=== PATIENT | female | born 1940 | race Caucasian/White ===

== ENCOUNTER → 2016-12-18 | Outpatient (CLI) | payer MEDICARE ==
[~2016-12-18] MED LIST: AC325T PO; ADV1DS1; ALB0.5V IH; ALBU17AE23 INH; ALBU17AE3; ALBUTERAL SULFATE; ALBUTEROL NEB; ASP325T; ASP81TEC; ASP81TEC PO; ASPI325T32 PO; CALC-913 PO; CHLO25CA10 PO; CHLR10C PO; CHOL10007 PO; CLOP75TA; CLPD75T; COZAAR; DGX.125T PO; DIGO125T PO; DIGO125T18 PO; DIGO125T91; DILT120C PO; DILT120C53 PO; FAMO20TA13 PO; FAMO20TA5 PO; FLUT1DIS27 IH; FORTICAL; FRSM40T; FURO20TA4 PO; FURO40TA4 PO; HDR10T; HYDR-2854 PO; HYDR-3584 PO; HYOS0.1296 PO; KCL10CCR; KCL10CCR PO; KCL20TCR; LEVO750T39 PO; LOSA25TA15; LOSA25TA5 PO; LOSA50TA36 PO; LOSARTAN 12.5 MG; MAGN250T PO; METH16TA PO; METH2TAB PO; MIRT30TA19 PO; MIRT30TA6 PO; MIRTAZAPINE 22.5 MG; MNTL10T; MRTZ15T; MULT-35 PO; NF-METHYLP PO; NTG; NTG SL; POTA10TA10 PO; PSYL1PAC10 PO; SENN-33 PO; SIMV40TA2 PO; SIMV40TA4 PO; SPIRONOLACTONE; TIOT18CA INH; TIOT18CA2 IH; TIOT18CA2 INH
--- NOTE | 2016-12-18 12:33 | Diagnostic Imaging Report ---
INDICATION: Intermittent right-sided headache. TECHNIQUE: Routine non contrast-enhanced axial images were obtained from the skull base to the vertex. COMPARISON: None. FINDINGS: The ventricles and cortical sulci are diffusely prominent, compatible with age-related volume loss. There are confluent areas of abnormal, low attenuation in the periventricular white matter. This is consistent with small vessel ischemic changes; age-indeterminate. There is no prior study available for comparison. There is no midline shift or mass-effect. No acute intra-axial hemorrhage is seen. There are no abnormal areas of increased or decreased density to suggest acute hemorrhage or edema. No extra-axial masses or collections are present. The bony calvarium is intact. The visualized paranasal sinuses are unremarkable. The mastoid air cells are clear. IMPRESSION: 1. No acute intracranial abnormality. No CT evidence of mass, acute infarct or intracranial hemorrhage. 2. Small vessel ischemic changes in the periventricular and subcortical white matter; likely chronic. Dictated by: Dictated on workstation # [id number]
== END ==
LOC: RAD 12:09
PROVIDERS: ATTEND Family Medicine
DX: R51 Headache (principal)
CPT/HCPCS: 70450

== ENCOUNTER 2017-01-04 07:25 | Inpatient (IN) | payer MEDICARE ==
[~2017-01-04] VITALS: Ht 152.4 cm; Wt 48.8 kg
[~2017-01-04 07:25] MED LIST changes: -CHOL10007 PO; -DIGO125T18 PO; -DILT120C53 PO; -HYDR-3584 PO; -LEVO750T39 PO; -LOSA50TA36 PO; -MAGN250T PO; -MIRT30TA6 PO; -POTA10TA10 PO; -SIMV40TA4 PO; -TIOT18CA2 IH
--- NOTE | 2017-01-04 07:48 | ED General ---
General Chief Complaint: Cough/Cold/Flu Symptoms Stated Complaint: SINUS DRAINAGE/CHEST CONGESTION Source of Information: Patient Exam Limitations: No Limitations History of Present Illness Time Seen by Provider: 07:33 Initial Comments Here with report of central chest tightness and aching that has been going on since last Wednesday morning (3 days). Reports sinus drainage and cough. Also reports fever and chills yesterday. Denies nausea or vomiting. Denies rash. Timing/Duration: 3-4 Days, Getting Worse Severity: Moderate Associated Systoms: Chest Pain Cough Fever/ChillsNo Nausea/Vomiting, Shortness of AirNo Weakness Allergies and Home Medications Allergies Coded Allergies: diphenhydramine HCl (Unverified Allergy, Severe, anaphalaxis, 09/10/14) Pt states this happened several yrs ago and that she had almost forgotten about it because she has avoided t for so long. fentanyl (Unverified Allergy, Mild, 09/10/14) PT DOES NOT WANT TO TAKE--SHE STAES IT MADE HER COPD WORSE midazolam (Unverified Allergy, Mild, PT TAKE LIBRIUM AT HOME, 09/10/14) PT DOESN'T WANT TO TAKE--SHE STATED IT MADE HER COPD OWRSE. Beta-Blockers (Beta-Adrenergic Bloc (Verified Allergy, Unknown, 09/10/14) Cephalosporins (Verified Allergy, Unknown, HAS RECEIVED CEFEPIME IN PAST W /O PROBLEM, 09/14/14) Penicillins (Verified Allergy, Unknown, HAS REC AZACTAM IN PAST WITHOUT PROBLEMS, 09/10/14) risedronic acid (Verified Allergy, Unknown, 09/10/14) prednisone (Unverified Adverse Reaction, Intermediate, Large doses cause SOA, 09/10/14) meperidine (Unverified Adverse Reaction, Mild, NAUSEA, 09/10/14) propofol (Unverified Adverse Reaction, Mild, 09/10/14) PT DOES NOT WANT TO TAKE--SHE STATES IT MADE HER COPD WORSE Erythromycin Base (Verified Adverse Reaction, Unknown, MAKES PATIENT NAUSEADED, 09/10/14) Home Medications Albuterol 2.5 Mg/0.5 Ml Nebu 2.5 MG NEB TID (Reported) Albuterol 17 Gm Aerosol 1 PUFF INH HS PRN PRN SHORTNESS OF BREATH (Reported) Aspirin 81 Mg Tabec 81 MG PO DAILY (Reported) Calcium Carbonate/Vitamin D3 1 Each Tablet 1 TAB PO DAILY (Reported) Chlordiazepoxide Hcl 25 Mg Capsule 25 MG PO BID (Reported) Digoxin 0.125 Mg Tab 0.0625 MG PO DAILY (Reported) TAKES 1/2 (0.125MG) TABLET Diltiazem Hcl 120 Mg Cap.sr.24h 120 MG PO DAILY (Reported) Famotidine 20 Mg Tablet 20 MG PO BID (Reported) Fluticasone/Salmeterol 1 Disk Inhp 1 PUFF IH BID (Reported) Furosemide 20 Mg Tablet 20 MG PO EVERY OTHER DAY (Reported) Hydroxyzine Hcl 10 Mg Tablet 10 MG PO HS (Reported) Hyoscyamine Sulfate 0.125 Mg Tablet #20 0.125 MG PO Q4H PRN PRN SPASMS Prescribed by: MELODY PAZ on 07/13/15 1438 Losartan Potassium 25 Mg Tablet 25 MG PO DAILY (Reported) Losartan Potassium 25 Mg Tablet 25 MG PO HS PRN PRN BLOOD PRESSURE ABOVE 100/60 (Reported) Mirtazapine 30 Mg Tablet 30 MG PO HS (Reported) Multivitamin 1 Each Tablet 1 TAB PO DAILY (Reported) Potassium Chloride 10 Meq Tablet.sa 10 MEQ PO EVERY OTHER DAY (Reported) Sennosides/Docusate Sodium 1 Each Tablet #30 2 EACH PO BID Prescribed by: MELODY PAZ on 07/13/15 1438 Simvastatin 40 Mg Tablet 40 MG PO HS (Reported) Tiotropium [place] 1 Inh Aerp 1 CAP INH DAILY (Reported) Constitutional: see HPI chills fever malaise EENTM: nose congestion see HPINo throat pain Respiratory: see HPI cough short of breath wheezing Cardiovascular: see HPI chest painNo edema Gastrointestinal: no symptoms reportedNo abdominal pain, No nausea, No vomiting Genitourinary: no symptoms reported : No Musculoskeletal: no symptoms reported Skin: no symptoms reported Psychiatric/Neurological: No Symptoms Reported All Other Systems Reviewed Negative Unless Noted: Yes Past Tyjcqld-Rcfuyu-Iqtmww Hx Patient Social History Alcohol Use: Denies Use Recreational Drug Use: No Smoking Status: Former Smoker Former Smoker/When Quit: Jul 09, 2006 Recent Foreign Travel: No Contact w/Someone Who Travel: No Recent Hopitalizations: Yes Immunizations Up To Date Tetanus Booster (TDap): More than 5yrs PED Vaccines UTD: No Date of Pneumonia Vaccine: Jul 11, 2012 Date of Influenza Vaccine: Aug 15, 2014 Surgeries HX Surgeries: Yes (thoracotomy) Respiratory Hx Respiratory Disorders: Yes (HOME O2 AT 2L) Respiratory Disorders: Pneumonia, COPD, Emphysema Cardiovascular Hx Cardiac Disorders: Yes (ISCHEMIC CARDIOMYOPATHY) Neurological Hx Neurological Disorders: No Reproductive System Hx Reproductive Disorders: No Sexually Transmitted Disease: No HIV/AIDS: No Female Reproductive Disorders: Denies Genitourinary Hx Genitourinary Disorders: No Gastrointestinal Hx Gastrointestinal Disorders: Yes Gastrointestinal Disorders: Gastroesophageal Reflux, Hemorrhoids, Gall Bladder Disease Musculoskeletal Hx Musculoskeletal Disorders: Yes Musculoskeletal Disorders: Arthritis Endocrine Hx Endocrine Disorders: No HEENT HX ENT Disorders: Yes HEENT Disorders: Cataract Loss of Vision: Denies Hearing Impairment: Hard of Hearing Cancer Hx Cancer: No Psychosocial Hx Psychiatric Problems: Yes Behavioral Health Disorders: Anxiety, PTSD Integumentary HX Skin/Integumentary Disorder: No Blood Transfusions Hx Blood Disorders: No Adverse Reaction to a Blood Tr: No Reviewed Nursing Assessment Reviewed/Agree w Nursing PMH: Yes Family Medical History Family Medial History: Alcoholism SONS Asthma DAUGHTER SONS Cardiovascular disease 19 MOTHER Cataracts 19 MOTHER Deafness or hearing loss G8 SISTER Diabetes mellitus SONS Gastroenteritis SONS Headache disorder SONS Hypertension SONS Myocardial infarction 19 FATHER Psychosocial problem 19 MOTHER Physical Exam-Suspected Sepsis Physical Exam Vital Signs Vital Sign - Last 12Hours 01/04/17 07:31 Temp 99.2 Pulse 100 Resp 18 B/P 180/77 Capillary Refill : General Appearance: No Apparent Distress WD/WN HEENT: PERRL/EOMI Pharynx Normal Other (nasal congestion bilateral) Neck: Non Tender Supple Respiratory: No Respiratory Distress Crackles (left upper lobe) Wheezing ( mild throughout) Other (does have pursed lip breathing. Has chronic lung disease and what appeared to be her baseline) Cardiovascular: No Murmur Tachycardia Gastrointestinal: Non Tender Soft Back: Normal Inspection No CVA Tenderness No Vertebral Tenderness Extremity: Normal Capillary Refill Normal Range of Motion Non Tender No Calf Tenderness Neurologic/Psychiatric: Alert Oriented x3 No Motor/Sensory Deficits Skin: normal color warm/dry Progress/Results/Core Measures Suspected Sepsis SIRS Temperature: Pulse: Respiratory Rate: Laboratory Tests 01/04/17 07:54: White Blood Count 12.8H Blood Pressure / Mean: Laboratory Tests 01/04/17 07:54: Creatinine 1.03, INR Comment 1.0, Platelet Count 283, Total Bilirubin 0.5 Results/Orders Lab Results Laboratory Tests Test 01/04/17 07:54 Range/Units Activated Partial Thromboplast Time 31 24-35 SEC Alanine Aminotransferase (ALT/SGPT) 19 0-55 U/L Albumin 3.7 3.2-4.5 G/DL Alkaline Phosphatase 67 40-136 U/L Anion Gap 9 5-14 MMOL/L Aspartate Amino Transf (AST/SGOT) 21 5-34 U/L BUN/Creatinine Ratio 14 Basophils # (Auto) 0.0 0.0-0.1 10^3/uL Basophils (%) (Auto) 0 0-10 % Blood Urea Nitrogen 14 7-18 MG/DL Calcium Level 9.5 8.5-10.1 MG/DL Carbon Dioxide Level 26 21-32 MMOL/L Chloride Level 99 98-107 MMOL/L Creatinine 1.03 0.60-1.30 MG/DL Eosinophils # (Auto) 0.2 0.0-0.3 10^3/uL Eosinophils (%) (Auto) 2 0-10 % Estimat Glomerular Filtration Rate 52 Glucose Level 102 70-105 MG/DL Hematocrit 36 35-52 % Hemoglobin 11.8 11.5-16.0 G/DL INR Comment 1.0 0.8-1.4 Lactic Acid Level 0.8 0.5-2.0 MMOL/L Lymphocytes # (Auto) 1.0 1.0-4.0 X 10^3 Lymphocytes (%) (Auto) 8 L 12-44 % Mean Corpuscular Hemoglobin 31 25-34 PG Mean Corpuscular Hemoglobin Concent 33 32-36 G/DL Mean Corpuscular Volume 96 80-99 FL Mean Platelet Volume 8.7 7.4-10.4 FL Monocytes # (Auto) 1.5 H 0.0-1.0 X 10^3 Monocytes (%) (Auto) 12 0-12 % Neutrophils # (Auto) 10.2 H 1.8-7.8 X 10^3 Neutrophils (%) (Auto) 79 H 42-75 % Platelet Count 283 130-400 10^3/uL Potassium Level 4.6 3.6-5.0 MMOL/L Prothrombin Time 12.7 12.2-14.7 SEC Red Blood Count 3.76 L 4.35-5.85 10^6/uL Red Cell Distribution Width 12.7 10.0-14.5 % Sodium Level 134 L 135-145 MMOL/L Total Bilirubin 0.5 0.1-1.0 MG/DL Total Protein 6.8 6.4-8.2 G/DL Troponin I < 0.30 <0.30 NG/ML White Blood Count 12.8 H 4.3-11.0 10^3/uL My Orders Orders-PAUL LEBRON MD Cbc With Automated Diff (01/04/17 07:39) Comprehensive Metabolic Panel (01/04/17 07:39) Lactic Acid Analyzer (01/04/17 07:39) Blood Culture (01/04/17 07:39) Sputum Culture (01/04/17 07:39) Ua Culture If Indicated (01/04/17 07:39) Protime With Inr (01/04/17 07:39) Partial Thromboplastin Time (01/04/17 07:39) O2 (01/04/17 07:39) Saline Lock/Iv-Start (01/04/17 07:39) Ekg Tracing (01/04/17 07:39) Troponin I (01/04/17 07:39) Vital Signs Adult Sepsis Patie Q1HR (01/04/17 07:39) Remove Rings In Anticipation O (01/04/17 07:39) Chest Pa/Lat (2 View) (01/04/17 07:39) Ct Chest Wo (01/04/17 09:26) Vital Signs/I&O Vital Sign - Last 12Hours 01/04/17 07:31 Temp 99.2 Pulse 100 Resp 18 B/P 180/77 Capillary Refill : Progress Note : Progress Note Seen and evaluated. IV, labs, chest x-ray, blood cultures and lactic acid ordered. We will also check troponin and EKG due to chest pain. Patient takes 81 milligrams of aspirin daily. Monitor patient. 0920: Chest x-ray findings noted. CT chest ordered to help with the termination of chronic disease versus pneumonia. 1109: Discussed case with Dr. Paz. Patient has findings of left upper lobe pneumonia. She has severe chronic lung disease that will require inpatient management. Initiate Levaquin 750 mg IV. Discussed with Dr. King and he accepts patient for consult. Patient has multiple antibiotic allergies. She is at risk for pseudomonas type infection. I did discuss the case with Sb Cortes, pharmacist. He is recommending meropenem as second agent and he will adjust as appropriate in consultation with medical team. Discussed findings and concerns with patient and she agrees with admission. ECG Initial ECG Impression Date: Jan 04, 2017 Initial ECG Impression Time: 08:07 Initial ECG Rate: 93 Initial ECG Rhythm: Normal Sinus Comment Sinus rhythm with normal axis. No evidence of ST elevation MD. Diffuse repolarization abnormality noted on previous exam 04/21/13. Interpreted by me. Diagnostic Imaging Diagonstic Imaging: Xray Plain Films/CT/US/NM/MRI: chest Comments VIA [facility]. [place], [place] NAME: HAI HARGROVE [facility] REC#: [id number] PT STATUS: REG ER : 1940 PHYSICIAN: PAUL LEBRON MD ADMIT DATE: 01/04/17/ER Draft Date of Exam:01/04/17 CHEST PA/LAT (2 VIEW) INDICATION: Dyspnea and sternal pain. PA and lateral views of the chest are obtained. Comparison is made to study of 10/12/2016. Bilateral air trapping is again noted with prominence of interstitial markings in both lungs. The masslike density in the left apex is slightly more conspicuous on the current exam. There is no evidence of pneumothorax. No significant pleural fluid is identified. IMPRESSION: Findings remain consistent with COPD with mild focally increased density in the left apex. This may represent progression of fibrosis; however, superimposed inflammation is not excluded. This could be further assessed with short-term radiographic followup or CT imaging. Dictated on workstation # [id number] Dict: 01/04/17 0854 Trans: 01/04/17 0858 [id number] Interpreted by: SUZI WILLIAM MD Electronically signed by: Reviewed: Reviewed by Me Diagonstic Imaging: CT Plain Films/CT/US/NM/MRI: chest, abdomen Comments NAME: HAI HARGROVE [facility] REC#: [id number] PT STATUS: REG ER : 1940 PHYSICIAN: PAUL LEBRON MD ADMIT DATE: 01/04/17/ER Signed Date of Exam: 01/04/17 CT CHEST WO PROCEDURE: CT chest without contrast. TECHNIQUE: Multiple contiguous axial images were obtained through the chest without the use of intravenous contrast. INDICATION: Fever. FINDINGS: There is partial opacification with likely a small fluid component seen in a left upper lobe cavity or bullae. This is associated with an irregular infiltrate along its inferior aspect involving an area measuring 3.5 x 2.3 CM. This is larger compared to 10/14/2016 exam and is completely new when compared to 03/06/2015 exam. There is background severe emphysema and areas of scarring seen in both lungs. This is particularly prominent in the lung apices. Bullous changes in the right lung apex is particularly prominent as well. There is no significant pleural effusion. 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 No mediastinal mass. There is a trace pericardial effusion. The heart size is normal. No significant lymphadenopathy in the mediastinum is seen. No axillary lymphadenopathy. The alicia are not opacified on this unenhanced exam with no definitive hilar mass. Sections in the upper abdomen demonstrate a 1.1 CM cyst in the spleen similar to prior exams. The osseous structures appear grossly unremarkable. IMPRESSION: 1. Partial opacification and adjacent alveolar consolidation at a left upper lobe old cavity may relate to a superimposed infection. Followup CT scan of the chest in 6 weeks is recommended to ensure resolution. 2. Advanced emphysema changes. Dictated by: Dictated on workstation # [id number] Dict: 01/04/17 1006 Trans: 01/04/17 1110 [facility] [id number] Interpreted by: ANSLEY DUNHAM MD Electronically signed by:ANSLEY DUNHAM MD 01/04/17 1113 Departure Communication Time/Spoke to Admitting Phy: 11:09 Time/Spoke to Consulting Physi: 11:11 Impression Impression: Primary Impression: Left upper lobe pneumonia Qualified Code: J18.1 - Lobar pneumonia, unspecified organism Disposition: ADMITTED INPATIENT Condition: Stable Decision to Admit Reason: Admit from ER (General) Decision to Admit/Date: Jan 04, 2017 Time/Decision to Admit Time: 11:09 Departure-Patient Inst. Referrals: MELODY PAZ DO (PCP/Family) Primary Care Physician PAUL LEBRON MD Jan 04, 2017 07:48
[2017-01-04 08:07] LABS: BASOPHILS % (AUTO) 0 % (0-10); EOSINOPHILS # (AUTO) 0.2 10^3/uL (0.0-0.3); EOSINOPHILS % (AUTO) 2 % (0-10); LYMPHOCYTES % (AUTO) 8 % (12-44); MEAN CORPUSCULAR HEMOGLOBIN 31 PG (25-34); MEAN CORPUSCULAR HGB CONC 33 G/DL (32-36); MEAN CORPUSCULAR VOLUME 96 FL (80-99); MEAN PLATELET VOLUME 8.7 FL (7.4-10.4); MONOCYTES # (AUTO) 1.5 X 10^3 (0.0-1.0); MONOCYTES % (AUTO) 12 % (0-12); NEUTROPHILS # (AUTO) 10.2 X 10^3 (1.8-7.8); NEUTROPHILS % (AUTO) 79 % (42-75); PLATELET COUNT 283 10^3/uL (130-400); RED BLOOD COUNT 3.76 10^6/uL (4.35-5.85); RED CELL DISTRIBUTION WIDTH 12.7 % (10.0-14.5); WHITE BLOOD COUNT 12.8 10^3/uL (4.3-11.0)
[2017-01-04 08:15] LABS: PROTHROMBIN TIME PATIENT 12.7 SEC (12.2-14.7)
[2017-01-04 08:23] LABS: ALANINE AMINOTRANSFERASE 19 U/L (0-55); ALBUMIN 3.7 G/DL (3.2-4.5); ANION GAP 9 MMOL/L (5-14); ASPARTATE AMINO TRANSFERASE 21 U/L (5-34); BILIRUBIN,TOTAL 0.5 MG/DL (0.1-1.0); BLOOD UREA NITROGEN 14 MG/DL (7-18); BUN/CREATININE RATIO 14; CALCIUM 9.5 MG/DL (8.5-10.1); CARBON DIOXIDE 26 MMOL/L (21-32); CHLORIDE 99 MMOL/L (98-107); CREATININE SERUM 1.03 MG/DL (0.60-1.30); GFR ESTIMATED 52; GLUCOSE 102 MG/DL (70-105); POTASSIUM 4.6 MMOL/L (3.6-5.0); SODIUM 134 MMOL/L (135-145); TOTAL PROTEIN 6.8 G/DL (6.4-8.2)
[2017-01-04 08:29] LABS: TROPONIN I < 0.30 NG/ML (<0.30)
--- NOTE | 2017-01-04 08:58 | Diagnostic Imaging Report ---
INDICATION: Dyspnea and sternal pain. PA and lateral views of the chest are obtained. Comparison is made to study of 10/12/2016. Bilateral air trapping is again noted with prominence of interstitial markings in both lungs. The masslike density in the left apex is slightly more conspicuous on the current exam. There is no evidence of pneumothorax. No significant pleural fluid is identified. IMPRESSION: Findings remain consistent with COPD with mild focally increased density in the left apex. This may represent progression of fibrosis; however, superimposed inflammation is not excluded. This could be further assessed with short-term radiographic followup or CT imaging. Dictated by: Dictated on workstation # [id number]
--- NOTE | 2017-01-04 10:27 | Diagnostic Imaging Report ---
PROCEDURE: CT chest without contrast. TECHNIQUE: Multiple contiguous axial images were obtained through the chest without the use of intravenous contrast. INDICATION: Fever. FINDINGS: There is partial opacification with likely a small fluid component seen in a left upper lobe cavity or bullae. This is associated with an irregular infiltrate along its inferior aspect involving an area measuring 3.5 x 2.3 CM. This is larger compared to 10/14/2016 exam and is completely new when compared to 03/06/2015 exam. There is background severe emphysema and areas of scarring seen in both lungs. This is particularly prominent in the lung apices. Bullous changes in the right lung apex is particularly prominent as well. There is no significant pleural effusion. 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 No mediastinal mass. There is a trace pericardial effusion. The heart size is normal. No significant lymphadenopathy in the mediastinum is seen. No axillary lymphadenopathy. The alicia are not opacified on this unenhanced exam with no definitive hilar mass. Sections in the upper abdomen demonstrate a 1.1 CM cyst in the spleen similar to prior exams. The osseous structures appear grossly unremarkable. IMPRESSION: 1. Partial opacification and adjacent alveolar consolidation at a left upper lobe old cavity may relate to a superimposed infection. Followup CT scan of the chest in 6 weeks is recommended to ensure resolution. 2. Advanced emphysema changes. Dictated by: Dictated on workstation # [id number]
[2017-01-04] MEDS ORDERED: LEVOFLOXACIN 750 MG/150 ML IV 150 ML IV ONE (11:45)
[2017-01-04] MEDS ORDERED: MEROPENEM 500 MG/NS 100 ML IVPB IV SCH ×2 (12:19)
[2017-01-04] MEDS: RT-ALBUTEROL SULF 2.5 MG/3 ML PRE-MIX VIAL INH PRN (12:31)
[2017-01-04] MEDS ORDERED: MAGN250T PO (13:03)
[2017-01-04] MEDS ORDERED: SIMV40TA4 PO (13:03)
[2017-01-04] MEDS ORDERED: TIOT18CA2 IH (13:03)
[2017-01-04] MEDS ORDERED: MIRT30TA6 PO (13:03)
[2017-01-04] MEDS ORDERED: HYDR-3584 PO (13:03)
[2017-01-04] MEDS ORDERED: DILT120C53 PO (13:03)
[2017-01-04] MEDS ORDERED: SENN-33 PO (13:03)
[2017-01-04] MEDS ORDERED: CHLO25CA10 PO (13:03)
[2017-01-04] MEDS ORDERED: FURO20TA4 PO (13:03)
[2017-01-04] MEDS ORDERED: POTA10TA10 PO (13:03)
[2017-01-04] MEDS ORDERED: DIGO125T18 PO (13:03)
[2017-01-04] MEDS ORDERED: LOSA50TA36 PO (13:03)
[2017-01-04] MEDS ORDERED: CHOL10007 PO (13:03)
[2017-01-04] MEDS: ACETAMINOPHEN 500 MG TAB (TYLENOL) PO PRN ×2 (13:11→21:01)
[2017-01-04] MEDS ORDERED: RT-ALBUTEROL SULF 2.5 MG/3 ML PRE-MIX VIAL INH SCH (14:00)
[2017-01-04 16:00] VITALS: BP 106/58
[2017-01-04] MEDS: NS IV 1000 ML 1,000 ML IV SCH (16:19)
[2017-01-04] MEDS: MEROPENEM 500 MG/NS 100 ML IVPB IV SCH ×4 (16:23→22:53)
[2017-01-04] MEDS ORDERED: SENNA W/DOCUSATE (SENOKOT S) TABLET PO PRN (19:00)
[2017-01-04] MEDS ORDERED: PATIENT MAY USE OWN MEDS, ALL MC SCH (19:00)
[2017-01-04 19:05] VITALS: BP 127/58
--- NOTE | 2017-01-04 19:28 | History & Physicial ---
History of Present Illness History of Present Illness Reason for visit/HPI This is a 76 year old female with a known history of COPD who presented to the emergency room with a 3 days history of worsening chest tightness and fever and chills. She was found to have a left sided pneumonia and it was decided to admit her for IV antibiotics. Date of Admission Jan 04, 2017 at 11:15 I consulted on this patient on 01/04/17 19:22 Attending Physician Ruthie Paz DO Admitting Physician Ruthie Paz DO Consult Allergies and Home Medications Allergies Coded Allergies: diphenhydramine HCl (Unverified Allergy, Severe, anaphalaxis, 09/10/14) Pt states this happened several yrs ago and that she had almost forgotten about it because she has avoided t for so long. fentanyl (Unverified Allergy, Mild, 09/10/14) PT DOES NOT WANT TO TAKE--SHE STAES IT MADE HER COPD WORSE midazolam (Unverified Allergy, Mild, PT TAKE LIBRIUM AT HOME, 09/10/14) PT DOESN'T WANT TO TAKE--SHE STATED IT MADE HER COPD OWRSE. Beta-Blockers (Beta-Adrenergic Bloc (Verified Allergy, Unknown, 09/10/14) Cephalosporins (Verified Allergy, Unknown, HAS RECEIVED CEFEPIME IN PAST W /O PROBLEM, 09/14/14) Penicillins (Verified Allergy, Unknown, HAS REC AZACTAM IN PAST WITHOUT PROBLEMS, 09/10/14) risedronic acid (Verified Allergy, Unknown, 09/10/14) prednisone (Unverified Adverse Reaction, Intermediate, Large doses cause SOA, 09/10/14) meperidine (Unverified Adverse Reaction, Mild, NAUSEA, 09/10/14) propofol (Unverified Adverse Reaction, Mild, 09/10/14) PT DOES NOT WANT TO TAKE--SHE STATES IT MADE HER COPD WORSE erythromycin base (Verified Adverse Reaction, Unknown, MAKES PATIENT NAUSEADED, 09/10/14) Home Medications Albuterol 2.5 Mg/0.5 Ml Nebu 2.5 MG IH QID (Reported) Albuterol 17 Gm Aerosol 1 PUFF INH HS PRN PRN SHORTNESS OF BREATH (Reported) Aspirin 81 Mg Tabec 81 MG PO DAILY (Reported) Chlordiazepoxide HCl 25 Mg Capsule 25 MG PO BID (Reported) Cholecalciferol (Vitamin D3) 1,000 Unit Capsule 1,000 UNIT PO DAILY (Reported) Digoxin 125 Mcg Tablet 62.5 MG PO DAILY (Reported) TAKES 1/2 OF A (125 MCG) TABLET Diltiazem HCl 120 Mg Cap.er.24h 120 MG PO DAILY (Reported) Famotidine 20 Mg Tablet 20 MG PO BID (Reported) Fluticasone/Salmeterol 1 Disk Inhp 1 PUFF IH BID (Reported) Furosemide 20 Mg Tablet 20 MG PO Q48H (Reported) Hydroxyzine HCl 10 Mg Tablet 10 MG PO HS (Reported) Losartan Potassium 50 Mg Tablet 50 MG PO BID (Reported) Magnesium 250 Mg Tablet 250 MG PO DAILY (Reported) Mirtazapine 30 Mg Tablet 30 MG PO HS (Reported) Potassium Chloride 10 Meq Tablet.er 10 MEQ PO Q48H (Reported) Sennosides/Docusate Sodium 1 Each Tablet 1 TAB PO DAILY PRN PRN CONSTIPATION ( Reported) Simvastatin 40 Mg Tablet 40 MG PO HS (Reported) Tiotropium [place] 1 Inh Aerp 2 PUFF IH DAILY (Reported) Past Bbbrsaw-Ghrvtn-Ilfesn Hx Patient Social History Alcohol Use: Denies Use Recreational Drug Use: No Smoking Status: Former Smoker Former smoker/When Quit: Jul 09, 2006 Type Used: Cigarettes Physical Abuse Screen: No Sexual Abuse: No Recent Foreign Travel: No Contact w/other who traveled: No Recent Hopitalizations: Yes Recent Infectious Disease Expo: No Immunizations Up To Date Tetanus Booster (TDap): More than 5yrs Date of Pneumonia Vaccine: Jul 11, 2012 Date of Influenza Vaccine: Aug 04, 2016 Seasonal Allergies Seasonal Allergies: Yes Surgeries HX Surgeries: Yes (thoracotomy) Respiratory Hx Respiratory Disorders: Yes (HOME O2 AT 2L) Cardiovascular Hx Cardiovascular Disorders: Yes (ISCHEMIC CARDIOMYOPATHY) Neurological Hx Neurological Disorders: No Reproductive System Hx Reproductive Disorders: No Sexually Transmitted Disease: No HIV/AIDS: No Female Reproductive Disorders: Denies Genitourinary Hx Genitourinary Disorders: No Gastrointestinal Hx Gastrointestinal Disorders: Yes Gastrointestinal Disorders: Gastroesophageal Reflux, Hemorrhoids, Gall Bladder Disease Musculoskeletal Hx Musculoskeletal Disorders: Yes Musculoskeletal Disorders: Arthritis Endocrine Hx Endocrine Disorders: No HEENT HX ENT Disorders: Yes HEENT Disorders: Cataract Loss of Vision: Denies Hearing Impairment: Hard of Hearing Cancer Hx Cancer: No Psychosocial Hx Psychiatric Problems: Yes Behavioral Health Disorders: Anxiety, PTSD Integumentary HX Skin/Integumentary Disorder: No Blood Transfusions Hx Blood Disorders: No Adverse Reaction to a Blood Tr: No Reviewed Nursing Assessment Reviewed/Agree w Nursing PMH: Yes Family Medical History Family Hx: Alcoholism SONS Asthma DAUGHTER SONS Cardiovascular disease 19 MOTHER Cataracts 19 MOTHER Deafness or hearing loss G8 SISTER Diabetes mellitus SONS Gastroenteritis SONS Headache disorder SONS Hypertension SONS Myocardial infarction 19 FATHER Psychosocial problem 19 MOTHER No Family History of: AIDS Abdominal aortic aneurysm Haskell's disease Alzheimer's disease Aphasia Arthritis Cancer of mouth Colon cancer Completed stroke Congenital disease Congenital heart disease Coronary thrombosis Cystic fibrosis Dementia Drug abuse Dysphasia Fibrocystic disease of breast Glaucoma Hypercholesterolemia Infertility Kidney disease Neoplasm Not obtainable due to adoption Osteoporosis Parkinson's disease Prostate cancer Respiratory disorder Seizure disorder Severe allergy Thyroid disease Tuberculosis Visual disorder Constitutional: chills fever weakness EENTM: nose congestion Respiratory: cough dyspnea on exertion short of breath wheezing Cardiovascular: chest pain (tightness) Gastrointestinal: No RUQ, No LUQ, No RLQ, No LLQ, No no symptoms reported, No see HPI, No abdominal pain, No constipation, No diarrhea, No dysphagia, No hematemesis, No heartburn, No jaundice, No loss of appetite, No melena, No nausea, No vomiting, No other Genitourinary: No no symptoms reported, No see HPI, No decreased output, No discharge, No dysuria, No frequency, No hematuria, No hesitancy, No incontinence , No nocturia, No pain, No other Musculoskeletal: No no symptoms reported, No see HPI, No back pain, No gout, No joint pain, No joint swelling, No muscle pain, No muscle stiffness, No muscle cramps, No muscle twitching, No muscle weakness, No neck pain, No other Skin: No no symptoms reported, No see HPI, No change in color, No change in hair/nails, No dryness, No hx of skin cancer, No lesions, No lumps, No pruritus , No rash, No other Psychiatric/Neurological: Anxiety Physical Exam Vital Signs Vital Sign - Last 12Hours 01/04/17 01/04/17 01/04/17 07:31 11:55 12:00 Temp 99.2 Pulse 100 Resp 18 B/P 180/77 Pulse Ox 98 O2 Delivery Nasal Cannula O2 Flow Rate 2 Capillary Refill : Less Than 3 Seconds General Appearance: No Apparent Distress HEENT: Normal ENT Inspection Neck: Supple Respiratory: Decreased Breath Sounds Wheezing Cardiovascular: Regular Rate, Rhythm Systolic Murmur Gallop/S4 Gastrointestinal: Normal Bowel Sounds Non Tender Soft Rectal: Deferred Back: No CVA Tenderness Extremity: Non Tender No Calf Tenderness No Pedal Edema Neurologic/Psychiatric: Alert Oriented x3 Skin: Normal Color Warm/Dry Comments Laboratory Tests 01/04/17 07:54: Activated Partial Thromboplast Time 31, Alanine Aminotransferase (ALT/SGPT) 19, Albumin 3.7, Alkaline Phosphatase 67, Anion Gap 9, Aspartate Amino Transf (AST/ SGOT) 21, BUN/Creatinine Ratio 14, Basophils # (Auto) 0.0, Basophils (%) (Auto) 0, Blood Urea Nitrogen 14, Calcium Level 9.5, Carbon Dioxide Level 26, Chloride Level 99, Creatinine 1.03, Eosinophils # (Auto) 0.2, Eosinophils (%) (Auto) 2, Estimat Glomerular Filtration Rate 52, Glucose Level 102, Hematocrit 36, Hemoglobin 11.8, INR Comment 1.0, Lactic Acid Level 0.8, Lymphocytes # (Auto) 1.0, Lymphocytes (%) (Auto) 8L, Mean Corpuscular Hemoglobin 31, Mean Corpuscular Hemoglobin Concent 33, Mean Corpuscular Volume 96, Mean Platelet Volume 8.7, Monocytes # (Auto) 1.5H, Monocytes (%) (Auto) 12, Neutrophils # ( Auto) 10.2H, Neutrophils (%) (Auto) 79H, Platelet Count 283, Potassium Level 4.6 , Prothrombin Time 12.7, Red Blood Count 3.76L, Red Cell Distribution Width 12.7 , Sodium Level 134L, Total Bilirubin 0.5, Total Protein 6.8, Troponin I < 0.30, White Blood Count 12.8H Assessment/Plan Assessment and Plan 1. Left Upper Lobe Pneumonia--admit and start Levaquin/Meropenem 2. COPD--resume home inhalers, SVNs with albuterol and home oxygen 3. Hypertension--resume home meds 4. History of CAD--stable Clinical Quality Measures DVT/VTE Risk/Contraindication: Risk Factor Score Per Nursin RFS Level Per Nursing on Admit: 4+=Very High RUTHIE PAZ DO Jan 04, 2017 19:28
[2017-01-04] MEDS: MIRTAZAPINE 15 MG (REMERON) TAB PO SCH (21:00)
[2017-01-04] MEDS ORDERED: [UNRECOGNIZED DRUG - OTHER] IH SCH (21:00)
[2017-01-04] MEDS: ATORVASTATIN 20 MG (LIPITOR) TABLET PO SCH (21:00)
[2017-01-04] MEDS ORDERED: SIMvastatin 40 MG (ZOCOR) TAB PO SCH (21:00)
[2017-01-04] MEDS ORDERED: SALMETEROL IH SCH (21:00)
[2017-01-04] MEDS: LOSARTAN 50 MG (COZAAR) TAB PO SCH (21:00)
[2017-01-04] MEDS ORDERED: chlordiazePOXIDE 25 MG (LIBRIUM) CAP NON-FORMULARY PO SCH (21:00)
[2017-01-04] MEDS: FAMOTIDINE 20 MG (PEPCID) TABLET PO SCH (21:00)
[2017-01-04] MEDS: hydrOXYzine (ATARAX) 10 MG TAB PO SCH (21:00)
[2017-01-04] MEDS ORDERED: FLUTICASONE IH SCH (21:00)
[2017-01-04] MEDS ORDERED: NON-FORMULARY MEDICATION 1 EA EA (Mirtazapine 30 MG) PO SCH (21:00)
[2017-01-04] MEDS: RT-ADVAIR HFA 115/21 MCG PER PUFF IH SCH (21:15)
[2017-01-05] VITALS: BP 100/56
[2017-01-05] MEDS: RT-ALBUTEROL SULF 2.5 MG/3 ML PRE-MIX VIAL INH PRN (03:14)
[2017-01-05 04:00] VITALS: BP 109/58
[2017-01-05 05:08] LABS: BASOPHILS % (AUTO) 0 % (0-10); EOSINOPHILS # (AUTO) 0.2 10^3/uL (0.0-0.3); EOSINOPHILS % (AUTO) 2 % (0-10); LYMPHOCYTES % (AUTO) 10 % (12-44); MEAN CORPUSCULAR HEMOGLOBIN 31 PG (25-34); MEAN CORPUSCULAR HGB CONC 33 G/DL (32-36); MEAN CORPUSCULAR VOLUME 95 FL (80-99); MEAN PLATELET VOLUME 8.8 FL (7.4-10.4); MONOCYTES # (AUTO) 1.3 X 10^3 (0.0-1.0); MONOCYTES % (AUTO) 13 % (0-12); NEUTROPHILS # (AUTO) 7.3 X 10^3 (1.8-7.8); NEUTROPHILS % (AUTO) 75 % (42-75); PLATELET COUNT 278 10^3/uL (130-400); RED BLOOD COUNT 3.36 10^6/uL (4.35-5.85); RED CELL DISTRIBUTION WIDTH 12.5 % (10.0-14.5); WHITE BLOOD COUNT 9.7 10^3/uL (4.3-11.0)
[2017-01-05 05:39] LABS: ALBUMIN 3.2 G/DL (3.2-4.5); BILIRUBIN,TOTAL 0.5 MG/DL (0.1-1.0); CALCIUM 9.1 MG/DL (8.5-10.1); CREATININE SERUM 1.03 MG/DL (0.60-1.30); POTASSIUM 4.2 MMOL/L (3.6-5.0)
[2017-01-05] MEDS: MEROPENEM 500 MG/NS 100 ML IVPB IV SCH ×6 (06:15→22:10)
[2017-01-05] MEDS: RT-ALBUTEROL SULF 2.5 MG/3 ML PRE-MIX VIAL INH SCH ×4 (06:46→19:27)
[2017-01-05] MEDS: RT-ADVAIR HFA 115/21 MCG PER PUFF IH SCH ×2 (06:46→19:27)
--- NOTE | 2017-01-05 07:42 | Pulmonary Consultation ---
History of Present Illness History of Present Illness Date of Consultation 01/05/17 07:37 Date of Admission History of Present Illness 76yo with hx of COPD presented to ED secondary to worsening SOB, chest tightness , fever, and chills over the last 3-4 days. She was dx with left sided pneumonia and was admitted to 4th floor with IV Abx. I am consulted for pulmonary management. Allergies and Home Medications Allergies Coded Allergies: diphenhydramine HCl (Unverified Allergy, Severe, anaphalaxis, 09/10/14) Pt states this happened several yrs ago and that she had almost forgotten about it because she has avoided t for so long. fentanyl (Unverified Allergy, Mild, 09/10/14) PT DOES NOT WANT TO TAKE--SHE STAES IT MADE HER COPD WORSE midazolam (Unverified Allergy, Mild, PT TAKE LIBRIUM AT HOME, 09/10/14) PT DOESN'T WANT TO TAKE--SHE STATED IT MADE HER COPD OWRSE. Beta-Blockers (Beta-Adrenergic Bloc (Verified Allergy, Unknown, 09/10/14) Cephalosporins (Verified Allergy, Unknown, HAS RECEIVED CEFEPIME IN PAST W /O PROBLEM, 09/14/14) Penicillins (Verified Allergy, Unknown, HAS REC AZACTAM IN PAST WITHOUT PROBLEMS, 09/10/14) risedronic acid (Verified Allergy, Unknown, 09/10/14) prednisone (Unverified Adverse Reaction, Intermediate, Large doses cause SOA, 09/10/14) meperidine (Unverified Adverse Reaction, Mild, NAUSEA, 09/10/14) propofol (Unverified Adverse Reaction, Mild, 09/10/14) PT DOES NOT WANT TO TAKE--SHE STATES IT MADE HER COPD WORSE erythromycin base (Verified Adverse Reaction, Unknown, MAKES PATIENT NAUSEADED, 09/10/14) Home Medications Albuterol 2.5 Mg/0.5 Ml Nebu 2.5 MG IH QID (Reported) Albuterol 17 Gm Aerosol 1 PUFF INH HS PRN PRN SHORTNESS OF BREATH (Reported) Aspirin 81 Mg Tabec 81 MG PO DAILY (Reported) Chlordiazepoxide HCl 25 Mg Capsule 25 MG PO BID (Reported) Cholecalciferol (Vitamin D3) 1,000 Unit Capsule 1,000 UNIT PO DAILY (Reported) Digoxin 125 Mcg Tablet 62.5 MG PO DAILY (Reported) TAKES 1/2 OF A (125 MCG) TABLET Diltiazem HCl 120 Mg Cap.er.24h 120 MG PO DAILY (Reported) Famotidine 20 Mg Tablet 20 MG PO BID (Reported) Fluticasone/Salmeterol 1 Disk Inhp 1 PUFF IH BID (Reported) Furosemide 20 Mg Tablet 20 MG PO Q48H (Reported) Hydroxyzine HCl 10 Mg Tablet 10 MG PO HS (Reported) Losartan Potassium 50 Mg Tablet 50 MG PO BID (Reported) Magnesium 250 Mg Tablet 250 MG PO DAILY (Reported) Mirtazapine 30 Mg Tablet 30 MG PO HS (Reported) Potassium Chloride 10 Meq Tablet.er 10 MEQ PO Q48H (Reported) Sennosides/Docusate Sodium 1 Each Tablet 1 TAB PO DAILY PRN PRN CONSTIPATION ( Reported) Simvastatin 40 Mg Tablet 40 MG PO HS (Reported) Tiotropium [place] 1 Inh Aerp 2 PUFF IH DAILY (Reported) Past Jyxjmna-Ilirwr-Qsgczw Hx Patient Social History Alcohol Use: Denies Use Recreational Drug Use: No Smoking Status: Former Smoker Type Used: Cigarettes Former Smoker/When Quit: Jul 09, 2006 Recent Foreign Travel: No Contact w/Someone Who Travel: No Recent Infectious Disease Expo: No Recent Hopitalizations: Yes Physical Abuse Screen: No Sexual Abuse: No Immunizations Up To Date Tetanus Booster (TDap): More than 5yrs PED Vaccines UTD: No Date of Pneumonia Vaccine: Jul 11, 2012 Date of Influenza Vaccine: Aug 04, 2016 Seasonal Allergies Seasonal Allergies: Yes Surgeries HX Surgeries: Yes (thoracotomy) Respiratory Hx Respiratory Disorders: Yes (HOME O2 AT 2L) Respiratory Disorders: Pneumonia, COPD, Emphysema Cardiovascular Hx Cardiac Disorders: Yes (ISCHEMIC CARDIOMYOPATHY) Neurological Hx Neurological Disorders: No Reproductive System Hx Reproductive Disorders: No Sexually Transmitted Disease: No HIV/AIDS: No Female Reproductive Disorders: Denies Genitourinary Hx Genitourinary Disorders: No Gastrointestinal Hx Gastrointestinal Disorders: Yes Gastrointestinal Disorders: Gastroesophageal Reflux, Hemorrhoids, Gall Bladder Disease Musculoskeletal Hx Musculoskeletal Disorders: Yes Musculoskeletal Disorders: Arthritis Endocrine Hx Endocrine Disorders: No HEENT HX ENT Disorders: Yes HEENT Disorders: Cataract Loss of Vision: Denies Hearing Impairment: Hard of Hearing Cancer Hx Cancer: No Psychosocial Hx Psychiatric Problems: Yes Behavioral Health Disorders: Anxiety, PTSD Integumentary HX Skin/Integumentary Disorder: No Blood Transfusions Hx Blood Disorders: No Adverse Reaction to a Blood Tr: No Reviewed Nursing Assessment Reviewed/Agree w Nursing PMH: Yes Family Medical History Family Medial History: Alcoholism SONS Asthma DAUGHTER SONS Cardiovascular disease 19 MOTHER Cataracts 19 MOTHER Deafness or hearing loss G8 SISTER Diabetes mellitus SONS Gastroenteritis SONS Headache disorder SONS Hypertension SONS Myocardial infarction 19 FATHER Psychosocial problem 19 MOTHER No Family History of: AIDS Abdominal aortic aneurysm Joey's disease Alzheimer's disease Aphasia Arthritis Cancer of mouth Colon cancer Completed stroke Congenital disease Congenital heart disease Coronary thrombosis Cystic fibrosis Dementia Drug abuse Dysphasia Fibrocystic disease of breast Glaucoma Hypercholesterolemia Infertility Kidney disease Neoplasm Not obtainable due to adoption Osteoporosis Parkinson's disease Prostate cancer Respiratory disorder Seizure disorder Severe allergy Thyroid disease Tuberculosis Visual disorder Exam Exam Vital Signs Date Time Temp Pulse Resp B/P Pulse Ox O2 Delivery O2 Flow Rate FiO2 01/05/17 06:48 3.00 01/05/17 06:46 93 3.00 01/05/17 04:00 98.4 91 18 109/58 98 Nasal Cannula 2.00 01/05/17 03:15 95 3.00 01/05/17 00:00 97.7 79 18 100/56 98 Nasal Cannula 2.00 01/04/17 20:55 94 Nasal Cannula 3.00 01/04/17 19:24 94 3.00 01/04/17 19:05 98.6 77 18 127/58 97 Nasal Cannula 2.00 01/04/17 16:00 98.8 78 20 106/58 98 Nasal Cannula 2.00 01/04/17 13:45 99.1 01/04/17 13:11 100.2 01/04/17 12:42 92 01/04/17 12:31 92 2.00 01/04/17 12:00 93 Nasal Cannula 2.00 01/04/17 11:55 78 18 98 2 I & O 01/05/17 07:00 Intake Total 1520 ml Output Total 400 ml Balance 1120 ml General Appearance: No Apparent Distress HEENT: Normal ENT Inspection Neck: Supple Respiratory: Decreased Breath Sounds Wheezing Cardiovascular: Regular Rate, Rhythm Systolic Murmur Gallop/S4 Capillary Refill: Less Than 3 Seconds Extremity: Non Tender No Calf Tenderness No Pedal Edema Neurologic/Psychiatric: Alert Oriented x3 Skin: Normal Color Warm/Dry Results Lab Laboratory Tests 01/04/17 07:54 01/05/17 04:30 Assessment/Plan Assessment/Plan [place] pneumonia -Continue levaquin and Merrem for now - pt has multiple medication allergies -Pt will need repeat CT scan in 6-8 wks to ensure resolution. -COPD -SVNs, oxygen Clinical Quality Measures DVT/VTE Risk/Contraindication: Risk Factor Score Per Nursin RFS Level Per Nursing on Admit: 4+=Very High GREGOR JOSEPH DO Jan 05, 2017 07:42
[2017-01-05 08:00] VITALS: BP 125/58
[2017-01-05] MEDS ORDERED: TIOTROPIUM BROMIDE (SPIRIVA) 5'S INHALER IH SCH ×2 (08:00→09:00)
[2017-01-05] MEDS ORDERED: guaiFENesin/DM (ROBITUSSIN DM) 10 ML UDC PO PRN (08:45)
[2017-01-05] MEDS: DIGOXIN 0.125 MG (LANOXIN) TAB PO SCH (08:50)
[2017-01-05] MEDS: LOSARTAN 50 MG (COZAAR) TAB PO SCH ×2 (08:50→20:18)
[2017-01-05] MEDS: FUROSEMIDE 20 MG (LASIX) TAB PO SCH (08:50)
[2017-01-05] MEDS: ACETAMINOPHEN 500 MG TAB (TYLENOL) PO PRN ×2 (08:50→18:16)
[2017-01-05] MEDS: DILTIAZEM 120 MG (CARDIZEM CD) CAP PO SCH (08:51)
[2017-01-05] MEDS: VITAMIN D3 1,000 UNITS (CHOLECALCIFEROL) TABLET PO SCH (08:51)
[2017-01-05] MEDS: ASPIRIN E.C. 81 MG (ECOTRIN) TAB PO SCH (08:51)
[2017-01-05] MEDS: KCL 10 MEQ TAB (MICRO K) PO SCH (08:53)
[2017-01-05] MEDS ORDERED: MAGNESIUM 250 MG PO SCH (09:00)
[2017-01-05] MEDS ORDERED: NON-FORMULARY MEDICATION 1 EA EA (Cholecalciferol (Vitamin D3) (Vitamin D3) 1,000 UNIT) PO SCH (09:00)
[2017-01-05] MEDS ORDERED: CATHETER FLUSH 10 ML SYR IV PRN (10:00)
[2017-01-05] MEDS: NS IV 1000 ML 1,000 ML IV SCH (12:30)
[2017-01-05 16:20] VITALS: BP 104/57
--- NOTE | 2017-01-05 17:55 | Progress Note (SOAP) ---
Subjective Subjective/Events-last exam Fwup Left Upper Lobe Pneumonia, COPD, Hypertension, Anxiety. Feeling little better but would like some guafenesin to help loosen up secretions. Objective Exam Vital Signs Date Time Temp Pulse Resp B/P Pulse Ox O2 Delivery O2 Flow Rate FiO2 01/05/17 16:20 98.8 83 20 104/57 99 Nasal Cannula 3.00 01/05/17 15:06 97 3.00 01/05/17 10:11 93 3.00 01/05/17 08:00 99.8 105 20 125/58 95 Nasal Cannula 2.00 01/05/17 08:00 93 Nasal Cannula 3.00 01/05/17 06:48 3.00 01/05/17 06:46 93 3.00 01/05/17 04:00 98.4 91 18 109/58 98 Nasal Cannula 2.00 01/05/17 03:15 95 3.00 01/05/17 00:00 97.7 79 18 100/56 98 Nasal Cannula 2.00 01/04/17 20:55 94 Nasal Cannula 3.00 01/04/17 19:24 94 3.00 01/04/17 19:05 98.6 77 18 127/58 97 Nasal Cannula 2.00 I & O 01/05/17 07:00 Intake Total 1520 ml Output Total 400 ml Balance 1120 ml Capillary Refill : Less Than 3 Seconds General Appearance: No Apparent Distress Neck: Supple Respiratory: Decreased Breath Sounds Wheezing Cardiovascular: Regular Rate, Rhythm Systolic Murmur Gastrointestinal: normal bowel sounds non tender soft Extremity: Non Tender No Calf Tenderness No Pedal Edema Neurologic/Psychiatric: Alert Oriented x3 Results Lab Laboratory Tests 01/05/17 04:30: Alanine Aminotransferase (ALT/SGPT) 15, Albumin 3.2, Alkaline Phosphatase 55, Anion Gap 11, Aspartate Amino Transf (AST/SGOT) 19, BUN/Creatinine Ratio 17, Basophils # (Auto) 0.0, Basophils (%) (Auto) 0, Blood Urea Nitrogen 17, Calcium Level 9.1, Carbon Dioxide Level 23, Chloride Level 103, Creatinine 1.03, Eosinophils # (Auto) 0.2, Eosinophils (%) (Auto) 2, Estimat Glomerular Filtration Rate 52, Glucose Level 78, Hematocrit 32L, Hemoglobin 10.5L, Lymphocytes # (Auto) 1.0, Lymphocytes (%) (Auto) 10L, Mean Corpuscular Hemoglobin 31, Mean Corpuscular Hemoglobin Concent 33, Mean Corpuscular Volume 95, Mean Platelet Volume 8.8, Monocytes # (Auto) 1.3H, Monocytes (%) (Auto) 13H , Neutrophils # (Auto) 7.3, Neutrophils (%) (Auto) 75, Platelet Count 278, Potassium Level 4.2, Red Blood Count 3.36L, Red Cell Distribution Width 12.5, Sodium Level 137, Total Bilirubin 0.5, Total Protein 6.0L, White Blood Count 9.7 Microbiology 01/04/17 Blood Culture - Preliminary, Resulted No growth Assessment/Plan Assessment/Plan Assess & Plan/Chief Complaint 1. Left Upper Lobe Pneumonia--continue Levaquin and Meropenem 2. COPD--continue SVNS and home inhalers restarted 3. Hypertension--home meds restarted 4. Anxiety--home meds restarted Diagnosis/Problems: Clinical Quality Measures DVT/VTE Risk/Contraindication: Risk Factor Score Per Nursin RFS Level Per Nursing on Admit: 4+=Very High MELODY MCGEE DO Jan 05, 2017 5:55 pm
[2017-01-05] MEDS: FAMOTIDINE 20 MG (PEPCID) TABLET PO SCH (20:18)
[2017-01-05] MEDS: MIRTAZAPINE 15 MG (REMERON) TAB PO SCH (20:18)
[2017-01-05] MEDS: hydrOXYzine (ATARAX) 10 MG TAB PO SCH (20:18)
[2017-01-05] MEDS: ATORVASTATIN 20 MG (LIPITOR) TABLET PO SCH (20:18)
[2017-01-06] VITALS: BP 102/51
[2017-01-06] MEDS: NS IV 1000 ML 1,000 ML IV SCH (05:05)
[2017-01-06] MEDS: MEROPENEM 500 MG/NS 100 ML IVPB IV SCH ×6 (06:07→22:17)
[2017-01-06] MEDS: RT-ALBUTEROL SULF 2.5 MG/3 ML PRE-MIX VIAL INH SCH ×4 (06:36→18:17)
[2017-01-06] MEDS: RT-ADVAIR HFA 115/21 MCG PER PUFF IH SCH ×2 (06:41→18:17)
[2017-01-06] MEDS: UMECLIDINIUM BROMIDE (INCRUSE ELLIPTA) 7'S IH SCH (06:41)
[2017-01-06 08:08] VITALS: BP 141/62
[2017-01-06] MEDS: MAGNESIUM OXIDE (MAG-OX)400 MG TAB PO SCH (08:10)
[2017-01-06] MEDS: DIGOXIN 0.125 MG (LANOXIN) TAB PO SCH (08:10)
[2017-01-06] MEDS: ACETAMINOPHEN 500 MG TAB (TYLENOL) PO PRN ×2 (08:10→18:58)
[2017-01-06] MEDS: VITAMIN D3 1,000 UNITS (CHOLECALCIFEROL) TABLET PO SCH (08:10)
[2017-01-06] MEDS: ASPIRIN E.C. 81 MG (ECOTRIN) TAB PO SCH (08:10)
[2017-01-06] MEDS: DILTIAZEM 120 MG (CARDIZEM CD) CAP PO SCH (08:11)
[2017-01-06] MEDS: LOSARTAN 50 MG (COZAAR) TAB PO SCH ×2 (08:15→20:00)
--- NOTE | 2017-01-06 09:38 | Pulmonary Progress Note ---
Subjective Subjective/Events-last exam No complications noted currently. Exam Exam Vital Signs Date Time Temp Pulse Resp B/P Pulse Ox O2 Delivery O2 Flow Rate FiO2 01/06/17 08:08 97.3 76 20 141/62 97 Nasal Cannula 3.00 01/06/17 06:45 3.00 01/06/17 06:42 3.00 01/06/17 06:38 94 3.00 01/06/17 00:00 98.3 76 18 102/51 98 Nasal Cannula 3.00 01/05/17 20:15 Nasal Cannula 3.00 01/05/17 19:27 94 3.00 01/05/17 16:20 98.8 83 20 104/57 99 Nasal Cannula 3.00 01/05/17 15:06 97 3.00 01/05/17 10:11 93 3.00 I & O 01/06/17 07:00 Intake Total 2745 ml Output Total 2250 ml Balance 495 ml General Appearance: No Apparent Distress HEENT: Normal ENT Inspection Neck: Supple Respiratory: Decreased Breath Sounds Wheezing Cardiovascular: Regular Rate, Rhythm Systolic Murmur Capillary Refill: Less Than 3 Seconds Gastrointestinal: normal bowel sounds non tender soft Extremity: Non Tender No Calf Tenderness No Pedal Edema Neurologic/Psychiatric: Alert Oriented x3 Skin: Normal Color Warm/Dry Results Lab Laboratory Tests 01/05/17 04:30 Assessment/Plan Assessment/Plan [place] pneumonia -Continue levaquin and Merrem for now - pt has multiple medication allergies -Pt will need repeat CT scan in 6-8 wks to ensure resolution. -COPD -SVNs, oxygen Clinical Quality Measures DVT/VTE Risk/Contraindication: Risk Factor Score Per Nursin RFS Level Per Nursing on Admit: 4+=Very High GREGOR JOSEPH DO Jan 06, 2017 09:38
[2017-01-06] MEDS: LEVOFLOXACIN 750 MG TAB (LEVAQUIN) PO SCH (11:44)
[2017-01-06] MEDS ORDERED: BENZONATATE 100 MG (TESSALON) CAPSULE PO PRN (13:15)
[2017-01-06 16:00] VITALS: BP 134/65
--- NOTE | 2017-01-06 17:24 | Progress Note (SOAP) ---
Subjective Subjective/Events-last exam Fwup Left Upper Lobe Pneumonia, COPD, Hypertension, Anxiety. C/O coughing episodes. Objective Exam Vital Signs Date Time Temp Pulse Resp B/P Pulse Ox O2 Delivery O2 Flow Rate FiO2 01/06/17 16:00 97.7 75 22 134/65 97 Nasal Cannula 3.00 01/06/17 14:16 98 3.00 01/06/17 10:29 92 3.00 01/06/17 08:08 97.3 76 20 141/62 97 Nasal Cannula 3.00 01/06/17 08:00 92 Nasal Cannula 3.00 01/06/17 06:45 3.00 01/06/17 06:42 3.00 01/06/17 06:38 94 3.00 01/06/17 00:00 98.3 76 18 102/51 98 Nasal Cannula 3.00 01/05/17 20:15 Nasal Cannula 3.00 01/05/17 19:27 94 3.00 I & O 01/06/17 07:00 Intake Total 2745 ml Output Total 2250 ml Balance 495 ml Capillary Refill : Less Than 3 Seconds General Appearance: Mild Distress (due to recent coughing episode) Respiratory: Lungs Clear Decreased Breath Sounds Cardiovascular: Regular Rate, Rhythm Systolic Murmur Gastrointestinal: normal bowel sounds non tender soft Neurologic/Psychiatric: Alert Oriented x3 Results Lab Microbiology 01/04/17 Blood Culture - Preliminary, Resulted No growth Assessment/Plan Assessment/Plan Assess & Plan/Chief Complaint 1. Left Upper Lobe Pneumonia--continue Levaquin and Meropenem, add tessalon for cough 2. COPD--continue SVNS and home inhalers restarted 3. Hypertension--home meds restarted 4. Anxiety--home meds restarted Diagnosis/Problems: Clinical Quality Measures DVT/VTE Risk/Contraindication: Risk Factor Score Per Nursin RFS Level Per Nursing on Admit: 4+=Very High MELODY MCGEE DO Jan 06, 2017 17:24
[2017-01-06] MEDS: ATORVASTATIN 20 MG (LIPITOR) TABLET PO SCH (20:00)
[2017-01-06] MEDS: FAMOTIDINE 20 MG (PEPCID) TABLET PO SCH (20:00)
[2017-01-06] MEDS: MIRTAZAPINE 15 MG (REMERON) TAB PO SCH (20:00)
[2017-01-06] MEDS: hydrOXYzine (ATARAX) 10 MG TAB PO SCH (20:00)
[2017-01-06] MEDS: RT-ALBUTEROL SULF 2.5 MG/3 ML PRE-MIX VIAL INH PRN (22:55)
[2017-01-07] VITALS: BP 123/60
[2017-01-07] MEDS: ACETAMINOPHEN 500 MG TAB (TYLENOL) PO PRN ×3 (05:32→21:04)
[2017-01-07] MEDS: NS IV 1000 ML 1,000 ML IV SCH (05:33)
[2017-01-07] MEDS: MEROPENEM 500 MG/NS 100 ML IVPB IV SCH ×6 (06:07→22:47)
[2017-01-07] MEDS: RT-ALBUTEROL SULF 2.5 MG/3 ML PRE-MIX VIAL INH SCH ×4 (06:26→20:30)
[2017-01-07] MEDS: RT-ADVAIR HFA 115/21 MCG PER PUFF IH SCH ×2 (06:31→20:30)
[2017-01-07] MEDS: UMECLIDINIUM BROMIDE (INCRUSE ELLIPTA) 7'S IH SCH (06:32)
[2017-01-07 08:00] VITALS: BP 137/62
[2017-01-07] MEDS: MAGNESIUM OXIDE (MAG-OX)400 MG TAB PO SCH (08:39)
[2017-01-07] MEDS: KCL 10 MEQ TAB (MICRO K) PO SCH (08:39)
[2017-01-07] MEDS: FUROSEMIDE 20 MG (LASIX) TAB PO SCH (08:40)
[2017-01-07] MEDS: LOSARTAN 50 MG (COZAAR) TAB PO SCH ×2 (08:40→20:28)
[2017-01-07] MEDS: DIGOXIN 0.125 MG (LANOXIN) TAB PO SCH (08:40)
[2017-01-07] MEDS: VITAMIN D3 1,000 UNITS (CHOLECALCIFEROL) TABLET PO SCH (08:40)
[2017-01-07] MEDS: DILTIAZEM 120 MG (CARDIZEM CD) CAP PO SCH (08:40)
[2017-01-07] MEDS: ASPIRIN E.C. 81 MG (ECOTRIN) TAB PO SCH (08:41)
--- NOTE | 2017-01-07 12:24 | Diagnostic Imaging Report ---
EXAMINATION: PA and lateral views of the chest. INDICATION: Followup pneumonia. FINDINGS: There is a left upper lobe infiltrate in and around the pre-existing cavity as demonstrated on CT of 01/04/17. It is not significantly changed from 01/04 chest x-ray. The right lung demonstrates minimal atelectasis in the base and mild suprahilar scarring. The heart size is at the upper limits of normal. There is a small effusion on the left side. There is no pneumothorax. Post generator projecting over the lower thorax seen. IMPRESSION: Stable left upper lobe infiltrate at site of pre-existing cavity similar to prior exam. As stated on recent CT scan report, a CT chest followup in 6 weeks is recommended to ensure surrounding consolidation and apparent soft tissue thickening. Dictated by: Dictated on workstation # [id number]
--- NOTE | 2017-01-07 12:32 | Progress Note (SOAP) ---
Subjective Subjective/Events-last exam Fwup Left Upper Lobe Pneumonia, COPD, Hypertension, Anxiety. Cough not as bad but still with low grade fevers and complains of heartburn. Objective Exam Vital Signs Date Time Temp Pulse Resp B/P Pulse Ox O2 Delivery O2 Flow Rate FiO2 01/07/17 10:17 94 2.00 01/07/17 08:00 97.2 86 20 137/62 97 Nasal Cannula 3.00 01/07/17 07:58 Nasal Cannula 3.00 01/07/17 06:36 98 3.00 01/07/17 06:32 98 3.00 01/07/17 06:26 86 2.00 01/07/17 00:00 98.2 84 18 123/60 96 Nasal Cannula 3.00 01/06/17 22:55 94 2.00 01/06/17 20:00 Nasal Cannula 3.00 01/06/17 18:22 99 2.00 01/06/17 18:17 96 2.00 01/06/17 16:00 97.7 75 22 134/65 97 Nasal Cannula 3.00 01/06/17 14:16 98 3.00 I & O 01/07/17 07:00 Intake Total 3375 ml Output Total 2350 ml Balance 1025 ml Capillary Refill : Less Than 3 Seconds General Appearance: No Apparent Distress Neck: Supple Respiratory: Lungs Clear Decreased Breath Sounds Cardiovascular: Regular Rate, Rhythm Systolic Murmur Gastrointestinal: normal bowel sounds non tender soft Neurologic/Psychiatric: Alert Oriented x3 Results Lab Microbiology 01/04/17 Blood Culture - Preliminary, Resulted No growth Assessment/Plan Assessment/Plan Assess & Plan/Chief Complaint 1. Left Upper Lobe Pneumonia--continue Levaquin and Meropenem, and tessalon for cough, repeat CXR 2. COPD--continue SVNS and home inhalers restarted 3. Hypertension--home meds restarted 4. Anxiety--home meds restarted 5. GERD--patient requests pepcid be changed to before dinner Diagnosis/Problems: Clinical Quality Measures DVT/VTE Risk/Contraindication: Risk Factor Score Per Nursin RFS Level Per Nursing on Admit: 4+=Very High MELODY MCGEE DO Jan 07, 2017 12:32
[2017-01-07] MEDS ORDERED: FAMOTIDINE 20 MG (PEPCID) TABLET PO SCH (16:00)
[2017-01-07 16:11] VITALS: BP 128/68
[2017-01-07] MEDS: hydrOXYzine (ATARAX) 10 MG TAB PO SCH (20:28)
[2017-01-07] MEDS: ATORVASTATIN 20 MG (LIPITOR) TABLET PO SCH (20:28)
[2017-01-07] MEDS: MIRTAZAPINE 15 MG (REMERON) TAB PO SCH (20:29)
[2017-01-08] VITALS: BP 107/53
[2017-01-08] MEDS: MEROPENEM 500 MG/NS 100 ML IVPB IV SCH ×2 (05:57)
[2017-01-08] MEDS: ACETAMINOPHEN 500 MG TAB (TYLENOL) PO PRN (07:34)
[2017-01-08] MEDS: RT-ALBUTEROL SULF 2.5 MG/3 ML PRE-MIX VIAL INH SCH ×2 (07:34→11:15)
[2017-01-08] MEDS: RT-ADVAIR HFA 115/21 MCG PER PUFF IH SCH (07:34)
[2017-01-08] MEDS: MAGNESIUM OXIDE (MAG-OX)400 MG TAB PO SCH (07:34)
[2017-01-08] MEDS: UMECLIDINIUM BROMIDE (INCRUSE ELLIPTA) 7'S IH SCH (07:41)
[2017-01-08 08:00] VITALS: BP 173/73
[2017-01-08] MEDS: DIGOXIN 0.125 MG (LANOXIN) TAB PO SCH (08:19)
[2017-01-08] MEDS: DILTIAZEM 120 MG (CARDIZEM CD) CAP PO SCH (08:20)
[2017-01-08] MEDS: VITAMIN D3 1,000 UNITS (CHOLECALCIFEROL) TABLET PO SCH (08:20)
[2017-01-08] MEDS: LOSARTAN 50 MG (COZAAR) TAB PO SCH (08:20)
[2017-01-08] MEDS: ASPIRIN E.C. 81 MG (ECOTRIN) TAB PO SCH (08:20)
--- NOTE | 2017-01-08 08:34 | Pulmonary Progress Note ---
Subjective Subjective/Events-last exam No complications noted currently Exam Exam Vital Signs Date Time Temp Pulse Resp B/P Pulse Ox O2 Delivery O2 Flow Rate FiO2 01/08/17 07:41 98 3.00 01/08/17 07:41 98 3.00 01/08/17 07:34 89 2.00 01/08/17 00:00 98.2 80 18 107/53 96 Nasal Cannula 2.00 01/08/17 00:00 98.2 80 18 107/53 96 Nasal Cannula 2.00 01/07/17 20:34 98 3.00 01/07/17 20:31 93 2.00 01/07/17 20:30 98 Nasal Cannula 2.00 01/07/17 16:11 97.9 80 16 128/68 98 01/07/17 15:35 95 2.00 01/07/17 10:17 94 2.00 I & O 01/08/17 07:00 Intake Total 3250 ml Output Total 2650 ml Balance 600 ml General Appearance: No Apparent Distress HEENT: Normal ENT Inspection Neck: Supple Respiratory: Lungs Clear, Decreased Breath Sounds Cardiovascular: Regular Rate, Rhythm, Systolic Murmur Capillary Refill: Less Than 3 Seconds Gastrointestinal: normal bowel sounds, non tender, soft Extremity: Non Tender, No Calf Tenderness, No Pedal Edema Neurologic/Psychiatric: Alert, Oriented x3 Skin: Normal Color, Warm/Dry Assessment/Plan Assessment/Plan [place] pneumonia -Continue levaquin and Merrem for now - pt has multiple medication allergies -Pt will need repeat CT scan in 6-8 wks to ensure resolution. -COPD -SVNs, oxygen Will have pt f/u with me as out patient. Clinical Quality Measures DVT/VTE Risk/Contraindication: Risk Factor Score Per Nursin RFS Level Per Nursing on Admit: 4+=Very High GREGOR JOSEPH DO Jan 08, 2017 08:34
[2017-01-08] MEDS: LEVOFLOXACIN 750 MG TAB (LEVAQUIN) PO SCH (11:11)
[2017-01-08] MEDS: NS IV 1000 ML 1,000 ML IV SCH (11:29)
[2017-01-08 11:50] VITALS: BP 135/61
[2017-01-08] MEDS ORDERED: FUROSEMIDE 40 MG (LASIX) TAB PO ONE (12:00)
[2017-01-08] MEDS ORDERED: KCL 20 MEQ TAB (K-DUR) PO ONE (12:00)
--- NOTE | 2017-01-08 12:53 | Discharge Summary ---
Diagnosis/Chief Complaint Date of Admission Jan 04, 2017 at 11:15 Date of Discharge Jan 08, 2017 at 12:33 Discharge Date: Jan 08, 2017 Admission Diagnosis Admission Diagnosis 1. Left Upper Lobe Pneumonia--admit and start Levaquin/Meropenem 2. COPD--resume home inhalers, SVNs with albuterol and home oxygen 3. Hypertension--resume home meds 4. History of CAD--stable Discharge Diagnosis 1. Left Upper Lobe Pneumonia--to SWING bed to continue Levaquin/Meropenem 2. COPD--continue home inhalers, SVNs with albuterol and home oxygen 3. Hypertension--continue home meds 4. History of CAD--stable Reason Hospital Visit This is a 76 year old female with a known history of COPD who presented to the emergency room with a 3 days history of worsening chest tightness and fever and chills. She was found to have a left sided pneumonia and it was decided to admit her for IV antibiotics. Discharge Summary Hospital Course Hospital Course This is a 76 year old female with a known history of COPD who presented to the emergency room with a 3 days history of worsening chest tightness and fever and chills. She was found to have a left sided pneumonia and it was decided to admit her for IV antibiotics. She was placed on Levaquin and Meropenem. Her initial WBC count was 12.9 and was down to 9.7 after 1 day of IV antibiotics. She was continued on oxygen and SVNs with albuterol/ipratroprium and resumed on her home inhalers. Dr. King was consulted as the pneumonia was around a previous scar from previous empyema. She did have coughing spasm episodes the first 2 days but these improved after tessalon perles. It was decided to due to her pneumonia presentation as well as numerous allergies that she would need longer IV antibiotics so a SWING bed evaluation was obtained. She did qualify for SWING bed and was transferred on 01/08/17. Procedures None. Consultations Dr. King Discharge Physical Examination Allergies: Coded Allergies: diphenhydramine HCl (Unverified Allergy, Severe, anaphalaxis, 09/10/14) Pt states this happened several yrs ago and that she had almost forgotten about it because she has avoided t for so long. fentanyl (Unverified Allergy, Mild, 09/10/14) PT DOES NOT WANT TO TAKE--SHE STAES IT MADE HER COPD WORSE midazolam (Unverified Allergy, Mild, PT TAKE LIBRIUM AT HOME, 09/10/14) PT DOESN'T WANT TO TAKE--SHE STATED IT MADE HER COPD OWRSE. Beta-Blockers (Beta-Adrenergic Bloc (Verified Allergy, Unknown, 09/10/14) Cephalosporins (Verified Allergy, Unknown, HAS RECEIVED CEFEPIME IN PAST W /O PROBLEM, 09/14/14) Penicillins (Verified Allergy, Unknown, HAS REC AZACTAM IN PAST WITHOUT PROBLEMS, 09/10/14) risedronic acid (Verified Allergy, Unknown, 09/10/14) prednisone (Unverified Adverse Reaction, Intermediate, Large doses cause SOA, 09/10/14) meperidine (Unverified Adverse Reaction, Mild, NAUSEA, 09/10/14) propofol (Unverified Adverse Reaction, Mild, 09/10/14) PT DOES NOT WANT TO TAKE--SHE STATES IT MADE HER COPD WORSE erythromycin base (Verified Adverse Reaction, Unknown, MAKES PATIENT NAUSEADED, 09/10/14) Vitals & I&Os Vital Signs Date Time Temp Pulse Resp B/P Pulse Ox O2 Delivery O2 Flow Rate FiO2 01/08/17 11:50 98.0 75 22 135/61 97 Nasal Cannula 2.00 General Appearance: Alert, Oriented X3, Cooperative Respiratory: Clear to Auscultation Cardiovascular: Regular Rate Abdominal: Normal Bowel Sounds, Soft, No Tenderness Psych/Mental Status: Mental Status NL, Mood NL Discharge Home Medications Reviewed and agree with Discharge Medication list on patient's Discharge Instruction sheet Instructions to Patient/Family Please see electonic discharge instructions given to patient. Clinical Quality Measures DVT/VTE Risk/Contraindication: Risk Factor Score Per Nursin RFS Level Per Nursing on Admit: 4+=Very High MELODY MCGEE DO Jan 08, 2017 12:53
[2017-01-08] MEDS ORDERED: RT-ADVAIR HFA 115/21 MCG PER PUFF IH ONE (18:33)
[2017-01-08] MEDS ORDERED: RT-ALBUTEROL SULF 2.5 MG/3 ML PRE-MIX VIAL ONE (18:33)
[2017-01-09] MEDS ORDERED: RT-ALBUTEROL SULF 2.5 MG/3 ML PRE-MIX VIAL ONE (06:34)
[2017-01-09] MEDS ORDERED: RT-ADVAIR HFA 115/21 MCG PER PUFF IH ONE (06:34)
[2017-01-11] MEDS ORDERED: LEVO750T39 PO (08:45)
[2017-01-14] MEDS ORDERED: FAMOTIDINE 20MG/2ML IV (PEPCID) ONE (09:59)
== END 2017-01-08 12:33 | disposition swing bed (61) | DRG 190 ==
LOC: EDUNIT# 07:25 → ER 07:30 → 4TH 11:15
PROVIDERS: ADMIT Family Medicine; ATTEND Family Medicine
DX: J44.0 Chronic obstructive pulmonary disease with (acute) lower respiratory infection (principal); J18.9 Pneumonia, unspecified organism; I25.5 Ischemic cardiomyopathy; I10 Essential (primary) hypertension; K21.9 Gastro-esophageal reflux disease without esophagitis; M19.91 Primary osteoarthritis, unspecified site; F41.9 Anxiety disorder, unspecified; F43.10 Post-traumatic stress disorder, unspecified; Z87.891 Personal history of nicotine dependence; Z99.81 Dependence on supplemental oxygen
CPT/HCPCS: 36415; 71020; 71250; 80053; 83605; 84484; 85025; 85610; 85730; 87040; 93005; 94640; 94760; 96374

== ENCOUNTER 2017-01-08 11:39 | Inpatient (IN) | payer MEDICARE ==
[~2017-01-08] VITALS: Ht 152.4 cm; Wt 47.8 kg
[~2017-01-08 11:39] MED LIST changes: +CHOL10007 PO; +DIGO125T18 PO; +DILT120C53 PO; +HYDR-3584 PO; +LOSA50TA36 PO; +MAGN250T PO; +MIRT30TA6 PO; +POTA10TA10 PO; +SIMV40TA4 PO; +TIOT18CA2 IH
[2017-01-08] MEDS ORDERED: PATIENT MAY USE OWN MEDS, ALL MC SCH (12:45)
[2017-01-08] MEDS ORDERED: KCL 20 MEQ TAB (K-DUR) PO NR (12:45)
[2017-01-08] MEDS ORDERED: FUROSEMIDE 20 MG (LASIX) TAB PO SCH (12:45)
[2017-01-08] MEDS ORDERED: KCL 10 MEQ TAB (MICRO K) PO SCH (12:45)
[2017-01-08] MEDS ORDERED: SENNA W/DOCUSATE (SENOKOT S) TABLET PO PRN (12:45)
[2017-01-08] MEDS ORDERED: MEROPENEM 500 MG in NS (IVPB) 100 ML IV SCH (12:45)
[2017-01-08] MEDS ORDERED: CATHETER FLUSH 10 ML SYR IV PRN (12:45)
[2017-01-08] MEDS ORDERED: BENZONATATE 100 MG (TESSALON) CAPSULE PO PRN (12:45)
[2017-01-08] MEDS ORDERED: RT-ALBUTEROL SULF 2.5 MG/3 ML PRE-MIX VIAL INH PRN (13:45)
[2017-01-08] MEDS: FUROSEMIDE 40 MG (LASIX) TAB PO NR (14:27)
[2017-01-08] MEDS: ACETAMINOPHEN 500 MG TAB (TYLENOL) PO PRN ×2 (14:28→22:27)
[2017-01-08] MEDS: RT-ALBUTEROL SULF 2.5 MG/3 ML PRE-MIX VIAL INH SCH ×2 (14:31→18:42)
[2017-01-08] MEDS: FAMOTIDINE 20 MG (PEPCID) TABLET PO SCH (15:35)
[2017-01-08] MEDS: MEROPENEM 500 MG in NS (IVPB) 100 ML IV SCH ×2 (15:35→22:28)
--- NOTE | 2017-01-08 16:06 | Physical Therapy Evaluation ---
PT Evaluation-General Medical Diagnosis Admission Date Jan 08, 2017 at 12:33 Medical Diagnosis: pneumonia, COPD, debility Onset Date: Jan 04, 2017 Therapy Diagnosis Therapy Diagnosis: impaired mobility, endurance Height/Weight Height (Feet): 5 Height (Inches): 0.00 Weight (Pounds): 107 Weight (Ounces): 9.0 Referral Physician: Ruthie Paz DO Reason for Referral: Evaluation/Treatment Medical History Pertinent Medical History: Arthritis, GERD Additional Medical History former smoker, home O2 at 2L nasal canula, ischemic cardiomyopathy, hemorrhoids , gall bladder disease, cataracts, HOONAH, anxiety, PTSD, surg (thoracotomy) Current History went to ER with 3 days worsening chest tightness, fever, chills, -> left pneumonia Reviewed History: Yes Social History Home: Single Level Current Living Status: Alone Entry Into Home: Stairs With Railing PT Steps Into Home: 5 Prior/Core FIM Prior Level of Function Functional Brillion Measure 0=Not Assessed/NA 4=Minimal Assistance 1=Total Assistance 5=Supervision or Setup 2=Maximal Assistance 6=Modified Brillion 3=Moderate Assistance 7=Complete Brillion Bed Mobility: 7 Transfers (B,C,W/C) (FIM): 7 Gait: 7 PT Evaluation-Current Subjective Patient sitting in chair pre tx, agrees to PT, pleasant and cooperative. No complaints of pain, but she does say she has been having pretty much a constant headache. Pt/Family Goals finish her antibiotics and be independent at home Objective Patient Orientation: Normal For Age Attachments: Oxygen, IV 2L of O2 nasal canula ROM/Strength ROM Lower Extremities WNL Strenght Lower Extremities 4/5 gross bilateral lower extremities Neuromuscular (Tone, Coordination, Reflexes) WNL Sensory Vision: Functional Hearing: Functional Sensation Right Lower Extremit: Intact Sensation Left Lower Extremity: Intact Transfers Functional Brillion Measure 0=Not Assessed/NA 4=Minimal Assistance 1=Total Assistance 5=Supervision or Setup 2=Maximal Assistance 6=Modified Brillion 3=Moderate Assistance 7=Complete Brillion Transfers (B, C, W/C) (FIM): 5 Sit to/from Stand: 5 Sit to Stand (QC): 4 Gait Does the Patient Walk?: Yes Mode of Locomotion: Walk Anticipated Mode of Locomotion: Walk Gait (FIM): 4 Distance: 250' Walk 50 ft with 2 Turns(QC): 4 Walk 150 ft (QC): 4 Gait Level of Assist: 4 Gait Persons Needed: 1 Gait Assistive Device: None Comments/Gait Description Patient ambulates without an assistive device for 250' with CGA (including 10' over uneven surfaces like carpet and 50' with at least 2 turns of 90 degrees), she did have one moment of unsteadiness but was able to recover without assist Balance Sitting Static: Normal Sitting Dynamic: Normal Standing Static: Fair Standing Dynamic: Fair Treatment seated bilateral lower extremity exercises x 20 (AP, LAQ, hip flexion) Assessment/Needs Patient has impaired mobility, endurance, and possible slight balance impairments Rehab Potential: Fair PT Snf Goals Snf Goals PT Snf Goals Time Frame: Jan 15, 2017 Transfers (B,C,W/C) (FIM): 6 Sit to Lying (QC): 6 Lying-Sitting on Side/Bed(QC): 6 Sit to Stand (QC): 6 Rollin Chair/Mgw-bf-Zejvr Xfer(QC): 6 Gait (FIM): 5 Distance: 300' Walk 50ft with 2 Turns (QC): 4 Walk 150 ft (QC): 4 Gait Level of Assist: 5 Gait Assistive Device: None Stairs (FIM): 2 # of Steps: 4 Stairs Level Of Assist: 5 PT Plan Problem List Problem List: Activity Tolerance, Functional Strength, Safety, Balance, Gait, Transfer, Bed Mobility Treatment/Plan Treatment Plan: Continue Plan of Care Treatment Plan: Bed Mobility, Education, Functional Activity [place], Functional Strength, Gait, Safety, Therapeutic Exercise, Transfers Treatment Duration: Jan 15, 2017 # of days/week 5-6 Visits Per Week: 5-6 Minutes/Day (M-F): 15-30 Minutes/Day (Sat/Valdiv[place]): 15-30 Pt/Family Agrees w/Plan: Yes Safety Risks/Education Patient Education: Gait Training, Transfer Techniques, Correct Positioning, Safety Issues Teaching Recipient: Patient Teaching Methods: Demonstration, Discussion Response to Teaching: Reinforcement Needed Discharge Recommendations Plan Patient will perform bed mobility and transfer training, balance and endurance training, functional strengthening, stair training, gait training, education, to improve functional mobility and independence at home. Therapy D/C Recommendations: Home w/ Family Support Time/GCodes Time In: 1540 Time Out: 1610 Total Billed Treatment Time: 30 Total Billed Treatment 1 visit EVL 15 min GT 15 min FLY SAAB PT Jan 08, 2017 16:06
[2017-01-08 18:00] VITALS: BP 135/70
[2017-01-08] MEDS: RT-ADVAIR HFA 115/21 MCG PER PUFF IH SCH (18:43)
[2017-01-08] MEDS: hydrOXYzine (ATARAX) 10 MG TAB PO SCH (20:10)
[2017-01-08] MEDS: LOSARTAN 50 MG (COZAAR) TAB PO SCH (20:10)
[2017-01-08] MEDS: ATORVASTATIN 20 MG (LIPITOR) TABLET PO SCH (20:10)
[2017-01-08] MEDS: MIRTAZAPINE 15 MG (REMERON) TAB PO SCH (20:10)
[2017-01-09 06:00] VITALS: BP 127/61
[2017-01-09] MEDS: MEROPENEM 500 MG in NS (IVPB) 100 ML IV SCH ×3 (06:19→23:03)
[2017-01-09] MEDS: ACETAMINOPHEN 500 MG TAB (TYLENOL) PO PRN ×2 (06:20→12:18)
[2017-01-09] MEDS: RT-ALBUTEROL SULF 2.5 MG/3 ML PRE-MIX VIAL INH SCH ×4 (07:05→19:03)
[2017-01-09] MEDS: RT-ADVAIR HFA 115/21 MCG PER PUFF IH SCH ×2 (07:05→19:03)
[2017-01-09] MEDS: UMECLIDINIUM BROMIDE (INCRUSE ELLIPTA) 7'S IH SCH (07:05)
[2017-01-09] MEDS: LOSARTAN 50 MG (COZAAR) TAB PO SCH ×2 (09:30→20:42)
[2017-01-09] MEDS: VITAMIN D3 1,000 UNITS (CHOLECALCIFEROL) TABLET PO SCH (09:30)
[2017-01-09] MEDS: ASPIRIN E.C. 81 MG (ECOTRIN) TAB PO SCH (09:30)
[2017-01-09] MEDS: DIGOXIN 0.125 MG (LANOXIN) TAB PO SCH (09:31)
[2017-01-09] MEDS: FUROSEMIDE 20 MG (LASIX) TAB PO SCH (09:31)
[2017-01-09] MEDS: DILTIAZEM 120 MG (CARDIZEM CD) CAP PO SCH (09:31)
[2017-01-09] MEDS: KCL 10 MEQ TAB (MICRO K) PO SCH (09:31)
[2017-01-09] MEDS: MAGNESIUM OXIDE (MAG-OX)400 MG TAB PO SCH (09:32)
--- NOTE | 2017-01-09 11:15 | Physical Therapy Daily Note ---
PT Daily Note-Current Subjective Patient in chair pre tx, agrees to PT, states she is ready because she just had a breathing treatment. Patient has no complaints of pain. Appearance Patient in chair post tx, has nurse call. Mental Status Patient Orientation: Normal For Age Attachments: Oxygen Transfers Functional Amor[place] Measure 0=Not Assessed/NA 4=Minimal Assistance 1=Total Assistance 5=Supervision or Setup 2=Maximal Assistance 6=Modified [place] 3=Moderate Assistance 7=Complete IndependenceIRFPAI Quality Coding Scale 6 Independent with activity with or without an assistive device 5 Patient requires set up or clean up by helper. Patient completes activity by themselves 4 Supervision or touching assist (CGA). [place] provide cues , steadying assist 3 The helper provides less than half the effort to complete the activity 2 The helper provides more than half the effort to complete the activity 1 Dependent. The helper does all the effort to complete an activity 7 Patient refused to complete or attempt activity 9 The patient did not perform the activity before the current illness or injury 88 Not attempted due to Medical conditions or safety concerns Transfers (B, C, W/C) (FIM): 6 Sit to/from Stand: 6 no LOB or unsteadiness Gait Training Gait (FIM): 6 Distance: 800' Gait Assistive Device: None Patient used the wall railing when available, no LOB or unsteadiness even when not using the railing, occasional standing rest break to catch her breath, cues for breathing Assessment Current Status: Fair Progress improving endurance PT Sulfonation Equipment Operator Goals Residential Goals PT Sulfonation Equipment Operator Goals Time Frame: Jan 15, 2017 Transfers (B,C,W/C) (FIM): 6 Sit to Lying (QC): 6 Lying-Sitting on Side/Bed(QC): 6 Sit to Stand (QC): 6 Rollin Chair/Lum-xk-Ubusp Xfer(QC): 6 Gait (FIM): 5 Distance: 300' Walk 50ft with 2 Turns (QC): 4 Walk 150 ft (QC): 4 Gait Level of Assist: 5 Gait Assistive Device: None Stairs (FIM): 2 # of Steps: 4 Stairs Level Of Assist: 5 PT Plan Problem List Problem List: Activity Tolerance, Functional Strength, Safety, Balance, Gait, Transfer Treatment/Plan Treatment Plan: Continue Plan of Care Treatment Plan: Bed Mobility, Education, Functional Activity [place], Functional Strength, Gait, Safety, Therapeutic Exercise, Transfers Treatment Duration: Jan 15, 2017 Visits Per Week: 5-6 Minutes/Day (M-F): 15-30 Minutes/Day (Sat/Valdivia): 15-30 Safety Risks/Education Patient Education: Gait Training, Transfer Techniques, Safety Issues Teaching Recipient: Patient Teaching Methods: Demonstration, Discussion Response to Teaching: Reinforcement Needed Time/GCodes Time In: 1100 Time Out: 1115 Total Billed Treatment Time: 15 Total Billed Treatment 1 visit GT 15 min FLY SAAB PT Jan 09, 2017 11:15
[2017-01-09] MEDS: FUROSEMIDE 40 MG (LASIX) TAB PO NR (12:21)
[2017-01-09] MEDS: FAMOTIDINE 20 MG (PEPCID) TABLET PO SCH (15:59)
[2017-01-09 18:00] VITALS: BP 111/65
[2017-01-09] MEDS: ATORVASTATIN 20 MG (LIPITOR) TABLET PO SCH (20:42)
[2017-01-09] MEDS: MIRTAZAPINE 15 MG (REMERON) TAB PO SCH (20:43)
[2017-01-09] MEDS: hydrOXYzine (ATARAX) 10 MG TAB PO SCH (23:04)
[2017-01-10 06:00] VITALS: BP 112/53
[2017-01-10] MEDS: MEROPENEM 500 MG in NS (IVPB) 100 ML IV SCH ×3 (06:15→23:08)
[2017-01-10 06:16] LABS: RED BLOOD COUNT 3.3 10^6/uL (4.35-5.85); RED CELL DISTRIBUTION WIDTH 12.1 % (10.0-14.5)
[2017-01-10 07:07] LABS: ALANINE AMINOTRANSFERASE 19 U/L (0-55); ALBUMIN 3.1 G/DL (3.2-4.5); ANION GAP 8 MMOL/L (5-14); ASPARTATE AMINO TRANSFERASE 25 U/L (5-34); BILIRUBIN,TOTAL 0.2 MG/DL (0.1-1.0); BLOOD UREA NITROGEN 15 MG/DL (7-18); BUN/CREATININE RATIO 17; CALCIUM 9.4 MG/DL (8.5-10.1); CARBON DIOXIDE 31 MMOL/L (21-32); CHLORIDE 100 MMOL/L (98-107); CREATININE SERUM 0.88 MG/DL (0.60-1.30); GFR ESTIMATED > 60; GLUCOSE 86 MG/DL (70-105); POTASSIUM 4.3 MMOL/L (3.6-5.0); SODIUM 139 MMOL/L (135-145); TOTAL PROTEIN 6.2 G/DL (6.4-8.2)
[2017-01-10] MEDS: UMECLIDINIUM BROMIDE (INCRUSE ELLIPTA) 7'S IH SCH (07:46)
[2017-01-10] MEDS: RT-ADVAIR HFA 115/21 MCG PER PUFF IH SCH ×2 (07:46→18:58)
[2017-01-10] MEDS: RT-ALBUTEROL SULF 2.5 MG/3 ML PRE-MIX VIAL INH SCH ×4 (07:46→18:58)
[2017-01-10] MEDS: MAGNESIUM OXIDE (MAG-OX)400 MG TAB PO SCH (08:36)
[2017-01-10] MEDS: ASPIRIN E.C. 81 MG (ECOTRIN) TAB PO SCH (08:36)
[2017-01-10] MEDS: DILTIAZEM 120 MG (CARDIZEM CD) CAP PO SCH (08:36)
[2017-01-10] MEDS: LOSARTAN 50 MG (COZAAR) TAB PO SCH ×2 (08:36→20:38)
[2017-01-10] MEDS: DIGOXIN 0.125 MG (LANOXIN) TAB PO SCH (08:37)
[2017-01-10] MEDS: VITAMIN D3 1,000 UNITS (CHOLECALCIFEROL) TABLET PO SCH (08:37)
[2017-01-10 08:40] VITALS: BP 153/71
[2017-01-10] MEDS ORDERED: chlordiazePOXIDE 25 MG (LIBRIUM) CAP NON-FORMULARY PO SCH (09:06)
[2017-01-10] MEDS ORDERED: LEVOFLOXACIN 750 MG TAB (LEVAQUIN) PO SCH ×2 (11:00)
[2017-01-10] MEDS: ACETAMINOPHEN 500 MG TAB (TYLENOL) PO PRN (14:33)
[2017-01-10] MEDS: FAMOTIDINE 20 MG (PEPCID) TABLET PO SCH (16:06)
[2017-01-10 18:00] VITALS: BP 147/75
[2017-01-10] MEDS ORDERED: ONDANSETRON 8 MG (ZOFRAN) ORAL DISSOLVE TAB PO PRN (18:15)
[2017-01-10] MEDS ORDERED: CALCIUM CARBONATE 500 MG (TUMS) TAB.CHEW PO PRN (18:15)
[2017-01-10] MEDS: chlordiazePOXIDE 25 MG (LIBRIUM) CAP NON-FORMULARY PO SCH (18:29)
[2017-01-10] MEDS: hydrOXYzine (ATARAX) 10 MG TAB PO SCH (20:38)
[2017-01-10] MEDS: ATORVASTATIN 20 MG (LIPITOR) TABLET PO SCH (20:38)
[2017-01-10] MEDS: MIRTAZAPINE 15 MG (REMERON) TAB PO SCH (20:38)
[2017-01-10 20:42] VITALS: BP 141/69
[2017-01-11 06:00] VITALS: BP 118/56
[2017-01-11] MEDS: MEROPENEM 500 MG in NS (IVPB) 100 ML IV SCH (06:46)
[2017-01-11] MEDS: RT-ADVAIR HFA 115/21 MCG PER PUFF IH SCH (07:14)
[2017-01-11] MEDS: RT-ALBUTEROL SULF 2.5 MG/3 ML PRE-MIX VIAL INH SCH ×2 (07:14→10:43)
[2017-01-11] MEDS: UMECLIDINIUM BROMIDE (INCRUSE ELLIPTA) 7'S IH SCH (07:15)
[2017-01-11] MEDS: MAGNESIUM OXIDE (MAG-OX)400 MG TAB PO SCH (08:24)
[2017-01-11] MEDS: ASPIRIN E.C. 81 MG (ECOTRIN) TAB PO SCH (08:24)
[2017-01-11] MEDS: DILTIAZEM 120 MG (CARDIZEM CD) CAP PO SCH (08:24)
[2017-01-11] MEDS: LOSARTAN 50 MG (COZAAR) TAB PO SCH (08:24)
[2017-01-11] MEDS: VITAMIN D3 1,000 UNITS (CHOLECALCIFEROL) TABLET PO SCH (08:25)
[2017-01-11] MEDS: KCL 10 MEQ TAB (MICRO K) PO SCH (08:25)
[2017-01-11] MEDS: DIGOXIN 0.125 MG (LANOXIN) TAB PO SCH (08:25)
[2017-01-11] MEDS: FUROSEMIDE 20 MG (LASIX) TAB PO SCH (08:25)
[2017-01-11] MEDS: chlordiazePOXIDE 25 MG (LIBRIUM) CAP NON-FORMULARY PO SCH (08:25)
[2017-01-11] MEDS ORDERED: LEVO750T39 PO (08:45)
--- NOTE | 2017-01-11 08:47 | Discharge Inst-Simple/Standard ---
Discharge Inst-Standard Discharge Medications New, Converted or Re-Newed RX: Transmitted to Pharmacy Patient Instructions/Follow Up Plan of Care/Instructions/FU: Fwup with me on , 01/14/17 Activity as Tolerated: Yes Discharge Diet: Cardiac Diet MELODY MCGEE DO Jan 11, 2017 8:47 am
[2017-01-11 11:15] VITALS: BP 118/56
--- NOTE | 2017-01-11 11:26 | Physical Therapy Progress Note ---
Therapy Progress Note Pt standing up dressing upon arrival. Pt asked PT to step out for just a couple of minutes. PT then spoke with pt and didn't want to exercise since she was discharging today. PT spoke with pt about knowing limits and taking a little extra time with activities so pt doesn't get SOB. Pt reports family will assist pt getting home and will have help from adobe flex developer at home. Pt is left with all needs met at end of tx. 1 visit, FA (20m) Time: [id number] NING CHANG PTA Jan 11, 2017 11:26
--- NOTE | 2017-01-12 21:53 | Discharge Summary ---
Diagnosis/Chief Complaint Date of Admission Jan 08, 2017 at 12:33 pm Date of Discharge Jan 11, 2017 at 11:15 am Discharge Date: Jan 11, 2017 Admission Diagnosis Admission Diagnosis 1. Left Upper Lobe Pneumonia--to SWING bed to continue Levaquin/Meropenem 2. COPD--continue home inhalers, SVNs with albuterol and home oxygen 3. Hypertension--continue home meds 4. History of CAD--stable Discharge Diagnosis 1. Left Upper Lobe Pneumonia--improved 2. COPD--stable 3. Hypertension--stable 4. History of CAD--stable 5. Anxiety--stable Discharge Summary Hospital Course Hospital Course This is a 76 year old female who was originally admitted to acute care with a left upper lobe pneumonia. She was placed on Levaquin and Meropenem as well as oxygen and breathing treatments. She was clinically improving but it was decided she would need longer on IV antibiotics and to start PT so a SWING bed evaluation was obtained. She was transferred to SWING bed and continued on Levaquin and Merropenem. Clinically she continued to improve. Her cough spasms improved and she remained afebrile. She was up ambulating with no shortness of air and by the day of discharge she felt ready to go home. We did discuss a repeat CT scan of her chest in about 6 weeks to ascertain resolution of the infiltrate area as it is around her old scar. She will followup with me in my office in 1 week. Labs Laboratory Tests 01/10/17 06:05: Albumin 3.1L, Hematocrit 32L, Hemoglobin 10.2L, Red Blood Count 3.30L, Total Protein 6.2L Procedures None. Consultations Dr. King Discharge Physical Examination Allergies: Coded Allergies: diphenhydramine HCl (Unverified Allergy, Severe, anaphalaxis, 09/10/14) Pt states this happened several yrs ago and that she had almost forgotten about it because she has avoided t for so long. fentanyl (Unverified Allergy, Mild, 09/10/14) PT DOES NOT WANT TO TAKE--SHE STAES IT MADE HER COPD WORSE midazolam (Unverified Allergy, Mild, PT TAKE LIBRIUM AT HOME, 09/10/14) PT DOESN'T WANT TO TAKE--SHE STATED IT MADE HER COPD OWRSE. Beta-Blockers (Beta-Adrenergic Bloc (Verified Allergy, Unknown, 09/10/14) Cephalosporins (Verified Allergy, Unknown, HAS RECEIVED CEFEPIME IN PAST W /O PROBLEM, 09/14/14) Penicillins (Verified Allergy, Unknown, HAS REC AZACTAM IN PAST WITHOUT PROBLEMS, 09/10/14) risedronic acid (Verified Allergy, Unknown, 09/10/14) prednisone (Unverified Adverse Reaction, Intermediate, Large doses cause SOA, 09/10/14) meperidine (Unverified Adverse Reaction, Mild, NAUSEA, 09/10/14) propofol (Unverified Adverse Reaction, Mild, 09/10/14) PT DOES NOT WANT TO TAKE--SHE STATES IT MADE HER COPD WORSE erythromycin base (Verified Adverse Reaction, Unknown, MAKES PATIENT NAUSEADED, 09/10/14) Vitals & I&Os Vital Signs Date Time Temp Pulse Resp B/P Pulse Ox O2 Delivery O2 Flow Rate FiO2 01/11/17 11:15 84 18 118/56 95 2.00 01/11/17 08:00 Nasal Cannula 01/11/17 06:00 98.8 General Appearance: Alert, Oriented X3, No Acute Distress Respiratory: Clear to Auscultation (decreased aeration) Cardiovascular: Regular Rate Abdominal: Normal Bowel Sounds, Soft, No Tenderness Extremities: No Clubbing, No Cyanosis, No Edema Psych/Mental Status: Mental Status NL Discharge Home Medications Reviewed and agree with Discharge Medication list on patient's Discharge Instruction sheet Instructions to Patient/Family Please see electonic discharge instructions given to patient. MELODY MCGEE DO Jan 12, 2017 9:53 pm
--- NOTE | 2017-01-15 11:04 | Therapy Team Discharge Summary ---
Therapy Discharge Summary Discharge Recommendations Date of Discharge Jan 11, 2017 at 11:15 Therapy D/C Recommendations: Home w/ Family Support Physical Therapy This patient was seen on [facility] for continued therapy services post admit for pneumonia. Upon admit, she was SBA with transfes and required min-cga with gait. Treatment consisted of functional mobility training as well as strengthening and at discharge she was mod indep with transfers and gait-- achieving goals set at evaluation. Pt did make good functional progress. Will dc PT due to dc from facility. PT [place] Tender Goals Halfway Goals PT [place] Tender Goals Time Frame: Jan 15, 2017 Transfers (B,C,W/C) (FIM): 6 (met) Sit to Lying (QC): 6 (met) Lying-Sitting on Side/Bed(QC): 6 (met) Sit to Stand (QC): 6 (met) Chair/Kdy-js-Tpeow Xfer(QC): 6 (mety) Gait (FIM): 5 (exceeded; scored 6) Distance: 300' Walk 50ft with 2 Turns (QC): 4 (met) Walk 150 ft (QC): 4 (met) Gait Level of Assist: 5 Gait Assistive Device: None Stairs (FIM): 2 # of Steps: 4 Stairs Level Of Assist: 5 OT [place] Tender Goals Halfway Goals 1=Demonstrate adherence to instructed precautions during ADL tasks. 2=Patient will verbalize/demonstrate understanding of assistive devices/ modifications for ADL. 3=Patient will improve strength/tolerance for activity to enable patient to perform ADL's. JO ANN GARVEY PT Jan 15, 2017 11:04
== END 2017-01-11 11:15 | disposition home or self-care (01) | DRG 190 ==
LOC: 4TH 12:33
PROVIDERS: ADMIT Family Medicine; ATTEND Family Medicine
DX: J44.0 Chronic obstructive pulmonary disease with (acute) lower respiratory infection (principal); J18.9 Pneumonia, unspecified organism; I10 Essential (primary) hypertension; F41.9 Anxiety disorder, unspecified
CPT/HCPCS: 36415; 80053; 85027; 94640; 94760

== ENCOUNTER → 2017-03-18 | Outpatient (CLI) | payer MEDICARE ==
[~2017-03-18] MED LIST changes: +LEVO750T39 PO
--- NOTE | 2017-03-18 15:34 | Diagnostic Imaging Report ---
PROCEDURE: CT chest without contrast. TECHNIQUE: Multiple contiguous axial images were obtained through the chest without the use of intravenous contrast. INDICATION: Hypoxia. COMPARISON: 01/04/2017. FINDINGS: There is advanced emphysema changes worst in the upper lobes. There is a stable 8 mm nodule in the lateral aspect of the left lung base within the lower lobe. In the posterior aspect of the left upper lobe there is a preexisted cavity surrounded by area of consolidation measuring 3.5 x 2.1 cm compared to 3.5 x 2.3 cm on 01/04/2017. There is a minimal air-fluid level within the pre-existing cavity. There is also pre-existing thecal scarring. The right lung demonstrates no significant consolidation or mass. There is scarring in the left upper lobe similar to prior exams. The heart size is normal. Trace pericardial fluid is seen. The thoracic aorta is normal in caliber. No mediastinal mass or lymphadenopathy. No hilar lymphadenopathy. No pleural effusion. Sections in the upper abdomen demonstrate mild nonspecific thickening in the left adrenal gland and stable hypodense lesion in the spleen measuring 1.1 cm unchanged from 2015 exam in favor of benign etiology. Osseous structures demonstrate mild degenerative changes. IMPRESSION: 1. Again seen 3.5 cm area of consolidation adjacent to a pre-existing cavity in the posterior aspect of the left upper lobe. Etiology is indeterminate. PET/CT evaluation is suggested. 2. Advanced emphysema. Dictated by: Dictated on workstation # [id number]
== END ==
LOC: RAD 11:01
PROVIDERS: ATTEND Internal Medicine Critical Care Medicine
DX: J43.9 Emphysema, unspecified (principal); R91.1 Solitary pulmonary nodule; R09.02 Hypoxemia
CPT/HCPCS: 71250

== ENCOUNTER 2017-04-15 08:48 | Inpatient (IN) | payer MEDICARE ==
[~2017-04-15] VITALS: Ht 152.4 cm; Wt 52.6 kg
[2017-04-15 08:30] VITALS: BP 137/69
[~2017-04-15 08:48] MED LIST changes: +ALBU2.5V4 NEB; +CARB15DR2 OU; +FUROSEMIDE 20 MG (LASIX) TAB PO SCH; +IBUPROFEN TABLET 200 MG TAB PO PRN; +KCL 10 MEQ TAB (MICRO K) PO SCH; +NEO/3.5O18 OU; +ONDANSETRON 4 MG/2 ML (SDV) Z0FRAN IV PRN; +PATIENT MAY USE OWN MEDS, ALL MC SCH; +RT-ALBUINH IH
[2017-04-15] MEDS ORDERED: FUROSEMIDE 40 MG (LASIX) TAB PO NR (09:08)
[2017-04-15] MEDS ORDERED: KCL 20 MEQ TAB (K-DUR) PO NR (09:10)
--- NOTE | 2017-04-15 09:22 | Diagnostic Imaging Report ---
INDICATION: Lower respiratory infection. EXAM: PA and lateral chest. FINDINGS: Comparison with study from 04/12/2017 shows infiltrate present in the right lung base that has increased slightly in density since the prior exam. There is left apical scarring. There are emphysematous changes in the lungs. IMPRESSION: Left apical density unchanged from exam dated 10/12/2016. The infiltrate at the right lung base is suspicious for pneumonia. Dictated by: Dictated on workstation # [id number]
[2017-04-15] MEDS: FAMOTIDINE 20 MG (PEPCID) TABLET PO SCH ×2 (10:00→22:12)
[2017-04-15] MEDS: ASPIRIN E.C. 81 MG (ECOTRIN) TAB PO SCH (10:00)
[2017-04-15] MEDS: DIGOXIN 0.125 MG (LANOXIN) TAB PO SCH (10:01)
[2017-04-15] MEDS: LOSARTAN 50 MG (COZAAR) TAB PO SCH ×2 (10:01→22:10)
[2017-04-15] MEDS: chlordiazePOXIDE 25 MG (LIBRIUM) CAP NON-FORMULARY PO SCH ×2 (10:01→22:24)
[2017-04-15] MEDS: ARTIFICAL TEARS 0.4 ML UNIT DOSE (REFRESH PLUS) OU SCH ×3 (10:01→22:14)
[2017-04-15] MEDS: DOCUSATE SODIUM 100 MG (COLACE) CAP PO SCH ×2 (10:01→22:12)
[2017-04-15] MEDS: DILTIAZEM 120 MG (CARDIZEM CD) CAP PO SCH (10:06)
[2017-04-15] MEDS: NS IV SCH (10:47)
[2017-04-15] MEDS: GENTAMICIN IV SCH (10:47)
[2017-04-15] MEDS: RT-ALBUTEROL SULF 2.5 MG/3 ML PRE-MIX VIAL IH SCH ×3 (10:57→19:18)
--- NOTE | 2017-04-15 11:10 | Occ Therapy Progress Note ---
Therapy Progress Note Date Seen by Provider: Apr 15, 2017 Time Seen by Provider: 10:35 Order received for swing bed evaluation. Spoke with pt. regarding this. She is aware. Declines working with OT at this moment due to having company. OT encourages her but pt. refuses. Will come back at later time this afternoon. 1035 1, visit CHARITY JOYCE OT Apr 15, 2017 11:10
--- NOTE | 2017-04-15 11:42 | Physical Therapy Evaluation ---
PT Evaluation-General Medical Diagnosis Admission Date Apr 15, 2017 at 08:48 Medical Diagnosis: UTI/sepsis Onset Date: Apr 11, 2017 Therapy Diagnosis Therapy Diagnosis: debility Height/Weight Height (Feet): 5 Height (Inches): 0.00 Weight (Pounds): 116 Weight (Ounces): 0.0 Precautions Precautions/Isolations: Standard Precautions Referral Physician: Brandi Reason for Referral: Evaluation/Treatment Medical History Pertinent Medical History: Arthritis, GERD Additional Medical History UTI with sepsis Current History SWB status Reviewed History: Yes Social History Home: Single Level Current Living Status: Alone Entry Into Home: Stairs With Railing PT Steps Into Home: 3 Prior/Core FIM Prior Level of Function Functional [place] Measure 0=Not Assessed/NA 4=Minimal Assistance 1=Total Assistance 5=Supervision or Setup 2=Maximal Assistance 6=Modified [place] 3=Moderate Assistance 7=Complete [place] Bed Mobility: 7 Transfers (B,C,W/C) (FIM): 7 Gait: 7 PT Evaluation-Current Subjective Patient agrees to PT. Pain Numeric Pain Scale: 0-No Pain Location: No Pain Reported Pt/Family Goals return to home Objective Patient Orientation: Normal For Age Problem Solving: Good Attachments: Oxygen (2L) ROM/Strength ROM Lower Extremities bilateral LE WFL Strenght Lower Extremities right knee flexion/extension 4/5; hip flexion 4/5; ankle dorsi/plantarflexion 4/ 5 left knee flexion/extension 4/5; hip flexion 4/5; ankle dorsi/plantarflexion 4/5 Integumentary/Posture Integumentary refer to nursing notes Bowel Incontinence: No Bladder Incontinence: No Posture WNL Neuromuscular (Tone, Coordination, Reflexes) grossly intact Sensory Vision: Wears Glasses Hearing: Functional Sensation Right Lower Extremit: Intact Sensation Left Lower Extremity: Intact Transfers Functional [place] Measure 0=Not Assessed/NA 4=Minimal Assistance 1=Total Assistance 5=Supervision or Setup 2=Maximal Assistance 6=Modified [place] 3=Moderate Assistance 7=Complete [place] Transfers (B, C, W/C) (FIM): 7 Scootin Rollin Supine to/from Sit: 7 bed t/f WC(FIM only if WC use): 6 Sit to Lying (QC): 6 Lying to Sitting/Side of Bed(Q: 6 Sit to Stand (QC): 6 Chair/Anl-lv-Tqvqz Xfer(QC): 6 Gait Does the Patient Walk?: Yes Mode of Locomotion: Walk Anticipated Mode of Locomotion: Walk Gait (FIM): 7 Distance (FIM): 3=150 ft Distance: 200' Walk 50 ft with 2 Turns(QC): 6 Walk 150 ft (QC): 6 Gait Level of Assist: 7 Gait Assistive Device: None Comments/Gait Description assist for O2 tank Balance Sitting Static: Normal Sitting Dynamic: Normal Standing Static: Normal Standing Dynamic: Normal Treatment SAO2 with activity/ambulation x 200' at independent LOF, is 87% on 3L with quick recovery to 94% after 45 seconds. Assessment/Needs 76 y.o. female, will benefit from short term skilled PT to address safe, functional mobility. Patient is currently at independent LOF and is limited due to increase SOA with O2 3L NC in place secondary to COPD. Patient is aware of limitations due to COPD. PT will dismiss tomorrow if patient remains at independent LOF with gross motor skills. Rehab Potential: Good PT Nursing Home Goals Lead Radiologic Technologist Goals PT Nursing Home Goals Time Frame: Apr 22, 2017 Transfers (B,C,W/C) (FIM): 7 Sit to Lying (QC): 6 Lying-Sitting on Side/Bed(QC): 6 Sit to Stand (QC): 6 Rollin Chair/Zmc-ar-Fdjlm Xfer(QC): 6 Does the Patient Walk: Yes Gait (FIM): 7 Gait distance (FIM): 3=150 ft Walk 50ft with 2 Turns (QC): 6 Walk 150 ft (QC): 6 Gait Level of Assist: 7 Gait Assistive Device: None PT Plan Problem List Problem List: Activity Tolerance Treatment/Plan Treatment Plan: Continue Plan of Care Treatment Plan: Education, Functional Activity [place], Functional Strength, Gait , Safety, Therapeutic Exercise, Transfers Treatment Duration: Apr 22, 2017 # of days/week 6 Visits Per Week: 6 Minutes/Day (M-F): 15-30 Minutes/Day (Sat/[place]): PRN Pt/Family Agrees w/Plan: Yes Safety Risks/Education Patient Education: Safety Issues Teaching Recipient: Patient, Family Teaching Methods: Discussion Response to Teaching: Verbalize Understanding Discharge Recommendations Therapy D/C Recommendations: Home Independently Time/GCodes Time In: 1055 Time Out: 1118 Total Billed Treatment Time: 23 Total Billed Treatment 1 visit EVLowC 8 min FA 15 min JANI WASSERMAN PT Apr 15, 2017 11:42
[2017-04-15] MEDS: MEROPENEM 500 MG in NS (IVPB) 100 ML IV SCH ×2 (14:28→22:15)
--- NOTE | 2017-04-15 16:05 | Occupational Therapy Eval ---
OT Evaluation-General/PLF Medical Diagnosis Admission Date Apr 15, 2017 at 08:48 Medical Diagnosis: UTI/sepsis Onset Date: Apr 11, 2017 Therapy Diagnosis Therapy Diagnosis: Weakness Height/Weight Height (Feet): 5 Height (Inches): 0.00 Weight (Pounds): 116 Weight (Ounces): 0.0 Precautions Precautions/Isolations: Fall Prevention, Standard Precautions Weight Bear Status Weight Bearing Restriction: Weight Bearing/Tolerated Referral Physician: Brandi Referral Reason: Activity Tolerance, Self Care, Evaluation/Treatment, Strengthening/ROM Medical History Pertinent Medical History: Arthritis, COPD, GERD Additional Medical History appendectomy, cardiomyopathy, diverticulosis, anxiety, emphyzema Current History Pt. came to ER with nausea and vomitting. Reviewed History: Yes Social History Home: Single Level Current Living Status: Alone Entry Into Home: Stairs With Railing Steps Into Home: 3 ADL-Prior Level of Function ADL PLOF Comments Pt. states that she was independent with basic self skills. DME/Equipment: Shower DME/Equipment Comments Pt. has a walker but does not use it. Drive Self: Yes OT Current Status Subjective Pt. does not report pain,but states, "I just get tired so easily." Appearance Pt. in bed. Adamently declined showering, but agreed to spongebathe. Mental Status/Objective Patient Orientation: Person, Place Attachments: Oxygen Current Glasses/Contacts: Yes Hand Dominance: Right Upper Extremity ROM WFL Upper Extremity Coordination intact Upper Extremity Sensation intact ADL-Treatment Functional [place] Measure 0=Not Assessed/NA 4=Minimal Assistance 1=Total Assistance 5=Supervision or Setup 2=Maximal Assistance 6=Modified [place] 3=Moderate Assistance 7=Complete IndependenceIRFPAI Quality Coding Scale 6 Independent with activity with or without an assistive device 5 Patient requires set up or clean up by helper. Patient completes activity by themselves 4 Supervision or touching assist (CGA). [place] provide cues , steadying assist 3 The helper provides less than half the effort to complete the activity 2 The helper provides more than half the effort to complete the activity 1 Dependent. The helper does all the effort to complete an activity 7 Patient refused to complete or attempt activity 9 The patient did not perform the activity before the current illness or injury 88 Not attempted due to Medical conditions or safety concerns Grooming (FIM): 5 (set up to brush teeth.) Bathing (FIM): 5 (Pt. is able to bathe self on side of bed with SBA after set up.) Lower Body Dressing (FIM): 5 (Pt. is able to doff socks and don clean socks. Able to pull down underwear, wash/dry, and pull them back up.) Toileting (FIM): 5 Toileting Hygiene (QC): 5 Transfers (B, C, W/C) (FIM): 5 Toilet/Commode Transfer (FIM): 5 Toilet Transfer (QC): 5 Education OT Patient Education: Correct positioning, Energy conservation, Modified ADL techniques, Progress toward Goal/Update tx plan, Purpose of tx/functional activities, Reviewed precautions, Rehab process, Transfer techniques Teaching Recipient: Patient Teaching Methods: Demonstration, Discussion Response to Teaching: Verbalize Understanding, Return Demonstration OT Short Term Goals Short Term Goals 1=Demonstrate adherence to instructed precautions during ADL tasks. 2=Patient will verbalize/demonstrate understanding of assistive devices/ modifications for ADL. 3=Patient will improve strength/tolerance for activity to enable patient to perform ADL's. OT [facility] Goals Loading Inspector Goals Time Frame: Apr 29, 2017 Eating (FIM): 6 Eating (QC): 6 Groomin Oral Hygiene (QC): 6 Bathing(FIM): 5 Upper Body Dressing(FIM): 6 Lower Body Dressing(FIM): 6 Toileting(FIM): 6 Toileting Hygiene (QC): 6 Transfers (B,C,W/C) (FIM): 6 Toilet/Commode Transfer(FIM): 6 Toilet/Commode Transfer (QC): 6 Shower Transfer(FIM): 5 Additional Goals: 1-Demonstrate ADL Tasks, 2-Verbalize Understanding, 3- ImproveStrength/[place] 1=Demonstrate adherence to instructed precautions during ADL tasks. 2=Patient will verbalize/demonstrate understanding of assistive devices/ modifications for ADL. 3=Patient will improve strength/tolerance for activity to enable patient to perform ADL's. OT Education/Plan Problem List/Assessment Assessment: Decreased Activ Tolerance, Impaired I ADL's, Impaired Self-Care Skills Pt. fatigues very easily during treatment. Requires frequent rest breaks. Discharge Recommendations Plan/Recommendations: Continue POC Therapy D/C Recommendations: Home w/ Family Support Barriers to Progress Fatigue and shortness of breath. Treatment Plan/Plan of Care Treatment,Training & Education: Yes Patient would benefit from OT for education, treatment and training to promote independence in ADL's, mobility, safety and/or upper extremity function for ADL' s. Plan of Care: ADL Retraining, Functional Mobility, UE Funct Exercise/Act Treatment Duration: Apr 29, 2017 Visits Per Week: 5-6 Rehab Potential: Good Time/GCodes Start Time: 14:50 Stop Time: 15:15 Total Time Billed (hr/min): 25 Billed Treatment Time 1, EVhigh x 10minutes, ADL x 15minutes CHARITY JOYCE OT Apr 15, 2017 16:05
[2017-04-15] MEDS: CALCIUM CARBONATE 500 MG (TUMS) TAB.CHEW PO PRN ×2 (16:43→22:14)
[2017-04-15 17:49] VITALS: BP 132/63
[2017-04-15] MEDS: RT-ADVAIR HFA 115/21 MCG PER PUFF IH SCH (19:18)
[2017-04-15] MEDS: ATORVASTATIN 20 MG (LIPITOR) TABLET PO SCH (22:11)
[2017-04-15] MEDS: hydrOXYzine (ATARAX) 10 MG TAB PO SCH (22:11)
[2017-04-15] MEDS: MIRTAZAPINE 15 MG (REMERON) TAB PO SCH (22:12)
[2017-04-16] MEDS: RT-ALBUTEROL SULF 2.5 MG/3 ML PRE-MIX VIAL IH SCH ×7 (00:39→22:09)
[2017-04-16 06:00] VITALS: BP 122/59
[2017-04-16 06:33] LABS: BASOPHILS % (AUTO) 0 % (0-10); EOSINOPHILS # (AUTO) 0.4 10^3/uL (0.0-0.3); EOSINOPHILS % (AUTO) 5 % (0-10); LYMPHOCYTES # (AUTO) 1.1 X 10^3 (1.0-4.0); LYMPHOCYTES % (AUTO) 13 % (12-44); MEAN CORPUSCULAR HEMOGLOBIN 31 PG (25-34); MEAN CORPUSCULAR HGB CONC 32 G/DL (32-36); MEAN CORPUSCULAR VOLUME 98 FL (80-99); MEAN PLATELET VOLUME 8.6 FL (7.4-10.4); MONOCYTES # (AUTO) 1.3 X 10^3 (0.0-1.0); MONOCYTES % (AUTO) 15 % (0-12); NEUTROPHILS # (AUTO) 5.9 X 10^3 (1.8-7.8); NEUTROPHILS % (AUTO) 68 % (42-75); PLATELET COUNT 275 10^3/uL (130-400); RED BLOOD COUNT 3.13 10^6/uL (4.35-5.85); RED CELL DISTRIBUTION WIDTH 12.5 % (10.0-14.5); WHITE BLOOD COUNT 8.7 10^3/uL (4.3-11.0)
[2017-04-16] MEDS: KCL 10 MEQ TAB (MICRO K) PO SCH (06:47)
[2017-04-16] MEDS: UMECLIDINIUM BROMIDE (INCRUSE ELLIPTA) 7'S IH SCH (06:49)
[2017-04-16] MEDS: RT-ADVAIR HFA 115/21 MCG PER PUFF IH SCH ×2 (06:49→18:51)
[2017-04-16] MEDS: MEROPENEM 500 MG in NS (IVPB) 100 ML IV SCH ×3 (06:50→22:53)
[2017-04-16 07:01] LABS: ALBUMIN 2.9 G/DL (3.2-4.5); BILIRUBIN,TOTAL 0.4 MG/DL (0.1-1.0); CALCIUM 9.6 MG/DL (8.5-10.1); CREATININE SERUM 0.92 MG/DL (0.60-1.30); MAGNESIUM 1.5 MG/DL (1.8-2.4)
[2017-04-16] MEDS: FUROSEMIDE 20 MG (LASIX) TAB PO SCH (09:12)
[2017-04-16] MEDS: ARTIFICAL TEARS 0.4 ML UNIT DOSE (REFRESH PLUS) OU SCH ×3 (09:12→22:55)
[2017-04-16] MEDS: DOCUSATE SODIUM 100 MG (COLACE) CAP PO SCH ×2 (09:12→22:51)
[2017-04-16] MEDS: ASPIRIN E.C. 81 MG (ECOTRIN) TAB PO SCH (09:12)
[2017-04-16] MEDS: FAMOTIDINE 20 MG (PEPCID) TABLET PO SCH ×2 (09:13→22:52)
[2017-04-16] MEDS: DIGOXIN 0.125 MG (LANOXIN) TAB PO SCH (09:13)
[2017-04-16] MEDS: LOSARTAN 50 MG (COZAAR) TAB PO SCH ×2 (09:14→22:52)
[2017-04-16] MEDS: DILTIAZEM 120 MG (CARDIZEM CD) CAP PO SCH (09:14)
[2017-04-16] MEDS: chlordiazePOXIDE 25 MG (LIBRIUM) CAP NON-FORMULARY PO SCH ×2 (09:20→22:52)
--- NOTE | 2017-04-16 10:35 | Progress Note (SOAP) ---
Subjective Date Seen by Provider: Apr 16, 2017 Time Seen by Provider: 10:32 Subjective/Events-last exam Fwup enterococcal sepsis, UTI with Corynebacterium, RLL Pneumonia, COPD, Hypertension, GERD. Still weak but feeling a little bit better. Has had some coughing episodes this morning and was able to cough up phlegm. Feet not as swollen after lasix yesterday. Did get up with PT an ambulate a short distance yesterday. Review of Systems General: Fatigue Pulmonary: Cough Neurological: Weakness Objective Exam Vital Signs Date Time Temp Pulse Resp B/P (MAP) Pulse Ox O2 Delivery O2 Flow Rate FiO2 04/16/17 09:00 Nasal Cannula 4.00 04/16/17 06:59 4.00 04/16/17 06:56 4.00 04/16/17 06:49 92 4.00 04/16/17 06:00 99.2 84 20 122/59 97 4.00 04/15/17 20:00 4.00 04/15/17 19:19 96 4.00 04/15/17 19:18 4.00 04/15/17 17:49 99.6 81 20 132/63 99 4.00 04/15/17 16:42 98.8 04/15/17 15:14 79 2.00 04/15/17 10:57 97 4.00 I & O 04/16/17 07:00 Intake Total 2618.75 ml Output Total 2400 ml Balance 218.75 ml Capillary Refill : General Appearance: Mild Distress (with cough) Neck: Supple Respiratory: Crackles (right base), Decreased Breath Sounds Cardiovascular: Regular Rate, Rhythm, Systolic Murmur, Gallop/S4 Gastrointestinal: normal bowel sounds, non tender, soft Extremity: Non Tender, No Calf Tenderness, No Pedal Edema Neurologic/Psychiatric: Alert, Oriented x3 Skin: Ecchymosis (right forearm) Results Lab Laboratory Tests 04/16/17 06:20: White Blood Count 8.7, Red Blood Count 3.13L, Hemoglobin 9.7L, Hematocrit 31L, Mean Corpuscular Volume 98, Mean Corpuscular Hemoglobin 31, Mean Corpuscular Hemoglobin Concent 32, Red Cell Distribution Width 12.5, Platelet Count 275, Mean Platelet Volume 8.6, Neutrophils (%) (Auto) 68, Lymphocytes (%) (Auto) 13, Monocytes (%) (Auto) 15H, Eosinophils (%) (Auto) 5, Basophils (%) (Auto) 0, Neutrophils # (Auto) 5.9, Lymphocytes # (Auto) 1.1, Monocytes # (Auto) 1.3H, Eosinophils # (Auto) 0.4H, Basophils # (Auto) 0.0, Sodium Level 139, Potassium Level 4.0, Chloride Level 100, Carbon Dioxide Level 29, Anion Gap 10, Blood Urea Nitrogen 18, Creatinine 0.92, Estimat Glomerular Filtration Rate 59, BUN/ Creatinine Ratio 20, Glucose Level 95, Calcium Level 9.6, Magnesium Level 1.5L, Total Bilirubin 0.4, Aspartate Amino Transf (AST/SGOT) 26, Alanine Aminotransferase (ALT/SGPT) 22, Alkaline Phosphatase 63, Total Protein 6.0L, Albumin 2.9L Assessment/Plan Assessment/Plan Assess & Plan/Chief Complaint 1. Enterococcal Sepsis--Continue Gentamicin, Clinically improving and WBC count down to 8.7 2. UTI with Corynebacterium--continue abx 3. RLL pneumonia--Continue meropenem with gentamicin 4. COPD--stable on home inhalers, oxygen and SVNs 5. Hypertension--stable on home meds 6. GERD--improving with pepcid at BID 7. Hypomagnesemia--Magnesium now 8. Edema of lower legs--improved after lasix and potassium yesterday 9, Fatigue/Weakness--continue PT and OT MELODY MCGEE DO Apr 16, 2017 10:35
[2017-04-16] MEDS ORDERED: MAGNESIUM 1 GM/100 ML IVPB 100 ML IV NR (10:39)
--- NOTE | 2017-04-16 11:18 | Physical Therapy Daily Note ---
PT Daily Note-Current Subjective Patient agrees to PT. Pain Numeric Pain Scale: 0-No Pain Location: No Pain Reported Mental Status Patient Orientation: Normal For Age Attachments: Oxygen (3L) Transfers Functional [place] Measure 0=Not Assessed/NA 4=Minimal Assistance 1=Total Assistance 5=Supervision or Setup 2=Maximal Assistance 6=Modified [place] 3=Moderate Assistance 7=Complete IndependenceIRFPAI Quality Coding Scale 6 Independent with activity with or without an assistive device 5 Patient requires set up or clean up by helper. Patient completes activity by themselves 4 Supervision or touching assist (CGA). [place] provide cues , steadying assist 3 The helper provides less than half the effort to complete the activity 2 The helper provides more than half the effort to complete the activity 1 Dependent. The helper does all the effort to complete an activity 7 Patient refused to complete or attempt activity 9 The patient did not perform the activity before the current illness or injury 88 Not attempted due to Medical conditions or safety concerns Transfers (B, C, W/C) (FIM): 7 Scootin Roll Left to Right (QC): 6 Supine to/from Sit: 7 Sit to/from Stand: 7 Sit to Lying (QC): 6 Sit to Stand (QC): 6 Chair/Rad-bt-Juuho Xfer(QC): 6 Gait Training Does the Patient Walk?: Yes Gait (FIM): 7 Distance (FIM): 3=150 ft Distance: 200' Walk 50 ft with 2 Turns(QC): 6 Walk 150 ft (QC): 6 Gait Level of Assist: 7 Gait Assistive Device: None safe and functional Assessment Education with patient on O2 tank use to ambulate PRN. Patient is currently and safely at independent LOF with all gross motor skills and does not require skilled PT at this time. PT to dismiss from services. SWB coordinator is aware. PT Rubber Roller Grinder Operator Goals Snf Goals PT Snf Goals Time Frame: Apr 22, 2017 Transfers (B,C,W/C) (FIM): 7 (met 04/16/17) Sit to Lying (QC): 6 (met 04/16/17) Lying-Sitting on Side/Bed(QC): 6 (met 04/16/17) Sit to Stand (QC): 6 (met 04/16/17) Rollin (met 04/16/17) Chair/Zdi-uh-Bffkp Xfer(QC): 6 (met 04/16/17) Does the Patient Walk: Yes Gait (FIM): 7 (met 04/16/17) Gait distance (FIM): 3=150 ft Walk 50ft with 2 Turns (QC): 6 (met 04/16/17) Walk 150 ft (QC): 6 (met 04/16/17) Gait Level of Assist: 7 (met 04/16/17) Gait Assistive Device: None PT Plan Treatment/Plan Treatment Plan: Continue Plan of Care Treatment Plan: Education, Functional Activity [place], Functional Strength, Gait , Safety, Therapeutic Exercise, Transfers Treatment Duration: Apr 22, 2017 Visits Per Week: 6 Minutes/Day (M-F): 15-30 Minutes/Day (Sat/[place]): PRN Time/GCodes Time In: 1105 Time Out: 1110 Total Billed Treatment Time: 15 Total Billed Treatment 1 visit FA 15 min JANI WASSERMAN PT Apr 16, 2017 11:18
[2017-04-16] MEDS: CALCIUM CARBONATE 500 MG (TUMS) TAB.CHEW PO PRN (11:19)
--- NOTE | 2017-04-16 11:19 | Therapy Team Discharge Summary ---
Therapy Discharge Summary Discharge Recommendations Date of Discharge Therapy D/C Recommendations: Home w/ Family Support Physical Therapy Education with patient on O2 tank use to ambulate PRN. Patient is currently and safely at independent LOF with all gross motor skills and does not require skilled PT at this time. PT to dismiss from services. SWB coordinator is aware. PT Bookstore Clerk Goals Assisted Goals PT Bookstore Clerk Goals Time Frame: Apr 22, 2017 Transfers (B,C,W/C) (FIM): 7 (met 04/16/17) Sit to Lying (QC): 6 (met 04/16/17) Lying-Sitting on Side/Bed(QC): 6 (met 04/16/17) Sit to Stand (QC): 6 (met 04/16/17) Rollin (met 04/16/17) Chair/Dse-lq-Tjmmq Xfer(QC): 6 (met 04/16/17) Does the Patient Walk: Yes Gait (FIM): 7 (met 04/16/17) Gait distance (FIM): 3=150 ft Walk 50ft with 2 Turns (QC): 6 (met 04/16/17) Walk 150 ft (QC): 6 (met 04/16/17) Gait Level of Assist: 7 (met 04/16/17) Gait Assistive Device: None OT Assisted Goals Assisted Goals Time Frame: Apr 29, 2017 Eating (FIM): 6 Eating (QC): 6 Groomin Oral Hygiene (QC): 6 Bathing(FIM): 5 Upper Body Dressing(FIM): 6 Lower Body Dressing(FIM): 6 Toileting(FIM): 6 Toileting Hygiene (QC): 6 Transfers (B,C,W/C) (FIM): 6 Toilet/Commode Transfer(FIM): 6 Toilet/Commode Transfer (QC): 6 Shower Transfer(FIM): 5 Additional Goals: 1-Demonstrate ADL Tasks, 2-Verbalize Understanding, 3- ImproveStrength/[place] 1=Demonstrate adherence to instructed precautions during ADL tasks. 2=Patient will verbalize/demonstrate understanding of assistive devices/ modifications for ADL. 3=Patient will improve strength/tolerance for activity to enable patient to perform ADL's. JANI WASSERMAN PT Apr 16, 2017 11:19
--- NOTE | 2017-04-16 15:59 | Occupational Ther Daily Note ---
OT Current Status-Daily Note Subjective Pt alert, lying in bed. Pt agreed to therapy. No c/o pain. Mental Status/Objective Patient Orientation: Person, Place, Time, Situation Functional [place] Measure 0=Not Assessed/NA 4=Minimal Assistance 1=Total Assistance 5=Supervision or Setup 2=Maximal Assistance 6=Modified [place] 3=Moderate Assistance 7=Complete [place] ADL-Treatment Mod I for bed mobility using bed rails. Don/doff socks independently. Independent with bathroom transfer and toileting. Functional [place] Measure 0=Not Assessed/NA 4=Minimal Assistance 1=Total Assistance 5=Supervision or Setup 2=Maximal Assistance 6=Modified [place] 3=Moderate Assistance 7=Complete IndependenceIRFPAI Quality Coding Scale 6 Independent with activity with or without an assistive device 5 Patient requires set up or clean up by helper. Patient completes activity by themselves 4 Supervision or touching assist (CGA). [place] provide cues , steadying assist 3 The helper provides less than half the effort to complete the activity 2 The helper provides more than half the effort to complete the activity 1 Dependent. The helper does all the effort to complete an activity 7 Patient refused to complete or attempt activity 9 The patient did not perform the activity before the current illness or injury 88 Not attempted due to Medical conditions or safety concerns Other Treatment Pt was able to complete UE exercises against gravity with good breath, no SOA. Pt able to complete arm chair pushups 10x's without fatigue. After therapy, pt sitting in chair. Left in care of PT. OT Short Term Goals Short Term Goals 1=Demonstrate adherence to instructed precautions during ADL tasks. 2=Patient will verbalize/demonstrate understanding of assistive devices/ modifications for ADL. 3=Patient will improve strength/tolerance for activity to enable patient to perform ADL's. OT General Dentist/Owner Goals General Dentist/Owner Goals Time Frame: Apr 29, 2017 Eating (FIM): 6 Eating (QC): 6 Groomin Oral Hygiene (QC): 6 Bathing(FIM): 5 Upper Body Dressing(FIM): 6 Lower Body Dressing(FIM): 6 Toileting(FIM): 6 Toileting Hygiene (QC): 6 Transfers (B,C,W/C) (FIM): 6 Toilet/Commode Transfer(FIM): 6 Toilet/Commode Transfer (QC): 6 Shower Transfer(FIM): 5 Additional Goals: 1-Demonstrate ADL Tasks, 2-Verbalize Understanding, 3- ImproveStrength/[place] 1=Demonstrate adherence to instructed precautions during ADL tasks. 2=Patient will verbalize/demonstrate understanding of assistive devices/ modifications for ADL. 3=Patient will improve strength/tolerance for activity to enable patient to perform ADL's. OT Education/Plan Problem List/Assessment Pt. fatigues very easily during treatment. Requires frequent rest breaks. Discharge Recommendations Plan/Recommendations: Continue POC Treatment Plan/Plan of Care Patient would benefit from OT for education, treatment and training to promote independence in ADL's, mobility, safety and/or upper extremity function for ADL' s. Plan of Care: ADL Retraining, Functional Mobility, UE Funct Exercise/Act Treatment Duration: Apr 29, 2017 Visits Per Week: 5-6 Rehab Potential: Good Time/GCodes Start Time: 10:40 Stop Time: 10:55 Total Time Billed (hr/min): 15 Billed Treatment Time 1 visit-FA 1 (15 min) JO ANN LNUA Apr 16, 2017 15:59
[2017-04-16 18:00] VITALS: BP 112/72
[2017-04-16] MEDS: hydrOXYzine (ATARAX) 10 MG TAB PO SCH (22:51)
[2017-04-16] MEDS: ATORVASTATIN 20 MG (LIPITOR) TABLET PO SCH (22:51)
[2017-04-16] MEDS: MIRTAZAPINE 15 MG (REMERON) TAB PO SCH (22:51)
[2017-04-17] MEDS: RT-ALBUTEROL SULF 2.5 MG/3 ML PRE-MIX VIAL IH SCH ×6 (02:15→21:38)
[2017-04-17 05:19] LABS: MEAN PLATELET VOLUME 9.1 FL (7.4-10.4); RED BLOOD COUNT 3.06 10^6/uL (4.35-5.85); RED CELL DISTRIBUTION WIDTH 12.2 % (10.0-14.5); WHITE BLOOD COUNT 8.4 10^3/uL (4.3-11.0)
[2017-04-17 05:28] LABS: CREATININE SERUM 1.02 MG/DL (0.60-1.30); POTASSIUM 3.8 MMOL/L (3.6-5.0)
[2017-04-17 05:29] LABS: CALCIUM 9.8 MG/DL (8.5-10.1); MAGNESIUM 1.9 MG/DL (1.8-2.4)
[2017-04-17 06:00] VITALS: BP 126/58
[2017-04-17] MEDS: MEROPENEM 500 MG in NS (IVPB) 100 ML IV SCH ×3 (06:44→22:18)
[2017-04-17] MEDS: RT-ADVAIR HFA 115/21 MCG PER PUFF IH SCH ×2 (07:06→18:36)
[2017-04-17] MEDS: UMECLIDINIUM BROMIDE (INCRUSE ELLIPTA) 7'S IH SCH (07:06)
[2017-04-17] MEDS: LOSARTAN 50 MG (COZAAR) TAB PO SCH ×2 (09:12→20:48)
[2017-04-17] MEDS: DIGOXIN 0.125 MG (LANOXIN) TAB PO SCH (09:12)
[2017-04-17] MEDS: ASPIRIN E.C. 81 MG (ECOTRIN) TAB PO SCH (09:13)
[2017-04-17] MEDS: DOCUSATE SODIUM 100 MG (COLACE) CAP PO SCH ×2 (09:13→20:48)
[2017-04-17] MEDS: FAMOTIDINE 20 MG (PEPCID) TABLET PO SCH (09:13)
[2017-04-17] MEDS: DILTIAZEM 120 MG (CARDIZEM CD) CAP PO SCH (09:13)
[2017-04-17] MEDS: ARTIFICAL TEARS 0.4 ML UNIT DOSE (REFRESH PLUS) OU SCH ×3 (09:14→20:47)
[2017-04-17] MEDS: chlordiazePOXIDE 25 MG (LIBRIUM) CAP NON-FORMULARY PO SCH ×2 (09:14→20:51)
[2017-04-17] MEDS: NS IV SCH (10:09)
[2017-04-17] MEDS: GENTAMICIN IV SCH (10:09)
--- NOTE | 2017-04-17 12:32 | Progress Note (SOAP) ---
Subjective Date Seen by Provider: Apr 17, 2017 Time Seen by Provider: 12:29 Subjective/Events-last exam Fwup sepsis, RLL pneumonia, COPD, HTN, acute anemia, weakness. Not coughing as much. Up ambulating in halls and feeling little bit stronger. Review of Systems General: Fatigue Pulmonary: Cough Neurological: Weakness Objective Exam Vital Signs Date Time Temp Pulse Resp B/P (MAP) Pulse Ox O2 Delivery O2 Flow Rate FiO2 04/17/17 10:57 94 Nasal Cannula 3.00 04/17/17 07:09 93 Nasal Cannula 3.00 04/17/17 07:08 93 Nasal Cannula 3.00 04/17/17 07:06 93 Nasal Cannula 3.00 04/17/17 06:00 98.5 91 22 126/58 94 Nasal Cannula 4.00 04/17/17 02:15 96 Nasal Cannula 3.00 04/16/17 22:10 95 Nasal Cannula 3.00 04/16/17 21:00 Nasal Cannula 3.00 04/16/17 18:56 Nasal Cannula 3.00 04/16/17 18:51 95 Nasal Cannula 3.00 04/16/17 18:00 98.1 82 20 112/72 97 Nasal Cannula 4.00 04/16/17 14:37 96 Nasal Cannula 4.00 I & O 04/17/17 07:00 Intake Total 1900 ml Output Total 2125 ml Balance -225 ml Capillary Refill : General Appearance: No Apparent Distress Neck: Supple Respiratory: Crackles (right base), Decreased Breath Sounds, Wheezing Cardiovascular: Regular Rate, Rhythm, Systolic Murmur Gastrointestinal: normal bowel sounds, non tender, soft Extremity: Non Tender, No Calf Tenderness, No Pedal Edema Neurologic/Psychiatric: Alert, Oriented x3 Skin: Ecchymosis (right forearm) Results Lab Laboratory Tests 04/17/17 04:09: White Blood Count 8.4, Red Blood Count 3.06L, Hemoglobin 9.5L, Hematocrit 30L, Mean Corpuscular Volume 98, Mean Corpuscular Hemoglobin 31, Mean Corpuscular Hemoglobin Concent 32, Red Cell Distribution Width 12.2, Platelet Count 312, Mean Platelet Volume 9.1, Sodium Level 139, Potassium Level 3.8, Chloride Level 98, Carbon Dioxide Level 29, Anion Gap 12, Blood Urea Nitrogen 21H, Creatinine 1.02, Estimat Glomerular Filtration Rate 53, BUN/Creatinine Ratio 21, Glucose Level 94, Calcium Level 9.8, Magnesium Level 1.9 Assessment/Plan Assessment/Plan Assess & Plan/Chief Complaint 1. Enterococcal Sepsis--Continue Gentamicin, Clinically improving and WBC count down to 8.2, recheck CBC in 2 days 2. UTI with Corynebacterium--continue abx 3. RLL pneumonia--Continue meropenem with gentamicin, CXR in 2 days-- clinically improving 4. COPD--stable on home inhalers, oxygen and SVNs 5. Hypertension--stable on home meds 6. GERD--improving with pepcid at BID 7. Hypomagnesemia--Magnesium improved after replacement 8. Edema of lower legs--improved 9, Fatigue/Weakness--continue PT and OT MELODY MCGEE DO Apr 17, 2017 12:32
[2017-04-17] MEDS: CALCIUM CARBONATE 500 MG (TUMS) TAB.CHEW PO PRN (14:37)
[2017-04-17 17:55] VITALS: BP 129/61
[2017-04-17] MEDS: MIRTAZAPINE 15 MG (REMERON) TAB PO SCH (20:47)
[2017-04-17] MEDS: hydrOXYzine (ATARAX) 10 MG TAB PO SCH (20:47)
[2017-04-17] MEDS: ATORVASTATIN 20 MG (LIPITOR) TABLET PO SCH (20:48)
[2017-04-17] MEDS: ACETAMINOPHEN 325 MG TABLET/CAPLET (TYLENOL) PO PRN (20:48)
[2017-04-18] MEDS: RT-ALBUTEROL SULF 2.5 MG/3 ML PRE-MIX VIAL IH SCH ×6 (01:46→22:17)
[2017-04-18 05:35] VITALS: BP 114/64
[2017-04-18] MEDS: MEROPENEM 500 MG in NS (IVPB) 100 ML IV SCH ×3 (06:04→21:37)
[2017-04-18] MEDS: ACETAMINOPHEN 325 MG TABLET/CAPLET (TYLENOL) PO PRN ×2 (06:04→20:42)
[2017-04-18] MEDS: KCL 10 MEQ TAB (MICRO K) PO SCH (06:04)
[2017-04-18] MEDS: CALCIUM CARBONATE 500 MG (TUMS) TAB.CHEW PO PRN ×3 (06:41→21:37)
[2017-04-18] MEDS: UMECLIDINIUM BROMIDE (INCRUSE ELLIPTA) 7'S IH SCH (06:56)
[2017-04-18] MEDS: RT-ADVAIR HFA 115/21 MCG PER PUFF IH SCH ×2 (06:56→18:40)
[2017-04-18] MEDS: FUROSEMIDE 20 MG (LASIX) TAB PO SCH (09:00)
[2017-04-18] MEDS: ASPIRIN E.C. 81 MG (ECOTRIN) TAB PO SCH (09:00)
[2017-04-18] MEDS: DOCUSATE SODIUM 100 MG (COLACE) CAP PO SCH ×2 (09:00→20:41)
[2017-04-18] MEDS: ARTIFICAL TEARS 0.4 ML UNIT DOSE (REFRESH PLUS) OU SCH ×3 (09:00→20:42)
[2017-04-18] MEDS: LOSARTAN 50 MG (COZAAR) TAB PO SCH ×2 (09:00→20:41)
[2017-04-18] MEDS: DILTIAZEM 120 MG (CARDIZEM CD) CAP PO SCH (09:01)
[2017-04-18] MEDS: FAMOTIDINE 20 MG (PEPCID) TABLET PO SCH (09:01)
[2017-04-18] MEDS: DIGOXIN 0.125 MG (LANOXIN) TAB PO SCH (09:01)
[2017-04-18] MEDS: chlordiazePOXIDE 25 MG (LIBRIUM) CAP NON-FORMULARY PO SCH ×2 (09:02→20:41)
--- NOTE | 2017-04-18 12:16 | Progress Note (SOAP) ---
Subjective Date Seen by Provider: Apr 18, 2017 Time Seen by Provider: 12:15 Subjective/Events-last exam Fwup sepsis, RLL pneumonia, COPD, HTN, acute anemia, weakness. Not coughing as much. Up ambulating in halls farther today and feeling like getting stronger. Objective Exam Vital Signs Date Time Temp Pulse Resp B/P (MAP) Pulse Ox O2 Delivery O2 Flow Rate FiO2 04/18/17 10:55 92 Nasal Cannula 3.00 04/18/17 09:23 Nasal Cannula 3.00 04/18/17 07:02 95 04/18/17 06:59 95 Nasal Cannula 3.00 04/18/17 06:58 95 Nasal Cannula 3.00 04/18/17 06:56 95 Nasal Cannula 3.00 04/18/17 05:35 97.8 74 18 114/64 95 Nasal Cannula 4.00 04/18/17 01:46 93 Nasal Cannula 3.00 04/17/17 21:38 91 Nasal Cannula 3.00 04/17/17 21:00 Nasal Cannula 3.00 04/17/17 18:43 93 Nasal Cannula 3.00 04/17/17 18:36 93 Nasal Cannula 3.00 04/17/17 17:55 98.6 80 18 129/61 96 Nasal Cannula 4.00 04/17/17 14:40 93 Nasal Cannula 3.00 I & O 04/18/17 07:00 Intake Total 1708.75 ml Output Total 1825 ml Balance -116.25 ml Capillary Refill : Less Than 3 Seconds General Appearance: No Apparent Distress Neck: Supple Respiratory: Crackles (right base), Decreased Breath Sounds Cardiovascular: Regular Rate, Rhythm, Systolic Murmur Extremity: Non Tender, No Calf Tenderness, No Pedal Edema Neurologic/Psychiatric: Alert, Oriented x3 Skin: Ecchymosis (right forearm stable) Assessment/Plan Assessment/Plan Assess & Plan/Chief Complaint 1. Enterococcal Sepsis--Continue Gentamicin, Clinically improving, CBC in AM 2. UTI with Corynebacterium--continue abx 3. RLL pneumonia--Continue meropenem with gentamicin, CXR in AM--clinically improving 4. COPD--stable on home inhalers, oxygen and SVNs 5. Hypertension--stable on home meds 6. GERD--improving with pepcid at BID 7. Hypomagnesemia--Magnesium improved after replacement 8. Edema of lower legs--improved 9, Fatigue/Weakness--continue PT and OT MELODY MCGEE DO Apr 18, 2017 12:16 pm
[2017-04-18 17:30] VITALS: BP 130/61
[2017-04-18] MEDS: ATORVASTATIN 20 MG (LIPITOR) TABLET PO SCH (20:41)
[2017-04-18] MEDS: MIRTAZAPINE 15 MG (REMERON) TAB PO SCH (20:42)
[2017-04-18] MEDS: hydrOXYzine (ATARAX) 10 MG TAB PO SCH (20:42)
[2017-04-19] MEDS: RT-ALBUTEROL SULF 2.5 MG/3 ML PRE-MIX VIAL IH SCH ×6 (02:19→22:11)
[2017-04-19 05:26] VITALS: BP 128/59
[2017-04-19] MEDS: MEROPENEM 500 MG in NS (IVPB) 100 ML IV SCH ×3 (05:33→23:12)
[2017-04-19 05:55] LABS: BASOPHILS % (AUTO) 1 % (0-10); EOSINOPHILS # (AUTO) 0.3 10^3/uL (0.0-0.3); EOSINOPHILS % (AUTO) 7 % (0-10); LYMPHOCYTES # (AUTO) 1.3 X 10^3 (1.0-4.0); LYMPHOCYTES % (AUTO) 27 % (12-44); MEAN CORPUSCULAR HEMOGLOBIN 31 PG (25-34); MEAN CORPUSCULAR HGB CONC 31 G/DL (32-36); MEAN CORPUSCULAR VOLUME 99 FL (80-99); MEAN PLATELET VOLUME 8.5 FL (7.4-10.4); MONOCYTES # (AUTO) 0.8 X 10^3 (0.0-1.0); MONOCYTES % (AUTO) 17 % (0-12); NEUTROPHILS # (AUTO) 2.4 X 10^3 (1.8-7.8); NEUTROPHILS % (AUTO) 49 % (42-75); PLATELET COUNT 349 10^3/uL (130-400); RED BLOOD COUNT 2.94 10^6/uL (4.35-5.85); RED CELL DISTRIBUTION WIDTH 12.1 % (10.0-14.5); WHITE BLOOD COUNT 4.9 10^3/uL (4.3-11.0)
[2017-04-19 06:14] LABS: CALCIUM 9.7 MG/DL (8.5-10.1); CREATININE SERUM 1.1 MG/DL (0.60-1.30); POTASSIUM 4.1 MMOL/L (3.6-5.0)
[2017-04-19] MEDS: FAMOTIDINE 20 MG (PEPCID) TABLET PO SCH (08:37)
[2017-04-19] MEDS: ARTIFICAL TEARS 0.4 ML UNIT DOSE (REFRESH PLUS) OU SCH ×3 (08:37→21:40)
[2017-04-19] MEDS: DILTIAZEM 120 MG (CARDIZEM CD) CAP PO SCH (08:37)
[2017-04-19] MEDS: DOCUSATE SODIUM 100 MG (COLACE) CAP PO SCH ×2 (08:37→21:39)
[2017-04-19] MEDS: chlordiazePOXIDE 25 MG (LIBRIUM) CAP NON-FORMULARY PO SCH ×2 (08:38→21:39)
[2017-04-19] MEDS: DIGOXIN 0.125 MG (LANOXIN) TAB PO SCH (08:38)
[2017-04-19] MEDS: LOSARTAN 50 MG (COZAAR) TAB PO SCH ×2 (08:38→21:39)
[2017-04-19] MEDS: ASPIRIN E.C. 81 MG (ECOTRIN) TAB PO SCH (08:38)
--- NOTE | 2017-04-19 08:41 | Diagnostic Imaging Report ---
INDICATION: Pneumonia. TECHNIQUE: PA and lateral views of the chest were obtained. COMPARISON: 04/15/2017. FINDINGS: Similar to the previous study, the heart size and pulmonary vascularity remain within normal limits. There is air trapping and bilateral upper lobe scarring. The nodular focus in the left apex is stable. There is increasing density in the nodular focus in the right lower lobe. No pneumothorax or significant pleural fluid is identified. IMPRESSION: Extensive emphysema with bilateral pulmonary scarring. Increasing focal density in the right lung base is compatible with worsening pneumonia although radiographic followup is suggested to document complete resolution and exclude other underlying pathology. Dictated by: Dictated on workstation # [id number]
[2017-04-19] MEDS: GENTAMICIN IV SCH (10:48)
[2017-04-19] MEDS: NS IV SCH (10:48)
[2017-04-19] MEDS: RT-ADVAIR HFA 115/21 MCG PER PUFF IH SCH ×2 (11:50→18:54)
[2017-04-19] MEDS: UMECLIDINIUM BROMIDE (INCRUSE ELLIPTA) 7'S IH SCH (11:50)
[2017-04-19] MEDS ORDERED: LEVOFLOXACIN 500 MG/100 ML IV 100 ML IV SCH (15:30)
--- NOTE | 2017-04-19 15:32 | Occupational Ther Daily Note ---
OT Current Status-Daily Note Subjective Pt alert, lying in bed. Per nrsg notes pt is ad ronaldo for hygiene. Per pt, pt is taking herself to the bathroom. Pt agreed to therapy. No c/o pain at this time. Mental Status/Objective Patient Orientation: Person, Place, Time, Situation Functional [place] Measure 0=Not Assessed/NA 4=Minimal Assistance 1=Total Assistance 5=Supervision or Setup 2=Maximal Assistance 6=Modified [place] 3=Moderate Assistance 7=Complete [place] Attachments: IV, Oxygen ADL-Treatment Functional [place] Measure 0=Not Assessed/NA 4=Minimal Assistance 1=Total Assistance 5=Supervision or Setup 2=Maximal Assistance 6=Modified [place] 3=Moderate Assistance 7=Complete IndependenceIRFPAI Quality Coding Scale 6 Independent with activity with or without an assistive device 5 Patient requires set up or clean up by helper. Patient completes activity by themselves 4 Supervision or touching assist (CGA). [place] provide cues , steadying assist 3 The helper provides less than half the effort to complete the activity 2 The helper provides more than half the effort to complete the activity 1 Dependent. The helper does all the effort to complete an activity 7 Patient refused to complete or attempt activity 9 The patient did not perform the activity before the current illness or injury 88 Not attempted due to Medical conditions or safety concerns Other Treatment Pt demonstrates good understanding of UE exercises to increase strength to complete daily functional tasks. Pt then discussed with [place] home environment and what she does in the home. Pt has assist for vacuuming once every two weeks. Pt takes frequent breaks during other daily tasks and is aware of energy conservation techniques. After therapy, pt lying in bed, respiratory to give breathing treatment. Call light/phone in reach. All needs met in room. Education OT Patient Education: Energy conservation Teaching Recipient: Patient Teaching Methods: Discussion Response to Teaching: Verbalize Understanding OT Short Term Goals Short Term Goals 1=Demonstrate adherence to instructed precautions during ADL tasks. 2=Patient will verbalize/demonstrate understanding of assistive devices/ modifications for ADL. 3=Patient will improve strength/tolerance for activity to enable patient to perform ADL's. OT Alf Goals [place] Manager Goals Time Frame: Apr 29, 2017 Eating (FIM): 6 Eating (QC): 6 Groomin Oral Hygiene (QC): 6 Bathing(FIM): 5 Upper Body Dressing(FIM): 6 Lower Body Dressing(FIM): 6 Toileting(FIM): 6 Toileting Hygiene (QC): 6 Transfers (B,C,W/C) (FIM): 6 Toilet/Commode Transfer(FIM): 6 Toilet/Commode Transfer (QC): 6 Shower Transfer(FIM): 5 Additional Goals: 1-Demonstrate ADL Tasks, 2-Verbalize Understanding, 3- ImproveStrength/[place] 1=Demonstrate adherence to instructed precautions during ADL tasks. 2=Patient will verbalize/demonstrate understanding of assistive devices/ modifications for ADL. 3=Patient will improve strength/tolerance for activity to enable patient to perform ADL's. OT Education/Plan Problem List/Assessment Pt. fatigues very easily during treatment. Requires frequent rest breaks. Discharge Recommendations Plan/Recommendations: Continue POC Treatment Plan/Plan of Care Patient would benefit from OT for education, treatment and training to promote independence in ADL's, mobility, safety and/or upper extremity function for ADL' s. Plan of Care: ADL Retraining, Functional Mobility, UE Funct Exercise/Act Treatment Duration: Apr 29, 2017 Visits Per Week: 5-6 Rehab Potential: Good Time/GCodes Start Time: 14:45 Stop Time: 15:00 Total Time Billed (hr/min): 15 Billed Treatment Time 1 visit-FA 1 (15 min) JO ANN LUNA Apr 19, 2017 15:32
--- NOTE | 2017-04-19 15:33 | Progress Note (SOAP) ---
Subjective Date Seen by Provider: Apr 19, 2017 (n) Time Seen by Provider: 15:26 Review of Systems General: Fatigue HEENT: No Head Aches, No Visual Changes, No Eye Pain, No Ear Pain, No Dysphasia , No Sinus Congestion, No Post Nasal Drip, No Sore Throat, No Other Pulmonary: Dyspnea Cardiovascular: No: Chest Pain, Edema, Lt Headedness, Orthopnea, Other, Palpitations, Paroxysmal Noc. Dyspnea Gastrointestinal: No: Abdominal Pain, Constipation, Diarrhea, Hematochezia, Melena, Nausea, Other, Vomiting Genitourinary: No Dysuria, No Frequency, No Incontinence, No Hematuria, No Retention, No Other Musculoskeletal: No: arm pain, back pain, foot pain, hand pain, leg pain, neck pain, other, shoulder pain Neurological: Weakness Objective Exam Vital Signs Date Time Temp Pulse Resp B/P (MAP) Pulse Ox O2 Delivery O2 Flow Rate FiO2 04/19/17 14:56 94 Nasal Cannula 3.00 04/19/17 11:48 93 Nasal Cannula 3.00 04/19/17 09:00 Nasal Cannula 3.00 04/19/17 05:26 98.9 78 18 128/59 93 Nasal Cannula 4.00 04/19/17 02:19 97 Nasal Cannula 3.00 04/18/17 22:17 96 Nasal Cannula 3.00 04/18/17 20:55 Nasal Cannula 3.00 04/18/17 20:42 99.8 04/18/17 18:44 Nasal Cannula 3.00 04/18/17 18:41 94 Nasal Cannula 3.00 04/18/17 17:30 99.5 84 18 130/61 98 Nasal Cannula 4.00 I & O 04/19/17 07:00 Intake Total 3190 ml Output Total 2900 ml Balance 290 ml Capillary Refill : Less Than 3 Seconds General Appearance: No Apparent Distress HEENT: No PERRL/EOMI, No TMs Normal, No Normal ENT Inspection, No Pharynx Normal, No Pale Conjunctivae (L), No Pale Conjunctivae (R), No Pharyngeal Erythema, No Photophobia, No Scleral Icterus (L), No Scleral Icterus (R), No TM Abnormal (L), No TM Abnormal (R), No Tonsillar Exudate, No Tonsillar Enlargement , No Other Neck: Full Range of Motion, Supple Respiratory: Crackles (RLL & Lt mid lung), Wheezing (expiratory) Cardiovascular: Regular Rate, Rhythm Extremity: No Pedal Edema, Pedal Edema Neurologic/Psychiatric: Alert, Oriented x3 Skin: Normal Color, Warm/Dry Results Lab Laboratory Tests 04/19/17 05:25: White Blood Count 4.9, Red Blood Count 2.94L, Hemoglobin 9.1L, Hematocrit 29L, Mean Corpuscular Volume 99, Mean Corpuscular Hemoglobin 31, Mean Corpuscular Hemoglobin Concent 31L, Red Cell Distribution Width 12.1, Platelet Count 349, Mean Platelet Volume 8.5, Neutrophils (%) (Auto) 49, Lymphocytes (%) (Auto) 27, Monocytes (%) (Auto) 17H, Eosinophils (%) (Auto) 7, Basophils (%) (Auto) 1, Neutrophils # (Auto) 2.4, Lymphocytes # (Auto) 1.3, Monocytes # (Auto) 0.8, Eosinophils # (Auto) 0.3, Basophils # (Auto) 0.0, Sodium Level 142, Potassium Level 4.1, Chloride Level 101, Carbon Dioxide Level 35H, Anion Gap 6, Blood Urea Nitrogen 26H, Creatinine 1.10, Estimat Glomerular Filtration Rate 48, BUN/ Creatinine Ratio 24, Glucose Level 91, Calcium Level 9.7 Assessment/Plan Assessment/Plan Assess & Plan/Chief Complaint 1. Enterococcal Sepsis--Continue Gentamicin; add levaquin 500mg q24h 2. UTI with Corynebacterium--continue abx 3. RLL pneumonia--Continue meropenem with gentamicin, add levaquin d/t worsening CXR and new [place] crackles 4. COPD--stable on home inhalers, oxygen and SVNs 5. Hypertension--stable on home meds 6. GERD--improving with pepcid at BID 7. Hypomagnesemia--Magnesium improved after replacement 8. Edema of lower legs--improved 9, Fatigue/Weakness--continue PT and OT MELODY MCGEE DO Apr 19, 2017 15:33
[2017-04-19] MEDS: LEVOFLOXACIN 750 MG/150 ML IV 150 ML IV SCH (17:07)
[2017-04-19 18:59] VITALS: BP 118/69
[2017-04-19 21:38] VITALS: BP 126/68
[2017-04-19] MEDS: hydrOXYzine (ATARAX) 10 MG TAB PO SCH (21:39)
[2017-04-19] MEDS: ATORVASTATIN 20 MG (LIPITOR) TABLET PO SCH (21:40)
[2017-04-19] MEDS: MIRTAZAPINE 15 MG (REMERON) TAB PO SCH (21:40)
[2017-04-20] MEDS: RT-ALBUTEROL SULF 2.5 MG/3 ML PRE-MIX VIAL IH SCH ×6 (02:22→22:28)
[2017-04-20 06:00] VITALS: BP 116/62
[2017-04-20] MEDS: KCL 10 MEQ TAB (MICRO K) PO SCH (06:24)
[2017-04-20] MEDS: MEROPENEM 500 MG in NS (IVPB) 100 ML IV SCH ×3 (06:25→21:02)
[2017-04-20] MEDS: UMECLIDINIUM BROMIDE (INCRUSE ELLIPTA) 7'S IH SCH (06:34)
[2017-04-20] MEDS: RT-ADVAIR HFA 115/21 MCG PER PUFF IH SCH ×2 (06:35→19:03)
[2017-04-20] MEDS: CALCIUM CARBONATE 500 MG (TUMS) TAB.CHEW PO PRN (06:45)
[2017-04-20] MEDS: DIGOXIN 0.125 MG (LANOXIN) TAB PO SCH (10:09)
[2017-04-20] MEDS: chlordiazePOXIDE 25 MG (LIBRIUM) CAP NON-FORMULARY PO SCH ×2 (10:09→20:58)
[2017-04-20] MEDS: LOSARTAN 50 MG (COZAAR) TAB PO SCH ×2 (10:09→20:58)
[2017-04-20] MEDS: FUROSEMIDE 20 MG (LASIX) TAB PO SCH (10:10)
[2017-04-20] MEDS: FAMOTIDINE 20 MG (PEPCID) TABLET PO SCH (10:10)
[2017-04-20] MEDS: ARTIFICAL TEARS 0.4 ML UNIT DOSE (REFRESH PLUS) OU SCH ×3 (10:10→20:58)
[2017-04-20] MEDS: DOCUSATE SODIUM 100 MG (COLACE) CAP PO SCH ×2 (10:10→20:58)
[2017-04-20] MEDS: DILTIAZEM 120 MG (CARDIZEM CD) CAP PO SCH (10:10)
[2017-04-20] MEDS: ASPIRIN E.C. 81 MG (ECOTRIN) TAB PO SCH (10:10)
--- NOTE | 2017-04-20 11:34 | Occupational Ther Daily Note ---
OT Current Status-Daily Note Subjective Pt lying in bed and alert. Pt agreed to therapy. No c/o pain, reported fatigue. Pt stated she doesn't have any get up and go today. Mental Status/Objective Patient Orientation: Person, Place, Time, Situation Functional [place] Measure 0=Not Assessed/NA 4=Minimal Assistance 1=Total Assistance 5=Supervision or Setup 2=Maximal Assistance 6=Modified [place] 3=Moderate Assistance 7=Complete [place] Attachments: IV, Oxygen ADL-Treatment Pt states that she does not want to take a shower because she doesn't want to get cold. Pt did demonstrated ability to transfer into shower using grabbars. Pt states that she takes sponge bathe instead. Per nrsg notes, pt is up ad ronaldo and is independent with hygiene. Pt states that she uses the toilet by herself and has demonstrated ability to complete toilet transfer and toileting independently. Pt stands at sink to complete grooming. Pt fatigues easily and requires to take frequent breaks while completing daily tasks. Pt has demonstrated ability to maneuver around room with O2 tubing safely without AE. Pt is able to don/doff lower body clothing by self. Only wears hospital gowns for upper body. After therapy, pt lying in bed with call light/phone in reach. All needs met in room. Functional [place] Measure 0=Not Assessed/NA 4=Minimal Assistance 1=Total Assistance 5=Supervision or Setup 2=Maximal Assistance 6=Modified [place] 3=Moderate Assistance 7=Complete IndependenceIRFPAI Quality Coding Scale 6 Independent with activity with or without an assistive device 5 Patient requires set up or clean up by helper. Patient completes activity by themselves 4 Supervision or touching assist (CGA). [place] provide cues , steadying assist 3 The helper provides less than half the effort to complete the activity 2 The helper provides more than half the effort to complete the activity 1 Dependent. The helper does all the effort to complete an activity 7 Patient refused to complete or attempt activity 9 The patient did not perform the activity before the current illness or injury 88 Not attempted due to Medical conditions or safety concerns OT Short Term Goals Short Term Goals 1=Demonstrate adherence to instructed precautions during ADL tasks. 2=Patient will verbalize/demonstrate understanding of assistive devices/ modifications for ADL. 3=Patient will improve strength/tolerance for activity to enable patient to perform ADL's. OT Strike Plate Attacher Goals Strike Plate Attacher Goals Time Frame: Apr 29, 2017 Eating (FIM): 6 (met-04/20/2017) Eating (QC): 6 (met-04/20/2017) Groomin (Per nrsg and pt report: met-04/20/2017) Oral Hygiene (QC): 6 (met-04/20/2017) Bathing(FIM): 5 (Per nrsg and pt report: met-04/20/2017) Upper Body Dressing(FIM): 6 Lower Body Dressing(FIM): 6 (met-04/20/2017) Toileting(FIM): 6 (met-04/20/2017) Toileting Hygiene (QC): 6 (met-04/20/2017) Transfers (B,C,W/C) (FIM): 6 (met-04/20/2017) Toilet/Commode Transfer(FIM): 6 (met-04/20/2017) Toilet/Commode Transfer (QC): 6 (met-04/20/2017) Shower Transfer(FIM): 5 Additional Goals: 1-Demonstrate ADL Tasks, 2-Verbalize Understanding, 3- ImproveStrength/[place] 1=Demonstrate adherence to instructed precautions during ADL tasks. 2=Patient will verbalize/demonstrate understanding of assistive devices/ modifications for ADL. 3=Patient will improve strength/tolerance for activity to enable patient to perform ADL's. OT Education/Plan Problem List/Assessment Pt. fatigues very easily during treatment. Requires frequent rest breaks. Discharge Recommendations Plan/Recommendations: Continue POC Treatment Plan/Plan of Care Patient would benefit from OT for education, treatment and training to promote independence in ADL's, mobility, safety and/or upper extremity function for ADL' s. Plan of Care: ADL Retraining, Functional Mobility, UE Funct Exercise/Act Treatment Duration: Apr 29, 2017 Visits Per Week: 5-6 Rehab Potential: Good Time/GCodes Start Time: 10:50 Stop Time: 11:05 Total Time Billed (hr/min): 15 Billed Treatment Time 1 visit-FA 1 (15 min) JO ANN LUNA Apr 20, 2017 11:34
[2017-04-20 17:43] VITALS: BP 134/66
--- NOTE | 2017-04-20 19:28 | Progress Note (SOAP) ---
Subjective Date Seen by Provider: Apr 20, 2017 Time Seen by Provider: 08:45 Subjective/Events-last exam Fwup sepsis, UTI, pneumonia, COPD, HTN, acute anemia. Feeling a little bit better. Review of Systems General: Fatigue Pulmonary: Cough (improving) Neurological: Weakness Objective Exam Vital Signs Date Time Temp Pulse Resp B/P (MAP) Pulse Ox O2 Delivery O2 Flow Rate FiO2 04/20/17 19:03 95 Nasal Cannula 3.00 04/20/17 17:43 99.1 82 20 134/66 92 Nasal Cannula 3.50 04/20/17 14:35 91 Nasal Cannula 3.00 04/20/17 10:06 96 Nasal Cannula 3.00 04/20/17 08:00 Nasal Cannula 3.00 04/20/17 06:25 96 Nasal Cannula 3.00 04/20/17 06:00 98.0 79 18 116/62 97 Nasal Cannula 3.50 04/20/17 02:23 96 Nasal Cannula 2.00 04/19/17 22:11 93 Nasal Cannula 2.00 04/19/17 21:38 86 126/68 04/19/17 21:00 Nasal Cannula 3.00 I & O 04/20/17 07:00 Intake Total 2348.75 ml Output Total 1850 ml Balance 498.75 ml Capillary Refill : Less Than 3 Seconds General Appearance: No Apparent Distress Neck: Supple Respiratory: Crackles (right base), Decreased Breath Sounds, Wheezing ( occasional) Cardiovascular: Regular Rate, Rhythm, Systolic Murmur Gastrointestinal: normal bowel sounds, non tender, soft Extremity: Non Tender, No Calf Tenderness, No Pedal Edema Neurologic/Psychiatric: Alert, Oriented x3 Assessment/Plan Assessment/Plan Assess & Plan/Chief Complaint 1. Enterococcal Sepsis--Continue Gentamicin and levaquin 2. UTI with Corynebacterium--continue abx 3. RLL pneumonia--Continue meropenem with gentamicin, added levaquin d/t worsening CXR and new [place] crackles 4. COPD--stable on home inhalers, oxygen and SVNs 5. Hypertension--stable on home meds 6. GERD--improving with pepcid at BID 7. Hypomagnesemia--Magnesium improved after replacement 8. Edema of lower legs--improved 9, Fatigue/Weakness--continue PT and OT MELODY MCGEE DO Apr 20, 2017 7:28 pm
[2017-04-20] MEDS: MIRTAZAPINE 15 MG (REMERON) TAB PO SCH (20:58)
[2017-04-20] MEDS: hydrOXYzine (ATARAX) 10 MG TAB PO SCH (20:58)
[2017-04-20] MEDS: ATORVASTATIN 20 MG (LIPITOR) TABLET PO SCH (20:58)
[2017-04-21] MEDS: MEROPENEM 500 MG in NS (IVPB) 100 ML IV SCH ×3 (05:21→21:17)
[2017-04-21 06:00] VITALS: BP 130/61
[2017-04-21] MEDS: UMECLIDINIUM BROMIDE (INCRUSE ELLIPTA) 7'S IH SCH (07:36)
[2017-04-21] MEDS: RT-ADVAIR HFA 115/21 MCG PER PUFF IH SCH ×2 (07:36→18:26)
[2017-04-21] MEDS: RT-ALBUTEROL SULF 2.5 MG/3 ML PRE-MIX VIAL IH SCH ×5 (07:36→22:01)
[2017-04-21] MEDS: LOSARTAN 50 MG (COZAAR) TAB PO SCH ×2 (08:08→21:16)
[2017-04-21] MEDS: DIGOXIN 0.125 MG (LANOXIN) TAB PO SCH (08:08)
[2017-04-21] MEDS: DOCUSATE SODIUM 100 MG (COLACE) CAP PO SCH ×2 (08:08→21:16)
[2017-04-21] MEDS: ASPIRIN E.C. 81 MG (ECOTRIN) TAB PO SCH (08:08)
[2017-04-21] MEDS: DILTIAZEM 120 MG (CARDIZEM CD) CAP PO SCH (08:09)
[2017-04-21] MEDS: ARTIFICAL TEARS 0.4 ML UNIT DOSE (REFRESH PLUS) OU SCH ×3 (08:09→21:17)
[2017-04-21] MEDS: FAMOTIDINE 20 MG (PEPCID) TABLET PO SCH (08:09)
[2017-04-21] MEDS: chlordiazePOXIDE 25 MG (LIBRIUM) CAP NON-FORMULARY PO SCH ×2 (08:09→21:17)
[2017-04-21] MEDS ORDERED: GENTAMICIN IV SCH (11:00)
[2017-04-21] MEDS ORDERED: NS IV SCH (11:00)
--- NOTE | 2017-04-21 14:34 | Occupational Ther Daily Note ---
OT Current Status-Daily Note Subjective Pt. declines showering stating that she does her own bathing and dressing. Appearance Pt. in bed. Declines ADLs, as she does these on her own. Agrees to work with OT. Mental Status/Objective Functional [place] Measure 0=Not Assessed/NA 4=Minimal Assistance 1=Total Assistance 5=Supervision or Setup 2=Maximal Assistance 6=Modified [place] 3=Moderate Assistance 7=Complete [place] ADL-Treatment Functional [place] Measure 0=Not Assessed/NA 4=Minimal Assistance 1=Total Assistance 5=Supervision or Setup 2=Maximal Assistance 6=Modified [place] 3=Moderate Assistance 7=Complete IndependenceIRFPAI Quality Coding Scale 6 Independent with activity with or without an assistive device 5 Patient requires set up or clean up by helper. Patient completes activity by themselves 4 Supervision or touching assist (CGA). [place] provide cues , steadying assist 3 The helper provides less than half the effort to complete the activity 2 The helper provides more than half the effort to complete the activity 1 Dependent. The helper does all the effort to complete an activity 7 Patient refused to complete or attempt activity 9 The patient did not perform the activity before the current illness or injury 88 Not attempted due to Medical conditions or safety concerns Transfers (B, C, W/C) (FIM): 6 (Pt. is mod I to transfer with walker. Pt. ambulates approximately 60 feet with walker and oxygen management to increase overall endurance. Pt. takes several brief rest breaks, in which she stops to look outside window. Pt. declines UE exercises at this time, and states, "okay , now Im ready to go back.") Education OT Patient Education: Energy conservation, Progress toward Goal/Update tx plan , Transfer techniques Teaching Recipient: Patient Teaching Methods: Demonstration, Discussion Response to Teaching: Verbalize Understanding, Return Demonstration OT Short Term Goals Short Term Goals 1=Demonstrate adherence to instructed precautions during ADL tasks. 2=Patient will verbalize/demonstrate understanding of assistive devices/ modifications for ADL. 3=Patient will improve strength/tolerance for activity to enable patient to perform ADL's. OT [employer] Goals Correction Goals Time Frame: Apr 29, 2017 Eating (FIM): 6 (met-04/20/2017) Eating (QC): 6 (met-04/20/2017) Groomin (Per nrsg and pt report: met-04/20/2017) Oral Hygiene (QC): 6 (met-04/20/2017) Bathing(FIM): 5 (Per nrsg and pt report: met-04/20/2017) Upper Body Dressing(FIM): 6 Lower Body Dressing(FIM): 6 (met-04/20/2017) Toileting(FIM): 6 (met-04/20/2017) Toileting Hygiene (QC): 6 (met-04/20/2017) Transfers (B,C,W/C) (FIM): 6 (met-04/20/2017) Toilet/Commode Transfer(FIM): 6 (met-04/20/2017) Toilet/Commode Transfer (QC): 6 (met-04/20/2017) Shower Transfer(FIM): 5 Additional Goals: 1-Demonstrate ADL Tasks, 2-Verbalize Understanding, 3- ImproveStrength/[place] 1=Demonstrate adherence to instructed precautions during ADL tasks. 2=Patient will verbalize/demonstrate understanding of assistive devices/ modifications for ADL. 3=Patient will improve strength/tolerance for activity to enable patient to perform ADL's. OT Education/Plan Problem List/Assessment Assessment: Decreased Activ Tolerance Pt. fatigues very easily during treatment. Requires frequent rest breaks. Discharge Recommendations Plan/Recommendations: Continue POC Therapy D/C Recommendations: Home w/ Family Support Treatment Plan/Plan of Care Treatment,Training & Education: Yes Patient would benefit from OT for education, treatment and training to promote independence in ADL's, mobility, safety and/or upper extremity function for ADL' s. Plan of Care: ADL Retraining, Functional Mobility, UE Funct Exercise/Act Treatment Duration: Apr 29, 2017 Visits Per Week: 5-6 Rehab Potential: Good Time/GCodes Start Time: 08:30 Stop Time: 08:45 Total Time Billed (hr/min): 15 Billed Treatment Time 1, EX CHARITY JOYCE OT Apr 21, 2017 14:34
[2017-04-21] MEDS: LEVOFLOXACIN 750 MG/150 ML IV 150 ML IV SCH (16:31)
[2017-04-21 17:56] VITALS: BP 123/64
[2017-04-21] MEDS: CALCIUM CARBONATE 500 MG (TUMS) TAB.CHEW PO PRN (19:33)
[2017-04-21] MEDS ORDERED: TROUGH ORDER-PHARMACY XX ONE (21:00)
[2017-04-21] MEDS: ATORVASTATIN 20 MG (LIPITOR) TABLET PO SCH (21:16)
[2017-04-21] MEDS: hydrOXYzine (ATARAX) 10 MG TAB PO SCH (21:16)
[2017-04-21] MEDS: MIRTAZAPINE 15 MG (REMERON) TAB PO SCH (21:17)
--- NOTE | 2017-04-21 23:22 | Progress Note (SOAP) ---
Subjective Date Seen by Provider: Apr 21, 2017 Time Seen by Provider: 08:45 Subjective/Events-last exam Fwup sepsis, UTI, pneumonia, COPD, HTN, acute anemia. No new complaints. Review of Systems General: Fatigue Pulmonary: Cough Cardiovascular: No: Chest Pain, Edema, Lt Headedness, Orthopnea, Other, Palpitations, Paroxysmal Noc. Dyspnea Neurological: Weakness Objective Exam Vital Signs Date Time Temp Pulse Resp B/P (MAP) Pulse Ox O2 Delivery O2 Flow Rate FiO2 04/21/17 22:01 92 Nasal Cannula 2.00 04/21/17 19:45 Nasal Cannula 3.00 04/21/17 18:26 96 Nasal Cannula 2.00 04/21/17 17:56 98.3 86 20 123/64 95 Nasal Cannula 3.50 04/21/17 15:11 93 04/21/17 15:06 93 Nasal Cannula 2.00 04/21/17 10:45 92 Nasal Cannula 2.00 04/21/17 09:00 Nasal Cannula 3.00 04/21/17 07:36 92 Nasal Cannula 2.00 04/21/17 06:00 97.2 82 20 130/61 96 Nasal Cannula 3.50 I & O 04/21/17 07:00 Intake Total 2470 ml Output Total 2475 ml Balance -5 ml Capillary Refill : Less Than 3 Seconds General Appearance: No Apparent Distress Neck: Supple Respiratory: Crackles (right base), Decreased Breath Sounds Cardiovascular: Regular Rate, Rhythm, Systolic Murmur, Gallop/S4 Extremity: Non Tender, No Calf Tenderness, No Pedal Edema Neurologic/Psychiatric: Alert, Oriented x3 Results Lab Laboratory Tests 04/21/17 21:02: Random Gentamicin Level 11.5*H Assessment/Plan Assessment/Plan Assess & Plan/Chief Complaint 1. Enterococcal Sepsis--Continue Gentamicin and levaquin 2. UTI with Corynebacterium--continue abx 3. RLL pneumonia--Continue meropenem with gentamicin and levaquin, Check CXR in AM 4. COPD--stable on home inhalers, oxygen and SVNs 5. Hypertension--stable on home meds 6. GERD--improving with pepcid at BID 7. Hypomagnesemia--Magnesium improved after replacement, repeat in AM 8. Edema of lower legs--improved 9, Fatigue/Weakness--continue PT and OT 10. Acute Anemia--Check H/H in AM MELODY MCGEE DO Apr 21, 2017 23:22
[2017-04-22] MEDS: RT-ALBUTEROL SULF 2.5 MG/3 ML PRE-MIX VIAL IH SCH ×6 (02:27→22:12)
[2017-04-22 04:45] LABS: BASOPHILS % (AUTO) 0 % (0-10); EOSINOPHILS # (AUTO) 0.1 10^3/uL (0.0-0.3); EOSINOPHILS % (AUTO) 3 % (0-10); LYMPHOCYTES # (AUTO) 0.9 X 10^3 (1.0-4.0); LYMPHOCYTES % (AUTO) 27 % (12-44); MEAN CORPUSCULAR HEMOGLOBIN 31 PG (25-34); MEAN CORPUSCULAR HGB CONC 32 G/DL (32-36); MEAN CORPUSCULAR VOLUME 97 FL (80-99); MEAN PLATELET VOLUME 8.6 FL (7.4-10.4); MONOCYTES # (AUTO) 0.7 X 10^3 (0.0-1.0); MONOCYTES % (AUTO) 22 % (0-12); NEUTROPHILS # (AUTO) 1.6 X 10^3 (1.8-7.8); NEUTROPHILS % (AUTO) 48 % (42-75); PLATELET COUNT 358 10^3/uL (130-400); RED BLOOD COUNT 2.75 10^6/uL (4.35-5.85); RED CELL DISTRIBUTION WIDTH 11.6 % (10.0-14.5); WHITE BLOOD COUNT 3.4 10^3/uL (4.3-11.0)
[2017-04-22 05:25] LABS: BAND NEUTROPHILS 0 %; BASOPHILS % (MANUAL) 0 %; EOSINOPHILS % (MANUAL) 2 %; HYPOCHROMASIA SLIGHT; LYMPHOCYTES % (MANUAL) 24 %; MICROCYTOSIS SLIGHT; NEUTROPHILS % (MANUAL) 54 %; POIKILOCYTOSIS SLIGHT; REACTIVE LYMPHOCYTES 4 %
[2017-04-22] MEDS: MEROPENEM 500 MG in NS (IVPB) 100 ML IV SCH ×3 (05:31→21:55)
[2017-04-22 05:32] LABS: CALCIUM 8.7 MG/DL (8.5-10.1); CREATININE SERUM 1.24 MG/DL (0.60-1.30); ICTERUS 0.4 (0-1.9); MAGNESIUM 1.8 MG/DL (1.8-2.4)
[2017-04-22] MEDS: RT-ADVAIR HFA 115/21 MCG PER PUFF IH SCH ×2 (06:06→18:55)
[2017-04-22] MEDS: UMECLIDINIUM BROMIDE (INCRUSE ELLIPTA) 7'S IH SCH (06:09)
[2017-04-22] MEDS: KCL 10 MEQ TAB (MICRO K) PO SCH (06:11)
[2017-04-22 06:12] VITALS: BP 125/59
[2017-04-22] MEDS: ARTIFICAL TEARS 0.4 ML UNIT DOSE (REFRESH PLUS) OU SCH ×3 (08:52→21:55)
[2017-04-22] MEDS: ASPIRIN E.C. 81 MG (ECOTRIN) TAB PO SCH (08:52)
[2017-04-22] MEDS: FAMOTIDINE 20 MG (PEPCID) TABLET PO SCH (08:53)
[2017-04-22] MEDS: DIGOXIN 0.125 MG (LANOXIN) TAB PO SCH (08:53)
[2017-04-22] MEDS: DILTIAZEM 120 MG (CARDIZEM CD) CAP PO SCH (08:53)
[2017-04-22] MEDS: chlordiazePOXIDE 25 MG (LIBRIUM) CAP NON-FORMULARY PO SCH ×2 (08:53→22:52)
[2017-04-22] MEDS: FUROSEMIDE 20 MG (LASIX) TAB PO SCH (08:53)
[2017-04-22] MEDS: LOSARTAN 50 MG (COZAAR) TAB PO SCH ×2 (08:53→21:55)
[2017-04-22] MEDS: DOCUSATE SODIUM 100 MG (COLACE) CAP PO SCH ×2 (08:53→21:55)
--- NOTE | 2017-04-22 09:03 | Diagnostic Imaging Report ---
INDICATION: Pneumonia, followup. TECHNIQUE: 2-view chest 6:50 AM. CORRELATION STUDY: 01/07/2017; 04/19/2017. FINDINGS: Heart size and mediastinum generally stable. Lung [place] remain hyperinflated with changes of marked severity fibroemphysematous changes. Biapical lobe parenchymal densities left greater than right generally stable. More rounded nodular foci, left lung apex, unchanged. Additional slightly more nodular density in the central right lung stable as well. Continued rounded density in the right lower lobe is stable. There may be trace pleural effusions versus pleural thickening. Visualized osseous structures are unremarkable. IMPRESSION: 1. 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 Rounded foci likely superimposed right lower lobe pneumonia are present. 2. Biapical pleural-parenchymal thickening left greater than right appearing generally stable. Although this may be owing to an area of scarring, neoplasm does remain in the differential. Dictated by: Dictated on workstation # [id number]
--- NOTE | 2017-04-22 14:15 | Therapy Team Discharge Summary ---
Therapy Discharge Summary Discharge Recommendations Date of Discharge Therapy D/C Recommendations: Home w/ Family Support Occupational Therapy Pt. has been seen by occupational therapy to increase overall strength and independence. Pt. is now completing ADLs on her own with Mod I using walker for stability. Pt. is also ambulating on her own with walker and 02 management. Tolerates treatment well. No further OT needed at this time. Pt. has met all goals. Discharge from OT services. PT Intermediate Goals Intermediate Goals PT Intermediate Goals Time Frame: Apr 22, 2017 Transfers (B,C,W/C) (FIM): 7 (met 04/16/17) Sit to Lying (QC): 6 (met 04/16/17) Lying-Sitting on Side/Bed(QC): 6 (met 04/16/17) Sit to Stand (QC): 6 (met 04/16/17) Rollin (met 04/16/17) Chair/[id number] Xfer(QC): 6 (met 04/16/17) Does the Patient Walk: Yes Gait (FIM): 7 (met 04/16/17) Gait distance (FIM): 3=150 ft Walk 50ft with 2 Turns (QC): 6 (met 04/16/17) Walk 150 ft (QC): 6 (met 04/16/17) Gait Level of Assist: 7 (met 04/16/17) Gait Assistive Device: None OT Warehouse Puller Goals Warehouse Puller Goals Time Frame: Apr 29, 2017 Eating (FIM): 6 (met-04/20/2017) Eating (QC): 6 (met-04/20/2017) Groomin (Per nrsg and pt report: met-04/20/2017) Oral Hygiene (QC): 6 (met-04/20/2017) Bathing(FIM): 5 (Per nrsg and pt report: met-04/20/2017) Upper Body Dressing(FIM): 6 Lower Body Dressing(FIM): 6 (met-04/20/2017) Toileting(FIM): 6 (met-04/20/2017) Toileting Hygiene (QC): 6 (met-04/20/2017) Transfers (B,C,W/C) (FIM): 6 (met-04/20/2017) Toilet/Commode Transfer(FIM): 6 (met-04/20/2017) Toilet/Commode Transfer (QC): 6 (met-04/20/2017) Shower Transfer(FIM): 5 Additional Goals: 1-Demonstrate ADL Tasks, 2-Verbalize Understanding, 3- ImproveStrength/[place] 1=Demonstrate adherence to instructed precautions during ADL tasks. 2=Patient will verbalize/demonstrate understanding of assistive devices/ modifications for ADL. 3=Patient will improve strength/tolerance for activity to enable patient to perform ADL's. CHARITY JOYCE OT Apr 22, 2017 14:15
[2017-04-22 18:30] VITALS: BP 145/76
--- NOTE | 2017-04-22 20:05 | Progress Note (SOAP) ---
Subjective Date Seen by Provider: Apr 22, 2017 Time Seen by Provider: 20:03 Subjective/Events-last exam Fwup sepsis, UTI, pneumonia, COPD, HTN, acute anemia. Feeling tired today. Review of Systems General: Fatigue, Malaise Musculoskeletal: other (muscle cramps in ribs) Neurological: Weakness Objective Exam Vital Signs Date Time Temp Pulse Resp B/P (MAP) Pulse Ox O2 Delivery O2 Flow Rate FiO2 04/22/17 18:58 Nasal Cannula 2.00 04/22/17 18:55 93 Nasal Cannula 2.00 04/22/17 18:30 98.7 99 22 145/76 95 Nasal Cannula 2.50 04/22/17 14:19 92 Nasal Cannula 2.00 04/22/17 10:02 97 Nasal Cannula 2.00 04/22/17 09:00 Nasal Cannula 1.00 04/22/17 07:58 Nasal Cannula 3.00 04/22/17 06:12 98.5 94 18 125/59 97 Nasal Cannula 3.50 04/22/17 06:06 92 Nasal Cannula 2.00 04/22/17 02:27 96 Nasal Cannula 2.00 04/21/17 22:01 92 Nasal Cannula 2.00 I & O 04/22/17 07:00 Intake Total 2728.75 ml Output Total 1400 ml Balance 1328.75 ml Capillary Refill : Less Than 3 Seconds General Appearance: No Apparent Distress Respiratory: Crackles (right base decreased), Decreased Breath Sounds Cardiovascular: Regular Rate, Rhythm Gastrointestinal: normal bowel sounds, non tender, soft Extremity: Non Tender, No Calf Tenderness, No Pedal Edema Neurologic/Psychiatric: Alert, Oriented x3 Results Lab Laboratory Tests 04/21/17 21:02: Random Gentamicin Level 11.5*H 04/22/17 03:57: White Blood Count 3.4L, Red Blood Count 2.75L, Hemoglobin 8.5L, Hematocrit 27L, Mean Corpuscular Volume 97, Mean Corpuscular Hemoglobin 31, Mean Corpuscular Hemoglobin Concent 32, Red Cell Distribution Width 11.6, Platelet Count 358, Mean Platelet Volume 8.6, Neutrophils (%) (Auto) 48, Lymphocytes (%) (Auto) 27, Monocytes (%) (Auto) 22H, Eosinophils (%) (Auto) 3, Basophils (%) (Auto) 0, Neutrophils # (Auto) 1.6L, Lymphocytes # (Auto) 0.9L, Monocytes # (Auto) 0.7, Eosinophils # (Auto) 0.1, Basophils # (Auto) 0.0, Neutrophils % (Manual) 54, Lymphocytes % (Manual) 24, Monocytes % (Manual) 16, Eosinophils % (Manual) 2, Basophils % (Manual) 0, Band Neutrophils 0, Reactive Lymphocytes 4, Hypochromasia SLIGHT, Poikilocytosis SLIGHT, Microcytosis SLIGHT, Sodium Level 139, Potassium Level 4.0, Chloride Level 102, Carbon Dioxide Level 28, Anion Gap 9, Blood Urea Nitrogen 19H, Creatinine 1.24, Estimat Glomerular Filtration Rate 42, BUN/Creatinine Ratio 15, Glucose Level 94, Calcium Level 8.7, Magnesium Level 1.8 Assessment/Plan Assessment/Plan Assess & Plan/Chief Complaint 1. Enterococcal Sepsis--DC Gentamicin and levaquin 2. UTI with Corynebacterium--continue abx 3. RLL pneumonia--Continue meropenem and DC in AM, continue levaquin 4. COPD--stable on home inhalers, oxygen and SVNs 5. Hypertension--stable on home meds 6. GERD--improving with pepcid at BID 7. Hypomagnesemia--Magnesium improved after replacement 8. Edema of lower legs--improved 9, Fatigue/Weakness--continue PT and OT 10. Acute on Chronic Anemia--Check H/H in AM MELODY MCGEE DO Apr 22, 2017 8:05 pm
[2017-04-22] MEDS: MIRTAZAPINE 15 MG (REMERON) TAB PO SCH (21:54)
[2017-04-22] MEDS: hydrOXYzine (ATARAX) 10 MG TAB PO SCH (21:55)
[2017-04-22] MEDS: ATORVASTATIN 20 MG (LIPITOR) TABLET PO SCH (21:55)
[2017-04-22] MEDS: CALCIUM CARBONATE 500 MG (TUMS) TAB.CHEW PO PRN (22:55)
[2017-04-23] MEDS: MEROPENEM 500 MG in NS (IVPB) 100 ML IV SCH ×2 (00:35→08:02)
[2017-04-23] MEDS: RT-ALBUTEROL SULF 2.5 MG/3 ML PRE-MIX VIAL IH SCH ×6 (02:01→21:55)
[2017-04-23] MEDS: RT-ADVAIR HFA 115/21 MCG PER PUFF IH SCH ×2 (06:04→18:24)
[2017-04-23] MEDS: UMECLIDINIUM BROMIDE (INCRUSE ELLIPTA) 7'S IH SCH (06:09)
[2017-04-23 06:39] VITALS: BP 131/63
[2017-04-23 07:07] LABS: BASOPHILS % (AUTO) 1 % (0-10); EOSINOPHILS # (AUTO) 0.2 10^3/uL (0.0-0.3); EOSINOPHILS % (AUTO) 4 % (0-10); LYMPHOCYTES # (AUTO) 1.1 X 10^3 (1.0-4.0); LYMPHOCYTES % (AUTO) 28 % (12-44); MEAN CORPUSCULAR HEMOGLOBIN 31 PG (25-34); MEAN CORPUSCULAR HGB CONC 32 G/DL (32-36); MEAN CORPUSCULAR VOLUME 96 FL (80-99); MEAN PLATELET VOLUME 8.6 FL (7.4-10.4); MONOCYTES # (AUTO) 0.8 X 10^3 (0.0-1.0); MONOCYTES % (AUTO) 19 % (0-12); NEUTROPHILS # (AUTO) 1.9 X 10^3 (1.8-7.8); NEUTROPHILS % (AUTO) 48 % (42-75); PLATELET COUNT 378 10^3/uL (130-400); RED BLOOD COUNT 2.97 10^6/uL (4.35-5.85); RED CELL DISTRIBUTION WIDTH 11.8 % (10.0-14.5)
[2017-04-23] MEDS: DOCUSATE SODIUM 100 MG (COLACE) CAP PO SCH ×2 (08:42→20:18)
[2017-04-23] MEDS: FAMOTIDINE 20 MG (PEPCID) TABLET PO SCH (08:42)
[2017-04-23] MEDS: LOSARTAN 50 MG (COZAAR) TAB PO SCH ×2 (08:42→20:18)
[2017-04-23] MEDS: ARTIFICAL TEARS 0.4 ML UNIT DOSE (REFRESH PLUS) OU SCH ×3 (08:42→20:18)
[2017-04-23] MEDS: DILTIAZEM 120 MG (CARDIZEM CD) CAP PO SCH (08:43)
[2017-04-23] MEDS: DIGOXIN 0.125 MG (LANOXIN) TAB PO SCH (08:43)
[2017-04-23] MEDS: chlordiazePOXIDE 25 MG (LIBRIUM) CAP NON-FORMULARY PO SCH ×2 (08:54→20:17)
[2017-04-23] MEDS: LEVOFLOXACIN 750 MG/150 ML IV 150 ML IV SCH (15:13)
[2017-04-23 16:00] VITALS: BP 136/63
[2017-04-23] MEDS: ATORVASTATIN 20 MG (LIPITOR) TABLET PO SCH (20:18)
[2017-04-23] MEDS: MIRTAZAPINE 15 MG (REMERON) TAB PO SCH (20:18)
[2017-04-23] MEDS: hydrOXYzine (ATARAX) 10 MG TAB PO SCH (20:18)
[2017-04-23] MEDS: MENTHOL/ZINC OXIDE (CALMOSEPTINE) 113 GM TUBE TOP SCH (20:19)
[2017-04-24] MEDS: RT-ALBUTEROL SULF 2.5 MG/3 ML PRE-MIX VIAL IH SCH ×3 (01:49→10:25)
[2017-04-24 05:30] VITALS: BP 114/57
[2017-04-24] MEDS: KCL 10 MEQ TAB (MICRO K) PO SCH (06:02)
[2017-04-24] MEDS: RT-ADVAIR HFA 115/21 MCG PER PUFF IH SCH ×2 (06:31→19:12)
[2017-04-24] MEDS: UMECLIDINIUM BROMIDE (INCRUSE ELLIPTA) 7'S IH SCH (06:31)
[2017-04-24] MEDS: DILTIAZEM 120 MG (CARDIZEM CD) CAP PO SCH (08:53)
[2017-04-24] MEDS: DOCUSATE SODIUM 100 MG (COLACE) CAP PO SCH ×2 (08:53→20:38)
[2017-04-24] MEDS: FAMOTIDINE 20 MG (PEPCID) TABLET PO SCH (08:53)
[2017-04-24] MEDS: LOSARTAN 50 MG (COZAAR) TAB PO SCH ×2 (08:53→20:37)
[2017-04-24] MEDS: ARTIFICAL TEARS 0.4 ML UNIT DOSE (REFRESH PLUS) OU SCH ×3 (08:54→20:38)
[2017-04-24] MEDS: chlordiazePOXIDE 25 MG (LIBRIUM) CAP NON-FORMULARY PO SCH ×2 (08:54→20:50)
[2017-04-24] MEDS: DIGOXIN 0.125 MG (LANOXIN) TAB PO SCH (08:54)
[2017-04-24] MEDS: FUROSEMIDE 20 MG (LASIX) TAB PO SCH (08:54)
[2017-04-24] MEDS: MENTHOL/ZINC OXIDE (CALMOSEPTINE) 113 GM TUBE TOP SCH ×2 (08:56→20:39)
--- NOTE | 2017-04-24 09:14 | Progress Note (SOAP) ---
Subjective Time Seen by Provider: 09:00 Subjective/Events-last exam patient states she feels better today. Patient states she gained 5 pounds. Sepsis. UTI. Pneumonia. COPD>Hypertension Objective Exam Vital Signs Date Time Temp Pulse Resp B/P (MAP) Pulse Ox O2 Delivery O2 Flow Rate FiO2 04/24/17 06:32 94 Nasal Cannula 2.00 04/24/17 05:30 98.1 87 16 114/57 94 Nasal Cannula 2.50 04/24/17 01:50 96 Nasal Cannula 2.00 04/23/17 21:55 94 Nasal Cannula 2.00 04/23/17 19:40 92 Nasal Cannula 2.00 04/23/17 18:31 Nasal Cannula 2.00 04/23/17 18:24 92 Nasal Cannula 2.00 04/23/17 16:00 99.0 79 24 136/63 98 Nasal Cannula 2.50 04/23/17 13:47 98 Nasal Cannula 2.00 04/23/17 09:59 99 Nasal Cannula 2.00 04/23/17 09:30 Nasal Cannula 2.50 I & O 04/24/17 07:00 Intake Total 1930 ml Output Total 1350 ml Balance 580 ml Capillary Refill : Less Than 3 Seconds General Appearance: No Apparent Distress, WD/WN HEENT: Normal ENT Inspection Neck: Normal Inspection Respiratory: No Accessory Muscle Use, No Respiratory Distress, Decreased Breath Sounds Cardiovascular: Regular Rate, Rhythm Assessment/Plan Assessment/Plan Assess & Plan/Chief Complaint pneumonia. UTI. Sepsis. COPD. Hypertension CAMMY MEDRANO DO Apr 24, 2017 09:14
[2017-04-24] MEDS: RT-ALBUTEROL/IPRATROPIUM 3 ML (DUONEB) VIAL INH SCH ×2 (14:51→19:00)
[2017-04-24] MEDS ORDERED: SENNA W/DOCUSATE (SENOKOT S) TABLET PO PRN (17:30)
[2017-04-24 18:50] VITALS: BP 163/77
[2017-04-24 19:10] VITALS: BP 163/77
[2017-04-24] MEDS: RT-ALBUTEROL SULF 2.5 MG/3 ML PRE-MIX VIAL IH PRN (19:12)
[2017-04-24] MEDS: hydrOXYzine (ATARAX) 10 MG TAB PO SCH (20:38)
[2017-04-24] MEDS: ACETAMINOPHEN 325 MG TABLET/CAPLET (TYLENOL) PO PRN (20:38)
[2017-04-24] MEDS: ATORVASTATIN 20 MG (LIPITOR) TABLET PO SCH (20:38)
[2017-04-24] MEDS: MIRTAZAPINE 15 MG (REMERON) TAB PO SCH (20:38)
[2017-04-24 22:08] VITALS: BP 146/70
[2017-04-25] MEDS: RT-ALBUTEROL SULF 2.5 MG/3 ML PRE-MIX VIAL IH PRN (02:39)
[2017-04-25 05:10] LABS: BASOPHILS % (AUTO) 0 % (0-10); EOSINOPHILS # (AUTO) 0.2 10^3/uL (0.0-0.3); EOSINOPHILS % (AUTO) 5 % (0-10); LYMPHOCYTES # (AUTO) 1.4 X 10^3 (1.0-4.0); LYMPHOCYTES % (AUTO) 30 % (12-44); MEAN CORPUSCULAR HEMOGLOBIN 31 PG (25-34); MEAN CORPUSCULAR HGB CONC 33 G/DL (32-36); MEAN CORPUSCULAR VOLUME 94 FL (80-99); MEAN PLATELET VOLUME 8.8 FL (7.4-10.4); MONOCYTES # (AUTO) 0.9 X 10^3 (0.0-1.0); MONOCYTES % (AUTO) 20 % (0-12); NEUTROPHILS % (AUTO) 44 % (42-75); PLATELET COUNT 332 10^3/uL (130-400); RED BLOOD COUNT 2.89 10^6/uL (4.35-5.85); RED CELL DISTRIBUTION WIDTH 11.5 % (10.0-14.5); WHITE BLOOD COUNT 4.5 10^3/uL (4.3-11.0)
[2017-04-25 05:36] LABS: ALBUMIN 2.6 GM/DL (3.2-4.5); BILIRUBIN,TOTAL 0.3 MG/DL (0.1-1.0); CALCIUM 8.6 MG/DL (8.5-10.1); CREATININE SERUM 1.43 MG/DL (0.60-1.30); ICTERUS 0.4 (-100-1.9); MAGNESIUM 2.1 MG/DL (1.8-2.4); POTASSIUM 4.5 MMOL/L (3.6-5.0); TOTAL PROTEIN 5.7 GM/DL (6.4-8.2)
[2017-04-25 06:00] VITALS: BP 119/60
[2017-04-25] MEDS: RT-ADVAIR HFA 115/21 MCG PER PUFF IH SCH ×2 (06:42→19:07)
[2017-04-25] MEDS: UMECLIDINIUM BROMIDE (INCRUSE ELLIPTA) 7'S IH SCH (06:42)
[2017-04-25] MEDS ORDERED: RT-ALBUTEROL SULF 2.5 MG/3 ML PRE-MIX VIAL IH SCH (07:00)
--- NOTE | 2017-04-25 07:45 | Progress Note (SOAP) ---
Subjective Time Seen by Provider: 07:33 Subjective/Events-last exam patient states she's feeling better and breathing better. Pneumonia. UTI. Renal insufficiency. COPD. Hypertension. Patient have a chest x-ray today Objective Exam Vital Signs Date Time Temp Pulse Resp B/P (MAP) Pulse Ox O2 Delivery O2 Flow Rate FiO2 04/25/17 06:57 95 04/25/17 06:46 95 Nasal Cannula 2.00 04/25/17 06:00 98.6 82 20 119/60 95 Nasal Cannula 2.50 04/25/17 02:39 92 Nasal Cannula 2.00 04/24/17 22:08 99.8 146/70 04/24/17 22:00 99.8 04/24/17 20:38 100.3 04/24/17 19:50 96 Nasal Cannula 2.00 04/24/17 19:21 Nasal Cannula 2.00 04/24/17 19:13 96 Nasal Cannula 2.00 04/24/17 18:50 100.4 89 20 163/77 96 Nasal Cannula 2.50 04/24/17 14:51 96 Nasal Cannula 2.00 04/24/17 14:11 93 04/24/17 10:26 96 Nasal Cannula 2.00 04/24/17 08:00 96 Nasal Cannula 2.00 I & O 04/25/17 07:00 Intake Total 1190 ml Output Total 1150 ml Balance 40 ml Capillary Refill : Less Than 3 Seconds General Appearance: No Apparent Distress, WD/WN HEENT: Normal ENT Inspection Neck: Full Range of Motion, Normal Inspection Respiratory: Chest Non Tender, No Accessory Muscle Use, No Respiratory Distress , Decreased Breath Sounds, Other (slight wheeze) Cardiovascular: Regular Rate, Rhythm Gastrointestinal: non tender, soft Results Lab Laboratory Tests 04/25/17 04:23 Laboratory Tests 04/25/17 04:23: White Blood Count 4.5, Red Blood Count 2.89L, Hemoglobin 8.9L, Hematocrit 27L, Mean Corpuscular Volume 94, Mean Corpuscular Hemoglobin 31, Mean Corpuscular Hemoglobin Concent 33, Red Cell Distribution Width 11.5, Platelet Count 332, Mean Platelet Volume 8.8, Neutrophils (%) (Auto) 44, Lymphocytes (%) (Auto) 30, Monocytes (%) (Auto) 20H, Eosinophils (%) (Auto) 5, Basophils (%) (Auto) 0, Neutrophils # (Auto) 2.0, Lymphocytes # (Auto) 1.4, Monocytes # (Auto) 0.9, Eosinophils # (Auto) 0.2, Basophils # (Auto) 0.0, Sodium Level 136, Potassium Level 4.5, Chloride Level 100, Carbon Dioxide Level 27, Anion Gap 9, Blood Urea Nitrogen 23H, Creatinine 1.43H, Estimat Glomerular Filtration Rate 36, BUN/ Creatinine Ratio 16, Glucose Level 94, Calcium Level 8.6, Magnesium Level 2.1, Total Bilirubin 0.3, Aspartate Amino Transf (AST/SGOT) 23, Alanine Aminotransferase (ALT/SGPT) 14, Alkaline Phosphatase 62, B-Type Natriuretic Peptide 113.0H, Total Protein 5.7L, Albumin 2.6L Assessment/Plan Assessment/Plan Assess & Plan/Chief Complaint pneumonia. UTI. Sepsis. COPD. Hypertension. . 04/25/17 . Swing bed. Pneumonia. Renal insufficiency. UTI. COPD. Hypertension CAMMY MEDRANO DO Apr 25, 2017 07:45
[2017-04-25] MEDS: DIGOXIN 0.125 MG (LANOXIN) TAB PO SCH (08:35)
[2017-04-25] MEDS: FAMOTIDINE 20 MG (PEPCID) TABLET PO SCH (08:36)
[2017-04-25] MEDS: DILTIAZEM 120 MG (CARDIZEM CD) CAP PO SCH (08:36)
[2017-04-25] MEDS: DOCUSATE SODIUM 100 MG (COLACE) CAP PO SCH ×2 (08:36→20:30)
[2017-04-25] MEDS: LOSARTAN 50 MG (COZAAR) TAB PO SCH ×2 (08:36→20:29)
[2017-04-25] MEDS: ARTIFICAL TEARS 0.4 ML UNIT DOSE (REFRESH PLUS) OU SCH ×3 (08:36→20:29)
[2017-04-25] MEDS: chlordiazePOXIDE 25 MG (LIBRIUM) CAP NON-FORMULARY PO SCH ×2 (08:37→20:29)
[2017-04-25] MEDS: MENTHOL/ZINC OXIDE (CALMOSEPTINE) 113 GM TUBE TOP SCH ×2 (08:38→20:32)
[2017-04-25 09:59] LABS: BILIRUBIN,URINE NEGATIVE (NEGATIVE); KETONES,URINE NEGATIVE (NEGATIVE); LEUKOCYTE ESTERASE ,URINE 1+ (NEGATIVE); NITRITE,URINE NEGATIVE (NEGATIVE); PH,URINE 6 (5-9); PROTEIN,URINE 3+ (NEGATIVE); UROBILINOGEN,URINE NORMAL (NORMAL)
[2017-04-25] MEDS: RT-ALBUTEROL SULF 2.5 MG/3 ML PRE-MIX VIAL IH SCH ×4 (10:26→21:47)
--- NOTE | 2017-04-25 10:56 | Diagnostic Imaging Report ---
INDICATION: Pneumonia. TECHNIQUE: Two view chest 8:13 AM CORRELATION STUDY: 04/22/2017 FINDINGS: Rounded infiltrative-type density about the right lower lobe persisting perhaps slightly larger. This has a somewhat irregular appearance. Irregular parenchymal density of the left upper lobe unchanged with additional areas of biapical pleural-parenchymal thickening. Additional linear scarring about the right upper lobe. Blunting of the costophrenic angles could reflect trace pleural effusions. Heart size and mediastinum unremarkable. Visualized osseous structures are unremarkable. IMPRESSION: 1. Irregular parenchymal density of the right lower lobe persisting but perhaps slightly increased. This may be reflective of a rounded area of pneumonia, continued followup imaging until complete resolution recommended. 2. Additional irregular spiculated parenchymal density of the left upper lung field as well as additional areas of scarring are unchanged. Dictated by: Dictated on workstation # [id number]
[2017-04-25] MEDS: CALCIUM CARBONATE 500 MG (TUMS) TAB.CHEW PO PRN ×2 (12:59→19:37)
[2017-04-25] MEDS: LEVOFLOXACIN 750 MG/150 ML IV 150 ML IV SCH (16:26)
[2017-04-25 18:55] VITALS: BP 154/62
[2017-04-25] MEDS: ATORVASTATIN 20 MG (LIPITOR) TABLET PO SCH (20:29)
[2017-04-25] MEDS: MIRTAZAPINE 15 MG (REMERON) TAB PO SCH (20:29)
[2017-04-25] MEDS: hydrOXYzine (ATARAX) 10 MG TAB PO SCH (20:29)
[2017-04-26] MEDS: RT-ALBUTEROL SULF 2.5 MG/3 ML PRE-MIX VIAL IH SCH ×3 (01:46→10:08)
[2017-04-26 05:14] LABS: MEAN PLATELET VOLUME 9.1 FL (7.4-10.4); RED BLOOD COUNT 2.61 10^6/uL (4.35-5.85); RED CELL DISTRIBUTION WIDTH 11.4 % (10.0-14.5); WHITE BLOOD COUNT 4.5 10^3/uL (4.3-11.0)
[2017-04-26 05:39] LABS: CALCIUM 8.6 MG/DL (8.5-10.1); CREATININE SERUM 1.48 MG/DL (0.60-1.30); ICTERUS 0.4 (-100-1.9); POTASSIUM 4.5 MMOL/L (3.6-5.0)
[2017-04-26 05:47] VITALS: BP 160/78
[2017-04-26] MEDS: KCL 10 MEQ TAB (MICRO K) PO SCH (06:17)
[2017-04-26] MEDS: RT-ADVAIR HFA 115/21 MCG PER PUFF IH SCH (06:28)
[2017-04-26] MEDS: UMECLIDINIUM BROMIDE (INCRUSE ELLIPTA) 7'S IH SCH (06:29)
[2017-04-26] MEDS ORDERED: KCL 10 MEQ TAB (MICRO K) PO NR (08:48)
[2017-04-26] MEDS ORDERED: FUROSEMIDE 40 MG/4 ML INJ (LASIX) IVP NR (08:48)
[2017-04-26] MEDS: DOCUSATE SODIUM 100 MG (COLACE) CAP PO SCH (08:59)
[2017-04-26] MEDS: chlordiazePOXIDE 25 MG (LIBRIUM) CAP NON-FORMULARY PO SCH (08:59)
[2017-04-26] MEDS: DIGOXIN 0.125 MG (LANOXIN) TAB PO SCH (09:00)
[2017-04-26] MEDS: CALCIUM CARBONATE 500 MG (TUMS) TAB.CHEW PO PRN (09:00)
[2017-04-26] MEDS: MENTHOL/ZINC OXIDE (CALMOSEPTINE) 113 GM TUBE TOP SCH (09:01)
[2017-04-26] MEDS: DILTIAZEM 120 MG (CARDIZEM CD) CAP PO SCH (09:01)
[2017-04-26] MEDS: FUROSEMIDE 20 MG (LASIX) TAB PO SCH (09:01)
[2017-04-26] MEDS: FAMOTIDINE 20 MG (PEPCID) TABLET PO SCH (09:01)
[2017-04-26] MEDS: LOSARTAN 50 MG (COZAAR) TAB PO SCH (09:01)
[2017-04-26] MEDS: ARTIFICAL TEARS 0.4 ML UNIT DOSE (REFRESH PLUS) OU SCH (09:02)
--- NOTE | 2017-04-26 09:24 | Discharge Inst-Simple/Standard ---
Discharge Inst-Standard Patient Instructions/Follow Up Plan of Care/Instructions/FU: Fwup 1 week Activity as Tolerated: Yes Discharge Diet: Low Sodium Diet MELODY MCGEE DO Apr 26, 2017 9:24 am
[2017-04-26 12:15] VITALS: BP 160/78
--- OUTSIDE RECORDS SUMMARY | 2017-04-26 13:24 | XMS REPORT | Continuity of Care Document ---
Author Author [facility] Organization [facility] Address Unknown Phone Unavailable Allergies Active Description Code Type Severity Reaction Onset Reported/Identified Relationship to Patient Clinical Status Yes diphenhydramine HCl [id number] Drug Allergy Severe anaphalaxis 09/10/2014 Yes prednisone [id number] Drug Allergy Moderate Large doses cau 09/10/2014 Yes fentanyl [id number] Drug Allergy Mild N/A 09/10/2014 Yes meperidine [id number] Drug Allergy Mild NAUSEA 09/10/2014 Yes midazolam [id number] Drug Allergy Mild PT TAKE LIBRIUM 09/10/2014 Yes propofol [id number] Drug Allergy Mild N/A 09/10/2014 Yes Beta-Blockers (Beta-Adrenergic Bloc [id number] Drug Allergy Unknown N/A 09/10/2014 Yes erythromycin base [id number] Drug Allergy Unknown MAKES PATIENT N 09/10/2014 Yes Penicillins [id number] Drug Allergy Unknown HAS REC AZACTAM 09/10/2014 Yes risedronic acid [id number] Drug Allergy Unknown N/A 09/10/2014 Yes Cephalosporins [id number] Drug Allergy Unknown HAS RECEIVED CE 09/14/2014 Medications Problems Date Dx Coded Attending Type Code Diagnosis Diagnosed By 10/07/1499 MARY PEREZ APRN Ot S81.811A LACERATION W/O FOREIGN BODY, RIGHT LOWER 10/07/1499 MARY PEREZ APRN Ot S81.812A LACERATION WITHOUT FOREIGN BODY, LEFT LO 10/07/1499 MARY PEREZ APRN Ot X58.XXXA EXPOSURE TO OTHER SPECIFIED FACTORS, INI 10/07/1499 MARY PEREZ APRN Ot Y99.8 OTHER EXTERNAL CAUSE STATUS 05/29/2011 Ot 562.10 DIVERTICULOSIS COLON (W/O MENT OF HEMORR 05/29/2011 Ot 564.00 UNSPEC CONSTIPATION 05/29/2011 Ot 569.0 ANAL RECTAL POLYP 05/29/2011 Ot V12.72 PERSONAL HISTORY OF COLONIC POLYPS 05/29/2011 Ot V76.51 SCREEN MAL NEOP-COLON 07/06/2012 Ot 272.4 HYPERLIPIDEMIA NEC/NOS 07/06/2012 Ot 285.9 ANEMIA NOS 07/06/2012 Ot 300.00 ANXIETY STATE NOS 07/06/2012 Ot 401.9 HYPERTENSION NOS 07/06/2012 Ot 428.0 CONGESTIVE HEART FAILURE NOS 07/06/2012 Ot 428.33 ACUTE CHRONIC DIASTOLIC HRT FAILURE 07/06/2012 Ot 458.9 HYPOTENSION NOS 07/06/2012 Ot 486 PNEUMONIA, ORGANISM NOS 07/06/2012 Ot 491.21 OBSTR CHRONIC BRONCHITIS, W (ACUTE) EXAC 07/06/2012 Ot 530.81 ESOPHAGEAL REFLUX 07/06/2012 Ot V15.82 HISTORY OF TOBACCO USE 07/13/2012 Ot 272.4 HYPERLIPIDEMIA NEC/NOS 07/13/2012 Ot 300.00 ANXIETY STATE NOS 07/13/2012 Ot 401.9 HYPERTENSION NOS 07/13/2012 Ot 428.0 CONGESTIVE HEART FAILURE NOS 07/13/2012 Ot 428.33 ACUTE CHRONIC DIASTOLIC HRT FAILURE 07/13/2012 Ot 486 PNEUMONIA, ORGANISM NOS 07/13/2012 Ot 491.21 OBSTR CHRONIC BRONCHITIS, W (ACUTE) EXAC 07/13/2012 Ot 530.81 ESOPHAGEAL REFLUX 07/13/2012 Ot 564.00 UNSPEC CONSTIPATION 07/13/2012 Ot V15.82 HISTORY OF TOBACCO USE 04/21/2013 JOE POTTER MD Ot 412 OLD MYOCARDIAL INFARCT 04/21/2013 JOE POTTER MD Ot 786.50 CHEST PAIN NOS 08/23/2014 JOE POTTER MD Ot 784.7 EPISTAXIS 09/14/2014 ELIZABETHNDER DO, MELODY S Ot 309.81 POSTTRAUMATIC STRESS DISORDER 09/14/2014 ELIZABETHNDER DO, MELODY S Ot 389.9 HEARING LOSS NOS 09/14/2014 ORENDER DO, MELODY S Ot 401.9 HYPERTENSION NOS 09/14/2014 ORENDER DO, MELODY S Ot 486 PNEUMONIA, ORGANISM NOS 09/14/2014 ORENDER DO, MELODY S Ot 491.21 OBSTR CHRONIC BRONCHITIS, W (ACUTE) EXAC 09/14/2014 ORENDER DO, MELODY S Ot 599.0 URIN TRACT INFECTION NOS 09/14/2014 ORENDER DO, MELODY S Ot 716.90 ARTHROPATHY NOS-UNSPEC 09/14/2014 ORENDER HARDIK BROOKSMELODY S Ot V15.82 HISTORY OF TOBACCO USE 09/17/2014 ELIZABETHNDER DO, MELODY S Ot 309.81 POSTTRAUMATIC STRESS DISORDER 09/17/2014 ELIZABETHNDER DO, MELODY S Ot 389.9 HEARING LOSS NOS 09/17/2014 ELIZABETHNDER DO, MELODY S Ot 401.9 HYPERTENSION NOS 09/17/2014 ELIZABETHNDER DO, MELODY S Ot 486 PNEUMONIA, ORGANISM NOS 09/17/2014 ELIZABETHNDER DO, MELODY S Ot 491.21 OBSTR CHRONIC BRONCHITIS, W (ACUTE) EXAC 09/17/2014 ELIZABETHNDER , MELODY S Ot 599.0 URIN TRACT INFECTION NOS 09/17/2014 ELIZABETHNDER , MELODY S Ot 716.90 ARTHROPATHY NOS-UNSPEC 09/17/2014 ELIZABETHNDER , MELODY S Ot V15.82 HISTORY OF TOBACCO USE 10/29/2014 GRAYSONER MELODY S Ot 786.09 10/29/2014 ARELY BROOKS MELODY S Ot 789.02 10/29/2014 ELIZABETHNDER , MELODY S Ot V12.61 11/07/2014 ELIZABETHNDER , MELODY S Ot 786.50 11/07/2014 ELIZABETHNDER , MELODY S Ot 793.19 02/19/2015 ELIZABETHNDER , MELODY S Ot 496 02/20/2015 ELIZBAETHNDER , MELODY S Ot 496 03/01/2015 ARELY MELODY S Ot 496 03/07/2015 GREGOR JOSEPH DO M Ot 496 03/07/2015 GREGOR JOSEPH DO M Ot 518.0 03/07/2015 GREGOR JOSEPH DO M Ot 786.09 04/06/2015 GREGOR JOSEPH DO M Ot 496 04/06/2015 GREGOR JOSEPH DO M Ot 518.0 04/06/2015 GREGOR JOSEPH DO M Ot 786.09 04/26/2015 GREGOR JOSEPH DO M Ot 496 04/26/2015 GREGOR JOSEPH DO M Ot 518.0 04/26/2015 GREGOR JOSEPH DO M Ot 786.09 05/30/2015 KEE DAMON Ot 272.4 05/30/2015 KEE DAMON GENERATION ENGINEER Ot V58.69 05/30/2015 ELIZABETHNDMELODY KEVIN DO S Ot 272.4 05/30/2015 ELIZABETHNDER JOVITA BROOKSLINE S Ot 593.9 05/30/2015 ELIZABETHNDER DOJOVITAMELODY S Ot 733.00 05/30/2015 ELIZABETHNDER DOJOVITAMELODY S Ot 780.79 07/09/2015 ELIZABETHND JOVITA BROOKSLINE S Ot 496 07/13/2015 ELIZABETHND DOJOVITAMELODY S Ot 401.9 HYPERTENSION NOS 07/13/2015 ELIZABETHND DOJOVITAMELODY S Ot 496 CHR AIRWAY OBSTRUCT NEC 07/13/2015 JOVITA MCGEE DOLINE S Ot 564.00 UNSPEC CONSTIPATION 07/13/2015 JOVITA MCGEE DOLINE S Ot 787.3 FLATUL/ERUCTAT/GAS PAIN 07/18/2015 Ot 428.0 07/18/2015 Ot 496 07/18/2015 Ot 518.0 07/18/2015 Ot V46.2 07/18/2015 Ot 428.0 07/18/2015 Ot 496 07/18/2015 Ot 518.0 07/18/2015 Ot V46.2 07/18/2015 GRAYSON MELODY BROOKS S Ot 496 07/30/2015 Ot 428.0 07/30/2015 Ot 496 07/30/2015 Ot 518.0 07/30/2015 Ot V46.2 08/07/2015 Ot 428.0 08/07/2015 Ot 496 08/07/2015 Ot 518.0 08/07/2015 Ot V46.2 08/30/2015 SUMIT PAREDES FACC, ALI FACP CCDS Ot E78.5 08/30/2015 SUMIT PAREDES FACC, ALI FACP CCDS Ot F41.9 08/30/2015 SUMIT PAREDES FACC, ALI FACP CCDS Ot I25.10 08/30/2015 SUMIT PAREDES FACC, ALI FACP CCDS Ot I42.9 08/30/2015 SUMIT PAREDES FACC, ALI FACP CCDS Ot I50.9 08/30/2015 SUMIT PAREDES FACC, ALI FACP CCDS Ot J44.9 08/30/2015 SUMIT PAREDES FACC, ALI FACP CCDS Ot M19.90 08/30/2015 SUMIT MD FACC, ALI FACP CCDS Ot N18.9 08/30/2015 SUMIT MD FACC, ALI FACP CCDS Ot R91.1 09/24/2015 SUMIT MD FACC, ALI FACP CCDS Ot E78.5 09/24/2015 SUMIT MD FACC, ALI FACP CCDS Ot F41.9 09/24/2015 SMUIT MD FACC, ALI FACP CCDS Ot I25.10 09/24/2015 SUMIT MD FACC, ALI FACP CCDS Ot I42.9 09/24/2015 SUMIT MD FACC, ALI FACP CCDS Ot I50.9 09/24/2015 SUMIT MD FACC, ALI FACP CCDS Ot J44.9 09/24/2015 SUMIT MD FACC, ALI FACP CCDS Ot M19.90 09/24/2015 SUMIT PAREDES FACC, ALI FACP CCDS Ot N18.9 09/24/2015 SUMIT PAREDES FACC, ALI FACP CCDS Ot R91.1 09/25/2015 SUMIT PAREDES FACC, ALI FACP CCDS Ot E78.5 09/25/2015 SUMIT PAREDES FACC, ALI FACP CCDS Ot F41.9 09/25/2015 SUMIT PAREDES FACC, ALI FACP CCDS Ot I25.10 09/25/2015 SUMIT PAREDES FACC, ALI FACP CCDS Ot I42.9 09/25/2015 SUMIT PAREDES FACC, ALI FACP CCDS Ot I50.9 09/25/2015 SUMIT PAREDES FACC, ALI FACP CCDS Ot J44.9 09/25/2015 SUMIT PAREDES FACC, ALI FACP CCDS Ot M19.90 09/25/2015 SUMIT PAREDES FACC, ALI FACP CCDS Ot N18.9 09/25/2015 SUMIT PAREDES FACC, ALI FACP CCDS Ot R91.1 12/03/2015 Ot 733.00 12/03/2015 Ot 496 12/03/2015 Ot 518.89 12/03/2015 Ot 272.4 12/03/2015 Ot V58.69 12/03/2015 Ot 425.4 12/03/2015 Ot 786.05 12/03/2015 Ot 272.4 12/03/2015 Ot 414.01 12/03/2015 Ot 425.4 12/03/2015 Ot 428.0 12/03/2015 Ot V58.69 12/03/2015 Ot 733.00 12/03/2015 Ot V76.12 12/03/2015 Ot 268.9 12/03/2015 Ot 285.9 12/03/2015 Ot 414.01 12/03/2015 Ot 518.89 12/03/2015 Ot 780.79 12/03/2015 Ot V58.69 12/03/2015 Ot 272.4 12/03/2015 Ot V58.69 12/03/2015 Ot 510.9 12/03/2015 Ot 780.60 12/03/2015 Ot 786.07 12/03/2015 Ot 272.4 12/03/2015 Ot V58.69 12/03/2015 Ot 790.99 12/03/2015 Ot V58.69 12/03/2015 Ot 401.9 12/03/2015 Ot V58.69 12/03/2015 Ot V58.69 12/03/2015 Ot V58.83 12/03/2015 Ot 790.99 12/03/2015 Ot V58.69 12/03/2015 SUMIT PAREDES [facility] CCDS Ot 401.9 12/03/2015 SUMIT PAREDES [facility] CCDS Ot 414.00 12/03/2015 MELODY MCGEE DO S Ot 401.9 12/03/2015 MELODY MCGEE DO S Ot 414.00 12/03/2015 BAIMA, KEE L GENERATION ENGINEER Ot 401.9 12/03/2015 BAIMA, KEE L GENERATION ENGINEER Ot V58.69 12/03/2015 JOVITA MCGEE DOLINE S Ot 733.00 12/03/2015 JOVITA MCGEE DOLINE S Ot V76.12 12/03/2015 BAIMA, KEE L GENERATION ENGINEER Ot 272.4 12/03/2015 BAIMA, KEE L GENERATION ENGINEER Ot 414.00 12/03/2015 BAIMA, KEE L GENERATION ENGINEER Ot 425.4 12/03/2015 BAIMA, KEE L GENERATION ENGINEER Ot 585.9 12/03/2015 BAIMA, KEE L GENERATION ENGINEER Ot 272.4 12/03/2015 KEE DAMON L GENERATION ENGINEER Ot 414.00 12/03/2015 KEE DAMON L GENERATION ENGINEER Ot 425.4 12/03/2015 KEE DAMON L GENERATION ENGINEER Ot 496 12/03/2015 KEE DAMON GENERATION ENGINEER Ot 585.9 12/03/2015 ORENDER DO, MELODY S Ot 786.09 12/03/2015 ORENDER DO, MELODY S Ot 789.02 12/03/2015 ORENDER DO, MELODY S Ot V12.61 12/03/2015 ORENDER DO, MELODY S Ot 786.50 12/03/2015 ORENDER DO, MELODY S Ot 793.19 12/03/2015 ORENDER DO, MELODY S Ot 496 12/03/2015 JAKEGREGOR IBANEZ DO Ot 496 12/03/2015 JAKE DO, GREGOR M Ot 518.0 12/03/2015 JAKE DOGREGOR M Ot 786.09 12/03/2015 ORENDER DO, MELODY S Ot 496 12/03/2015 Ot 428.0 12/03/2015 Ot 496 12/03/2015 Ot 518.0 12/03/2015 Ot V46.2 12/03/2015 KEE DAMON GENERATION ENGINEER Ot 272.4 12/03/2015 KEE DAMON L GENERATION ENGINEER Ot V58.69 12/03/2015 ORENDER DO, MELODY S Ot 272.4 12/03/2015 ORENDER DO, MELODY S Ot 593.9 12/03/2015 ORENDER DO, MELODY S Ot 733.00 12/03/2015 ORENDER DO, MELODY S Ot 780.79 12/03/2015 SUMIT PAREDES FAC, ALI FACP CCDS Ot E78.5 12/03/2015 SUMIT PAREDES FAC, ALI FACP CCDS Ot F41.9 12/03/2015 SUMIT PAREDES FACC, ALI FACP CCDS Ot I25.10 12/03/2015 SUMIT PAREDES FACC, ALI FACP CCDS Ot I42.9 12/03/2015 SUMIT PAREDES FAC, ALI FACP CCDS Ot I50.9 12/03/2015 SUMIT PAREDES FACC, CASSIE FACP CCDS Ot J44.9 12/03/2015 SUMIT PAREDES FACReece, CASSIE FACP CCDS Ot M19.90 12/03/2015 SUMIT PAREDES FACC, CASSIE FACP CCDS Ot N18.9 12/03/2015 SUMIT PAREDES FACReece, CASSIE FACP CCDS Ot R91.1 12/05/2015 Ot 733.00 12/05/2015 Ot 496 12/05/2015 Ot 518.89 12/05/2015 Ot 272.4 12/05/2015 Ot V58.69 12/05/2015 Ot 425.4 12/05/2015 Ot 786.05 12/05/2015 Ot 272.4 12/05/2015 Ot 414.01 12/05/2015 Ot 425.4 12/05/2015 Ot 428.0 12/05/2015 Ot V58.69 12/05/2015 Ot 733.00 12/05/2015 Ot V76.12 12/05/2015 Ot 268.9 12/05/2015 Ot 285.9 12/05/2015 Ot 414.01 12/05/2015 Ot 518.89 12/05/2015 Ot 780.79 12/05/2015 Ot V58.69 12/05/2015 Ot 272.4 12/05/2015 Ot V58.69 12/05/2015 Ot 510.9 12/05/2015 Ot 780.60 12/05/2015 Ot 786.07 12/05/2015 Ot 272.4 12/05/2015 Ot V58.69 12/05/2015 Ot 790.99 12/05/2015 Ot V58.69 12/05/2015 Ot 401.9 12/05/2015 Ot V58.69 12/05/2015 Ot V58.69 12/05/2015 Ot V58.83 12/05/2015 Ot 790.99 12/05/2015 Ot V58.69 12/05/2015 SUMIT PAREDES FACC, CASSIE FACP CCDS Ot 401.9 12/05/2015 SUMIT PAREDES [facility] Ot 414.00 12/05/2015 MELODY MCGEE DO Ot 401.9 12/05/2015 MELODY MCGEE DO S Ot 414.00 12/05/2015 BAIMA, KEE L GENERATION ENGINEER Ot 401.9 12/05/2015 BAIMA, KEE L GENERATION ENGINEER Ot V58.69 12/05/2015 [facility] Ot 733.00 12/05/2015 ORENDER DO, MELODY S Ot V76.12 12/05/2015 BAIMA, KEE L GENERATION ENGINEER Ot 272.4 12/05/2015 BAIMA, KEE L GENERATION ENGINEER Ot 414.00 12/05/2015 BAIMA, KEE L GENERATION ENGINEER Ot 425.4 12/05/2015 BAIMA, KEE L GENERATION ENGINEER Ot 585.9 12/05/2015 BAIMA, KEE L GENERATION ENGINEER Ot 272.4 12/05/2015 BAIMA, KEE L GENERATION ENGINEER Ot 414.00 12/05/2015 BAIMA, KEE L GENERATION ENGINEER Ot 425.4 12/05/2015 BAIMA, KEE L GENERATION ENGINEER Ot 496 12/05/2015 BAIMA, KEE L GENERATION ENGINEER Ot 585.9 12/05/2015 [facility] S Ot 786.09 12/05/2015 [facility] S Ot 789.02 12/05/2015 [facility] S Ot V12.61 12/05/2015 [facility] S Ot 786.50 12/05/2015 [facility] S Ot 793.19 12/05/2015 [facility]EL[facility] S Ot 496 12/05/2015 JAKEGREGOR IBANEZ DO M Ot 496 12/05/2015 GREGOR JOSEPH DO M Ot 518.0 12/05/2015 JAKE DOGREGOR M Ot 786.09 12/05/2015 [facility] S Ot 496 12/05/2015 Ot 428.0 12/05/2015 Ot 496 12/05/2015 Ot 518.0 12/05/2015 Ot V46.2 12/05/2015 BAIMA, KEE L GENERATION ENGINEER Ot 272.4 12/05/2015 BAIMA, KEE L GENERATION ENGINEER Ot V58.69 12/05/2015 [facility] S Ot 272.4 12/05/2015 [facility] S Ot 593.9 12/05/2015 MELODY MCGEE DO Ot 733.00 12/05/2015 MELODY MCGEE DO Ot 780.79 12/05/2015 SUMIT PAREDES [facility], ALI FACP CCDS Ot E78.5 12/05/2015 SUMIT PAREDES [facility], ALI FACP CCDS Ot F41.9 12/05/2015 SUMIT PAREDES [facility], ALI FACP CCDS Ot I25.10 12/05/2015 SUMIT MD [facility], ALI FACP CCDS Ot I42.9 12/05/2015 SUMIT MD [facility], ALI FACP CCDS Ot I50.9 12/05/2015 SUMIT MD [facility], ALI FACP CCDS Ot J44.9 12/05/2015 SUMIT MD [facility], ALI FACP CCDS Ot M19.90 12/05/2015 SUMIT PAREDES [facility], ALI FACP CCDS Ot N18.9 12/05/2015 SUMIT MD [facility], ALI FACP CCDS Ot R91.1 12/05/2015 KEE DAMON GENERATION ENGINEER Ot E78.5 12/25/2015 KEE DAMON GENERATION ENGINEER Ot E78.5 01/22/2016 MELODY MCGEE DO S Ot M81.0 01/28/2016 MARTINA MONAHAN CLINICAL RESOURCE NURSE Ot J44.9 01/28/2016 MARTINA MONAHAN CLINICAL RESOURCE NURSE Ot R91.1 01/28/2016 MARTINA MONAHAN CLINICAL RESOURCE NURSE Ot Z72.0 02/05/2016 MARTINA MONAHAN CLINICAL RESOURCE NURSE Ot J44.9 02/05/2016 MARTINA MONAHAN CLINICAL RESOURCE NURSE Ot R91.1 02/05/2016 MARTINA MONAHAN CLINICAL RESOURCE NURSE Ot Z72.0 02/28/2016 MARY PEREZ APRN Ot S81.811A LACERATION W/O FOREIGN BODY, RIGHT LOWER 02/28/2016 MARY PEREZ APRN Ot S81.812A LACERATION WITHOUT FOREIGN BODY, LEFT LO 02/28/2016 MARY PEREZ APRN Ot X58.XXXA EXPOSURE TO OTHER SPECIFIED FACTORS, INI 02/28/2016 MARY PEREZ APRN Ot Y99.8 OTHER EXTERNAL CAUSE STATUS 03/11/2016 MARY PEREZ CLINICAL RESOURCE NURSE Ot S81.811A LACERATION W/O FOREIGN BODY, RIGHT LOWER 03/11/2016 MARY PEREZ CLINICAL RESOURCE NURSE Ot S81.812A LACERATION WITHOUT FOREIGN BODY, LEFT LO 03/11/2016 MARY PEREZ CLINICAL RESOURCE NURSE Ot X58.XXXA EXPOSURE TO OTHER SPECIFIED FACTORS, INI 03/11/2016 MARY PEREZ CLINICAL RESOURCE NURSE Ot Y99.8 OTHER EXTERNAL CAUSE STATUS 03/24/2016 MARY PEREZ CLINICAL RESOURCE NURSE Ot S81.811A LACERATION W/O FOREIGN BODY, RIGHT LOWER 03/24/2016 MARY PEREZ R CLINICAL RESOURCE NURSE Ot S81.812A LACERATION WITHOUT FOREIGN BODY, LEFT LO 03/24/2016 MARY PEREZ CLINICAL RESOURCE NURSE Ot X58.XXXA EXPOSURE TO OTHER SPECIFIED FACTORS, INI 03/24/2016 MARY PEREZ CLINICAL RESOURCE NURSE Ot Y99.8 OTHER EXTERNAL CAUSE STATUS 04/09/2016 GREGOR JOSEPH DO Ot I10 ESSENTIAL (PRIMARY) HYPERTENSION 04/11/2016 GREGOR JOSEPH DO Ot F41.9 ANXIETY DISORDER, UNSPECIFIED 04/11/2016 GREGOR JOSEPH DO Ot J43.8 OTHER EMPHYSEMA 04/11/2016 GREGOR JOSEPH DO Ot R91.1 SOLITARY PULMONARY NODULE 05/02/2016 GREGOR JOSEPH DO Ot F41.9 ANXIETY DISORDER, UNSPECIFIED 05/02/2016 GREGOR JOSEPH DO Ot J43.8 OTHER EMPHYSEMA 05/02/2016 GREGOR JOSEPH DO Ot R91.1 SOLITARY PULMONARY NODULE 05/12/2016 KEE DAMON GENERATION ENGINEER Ot I25.10 ATHSCL HEART DISEASE OF [place] CORONARY 05/13/2016 KEE DAMON GENERATION ENGINEER Ot E78.5 HYPERLIPIDEMIA, UNSPECIFIED 05/13/2016 KEE DAMON L GENERATION ENGINEER Ot I25.10 ATHSCL HEART DISEASE OF [place] CORONARY 05/14/2016 GREGOR JOSEPH DO Ot F41.9 ANXIETY DISORDER, UNSPECIFIED 05/14/2016 GREGOR JOSEPH DO Ot J43.8 OTHER EMPHYSEMA 05/14/2016 GREGOR JOSEPH DO Ot R91.1 SOLITARY PULMONARY NODULE 06/18/2016 KEE DAMON GENERATION ENGINEER Ot E78.5 HYPERLIPIDEMIA, UNSPECIFIED 06/18/2016 KEE DAMON Ot I25.10 ATHSCL HEART DISEASE OF [place] CORONARY 09/25/2016 Ot 272.4 HYPERLIPIDEMIA NEC/NOS 09/25/2016 Ot 414.01 CORONARY ATHEROSCLEROSIS OF [place] CORON 09/25/2016 Ot 425.4 PRIM CARDIOMYOPATHY NEC 09/25/2016 Ot 428.0 CONGESTIVE HEART FAILURE NOS 09/25/2016 Ot V58.69 OTH MED,LT,CURRENT USE 09/25/2016 Ot 733.00 OSTEOPOROSIS NOS 09/25/2016 Ot V76.12 OTH SCREEN MAMMO-MALIGN NEOPLASM OF [place] 09/25/2016 Ot 268.9 VITAMIN D DEFICIENCY NOS 09/25/2016 Ot 285.9 ANEMIA NOS 09/25/2016 Ot 414.01 CORONARY ATHEROSCLEROSIS OF [place] CORON 09/25/2016 Ot 518.89 OTHER DISEASES OF LUNG, NEC 09/25/2016 Ot 780.79 OTH MALAISE FATIGUE 09/25/2016 Ot V58.69 OTH MED,LT,CURRENT USE 09/25/2016 Ot 272.4 HYPERLIPIDEMIA NEC/NOS 09/25/2016 Ot V58.69 OTH MED,LT,CURRENT USE 09/25/2016 Ot 510.9 EMPYEMA W/O FISTULA 09/25/2016 Ot 780.60 FEVER, UNSPECIFIED 09/25/2016 Ot 786.07 WHEEZING 09/25/2016 Ot 272.4 HYPERLIPIDEMIA NEC/NOS 09/25/2016 Ot V58.69 OTH MED,LT,CURRENT USE 09/25/2016 Ot 790.99 BLOOD EXAM - OTH NONSPECIFIC FINDINGS 09/25/2016 Ot V58.69 OTH MED,LT,CURRENT USE 09/25/2016 Ot 401.9 HYPERTENSION NOS 09/25/2016 Ot V58.69 OTH MED,LT,CURRENT USE 09/25/2016 Ot V58.69 OTH MED,LT,CURRENT USE 09/25/2016 Ot V58.83 ENCOUNTER FOR THERAPEUTIC DRUG MONITORIN 09/25/2016 Ot 790.99 BLOOD EXAM - OTH NONSPECIFIC FINDINGS 09/25/2016 Ot V58.69 OTH MED,LT,CURRENT USE 09/25/2016 SUMIT PAREDES FACC, CASSIE [place] CCDS Ot 401.9 HYPERTENSION NOS 09/25/2016 SUMIT PAREDES FACC, CASSIE [place] CCDS Ot 414.00 CORON ATHEROSCLER NOS TYPE VESSEL, NATIV 09/25/2016 ORENDER DO, MELODY S Ot 401.9 HYPERTENSION NOS 09/25/2016 HARDIK MCGEE DOQUELINE S Ot 414.00 CORON ATHEROSCLER NOS TYPE VESSEL, NATIV 09/25/2016 BAIKEE LEI L GENERATION ENGINEER Ot 401.9 HYPERTENSION NOS 09/25/2016 MARISOL, KEE L GENERATION ENGINEER Ot V58.69 OTH MED,LT,CURRENT USE 09/25/2016 JOVITA MCGEE DOLINE S Ot 733.00 OSTEOPOROSIS NOS 09/25/2016 HARDIK MCGEE DOQUELINE S Ot V76.12 OTH SCREEN MAMMO-MALIGN NEOPLASM OF [place] 09/25/2016 BAIMA, KEE L GENERATION ENGINEER Ot 272.4 HYPERLIPIDEMIA NEC/NOS 09/25/2016 BAIMA, KEE L GENERATION ENGINEER Ot 414.00 CORON ATHEROSCLER NOS TYPE VESSEL, NATIV 09/25/2016 BAIMA, KEE L GENERATION ENGINEER Ot 425.4 PRIM CARDIOMYOPATHY NEC 09/25/2016 BAIMA, KEE L GENERATION ENGINEER Ot 585.9 CHRONIC KIDNEY DISEASE, UNSPECIFIED 09/25/2016 BAIMA, KEE L GENERATION ENGINEER Ot 272.4 HYPERLIPIDEMIA NEC/NOS 09/25/2016 BAIMA, KEE L GENERATION ENGINEER Ot 414.00 CORON ATHEROSCLER NOS TYPE VESSEL, NATIV 09/25/2016 BAIMA, KEE L GENERATION ENGINEER Ot 425.4 PRIM CARDIOMYOPATHY NEC 09/25/2016 BAIDO, KEE L GENERATION ENGINEER Ot 496 CHR AIRWAY OBSTRUCT NEC 09/25/2016 BAIDO, KEE L GENERATION ENGINEER Ot 585.9 CHRONIC KIDNEY DISEASE, UNSPECIFIED 09/25/2016 MELODY MCGEE DO S Ot 786.09 RESPIRATORY ABNORM NEC 09/25/2016 HARDIK MCGEE DOQUELINE S Ot 789.02 ABDOMINAL PAIN, LEFT UPPER QUADRANT 09/25/2016 HARDIK MCGEE DOQUELINE S Ot V12.61 PERSONAL HISTORY, PNEUMONIA ( RECURRENT) 09/25/2016 HARDIK MCGEE DOQUELINE S Ot 786.50 CHEST PAIN NOS 09/25/2016 HARDIK MCGEE DOQUELINE S Ot 793.19 OTHER NONSPECIFIC ABNORMAL FINDING OF FRANCINE 09/25/2016 MELODY MCGEE DO S Ot 496 CHR AIRWAY OBSTRUCT NEC 09/25/2016 GREGOR JOSEPH DO Ot 496 CHR AIRWAY OBSTRUCT NEC 09/25/2016 GREGOR JOSEPH DO Ot 518.0 PULMONARY COLLAPSE 09/25/2016 GREGOR JOSEPH DO Ot 786.09 RESPIRATORY ABNORM NEC 09/25/2016 HARDIK MCGEE DOQUELINE S Ot 496 CHR AIRWAY OBSTRUCT NEC 09/25/2016 Ot 428.0 CONGESTIVE HEART FAILURE NOS 09/25/2016 Ot 496 CHR AIRWAY OBSTRUCT NEC 09/25/2016 Ot 518.0 PULMONARY COLLAPSE 09/25/2016 Ot V46.2 SUPPLEMENTAL OXYGEN 09/25/2016 BAIMA, KEE L GENERATION ENGINEER Ot 272.4 HYPERLIPIDEMIA NEC/NOS 09/25/2016 BAIMA, KEE L GENERATION ENGINEER Ot V58.69 OTH MED,LT,CURRENT USE 09/25/2016 ELIZABETHNDHARDIK KEVIN DOQUELINE S Ot 272.4 HYPERLIPIDEMIA NEC/NOS 09/25/2016 ELIZABETHNDDORITA BROOKS MELODY S Ot 593.9 RENAL URETERAL DIS NOS 09/25/2016 ELIZABETHNDDORITA BROOKS MELODY S Ot 733.00 OSTEOPOROSIS NOS 09/25/2016 ELIZABETHRUBENSDORITA BROOKS MELODY S Ot 780.79 OTH MALAISE FATIGUE 09/25/2016 SUMIT PAREDES FACC, CASSIE FACP CCDS Ot E78.5 HYPERLIPIDEMIA, UNSPECIFIED 09/25/2016 SUMIT PAREDES FACC, ALI FACP CCDS Ot F41.9 ANXIETY DISORDER, UNSPECIFIED 09/25/2016 SUMIT PAREDES FACC, ALI FACP CCDS Ot I25.10 ATHSCL HEART DISEASE OF [place] CORONARY 09/25/2016 SUMIT PAREDES FACC, ALI FACP CCDS Ot I42.9 CARDIOMYOPATHY, UNSPECIFIED 09/25/2016 SUMIT PAREDES FACC, ALI FACP CCDS Ot I50.9 HEART FAILURE, UNSPECIFIED 09/25/2016 SUMIT PAREDES FACC, ALI FACP CCDS Ot J44.9 CHRONIC OBSTRUCTIVE PULMONARY DISEASE, U 09/25/2016 SUMIT PAREDES FACC, ALI FACP CCDS Ot M19.90 UNSPECIFIED OSTEOARTHRITIS, UNSPECIFIED 09/25/2016 SUMIT PAREDES FACC, ALI FACP CCDS Ot N18.9 CHRONIC KIDNEY DISEASE, UNSPECIFIED 09/25/2016 SUMIT PAREDES FACC, ALI FACP CCDS Ot R91.1 SOLITARY PULMONARY NODULE 09/25/2016 MARTINA MONAHAN APRN Ot J44.9 CHRONIC OBSTRUCTIVE PULMONARY DISEASE , U 09/25/2016 MARTINA MONAHAN CLINICAL RESOURCE NURSE Ot R91.1 SOLITARY PULMONARY NODULE 09/25/2016 MARTINA MONAHAN CLINICAL RESOURCE NURSE Ot Z72.0 TOBACCO USE 09/25/2016 KEE DAMON GENERATION ENGINEER Ot E78.5 HYPERLIPIDEMIA, UNSPECIFIED 09/25/2016 MELODY MCGEE DO Ot M81.0 AGE-RELATED OSTEOPOROSIS W/O CURRENT PAT 09/25/2016 GREGOR JOSEPH DO Ot F41.9 ANXIETY DISORDER, UNSPECIFIED 09/25/2016 GREGOR JOSEPH DO Ot J43.8 OTHER EMPHYSEMA 09/25/2016 GREGOR JOSEPH DO Ot R91.1 SOLITARY PULMONARY NODULE 09/25/2016 KEE DAMON GENERATION ENGINEER Ot E78.5 HYPERLIPIDEMIA, UNSPECIFIED 09/25/2016 KEE DAMON GENERATION ENGINEER Ot I25.10 ATHSCL HEART DISEASE OF [place] CORONARY 09/28/2016 SUMIT PAREDES FACC, ALI FACP CCDS Ot E78.4 OTHER HYPERLIPIDEMIA 09/28/2016 SUMIT PAREDES FACC, ALI FACP CCDS Ot I25.10 ATHSCL HEART DISEASE OF [place] CORONARY 09/28/2016 SUMIT PAREDES FACC, ALI FACP CCDS Ot I47.1 SUPRAVENTRICULAR TACHYCARDIA 09/28/2016 SUMIT PAREDES FACC, ALI FACP CCDS Ot 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 09/28/2016 SUMIT DUNLAPC, ALI FACP CCDS Ot J43.8 OTHER EMPHYSEMA 09/28/2016 SUMIT PAREDES FACC, ALI FACP CCDS Ot N18.2 CHRONIC KIDNEY DISEASE, STAGE 2 ( MILD) 10/13/2016 MARTINA MONAHAN CLINICAL RESOURCE NURSE Ot J44.1 CHRONIC OBSTRUCTIVE PULMONARY DISEASE W 10/13/2016 MARTINA MONAHAN CLINICAL RESOURCE NURSE Ot J98.11 ATELECTASIS 10/13/2016 MARTINA MONAHAN CLINICAL RESOURCE NURSE Ot R06.00 DYSPNEA, UNSPECIFIED 10/13/2016 MARTINA MONAHAN CLINICAL RESOURCE NURSE Ot R91.1 SOLITARY PULMONARY NODULE 10/15/2016 MARTINA MONAHAN CLINICAL RESOURCE NURSE Ot J43.9 EMPHYSEMA, UNSPECIFIED 10/15/2016 MARTINA MONAHAN CLINICAL RESOURCE NURSE Ot R06.00 DYSPNEA, UNSPECIFIED 10/15/2016 HERO, MARTINA E CLINICAL RESOURCE NURSE Ot R09.02 HYPOXEMIA 10/15/2016 MARTINA MONAHAN CLINICAL RESOURCE NURSE Ot J43.9 EMPHYSEMA, UNSPECIFIED 10/15/2016 MARTINA MONAHAN CLINICAL RESOURCE NURSE Ot R06.00 DYSPNEA, UNSPECIFIED 10/15/2016 MARTINA MONAHAN CLINICAL RESOURCE NURSE Ot R09.02 HYPOXEMIA 10/21/2016 SUMIT PAREDES FAC, ALI FACP CCDS Ot E78.4 OTHER HYPERLIPIDEMIA 10/21/2016 SUMIT PAREDES FAC, ALI FACP CCDS Ot I25.10 ATHSCL HEART DISEASE OF [place] CORONARY 10/21/2016 SUMIT PAREDES FAC, ALI FACP CCDS Ot I47.1 SUPRAVENTRICULAR TACHYCARDIA 10/21/2016 SUMIT PAREDES FAC, ALI FACP CCDS Ot 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 10/21/2016 SUMIT PAREDES FAC, ALI FACP CCDS Ot J43.8 OTHER EMPHYSEMA 10/21/2016 SUMIT PAREDES [facility], ALI FACP CCDS Ot N18.2 CHRONIC KIDNEY DISEASE, STAGE 2 ( MILD) 11/05/2016 MARTINA MONAHAN CLINICAL RESOURCE NURSE Ot J44.1 CHRONIC OBSTRUCTIVE PULMONARY DISEASE W 11/05/2016 MARTINA MONAHAN CLINICAL RESOURCE NURSE Ot J98.11 ATELECTASIS 11/05/2016 MARTINA MONAHAN CLINICAL RESOURCE NURSE Ot R06.00 DYSPNEA, UNSPECIFIED 11/05/2016 MARTINA MONAHAN CLINICAL RESOURCE NURSE Ot R91.1 SOLITARY PULMONARY NODULE 11/05/2016 MARTINA MONAHAN CLINICAL RESOURCE NURSE Ot J43.9 EMPHYSEMA, UNSPECIFIED 11/05/2016 MARTINA MONAHAN CLINICAL RESOURCE NURSE Ot R06.00 DYSPNEA, UNSPECIFIED 11/05/2016 MARTINA MONAHAN CLINICAL RESOURCE NURSE Ot R09.02 HYPOXEMIA 11/18/2016 MARTINA MONAHAN CLINICAL RESOURCE NURSE Ot J44.1 CHRONIC OBSTRUCTIVE PULMONARY DISEASE W 11/18/2016 MARTINA MONAHAN CLINICAL RESOURCE NURSE Ot J98.11 ATELECTASIS 11/18/2016 MARTINA MONAHAN CLINICAL RESOURCE NURSE Ot R06.00 DYSPNEA, UNSPECIFIED 11/18/2016 MARTINA MONAHAN CLINICAL RESOURCE NURSE Ot R91.1 SOLITARY PULMONARY NODULE 11/18/2016 MARTINA MONAHAN CLINICAL RESOURCE NURSE Ot J43.9 EMPHYSEMA, UNSPECIFIED 11/18/2016 MARTINA MONAHAN APRN Ot R06.00 DYSPNEA, UNSPECIFIED 11/18/2016 MARTINA MONAHAN APRN Ot R09.02 HYPOXEMIA 12/21/2016 JOVITA MCGEE DOLINE S Ot R51 HEADACHE 12/21/2016 ELIZABETHNDDORITA BROOKS, MELODY S Ot R51 HEADACHE 01/08/2017 JOVITA MCGEE DOLINE S Ot F41.9 ANXIETY DISORDER, UNSPECIFIED 01/08/2017 JOVITA MCGEE DOLINE S Ot F43.10 POST-TRAUMATIC STRESS DISORDER, UNSPECIF 01/08/2017 HARDIK MCGEE DOQUELINE S Ot I10 ESSENTIAL (PRIMARY) HYPERTENSION 01/08/2017 JOVITA MCGEE DOLINE S Ot I25.5 ISCHEMIC CARDIOMYOPATHY 01/08/2017 JOVITA MCGEE DOLINE S Ot J18.1 LOBAR PNEUMONIA, UNSPECIFIED ORGANISM 01/08/2017 JOVITA MCGEE DOLINE S Ot J18.9 PNEUMONIA, UNSPECIFIED ORGANISM 01/08/2017 JOVITA MCGEE DOLINE S Ot J44.0 CHRONIC OBSTRUCTIVE PULMON DISEASE W ACU 01/08/2017 HARDIK MCGEE DOQUELINE S Ot K21.9 GASTRO-ESOPHAGEAL REFLUX DISEASE WITHOUT 01/08/2017 JOVITA MCGEE DOLINE S Ot M19.91 PRIMARY OSTEOARTHRITIS, UNSPECIFIED SITE 01/08/2017 HARDIK MCGEE DOQUELINE S Ot Z87.891 PERSONAL HISTORY OF NICOTINE DEPENDENCE 01/08/2017 HARDIK MCGEE DOQUELINE S Ot Z99.81 DEPENDENCE ON SUPPLEMENTAL OXYGEN 01/11/2017 JOVITA MCGEE DOLINE S Ot R51 HEADACHE 01/11/2017 HARDIK MCGEE DOQUELINE S Ot F41.9 ANXIETY DISORDER, UNSPECIFIED 01/11/2017 HARDIK MCGEE DOQUELINE S Ot I10 ESSENTIAL (PRIMARY) HYPERTENSION 01/11/2017 HARDIK MCGEE DOQUELINE S Ot J18.9 PNEUMONIA, UNSPECIFIED ORGANISM 01/11/2017 HARDIK MCGEE DOQUELINE S Ot J44.0 CHRONIC OBSTRUCTIVE PULMON DISEASE W ACU 01/21/2017 HARDIK MCGEE DOQUELINE S Ot R51 HEADACHE 03/19/2017 GREGOR JOSEPH DO Ot J43.9 EMPHYSEMA, UNSPECIFIED 03/19/2017 GREGOR JOSEPH DO M Ot R09.02 HYPOXEMIA 03/19/2017 JAKE BROOKSGREGOR Ot R91.1 SOLITARY PULMONARY NODULE 04/13/2017 MELODY MCGEE DO Ot F41.9 ANXIETY DISORDER, UNSPECIFIED 04/13/2017 MELODY MCGEE DO Ot F43.10 POST-TRAUMATIC STRESS DISORDER, UNSPECIF 04/13/2017 JOVITA MCGEE DOLINE S Ot I10 ESSENTIAL (PRIMARY) HYPERTENSION 04/13/2017 JOVITA MCGEE DOLINE S Ot I25.10 ATHSCL HEART DISEASE OF [place] CORONARY 04/13/2017 JOVITA MCGEE DOLINE S Ot I25.5 ISCHEMIC CARDIOMYOPATHY 04/13/2017 MELODY MCGEE DO S Ot J30.2 OTHER SEASONAL ALLERGIC RHINITIS 04/13/2017 JOVITA MCGEE DOLINE S Ot J44.9 CHRONIC OBSTRUCTIVE PULMONARY DISEASE , U 04/13/2017 MELODY MCGEE DO S Ot K21.9 GASTRO-ESOPHAGEAL REFLUX DISEASE WITHOUT 04/13/2017 JOVITA MCGEE DOLINE S Ot K44.9 DIAPHRAGMATIC HERNIA WITHOUT OBSTRUCTION 04/13/2017 MELODY MCGEE DO S Ot K57.90 DVRTCLOS OF INTEST, PART UNSP, W/O PERF 04/13/2017 MELODY MCGEE DO S Ot M19.91 PRIMARY OSTEOARTHRITIS, UNSPECIFIED SITE 04/13/2017 MELODY MCGEE DO S Ot N39.0 URINARY TRACT INFECTION, SITE NOT SPECIF 04/13/2017 MELODY MCGEE DO S Ot Z87.891 PERSONAL HISTORY OF NICOTINE DEPENDENCE 04/13/2017 JOVITA MCGEE DOLINE S Ot Z99.81 DEPENDENCE ON SUPPLEMENTAL OXYGEN 04/14/2017 JOVITA MCGEE DOLINE S Ot F41.9 ANXIETY DISORDER, UNSPECIFIED 04/14/2017 MELODY MCGEE DO S Ot F43.10 POST-TRAUMATIC STRESS DISORDER, UNSPECIF 04/14/2017 JOVITA MCGEE DOLINE S Ot I10 ESSENTIAL (PRIMARY) HYPERTENSION 04/14/2017 JOVITA MCGEE DOLINE S Ot I25.10 ATHSCL HEART DISEASE OF [place] CORONARY 04/14/2017 JOVITA MCGEE DOLINE S Ot I25.5 ISCHEMIC CARDIOMYOPATHY 04/14/2017 ARELY BROOKS MELODY S Ot J30.2 OTHER SEASONAL ALLERGIC RHINITIS 04/14/2017 ARELY BROOKS MELODY S Ot J44.9 CHRONIC OBSTRUCTIVE PULMONARY DISEASE , U 04/14/2017 ARELY BROOKS MELODY S Ot K21.9 GASTRO-ESOPHAGEAL REFLUX DISEASE WITHOUT 04/14/2017 ELIZABETHNDER DO MELODY S Ot K44.9 DIAPHRAGMATIC HERNIA WITHOUT OBSTRUCTION 04/14/2017 ARELY BROOKS MELODY S Ot K57.90 DVRTCLOS OF INTEST, PART UNSP, W/O PERF 04/14/2017 ARELY BROOKS MELODY S Ot M19.91 PRIMARY OSTEOARTHRITIS, UNSPECIFIED SITE 04/14/2017 MELODY MCGEE DO S Ot N39.0 URINARY TRACT INFECTION, SITE NOT SPECIF 04/14/2017 ARELY BROOKS MELODY S Ot Z87.891 PERSONAL HISTORY OF NICOTINE DEPENDENCE 04/14/2017 MELODY MCGEE DO S Ot Z99.81 DEPENDENCE ON SUPPLEMENTAL OXYGEN 04/15/2017 ARELY BROOKS MELODY S Ot A41.81 SEPSIS DUE TO ENTEROCOCCUS 04/15/2017 HARDIK MCGEE DOQUELINE S Ot F41.9 ANXIETY DISORDER, UNSPECIFIED 04/15/2017 HARDIK MCGEE DOQUELINE S Ot F43.10 POST-TRAUMATIC STRESS DISORDER, UNSPECIF 04/15/2017 ARELY BROOKS MELODY S Ot I10 ESSENTIAL (PRIMARY) HYPERTENSION 04/15/2017 JOVITA MCGEE DOLINE S Ot I25.10 ATHSCL HEART DISEASE OF [place] CORONARY 04/15/2017 HARDIK MCGEE DOQUELINE S Ot I25.5 ISCHEMIC CARDIOMYOPATHY 04/15/2017 HARDIK MCGEE DOQUELINE S Ot J30.2 OTHER SEASONAL ALLERGIC RHINITIS 04/15/2017 HARDIK MCGEE DOQUELINE S Ot J44.9 CHRONIC OBSTRUCTIVE PULMONARY DISEASE , U 04/15/2017 ELIZABETHNDDORITA BROOKS MELODY S Ot K21.9 GASTRO-ESOPHAGEAL REFLUX DISEASE WITHOUT 04/15/2017 ELIZABETHNDER HARDIK BROOKSMELODY S Ot K44.9 DIAPHRAGMATIC HERNIA WITHOUT OBSTRUCTION 04/15/2017 HARDIK MCGEE DOQUELINE S Ot K57.90 DVRTCLOS OF INTEST, PART UNSP, W/O PERF 04/15/2017 ORENDER DO, MELODY S Ot M19.91 PRIMARY OSTEOARTHRITIS, UNSPECIFIED SITE 04/15/2017 ELIZABETHNDER DO, MELODY S Ot N39.0 URINARY TRACT INFECTION, SITE NOT SPECIF 04/15/2017 ORENDER DO, MELODY S Ot R53.83 OTHER FATIGUE 04/15/2017 ORENDER DO, MELODY S Ot Z87.891 PERSONAL HISTORY OF NICOTINE DEPENDENCE 04/15/2017 ELIZABETHNDER DO MELODY S Ot Z99.81 DEPENDENCE ON SUPPLEMENTAL OXYGEN 04/15/2017 ELIZABETHNDER DO, MELODY S Ot A41.81 SEPSIS DUE TO ENTEROCOCCUS 04/15/2017 ORENDER DO, MELODY S Ot F41.9 ANXIETY DISORDER, UNSPECIFIED 04/15/2017 ELIZABETHNDER DO MELODY S Ot F43.10 POST-TRAUMATIC STRESS DISORDER, UNSPECIF 04/15/2017 HARDIK MCGEE DOQUELINE S Ot I10 ESSENTIAL (PRIMARY) HYPERTENSION 04/15/2017 ELIZABETHNDDORITA BROOKS MELODY S Ot I25.10 ATHSCL HEART DISEASE OF [place] CORONARY 04/15/2017 ELIZABETHNDER DO, MELODY S Ot I25.5 ISCHEMIC CARDIOMYOPATHY 04/15/2017 ELIZABETHNDER DO MELODY S Ot J30.2 OTHER SEASONAL ALLERGIC RHINITIS 04/15/2017 ELIZABETHNDDORITA BROOKS MELODY S Ot J44.9 CHRONIC OBSTRUCTIVE PULMONARY DISEASE , U 04/15/2017 ELIZABETHNDER DO MELODY S Ot K21.9 GASTRO-ESOPHAGEAL REFLUX DISEASE WITHOUT 04/15/2017 ELIZABETHNDER DO MELODY S Ot K44.9 DIAPHRAGMATIC HERNIA WITHOUT OBSTRUCTION 04/15/2017 ELIZABETHNDER DO EMLODY S Ot K57.90 DVRTCLOS OF INTEST, PART UNSP, W/O PERF 04/15/2017 ORENDER DO, MELODY S Ot M19.91 PRIMARY OSTEOARTHRITIS, UNSPECIFIED SITE 04/15/2017 ELIZABETHNDER DO MELODY S Ot N39.0 URINARY TRACT INFECTION, SITE NOT SPECIF 04/15/2017 ORENDER DO MELODY S Ot R53.83 OTHER FATIGUE 04/15/2017 ELIZABETHNDER DO, MELODY S Ot Z87.891 PERSONAL HISTORY OF NICOTINE DEPENDENCE 04/15/2017 MELODY MCGEE DO Ot Z99.81 DEPENDENCE ON SUPPLEMENTAL OXYGEN 04/19/2017 GREGOR JOSEPH DO Ot J43.9 EMPHYSEMA, UNSPECIFIED 04/19/2017 GREGOR JOSEPH DO Ot R09.02 HYPOXEMIA 04/19/2017 GREGOR JOSEPH DO Ot R91.1 SOLITARY PULMONARY NODULE 04/21/2017 GREGOR JOSEPH DO Ot J43.9 EMPHYSEMA, UNSPECIFIED 04/21/2017 GREGOR JOSEPH DO Ot R09.02 HYPOXEMIA 04/21/2017 GREGOR JOSEPH DO Ot R91.1 SOLITARY PULMONARY NODULE Procedures Code Description Performed By Performed On 38.93 VENOUS CATHETERIZATION NEC 07/01/2012 Results Test Result Range Comprehensive metabolic panel - 09/25/16 07:20 Serum or plasma sodium measurement (moles/volume) 141 mmol/ L 135-145 Serum or plasma potassium measurement (moles/volume) 4.0 mmol/L 3.6-5.0 Serum or plasma chloride measurement (moles/volume) 102 mmol /L 98-107 Carbon dioxide 28 mmol/L 21-32 Serum or plasma anion gap determination (moles/volume) 11 mmol/L 5-14 Serum or plasma urea nitrogen measurement (mass/volume) 15 mg/dL 7-18 Serum or plasma creatinine measurement (mass/volume) 1.07 mg /dL 0.60-1.30 Serum or plasma urea nitrogen/creatinine mass ratio 14 NRG Serum or plasma creatinine measurement with calculation of estimated glomerular filtration rate 50 NRG Serum or plasma glucose measurement (mass/volume) 87 mg/dL 70-105 Serum or plasma calcium measurement (mass/volume) 9.7 mg/dL 8.5-10.1 Serum or plasma total bilirubin measurement (mass/volume) 0.5 mg/dL 0.1-1.0 Serum or plasma alkaline phosphatase measurement (enzymatic activity/volume) 68 U/L 40-136 Serum or plasma aspartate aminotransferase measurement (enzymatic activity/ volume) 23 U/L 5-34 Serum or plasma alanine aminotransferase measurement (enzymatic activity/volume ) 16 U/L 0-55 Serum or plasma protein measurement (mass/volume) 7.1 g/dL 6.4-8.2 Serum or plasma albumin measurement (mass/volume) 3.9 g/dL 3.2-4.5 Lipid 1996 panel - 09/25/16 07:20 Serum or plasma triglyceride measurement (mass/volume) 94 mg /dL <150 Serum or plasma cholesterol measurement (mass/volume) 149 mg /dL < 200 Serum or plasma cholesterol in HDL measurement (mass/volume) 52 mg/dL 40-60 Cholesterol in LDL [mass/volume] in serum or plasma by direct assay 67 mg/dL 1-129 Serum or plasma cholesterol in VLDL measurement (mass/volume) 19 mg/dL 5-40 THYROID STIMULATING HORMONE - 09/25/16 07:20 THYROID STIMULATING HORMONE 5.75 u[iU]/mL 0.35-4.94 Complete blood count (CBC) with automated white blood cell (WBC) differential - 01/04/17 07:54 Blood leukocytes automated count (number/volume) 12.8 10*3/ uL 4.3-11.0 Blood erythrocytes automated count (number/volume) 3.76 10*6 /uL 4.35-5.85 Venous blood hemoglobin measurement (mass/volume) 11.8 g/dL 11.5-16.0 Blood hematocrit (volume fraction) 36 % 35-52 Automated erythrocyte mean corpuscular volume 96 [foz_us] 80-99 Automated erythrocyte mean corpuscular hemoglobin (mass per erythrocyte) 31 pg 25-34 Automated erythrocyte mean corpuscular hemoglobin concentration measurement ( mass/volume) 33 g/dL 32-36 Automated erythrocyte distribution width ratio 12.7 % 10.0-14.5 Automated blood platelet count (count/volume) 283 10*3/uL 130-400 Automated blood platelet mean volume measurement 8.7 [foz_us ] 7.4-10.4 Automated blood neutrophils/100 leukocytes 79 % 42-75 Automated blood lymphocytes/100 leukocytes 8 % 12-44 Blood monocytes/100 leukocytes 12 % 0-12 Automated blood eosinophils/100 leukocytes 2 % 0-10 Automated blood basophils/100 leukocytes 0 % 0-10 Blood neutrophils automated count (number/volume) 10.2 10*3 1.8-7.8 Blood lymphocytes automated count (number/volume) 1.0 10*3 1.0-4.0 Blood monocytes automated count (number/volume) 1.5 10*3 0.0-1.0 Automated eosinophil count 0.2 10*3/uL 0.0-0.3 Automated blood basophil count (count/volume) 0.0 10*3/uL 0.0-0.1 PT panel in platelet poor plasma by coagulation assay - 01/04/17 07:54 Prothrombin time (PT) in platelet poor plasma by coagulation assay 12.7 s 12.2-14.7 INR in platelet poor plasma or blood by coagulation assay 1.0 0.8-1.4 Activated partial thromboplastin time (aPTT) in platelet poor plasma bycoagulation assay - 01/04/17 07:54 Activated partial thromboplastin time (aPTT) in platelet poor plasma bycoagulation assay 31 s 24-35 Blood lactic acid measurement (moles/volume) - 01/04/17 07:54 Blood lactic acid measurement (moles/volume) 0.8 mmol/L 0.5-2.0 Comprehensive metabolic panel - 01/04/17 07:54 Serum or plasma sodium measurement (moles/volume) 134 mmol/ L 135-145 Serum or plasma potassium measurement (moles/volume) 4.6 mmol/L 3.6-5.0 Serum or plasma chloride measurement (moles/volume) 99 mmol/ L 98-107 Carbon dioxide 26 mmol/L 21-32 Serum or plasma anion gap determination (moles/volume) 9 mmol/L 5-14 Serum or plasma urea nitrogen measurement (mass/volume) 14 mg/dL 7-18 Serum or plasma creatinine measurement (mass/volume) 1.03 mg /dL 0.60-1.30 Serum or plasma urea nitrogen/creatinine mass ratio 14 NRG Serum or plasma creatinine measurement with calculation of estimated glomerular filtration rate 52 NRG Serum or plasma glucose measurement (mass/volume) 102 mg/dL 70-105 Serum or plasma calcium measurement (mass/volume) 9.5 mg/dL 8.5-10.1 Serum or plasma total bilirubin measurement (mass/volume) 0.5 mg/dL 0.1-1.0 Serum or plasma alkaline phosphatase measurement (enzymatic activity/volume) 67 U/L 40-136 Serum or plasma aspartate aminotransferase measurement (enzymatic activity/ volume) 21 U/L 5-34 Serum or plasma alanine aminotransferase measurement (enzymatic activity/volume ) 19 U/L 0-55 Serum or plasma protein measurement (mass/volume) 6.8 g/dL 6.4-8.2 Serum or plasma albumin measurement (mass/volume) 3.7 g/dL 3.2-4.5 Serum or plasma troponin i.cardiac measurement (mass/volume) - 01/04/17 07:54 Serum or plasma troponin i.cardiac measurement (mass/volume) < ng/mL <0.30 Bacterial blood culture - 01/04/17 07:54 Bacterial blood culture NG NRG Bacterial blood culture - 01/04/17 08:43 Bacterial blood culture NG NRG Complete blood count (CBC) with automated white blood cell (WBC) differential - 01/05/17 04:30 Blood leukocytes automated count (number/volume) 9.7 10*3/ uL 4.3-11.0 Blood erythrocytes automated count (number/volume) 3.36 10*6 /uL 4.35-5.85 Venous blood hemoglobin measurement (mass/volume) 10.5 g/dL 11.5-16.0 Blood hematocrit (volume fraction) 32 % 35-52 Automated erythrocyte mean corpuscular volume 95 [foz_us] 80-99 Automated erythrocyte mean corpuscular hemoglobin (mass per erythrocyte) 31 pg 25-34 Automated erythrocyte mean corpuscular hemoglobin concentration measurement ( mass/volume) 33 g/dL 32-36 Automated erythrocyte distribution width ratio 12.5 % 10.0-14.5 Automated blood platelet count (count/volume) 278 10*3/uL 130-400 Automated blood platelet mean volume measurement 8.8 [foz_us ] 7.4-10.4 Automated blood neutrophils/100 leukocytes 75 % 42-75 Automated blood lymphocytes/100 leukocytes 10 % 12-44 Blood monocytes/100 leukocytes 13 % 0-12 Automated blood eosinophils/100 leukocytes 2 % 0-10 Automated blood basophils/100 leukocytes 0 % 0-10 Blood neutrophils automated count (number/volume) 7.3 10*3 1.8-7.8 Blood lymphocytes automated count (number/volume) 1.0 10*3 1.0-4.0 Blood monocytes automated count (number/volume) 1.3 10*3 0.0-1.0 Automated eosinophil count 0.2 10*3/uL 0.0-0.3 Automated blood basophil count (count/volume) 0.0 10*3/uL 0.0-0.1 Comprehensive metabolic panel - 01/05/17 04:30 Serum or plasma sodium measurement (moles/volume) 137 mmol/ L 135-145 Serum or plasma potassium measurement (moles/volume) 4.2 mmol/L 3.6-5.0 Serum or plasma chloride measurement (moles/volume) 103 mmol /L 98-107 Carbon dioxide 23 mmol/L 21-32 Serum or plasma anion gap determination (moles/volume) 11 mmol/L 5-14 Serum or plasma urea nitrogen measurement (mass/volume) 17 mg/dL 7-18 Serum or plasma creatinine measurement (mass/volume) 1.03 mg /dL 0.60-1.30 Serum or plasma urea nitrogen/creatinine mass ratio 17 NRG Serum or plasma creatinine measurement with calculation of estimated glomerular filtration rate 52 NRG Serum or plasma glucose measurement (mass/volume) 78 mg/dL 70-105 Serum or plasma calcium measurement (mass/volume) 9.1 mg/dL 8.5-10.1 Serum or plasma total bilirubin measurement (mass/volume) 0.5 mg/dL 0.1-1.0 Serum or plasma alkaline phosphatase measurement (enzymatic activity/volume) 55 U/L 40-136 Serum or plasma aspartate aminotransferase measurement (enzymatic activity/ volume) 19 U/L 5-34 Serum or plasma alanine aminotransferase measurement (enzymatic activity/volume ) 15 U/L 0-55 Serum or plasma protein measurement (mass/volume) 6.0 g/dL 6.4-8.2 Serum or plasma albumin measurement (mass/volume) 3.2 g/dL 3.2-4.5 Automated blood complete blood count (hemogram) panel - 01/10/17 06:05 Blood leukocytes automated count (number/volume) 5.0 10*3/ uL 4.3-11.0 Blood erythrocytes automated count (number/volume) 3.30 10*6 /uL 4.35-5.85 Venous blood hemoglobin measurement (mass/volume) 10.2 g/dL 11.5-16.0 Blood hematocrit (volume fraction) 32 % 35-52 Automated erythrocyte mean corpuscular volume 96 [foz_us] 80-99 Automated erythrocyte mean corpuscular hemoglobin (mass per erythrocyte) 31 pg 25-34 Automated erythrocyte mean corpuscular hemoglobin concentration measurement ( mass/volume) 32 g/dL 32-36 Automated erythrocyte distribution width ratio 12.1 % 10.0-14.5 Automated blood platelet count (count/volume) 334 10*3/uL 130-400 Automated blood platelet mean volume measurement 8.0 [foz_us ] 7.4-10.4 Comprehensive metabolic panel - 01/10/17 06:05 Serum or plasma sodium measurement (moles/volume) 139 mmol/ L 135-145 Serum or plasma potassium measurement (moles/volume) 4.3 mmol/L 3.6-5.0 Serum or plasma chloride measurement (moles/volume) 100 mmol /L 98-107 Carbon dioxide 31 mmol/L 21-32 Serum or plasma anion gap determination (moles/volume) 8 mmol/L 5-14 Serum or plasma urea nitrogen measurement (mass/volume) 15 mg/dL 7-18 Serum or plasma creatinine measurement (mass/volume) 0.88 mg /dL 0.60-1.30 Serum or plasma urea nitrogen/creatinine mass ratio 17 NRG Serum or plasma creatinine measurement with calculation of estimated glomerular filtration rate > NRG Serum or plasma glucose measurement (mass/volume) 86 mg/dL 70-105 Serum or plasma calcium measurement (mass/volume) 9.4 mg/dL 8.5-10.1 Serum or plasma total bilirubin measurement (mass/volume) 0.2 mg/dL 0.1-1.0 Serum or plasma alkaline phosphatase measurement (enzymatic activity/volume) 54 U/L 40-136 Serum or plasma aspartate aminotransferase measurement (enzymatic activity/ volume) 25 U/L 5-34 Serum or plasma alanine aminotransferase measurement (enzymatic activity/volume ) 19 U/L 0-55 Serum or plasma protein measurement (mass/volume) 6.2 g/dL 6.4-8.2 Serum or plasma albumin measurement (mass/volume) 3.1 g/dL 3.2-4.5 Complete urinalysis with reflex to culture - 04/11/17 17:39 Urine color determination YELLOW NRG Urine clarity determination CLEAR NRG Urine pH measurement by test strip 8 5- 9 Specific gravity of urine by test strip 1.010 1.016-1.022 Urine protein assay by test strip, semi-quantitative 1+ NEGATIVE Urine glucose detection by automated test strip NEGATIVE NEGATIVE Erythrocytes detection in urine sediment by light microscopy 1+ NEGATIVE Urine ketones detection by automated test strip NEGATIVE NEGATIVE Urine nitrite detection by test strip NEGATIVE NEGATIVE Urine total bilirubin detection by test strip NEGATIVE NEGATIVE Urine urobilinogen measurement by automated test strip (mass/volume) NORMAL NORMAL Urine leukocyte esterase detection by dipstick 3+ NEGATIVE Automated urine sediment erythrocyte count by microscopy (number/high power field) [HPF] NRG Automated urine sediment leukocyte count by microscopy (number/high power field ) [HPF] NRG Bacteria detection in urine sediment by light microscopy NEGATIVE NRG Squamous epithelial cells detection in urine sediment by light microscopy RARE NRG Crystals detection in urine sediment by light microscopy NONE NRG Casts detection in urine sediment by light microscopy NONE NRG Mucus detection in urine sediment by light microscopy NEGATIVE NRG Complete urinalysis with reflex to culture YES NRG Bacterial urine culture - 04/11/17 17:39 Bacterial urine culture [id number] NRG COLONY COUNT <10,000 NRG FREE TEXT ENTRY 2 OTHER GRAM POSITIVE ORGANISMS <10,000/ML NRG Complete blood count (CBC) with automated white blood cell (WBC) differential - 04/11/17 18:00 Blood leukocytes automated count (number/volume) 17.8 10*3/ uL 4.3-11.0 Blood erythrocytes automated count (number/volume) 3.86 10*6 /uL 4.35-5.85 Venous blood hemoglobin measurement (mass/volume) 12.0 g/dL 11.5-16.0 Blood hematocrit (volume fraction) 38 % 35-52 Automated erythrocyte mean corpuscular volume 97 [foz_us] 80-99 Automated erythrocyte mean corpuscular hemoglobin (mass per erythrocyte) 31 pg 25-34 Automated erythrocyte mean corpuscular hemoglobin concentration measurement ( mass/volume) 32 g/dL 32-36 Automated erythrocyte distribution width ratio 12.7 % 10.0-14.5 Automated blood platelet count (count/volume) 269 10*3/uL 130-400 Automated blood platelet mean volume measurement 9.1 [foz_us ] 7.4-10.4 Automated blood neutrophils/100 leukocytes 89 % 42-75 Automated blood lymphocytes/100 leukocytes 5 % 12-44 Blood monocytes/100 leukocytes 5 % 0-12 Automated blood eosinophils/100 leukocytes 1 % 0-10 Automated blood basophils/100 leukocytes 0 % 0-10 Blood neutrophils automated count (number/volume) 15.9 10*3 1.8-7.8 Blood lymphocytes automated count (number/volume) 0.8 10*3 1.0-4.0 Blood monocytes automated count (number/volume) 0.9 10*3 0.0-1.0 Automated eosinophil count 0.2 10*3/uL 0.0-0.3 Automated blood basophil count (count/volume) 0.0 10*3/uL 0.0-0.1 PT panel in platelet poor plasma by coagulation assay - 04/11/17 18:00 Prothrombin time (PT) in platelet poor plasma by coagulation assay 11.7 s 12.2-14.7 INR in platelet poor plasma or blood by coagulation assay 0.9 0.8-1.4 Activated partial thromboplastin time (aPTT) in platelet poor plasma bycoagulation assay - 04/11/17 18:00 Activated partial thromboplastin time (aPTT) in platelet poor plasma bycoagulation assay 30 s 24-35 Comprehensive metabolic panel - 04/11/17 18:00 Serum or plasma sodium measurement (moles/volume) 140 mmol/ L 135-145 Serum or plasma potassium measurement (moles/volume) 4.2 mmol/L 3.6-5.0 Serum or plasma chloride measurement (moles/volume) 101 mmol /L 98-107 Carbon dioxide 28 mmol/L 21-32 Serum or plasma anion gap determination (moles/volume) 11 mmol/L 5-14 Serum or plasma urea nitrogen measurement (mass/volume) 14 mg/dL 7-18 Serum or plasma creatinine measurement (mass/volume) 1.22 mg /dL 0.60-1.30 Serum or plasma urea nitrogen/creatinine mass ratio 11 NRG Serum or plasma creatinine measurement with calculation of estimated glomerular filtration rate 43 NRG Serum or plasma glucose measurement (mass/volume) 100 mg/dL 70-105 Serum or plasma calcium measurement (mass/volume) 10.0 mg/ dL 8.5-10.1 Serum or plasma total bilirubin measurement (mass/volume) 0.5 mg/dL 0.1-1.0 Serum or plasma alkaline phosphatase measurement (enzymatic activity/volume) 62 U/L 40-136 Serum or plasma aspartate aminotransferase measurement (enzymatic activity/ volume) 27 U/L 5-34 Serum or plasma alanine aminotransferase measurement (enzymatic activity/volume ) 20 U/L 0-55 Serum or plasma protein measurement (mass/volume) 7.7 g/dL 6.4-8.2 Serum or plasma albumin measurement (mass/volume) 4.2 g/dL 3.2-4.5 Blood lactic acid measurement (moles/volume) - 04/11/17 18:00 Blood lactic acid measurement (moles/volume) 1.55 mmol/L 0.50-2.00 Blood manual differential performed detection - 04/11/17 18:00 Blood monocytes/100 leukocytes 5 % NRG Manual blood segmented neutrophils/100 leukocytes 85 % NRG Blood band neutrophils/100 leukocytes 5 % NRG Manual blood lymphocytes/100 leukocytes 5 % NRG Manual eosinophils/100 leukocytes in nose 0 % NRG Manual blood basophils/100 leukocytes 0 % NRG Blood erythrocyte morphology finding identification NORMAL NRG Bacterial blood culture - 04/11/17 18:00 FREE TEXT EXTERNAL SENSITIVITY REPORTED 04/13 06:55 NRG QUANTITY OF GROWTH Isolated NRG Bacterial blood culture SEE [facility] Bacterial susceptibility panel - 04/11/17 18:00 Gentamicin susceptibility test by minimum inhibitory concentration S NRG Erythromycin susceptibility test by minimum inhibitory concentration 0.5 NRG Ampicillin susceptibility test by minimum inhibitory concentration <= NRG Linezolid susceptibility test by minimum inhibitory concentration 2 NRG Bacterial blood culture - 04/11/17 18:17 Bacterial blood culture NG NRG Complete blood count (CBC) with automated white blood cell (WBC) differential - 04/12/17 05:47 Blood leukocytes automated count (number/volume) 19.5 10*3/ uL 4.3-11.0 Blood erythrocytes automated count (number/volume) 3.31 10*6 /uL 4.35-5.85 Venous blood hemoglobin measurement (mass/volume) 10.4 g/dL 11.5-16.0 Blood hematocrit (volume fraction) 33 % 35-52 Automated erythrocyte mean corpuscular volume 99 [foz_us] 80-99 Automated erythrocyte mean corpuscular hemoglobin (mass per erythrocyte) 31 pg 25-34 Automated erythrocyte mean corpuscular hemoglobin concentration measurement ( mass/volume) 32 g/dL 32-36 Automated erythrocyte distribution width ratio 12.8 % 10.0-14.5 Automated blood platelet count (count/volume) 228 10*3/uL 130-400 Automated blood platelet mean volume measurement 8.9 [foz_us ] 7.4-10.4 Automated blood neutrophils/100 leukocytes 86 % 42-75 Automated blood lymphocytes/100 leukocytes 6 % 12-44 Blood monocytes/100 leukocytes 7 % 0-12 Automated blood eosinophils/100 leukocytes 1 % 0-10 Automated blood basophils/100 leukocytes 0 % 0-10 Blood neutrophils automated count (number/volume) 16.8 10*3 1.8-7.8 Blood lymphocytes automated count (number/volume) 1.3 10*3 1.0-4.0 Blood monocytes automated count (number/volume) 1.4 10*3 0.0-1.0 Automated eosinophil count 0.1 10*3/uL 0.0-0.3 Automated blood basophil count (count/volume) 0.0 10*3/uL 0.0-0.1 Comprehensive metabolic panel - 04/12/17 05:47 Serum or plasma sodium measurement (moles/volume) 142 mmol/ L 135-145 Serum or plasma potassium measurement (moles/volume) 4.5 mmol/L 3.6-5.0 Serum or plasma chloride measurement (moles/volume) 110 mmol /L 98-107 Carbon dioxide 25 mmol/L 21-32 Serum or plasma anion gap determination (moles/volume) 7 mmol/L 5-14 Serum or plasma urea nitrogen measurement (mass/volume) 11 mg/dL 7-18 Serum or plasma creatinine measurement (mass/volume) 0.93 mg /dL 0.60-1.30 Serum or plasma urea nitrogen/creatinine mass ratio 12 NRG Serum or plasma creatinine measurement with calculation of estimated glomerular filtration rate 58 NRG Serum or plasma glucose measurement (mass/volume) 88 mg/dL 70-105 Serum or plasma calcium measurement (mass/volume) 8.6 mg/dL 8.5-10.1 Serum or plasma total bilirubin measurement (mass/volume) 0.6 mg/dL 0.1-1.0 Serum or plasma alkaline phosphatase measurement (enzymatic activity/volume) 46 U/L 40-136 Serum or plasma aspartate aminotransferase measurement (enzymatic activity/ volume) 23 U/L 5-34 Serum or plasma alanine aminotransferase measurement (enzymatic activity/volume ) 17 U/L 0-55 Serum or plasma protein measurement (mass/volume) 6.0 g/dL 6.4-8.2 Serum or plasma albumin measurement (mass/volume) 3.3 g/dL 3.2-4.5 Automated blood complete blood count (hemogram) panel - 04/13/17 05:46 Blood leukocytes automated count (number/volume) 18.3 10*3/ uL 4.3-11.0 Blood erythrocytes automated count (number/volume) 3.48 10*6 /uL 4.35-5.85 Venous blood hemoglobin measurement (mass/volume) 10.9 g/dL 11.5-16.0 Blood hematocrit (volume fraction) 34 % 35-52 Automated erythrocyte mean corpuscular volume 98 [foz_us] 80-99 Automated erythrocyte mean corpuscular hemoglobin (mass per erythrocyte) 31 pg 25-34 Automated erythrocyte mean corpuscular hemoglobin concentration measurement ( mass/volume) 32 g/dL 32-36 Automated erythrocyte distribution width ratio 12.8 % 10.0-14.5 Automated blood platelet count (count/volume) 234 10*3/uL 130-400 Automated blood platelet mean volume measurement 9.4 [foz_us ] 7.4-10.4 Comprehensive metabolic panel - 04/13/17 05:46 Serum or plasma sodium measurement (moles/volume) 141 mmol/ L 135-145 Serum or plasma potassium measurement (moles/volume) 4.0 mmol/L 3.6-5.0 Serum or plasma chloride measurement (moles/volume) 106 mmol /L 98-107 Carbon dioxide 27 mmol/L 21-32 Serum or plasma anion gap determination (moles/volume) 8 mmol/L 5-14 Serum or plasma urea nitrogen measurement (mass/volume) 10 mg/dL 7-18 Serum or plasma creatinine measurement (mass/volume) 0.94 mg /dL 0.60-1.30 Serum or plasma urea nitrogen/creatinine mass ratio 11 NRG Serum or plasma creatinine measurement with calculation of estimated glomerular filtration rate 58 NRG Serum or plasma glucose measurement (mass/volume) 83 mg/dL 70-105 Serum or plasma calcium measurement (mass/volume) 9.4 mg/dL 8.5-10.1 Serum or plasma total bilirubin measurement (mass/volume) 0.7 mg/dL 0.1-1.0 Serum or plasma alkaline phosphatase measurement (enzymatic activity/volume) 58 U/L 40-136 Serum or plasma aspartate aminotransferase measurement (enzymatic activity/ volume) 28 U/L 5-34 Serum or plasma alanine aminotransferase measurement (enzymatic activity/volume ) 21 U/L 0-55 Serum or plasma protein measurement (mass/volume) 6.6 g/dL 6.4-8.2 Serum or plasma albumin measurement (mass/volume) 3.4 g/dL 3.2-4.5 Serum or plasma gentamicin measurement (mass/volume) - 04/13/17 20:35 Serum or plasma gentamicin measurement (mass/volume) 8.4 ug/ mL <=10.0 Complete blood count (CBC) with automated white blood cell (WBC) differential - 04/14/17 05:52 Blood leukocytes automated count (number/volume) 14.2 10*3/ uL 4.3-11.0 Blood erythrocytes automated count (number/volume) 3.23 10*6 /uL 4.35-5.85 Venous blood hemoglobin measurement (mass/volume) 10.1 g/dL 11.5-16.0 Blood hematocrit (volume fraction) 31 % 35-52 Automated erythrocyte mean corpuscular volume 97 [foz_us] 80-99 Automated erythrocyte mean corpuscular hemoglobin (mass per erythrocyte) 31 pg 25-34 Automated erythrocyte mean corpuscular hemoglobin concentration measurement ( mass/volume) 32 g/dL 32-36 Automated erythrocyte distribution width ratio 12.5 % 10.0-14.5 Automated blood platelet count (count/volume) 230 10*3/uL 130-400 Automated blood platelet mean volume measurement 9.4 [foz_us ] 7.4-10.4 Automated blood neutrophils/100 leukocytes 84 % 42-75 Automated blood lymphocytes/100 leukocytes 6 % 12-44 Blood monocytes/100 leukocytes 8 % 0-12 Automated blood eosinophils/100 leukocytes 2 % 0-10 Automated blood basophils/100 leukocytes 0 % 0-10 Blood neutrophils automated count (number/volume) 11.9 10*3 1.8-7.8 Blood lymphocytes automated count (number/volume) 0.8 10*3 1.0-4.0 Blood monocytes automated count (number/volume) 1.1 10*3 0.0-1.0 Automated eosinophil count 0.3 10*3/uL 0.0-0.3 Automated blood basophil count (count/volume) 0.0 10*3/uL 0.0-0.1 Whole blood basic metabolic panel - 04/14/17 05:52 Serum or plasma sodium measurement (moles/volume) 139 mmol/ L 135-145 Serum or plasma potassium measurement (moles/volume) 3.8 mmol/L 3.6-5.0 Serum or plasma chloride measurement (moles/volume) 104 mmol /L 98-107 Carbon dioxide 24 mmol/L 21-32 Serum or plasma anion gap determination (moles/volume) 11 mmol/L 5-14 Serum or plasma urea nitrogen measurement (mass/volume) 13 mg/dL 7-18 Serum or plasma creatinine measurement (mass/volume) 0.86 mg /dL 0.60-1.30 Serum or plasma urea nitrogen/creatinine mass ratio 15 NRG Serum or plasma creatinine measurement with calculation of estimated glomerular filtration rate > NRG Serum or plasma glucose measurement (mass/volume) 87 mg/dL 70-105 Serum or plasma calcium measurement (mass/volume) 9.5 mg/dL 8.5-10.1 Complete blood count (CBC) with automated white blood cell (WBC) differential - 04/15/17 07:49 Blood leukocytes automated count (number/volume) 11.1 10*3/ uL 4.3-11.0 Blood erythrocytes automated count (number/volume) 3.68 10*6 /uL 4.35-5.85 Venous blood hemoglobin measurement (mass/volume) 11.5 g/dL 11.5-16.0 Blood hematocrit (volume fraction) 36 % 35-52 Automated erythrocyte mean corpuscular volume 97 [foz_us] 80-99 Automated erythrocyte mean corpuscular hemoglobin (mass per erythrocyte) 31 pg 25-34 Automated erythrocyte mean corpuscular hemoglobin concentration measurement ( mass/volume) 32 g/dL 32-36 Automated erythrocyte distribution width ratio 12.8 % 10.0-14.5 Automated blood platelet count (count/volume) 313 10*3/uL 130-400 Automated blood platelet mean volume measurement 9.0 [foz_us ] 7.4-10.4 Automated blood neutrophils/100 leukocytes 76 % 42-75 Automated blood lymphocytes/100 leukocytes 10 % 12-44 Blood monocytes/100 leukocytes 11 % 0-12 Automated blood eosinophils/100 leukocytes 4 % 0-10 Automated blood basophils/100 leukocytes 0 % 0-10 Blood neutrophils automated count (number/volume) 8.5 10*3 1.8-7.8 Blood lymphocytes automated count (number/volume) 1.1 10*3 1.0-4.0 Blood monocytes automated count (number/volume) 1.2 10*3 0.0-1.0 Automated eosinophil count 0.4 10*3/uL 0.0-0.3 Automated blood basophil count (count/volume) 0.0 10*3/uL 0.0-0.1 Whole blood basic metabolic panel - 04/15/17 07:49 Serum or plasma sodium measurement (moles/volume) 142 mmol/ L 135-145 Serum or plasma potassium measurement (moles/volume) 3.7 mmol/L 3.6-5.0 Serum or plasma chloride measurement (moles/volume) 102 mmol /L 98-107 Carbon dioxide 30 mmol/L 21-32 Serum or plasma anion gap determination (moles/volume) 10 mmol/L 5-14 Serum or plasma urea nitrogen measurement (mass/volume) 16 mg/dL 7-18 Serum or plasma creatinine measurement (mass/volume) 0.93 mg /dL 0.60-1.30 Serum or plasma urea nitrogen/creatinine mass ratio 17 NRG Serum or plasma creatinine measurement with calculation of estimated glomerular filtration rate 58 NRG Serum or plasma glucose measurement (mass/volume) 103 mg/dL 70-105 Serum or plasma calcium measurement (mass/volume) 9.9 mg/dL 8.5-10.1 Complete blood count (CBC) with automated white blood cell (WBC) differential - 04/16/17 06:20 Blood leukocytes automated count (number/volume) 8.7 10*3/ uL 4.3-11.0 Blood erythrocytes automated count (number/volume) 3.13 10*6 /uL 4.35-5.85 Venous blood hemoglobin measurement (mass/volume) 9.7 g/dL 11.5-16.0 Blood hematocrit (volume fraction) 31 % 35-52 Automated erythrocyte mean corpuscular volume 98 [foz_us] 80-99 Automated erythrocyte mean corpuscular hemoglobin (mass per erythrocyte) 31 pg 25-34 Automated erythrocyte mean corpuscular hemoglobin concentration measurement ( mass/volume) 32 g/dL 32-36 Automated erythrocyte distribution width ratio 12.5 % 10.0-14.5 Automated blood platelet count (count/volume) 275 10*3/uL 130-400 Automated blood platelet mean volume measurement 8.6 [foz_us ] 7.4-10.4 Automated blood neutrophils/100 leukocytes 68 % 42-75 Automated blood lymphocytes/100 leukocytes 13 % 12-44 Blood monocytes/100 leukocytes 15 % 0-12 Automated blood eosinophils/100 leukocytes 5 % 0-10 Automated blood basophils/100 leukocytes 0 % 0-10 Blood neutrophils automated count (number/volume) 5.9 10*3 1.8-7.8 Blood lymphocytes automated count (number/volume) 1.1 10*3 1.0-4.0 Blood monocytes automated count (number/volume) 1.3 10*3 0.0-1.0 Automated eosinophil count 0.4 10*3/uL 0.0-0.3 Automated blood basophil count (count/volume) 0.0 10*3/uL 0.0-0.1 Comprehensive metabolic panel - 04/16/17 06:20 Serum or plasma sodium measurement (moles/volume) 139 mmol/ L 135-145 Serum or plasma potassium measurement (moles/volume) 4.0 mmol/L 3.6-5.0 Serum or plasma chloride measurement (moles/volume) 100 mmol /L 98-107 Carbon dioxide 29 mmol/L 21-32 Serum or plasma anion gap determination (moles/volume) 10 mmol/L 5-14 Serum or plasma urea nitrogen measurement (mass/volume) 18 mg/dL 7-18 Serum or plasma creatinine measurement (mass/volume) 0.92 mg /dL 0.60-1.30 Serum or plasma urea nitrogen/creatinine mass ratio 20 NRG Serum or plasma creatinine measurement with calculation of estimated glomerular filtration rate 59 NRG Serum or plasma glucose measurement (mass/volume) 95 mg/dL 70-105 Serum or plasma calcium measurement (mass/volume) 9.6 mg/dL 8.5-10.1 Serum or plasma total bilirubin measurement (mass/volume) 0.4 mg/dL 0.1-1.0 Serum or plasma alkaline phosphatase measurement (enzymatic activity/volume) 63 U/L 40-136 Serum or plasma aspartate aminotransferase measurement (enzymatic activity/ volume) 26 U/L 5-34 Serum or plasma alanine aminotransferase measurement (enzymatic activity/volume ) 22 U/L 0-55 Serum or plasma protein measurement (mass/volume) 6.0 g/dL 6.4-8.2 Serum or plasma albumin measurement (mass/volume) 2.9 g/dL 3.2-4.5 Magnesium - 04/16/17 06:20 Magnesium 1.5 mg/dL 1.8-2.4 Automated blood complete blood count (hemogram) panel - 04/17/17 04:09 Blood leukocytes automated count (number/volume) 8.4 10*3/ uL 4.3-11.0 Blood erythrocytes automated count (number/volume) 3.06 10*6 /uL 4.35-5.85 Venous blood hemoglobin measurement (mass/volume) 9.5 g/dL 11.5-16.0 Blood hematocrit (volume fraction) 30 % 35-52 Automated erythrocyte mean corpuscular volume 98 [foz_us] 80-99 Automated erythrocyte mean corpuscular hemoglobin (mass per erythrocyte) 31 pg 25-34 Automated erythrocyte mean corpuscular hemoglobin concentration measurement ( mass/volume) 32 g/dL 32-36 Automated erythrocyte distribution width ratio 12.2 % 10.0-14.5 Automated blood platelet count (count/volume) 312 10*3/uL 130-400 Automated blood platelet mean volume measurement 9.1 [foz_us ] 7.4-10.4 Whole blood basic metabolic panel - 04/17/17 04:09 Serum or plasma sodium measurement (moles/volume) 139 mmol/ L 135-145 Serum or plasma potassium measurement (moles/volume) 3.8 mmol/L 3.6-5.0 Serum or plasma chloride measurement (moles/volume) 98 mmol/ L 98-107 Carbon dioxide 29 mmol/L 21-32 Serum or plasma anion gap determination (moles/volume) 12 mmol/L 5-14 Serum or plasma urea nitrogen measurement (mass/volume) 21 mg/dL 7-18 Serum or plasma creatinine measurement (mass/volume) 1.02 mg /dL 0.60-1.30 Serum or plasma urea nitrogen/creatinine mass ratio 21 NRG Serum or plasma creatinine measurement with calculation of estimated glomerular filtration rate 53 NRG Serum or plasma glucose measurement (mass/volume) 94 mg/dL 70-105 Serum or plasma calcium measurement (mass/volume) 9.8 mg/dL 8.5-10.1 Magnesium - 04/17/17 04:09 Magnesium 1.9 mg/dL 1.8-2.4 Complete blood count (CBC) with automated white blood cell (WBC) differential - 04/19/17 05:25 Blood leukocytes automated count (number/volume) 4.9 10*3/ uL 4.3-11.0 Blood erythrocytes automated count (number/volume) 2.94 10*6 /uL 4.35-5.85 Venous blood hemoglobin measurement (mass/volume) 9.1 g/dL 11.5-16.0 Blood hematocrit (volume fraction) 29 % 35-52 Automated erythrocyte mean corpuscular volume 99 [foz_us] 80-99 Automated erythrocyte mean corpuscular hemoglobin (mass per erythrocyte) 31 pg 25-34 Automated erythrocyte mean corpuscular hemoglobin concentration measurement ( mass/volume) 31 g/dL 32-36 Automated erythrocyte distribution width ratio 12.1 % 10.0-14.5 Automated blood platelet count (count/volume) 349 10*3/uL 130-400 Automated blood platelet mean volume measurement 8.5 [foz_us ] 7.4-10.4 Automated blood neutrophils/100 leukocytes 49 % 42-75 Automated blood lymphocytes/100 leukocytes 27 % 12-44 Blood monocytes/100 leukocytes 17 % 0-12 Automated blood eosinophils/100 leukocytes 7 % 0-10 Automated blood basophils/100 leukocytes 1 % 0-10 Blood neutrophils automated count (number/volume) 2.4 10*3 1.8-7.8 Blood lymphocytes automated count (number/volume) 1.3 10*3 1.0-4.0 Blood monocytes automated count (number/volume) 0.8 10*3 0.0-1.0 Automated eosinophil count 0.3 10*3/uL 0.0-0.3 Automated blood basophil count (count/volume) 0.0 10*3/uL 0.0-0.1 Whole blood basic metabolic panel - 04/19/17 05:25 Serum or plasma sodium measurement (moles/volume) 142 mmol/ L 135-145 Serum or plasma potassium measurement (moles/volume) 4.1 mmol/L 3.6-5.0 Serum or plasma chloride measurement (moles/volume) 101 mmol /L 98-107 Carbon dioxide 35 mmol/L 21-32 Serum or plasma anion gap determination (moles/volume) 6 mmol/L 5-14 Serum or plasma urea nitrogen measurement (mass/volume) 26 mg/dL 7-18 Serum or plasma creatinine measurement (mass/volume) 1.10 mg /dL 0.60-1.30 Serum or plasma urea nitrogen/creatinine mass ratio 24 NRG Serum or plasma creatinine measurement with calculation of estimated glomerular filtration rate 48 NRG Serum or plasma glucose measurement (mass/volume) 91 mg/dL 70-105 Serum or plasma calcium measurement (mass/volume) 9.7 mg/dL 8.5-10.1 Serum or plasma gentamicin measurement (mass/volume) - 04/21/17 21:02 Serum or plasma gentamicin measurement (mass/volume) 11.5 ug /mL <=10.0 Complete blood count (CBC) with automated white blood cell (WBC) differential - 04/22/17 03:57 Blood leukocytes automated count (number/volume) 3.4 10*3/ uL 4.3-11.0 Blood erythrocytes automated count (number/volume) 2.75 10*6 /uL 4.35-5.85 Venous blood hemoglobin measurement (mass/volume) 8.5 g/dL 11.5-16.0 Blood hematocrit (volume fraction) 27 % 35-52 Automated erythrocyte mean corpuscular volume 97 [foz_us] 80-99 Automated erythrocyte mean corpuscular hemoglobin (mass per erythrocyte) 31 pg 25-34 Automated erythrocyte mean corpuscular hemoglobin concentration measurement ( mass/volume) 32 g/dL 32-36 Automated erythrocyte distribution width ratio 11.6 % 10.0-14.5 Automated blood platelet count (count/volume) 358 10*3/uL 130-400 Automated blood platelet mean volume measurement 8.6 [foz_us ] 7.4-10.4 Automated blood neutrophils/100 leukocytes 48 % 42-75 Automated blood lymphocytes/100 leukocytes 27 % 12-44 Blood monocytes/100 leukocytes 22 % 0-12 Automated blood eosinophils/100 leukocytes 3 % 0-10 Automated blood basophils/100 leukocytes 0 % 0-10 Blood neutrophils automated count (number/volume) 1.6 10*3 1.8-7.8 Blood lymphocytes automated count (number/volume) 0.9 10*3 1.0-4.0 Blood monocytes automated count (number/volume) 0.7 10*3 0.0-1.0 Automated eosinophil count 0.1 10*3/uL 0.0-0.3 Automated blood basophil count (count/volume) 0.0 10*3/uL 0.0-0.1 Blood manual differential performed detection - 04/22/17 03:57 Blood monocytes/100 leukocytes 16 % NRG Manual blood segmented neutrophils/100 leukocytes 54 % NRG Blood band neutrophils/100 leukocytes 0 % NRG Manual blood lymphocytes/100 leukocytes 24 % NRG Manual eosinophils/100 leukocytes in nose 2 % NRG Manual blood basophils/100 leukocytes 0 % NRG Blood lymphocytes variant/100 leukocytes 4 % NRG Blood poikilocytosis detection by light microscopy SLIGHT NRG Blood hypochromia detection by light microscopy SLIGHT NRG Blood microcytes detection by light microscopy SLIGHT NRG Whole blood basic metabolic panel - 04/22/17 03:57 Serum or plasma sodium measurement (moles/volume) 139 mmol/ L 135-145 Serum or plasma potassium measurement (moles/volume) 4.0 mmol/L 3.6-5.0 Serum or plasma chloride measurement (moles/volume) 102 mmol /L 98-107 Carbon dioxide 28 mmol/L 21-32 Serum or plasma anion gap determination (moles/volume) 9 mmol/L 5-14 Serum or plasma urea nitrogen measurement (mass/volume) 19 mg/dL 7-18 Serum or plasma creatinine measurement (mass/volume) 1.24 mg /dL 0.60-1.30 Serum or plasma urea nitrogen/creatinine mass ratio 15 0-20 Serum or plasma creatinine measurement with calculation of estimated glomerular filtration rate 42 NRG Serum or plasma glucose measurement (mass/volume) 94 mg/dL 70-105 Serum or plasma calcium measurement (mass/volume) 8.7 mg/dL 8.5-10.1 Magnesium - 04/22/17 03:57 Magnesium 1.8 mg/dL 1.8-2.4 Complete blood count (CBC) with automated white blood cell (WBC) differential - 04/23/17 06:25 Blood leukocytes automated count (number/volume) 4.0 10*3/ uL 4.3-11.0 Blood erythrocytes automated count (number/volume) 2.97 10*6 /uL 4.35-5.85 Venous blood hemoglobin measurement (mass/volume) 9.1 g/dL 11.5-16.0 Blood hematocrit (volume fraction) 29 % 35-52 Automated erythrocyte mean corpuscular volume 96 [foz_us] 80-99 Automated erythrocyte mean corpuscular hemoglobin (mass per erythrocyte) 31 pg 25-34 Automated erythrocyte mean corpuscular hemoglobin concentration measurement ( mass/volume) 32 g/dL 32-36 Automated erythrocyte distribution width ratio 11.8 % 10.0-14.5 Automated blood platelet count (count/volume) 378 10*3/uL 130-400 Automated blood platelet mean volume measurement 8.6 [foz_us ] 7.4-10.4 Automated blood neutrophils/100 leukocytes 48 % 42-75 Automated blood lymphocytes/100 leukocytes 28 % 12-44 Blood monocytes/100 leukocytes 19 % 0-12 Automated blood eosinophils/100 leukocytes 4 % 0-10 Automated blood basophils/100 leukocytes 1 % 0-10 Blood neutrophils automated count (number/volume) 1.9 10*3 1.8-7.8 Blood lymphocytes automated count (number/volume) 1.1 10*3 1.0-4.0 Blood monocytes automated count (number/volume) 0.8 10*3 0.0-1.0 Automated eosinophil count 0.2 10*3/uL 0.0-0.3 Automated blood basophil count (count/volume) 0.0 10*3/uL 0.0-0.1 Stool occult blood screen - 04/23/17 07:20 Stool gastrointestinal hemoglobin detection POSITIVE NEGATIVE Complete blood count (CBC) with automated white blood cell (WBC) differential - 04/25/17 04:23 Blood leukocytes automated count (number/volume) 4.5 10*3/ uL 4.3-11.0 Blood erythrocytes automated count (number/volume) 2.89 10*6 /uL 4.35-5.85 Venous blood hemoglobin measurement (mass/volume) 8.9 g/dL 11.5-16.0 Blood hematocrit (volume fraction) 27 % 35-52 Automated erythrocyte mean corpuscular volume 94 [foz_us] 80-99 Automated erythrocyte mean corpuscular hemoglobin (mass per erythrocyte) 31 pg 25-34 Automated erythrocyte mean corpuscular hemoglobin concentration measurement ( mass/volume) 33 g/dL 32-36 Automated erythrocyte distribution width ratio 11.5 % 10.0-14.5 Automated blood platelet count (count/volume) 332 10*3/uL 130-400 Automated blood platelet mean volume measurement 8.8 [foz_us ] 7.4-10.4 Automated blood neutrophils/100 leukocytes 44 % 42-75 Automated blood lymphocytes/100 leukocytes 30 % 12-44 Blood monocytes/100 leukocytes 20 % 0-12 Automated blood eosinophils/100 leukocytes 5 % 0-10 Automated blood basophils/100 leukocytes 0 % 0-10 Blood neutrophils automated count (number/volume) 2.0 10*3 1.8-7.8 Blood lymphocytes automated count (number/volume) 1.4 10*3 1.0-4.0 Blood monocytes automated count (number/volume) 0.9 10*3 0.0-1.0 Automated eosinophil count 0.2 10*3/uL 0.0-0.3 Automated blood basophil count (count/volume) 0.0 10*3/uL 0.0-0.1 Comprehensive metabolic panel - 04/25/17 04:23 Serum or plasma sodium measurement (moles/volume) 136 mmol/ L 135-145 Serum or plasma potassium measurement (moles/volume) 4.5 mmol/L 3.6-5.0 Serum or plasma chloride measurement (moles/volume) 100 mmol /L 98-107 Carbon dioxide 27 mmol/L 21-32 Serum or plasma anion gap determination (moles/volume) 9 mmol/L 5-14 Serum or plasma urea nitrogen measurement (mass/volume) 23 mg/dL 7-18 Serum or plasma creatinine measurement (mass/volume) 1.43 mg /dL 0.60-1.30 Serum or plasma urea nitrogen/creatinine mass ratio 16 0-20 Serum or plasma creatinine measurement with calculation of estimated glomerular filtration rate 36 NRG Serum or plasma glucose measurement (mass/volume) 94 mg/dL 70-105 Serum or plasma calcium measurement (mass/volume) 8.6 mg/dL 8.5-10.1 Serum or plasma total bilirubin measurement (mass/volume) 0.3 mg/dL 0.1-1.0 Serum or plasma alkaline phosphatase measurement (enzymatic activity/volume) 62 U/L 40-136 Serum or plasma aspartate aminotransferase measurement (enzymatic activity/ volume) 23 U/L 5-34 Serum or plasma alanine aminotransferase measurement (enzymatic activity/volume ) 14 U/L 0-55 Serum or plasma protein measurement (mass/volume) 5.7 g/dL 6.4-8.2 Serum or plasma albumin measurement (mass/volume) 2.6 g/dL 3.2-4.5 Magnesium - 04/25/17 04:23 Magnesium 2.1 mg/dL 1.8-2.4 Serum or plasma lithium measurement (moles/volume) - 04/25/17 04:23 BNP level 113.0 pg/mL <100.0 Complete urinalysis with reflex to culture - 04/25/17 09:49 Urine color determination YELLOW NRG Urine clarity determination CLEAR NRG Urine pH measurement by test strip 6 5- 9 Specific gravity of urine by test strip 1.015 1.016-1.022 Urine protein assay by test strip, semi-quantitative 3+ NEGATIVE Urine glucose detection by automated test strip NEGATIVE NEGATIVE Erythrocytes detection in urine sediment by light microscopy 5+ NEGATIVE Urine ketones detection by automated test strip NEGATIVE NEGATIVE Urine nitrite detection by test strip NEGATIVE NEGATIVE Urine total bilirubin detection by test strip NEGATIVE NEGATIVE Urine urobilinogen measurement by automated test strip (mass/volume) NORMAL NORMAL Urine leukocyte esterase detection by dipstick 1+ NEGATIVE Automated urine sediment erythrocyte count by microscopy (number/high power field) [HPF] NRG Automated urine sediment leukocyte count by microscopy (number/high power field ) [HPF] NRG Bacteria detection in urine sediment by light microscopy TRACE NRG Crystals detection in urine sediment by light microscopy PRESENT NRG Casts detection in urine sediment by light microscopy NONE NRG Mucus detection in urine sediment by light microscopy NEGATIVE NRG Complete urinalysis with reflex to culture YES NRG Amorphous sediment detection in urine sediment by light microscopy FEW LORNE URATES NRG Bacterial urine culture - 04/25/17 09:49 Bacterial urine culture NG NRG Automated blood complete blood count (hemogram) panel - 04/26/17 04:15 Blood leukocytes automated count (number/volume) 4.5 10*3/ uL 4.3-11.0 Blood erythrocytes automated count (number/volume) 2.61 10*6 /uL 4.35-5.85 Venous blood hemoglobin measurement (mass/volume) 8.0 g/dL 11.5-16.0 Blood hematocrit (volume fraction) 24 % 35-52 Automated erythrocyte mean corpuscular volume 94 [foz_us] 80-99 Automated erythrocyte mean corpuscular hemoglobin (mass per erythrocyte) 31 pg 25-34 Automated erythrocyte mean corpuscular hemoglobin concentration measurement ( mass/volume) 33 g/dL 32-36 Automated erythrocyte distribution width ratio 11.4 % 10.0-14.5 Automated blood platelet count (count/volume) 339 10*3/uL 130-400 Automated blood platelet mean volume measurement 9.1 [foz_us ] 7.4-10.4 Whole blood basic metabolic panel - 04/26/17 04:15 Serum or plasma sodium measurement (moles/volume) 133 mmol/ L 135-145 Serum or plasma potassium measurement (moles/volume) 4.5 mmol/L 3.6-5.0 Serum or plasma chloride measurement (moles/volume) 98 mmol/ L 98-107 Carbon dioxide 27 mmol/L 21-32 Serum or plasma anion gap determination (moles/volume) 8 mmol/L 5-14 Serum or plasma urea nitrogen measurement (mass/volume) 25 mg/dL 7-18 Serum or plasma creatinine measurement (mass/volume) 1.48 mg /dL 0.60-1.30 Serum or plasma urea nitrogen/creatinine mass ratio 17 0-20 Serum or plasma creatinine measurement with calculation of estimated glomerular filtration rate 34 NRG Serum or plasma glucose measurement (mass/volume) 87 mg/dL 70-105 Serum or plasma calcium measurement (mass/volume) 8.6 mg/dL 8.5-10.1 Encounters ACCT No. Visit Date/Time Discharge Status Pt. Type Provider Facility Loc./Unit Complaint [id number] 04/11/2017 19:10:00 2016 08:31:00 DIS Outpatient MELODY MCGEE DO [facility] 4TH SEPSIS,UTI,COPD [id number] 01/08/2017 12:33:00 2016 11:15:00 DIS Inpatient MELODY MCGEE DO [facility] 4TH SWB LEFT UPPER LOBE PNEUMONIA [id number] 01/04/2017 11:15:00 2016 12:33:00 DIS Inpatient MELODY MCGEE DO [facility] 4TH LEFT UPPER LOBE PNA [id number] 03/24/2016 13:55:00 2015 15:00:00 DIS Outpatient MARY PEREZ APRN [facility] WOUNDCARE [id number] 08/29/2015 07:34:00 2014 23:59:59 CLS Outpatient SUMIT PAREDES FACC, CASSIE DUNLAPP CCDS [facility] CARD CARDIOMYOPATHY, CAD, ANXIETY, CHF, CHRONIC RENAL I [id number] 07/11/2015 17:25:00 2014 15:45:00 DIS Inpatient MELODY MCGEE DO [facility] SURGICAL ACUTE ABD PAIN [id number] 05/09/2015 07:06:00 2014 23:59:59 CLS Outpatient MELODY MCGEE DO [facility] LAB HLP,FATIGUE,OSTEOPORISIS, RENAL INSUFF [id number] 05/09/2015 07:02:00 2014 23:59:59 CLS Outpatient KEE DAMON [facility] LAB DIGOXIN THERAPY [id number] 03/06/2015 08:34:00 2014 23:59:59 CLS Outpatient GREGOR JOSEPH DO [facility] RAD COPD,DYSPNEA [id number] 03/01/2015 13:01:00 2014 23:59:59 CLS Outpatient HARDIK MCGEE DOQUELINE S [facility] RT COPD [id number] 02/13/2015 11:33:00 2014 23:59:59 CLS Outpatient ARELY BROOKS MELODY S [facility] RT COPD [id number] 10/08/2014 13:08:00 2013 23:59:59 CLS Outpatient ARELY BROOKS MELODY S [facility] RAD LEFT LOWER LOBE CONSOLIDATION W/PAIN [id number] 10/03/2014 11:07:00 2013 23:59:59 CLS Outpatient ARELY BROOKS MELODY S [facility] RAD DYSPNEA,PNEUMONIA,LUQ PAIN [id number] 09/14/2014 10:51:00 2013 16:45:00 DIS Inpatient ELIZABETHNDER DO MELODY S [facility] 4TH SWB-EXERCERBATION OF COPD [id number] 09/10/2014 16:44:00 2013 10:35:00 DIS Inpatient ARELY BROOKS MELODY S [facility] 4TH EXERCERBATION OF COPD [id number] 08/23/2014 12:18:00 2013 15:05:00 DIS Emergency TARIQ PAREEDS, JOE Marin [facility] ER NOSEBLEED [id number] 03/16/2014 07:04:00 2013 23:59:59 CLS Outpatient KEE DAMON [facility] LAB CAD CARDIOMYOPATHY HYPERLIPIDEMIA CHRONIC RENAL IN [id number] 09/11/2013 06:59:00 2012 23:59:59 CLS Outpatient KEE DAMON [facility] LAB CAD,HYPERLIPIDEMIA, [id number] 08/25/2013 10:26:00 2012 23:59:59 CLS Outpatient MELODY MCGEE DO [facility] RAD SCREENING,OSTEOPOROSIS [id number] 04/21/2013 09:17:00 2012 11:39:00 DIS Emergency TARIQ PAREDES, JOE Marin [facility] ER CP [id number] 04/20/2013 07:59:00 2012 23:59:59 CLS Outpatient KEE DAMON [facility] LAB HYPERTENSION,DIGOXIN [place] [id number] 03/15/2013 10:50:00 2012 23:59:59 CLS Outpatient SUMIT PAREDES FACC, CASSIE ROCHE CCDS [facility] CARD HTN [id number] 03/15/2013 07:09:00 2012 23:59:59 CLS Outpatient MELODY MCGEE DO [facility] LAB CAD,HTN [id number] 04/15/2017 08:48:00 ACT Inpatient MELODY MCGEE DO [facility] 4TH SWB-PNEUMONIA [id number] 04/09/2017 11:15:00 PEN Preadmit GREGOR JOSEPH DO [facility] RAD COPD,ATELECTASIS [id number] 03/18/2017 11:01:00 ACT Outpatient GREGOR JOSEPH DO [facility] RAD HYPOXIA [id number] 12/18/2016 12:09:00 ACT Outpatient MELODY MCGEE DO [facility] RAD CEPHALGIA [id number] 10/14/2016 09:50:00 ACT Outpatient MARTINA MONAHAN APRN [facility] RAD EMPHYSEMA LUNG,HYPOXIA,DYSPNEA [id number] 10/12/2016 07:27:00 ACT Outpatient MARTINA MONAHAN APRN [facility] RAD COPD,DYSPNEA,LUNG NODULE,UPPER RESP INFECTION [id number] 09/25/2016 07:09:00 ACT Outpatient SUMIT PAREDES FACCCASSIE FACP CCDS [facility] LAB CAD,CHF,COPD,CHRONIC RENAL INSUFFICIENCY,HLP [id number] 05/12/2016 06:52:00 ACT Outpatient KEE DAMON [facility] LAB CAD,HYPERLIPIDEMIA, [id number] 04/09/2016 13:00:00 ACT Outpatient GREGOR JOSEPH DO [facility] RAD COPD,LUNG NODULE [id number] 01/08/2016 08:33:00 ACT Outpatient MARTINA MONAHAN APRN [facility] RAD COPD,LUNG NODULE [id number] 01/02/2016 11:01:00 ACT Outpatient MELODY MCGEE DO [facility] RAD OSTEOPOROSIS [id number] 12/03/2015 07:06:00 ACT Outpatient KEE DAMON [facility] LAB HLP [id number] 12/03/2015 07:06:00 Document Registration [id number] 07/10/2015 09:27:00 Document Registration [id number] 12/12/2012 07:39:00 Document Registration [id number] 11/14/2012 07:28:00 Document Registration [id number] 11/02/2012 07:33:00 Document Registration [id number] 10/24/2012 07:25:00 Document Registration [id number] 10/20/2012 07:27:00 Document Registration [id number] 07/06/2012 15:00:00 Document Registration [id number] 06/25/2012 12:39:00 Document Registration [id number] 06/20/2012 16:08:00 Document Registration [id number] 04/19/2012 07:11:00 Document Registration [id number] 10/27/2011 08:05:00 Document Registration [id number] 07/30/2011 09:38:00 Document Registration [id number] 06/04/2011 07:16:00 Document Registration [id number] 05/29/2011 06:29:00 Document Registration [id number] 03/26/2011 13:29:00 Document Registration [id number] 03/23/2011 10:06:00 Document Registration [id number] 12/05/2010 07:38:00 Document Registration [id number] 07/21/2010 08:53:00 Document Registration
== END 2017-04-26 12:15 | disposition home health service (06) | DRG 871 ==
LOC: 4TH 08:48
PROVIDERS: ADMIT Family Medicine; ATTEND Family Medicine
DX: A41.81 Sepsis due to Enterococcus (principal); N39.0 Urinary tract infection, site not specified; J44.0 Chronic obstructive pulmonary disease with (acute) lower respiratory infection; J18.9 Pneumonia, unspecified organism; I10 Essential (primary) hypertension; K21.9 Gastro-esophageal reflux disease without esophagitis; E83.42 Hypomagnesemia; R60.0 Localized edema; R53.83 Other fatigue; I25.5 Ischemic cardiomyopathy; M19.91 Primary osteoarthritis, unspecified site; F43.10 Post-traumatic stress disorder, unspecified; F41.9 Anxiety disorder, unspecified; I25.10 Atherosclerotic heart disease of native coronary artery without angina pectoris; J30.2 Other seasonal allergic rhinitis; K57.90 Diverticulosis of intestine, part unspecified, without perforation or abscess without bleeding; K44.9 Diaphragmatic hernia without obstruction or gangrene; Z99.81 Dependence on supplemental oxygen; Z87.891 Personal history of nicotine dependence; B96.89 Other specified bacterial agents as the cause of diseases classified elsewhere; D64.9 Anemia, unspecified
CPT/HCPCS: 36415; 71020; 80048; 80053; 80170; 81000; 82274; 83735; 83880; 85007; 85025; 85027; 87088; 94640; 94664; 94760; 94761

== ENCOUNTER → 2017-04-29 | Outpatient (CLI) | payer MEDICARE ==
[~2017-04-29] MED LIST changes: -FUROSEMIDE 20 MG (LASIX) TAB PO SCH; -IBUPROFEN TABLET 200 MG TAB PO PRN; -KCL 10 MEQ TAB (MICRO K) PO SCH; -ONDANSETRON 4 MG/2 ML (SDV) Z0FRAN IV PRN; -PATIENT MAY USE OWN MEDS, ALL MC SCH
== END ==
DX: J18.9 Pneumonia, unspecified organism (principal); N39.0 Urinary tract infection, site not specified

== ENCOUNTER 2017-05-03 12:05 | Inpatient (IN) | payer MEDICARE ==
[~2017-05-03] VITALS: Ht 149.9 cm; Wt 48.1 kg
[2017-05-03] MEDS ORDERED: FUROSEMIDE 40 MG/4 ML INJ (LASIX) IVP NR (12:30)
[2017-05-03] MEDS ORDERED: KCL 20 MEQ TAB (K-DUR) PO NR (12:30)
[2017-05-03] MEDS ORDERED: ONDANSETRON 4 MG/2 ML (SDV) Z0FRAN IVP NR (12:45)
[2017-05-03] MEDS ORDERED: PATIENT MAY USE OWN MEDS, ALL MC SCH (12:45)
[2017-05-03] MEDS ORDERED: FAMOTIDINE 20MG/2ML IV (PEPCID) IVP NR (12:45)
[2017-05-03] MEDS ORDERED: RT-ALBUTEROL SULF 2.5 MG/3 ML PRE-MIX VIAL INH PRN (12:45)
[2017-05-03 12:48] VITALS: BP 196/92
--- NOTE | 2017-05-03 13:13 | Diagnostic Imaging Report ---
EXAMINATION: Portable upright radiograph of the chest. INDICATION: Shortness of breath. COMPARISON: 04/25/2017. FINDINGS: The lungs are hyperinflated. The right basilar airspace opacity is less dense on the current exam, suggestive of improving pneumonia. There is irregular scarring in the left lung apex, stable from multiple prior exams. The heart size is mildly enlarged. There is a small left effusion. No pneumothorax. IMPRESSION: 1. Improving right basilar infiltrate. Followup in 4 weeks is recommended to ensure complete resolution. 2. Stable scarring in the left lung apex. 3. COPD. Cardiomegaly. Dictated by: Dictated on workstation # [id number]
[2017-05-03] MEDS: methylPREDNISolone 40 MG/ML (Solu-MEDROL) VIAL IV SCH ×2 (13:20→21:42)
[2017-05-03] MEDS ORDERED: RT-IPRATROPIUM (ATROVENT) 0.5MG/2.5ML AMP IH SCH (14:00)
[2017-05-03] MEDS ORDERED: RT-ALBUTEROL/IPRATROPIUM 3 ML (DUONEB) VIAL INH SCH (14:00)
--- NOTE | 2017-05-03 14:45 | Occupational Therapy Eval ---
OT Evaluation-General/PLF Medical Diagnosis Admission Date May 03, 2017 at 12:25 Medical Diagnosis: pneumonia Onset Date: May 03, 2017 Therapy Diagnosis Therapy Diagnosis: decreased self care skills Height/Weight Height (Feet): 4 Height (Inches): 11.00 Weight (Pounds): 103 Weight (Ounces): 6.0 Referral Physician: Brandi Medical History Pertinent Medical History: Arthritis, COPD, GERD Additional Medical History appendectomy, cardiomyopathy, diverticulosis, anxiety, emphysema Reviewed History: Yes Social History Home: Single Level Current Living Status: Alone Entry Into Home: Stairs With Railing Steps Into Home: 5 ADL-Prior Level of Function ADL PLOF Comments Pt states she is normally independent with self care and mobility. Has assist to vacuum secondary to fatigue and SOA. Since dismissal from hospital last week , family has been bringing in meals. Pt states she hasn't been able to walk far enough to do much at home. DME/Equipment: Shower Drive Self: Yes OT Current Status Subjective Pt in bed, requesting to use restroom. Pt agrees to treatment. Mental Status/Objective Patient Orientation: Person, Place, Time, Situation Attachments: Oxygen Current Glasses/Contacts: Yes Hearing Aids: No Dentures/Partials: No Hand Dominance: Right Upper Extremity ROM Grossly WFL Upper Extremity Coordination Intact Upper Extremity Sensation intact per pt report ADL-Treatment ADL-Current Supine to sit with modified independence. Sit to stand with supervision. Gait to restroom with FWW with assist to manage O2 tubing. Transfer to toilet with supervision. Pt able to manage clothing and hygiene with SBA. Stood at sink to wash hands without assistance. Pt returned to [facility] for recovery break. Meal tray arrives. Pt able to feed self sandwich and drink from cup without assistance. Pt in bed with needs met and RN present after session. Functional [place] Measure 0=Not Assessed/NA 4=Minimal Assistance 1=Total Assistance 5=Supervision or Setup 2=Maximal Assistance 6=Modified [place] 3=Moderate Assistance 7=Complete IndependenceIRFPAI Quality Coding Scale 6 Independent with activity with or without an assistive device 5 Patient requires set up or clean up by helper. Patient completes activity by themselves 4 Supervision or touching assist (CGA). [place] provide cues , steadying assist 3 The helper provides less than half the effort to complete the activity 2 The helper provides more than half the effort to complete the activity 1 Dependent. The helper does all the effort to complete an activity 7 Patient refused to complete or attempt activity 9 The patient did not perform the activity before the current illness or injury 88 Not attempted due to Medical conditions or safety concerns Eating (FIM): 7 Eating (QC): 6 Toileting (FIM): 5 Toileting Hygiene (QC): 5 Transfers (B, C, W/C) (FIM): 5 Toilet/Commode Transfer (FIM): 4 Education OT Patient Education: Rehab process Teaching Recipient: Patient Teaching Methods: Discussion Response to Teaching: Verbalize Understanding OT Short Term Goals Short Term Goals 1=Demonstrate adherence to instructed precautions during ADL tasks. 2=Patient will verbalize/demonstrate understanding of assistive devices/ modifications for ADL. 3=Patient will improve strength/tolerance for activity to enable patient to perform ADL's. OT Manager Salt Goals Care Home Goals Time Frame: May 17, 2017 Eating (FIM): 6 Eating (QC): 6 Groomin Oral Hygiene (QC): 6 Bathing(FIM): 6 Upper Body Dressing(FIM): 6 Lower Body Dressing(FIM): 6 Toileting(FIM): 6 Toileting Hygiene (QC): 6 Toilet/Commode Transfer(FIM): 6 Toilet/Commode Transfer (QC): 6 Shower Transfer(FIM): 5 Additional Goals: 1-Demonstrate ADL Tasks, 2-Verbalize Understanding, 3- ImproveStrength/[place] 1=Demonstrate adherence to instructed precautions during ADL tasks. 2=Patient will verbalize/demonstrate understanding of assistive devices/ modifications for ADL. 3=Patient will improve strength/tolerance for activity to enable patient to perform ADL's. Goals established to promote increased functional independence and allow safe discharge. OT Education/Plan Problem List/Assessment Assessment: Decreased Activ Tolerance, Decreased Safety Aware, Dependent Transfers, Impaired Self-Care Skills Pt to benefit from skilled OT intervention for ADL training, transfers, strengthening, and home safety education to maximize level of function and allow safe discharge plan. Discharge Recommendations Plan/Recommendations: Continue POC Treatment Plan/Plan of Care Treatment,Training & Education: Yes Patient would benefit from OT for education, treatment and training to promote independence in ADL's, mobility, safety and/or upper extremity function for ADL' s. Plan of Care: ADL Retraining, Functional Mobility, UE Funct Exercise/Act Treatment Duration: May 17, 2017 # of days/week 5 Visits Per Week: 5 Agreement: Yes Rehab Potential: Fair Time/GCodes Start Time: 14:05 Stop Time: 14:28 Total Time Billed (hr/min): 23 Billed Treatment Time 1 visit, EVL(8minutes), ADL(15minutes) JARAD MARINO OT May 03, 2017 14:45
[2017-05-03] MEDS ORDERED: L.AC1CAP6 PO (14:46)
[2017-05-03] MEDS ORDERED: SENN-40 PO (14:46)
--- NOTE | 2017-05-03 15:46 | Physical Therapy Evaluation ---
PT Evaluation-General Medical Diagnosis Admission Date May 03, 2017 at 12:25 Medical Diagnosis: pneumonia Onset Date: May 03, 2017 Therapy Diagnosis Therapy Diagnosis: impaired mobility, strength, endurance Height/Weight Height (Feet): 4 Height (Inches): 11.00 Weight (Pounds): 103 Weight (Ounces): 6.0 Precautions Precautions/Isolations: Standard Precautions Referral Physician: Esther Paz DO Reason for Referral: Evaluation/Treatment Medical History Pertinent Medical History: Arthritis, COPD, GERD, ID Additional Medical History ischemic cardiomyopathy, anxiety, emphysema, surg (cataracts, lobectomy, gall bladder, thoracotomy, appendectomy) Current History to ER with SOB Reviewed History: Yes Social History Home: Single Level Current Living Status: Alone Entry Into Home: Stairs With Railing PT Steps Into Home: 5 Prior/Core FIM Prior Level of Function Functional [place] Measure 0=Not Assessed/NA 4=Minimal Assistance 1=Total Assistance 5=Supervision or Setup 2=Maximal Assistance 6=Modified [place] 3=Moderate Assistance 7=Complete [place] Bed Mobility: 7 Transfers (B,C,W/C) (FIM): 7 Gait: 7 PT Evaluation-Current Subjective Patient in bed pre tx, agrees to PT, she states she has a lot of back pain right now, 03/17. Pt/Family Goals to not be short of breath Objective Patient Orientation: Normal For Age Attachments: Oxygen 2L of O2 nasal canula ROM/Strength ROM Lower Extremities WNL Strenght Lower Extremities 4/5 gross bilateral lower extremities Integumentary/Posture Bowel Incontinence: No Bladder Incontinence: No Neuromuscular (Tone, Coordination, Reflexes) WNL Sensory Vision: Functional Hearing: Functional Hand Dominance: Right Sensation Right Lower Extremit: Intact Sensation Left Lower Extremity: Intact Transfers Functional [place] Measure 0=Not Assessed/NA 4=Minimal Assistance 1=Total Assistance 5=Supervision or Setup 2=Maximal Assistance 6=Modified [place] 3=Moderate Assistance 7=Complete [place] Transfers (B, C, W/C) (FIM): 4 Scootin Rollin Supine to/from Sit: 5 Sit to/from Stand: 4 Sit to Lying (QC): 4 Lying to Sitting/Side of Bed(Q: 4 Sit to Stand (QC): 4 Patient performs bed mobility with SBA, sit to stand with CGA Gait Does the Patient Walk?: Yes Mode of Locomotion: Walk Anticipated Mode of Locomotion: Walk Gait (FIM): 1 Distance: 30' Gait Level of Assist: 4 Gait Persons Needed: 1 Gait Assistive Device: FWW Comments/Gait Description Patient can ambulate 30' with a rolling walker with CGA, cues for purse lip breathing. Balance Sitting Static: Normal Sitting Dynamic: Normal Standing Static: Fair Standing Dynamic: Fair Special Test Comments Patient had to use the restroom and she displayed some unsafe behavior, letting go of the walker, and turning to go to sink, without assist. Treatment Patient was also toileted. Assessment/Needs Patient has impaired mobility, strength, endurance, balance, displays some unsafe behavior. Rehab Potential: Fair PT [place] Goals Custodial Goals PT Custodial Goals Time Frame: May 10, 2017 Transfers (B,C,W/C) (FIM): 5 Sit to Lying (QC): 6 Lying-Sitting on Side/Bed(QC): 6 Sit to Stand (QC): 5 Rollin Gait (FIM): 5 Distance: 150' Walk 50ft with 2 Turns (QC): 4 Walk 150 ft (QC): 4 Gait Level of Assist: 5 Gait Assistive Device: FWW PT Plan Problem List Problem List: Activity Tolerance, Functional Strength, Safety, Balance, Gait, Transfer, Bed Mobility Treatment/Plan Treatment Plan: Continue Plan of Care Treatment Plan: Bed Mobility, Education, Functional Activity [place], Functional Strength, Gait, Safety, Therapeutic Exercise, Transfers Treatment Duration: May 10, 2017 # of days/week 5-6 Visits Per Week: 5-6 Minutes/Day (M-F): 15-30 Minutes/Day (Sat/[place]): 15-30 Pt/Family Agrees w/Plan: Yes Safety Risks/Education Patient Education: Gait Training, Transfer Techniques, Correct Positioning, Safety Issues Teaching Recipient: Patient Teaching Methods: Demonstration, Discussion Response to Teaching: Reinforcement Needed Discharge Recommendations Plan Patient will perform bed mobility and transfer training, balance and endurance training, functional strengthening, stair training, gait training, and education , to improve functional mobility and independence at home. Therapy D/C Recommendations: Home w/ Family Support Time/GCodes Time In: 1505 Time Out: 1535 Total Billed Treatment Time: 30 Total Billed Treatment 1 visit EVL 15' GT 15' FLY SAAB PT May 03, 2017 15:46
[2017-05-03] MEDS: RT-ALBUTEROL SULF 2.5 MG/3 ML PRE-MIX VIAL INH SCH ×3 (16:02→21:32)
[2017-05-03 17:22] LABS: BILIRUBIN,URINE NEGATIVE (NEGATIVE); KETONES,URINE NEGATIVE (NEGATIVE); LEUKOCYTE ESTERASE ,URINE NEGATIVE (NEGATIVE); NITRITE,URINE NEGATIVE (NEGATIVE); PH,URINE 6.5 (5-9); PROTEIN,URINE 2+ (NEGATIVE); UROBILINOGEN,URINE NORMAL (NORMAL)
[2017-05-03 17:33] LABS: SQUAMOUS EPITHELIAL CELL,UR 0-2 /HPF
[2017-05-03] MEDS ORDERED: CALCIUM CARBONATE 500 MG (TUMS) TAB.CHEW PO PRN (18:15)
[2017-05-03 18:47] VITALS: BP 141/62
--- NOTE | 2017-05-03 20:01 | History & Physicial ---
History of Present Illness History of Present Illness Reason for visit/HPI This is a 76 year old female who had a recent acute care and SWING bed stay for UTI, sepsis, pneumonia, COPD, weakness and anemia. She had been sent home with home health and stated that she felt good the first 1-2 days that she was at home but then she started having more shortness of air and worsening weakness. She presented to my office today with weakness requiring a wheelchair, dyspnea and edema. It was felt that she was likely having and exacerbation of both her COPD and Chronic CHF being exacerbated by her underlying anemia. A direct admit back to [facility] bed was recommended for IV lasix, IV solumedrol, monitoring of H/H and resuming PT and OT for her exacerbated weakness. Date of Admission May 03, 2017 at 12:25 pm Time Seen by Provider: 11:30 I consulted on this patient on 05/03/17 19:52 Attending Physician Ruthie Paz DO Admitting Physician Ruthie Paz DO Consult Allergies and Home Medications Allergies Coded Allergies: diphenhydramine HCl (Unverified Allergy, Severe, anaphalaxis, 09/10/14) Pt states this happened several yrs ago and that she had almost forgotten about it because she has avoided t for so long. fentanyl (Unverified Allergy, Mild, 09/10/14) PT DOES NOT WANT TO TAKE--SHE STAES IT MADE HER COPD WORSE midazolam (Unverified Allergy, Mild, PT TAKE LIBRIUM AT HOME, 09/10/14) PT DOESN'T WANT TO TAKE--SHE STATED IT MADE HER COPD OWRSE. Beta-Blockers (Beta-Adrenergic Bloc (Verified Allergy, Unknown, 09/10/14) Cephalosporins (Verified Allergy, Unknown, HAS RECEIVED CEFEPIME IN PAST W /O PROBLEM, 09/14/14) Penicillins (Verified Allergy, Unknown, HAS REC AZACTAM IN PAST WITHOUT PROBLEMS, 09/10/14) risedronic acid (Verified Allergy, Unknown, 09/10/14) prednisone (Unverified Adverse Reaction, Intermediate, Large doses cause SOA, 09/10/14) meperidine (Unverified Adverse Reaction, Mild, NAUSEA, 09/10/14) propofol (Unverified Adverse Reaction, Mild, 09/10/14) PT DOES NOT WANT TO TAKE--SHE STATES IT MADE HER COPD WORSE erythromycin base (Verified Adverse Reaction, Unknown, MAKES PATIENT NAUSEADED, 09/10/14) Home Medications Albuterol Sulfate 2.5 Mg/3 Ml Vial.neb, 2.5 MG NEB Q3H PRN for SHORTNESS OF BREATH, (Reported) Albuterol Sulfate 1 Puff Puff, 2 PUFF IH Q4H PRN for SHORTNESS OF BREATH, ( Reported) 1 PUFF = 90 MCG Aspirin 81 Mg Tabec, 81 MG PO DAILY, (Reported) Carboxymethylcellulos/Glycerin 15 Ml Drops, 1 DROP OU TID, (Reported) Chlordiazepoxide HCl 25 Mg Capsule, 25 MG PO BID, (Reported) Digoxin 125 Mcg Tablet, 62.5 MG PO DAILY, (Reported) TAKES 1/2 OF A (125 MCG) TABLET Diltiazem HCl 120 Mg Cap.er.24h, 120 MG PO DAILY, (Reported) Famotidine 20 Mg Tablet, 20 MG PO BID, (Reported) Fluticasone/Salmeterol 1 Disk Inhp, 1 PUFF IH BID, (Reported) Furosemide 20 Mg Tablet, 20 MG PO DAILY, (Reported) Hydroxyzine HCl 10 Mg Tablet, 10 MG PO HS, (Reported) L.acidoph & Paracasei,B.lactis 1 Each Capsule, 1-2 CAP PO DAILY PRN for DIARRHEA , (Reported) Losartan Potassium 50 Mg Tablet, 50 MG PO BID, (Reported) Mirtazapine 30 Mg Tablet, 30 MG PO HS, (Reported) Josse/Polymyx B Sulf/Dexameth 3.5 Gm Oint...g., OU TWICE WEEKLY, (Reported) Potassium Chloride 10 Meq Tablet.er, 10 MEQ PO DAILY, (Reported) Sennosides/Docusate Sodium 1 Each Tablet, 2 TAB PO DAILY PRN for CONSTIPATION- 6TH LINE, (Reported) Simvastatin 40 Mg Tablet, 40 MG PO HS, (Reported) Tiotropium [place] 1 Inh Aerp, 1 CAP IH DAILY, (Reported) Past Kcalgsi-Vcvoaz-Ekdgef Hx Patient Social History Marrital Status: Employed/Student: retired Alcohol Use: Denies Use Recreational Drug Use: No Smoking Status: Former Smoker Former smoker/When Quit: Jul 09, 2006 Type Used: Cigarettes 2nd Hand Smoke Exposure: No Physical Abuse Screen: No Sexual Abuse: No Recent Foreign Travel: No Contact w/other who traveled: Yes Recent Hopitalizations: No Recent Infectious Disease Expo: No Immunizations Up To Date Tetanus Booster (TDap): More than 5yrs Date of Pneumonia Vaccine: Jul 09, 2012 Date of Influenza Vaccine: Aug 04, 2016 Seasonal Allergies Seasonal Allergies: Yes Surgeries HX Surgeries: Yes (thoracotomy) Surgeries: Appendectomy, Gallbladder, Tonsillectomy Respiratory Hx Respiratory Disorders: Yes (HOME O2 AT 2L) Cardiovascular Hx Cardiovascular Disorders: Yes (ISCHEMIC CARDIOMYOPATHY) Neurological Hx Neurological Disorders: No Reproductive System Hx Reproductive Disorders: No Sexually Transmitted Disease: No HIV/AIDS: No Female Reproductive Disorders: Denies Genitourinary Hx Genitourinary Disorders: No Gastrointestinal Hx Gastrointestinal Disorders: Yes Gastrointestinal Disorders: Gastroesophageal Reflux, Diverticulosis, Hemorrhoids, Hiatal Hernia, Gall Bladder Disease Musculoskeletal Hx Musculoskeletal Disorders: Yes Musculoskeletal Disorders: Arthritis Endocrine Hx Endocrine Disorders: No HEENT HX ENT Disorders: Yes HEENT Disorders: Cataract Loss of Vision: Denies Hearing Impairment: Hard of Hearing Cancer Hx Cancer: No Psychosocial Hx Psychiatric Problems: Yes Behavioral Health Disorders: Anxiety, PTSD Integumentary HX Skin/Integumentary Disorder: No Blood Transfusions Hx Blood Disorders: No Adverse Reaction to a Blood Tr: No Family Medical History Significant Family History: No Pertinent Family Hx Family Hx: Alcoholism SONS Asthma DAUGHTER SONS Cardiovascular disease 19 MOTHER Cataracts 19 MOTHER Deafness or hearing loss G8 SISTER Diabetes mellitus SONS Gastroenteritis SONS Headache disorder SONS Hypertension SONS Myocardial infarction 19 FATHER Psychosocial problem 19 MOTHER No Family History of: AIDS Abdominal aortic aneurysm Joey's disease Alzheimer's disease Aphasia Arthritis Cancer of mouth Colon cancer Completed stroke Congenital disease Congenital heart disease Coronary thrombosis Cystic fibrosis Dementia Drug abuse Dysphasia Fibrocystic disease of breast Glaucoma Hypercholesterolemia Infertility Kidney disease Neoplasm Not obtainable due to adoption Osteoporosis Parkinson's disease Prostate cancer Respiratory disorder Seizure disorder Severe allergy Thyroid disease Tuberculosis Visual disorder Constitutional: weakness EENTM: No blurred vision, No dental problems, No double vision, No ear discharge, No ear pain, No epistaxis, No eye pain, No hearing loss, No hoarseness, No mouth pain, No mouth swelling, No no symptoms reported, No nose congestion, No nose pain, No other, No see HPI, No tearing, No throat pain, No throat swelling, No vision loss Respiratory: dyspnea on exertion, short of breath Cardiovascular: edema Gastrointestinal: RUQ (over weekend--now resolved) Genitourinary: No no symptoms reported, No see HPI, No decreased output, No discharge, No dysuria, No frequency, No hematuria, No hesitancy, No incontinence , No nocturia, No pain, No other Musculoskeletal: back pain (left lower) Skin: No no symptoms reported, No see HPI, No change in color, No change in hair/nails, No dryness, No hx of skin cancer, No lesions, No lumps, No pruritus , No rash, No other Psychiatric/Neurological: Anxiety, Tremors, Weakness (generalized) Physical Exam Vital Signs Vital Sign - Last 12Hours 05/03/17 12:48 Temp 99.6 Pulse 93 Resp 20 B/P (MAP) 196/92 Pulse Ox 98 O2 Delivery Nasal Cannula O2 Flow Rate 2.00 Capillary Refill : General Appearance: Moderate Distress (respiratory) HEENT: Pale Conjunctivae (L), Pale Conjunctivae (R) Neck: Non Tender, Supple Respiratory: Lungs Clear, Decreased Breath Sounds Cardiovascular: Regular Rate, Rhythm, Systolic Murmur, Gallop/S4 Gastrointestinal: Normal Bowel Sounds, Non Tender, Soft Rectal: Deferred Back: No CVA Tenderness Extremity: Non Tender, No Calf Tenderness, Pedal Edema (2 plus) Neurologic/Psychiatric: Alert, Oriented x3, Motor Weakness (diffusely) Skin: Warm/Dry Comments Laboratory Tests 05/03/17 13:49: Magnesium Level 2.2, B-Type Natriuretic Peptide 150.9H 05/03/17 15:30: Urine Color YELLOW, Urine Clarity CLEAR, Urine pH 6.5, Urine Specific [place] 1.010L, Urine Protein 2+H, Urine Glucose (UA) NEGATIVE, Urine Ketones NEGATIVE, Urine Nitrite NEGATIVE, Urine Bilirubin NEGATIVE, Urine Urobilinogen NORMAL, Urine Leukocyte Esterase NEGATIVE, Urine RBC (Auto) 4+H, Urine RBC 25-50H, Urine WBC NONE, Urine Squamous Epithelial Cells 0-2, Urine Crystals NONE, Urine Bacteria NONE, Urine Casts NONE, Urine Mucus NEGATIVE, Urine Culture Indicated NO Assessment/Plan Assessment and Plan 1. Acute on Chronic Combined Systolic and Diastolic Congestive Heart Failure-- admit and give IV lasix 2. Exacerbation of COPD--admit for oxygen, IV solumedrol, SVNS 3. Acute on Chronic Anemia--hold aspirin and monitor H/H 4. Weakness due to recent pneumonia and sepsis with prolonged hospital stay-- resume PT/OT 5. Recent pneumonia--recheck CXR 6. Anxiety--resume home medications 7. GERD--IV pepcid Problems: RUTHIE PAZ DO May 03, 2017 8:01 pm
[2017-05-03] MEDS: chlordiazePOXIDE 25 MG (LIBRIUM) CAP NON-FORMULARY PO SCH (20:19)
[2017-05-03] MEDS: hydrOXYzine (ATARAX) 10 MG TAB PO SCH (20:19)
[2017-05-03] MEDS: LOSARTAN 50 MG (COZAAR) TAB PO SCH (20:19)
[2017-05-03] MEDS: MIRTAZAPINE 15 MG (REMERON) TAB PO SCH (20:19)
[2017-05-03] MEDS: ARTIFICAL TEARS 0.4 ML UNIT DOSE (REFRESH PLUS) OU SCH (20:19)
[2017-05-03] MEDS: FAMOTIDINE 20MG/2ML IV (PEPCID) IVP SCH (20:19)
[2017-05-03] MEDS: ROSUVASTATIN 5 MG (CRESTOR) TABLET PO SCH (20:19)
[2017-05-03 20:45] LABS: BASOPHILS % (AUTO) 0 % (0-10); EOSINOPHILS % (AUTO) 0 % (0-10); LYMPHOCYTES # (AUTO) 0.2 X 10^3 (1.0-4.0); LYMPHOCYTES % (AUTO) 5 % (12-44); MEAN CORPUSCULAR HEMOGLOBIN 30 PG (25-34); MEAN CORPUSCULAR HGB CONC 34 G/DL (32-36); MEAN CORPUSCULAR VOLUME 90 FL (80-99); MEAN PLATELET VOLUME 8.7 FL (7.4-10.4); MONOCYTES % (AUTO) 1 % (0-12); NEUTROPHILS # (AUTO) 3.8 X 10^3 (1.8-7.8); NEUTROPHILS % (AUTO) 93 % (42-75); PLATELET COUNT 322 10^3/uL (130-400); RED BLOOD COUNT 2.96 10^6/uL (4.35-5.85); RED CELL DISTRIBUTION WIDTH 11.3 % (10.0-14.5); WHITE BLOOD COUNT 4.1 10^3/uL (4.3-11.0)
[2017-05-03 21:06] LABS: ALBUMIN 3.2 GM/DL (3.2-4.5); BILIRUBIN,TOTAL 0.3 MG/DL (0.1-1.0); CALCIUM 8.8 MG/DL (8.5-10.1); CREATININE SERUM 1.46 MG/DL (0.60-1.30); ICTERUS 0.4 (-100-1.9); TOTAL PROTEIN 6.5 GM/DL (6.4-8.2)
[2017-05-03] MEDS: RT-ADVAIR HFA 115/21 MCG PER PUFF IH SCH (21:32)
--- OUTSIDE RECORDS SUMMARY | 2017-05-03 23:48 | XMS REPORT | Continuity of Care Document ---
Author Author [facility] Organization [facility] Address Unknown Phone Unavailable Allergies Active Description Code Type Severity Reaction Onset Reported/Identified Relationship to Patient Clinical Status Yes diphenhydramine HCl [id number] Drug Allergy Severe anaphalaxis 09/10/2014 Yes prednisone [id number] Drug Allergy Moderate Large doses cau 09/10/2014 Yes fentanyl [id number] Drug Allergy Mild N/A 09/10/2014 Yes meperidine [id number] Drug Allergy Mild NAUSEA 09/10/2014 Yes midazolam [id number] Drug Allergy Mild PT TAKE LIBRIUM 09/10/2014 Yes propofol [id number] Drug Allergy Mild N/A 09/10/2014 Yes Beta-Blockers (Beta-Adrenergic Bloc [id number] Drug Allergy Unknown N/A 09/10/2014 Yes erythromycin base [id number] Drug Allergy Unknown MAKES PATIENT N 09/10/2014 Yes Penicillins [id number] Drug Allergy Unknown HAS REC AZACTAM 09/10/2014 Yes risedronic acid [id number] Drug Allergy Unknown N/A 09/10/2014 Yes Cephalosporins [id number] Drug Allergy Unknown HAS RECEIVED CE 09/14/2014 [...] ELIZABETHNDER , MELODY S Ot 496 02/20/2015 ELIZABETHNDER , MELODY S Ot 496 03/01/2015 ARELY [...] KEE DAMON Ot 272.4 05/30/2015 KEE DAMON BATTING MACHINE OPERATOR INSULATION Ot V58.69 05/30/2015 ELIZABETHNDMELODY KEVIN DO S Ot 272.4 05/30/2015 ELIZABETHNDER JOVITA BROOKSLINE S Ot 593.9 05/30/2015 ELIZABETHNDER DOJOVITAMELODY S Ot 733.00 05/30/2015 ELIZABETHNDER DOJOVITAMELODY S Ot 780.79 07/09/2015 ELIZABETHND JOVITA BROOKSLINE S Ot 496 07/13/2015 ELIZABETHND DOJOVITAMELODY S Ot 401.9 HYPERTENSION NOS 07/13/2015 ELIZBAETHND DOJOVITAMELODY S Ot 496 CHR AIRWAY OBSTRUCT [...] FACC, ALI FACP CCDS Ot F41.9 09/24/2015 SUMIT MD FACC, ALI FACP CCDS Ot I25.10 [...] 790.99 12/03/2015 Ot V58.69 12/03/2015 SUMIT PAREDES MERGED WITH [facility] CCDS Ot 401.9 12/03/2015 SUMIT PAREDES MERGED WITH [facility] CCDS Ot 414.00 12/03/2015 MELODY MCGEE DO S Ot 401.9 12/03/2015 MELODY MCGEE DO S Ot 414.00 12/03/2015 BAIMA, KEE L BATTING MACHINE OPERATOR INSULATION Ot 401.9 12/03/2015 BAIMA, KEE L BATTING MACHINE OPERATOR INSULATION Ot V58.69 12/03/2015 JOVITA MCGEE DOLINE S Ot 733.00 12/03/2015 JOVITA MCGEE DOLINE S Ot V76.12 12/03/2015 BAIMA, KEE L BATTING MACHINE OPERATOR INSULATION Ot 272.4 12/03/2015 BAIMA, KEE L BATTING MACHINE OPERATOR INSULATION Ot 414.00 12/03/2015 BAIMA, KEE L BATTING MACHINE OPERATOR INSULATION Ot 425.4 12/03/2015 BAIMA, KEE L BATTING MACHINE OPERATOR INSULATION Ot 585.9 12/03/2015 BAIMA, KEE L BATTING MACHINE OPERATOR INSULATION Ot 272.4 12/03/2015 KEE DAMON L BATTING MACHINE OPERATOR INSULATION Ot 414.00 12/03/2015 KEE DAMON L BATTING MACHINE OPERATOR INSULATION Ot 425.4 12/03/2015 KEE DAMON L BATTING MACHINE OPERATOR INSULATION Ot 496 12/03/2015 KEE DAMON BATTING MACHINE OPERATOR INSULATION Ot 585.9 12/03/2015 ORENDER DO, MELODY S [...] 518.0 12/03/2015 Ot V46.2 12/03/2015 KEE DAMON BATTING MACHINE OPERATOR INSULATION Ot 272.4 12/03/2015 KEE DAMON L BATTING MACHINE OPERATOR INSULATION Ot V58.69 12/03/2015 ORENDER DO, MELODY S [...] Ot 401.9 12/05/2015 SUMIT [facility] Ot 414.00 12/05/2015 MELODY MCGEE DO Ot 401.9 12/05/2015 MELODY MCGEE DO S Ot 414.00 12/05/2015 BAIMA, KEE L BATTING MACHINE OPERATOR INSULATION Ot 401.9 12/05/2015 BAIMA, KEE L BATTING MACHINE OPERATOR INSULATION Ot V58.69 12/05/2015 [facility] Ot 733.00 12/05/2015 ORENDER DO, MELODY S Ot V76.12 12/05/2015 BAIMA, KEE L BATTING MACHINE OPERATOR INSULATION Ot 272.4 12/05/2015 BAIMA, KEE L BATTING MACHINE OPERATOR INSULATION Ot 414.00 12/05/2015 BAIMA, KEE L BATTING MACHINE OPERATOR INSULATION Ot 425.4 12/05/2015 BAIMA, KEE L BATTING MACHINE OPERATOR INSULATION Ot 585.9 12/05/2015 BAIMA, KEE L BATTING MACHINE OPERATOR INSULATION Ot 272.4 12/05/2015 BAIMA, KEE L BATTING MACHINE OPERATOR INSULATION Ot 414.00 12/05/2015 BAIMA, KEE L BATTING MACHINE OPERATOR INSULATION Ot 425.4 12/05/2015 BAIMA, KEE L BATTING MACHINE OPERATOR INSULATION Ot 496 12/05/2015 BAIMA, KEE L BATTING MACHINE OPERATOR INSULATION Ot 585.9 12/05/2015 [facility] S Ot 786.09 12/05/2015 [facility] S Ot 789.02 12/05/2015 [facility] S Ot V12.61 12/05/2015 [facility] S Ot 786.50 12/05/2015 [facility] S Ot 793.19 12/05/2015 [facility] MELODY S Ot 496 12/05/2015 JAKEGREGOR IBANEZ DO M Ot 496 12/05/2015 GREGOR JOSEPH DO M Ot 518.0 12/05/2015 JAKE DOGREGOR M Ot 786.09 12/05/2015 [facility] S Ot 496 12/05/2015 Ot 428.0 12/05/2015 Ot 496 12/05/2015 Ot 518.0 12/05/2015 Ot V46.2 12/05/2015 BAIMA, KEE L BATTING MACHINE OPERATOR INSULATION Ot 272.4 12/05/2015 BAIMA, KEE L BATTING MACHINE OPERATOR INSULATION Ot V58.69 12/05/2015 [facility] S Ot 272.4 12/05/2015 [facility] S Ot 593.9 12/05/2015 MELODY MCGEE DO Ot 733.00 12/05/2015 MELODY MCGEE DO Ot 780.79 12/05/2015 SUMIT PAREDES MERGED WITH [facility], ALI FACP CCDS Ot E78.5 12/05/2015 SUMIT PAREDES MERGED WITH [facility], ALI FACP CCDS Ot F41.9 12/05/2015 SUMIT PAREDES MERGED WITH [facility], ALI FACP CCDS Ot I25.10 12/05/2015 SUMIT MD MERGED WITH [facility], ALI FACP CCDS Ot I42.9 12/05/2015 SUMIT MD MERGED WITH [facility], ALI FACP CCDS Ot I50.9 12/05/2015 SUMIT MD MERGED WITH [facility], ALI FACP CCDS Ot J44.9 12/05/2015 SUMIT MD MERGED WITH [facility], ALI FACP CCDS Ot M19.90 12/05/2015 SUMIT PAREDES MERGED WITH [facility], ALI FACP CCDS Ot N18.9 12/05/2015 SUMIT MD MERGED WITH [facility], ALI FACP CCDS Ot R91.1 12/05/2015 KEE DAMON BATTING MACHINE OPERATOR INSULATION Ot E78.5 12/25/2015 KEE DAMON BATTING MACHINE OPERATOR INSULATION Ot E78.5 01/22/2016 MELODY MCGEE DO S Ot M81.0 01/28/2016 MARTINA MONAHAN STERILE PROCESSING TECH Ot J44.9 01/28/2016 MARTINA MONAHAN STERILE PROCESSING TECH Ot R91.1 01/28/2016 MARTINA MONAHAN STERILE PROCESSING TECH Ot Z72.0 02/05/2016 MARTINA MONAHAN STERILE PROCESSING TECH Ot J44.9 02/05/2016 MARTINA MONAHAN STERILE PROCESSING TECH Ot R91.1 02/05/2016 MARTINA MONAHAN STERILE PROCESSING TECH Ot Z72.0 02/28/2016 MARY PEREZ APRN Ot S81.811A LACERATION W/O FOREIGN BODY, RIGHT LOWER 02/28/2016 MARY PEREZ APRN Ot S81.812A LACERATION WITHOUT FOREIGN BODY, LEFT LO 02/28/2016 MARY PEREZ APRN Ot X58.XXXA EXPOSURE TO OTHER SPECIFIED FACTORS, INI 02/28/2016 MARY PEREZ APRN Ot Y99.8 OTHER EXTERNAL CAUSE STATUS 03/11/2016 MARY PEREZ STERILE PROCESSING TECH Ot S81.811A LACERATION W/O FOREIGN BODY, RIGHT LOWER 03/11/2016 MARY PEREZ STERILE PROCESSING TECH Ot S81.812A LACERATION WITHOUT FOREIGN BODY, LEFT LO 03/11/2016 MARY PEREZ STERILE PROCESSING TECH Ot X58.XXXA EXPOSURE TO OTHER SPECIFIED FACTORS, INI 03/11/2016 MARY PEREZ STERILE PROCESSING TECH Ot Y99.8 OTHER EXTERNAL CAUSE STATUS 03/24/2016 MARY PEREZ STERILE PROCESSING TECH Ot S81.811A LACERATION W/O FOREIGN BODY, RIGHT LOWER 03/24/2016 MARY PEREZ R STERILE PROCESSING TECH Ot S81.812A LACERATION WITHOUT FOREIGN BODY, LEFT LO 03/24/2016 MARY PEREZ STERILE PROCESSING TECH Ot X58.XXXA EXPOSURE TO OTHER SPECIFIED FACTORS, INI 03/24/2016 MARY PEREZ STERILE PROCESSING TECH Ot Y99.8 OTHER EXTERNAL CAUSE STATUS 04/09/2016 GREGOR JOSEPH DO Ot I10 ESSENTIAL (PRIMARY) HYPERTENSION 04/11/2016 RGEGOR JOSEPH DO Ot F41.9 ANXIETY DISORDER, UNSPECIFIED 04/11/2016 GREGOR JOSEPH DO Ot J43.8 OTHER EMPHYSEMA 04/11/2016 GREGOR JOSEPH DO Ot R91.1 SOLITARY PULMONARY NODULE 05/02/2016 GREGOR JOSEPH DO Ot F41.9 ANXIETY DISORDER, UNSPECIFIED 05/02/2016 GREGOR JOSEPH DO Ot J43.8 OTHER EMPHYSEMA 05/02/2016 GREGOR JOSEPH DO Ot R91.1 SOLITARY PULMONARY NODULE 05/12/2016 KEE DAMON BATTING MACHINE OPERATOR INSULATION Ot I25.10 ATHSCL HEART DISEASE OF [place] CORONARY 05/13/2016 KEE DAMON BATTING MACHINE OPERATOR INSULATION Ot E78.5 HYPERLIPIDEMIA, UNSPECIFIED 05/13/2016 KEE DAMON L BATTING MACHINE OPERATOR INSULATION Ot I25.10 ATHSCL HEART DISEASE OF [place] CORONARY 05/14/2016 GREGOR JOSEPH DO Ot F41.9 ANXIETY DISORDER, UNSPECIFIED 05/14/2016 GREGOR JOSEPH DO Ot J43.8 OTHER EMPHYSEMA 05/14/2016 GREGOR JOSEPH DO Ot R91.1 SOLITARY PULMONARY NODULE 06/18/2016 KEE DAMON BATTING MACHINE OPERATOR INSULATION Ot E78.5 HYPERLIPIDEMIA, UNSPECIFIED 06/18/2016 KEE DAMON Ot I25.10 ATHSCL HEART DISEASE OF [place] CORONARY 09/25/2016 Ot 272.4 HYPERLIPIDEMIA NEC/NOS 09/25/2016 Ot 414.01 CORONARY ATHEROSCLEROSIS OF [place] CORON 09/25/2016 Ot 425.4 PRIM CARDIOMYOPATHY NEC 09/25/2016 Ot 428.0 CONGESTIVE HEART FAILURE NOS 09/25/2016 Ot V58.69 OTH MED,LT,CURRENT USE 09/25/2016 Ot 733.00 OSTEOPOROSIS NOS 09/25/2016 Ot V76.12 OTH SCREEN MAMMO-MALIGN NEOPLASM OF [place] 09/25/2016 Ot 268.9 VITAMIN D DEFICIENCY NOS 09/25/2016 Ot 285.9 ANEMIA NOS 09/25/2016 Ot 414.01 CORONARY ATHEROSCLEROSIS OF [place] CORON 09/25/2016 Ot 518.89 OTHER DISEASES OF [...] TYPE VESSEL, NATIV 09/25/2016 BAIKEE LEI L BATTING MACHINE OPERATOR INSULATION Ot 401.9 HYPERTENSION NOS 09/25/2016 MARISOL, KEE L BATTING MACHINE OPERATOR INSULATION Ot V58.69 OTH MED,LT,CURRENT USE 09/25/2016 JOVITA MCGEE DOLINE S Ot 733.00 OSTEOPOROSIS NOS 09/25/2016 HARDIK MCGEE DOQUELINE S Ot V76.12 OTH SCREEN MAMMO-MALIGN NEOPLASM OF [place] 09/25/2016 BAIMA, KEE L BATTING MACHINE OPERATOR INSULATION Ot 272.4 HYPERLIPIDEMIA NEC/NOS 09/25/2016 BAIMA, KEE L BATTING MACHINE OPERATOR INSULATION Ot 414.00 CORON ATHEROSCLER NOS TYPE VESSEL, NATIV 09/25/2016 BAIMA, KEE L BATTING MACHINE OPERATOR INSULATION Ot 425.4 PRIM CARDIOMYOPATHY NEC 09/25/2016 BAIMA, KEE L BATTING MACHINE OPERATOR INSULATION Ot 585.9 CHRONIC KIDNEY DISEASE, UNSPECIFIED 09/25/2016 BAIMA, KEE L BATTING MACHINE OPERATOR INSULATION Ot 272.4 HYPERLIPIDEMIA NEC/NOS 09/25/2016 BAIMA, KEE L BATTING MACHINE OPERATOR INSULATION Ot 414.00 CORON ATHEROSCLER NOS TYPE VESSEL, NATIV 09/25/2016 BAIMA, KEE L BATTING MACHINE OPERATOR INSULATION Ot 425.4 PRIM CARDIOMYOPATHY NEC 09/25/2016 BAIDO, KEE L BATTING MACHINE OPERATOR INSULATION Ot 496 CHR AIRWAY OBSTRUCT NEC 09/25/2016 BAIDO, KEE L BATTING MACHINE OPERATOR INSULATION Ot 585.9 CHRONIC KIDNEY DISEASE, UNSPECIFIED 09/25/2016 [...] V46.2 SUPPLEMENTAL OXYGEN 09/25/2016 BAIMA, KEE L BATTING MACHINE OPERATOR INSULATION Ot 272.4 HYPERLIPIDEMIA NEC/NOS 09/25/2016 BAIMA, KEE L BATTING MACHINE OPERATOR INSULATION Ot V58.69 OTH MED,LT,CURRENT USE 09/25/2016 ELIZABETHNDHARDIK KEVIN DOQUELINE S Ot 272.4 HYPERLIPIDEMIA NEC/NOS 09/25/2016 ELIZABETHNDDORITA BOROKS MELODY S Ot 593.9 RENAL URETERAL DIS NOS 09/25/2016 ELIZABETHNDDORITA BROOKS MELODY S Ot 733.00 OSTEOPOROSIS NOS 09/25/2016 ELIZABETHRUBENSDORITA BROOKS MELODY S Ot 780.79 OTH MALAISE FATIGUE 09/25/2016 SUMIT PAREDES FACC, CASSIE FACP CCDS Ot E78.5 HYPERLIPIDEMIA, UNSPECIFIED 09/25/2016 SUMIT PAREDES FACC, ALI FACP CCDS Ot F41.9 ANXIETY DISORDER, UNSPECIFIED 09/25/2016 SUMIT PAREDES FACC, ALI FACP CCDS Ot I25.10 ATHSCL HEART DISEASE OF [place] CORONARY 09/25/2016 SUMIT PAREDES FACC, ALI FACP [...] PULMONARY DISEASE , U 09/25/2016 MARTINA MONAHAN STERILE PROCESSING TECH Ot R91.1 SOLITARY PULMONARY NODULE 09/25/2016 MARTINA MONAHAN STERILE PROCESSING TECH Ot Z72.0 TOBACCO USE 09/25/2016 KEE DAMON BATTING MACHINE OPERATOR INSULATION Ot E78.5 HYPERLIPIDEMIA, UNSPECIFIED 09/25/2016 MELODY MCGEE DO Ot M81.0 AGE-RELATED OSTEOPOROSIS W/O CURRENT PAT 09/25/2016 GREGOR JOSEPH DO Ot F41.9 ANXIETY DISORDER, UNSPECIFIED 09/25/2016 GREGOR JOSEPH DO Ot J43.8 OTHER EMPHYSEMA 09/25/2016 GREGOR JOSEPH DO Ot R91.1 SOLITARY PULMONARY NODULE 09/25/2016 KEE DAMON BATTING MACHINE OPERATOR INSULATION Ot E78.5 HYPERLIPIDEMIA, UNSPECIFIED 09/25/2016 KEE DAMON BATTING MACHINE OPERATOR INSULATION Ot I25.10 ATHSCL HEART DISEASE OF [place] CORONARY 09/28/2016 SUMIT PAREDES FACC, ALI FACP CCDS Ot E78.4 OTHER HYPERLIPIDEMIA 09/28/2016 SUMIT PAREDES FACC, ALI FACP CCDS Ot I25.10 ATHSCL HEART DISEASE OF [place] CORONARY 09/28/2016 SUMIT PAREDES FACC, ALI FACP CCDS Ot I47.1 SUPRAVENTRICULAR TACHYCARDIA 09/28/2016 SUMIT PAREDES FACC, ALI FACP CCDS Ot 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 09/28/2016 SUMIT DUNLAPC, ALI FACP CCDS Ot J43.8 OTHER EMPHYSEMA 09/28/2016 SUMIT PAREDES FACC, ALI FACP CCDS Ot N18.2 CHRONIC KIDNEY DISEASE, STAGE 2 ( MILD) 10/13/2016 MARTINA MONAHAN STERILE PROCESSING TECH Ot J44.1 CHRONIC OBSTRUCTIVE PULMONARY DISEASE W 10/13/2016 MARTINA MONAHAN STERILE PROCESSING TECH Ot J98.11 ATELECTASIS 10/13/2016 MARTINA MONAHAN STERILE PROCESSING TECH Ot R06.00 DYSPNEA, UNSPECIFIED 10/13/2016 MARTINA MONAHAN STERILE PROCESSING TECH Ot R91.1 SOLITARY PULMONARY NODULE 10/15/2016 MARTINA MONAHAN STERILE PROCESSING TECH Ot J43.9 EMPHYSEMA, UNSPECIFIED 10/15/2016 MARTINA MONAHAN STERILE PROCESSING TECH Ot R06.00 DYSPNEA, UNSPECIFIED 10/15/2016 HERO, MARTINA E STERILE PROCESSING TECH Ot R09.02 HYPOXEMIA 10/15/2016 MARTINA MONAHAN STERILE PROCESSING TECH Ot J43.9 EMPHYSEMA, UNSPECIFIED 10/15/2016 MARTINA MONAHAN STERILE PROCESSING TECH Ot R06.00 DYSPNEA, UNSPECIFIED 10/15/2016 MARTINA MONAHAN STERILE PROCESSING TECH Ot R09.02 HYPOXEMIA 10/21/2016 SUMIT PAREDES FAC, ALI FACP CCDS Ot E78.4 OTHER HYPERLIPIDEMIA 10/21/2016 SUMIT PAREDES FAC, ALI FACP CCDS Ot I25.10 ATHSCL HEART DISEASE OF [place] CORONARY 10/21/2016 SUMIT PAREDES FAC, ALI FACP CCDS Ot I47.1 SUPRAVENTRICULAR TACHYCARDIA 10/21/2016 SUMIT PAREDES FAC, ALI FACP CCDS Ot 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 10/21/2016 SUMIT PAREDES FAC, ALI FACP CCDS Ot J43.8 OTHER EMPHYSEMA 10/21/2016 SUMIT PAREDES MERGED WITH [facility], ALI FACP CCDS Ot N18.2 CHRONIC KIDNEY DISEASE, STAGE 2 ( MILD) 11/05/2016 MARTINA MONAHAN STERILE PROCESSING TECH Ot J44.1 CHRONIC OBSTRUCTIVE PULMONARY DISEASE W 11/05/2016 MARTINA MONAHAN STERILE PROCESSING TECH Ot J98.11 ATELECTASIS 11/05/2016 MARTINA MONAHAN STERILE PROCESSING TECH Ot R06.00 DYSPNEA, UNSPECIFIED 11/05/2016 MARTINA MONAHAN STERILE PROCESSING TECH Ot R91.1 SOLITARY PULMONARY NODULE 11/05/2016 MARTINA MONAHAN STERILE PROCESSING TECH Ot J43.9 EMPHYSEMA, UNSPECIFIED 11/05/2016 MARTINA MONAHAN STERILE PROCESSING TECH Ot R06.00 DYSPNEA, UNSPECIFIED 11/05/2016 MARTINA MONAHAN STERILE PROCESSING TECH Ot R09.02 HYPOXEMIA 11/18/2016 MARTINA MONAHAN STERILE PROCESSING TECH Ot J44.1 CHRONIC OBSTRUCTIVE PULMONARY DISEASE W 11/18/2016 MARTINA MONAHAN STERILE PROCESSING TECH Ot J98.11 ATELECTASIS 11/18/2016 MARTINA MONAHAN STERILE PROCESSING TECH Ot R06.00 DYSPNEA, UNSPECIFIED 11/18/2016 MARTINA MONAHAN STERILE PROCESSING TECH Ot R91.1 SOLITARY PULMONARY NODULE 11/18/2016 MARTINA MONAHAN STERILE PROCESSING TECH Ot J43.9 EMPHYSEMA, UNSPECIFIED 11/18/2016 MARTINA MONAHAN [...] S Ot I25.10 ATHSCL HEART DISEASE OF [place] CORONARY 04/13/2017 JOVITA MCGEE DOLINE S Ot [...] S Ot I25.10 ATHSCL HEART DISEASE OF [place] CORONARY 04/14/2017 JOVITA MCGEE DOLINE S Ot [...] S Ot I25.10 ATHSCL HEART DISEASE OF [place] CORONARY 04/15/2017 HARDIK MCGEE DOQUELINE S Ot [...] S Ot I25.10 ATHSCL HEART DISEASE OF [place] CORONARY 04/15/2017 ELIZABETHNDER DO, MELODY S Ot I25.5 ISCHEMIC CARDIOMYOPATHY 04/15/2017 ELIZABETHNDER DO MELODY S Ot J30.2 OTHER SEASONAL ALLERGIC RHINITIS 04/15/2017 ELIZABETHNDDORITA BROOKS MELODY S Ot J44.9 CHRONIC OBSTRUCTIVE PULMONARY DISEASE , U 04/15/2017 ELIZABETHNDER DO MELODY S Ot K21.9 GASTRO-ESOPHAGEAL REFLUX DISEASE WITHOUT 04/15/2017 ELIZABETHNDER DO MELODY S Ot K44.9 DIAPHRAGMATIC HERNIA WITHOUT OBSTRUCTION 04/15/2017 ELIZABETHNDER DO MELODY S Ot K57.90 DVRTCLOS OF INTEST, PART UNSP, W/O PERF 04/15/2017 ORENDER DO, MELODY S Ot M19.91 PRIMARY OSTEOARTHRITIS, UNSPECIFIED SITE 04/15/2017 ELIZABETHNDER DO MELODY S Ot N39.0 URINARY TRACT INFECTION, SITE NOT SPECIF 04/15/2017 ORENDER DO MELODY S Ot R53.83 OTHER FATIGUE 04/15/2017 ELIZABETHNDER DO, MELODY S Ot Z87.891 PERSONAL HISTORY OF NICOTINE DEPENDENCE 04/15/2017 MELODY MCGEE DO S Ot Z99.81 DEPENDENCE ON SUPPLEMENTAL OXYGEN 04/19/2017 JAKE BROOKS GREGOR Klein Ot J43.9 EMPHYSEMA, UNSPECIFIED 04/19/2017 JAKE GREGOR BROOKS Ot R09.02 HYPOXEMIA 04/19/2017 JAKE GREGOR BROOKS Ot R91.1 SOLITARY PULMONARY NODULE 04/21/2017 JAKE BROOKS GREGOR Klein Ot J43.9 EMPHYSEMA, UNSPECIFIED 04/21/2017 JAKE GREGOR BROOKS Ot R09.02 HYPOXEMIA 04/21/2017 JAKE GREGOR BROOKS Ot R91.1 SOLITARY PULMONARY NODULE 04/26/2017 MELODY MCGEE DO Ot A41.81 SEPSIS DUE TO ENTEROCOCCUS 04/26/2017 MELODY MCGEE DO S Ot B96.89 OTH BACTERIAL AGENTS THE CAUSE OF DIS 04/26/2017 MELODY MCGEE DO S Ot D64.9 ANEMIA, UNSPECIFIED 04/26/2017 MELODY MCGEE DO S Ot E83.42 HYPOMAGNESEMIA 04/26/2017 JOVITA MCGEE DOLINE S Ot F41.9 ANXIETY DISORDER, UNSPECIFIED 04/26/2017 JOVITA MCGEE DOLINE S Ot F43.10 POST-TRAUMATIC STRESS DISORDER, UNSPECIF 04/26/2017 JOVITA MCGEE DOLINE S Ot I10 ESSENTIAL (PRIMARY) HYPERTENSION 04/26/2017 JOVITA MCGEE DOLINE S Ot I25.10 ATHSCL HEART DISEASE OF [place] CORONARY 04/26/2017 MELODY MCGEE DO S Ot I25.5 ISCHEMIC CARDIOMYOPATHY 04/26/2017 JOVITA MCGEE DOLINE S Ot J18.9 PNEUMONIA, UNSPECIFIED ORGANISM 04/26/2017 MELODY MCGEE DO S Ot J30.2 OTHER SEASONAL ALLERGIC RHINITIS 04/26/2017 MELODY MCGEE DO S Ot J44.0 CHRONIC OBSTRUCTIVE PULMON DISEASE W ACU 04/26/2017 JOVITA MCGEE DOLINE S Ot K21.9 GASTRO-ESOPHAGEAL REFLUX DISEASE WITHOUT 04/26/2017 JOVITA MCGEE DOLINE S Ot K44.9 DIAPHRAGMATIC HERNIA WITHOUT OBSTRUCTION 04/26/2017 MELODY MCGEE DO S Ot K57.90 DVRTCLOS OF INTEST, PART UNSP, W/O PERF 04/26/2017 MELODY MCGEE DO Ot M19.91 PRIMARY OSTEOARTHRITIS, UNSPECIFIED SITE 04/26/2017 MELODY MCGEE DO Ot N39.0 URINARY TRACT INFECTION, SITE NOT SPECIF 04/26/2017 MELODY MCGEE DO Ot R53.83 OTHER FATIGUE 04/26/2017 MELODY MCGEE DO Ot R60.0 LOCALIZED EDEMA 04/26/2017 MELODY MCGEE DO Ot Z87.891 PERSONAL HISTORY OF NICOTINE DEPENDENCE 04/26/2017 MELODY MCGEE DO Ot Z99.81 DEPENDENCE ON SUPPLEMENTAL OXYGEN Procedures Code Description Performed By Performed On [...] culture - 04/11/17 17:39 Bacterial urine culture [id number] NRG COLONY COUNT <10,000 NRG FREE TEXT [...] Isolated NRG Bacterial blood culture SEE [facility] Bacterial susceptibility panel - 04/11/17 [...] plasma calcium measurement (mass/volume) 8.6 mg/dL 8.5-10.1 Complete blood count (CBC) with automated white blood cell (WBC) differential - 04/29/17 14:50 Blood leukocytes automated count (number/volume) 5.3 10*3/ uL 4.3-11.0 Blood erythrocytes automated count (number/volume) 2.78 10*6 /uL 4.35-5.85 Venous blood hemoglobin measurement (mass/volume) 8.6 g/dL 11.5-16.0 Blood hematocrit (volume fraction) 26 % 35-52 Automated erythrocyte mean corpuscular volume 93 [foz_us] 80-99 Automated erythrocyte mean corpuscular hemoglobin (mass per erythrocyte) 31 pg 25-34 Automated erythrocyte mean corpuscular hemoglobin concentration measurement ( mass/volume) 33 g/dL 32-36 Automated erythrocyte distribution width ratio 11.4 % 10.0-14.5 Automated blood platelet count (count/volume) 379 10*3/uL 130-400 Automated blood platelet mean volume measurement 8.9 [foz_us ] 7.4-10.4 Automated blood neutrophils/100 leukocytes 51 % 42-75 Automated blood lymphocytes/100 leukocytes 25 % 12-44 Blood monocytes/100 leukocytes 20 % 0-12 Automated blood eosinophils/100 leukocytes 4 % 0-10 Automated blood basophils/100 leukocytes 1 % 0-10 Blood neutrophils automated count (number/volume) 2.7 10*3 1.8-7.8 Blood lymphocytes automated count (number/volume) 1.3 10*3 1.0-4.0 Blood monocytes automated count (number/volume) 1.0 10*3 0.0-1.0 Automated eosinophil count 0.2 10*3/uL 0.0-0.3 Automated blood basophil count (count/volume) 0.0 10*3/uL 0.0-0.1 Blood manual differential performed detection - 04/29/17 14:50 Blood monocytes/100 leukocytes 3 % NRG Manual blood segmented neutrophils/100 leukocytes 54 % NRG Blood band neutrophils/100 leukocytes 0 % NRG Manual blood lymphocytes/100 leukocytes 42 % NRG Manual eosinophils/100 leukocytes in nose 1 % NRG Manual blood basophils/100 leukocytes 0 % NRG Blood hypochromia detection by light microscopy SLIGHT NRG Blood spherocytes detection by light microscopy SLIGHT NRG Encounters ACCT No. Visit Date/Time Discharge Status Pt. Type Provider Facility Loc./Unit Complaint [id number] 04/15/2017 08:48:00 2016 12:15:00 DIS Outpatient MELODY MCGEE DO [facility] 4TH SWB-PNEUMONIA [id number] 04/11/2017 19:10:00 2016 08:31:00 DIS Inpatient MELODY MCGEE DO S Via [address] SEPSIS,UTI,COPD [id number] 01/08/2017 12:33:00 2016 11:15:00 DIS Inpatient MELODY MCGEE DO S Via [facility] 4TH SWB LEFT UPPER LOBE PNEUMONIA [id number] 01/04/2017 11:15:00 2016 12:33:00 DIS Inpatient MELODY MCGEE DO S Via [facility] 4TH LEFT UPPER LOBE PNA [id number] 03/24/2016 13:55:00 2015 15:00:00 DIS Outpatient MARY PEREZ APRN Via [facility] WOUNDCARE [id number] 08/29/2015 07:34:00 2014 23:59:59 CLS Outpatient SUMIT PAREDES FACC, CASSIE ROCHE CCDS Via [facility] CARD CARDIOMYOPATHY, CAD, ANXIETY, CHF, CHRONIC RENAL I [id number] 07/11/2015 17:25:00 2014 15:45:00 DIS Inpatient MELODY MCGEE DO S Via [facility] SURGICAL ACUTE ABD PAIN [id number] 05/09/2015 07:06:00 2014 23:59:59 CLS Outpatient MELODY MCGEE DO S Via [facility] LAB HLP,FATIGUE,OSTEOPORISIS, RENAL INSUFF [id number] 05/09/2015 07:02:00 2014 23:59:59 CLS Outpatient KEE DAMON Via [facility] LAB DIGOXIN THERAPY [id number] 03/06/2015 08:34:00 2014 23:59:59 CLS Outpatient GREGOR JOSEPH DO Via [facility] RAD COPD,DYSPNEA [id number] 03/01/2015 13:01:00 2014 23:59:59 CLS Outpatient JOVITA MCGEE DOLINE S Via [facility] RT COPD [id number] 02/13/2015 11:33:00 2014 23:59:59 CLS Outpatient HARDIK MCGEE DOQUELINE S Via [facility] RT COPD [id number] 10/08/2014 13:08:00 2013 23:59:59 CLS Outpatient HARDIK MCGEE DOQUELINE S Via [facility] RAD LEFT LOWER LOBE CONSOLIDATION W/PAIN [id number] 10/03/2014 11:07:00 2013 23:59:59 CLS Outpatient ARELY BROOKS MELODY S Via [facility] RAD DYSPNEA,PNEUMONIA,LUQ PAIN [id number] 09/14/2014 10:51:00 2013 16:45:00 DIS Inpatient HARDIK MCGEE DOQUELINE S Via [facility] 4TH SWB-EXERCERBATION OF COPD [id number] 09/10/2014 16:44:00 2013 10:35:00 DIS Inpatient HARDIK MCGEE DOQUELINE S Via [facility] 4TH EXERCERBATION OF COPD [id number] 08/23/2014 12:18:00 2013 15:05:00 DIS Emergency TARIQ PAREDES, JOE Marin [facility] ER NOSEBLEED [id number] 03/16/2014 07:04:00 2013 23:59:59 CLS Outpatient KEE DAMON Via [facility] LAB CAD CARDIOMYOPATHY HYPERLIPIDEMIA CHRONIC RENAL IN [id number] 09/11/2013 06:59:00 2012 23:59:59 CLS Outpatient KEE DAMON [facility] LAB CAD,HYPERLIPIDEMIA, [id number] 08/25/2013 10:26:00 2012 23:59:59 CLS Outpatient MELODY MCGEE DO Via [facility] RAD SCREENING,OSTEOPOROSIS [id number] 04/21/2013 09:17:00 2012 11:39:00 DIS Emergency TARIQ PAREDES, JOE Marin [facility] ER CP [id number] 04/20/2013 07:59:00 2012 23:59:59 CLS Outpatient KEE DAMON [facility] LAB HYPERTENSION,DIGOXIN [place] [id number] 03/15/2013 10:50:00 2012 23:59:59 CLS Outpatient SUMIT PAREDES FACC, CASSIE ROCHE CCDS [facility] CARD HTN [id number] 03/15/2013 07:09:00 2012 23:59:59 CLS Outpatient MELODY MCGEE DO [facility] LAB CAD,HTN [id number] 04/29/2017 15:36:00 ACT Outpatient MELODY MCGEE DO Via [facility] HH PNEUMONIA, UTI [id number] 04/09/2017 11:15:00 PEN Preadmit GREGOR JOSEPH DO Via [facility] RAD COPD,ATELECTASIS [id number] 03/18/2017 11:01:00 ACT Outpatient GREGOR JOSEPH DO [facility] RAD HYPOXIA [id number] 12/18/2016 12:09:00 ACT Outpatient MELODY MCGEE DO [facility] [facility] CEPHALGIA [id number] 10/14/2016 09:50:00 ACT Outpatient MARTINA MONAHAN APRN [facility] RAD EMPHYSEMA LUNG,HYPOXIA,DYSPNEA [id number] 10/12/2016 07:27:00 ACT Outpatient MARTINA MONAHAN APRN [facility] RAD COPD,DYSPNEA,LUNG NODULE,UPPER RESP INFECTION [id number] 09/25/2016 07:09:00 ACT Outpatient SUMIT PAREDES FACCCASSIE FACP CCDS [facility] LAB CAD,CHF,COPD,CHRONIC RENAL INSUFFICIENCY,HLP [id number] 05/12/2016 06:52:00 ACT Outpatient KEE DAMON [facility] LAB CAD,HYPERLIPIDEMIA, [id number] 04/09/2016 13:00:00 ACT Outpatient GREGOR JOSEPH DO [facility] RAD COPD,LUNG NODULE [id number] 01/08/2016 08:33:00 ACT Outpatient MARTINA MONAHAN APRN [facility] RAD COPD,LUNG NODULE [id number] 01/02/2016 11:01:00 ACT Outpatient MELODY MCGEE DO [facility] RAD OSTEOPOROSIS [id number] 12/03/2015 07:06:00 ACT Outpatient KEE DAMON [facility] LAB HLP [id number] 12/03/2015 07:06:00 Document Registration [id number] 07/10/2015 09:27:00 Document Registration [id number] 12/12/2012 07:39:00 Document Registration [id number] 11/14/2012 07:28:00 Document Registration [id number] 11/02/2012 07:33:00 Document Registration [id number] 10/24/2012 07:25:00 Document Registration [id number] 10/20/2012 07:27:00 Document Registration [id number] 07/06/2012 15:00:00 Document Registration [id number] 06/25/2012 12:39:00 Document Registration [id number] 06/20/2012 16:08:00 Document Registration [id number] 04/19/2012 07:11:00 Document Registration [id number] 10/27/2011 08:05:00 Document Registration [id number] 07/30/2011 09:38:00 Document Registration [id number] 06/04/2011 07:16:00 Document Registration [id number] 05/29/2011 06:29:00 Document Registration [id number] 03/26/2011 13:29:00 Document Registration [id number] 03/23/2011 10:06:00 Document Registration [id number] 12/05/2010 07:38:00 Document Registration [id number] 07/21/2010 08:53:00 Document Registration
[2017-05-04] MEDS: RT-ALBUTEROL SULF 2.5 MG/3 ML PRE-MIX VIAL INH SCH ×6 (01:56→22:01)
[2017-05-04 04:56] LABS: MEAN PLATELET VOLUME 8.8 FL (7.4-10.4); RED BLOOD COUNT 2.83 10^6/uL (4.35-5.85); RED CELL DISTRIBUTION WIDTH 11.2 % (10.0-14.5); WHITE BLOOD COUNT 2.8 10^3/uL (4.3-11.0)
[2017-05-04] MEDS: methylPREDNISolone 40 MG/ML (Solu-MEDROL) VIAL IV SCH ×3 (05:19→21:24)
[2017-05-04 05:23] LABS: ALBUMIN 3.2 GM/DL (3.2-4.5); BILIRUBIN,TOTAL 0.3 MG/DL (0.1-1.0); CALCIUM 8.6 MG/DL (8.5-10.1); CREATININE SERUM 1.76 MG/DL (0.60-1.30); ICTERUS 0.4 (-100-1.9); TOTAL PROTEIN 5.9 GM/DL (6.4-8.2)
[2017-05-04 05:25] LABS: POTASSIUM 5.3 MMOL/L (3.6-5.0)
[2017-05-04 06:00] VITALS: BP 134/59
[2017-05-04] MEDS: RT-ADVAIR HFA 115/21 MCG PER PUFF IH SCH ×2 (07:32→18:26)
[2017-05-04] MEDS: UMECLIDINIUM BROMIDE (INCRUSE ELLIPTA) 7'S IH SCH (07:33)
[2017-05-04] MEDS: ACETAMINOPHEN 325 MG TABLET/CAPLET (TYLENOL) PO PRN (07:41)
--- NOTE | 2017-05-04 08:34 | Progress Note (SOAP) ---
Subjective Date Seen by Provider: May 04, 2017 Time Seen by Provider: 08:28 Subjective/Events-last exam CODP exacerbation, acute on chronic combined CHF, Acute on chronic anemia, weakness r/t recent illness. Complaints of weakness, always calls nurse to get up; no appetite, does not remember last time had an appetite; lt side back pain with frequent repositioning. Objective Exam Vital Signs Date Time Temp Pulse Resp B/P (MAP) Pulse Ox O2 Delivery O2 Flow Rate FiO2 05/04/17 07:32 99 Nasal Cannula 3.00 05/04/17 06:00 97.8 87 20 134/59 98 Nasal Cannula 2.00 05/04/17 01:57 97 Nasal Cannula 3.00 05/03/17 21:39 99 Nasal Cannula 3.00 05/03/17 21:32 96 Nasal Cannula 3.00 05/03/17 20:20 Nasal Cannula 3.00 05/03/17 18:47 98.4 98 20 141/62 98 Nasal Cannula 2.00 05/03/17 18:04 82 Nasal Cannula 2.00 05/03/17 13:00 Nasal Cannula 3.00 05/03/17 12:57 98 Nasal Cannula 3.00 05/03/17 12:48 99.6 93 20 196/92 98 Nasal Cannula 2.00 I & O 05/04/17 07:00 Intake Total 550 ml Output Total 1100 ml Balance -550 ml Capillary Refill : General Appearance: Mild Distress Neck: Full Range of Motion, Non Tender Respiratory: Chest Non Tender, Decreased Breath Sounds (RLL), Wheezing ( expiratory) Cardiovascular: Systolic Murmur (pre-existing unchanged), Tachycardia Gastrointestinal: normal bowel sounds, non tender, soft Neurologic/Psychiatric: Alert, Oriented x3 Skin: Pallor Results Lab Laboratory Tests 05/03/17 13:49: Magnesium Level 2.2, B-Type Natriuretic Peptide 150.9H 05/03/17 15:30: Urine Color YELLOW, Urine Clarity CLEAR, Urine pH 6.5, Urine Specific [place] 1.010L, Urine Protein 2+H, Urine Glucose (UA) NEGATIVE, Urine Ketones NEGATIVE, Urine Nitrite NEGATIVE, Urine Bilirubin NEGATIVE, Urine Urobilinogen NORMAL, Urine Leukocyte Esterase NEGATIVE, Urine RBC (Auto) 4+H, Urine RBC 25-50H, Urine WBC NONE, Urine Squamous Epithelial Cells 0-2, Urine Crystals NONE, Urine Bacteria NONE, Urine Casts NONE, Urine Mucus NEGATIVE, Urine Culture Indicated NO 05/03/17 20:20: White Blood Count 4.1L, Red Blood Count 2.96L, Hemoglobin 9.0L, Hematocrit 27L, Mean Corpuscular Volume 90, Mean Corpuscular Hemoglobin 30, Mean Corpuscular Hemoglobin Concent 34, Red Cell Distribution Width 11.3, Platelet Count 322, Mean Platelet Volume 8.7, Neutrophils (%) (Auto) 93H, Lymphocytes (%) (Auto) 5L , Monocytes (%) (Auto) 1, Eosinophils (%) (Auto) 0, Basophils (%) (Auto) 0, Neutrophils # (Auto) 3.8, Lymphocytes # (Auto) 0.2L, Monocytes # (Auto) 0.0, Eosinophils # (Auto) 0.0, Basophils # (Auto) 0.0, Sodium Level 127L, Potassium Level 5.0, Chloride Level 89L, Carbon Dioxide Level 28, Anion Gap 10, Blood Urea Nitrogen 23H, Creatinine 1.46H, Estimat Glomerular Filtration Rate 35, BUN/ Creatinine Ratio 16, Glucose Level 204H, Calcium Level 8.8, Total Bilirubin 0.3 , Aspartate Amino Transf (AST/SGOT) 36H, Alanine Aminotransferase (ALT/SGPT) 25 , Alkaline Phosphatase 61, Total Protein 6.5, Albumin 3.2 05/04/17 04:25: White Blood Count 2.8L, Red Blood Count 2.83L, Hemoglobin 8.7L, Hematocrit 25L, Mean Corpuscular Volume 90, Mean Corpuscular Hemoglobin 31, Mean Corpuscular Hemoglobin Concent 34, Red Cell Distribution Width 11.2, Platelet Count 351, Mean Platelet Volume 8.8, Sodium Level 127L, Potassium Level 5.3H, Chloride Level 90L, Carbon Dioxide Level 24, Anion Gap 13, Blood Urea Nitrogen 29H, Creatinine 1.76H, Estimat Glomerular Filtration Rate 28, BUN/Creatinine Ratio 16 , Glucose Level 150H, Calcium Level 8.6, Total Bilirubin 0.3, Aspartate Amino Transf (AST/SGOT) 31, Alanine Aminotransferase (ALT/SGPT) 22, Alkaline Phosphatase 55, Total Protein 5.9L, Albumin 3.2 Procedures Consult urology r/t hematuria; renal US Assessment/Plan Assessment/Plan Assess & Plan/Chief Complaint 1. COPD Exacerbation-continue IV solu-medrol, O2, nebulizers, IS 2. Anemia-Continue to monitor H/H; recheck in AM 3. Hematuria- Consult Urology, Dr. Del Rosario; check renal US 4. CHF- Lasix 40mg PO; continue monitoring electrolytes; JOSE M dominguez 5. Weakness-Start PT and OT MELODY MCGEE DO May 04, 2017 08:34
[2017-05-04] MEDS: ARTIFICAL TEARS 0.4 ML UNIT DOSE (REFRESH PLUS) OU SCH ×3 (08:46→21:24)
[2017-05-04] MEDS: FAMOTIDINE 20MG/2ML IV (PEPCID) IVP SCH (08:46)
[2017-05-04] MEDS: chlordiazePOXIDE 25 MG (LIBRIUM) CAP NON-FORMULARY PO SCH ×2 (08:46→21:23)
[2017-05-04] MEDS: LOSARTAN 50 MG (COZAAR) TAB PO SCH ×2 (08:46→21:24)
[2017-05-04] MEDS: FUROSEMIDE 40 MG (LASIX) TAB PO SCH (08:46)
[2017-05-04] MEDS: DILTIAZEM 120 MG (CARDIZEM CD) CAP PO SCH (08:47)
[2017-05-04] MEDS: DIGOXIN 62.5 MCG (LANOXIN) TAB PO SCH (08:47)
--- NOTE | 2017-05-04 11:08 | Diagnostic Imaging Report ---
Clinical indication: Patient with renal insufficiency and hematuria. Exam: Ultrasound of both kidneys. Comparison: CT scan of the abdomen and pelvis performed without contrast dated 07/11/2015. Findings: There is a 1.5 cm partially exophytic hypoechoic area involving the upper anterior aspect of the right kidney which represents a cyst and was seen on the comparison study and is not significantly changed. There is a 1.6 cm exophytic cyst involving the inferior pole of the left kidney which was also seen on comparison study and is not significantly changed. There is another 1.2 cm cystic structure involving the midportion of the left kidney which is hypoechoic, but appears to have some echoes within it and may represent a complicated cyst. This was also seen on the prior scan and is not significantly changed in size. Otherwise, both kidneys are normal in size, shape, echogenicity and cortical thickness without hydronephrosis, stones, or other focal lesions with the right and left kidneys measuring 9.1 cm and 9.7 cm in their craniocaudal dimensions, respectively. Impression: 1: Bilateral renal cysts with possible complicated cyst involving the mid left kidney. Followup ultrasound both kidneys in 6 months is suggested to evaluate for interval change. 2. Otherwise, both kidneys are unremarkable. Dictated by: Dictated on workstation # [id number]
--- NOTE | 2017-05-04 12:50 | Occupational Ther Daily Note ---
OT Current Status-Daily Note Subjective Pt. is asked if she would like to shower. Pt. states, "if I had the energy for a shower, I wouldn't be here." Appearance Pt. is sitting in bed. Has oxygen on. Declines bathing/dressing. States that she is waiting on lunch. Agrees to work with OT briefly while she is waiting. Mental Status/Objective Patient Orientation: Person, Place Functional [place] Measure 0=Not Assessed/NA 4=Minimal Assistance 1=Total Assistance 5=Supervision or Setup 2=Maximal Assistance 6=Modified [place] 3=Moderate Assistance 7=Complete [place] ADL-Treatment Functional [place] Measure 0=Not Assessed/NA 4=Minimal Assistance 1=Total Assistance 5=Supervision or Setup 2=Maximal Assistance 6=Modified [place] 3=Moderate Assistance 7=Complete IndependenceIRFPAI Quality Coding Scale 6 Independent with activity with or without an assistive device 5 Patient requires set up or clean up by helper. Patient completes activity by themselves 4 Supervision or touching assist (CGA). [place] provide cues , steadying assist 3 The helper provides less than half the effort to complete the activity 2 The helper provides more than half the effort to complete the activity 1 Dependent. The helper does all the effort to complete an activity 7 Patient refused to complete or attempt activity 9 The patient did not perform the activity before the current illness or injury 88 Not attempted due to Medical conditions or safety concerns Eating (FIM): 5 (Pt.'s meal is set up for her when it comes. Pt. able to eat with no difficulty.) Eating (QC): 4 Lower Body Dressing (FIM): 5 (Pt. is able to sit on side of bed and freddie socks with no difficulty.) Transfers (B, C, W/C) (FIM): 5 (SBA with walker and extra time.) Pt. agrees to ambulate to door of room. Requires increased time and states, "I have to go slow." Ambulates back to chair and transfers to chair. Food has come and so after set up, pt. is able to feed self. States, "I'm just so tired. ' All needs met in room. Education OT Patient Education: Correct positioning, Energy conservation, Modified ADL techniques, Progress toward Goal/Update tx plan, Purpose of tx/functional activities, Reviewed precautions, Rehab process, Transfer techniques Teaching Recipient: Patient Teaching Methods: Demonstration, Discussion Response to Teaching: Verbalize Understanding, Return Demonstration OT Short Term Goals Short Term Goals 1=Demonstrate adherence to instructed precautions during ADL tasks. 2=Patient will verbalize/demonstrate understanding of assistive devices/ modifications for ADL. 3=Patient will improve strength/tolerance for activity to enable patient to perform ADL's. OT Nursing Home Goals [employer] Staff Member Goals Time Frame: May 17, 2017 Eating (FIM): 6 Eating (QC): 6 Groomin Oral Hygiene (QC): 6 Bathing(FIM): 6 Upper Body Dressing(FIM): 6 Lower Body Dressing(FIM): 6 Toileting(FIM): 6 Toileting Hygiene (QC): 6 Toilet/Commode Transfer(FIM): 6 Toilet/Commode Transfer (QC): 6 Shower Transfer(FIM): 5 Additional Goals: 1-Demonstrate ADL Tasks, 2-Verbalize Understanding, 3- ImproveStrength/[place] 1=Demonstrate adherence to instructed precautions during ADL tasks. 2=Patient will verbalize/demonstrate understanding of assistive devices/ modifications for ADL. 3=Patient will improve strength/tolerance for activity to enable patient to perform ADL's. OT Education/Plan Problem List/Assessment Assessment: Decreased Activ Tolerance, Decreased UE Strength, Dependent Transfers, Impaired Bed Mobility, Impaired I ADL's, Impaired Self-Care Skills Pt to benefit from skilled OT intervention for ADL training, transfers, strengthening, and home safety education to maximize level of function and allow safe discharge plan. Discharge Recommendations Plan/Recommendations: Continue POC Therapy D/C Recommendations: Home w/ Family Support Patient/Family Goals To get stronger. Treatment Plan/Plan of Care Treatment,Training & Education: Yes Patient would benefit from OT for education, treatment and training to promote independence in ADL's, mobility, safety and/or upper extremity function for ADL' s. Plan of Care: ADL Retraining, Functional Mobility, UE Funct Exercise/Act Treatment Duration: May 17, 2017 Visits Per Week: 5 Agreement: Yes Rehab Potential: Fair Time/GCodes Start Time: 11:55 Stop Time: 12:10 Total Time Billed (hr/min): 15 Billed Treatment Time 1, CHARITY FINN OT May 04, 2017 12:50
--- NOTE | 2017-05-04 14:57 | Physical Therapy Daily Note ---
PT Daily Note-Current Subjective Pt. in bed and agrees to therapy. She has no complaints during session. Mental Status Patient Orientation: Normal For Age Attachments: Oxygen Transfers Functional [place] Measure 0=Not Assessed/NA 4=Minimal Assistance 1=Total Assistance 5=Supervision or Setup 2=Maximal Assistance 6=Modified [place] 3=Moderate Assistance 7=Complete IndependenceIRFPAI Quality Coding Scale 6 Independent with activity with or without an assistive device 5 Patient requires set up or clean up by helper. Patient completes activity by themselves 4 Supervision or touching assist (CGA). [place] provide cues , steadying assist 3 The helper provides less than half the effort to complete the activity 2 The helper provides more than half the effort to complete the activity 1 Dependent. The helper does all the effort to complete an activity 7 Patient refused to complete or attempt activity 9 The patient did not perform the activity before the current illness or injury 88 Not attempted due to Medical conditions or safety concerns Transfers (B, C, W/C) (FIM): 5 Supine to/from Sit: 5 Sit to/from Stand: 5 Gait Training Does the Patient Walk?: Yes Distance (FIM): 1=up to 49 ft Distance: 40 ft Gait Level of Assist: 4 Gait Persons Needed: 1 Gait Assistive Device: FWW steady gait but becomes SOA very quickly with ambulation Exercises Supine Ex: Ankle pumps, Quad Set, Straight leg raise Supine Reps: 20 Seated Therapy Exercises: Long arc quads, Hip flexion Seated Reps: 20 Treatments gait, exercise Assessment Current Status: Good Progress Pt. does well with exercises and gait steadiness, however fatigues very quickly and needs seated rest due to SOA. Pt. up in bedside chair post session, O2 in situ, call light in reach and all needs met. PT Skilled Nursing Goals [employer] Coordinator Goals PT Skilled Nursing Goals Time Frame: May 10, 2017 Transfers (B,C,W/C) (FIM): 5 Sit to Lying (QC): 6 Lying-Sitting on Side/Bed(QC): 6 Sit to Stand (QC): 5 Rollin Gait (FIM): 5 Distance: 150' Walk 50ft with 2 Turns (QC): 4 Walk 150 ft (QC): 4 Gait Level of Assist: 5 Gait Assistive Device: FWW PT Plan Treatment/Plan Treatment Plan: Continue Plan of Care Treatment Plan: Bed Mobility, Education, Functional Activity [place], Functional Strength, Gait, Safety, Therapeutic Exercise, Transfers Treatment Duration: May 10, 2017 Visits Per Week: 5-6 Minutes/Day (M-F): 15-30 Minutes/Day (Sat/[place]): 15-30 Time/GCodes Time In: 1420 Time Out: 1435 Total Billed Treatment Time: 15 Total Billed Treatment 1, FA 15' DAVEY REYNA PT May 04, 2017 14:57
[2017-05-04 17:21] VITALS: BP 131/60
[2017-05-04] MEDS: MIRTAZAPINE 15 MG (REMERON) TAB PO SCH (21:24)
[2017-05-04] MEDS: ROSUVASTATIN 5 MG (CRESTOR) TABLET PO SCH (21:24)
[2017-05-04] MEDS: SENNA W/DOCUSATE (SENOKOT S) TABLET PO PRN (21:24)
[2017-05-04] MEDS: hydrOXYzine (ATARAX) 10 MG TAB PO SCH (21:24)
[2017-05-05] MEDS: RT-ALBUTEROL SULF 2.5 MG/3 ML PRE-MIX VIAL INH SCH ×6 (01:57→22:00)
[2017-05-05] MEDS: methylPREDNISolone 40 MG/ML (Solu-MEDROL) VIAL IV SCH ×3 (05:38→20:34)
[2017-05-05 06:00] VITALS: BP 157/69
[2017-05-05] MEDS: RT-ADVAIR HFA 115/21 MCG PER PUFF IH SCH ×2 (06:16→18:36)
[2017-05-05] MEDS: UMECLIDINIUM BROMIDE (INCRUSE ELLIPTA) 7'S IH SCH (06:16)
[2017-05-05 06:32] LABS: BASOPHILS % (AUTO) 0 % (0-10); EOSINOPHILS % (AUTO) 0 % (0-10); LYMPHOCYTES # (AUTO) 0.7 X 10^3 (1.0-4.0); LYMPHOCYTES % (AUTO) 8 % (12-44); MEAN CORPUSCULAR HEMOGLOBIN 31 PG (25-34); MEAN CORPUSCULAR HGB CONC 34 G/DL (32-36); MEAN CORPUSCULAR VOLUME 91 FL (80-99); MEAN PLATELET VOLUME 8.8 FL (7.4-10.4); MONOCYTES # (AUTO) 0.3 X 10^3 (0.0-1.0); MONOCYTES % (AUTO) 4 % (0-12); NEUTROPHILS # (AUTO) 7.2 X 10^3 (1.8-7.8); NEUTROPHILS % (AUTO) 88 % (42-75); PLATELET COUNT 391 10^3/uL (130-400); RED BLOOD COUNT 2.87 10^6/uL (4.35-5.85); RED CELL DISTRIBUTION WIDTH 11.3 % (10.0-14.5); WHITE BLOOD COUNT 8.2 10^3/uL (4.3-11.0)
[2017-05-05 06:45] LABS: BAND NEUTROPHILS 0 %; BASOPHILS % (MANUAL) 0 %; CRENATED RBC SLIGHT; EOSINOPHILS % (MANUAL) 0 %; LYMPHOCYTES % (MANUAL) 10 %; NEUTROPHILS % (MANUAL) 89 %; POIKILOCYTOSIS SLIGHT
--- NOTE | 2017-05-05 06:45 | Progress Note-Urology ---
Progress Note-Urology Progress Notes/Assess & Plan Progress/Assessment & Plan RENAL US SHOWS BILATERAL RENAL CYSTS, ONE ? COMPLEX PLAN CYSTOSCOPY LATER ON AND US IN 6 MONTHS Final Diagnosis HEMATURIA RUDI LOPEZ MD May 05, 2017 6:45 am
[2017-05-05 07:10] LABS: CREATININE SERUM 1.75 MG/DL (0.60-1.30)
[2017-05-05] MEDS: FAMOTIDINE 20MG/2ML IV (PEPCID) IVP SCH (08:16)
[2017-05-05] MEDS: chlordiazePOXIDE 25 MG (LIBRIUM) CAP NON-FORMULARY PO SCH ×2 (08:16→20:34)
[2017-05-05] MEDS: ARTIFICAL TEARS 0.4 ML UNIT DOSE (REFRESH PLUS) OU SCH ×3 (08:17→20:34)
[2017-05-05] MEDS: FUROSEMIDE 40 MG (LASIX) TAB PO SCH (08:17)
[2017-05-05] MEDS: LOSARTAN 50 MG (COZAAR) TAB PO SCH ×2 (08:17→20:35)
[2017-05-05] MEDS: DILTIAZEM 120 MG (CARDIZEM CD) CAP PO SCH (08:18)
[2017-05-05] MEDS: DIGOXIN 62.5 MCG (LANOXIN) TAB PO SCH (08:18)
[2017-05-05] MEDS: CATHETER FLUSH 10 ML SYR IV PRN (08:20)
--- NOTE | 2017-05-05 12:42 | Progress Note (SOAP) ---
Subjective Date Seen by Provider: May 05, 2017 Time Seen by Provider: 08:30 Subjective/Events-last exam Fwup CODP exacerbation, acute on chronic combined CHF, Acute on chronic anemia, weakness r/t recent illness. Still short of air but able to take a little deeper breath. Still weak. Objective Exam Vital Signs Date Time Temp Pulse Resp B/P (MAP) Pulse Ox O2 Delivery O2 Flow Rate FiO2 05/05/17 11:10 95 Nasal Cannula 3.00 05/05/17 08:00 98 Nasal Cannula 3.00 05/05/17 06:19 98 Nasal Cannula 3.00 05/05/17 06:18 98 Nasal Cannula 3.00 05/05/17 06:16 98 Nasal Cannula 3.00 05/05/17 06:00 98.4 92 22 157/69 99 Nasal Cannula 3.00 05/05/17 01:58 98 Nasal Cannula 3.00 05/04/17 22:01 98 Nasal Cannula 2.50 05/04/17 19:50 Nasal Cannula 3.00 05/04/17 18:39 Nasal Cannula 2.50 05/04/17 18:26 98 Nasal Cannula 3.00 05/04/17 17:21 96.7 83 20 131/60 97 Nasal Cannula 3.00 05/04/17 15:05 99 Nasal Cannula 3.00 I & O 05/05/17 07:00 Intake Total 900 ml Output Total 500 ml Balance 400 ml Capillary Refill : General Appearance: Mild Distress Neck: Supple Respiratory: Lungs Clear, Decreased Breath Sounds Cardiovascular: Regular Rate, Rhythm, Systolic Murmur Gastrointestinal: normal bowel sounds, non tender, soft Extremity: Non Tender, No Calf Tenderness, No Pedal Edema, Other (JOSE M hose and SCDS in place) Neurologic/Psychiatric: Alert Results Lab Laboratory Tests 05/05/17 06:07: White Blood Count 8.2, Red Blood Count 2.87L, Hemoglobin 8.9L, Hematocrit 26L, Mean Corpuscular Volume 91, Mean Corpuscular Hemoglobin 31, Mean Corpuscular Hemoglobin Concent 34, Red Cell Distribution Width 11.3, Platelet Count 391, Mean Platelet Volume 8.8, Neutrophils (%) (Auto) 88H, Lymphocytes (%) (Auto) 8L , Monocytes (%) (Auto) 4, Eosinophils (%) (Auto) 0, Basophils (%) (Auto) 0, Neutrophils # (Auto) 7.2, Lymphocytes # (Auto) 0.7L, Monocytes # (Auto) 0.3, Eosinophils # (Auto) 0.0, Basophils # (Auto) 0.0, Neutrophils % (Manual) 89, Lymphocytes % (Manual) 10, Monocytes % (Manual) 1, Eosinophils % (Manual) 0, Basophils % (Manual) 0, Band Neutrophils 0, Poikilocytosis SLIGHT, Crenated Cell SLIGHT, Sodium Level 126L, Potassium Level 5.0, Chloride Level 90L, Carbon Dioxide Level 24, Anion Gap 12, Blood Urea Nitrogen 36H, Creatinine 1.75H, Estimat Glomerular Filtration Rate 28, BUN/Creatinine Ratio 21, Glucose Level 131H, Calcium Level 9.0 Assessment/Plan Assessment/Plan Assess & Plan/Chief Complaint 1. COPD Exacerbation-wean solu-medrol, continue O2, nebulizers, IS 2. Anemia--H/H stable 3. Hematuria--urology looking at cystoscope as outpatient 4. CHF- Lasix 40mg PO daily; continue monitoring electrolytes; JOSE M dominguez 5. Weakness due to recent illness of sepsis with pneumonia-Continue PT and OT MELODY MCGEE DO May 05, 2017 12:42 pm
--- NOTE | 2017-05-05 13:22 | Occupational Ther Daily Note ---
OT Current Status-Daily Note Subjective Pt. states that she is "feeling better." Appearance Pt. in bed. Dressed in nightgown from home. Agrees to work with OT. Mental Status/Objective Patient Orientation: Person, Place Functional [place] Measure 0=Not Assessed/NA 4=Minimal Assistance 1=Total Assistance 5=Supervision or Setup 2=Maximal Assistance 6=Modified [place] 3=Moderate Assistance 7=Complete [place] ADL-Treatment Functional [place] Measure 0=Not Assessed/NA 4=Minimal Assistance 1=Total Assistance 5=Supervision or Setup 2=Maximal Assistance 6=Modified [place] 3=Moderate Assistance 7=Complete IndependenceIRFPAI Quality Coding Scale 6 Independent with activity with or without an assistive device 5 Patient requires set up or clean up by helper. Patient completes activity by themselves 4 Supervision or touching assist (CGA). [place] provide cues , steadying assist 3 The helper provides less than half the effort to complete the activity 2 The helper provides more than half the effort to complete the activity 1 Dependent. The helper does all the effort to complete an activity 7 Patient refused to complete or attempt activity 9 The patient did not perform the activity before the current illness or injury 88 Not attempted due to Medical conditions or safety concerns Pt. agrees to bilateral UE strengthening. Pt. is issued red theraband. Completed 10 reps x 3 exercises x 2 sets to increase overall strength in multiple planes. Tolerated treatment well with increased rest breaks and cues to do exercises correctly. Pt. did write them down so that she would remember them. Pt. declines all other out of bed activity. Education OT Patient Education: Energy conservation, Exercise program, Home exercise program Teaching Recipient: Patient Teaching Methods: Demonstration, Discussion Response to Teaching: Verbalize Understanding, Return Demonstration OT Short Term Goals Short Term Goals 1=Demonstrate adherence to instructed precautions during ADL tasks. 2=Patient will verbalize/demonstrate understanding of assistive devices/ modifications for ADL. 3=Patient will improve strength/tolerance for activity to enable patient to perform ADL's. OT Shelter Goals Shelter Goals Time Frame: May 17, 2017 Eating (FIM): 6 Eating (QC): 6 Groomin Oral Hygiene (QC): 6 Bathing(FIM): 6 Upper Body Dressing(FIM): 6 Lower Body Dressing(FIM): 6 Toileting(FIM): 6 Toileting Hygiene (QC): 6 Toilet/Commode Transfer(FIM): 6 Toilet/Commode Transfer (QC): 6 Shower Transfer(FIM): 5 Additional Goals: 1-Demonstrate ADL Tasks, 2-Verbalize Understanding, 3- ImproveStrength/[place] 1=Demonstrate adherence to instructed precautions during ADL tasks. 2=Patient will verbalize/demonstrate understanding of assistive devices/ modifications for ADL. 3=Patient will improve strength/tolerance for activity to enable patient to perform ADL's. OT Education/Plan Problem List/Assessment Assessment: Decreased Activ Tolerance, Decreased UE Strength, Dependent Transfers, Impaired I ADL's Pt to benefit from skilled OT intervention for ADL training, transfers, strengthening, and home safety education to maximize level of function and allow safe discharge plan. Discharge Recommendations Plan/Recommendations: Continue POC Therapy D/C Recommendations: Home w/ Family Support Treatment Plan/Plan of Care Patient would benefit from OT for education, treatment and training to promote independence in ADL's, mobility, safety and/or upper extremity function for ADL' s. Plan of Care: ADL Retraining, Functional Mobility, UE Funct Exercise/Act Treatment Duration: May 17, 2017 Visits Per Week: 5 Agreement: Yes Rehab Potential: Fair Time/GCodes Start Time: 11:45 Stop Time: 12:00 Total Time Billed (hr/min): 15 Billed Treatment Time 1, EX CHARITY JOYCE OT May 05, 2017 13:22
--- NOTE | 2017-05-05 14:50 | Physical Therapy Daily Note ---
PT Daily Note-Current Subjective Patient in bed pre tx, agrees to PT, is very drowsy because she just woke up. Has to use the restroom. Patient has no complaints of pain. Appearance Patient in recliner post tx with legs elevated, has nurse call, phone, tray, all needs met. Mental Status Patient Orientation: Normal For Age Attachments: Oxygen 3L of O2 nasal canula Transfers Functional [place] Measure 0=Not Assessed/NA 4=Minimal Assistance 1=Total Assistance 5=Supervision or Setup 2=Maximal Assistance 6=Modified [place] 3=Moderate Assistance 7=Complete IndependenceIRFPAI Quality Coding Scale 6 Independent with activity with or without an assistive device 5 Patient requires set up or clean up by helper. Patient completes activity by themselves 4 Supervision or touching assist (CGA). [place] provide cues , steadying assist 3 The helper provides less than half the effort to complete the activity 2 The helper provides more than half the effort to complete the activity 1 Dependent. The helper does all the effort to complete an activity 7 Patient refused to complete or attempt activity 9 The patient did not perform the activity before the current illness or injury 88 Not attempted due to Medical conditions or safety concerns Transfers (B, C, W/C) (FIM): 4 Scootin Supine to/from Sit: 5 Sit to/from Stand: 4 sit to stand CGA Gait Training Gait (FIM): 1 Distance: 30', 10' Gait Level of Assist: 4 Gait Persons Needed: 1 Gait Assistive Device: FWW CGA, patient ambulated to the restroom about 10' and then from there she ambulated out to the hallway and then back to the chair (30'), patient fatigues very quickly, gets SOB, cues for purse lip breathing. After tx she wanted to know if I could tell the respiratory therapist that she needed a breathing treatment, he was right out in the hallway and he said he would be in there soon. Exercises Seated Therapy Exercises: Ankle pumps, Long arc quads, Hip flexion Seated Reps: 15 Treatments bed mobility and transfers, ambulation, functional strengthening Assessment Current Status: Fair Progress patient fatigues very quickly, gets very SOB PT Half-Way Goals Supplier Manager Goals PT Supplier Manager Goals Time Frame: May 10, 2017 Transfers (B,C,W/C) (FIM): 5 Sit to Lying (QC): 6 Lying-Sitting on Side/Bed(QC): 6 Sit to Stand (QC): 5 Rollin Gait (FIM): 5 Distance: 150' Walk 50ft with 2 Turns (QC): 4 Walk 150 ft (QC): 4 Gait Level of Assist: 5 Gait Assistive Device: FWW PT Plan Problem List Problem List: Activity Tolerance, Functional Strength, Safety, Balance, Gait, Transfer, Bed Mobility Treatment/Plan Treatment Plan: Continue Plan of Care Treatment Plan: Bed Mobility, Education, Functional Activity [place], Functional Strength, Gait, Safety, Therapeutic Exercise, Transfers Treatment Duration: May 10, 2017 Visits Per Week: 5-6 Minutes/Day (M-F): 15-30 Minutes/Day (Sat/[place]): 15-30 Safety Risks/Education Patient Education: Gait Training, Transfer Techniques, Correct Positioning, Safety Issues Teaching Recipient: Patient Teaching Methods: Demonstration, Discussion Response to Teaching: Reinforcement Needed Time/GCodes Time In: 1430 Time Out: 1445 Total Billed Treatment Time: 15 Total Billed Treatment 1 visit GT 15' FLY SAAB PT May 05, 2017 14:50
[2017-05-05 17:53] VITALS: BP 157/71
[2017-05-05] MEDS: ROSUVASTATIN 5 MG (CRESTOR) TABLET PO SCH (20:35)
[2017-05-05] MEDS: hydrOXYzine (ATARAX) 10 MG TAB PO SCH (20:35)
[2017-05-05] MEDS: MIRTAZAPINE 15 MG (REMERON) TAB PO SCH (20:35)
[2017-05-06] MEDS: RT-ALBUTEROL SULF 2.5 MG/3 ML PRE-MIX VIAL INH SCH ×6 (02:33→22:08)
[2017-05-06 05:18] VITALS: BP 119/58
[2017-05-06] MEDS: RT-ADVAIR HFA 115/21 MCG PER PUFF IH SCH ×2 (06:35→18:42)
[2017-05-06] MEDS: UMECLIDINIUM BROMIDE (INCRUSE ELLIPTA) 7'S IH SCH (06:35)
[2017-05-06] MEDS: methylPREDNISolone 40 MG/ML (Solu-MEDROL) VIAL IV SCH ×2 (08:37→20:42)
[2017-05-06] MEDS: ARTIFICAL TEARS 0.4 ML UNIT DOSE (REFRESH PLUS) OU SCH ×3 (08:37→20:42)
[2017-05-06] MEDS: FAMOTIDINE 20MG/2ML IV (PEPCID) IVP SCH ×2 (08:37→09:07)
[2017-05-06] MEDS: LOSARTAN 50 MG (COZAAR) TAB PO SCH ×2 (08:38→20:42)
[2017-05-06] MEDS: DIGOXIN 62.5 MCG (LANOXIN) TAB PO SCH (08:38)
[2017-05-06] MEDS: DILTIAZEM 120 MG (CARDIZEM CD) CAP PO SCH (08:38)
[2017-05-06] MEDS: FUROSEMIDE 40 MG (LASIX) TAB PO SCH (08:38)
[2017-05-06] MEDS: chlordiazePOXIDE 25 MG (LIBRIUM) CAP NON-FORMULARY PO SCH ×2 (08:39→20:42)
[2017-05-06] MEDS ORDERED: FUROSEMIDE 20 MG (LASIX) TAB PO SCH (09:00)
--- NOTE | 2017-05-06 12:30 | Physical Therapy Daily Note ---
PT Daily Note-Current Subjective Pt declined first attempt, requested I return after she has had a breathing treatment. Mental Status Patient Orientation: Person, Place, Time, Situation Transfers Functional [place] Measure 0=Not Assessed/NA 4=Minimal Assistance 1=Total Assistance 5=Supervision or Setup 2=Maximal Assistance 6=Modified [place] 3=Moderate Assistance 7=Complete IndependenceIRFPAI Quality Coding Scale 6 Independent with activity with or without an assistive device 5 Patient requires set up or clean up by helper. Patient completes activity by themselves 4 Supervision or touching assist (CGA). [place] provide cues , steadying assist 3 The helper provides less than half the effort to complete the activity 2 The helper provides more than half the effort to complete the activity 1 Dependent. The helper does all the effort to complete an activity 7 Patient refused to complete or attempt activity 9 The patient did not perform the activity before the current illness or injury 88 Not attempted due to Medical conditions or safety concerns Sit to/from Stand: 4 (CGA for safety. Skilled cues/reminders for safe hand placement. ) Gait Training Does the Patient Walk?: Yes Gait (FIM): 2 Distance (FIM): 0=250-35 ft Distance: 125 ft Gait Assistive Device: FWW Oxygen in situ during and post treatment. Gait is slow but steady. No LOB and good management of fWW. Exercises Seated Therapy Exercises: Ankle pumps, Long arc quads, Hip flexion, Hip abd/add Seated Reps: 12 (To increase functional act tolerance and strengh for transfers ) Assessment Current Status: Good Progress Improved tolerance to gait today. Pt felt that the breathing treatment helped her to walk further. PT Long-Term Goals General Internal Medicine Physician Goals PT General Internal Medicine Physician Goals Time Frame: May 10, 2017 Transfers (B,C,W/C) (FIM): 5 Sit to Lying (QC): 6 Lying-Sitting on Side/Bed(QC): 6 Sit to Stand (QC): 5 Rollin Gait (FIM): 5 Distance: 150' Walk 50ft with 2 Turns (QC): 4 Walk 150 ft (QC): 4 Gait Level of Assist: 5 Gait Assistive Device: FWW PT Plan Problem List Problem List: Activity Tolerance, Functional Strength, Safety Treatment/Plan Treatment Plan: Continue Plan of Care Treatment Plan: Bed Mobility, Education, Functional Activity [place], Functional Strength, Gait, Safety, Therapeutic Exercise, Transfers Treatment Duration: May 10, 2017 Visits Per Week: 5-6 Minutes/Day (M-F): 15-30 Minutes/Day (Sat/[place]): 15-30 Safety Risks/Education Patient Education: Safety Issues Teaching Recipient: Patient Teaching Methods: Demonstration, Discussion Response to Teaching: Reinforcement Needed Discharge Recommendations Therapy D/C Recommendations: Physical Therapy Home Care Time/GCodes Time In: 1138 Time Out: 1201 Total Billed Treatment Time: 23 Total Billed Treatment visit EX 10 GT 13 JO ANN GARVEY PT May 06, 2017 12:30
--- NOTE | 2017-05-06 15:02 | Occ Therapy Progress Note ---
Therapy Progress Note Attempted treatment. Pt. asleep. Wakes up and states that she is in too much pain. Reports that she has "gas like" type pains in abdomen. Pt. is encouraged to walk, which might help to relieve pressure. Pt. declines. OT encourages any out of bed activity. Pt. still refuses. Nursing notified that pt. reports abdominal gas pain, but does not report number. Nursing aware. 1440 1, visit refused no charge CHARITY JOYCE OT May 06, 2017 15:02
[2017-05-06 17:28] VITALS: BP 131/60
[2017-05-06] MEDS: ROSUVASTATIN 5 MG (CRESTOR) TABLET PO SCH (20:42)
[2017-05-06] MEDS: hydrOXYzine (ATARAX) 10 MG TAB PO SCH (20:42)
[2017-05-06] MEDS: MIRTAZAPINE 15 MG (REMERON) TAB PO SCH (20:42)
--- NOTE | 2017-05-06 21:17 | Progress Note (SOAP) ---
Subjective Date Seen by Provider: May 06, 2017 Time Seen by Provider: 08:35 Subjective/Events-last exam Fwup COPD exacerbation, acute on chronic combined CHF, Acute on chronic anemia, weakness r/t recent illness. Still some shortness of air but may be a little better. Objective Exam Vital Signs Date Time Temp Pulse Resp B/P (MAP) Pulse Ox O2 Delivery O2 Flow Rate FiO2 05/06/17 18:44 Nasal Cannula 3.00 05/06/17 18:43 99 Nasal Cannula 3.00 05/06/17 17:28 98.6 78 20 131/60 100 Nasal Cannula 3.00 05/06/17 15:18 93 Nasal Cannula 3.00 05/06/17 11:06 98 Nasal Cannula 3.00 05/06/17 08:00 98 Nasal Cannula 3.00 05/06/17 06:43 98 Nasal Cannula 3.00 05/06/17 06:38 98 Nasal Cannula 3.00 05/06/17 06:35 98 Nasal Cannula 3.00 05/06/17 05:18 99.8 89 20 119/58 98 Nasal Cannula 3.00 05/06/17 02:34 99 Nasal Cannula 3.00 05/05/17 22:01 96 Nasal Cannula 3.00 I & O 05/06/17 07:00 Intake Total 1500 ml Output Total 1400 ml Balance 100 ml Capillary Refill : General Appearance: No Apparent Distress Neck: Supple Respiratory: Lungs Clear, Decreased Breath Sounds Cardiovascular: Regular Rate, Rhythm, Systolic Murmur Gastrointestinal: normal bowel sounds, non tender, soft Extremity: Non Tender, No Calf Tenderness, No Pedal Edema Neurologic/Psychiatric: Alert, Oriented x3 Assessment/Plan Assessment/Plan Assess & Plan/Chief Complaint 1. COPD Exacerbation-continue solu-medrol and when wean will go to dexamethasone tablets, continue O2, nebulizers, IS 2. Anemia--H/H stable, recheck in AM 3. Hematuria--urology looking at cystoscope as outpatient 4. CHF-improved, decrease Lasix to 20mg PO daily; continue monitoring electrolytes; JOSE M dominguez 5. Weakness due to recent illness of sepsis with pneumonia-Continue PT and OT MELODY MCGEE DO May 06, 2017 9:17 pm
[2017-05-07] MEDS: RT-ALBUTEROL SULF 2.5 MG/3 ML PRE-MIX VIAL INH SCH ×6 (02:26→21:32)
[2017-05-07 05:00] VITALS: BP 127/61
[2017-05-07 05:31] LABS: BASOPHILS % (AUTO) 0 % (0-10); EOSINOPHILS % (AUTO) 0 % (0-10); LYMPHOCYTES # (AUTO) 0.5 X 10^3 (1.0-4.0); LYMPHOCYTES % (AUTO) 9 % (12-44); MEAN CORPUSCULAR HEMOGLOBIN 30 PG (25-34); MEAN CORPUSCULAR HGB CONC 33 G/DL (32-36); MEAN CORPUSCULAR VOLUME 92 FL (80-99); MEAN PLATELET VOLUME 8.9 FL (7.4-10.4); MONOCYTES # (AUTO) 0.4 X 10^3 (0.0-1.0); MONOCYTES % (AUTO) 8 % (0-12); NEUTROPHILS # (AUTO) 4.5 X 10^3 (1.8-7.8); NEUTROPHILS % (AUTO) 83 % (42-75); PLATELET COUNT 340 10^3/uL (130-400); RED CELL DISTRIBUTION WIDTH 11.2 % (10.0-14.5); WHITE BLOOD COUNT 5.4 10^3/uL (4.3-11.0)
[2017-05-07 05:53] LABS: CALCIUM 8.5 MG/DL (8.5-10.1); CREATININE SERUM 1.42 MG/DL (0.60-1.30); POTASSIUM 5.1 MMOL/L (3.6-5.0)
[2017-05-07] MEDS: RT-ADVAIR HFA 115/21 MCG PER PUFF IH SCH ×2 (07:08→18:41)
[2017-05-07] MEDS: UMECLIDINIUM BROMIDE (INCRUSE ELLIPTA) 7'S IH SCH (07:08)
[2017-05-07] MEDS: DIGOXIN 62.5 MCG (LANOXIN) TAB PO SCH (08:37)
[2017-05-07] MEDS: FUROSEMIDE 20 MG (LASIX) TAB PO SCH (08:38)
[2017-05-07] MEDS: LOSARTAN 50 MG (COZAAR) TAB PO SCH ×2 (08:38→20:41)
[2017-05-07] MEDS: ARTIFICAL TEARS 0.4 ML UNIT DOSE (REFRESH PLUS) OU SCH ×3 (08:38→20:43)
[2017-05-07] MEDS: DILTIAZEM 120 MG (CARDIZEM CD) CAP PO SCH (08:38)
[2017-05-07] MEDS: FAMOTIDINE 20MG/2ML IV (PEPCID) IVP SCH (08:38)
[2017-05-07] MEDS: chlordiazePOXIDE 25 MG (LIBRIUM) CAP NON-FORMULARY PO SCH ×2 (08:39→20:57)
[2017-05-07] MEDS: methylPREDNISolone 40 MG/ML (Solu-MEDROL) VIAL IV SCH ×2 (08:39→20:41)
--- NOTE | 2017-05-07 12:59 | Physical Therapy Daily Note ---
PT Daily Note-Current Subjective Pt in bed, agreeable. "I was just talking about going for a walk". Mental Status Patient Orientation: Person, Place, Time, Situation Attachments: Oxygen Transfers Functional [place] Measure 0=Not Assessed/NA 4=Minimal Assistance 1=Total Assistance 5=Supervision or Setup 2=Maximal Assistance 6=Modified [place] 3=Moderate Assistance 7=Complete IndependenceIRFPAI Quality Coding Scale 6 Independent with activity with or without an assistive device 5 Patient requires set up or clean up by helper. Patient completes activity by themselves 4 Supervision or touching assist (CGA). [place] provide cues , steadying assist 3 The helper provides less than half the effort to complete the activity 2 The helper provides more than half the effort to complete the activity 1 Dependent. The helper does all the effort to complete an activity 7 Patient refused to complete or attempt activity 9 The patient did not perform the activity before the current illness or injury 88 Not attempted due to Medical conditions or safety concerns Supine to/from Sit: 5 Sit to/from Stand: 5 Weight Bearing Weight Bearing Restriction: Full Weight Bearing Location Restriction: LE Bilateral Gait Training Does the Patient Walk?: Yes Gait (FIM): 4 Distance (FIM): 3=150 ft Distance: 150 Walk 50 ft with 2 Turns(QC): 4 Walk 150 ft (QC): 4 Gait Level of Assist: 4 Gait Persons Needed: 1 Gait Assistive Device: FWW Pt ambulated with occasional unsteadiness but able to maintain balance without external support. Assist with O2 tank. Treatments Ambulation with FWW. Slow, deliberate gait, occasionally unsteady but maintained balance (I). O2 in situ, up in chair post treatment. Assessment Current Status: Good Progress Pt tolerated well. O2 sats on 3L at 90-01% post walk. PT Shelter Goals Deputy Sheriff Chief Goals PT Deputy Sheriff Chief Goals Time Frame: May 10, 2017 Transfers (B,C,W/C) (FIM): 5 Sit to Lying (QC): 6 Lying-Sitting on Side/Bed(QC): 6 Sit to Stand (QC): 5 Rollin Gait (FIM): 5 Distance: 150' Walk 50ft with 2 Turns (QC): 4 Walk 150 ft (QC): 4 Gait Level of Assist: 5 Gait Assistive Device: FWW PT Plan Problem List Problem List: Activity Tolerance, Functional Strength, Safety, Balance, Gait, Transfer Treatment/Plan Treatment Plan: Continue Plan of Care Treatment Plan: Bed Mobility, Education, Functional Activity [place], Functional Strength, Gait, Safety, Therapeutic Exercise, Transfers Treatment Duration: May 10, 2017 Visits Per Week: 5-6 Minutes/Day (M-F): 15-30 Minutes/Day (Sat/[place]): 15-30 Pt/Family Agrees w/Plan: Yes Time/GCodes Time In: 1022 Time Out: 1037 Total Billed Treatment Time: 15 Total Billed Treatment 1, FA x 15' G Codes Necessary: No LENORE CHAVEZ DPT May 07, 2017 12:59
--- NOTE | 2017-05-07 13:14 | Occupational Ther Daily Note ---
OT Current Status-Daily Note Subjective Pt agrees to therapy, no c/o pain. Mental Status/Objective Functional [place] Measure 0=Not Assessed/NA 4=Minimal Assistance 1=Total Assistance 5=Supervision or Setup 2=Maximal Assistance 6=Modified [place] 3=Moderate Assistance 7=Complete [place] ADL-Treatment Pt in restroom when therapist arrives. Pt sit to stand with supervision. Washed hands at sink with SBA. Pt requests to complete oral care. Pt brushed teeth with supervision while standing at sink. Gait to bed with SBA using FWW, assist to manage oxygen tubing. Transfer to EOB with supervision. Rest break required due to fatigue. Pt declined further ADL activity, states she will complete later. Pt states she would like to take a walk later this morning as well. Pt performed sit to supine with supervision. Pt in bed with needs met after session. Functional [place] Measure 0=Not Assessed/NA 4=Minimal Assistance 1=Total Assistance 5=Supervision or Setup 2=Maximal Assistance 6=Modified [place] 3=Moderate Assistance 7=Complete IndependenceIRFPAI Quality Coding Scale 6 Independent with activity with or without an assistive device 5 Patient requires set up or clean up by helper. Patient completes activity by themselves 4 Supervision or touching assist (CGA). [place] provide cues , steadying assist 3 The helper provides less than half the effort to complete the activity 2 The helper provides more than half the effort to complete the activity 1 Dependent. The helper does all the effort to complete an activity 7 Patient refused to complete or attempt activity 9 The patient did not perform the activity before the current illness or injury 88 Not attempted due to Medical conditions or safety concerns Grooming (FIM): 5 OT Short Term Goals Short Term Goals 1=Demonstrate adherence to instructed precautions during ADL tasks. 2=Patient will verbalize/demonstrate understanding of assistive devices/ modifications for ADL. 3=Patient will improve strength/tolerance for activity to enable patient to perform ADL's. OT Assignment Manager Goals Snf Goals Time Frame: May 17, 2017 Eating (FIM): 6 Eating (QC): 6 Groomin Oral Hygiene (QC): 6 Bathing(FIM): 6 Upper Body Dressing(FIM): 6 Lower Body Dressing(FIM): 6 Toileting(FIM): 6 Toileting Hygiene (QC): 6 Toilet/Commode Transfer(FIM): 6 Toilet/Commode Transfer (QC): 6 Shower Transfer(FIM): 5 Additional Goals: 1-Demonstrate ADL Tasks, 2-Verbalize Understanding, 3- ImproveStrength/[place] 1=Demonstrate adherence to instructed precautions during ADL tasks. 2=Patient will verbalize/demonstrate understanding of assistive devices/ modifications for ADL. 3=Patient will improve strength/tolerance for activity to enable patient to perform ADL's. OT Education/Plan Problem List/Assessment Pt to benefit from skilled OT intervention for ADL training, transfers, strengthening, and home safety education to maximize level of function and allow safe discharge plan. Discharge Recommendations Plan/Recommendations: Continue POC Treatment Plan/Plan of Care Patient would benefit from OT for education, treatment and training to promote independence in ADL's, mobility, safety and/or upper extremity function for ADL' s. Plan of Care: ADL Retraining, Functional Mobility, UE Funct Exercise/Act Treatment Duration: May 17, 2017 Visits Per Week: 5 Agreement: Yes Rehab Potential: Fair Time/GCodes Start Time: 09:07 Stop Time: 09:22 Total Time Billed (hr/min): 15 Billed Treatment Time 1 visit, ADL(15minutes) JARAD MARINO OT May 07, 2017 13:14
--- NOTE | 2017-05-07 13:27 | CONSULTATION REPORT ---
DATE OF CONSULTATION: 05/04/2017 ATTENDING PHYSICIAN: Dr. Paz. SUMMARY: 69-year-old white lady admitted by Dr. Paz for persistent and recurrent pneumonia with exacerbation of COPD, history of UTI, was found to have microscopic hematuria and pyuria. She denies any gross hematuria. She denies any voiding symptoms at all. History and physical was reviewed. IMPRESSION: Microscopic hematuria. RECOMMENDATION: 1. Will review the renal ultrasound that was ordered by Dr. Paz. 2. Later on, the patient will need a cystoscopy to complete the work-up. It is noted that the patient is a nonsmoker, she used to but she quit. Job ID: [id number] Dictated Date: 05/07/2017 11:03:00 Charge Rn Date: 05/07/2017 13:19:57/renetta
[2017-05-07] MEDS ORDERED: inSUlin (REGULAR) HUMAN 1 UNIT/0.01 ML (CHARGE PER UNIT) SC NR (14:30)
[2017-05-07] MEDS ORDERED: DEXTROSE 50% 50 ML (IMS) SYR IV NR (14:30)
[2017-05-07] MEDS: SOD POLYSTERENE 15 GM/60 ML (KAYEXALATE) UNIT DOSE PO SCH ×2 (15:20→21:33)
[2017-05-07 18:20] VITALS: BP 135/58
[2017-05-07] MEDS: MIRTAZAPINE 15 MG (REMERON) TAB PO SCH (20:42)
[2017-05-07] MEDS: ROSUVASTATIN 5 MG (CRESTOR) TABLET PO SCH (20:42)
[2017-05-07] MEDS: hydrOXYzine (ATARAX) 10 MG TAB PO SCH (20:42)
[2017-05-07] MEDS: CATHETER FLUSH 10 ML SYR IV PRN (20:43)
[2017-05-07] MEDS: ONDANSETRON 4 MG/2 ML (SDV) Z0FRAN IVP PRN (22:12)
[2017-05-08] MEDS: RT-ALBUTEROL SULF 2.5 MG/3 ML PRE-MIX VIAL INH SCH ×6 (02:11→22:10)
[2017-05-08 05:36] LABS: BASOPHILS % (AUTO) 0 % (0-10); EOSINOPHILS % (AUTO) 0 % (0-10); LYMPHOCYTES # (AUTO) 0.5 X 10^3 (1.0-4.0); LYMPHOCYTES % (AUTO) 10 % (12-44); MEAN CORPUSCULAR HEMOGLOBIN 30 PG (25-34); MEAN CORPUSCULAR HGB CONC 32 G/DL (32-36); MEAN CORPUSCULAR VOLUME 93 FL (80-99); MEAN PLATELET VOLUME 8.9 FL (7.4-10.4); MONOCYTES # (AUTO) 0.5 X 10^3 (0.0-1.0); MONOCYTES % (AUTO) 10 % (0-12); NEUTROPHILS # (AUTO) 4.2 X 10^3 (1.8-7.8); NEUTROPHILS % (AUTO) 81 % (42-75); PLATELET COUNT 339 10^3/uL (130-400); RED BLOOD COUNT 2.55 10^6/uL (4.35-5.85); RED CELL DISTRIBUTION WIDTH 11.2 % (10.0-14.5); WHITE BLOOD COUNT 5.2 10^3/uL (4.3-11.0)
[2017-05-08 05:52] LABS: ALBUMIN 2.8 GM/DL (3.2-4.5); CALCIUM 8.2 MG/DL (8.5-10.1); CREATININE SERUM 1.23 MG/DL (0.60-1.30); PHOSPHORUS 3.5 MG/DL (2.3-4.7); POTASSIUM 3.8 MMOL/L (3.6-5.0)
[2017-05-08 06:25] VITALS: BP 134/63
[2017-05-08] MEDS: UMECLIDINIUM BROMIDE (INCRUSE ELLIPTA) 7'S IH SCH (07:03)
[2017-05-08] MEDS: RT-ADVAIR HFA 115/21 MCG PER PUFF IH SCH ×2 (07:03→18:13)
[2017-05-08] MEDS: LOSARTAN 50 MG (COZAAR) TAB PO SCH ×2 (08:55→21:13)
[2017-05-08] MEDS: DIGOXIN 62.5 MCG (LANOXIN) TAB PO SCH (08:55)
[2017-05-08] MEDS: methylPREDNISolone 40 MG/ML (Solu-MEDROL) VIAL IV SCH ×2 (08:55→21:13)
[2017-05-08] MEDS: ARTIFICAL TEARS 0.4 ML UNIT DOSE (REFRESH PLUS) OU SCH ×3 (08:55→21:13)
[2017-05-08] MEDS: chlordiazePOXIDE 25 MG (LIBRIUM) CAP NON-FORMULARY PO SCH ×2 (08:56→21:14)
[2017-05-08] MEDS: FUROSEMIDE 20 MG (LASIX) TAB PO SCH (08:56)
[2017-05-08] MEDS: DILTIAZEM 120 MG (CARDIZEM CD) CAP PO SCH (08:56)
[2017-05-08] MEDS: FAMOTIDINE 20MG/2ML IV (PEPCID) IVP SCH (09:00)
--- NOTE | 2017-05-08 09:39 | Physical Therapy Daily Note ---
PT Daily Note-Current Subjective States that she has already been up walking today but she will do it again. Transfers Functional [place] Measure 0=Not Assessed/NA 4=Minimal Assistance 1=Total Assistance 5=Supervision or Setup 2=Maximal Assistance 6=Modified [place] 3=Moderate Assistance 7=Complete IndependenceIRFPAI Quality Coding Scale 6 Independent with activity with or without an assistive device 5 Patient requires set up or clean up by helper. Patient completes activity by themselves 4 Supervision or touching assist (CGA). [place] provide cues , steadying assist 3 The helper provides less than half the effort to complete the activity 2 The helper provides more than half the effort to complete the activity 1 Dependent. The helper does all the effort to complete an activity 7 Patient refused to complete or attempt activity 9 The patient did not perform the activity before the current illness or injury 88 Not attempted due to Medical conditions or safety concerns Transfers (B, C, W/C) (FIM): 5 Sit to/from Stand: 5 Bed to/from Chair: 5 Gait Training Gait (FIM): 5 Distance (FIM): 3=150 ft Distance: 200' Gait Level of Assist: 5 Gait Persons Needed: 1 Gait Assistive Device: FWW Assessment Current Status: Excellent Progress Patient continues to have SOB during gait. PT Custom Dressmaker Goals Custom Dressmaker Goals PT Nursing Home Goals Time Frame: May 10, 2017 Transfers (B,C,W/C) (FIM): 5 Gait (FIM): 5 Distance: 150' Gait Level of Assist: 5 Gait Assistive Device: FWW PT Plan Treatment/Plan Treatment Plan: Continue Plan of Care Treatment Plan: Bed Mobility, Education, Functional Activity [place], Functional Strength, Gait, Safety, Therapeutic Exercise, Transfers Treatment Duration: May 10, 2017 Visits Per Week: 5-6 Minutes/Day (M-F): 15-30 Minutes/Day (Sat/[place]): 15-30 Time/GCodes Time In: 919 Time Out: 934 Total Billed Treatment Time: 15' Total Billed Treatment 1, GT x 15' G Codes Necessary: STANISLAW Dejesus PT May 08, 2017 09:39
--- NOTE | 2017-05-08 13:07 | Progress Note (SOAP) ---
Subjective Subjective Date Seen by Provider: May 08, 2017 Time Seen by Provider: 11:00 76 yo F here for COPD exacerbation, weakness- pt reports doing alright except she wonders about her hgb and that her balance seems off and she is weak. Denies much pain- feels like she is breathing decent again. Review of Systems General: No Chills, No Night Sweats HEENT: No Head Aches, No Eye Pain Pulmonary: No Dyspnea, No Cough Cardiovascular: No: Chest Pain, Palpitations Gastrointestinal: No: Abdominal Pain, Nausea, Vomiting Genitourinary: No Dysuria Musculoskeletal: No: neck pain, shoulder pain Neurological: Weakness Objective Exam Vital Signs Vital Signs Date Time Temp Pulse Resp B/P (MAP) Pulse Ox O2 Delivery O2 Flow Rate FiO2 05/08/17 11:12 98 Nasal Cannula 3.00 05/08/17 07:05 Nasal Cannula 3.00 05/08/17 06:25 97.8 89 18 134/63 99 Nasal Cannula 3.00 05/08/17 02:11 97 Nasal Cannula 3.00 05/07/17 21:32 98 Nasal Cannula 3.00 05/07/17 19:50 Nasal Cannula 3.00 05/07/17 18:45 Nasal Cannula 3.00 05/07/17 18:41 97 Nasal Cannula 3.00 05/07/17 18:20 98.6 85 20 135/58 98 Nasal Cannula 3.00 05/07/17 14:29 98 Nasal Cannula 3.00 I & O 05/08/17 07:00 Intake Total 2200 ml Output Total 1900 ml Balance 300 ml General Appearance: No Apparent Distress HEENT: Pale Conjunctivae (L), Pale Conjunctivae (R) Neck: Supple Respiratory: Chest Non Tender, Lungs Clear, Decreased Breath Sounds Cardiovascular: Regular Rate, Rhythm, Systolic Murmur (ii/vi) Gastrointestinal: Normal Bowel Sounds, Non Tender, Soft Rectal: Deferred Back: No CVA Tenderness Extremity: Non Tender, No Calf Tenderness, No Pedal Edema Neurologic/Psychiatric: Alert, Oriented x3 Skin: Pallor Results Lab Laboratory Tests 05/08/17 05:15: White Blood Count 5.2, Red Blood Count 2.55L, Hemoglobin 7.6L, Hematocrit 24L, Mean Corpuscular Volume 93, Mean Corpuscular Hemoglobin 30, Mean Corpuscular Hemoglobin Concent 32, Red Cell Distribution Width 11.2, Platelet Count 339, Mean Platelet Volume 8.9, Neutrophils (%) (Auto) 81H, Lymphocytes (%) (Auto) 10L , Monocytes (%) (Auto) 10, Eosinophils (%) (Auto) 0, Basophils (%) (Auto) 0, Neutrophils # (Auto) 4.2, Lymphocytes # (Auto) 0.5L, Monocytes # (Auto) 0.5, Eosinophils # (Auto) 0.0, Basophils # (Auto) 0.0, Sodium Level 134L, Potassium Level 3.8, Chloride Level 93L, Carbon Dioxide Level 31, Anion Gap 10, Blood Urea Nitrogen 37H, Creatinine 1.23, Estimat Glomerular Filtration Rate 42, BUN/ Creatinine Ratio 30, Glucose Level 126H, Calcium Level 8.2L, Phosphorus Level 3.5, Albumin 2.8L Assessment/Plan Assessment/Plan Assessment/Plan 76 yo F COPD Exacerbation-continue steroids will transition to dexamethasone, continue O2, nebulizers, IS acute on chronic Anemia- hgb decreasing- consider 1 unit of blood Hematuria--urology Dr Del Rosario looking at cystoscope as outpatient in 2 weeks or so acute diastolic CHF-improved- Lasix 20mg PO daily; continue monitoring electrolytes; JOSE M dominguez last ECHO on file was 2014- LVEF 55-60% Weakness due to recent illnesses and hospitalizations- Continue PT and OT hyperkalemia- improved- recheck in AM acute kidney injury- Cr improving- will recheck in AM factor V leiden mutation- heterozygous. Dispo: considering giving a unit or pRBC- this would help with her anemia and possibly her energy level. will obtain repeat hgb in AM and anemia panel. Problems: JEANINE MCCAULEY MD May 08, 2017 13:07
[2017-05-08] MEDS ORDERED: ENOXAPARIN 30 MG/0.3 ML (LOVENOX) SYR SC SCH (13:15)
[2017-05-08 18:12] VITALS: BP 167/69
[2017-05-08] MEDS: ROSUVASTATIN 5 MG (CRESTOR) TABLET PO SCH (21:13)
[2017-05-08] MEDS: hydrOXYzine (ATARAX) 10 MG TAB PO SCH (21:13)
[2017-05-08] MEDS: MIRTAZAPINE 15 MG (REMERON) TAB PO SCH (21:14)
[2017-05-08] MEDS: SENNA W/DOCUSATE (SENOKOT S) TABLET PO PRN (21:26)
[2017-05-09] MEDS: RT-ALBUTEROL SULF 2.5 MG/3 ML PRE-MIX VIAL INH SCH ×6 (02:22→22:28)
[2017-05-09 04:40] LABS: BASOPHILS % (AUTO) 0 % (0-10); EOSINOPHILS % (AUTO) 0 % (0-10); LYMPHOCYTES # (AUTO) 0.4 X 10^3 (1.0-4.0); LYMPHOCYTES % (AUTO) 7 % (12-44); MEAN CORPUSCULAR HEMOGLOBIN 30 PG (25-34); MEAN CORPUSCULAR HGB CONC 33 G/DL (32-36); MEAN CORPUSCULAR VOLUME 93 FL (80-99); MEAN PLATELET VOLUME 9.1 FL (7.4-10.4); MONOCYTES # (AUTO) 0.4 X 10^3 (0.0-1.0); MONOCYTES % (AUTO) 7 % (0-12); NEUTROPHILS # (AUTO) 5.2 X 10^3 (1.8-7.8); NEUTROPHILS % (AUTO) 86 % (42-75); PLATELET COUNT 337 10^3/uL (130-400); RED BLOOD COUNT 2.57 10^6/uL (4.35-5.85); RED CELL DISTRIBUTION WIDTH 11.3 % (10.0-14.5)
[2017-05-09 04:55] LABS: ALBUMIN 2.6 GM/DL (3.2-4.5); CALCIUM 8.5 MG/DL (8.5-10.1); CREATININE SERUM 1.12 MG/DL (0.60-1.30); MAGNESIUM 1.9 MG/DL (1.8-2.4); PHOSPHORUS 3.1 MG/DL (2.3-4.7); POTASSIUM 3.8 MMOL/L (3.6-5.0)
[2017-05-09 05:20] VITALS: BP 128/60
[2017-05-09] MEDS: RT-ADVAIR HFA 115/21 MCG PER PUFF IH SCH ×2 (06:39→18:46)
[2017-05-09] MEDS: UMECLIDINIUM BROMIDE (INCRUSE ELLIPTA) 7'S IH SCH (06:39)
[2017-05-09 08:14] VITALS: BP 200/86
[2017-05-09] MEDS: methylPREDNISolone 40 MG/ML (Solu-MEDROL) VIAL IV SCH (08:23)
[2017-05-09] MEDS: FAMOTIDINE 20MG/2ML IV (PEPCID) IVP SCH (08:23)
[2017-05-09] MEDS: ARTIFICAL TEARS 0.4 ML UNIT DOSE (REFRESH PLUS) OU SCH ×3 (08:24→21:04)
[2017-05-09] MEDS: FUROSEMIDE 20 MG (LASIX) TAB PO SCH (08:24)
[2017-05-09] MEDS: DILTIAZEM 120 MG (CARDIZEM CD) CAP PO SCH (08:24)
[2017-05-09] MEDS: LOSARTAN 50 MG (COZAAR) TAB PO SCH ×2 (08:24→21:08)
[2017-05-09] MEDS: chlordiazePOXIDE 25 MG (LIBRIUM) CAP NON-FORMULARY PO SCH ×2 (08:24→21:03)
[2017-05-09] MEDS: DIGOXIN 62.5 MCG (LANOXIN) TAB PO SCH (08:25)
[2017-05-09] MEDS ORDERED: NS IV 500 ML 500 ML IV SCH (13:33)
[2017-05-09] MEDS ORDERED: diphenhydrAMINE 50 MG/ML INJ (BENADRYL) IVP PRN (13:45)
[2017-05-09 16:10] VITALS: BP 179/62
[2017-05-09] MEDS: fluCOnazole (DIFLUCAN) 100 MG TAB PO SCH (16:29)
[2017-05-09 16:30] VITALS: BP 163/73
[2017-05-09 18:00] VITALS: BP 177/78
[2017-05-09] MEDS: ACETAMINOPHEN 325 MG TABLET/CAPLET (TYLENOL) PO PRN (18:22)
[2017-05-09 18:26] VITALS: BP 189/79
[2017-05-09] MEDS: DEXAMETHASONE 4 MG TAB (DECADRON) PO SCH (21:03)
[2017-05-09] MEDS: MIRTAZAPINE 15 MG (REMERON) TAB PO SCH (21:04)
[2017-05-09] MEDS: hydrOXYzine (ATARAX) 10 MG TAB PO SCH (21:04)
[2017-05-09] MEDS: ROSUVASTATIN 5 MG (CRESTOR) TABLET PO SCH (21:04)
[2017-05-10] MEDS: RT-ALBUTEROL SULF 2.5 MG/3 ML PRE-MIX VIAL INH SCH ×6 (01:20→22:18)
[2017-05-10 06:00] VITALS: BP 135/47
[2017-05-10 06:00] LABS: BASOPHILS % (AUTO) 0 % (0-10); EOSINOPHILS % (AUTO) 0 % (0-10); LYMPHOCYTES # (AUTO) 0.6 X 10^3 (1.0-4.0); LYMPHOCYTES % (AUTO) 7 % (12-44); MEAN CORPUSCULAR HEMOGLOBIN 30 PG (25-34); MEAN CORPUSCULAR HGB CONC 33 G/DL (32-36); MEAN CORPUSCULAR VOLUME 93 FL (80-99); MEAN PLATELET VOLUME 8.9 FL (7.4-10.4); MONOCYTES # (AUTO) 0.8 X 10^3 (0.0-1.0); MONOCYTES % (AUTO) 9 % (0-12); NEUTROPHILS # (AUTO) 7.6 X 10^3 (1.8-7.8); NEUTROPHILS % (AUTO) 84 % (42-75); PLATELET COUNT 334 10^3/uL (130-400); RED BLOOD COUNT 3.25 10^6/uL (4.35-5.85); RED CELL DISTRIBUTION WIDTH 11.9 % (10.0-14.5); WHITE BLOOD COUNT 9.1 10^3/uL (4.3-11.0)
[2017-05-10] MEDS: ACETAMINOPHEN 325 MG TABLET/CAPLET (TYLENOL) PO PRN (06:26)
[2017-05-10 06:36] LABS: CALCIUM 8.7 MG/DL (8.5-10.1); CREATININE SERUM 1.11 MG/DL (0.60-1.30); POTASSIUM 3.9 MMOL/L (3.6-5.0)
[2017-05-10] MEDS: UMECLIDINIUM BROMIDE (INCRUSE ELLIPTA) 7'S IH SCH (06:46)
[2017-05-10] MEDS: RT-ADVAIR HFA 115/21 MCG PER PUFF IH SCH ×2 (06:48→18:52)
[2017-05-10 08:16] LABS: FERRITIN 82.8 ng/mL (15.0-150.0)
--- NOTE | 2017-05-10 08:32 | Progress Note (SOAP) ---
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 SHE HAS PNEUMONIA, HEMATURIA, WEAKNESS, ANEMIA. SHE HAS BEEN SEEN BY DR. LOPEZ FOR HER HEMATURIA, RECEIVED BLOOD ON 05/09/17. Review of Systems General: No Chills, Fatigue, Malaise HEENT: No Head Aches, Ear Pain (ON RIGHT), No Dysphasia Pulmonary: Dyspnea, Cough Cardiovascular: No: Chest Pain, Edema Gastrointestinal: Abdominal Pain, Constipation, No: Nausea Genitourinary: No Dysuria Neurological: Other (DIZZINESS), Weakness, No: Confusion Objective Exam Vital Signs Date Time Temp Pulse Resp B/P (MAP) Pulse Ox O2 Delivery O2 Flow Rate FiO2 05/10/17 08:14 Nasal Cannula 3.00 05/10/17 06:48 96 Nasal Cannula 3.00 05/10/17 06:46 96 Nasal Cannula 3.00 05/10/17 06:38 96 Nasal Cannula 3.00 05/10/17 06:00 96.6 76 18 135/47 99 Nasal Cannula 3.00 05/10/17 01:20 98 Nasal Cannula 3.00 05/09/17 22:28 98 Nasal Cannula 3.00 05/09/17 20:00 98 Nasal Cannula 3.00 05/09/17 18:52 Nasal Cannula 3.00 05/09/17 18:46 97 Nasal Cannula 3.00 05/09/17 18:26 97.3 90 20 189/79 98 Nasal Cannula 3.00 05/09/17 18:00 99.1 87 20 177/78 97 Nasal Cannula 3.00 05/09/17 16:30 97.5 96 20 163/73 96 Nasal Cannula 3.00 05/09/17 16:10 97.7 94 20 179/62 98 Nasal Cannula 3.00 05/09/17 14:30 98 Nasal Cannula 3.00 05/09/17 11:24 98 Nasal Cannula 3.00 I & O 05/10/17 07:00 Intake Total 1080 ml Output Total 1700 ml Balance -620 ml Capillary Refill : General Appearance: No Apparent Distress, Thin HEENT: PERRL/EOMI, TMs Normal Neck: Full Range of Motion, Supple Respiratory: Chest Non Tender, Decreased Breath Sounds, Wheezing (THROUGHOUT) Cardiovascular: Regular Rate, Rhythm Gastrointestinal: normal bowel sounds, non tender, soft, no organomegaly, no pulsatile mass Extremity: Normal Capillary Refill, No Calf Tenderness, No Pedal Edema Neurologic/Psychiatric: Alert, Oriented x3, No Motor/Sensory Deficits, Normal Mood/Affect Skin: Warm/Dry Lymphatic: No Adenopathy Results Lab Laboratory Tests 05/10/17 05:40: White Blood Count 9.1, Red Blood Count 3.25L, Hemoglobin 9.8#L, Hematocrit 30L, Mean Corpuscular Volume 93, Mean Corpuscular Hemoglobin 30, Mean Corpuscular Hemoglobin Concent 33, Red Cell Distribution Width 11.9, Platelet Count 334, Mean Platelet Volume 8.9, Neutrophils (%) (Auto) 84H, Lymphocytes (%) (Auto) 7L , Monocytes (%) (Auto) 9, Eosinophils (%) (Auto) 0, Basophils (%) (Auto) 0, Neutrophils # (Auto) 7.6, Lymphocytes # (Auto) 0.6L, Monocytes # (Auto) 0.8, Eosinophils # (Auto) 0.0, Basophils # (Auto) 0.0, Sodium Level 139, Potassium Level 3.9, Chloride Level 93L, Carbon Dioxide Level 36H, Anion Gap 10, Blood Urea Nitrogen 46H, Creatinine 1.11, Estimat Glomerular Filtration Rate 48, BUN/ Creatinine Ratio 41, Glucose Level 116H, Calcium Level 8.7, Phosphorus Level 3.0 , Albumin 3.0L Assessment/Plan Assessment/Plan Assess & Plan/Chief Complaint PNEUMONIA HEMATURIA ANEMIA FACTOR V LEIDEN COPD WITH ACUTE EXACERBATION ACUTE DIASTOLIC CONGESTIVE HEART FAILURE PNEUMONIA - IMPROVED -PT IS DONE WITH IV ANTIBIOTICS - JUST ON DIFLUCAN AT THIS TIME. HEMATURIA WITH ANEMIA - DR. LOPEZ TO TAKE PATIENT TO CYSTOSCOPY ON 05/12. - PT RECEIVED BLOOD TRANSFUSION YESTERDAY- CHECK LABS TOMORROW. FACTOR V LEIDEN - SUPPORTIVE CARE COPD WITH ACUTE EXACERBATION - PT ON DEXAMETHASONE - CONTINUE WITH STEROID, TAPER ABLE ACUTE DIASTOLIC CONGESTIVE HEART FAILURE - STABLE, MINIMAL EDEMA OF LOWER LEGS, CHANDAN ALEMAN MD May 10, 2017 08:32
--- NOTE | 2017-05-10 08:41 | Progress Note-Urology ---
Progress Note-Urology Progress Notes/Assess & Plan Progress/Assessment & Plan doing and feeling better, cysto under local on wednesday if still here, fully explained to her Final Diagnosis hematuria RUDI LOPEZ MD May 10, 2017 8:40 am
[2017-05-10] MEDS ORDERED: POLYETHYLENE GLYCOL 17 GM (MIRALAX) PACK PO NR (08:45)
[2017-05-10] MEDS: chlordiazePOXIDE 25 MG (LIBRIUM) CAP NON-FORMULARY PO SCH ×2 (08:54→21:25)
[2017-05-10] MEDS: LOSARTAN 50 MG (COZAAR) TAB PO SCH ×2 (08:54→21:27)
[2017-05-10] MEDS: DOCUSATE SODIUM 100 MG (COLACE) CAP PO SCH ×2 (08:55→21:27)
[2017-05-10] MEDS: DIGOXIN 62.5 MCG (LANOXIN) TAB PO SCH (08:56)
[2017-05-10] MEDS: DILTIAZEM 120 MG (CARDIZEM CD) CAP PO SCH (08:56)
[2017-05-10] MEDS: DEXAMETHASONE 4 MG TAB (DECADRON) PO SCH ×2 (08:56→21:25)
[2017-05-10] MEDS: FAMOTIDINE 20MG/2ML IV (PEPCID) IVP SCH (08:57)
[2017-05-10] MEDS: ARTIFICAL TEARS 0.4 ML UNIT DOSE (REFRESH PLUS) OU SCH ×3 (09:08→21:28)
--- NOTE | 2017-05-10 09:12 | Diagnostic Imaging Report ---
EXAMINATION: PA and lateral views of the chest. INDICATION: Pneumonia. COMPARISON: 05/04/2017. FINDINGS: The lungs are hyperinflated. There is right lower lobe infiltrate, similar to 04/13/2017. Left apical scarring is again noted. The heart size is normal. No effusion or pneumothorax. The mediastinum and alicia appear unremarkable. IMPRESSION: Unchanged right lower lobe infiltrate. Left apical scarring. Dictated by: Dictated on workstation # [id number]
--- NOTE | 2017-05-10 10:30 | Occ Therapy Progress Note ---
Therapy Progress Note Attempted to see pt. x 2 this morning. At 0830, pt. at x-ray. Came back at 10: 15. Pt. states that she doesn't want to do anything until she has had her breathing treatment. Spoke with respiratory therapy. They state they will make sure she has her breathing treatment before the next time she is seen. Pt. has already showered. States that she has vertigo. OT encourages her to participate in adaptive equipment training, which might make her safer so that she doesn't have to bend over due to the vertigo. Pt. states that she can do all LE dressing at bed level, and is flexible enough to bring her feet up to her. Will check back on pt. later. 1030 0830 1, visit 1015 1, visit CHARITY JOYCE OT May 10, 2017 10:30
--- NOTE | 2017-05-10 11:25 | Physical Therapy Daily Note ---
PT Daily Note-Current Subjective Patient c/o dizziness. Agrees to PT. Pain Numeric Pain Scale: 0-No Pain Location: No Pain Reported Mental Status Patient Orientation: Normal For Age Attachments: Oxygen Transfers Functional [place] Measure 0=Not Assessed/NA 4=Minimal Assistance 1=Total Assistance 5=Supervision or Setup 2=Maximal Assistance 6=Modified [place] 3=Moderate Assistance 7=Complete IndependenceIRFPAI Quality Coding Scale 6 Independent with activity with or without an assistive device 5 Patient requires set up or clean up by helper. Patient completes activity by themselves 4 Supervision or touching assist (CGA). [place] provide cues , steadying assist 3 The helper provides less than half the effort to complete the activity 2 The helper provides more than half the effort to complete the activity 1 Dependent. The helper does all the effort to complete an activity 7 Patient refused to complete or attempt activity 9 The patient did not perform the activity before the current illness or injury 88 Not attempted due to Medical conditions or safety concerns Transfers (B, C, W/C) (FIM): 6 Scootin Roll Left to Right (QC): 5 Supine to/from Sit: 6 Sit to/from Stand: 6 Sit to Lying (QC): 5 Sit to Stand (QC): 5 Chair/Irb-af-Ruaci Xfer(QC): 5 Gait Training Does the Patient Walk?: Yes Gait (FIM): 5 Distance (FIM): 3=150 ft Distance: 350' Walk 50 ft with 2 Turns(QC): 5 Walk 150 ft (QC): 5 Gait Level of Assist: 5 Gait Assistive Device: FWW 1 episode LOB with self correction safe and functional gait sequence with FWW Balance Special Test Comments Vestibular exercises performed with focus on a dot on the white board and turn head side to side and up and down 10 reps each x 2 sets with patient c/o nausea with all. Assessment Patient tolerated vestibular exercises, however, c/o mild nausea. Patient instructed to perform exercises x 5 sets/day to improve vestibular function. PT Supervisor Asbestos Removal Goals Senior Care Goals PT Senior Care Goals Time Frame: May 10, 2017 Transfers (B,C,W/C) (FIM): 5 Sit to Lying (QC): 6 Lying-Sitting on Side/Bed(QC): 6 Sit to Stand (QC): 5 Rollin Gait (FIM): 5 Distance: 150' Walk 50ft with 2 Turns (QC): 4 Walk 150 ft (QC): 4 Gait Level of Assist: 5 Gait Assistive Device: FWW PT Plan Treatment/Plan Treatment Plan: Continue Plan of Care, Modify Plan, see comments (PT to continue with POC to 05/14/17) Treatment Plan: Bed Mobility, Education, Functional Activity [place], Functional Strength, Gait, Safety, Therapeutic Exercise, Transfers Treatment Duration: May 10, 2017 Visits Per Week: 5-6 Minutes/Day (M-F): 15-30 Minutes/Day (Sat/[place]): 15-30 Safety Risks/Education Patient Education: Safety Issues Teaching Recipient: Patient Teaching Methods: Demonstration, Discussion Response to Teaching: Return Demonstration Time/GCodes Time In: 1108 Time Out: 1123 Total Billed Treatment Time: 15 Total Billed Treatment 1 visit FA 15 min JANI WASSERMAN PT May 10, 2017 11:25
--- NOTE | 2017-05-10 13:52 | Occupational Ther Daily Note ---
OT Current Status-Daily Note Subjective Pt. agrees to work with OT. States that she still has vertigo. Appearance Pt. asleep. Wakes up. Requests to use the bathroom. Mental Status/Objective Patient Orientation: Person, Place Functional [place] Measure 0=Not Assessed/NA 4=Minimal Assistance 1=Total Assistance 5=Supervision or Setup 2=Maximal Assistance 6=Modified [place] 3=Moderate Assistance 7=Complete [place] Attachments: Oxygen ADL-Treatment Functional [place] Measure 0=Not Assessed/NA 4=Minimal Assistance 1=Total Assistance 5=Supervision or Setup 2=Maximal Assistance 6=Modified [place] 3=Moderate Assistance 7=Complete IndependenceIRFPAI Quality Coding Scale 6 Independent with activity with or without an assistive device 5 Patient requires set up or clean up by helper. Patient completes activity by themselves 4 Supervision or touching assist (CGA). [place] provide cues , steadying assist 3 The helper provides less than half the effort to complete the activity 2 The helper provides more than half the effort to complete the activity 1 Dependent. The helper does all the effort to complete an activity 7 Patient refused to complete or attempt activity 9 The patient did not perform the activity before the current illness or injury 88 Not attempted due to Medical conditions or safety concerns Toileting (FIM): 6 Toileting Hygiene (QC): 6 Transfers (B, C, W/C) (FIM): 5 (Pt. is Mod I with walker. However, due to reporting vertigo, this OT provided SBA.) Toilet/Commode Transfer (FIM): 6 Toilet Transfer (QC): 6 Other Treatment Pt. able to toilet self with Mod I. Ambulated in hallway, approximately 200 feet with 3 L 02 on. Required increased time. Declined all other activity. Respiratory therapist in room and providing breathing treatment after activity. Education OT Patient Education: Correct positioning, Modified ADL techniques, Progress toward Goal/Update tx plan, Purpose of tx/functional activities, Reviewed precautions, Rehab process, Transfer techniques Teaching Recipient: Patient Teaching Methods: Demonstration, Discussion Response to Teaching: Verbalize Understanding, Return Demonstration OT Short Term Goals Short Term Goals 1=Demonstrate adherence to instructed precautions during ADL tasks. 2=Patient will verbalize/demonstrate understanding of assistive devices/ modifications for ADL. 3=Patient will improve strength/tolerance for activity to enable patient to perform ADL's. OT Prison Goals Prison Goals Time Frame: May 17, 2017 Eating (FIM): 6 Eating (QC): 6 Groomin Oral Hygiene (QC): 6 Bathing(FIM): 6 Upper Body Dressing(FIM): 6 Lower Body Dressing(FIM): 6 Toileting(FIM): 6 Toileting Hygiene (QC): 6 Toilet/Commode Transfer(FIM): 6 Toilet/Commode Transfer (QC): 6 Shower Transfer(FIM): 5 Additional Goals: 1-Demonstrate ADL Tasks, 2-Verbalize Understanding, 3- ImproveStrength/[place] 1=Demonstrate adherence to instructed precautions during ADL tasks. 2=Patient will verbalize/demonstrate understanding of assistive devices/ modifications for ADL. 3=Patient will improve strength/tolerance for activity to enable patient to perform ADL's. OT Education/Plan Problem List/Assessment Assessment: Decreased Activ Tolerance, Decreased UE Strength, Impaired Funct Balance (per pt. due to vertigo.), Impaired I ADL's, Impaired Self-Care Skills Pt to benefit from skilled OT intervention for ADL training, transfers, strengthening, and home safety education to maximize level of function and allow safe discharge plan. Discharge Recommendations Plan/Recommendations: Continue POC Therapy D/C Recommendations: Assisted Living, Occupational Therapy Home Care Treatment Plan/Plan of Care Treatment,Training & Education: Yes Patient would benefit from OT for education, treatment and training to promote independence in ADL's, mobility, safety and/or upper extremity function for ADL' s. Plan of Care: ADL Retraining, Functional Mobility, UE Funct Exercise/Act Treatment Duration: May 17, 2017 Visits Per Week: 5 Agreement: Yes Rehab Potential: Fair Time/GCodes Start Time: 13:30 Stop Time: 13:45 Total Time Billed (hr/min): 15 Billed Treatment Time 1, CHARITY FINN OT May 10, 2017 13:52
[2017-05-10] MEDS: fluCOnazole (DIFLUCAN) 100 MG TAB PO SCH (16:57)
[2017-05-10 18:19] VITALS: BP 178/70
[2017-05-10] MEDS: hydrOXYzine (ATARAX) 10 MG TAB PO SCH (21:26)
[2017-05-10] MEDS: POLYETHYLENE GLYCOL 17 GM (MIRALAX) PACK PO SCH (21:26)
[2017-05-10] MEDS: ROSUVASTATIN 5 MG (CRESTOR) TABLET PO SCH (21:28)
[2017-05-10] MEDS: MIRTAZAPINE 15 MG (REMERON) TAB PO SCH (21:28)
[2017-05-11] MEDS: RT-ALBUTEROL SULF 2.5 MG/3 ML PRE-MIX VIAL INH SCH ×6 (02:31→22:25)
[2017-05-11 04:28] LABS: MEAN PLATELET VOLUME 8.8 FL (7.4-10.4); RED BLOOD COUNT 3.04 10^6/uL (4.35-5.85); RED CELL DISTRIBUTION WIDTH 11.7 % (10.0-14.5); WHITE BLOOD COUNT 7.8 10^3/uL (4.3-11.0)
[2017-05-11 04:48] LABS: ALBUMIN 2.7 GM/DL (3.2-4.5); BILIRUBIN,TOTAL 0.4 MG/DL (0.1-1.0); CALCIUM 8.6 MG/DL (8.5-10.1); CREATININE SERUM 0.91 MG/DL (0.60-1.30); POTASSIUM 4.3 MMOL/L (3.6-5.0); TOTAL PROTEIN 4.9 GM/DL (6.4-8.2)
[2017-05-11 05:37] VITALS: BP 144/58
[2017-05-11] MEDS: RT-ADVAIR HFA 115/21 MCG PER PUFF IH SCH ×2 (06:50→18:31)
[2017-05-11] MEDS: UMECLIDINIUM BROMIDE (INCRUSE ELLIPTA) 7'S IH SCH (06:50)
--- NOTE | 2017-05-11 08:39 | Physical Therapy Daily Note ---
PT Daily Note-Current Subjective States that she is doing okay but she is still not walking straight. Pain Numeric Pain Scale: 0-No Pain Transfers Functional [place] Measure 0=Not Assessed/NA 4=Minimal Assistance 1=Total Assistance 5=Supervision or Setup 2=Maximal Assistance 6=Modified [place] 3=Moderate Assistance 7=Complete IndependenceIRFPAI Quality Coding Scale 6 Independent with activity with or without an assistive device 5 Patient requires set up or clean up by helper. Patient completes activity by themselves 4 Supervision or touching assist (CGA). [place] provide cues , steadying assist 3 The helper provides less than half the effort to complete the activity 2 The helper provides more than half the effort to complete the activity 1 Dependent. The helper does all the effort to complete an activity 7 Patient refused to complete or attempt activity 9 The patient did not perform the activity before the current illness or injury 88 Not attempted due to Medical conditions or safety concerns Transfers (B, C, W/C) (FIM): 5 Sit to/from Stand: 5 Bed to/from Chair: 5 Gait Training Gait (FIM): 5 Distance (FIM): 3=150 ft Distance: 350' Gait Level of Assist: 5 Gait Persons Needed: 1 Gait Assistive Device: FWW Assessment Current Status: Good Progress The patient's gait speed was slower today and had some increased SOB. PT [facility] Goals Records Section Supervisor Goals PT Records Section Supervisor Goals Time Frame: May 10, 2017 Transfers (B,C,W/C) (FIM): 5 Sit to Lying (QC): 6 Lying-Sitting on Side/Bed(QC): 6 Sit to Stand (QC): 5 Rollin Gait (FIM): 5 Distance: 150' Walk 50ft with 2 Turns (QC): 4 Walk 150 ft (QC): 4 Gait Level of Assist: 5 Gait Assistive Device: FWW PT Plan Treatment/Plan Treatment Plan: Continue Plan of Care Treatment Plan: Bed Mobility, Education, Functional Activity [place], Functional Strength, Gait, Safety, Therapeutic Exercise, Transfers Treatment Duration: May 10, 2017 Visits Per Week: 5-6 Minutes/Day (M-F): 15-30 Minutes/Day (Sat/[place]): 15-30 Time/GCodes Time In: 0820 Time Out: 0835 Total Billed Treatment Time: 15 Total Billed Treatment 1, GT x 15 STANISLAW FRANK PT May 11, 2017 08:39
--- NOTE | 2017-05-11 09:10 | Progress Note (SOAP) ---
Subjective Date Seen by Provider: May 11, 2017 Time Seen by Provider: 09:20 Subjective/Events-last exam PT REPORTS THAT SHE IS FEELING BETTER, BUT DID NOT HAVE A BOWEL MOVEMENT YESTERDAY EXPECTED AFTER STOOL SOFTENING MEDICATION. SHE REPORTS THAT IN THE PAST SENNA HAS HELPED HER TO HAVE BOWEL MOVEMENTS. Review of Systems General: No Chills, Fatigue HEENT: No Head Aches Pulmonary: Dyspnea, No Cough Cardiovascular: No: Chest Pain Gastrointestinal: Constipation, No: Abdominal Pain Genitourinary: Hematuria Neurological: Weakness, No: Confusion Objective Exam Vital Signs Date Time Temp Pulse Resp B/P (MAP) Pulse Ox O2 Delivery O2 Flow Rate FiO2 05/11/17 06:52 98 Nasal Cannula 3.00 05/11/17 06:51 98 Nasal Cannula 3.00 05/11/17 06:51 98 Nasal Cannula 3.00 05/11/17 05:37 96.8 76 22 144/58 98 Nasal Cannula 3.00 05/11/17 02:32 98 Nasal Cannula 3.00 05/10/17 22:18 98 Nasal Cannula 3.00 05/10/17 20:00 Room Air 05/10/17 18:52 98 Nasal Cannula 3.00 05/10/17 18:19 97.0 84 20 178/70 95 Nasal Cannula 3.00 05/10/17 17:03 95 Nasal Cannula 3.00 05/10/17 13:40 98 Nasal Cannula 3.00 05/10/17 10:26 99 Nasal Cannula 3.00 I & O 05/11/17 07:00 Intake Total 1935 ml Output Total 2000 ml Balance -65 ml Capillary Refill : General Appearance: No Apparent Distress, WD/WN HEENT: PERRL/EOMI, Pharynx Normal Neck: Full Range of Motion, Supple Respiratory: Chest Non Tender, Lungs Clear, Normal Breath Sounds Cardiovascular: Regular Rate, Rhythm Gastrointestinal: normal bowel sounds, non tender, soft Extremity: Normal Capillary Refill, No Pedal Edema Neurologic/Psychiatric: Alert, Oriented x3, No Motor/Sensory Deficits, Normal Mood/Affect Skin: Warm/Dry Lymphatic: No Adenopathy Results Lab Laboratory Tests 05/10/17 17:01: Lab Scanned Report Transfusion Reaction Form 05/11/17 04:19: White Blood Count 7.8, Red Blood Count 3.04L, Hemoglobin 9.2L, Hematocrit 28L, Mean Corpuscular Volume 93, Mean Corpuscular Hemoglobin 30, Mean Corpuscular Hemoglobin Concent 33, Red Cell Distribution Width 11.7, Platelet Count 307, Mean Platelet Volume 8.8, Sodium Level 136, Potassium Level 4.3, Chloride Level 92L, Carbon Dioxide Level 38H, Anion Gap 6, Blood Urea Nitrogen 35H, Creatinine 0.91, Estimat Glomerular Filtration Rate 60, BUN/Creatinine Ratio 38, Glucose Level 129H, Calcium Level 8.6, Total Bilirubin 0.4, Aspartate Amino Transf (AST/ SGOT) 24, Alanine Aminotransferase (ALT/SGPT) 25, Alkaline Phosphatase 42, Total Protein 4.9L, Albumin 2.7L Assessment/Plan Assessment/Plan Assess & Plan/Chief Complaint PNEUMONIA HEMATURIA ANEMIA FACTOR V LEIDEN COPD WITH ACUTE EXACERBATION ACUTE DIASTOLIC CONGESTIVE HEART FAILURE PNEUMONIA - IMPROVED -PT IS DONE WITH IV ANTIBIOTICS - JUST ON DIFLUCAN AT THIS TIME. HEMATURIA WITH ANEMIA - DR. LOPEZ TO TAKE PATIENT TO CYSTOSCOPY ON 05/12. - PT RECEIVED BLOOD TRANSFUSION WEDNESDAY- STABLE, CHECK LABS TOMORROW. FACTOR V LEIDEN - SUPPORTIVE CARE. COPD WITH ACUTE EXACERBATION - PT ON DEXAMETHASONE - CONTINUE WITH STEROID, TAPER ABLE. ACUTE DIASTOLIC CONGESTIVE HEART FAILURE - STABLE, MINIMAL EDEMA OF LOWER LEGS. CONSTIPATION - CHRONIC - SENNA S BID, MIRALAX AT HS, AND DULCOLAX TODAY - IF NO BOWEL MOVEMENT THEN SHE WILL HAVE SOAP SUDS ENEMA AT 130PM CHANDAN ALEMAN MD May 11, 2017 09:10
[2017-05-11] MEDS: chlordiazePOXIDE 25 MG (LIBRIUM) CAP NON-FORMULARY PO SCH ×2 (10:03→20:32)
[2017-05-11] MEDS: ARTIFICAL TEARS 0.4 ML UNIT DOSE (REFRESH PLUS) OU SCH ×3 (10:03→20:33)
[2017-05-11] MEDS: LOSARTAN 50 MG (COZAAR) TAB PO SCH ×2 (10:04→20:33)
[2017-05-11] MEDS: DOCUSATE SODIUM 100 MG (COLACE) CAP PO SCH ×2 (10:05→20:34)
[2017-05-11] MEDS: FUROSEMIDE 20 MG (LASIX) TAB PO SCH (10:05)
[2017-05-11] MEDS: DEXAMETHASONE 4 MG TAB (DECADRON) PO SCH ×2 (10:06→20:35)
[2017-05-11] MEDS: FAMOTIDINE 20 MG (PEPCID) TABLET PO SCH (10:06)
[2017-05-11] MEDS: DIGOXIN 62.5 MCG (LANOXIN) TAB PO SCH (10:07)
[2017-05-11] MEDS: DILTIAZEM 120 MG (CARDIZEM CD) CAP PO SCH (10:11)
[2017-05-11] MEDS ORDERED: BISACODYL 10 MG SUPP (DULCOLAX) PR NR ×2 (10:15→14:14)
[2017-05-11] MEDS: SENNA W/DOCUSATE (SENOKOT S) TABLET PO SCH ×2 (11:20→20:34)
--- NOTE | 2017-05-11 11:48 | Occ Therapy Progress Note ---
Therapy Progress Note Attempted OT treatment at 1135. Pt in bed. Pt declined all treatment at this time, states she just had a suppository and is waiting for it to work. Pt declined to participate in bed level activity, states she just wants to rest until she is able to have a bowel movement. Pt denied other needs at this time. Will attempt treatment 05/12/17, pt in agreement. 1, visit JARAD MARINO OT May 11, 2017 11:48
[2017-05-11] MEDS: fluCOnazole (DIFLUCAN) 100 MG TAB PO SCH (16:52)
[2017-05-11 17:53] VITALS: BP 168/68
[2017-05-11] MEDS: hydrOXYzine (ATARAX) 10 MG TAB PO SCH (20:34)
[2017-05-11] MEDS: ROSUVASTATIN 5 MG (CRESTOR) TABLET PO SCH (20:34)
[2017-05-11] MEDS: POLYETHYLENE GLYCOL 17 GM (MIRALAX) PACK PO SCH (20:35)
[2017-05-11] MEDS: MIRTAZAPINE 15 MG (REMERON) TAB PO SCH (20:35)
[2017-05-12] MEDS: RT-ALBUTEROL SULF 2.5 MG/3 ML PRE-MIX VIAL INH SCH ×6 (02:19→22:50)
[2017-05-12 05:04] LABS: MEAN PLATELET VOLUME 9.2 FL (7.4-10.4); RED BLOOD COUNT 3.15 10^6/uL (4.35-5.85); RED CELL DISTRIBUTION WIDTH 11.6 % (10.0-14.5); WHITE BLOOD COUNT 8.9 10^3/uL (4.3-11.0)
[2017-05-12 05:05] VITALS: BP 158/78
[2017-05-12 05:21] LABS: CALCIUM 8.6 MG/DL (8.5-10.1); CREATININE SERUM 0.96 MG/DL (0.60-1.30)
[2017-05-12] MEDS: RT-ADVAIR HFA 115/21 MCG PER PUFF IH SCH ×2 (07:00→18:12)
[2017-05-12] MEDS: UMECLIDINIUM BROMIDE (INCRUSE ELLIPTA) 7'S IH SCH (07:05)
--- NOTE | 2017-05-12 08:29 | Progress Note-Pre Operative ---
Pre-Operative Progress Note H&P Reviewed The H&P was reviewed, patient examined and no changes noted. Date Seen by Provider: May 12, 2017 Time Seen by Provider: 08: Date H&P Reviewed: May 12, 2017 Time H&P Reviewed: : Pre-Operative Diagnosis: Hematuria RUDI LOPEZ MD May 12, 2017 8:29 am
[2017-05-12] MEDS ORDERED: LIDOCAINE JELLY 2% (XYLOCAINE) 5 ML TUBE ONE (08:47)
--- NOTE | 2017-05-12 09:13 | Progress Note-Post Operative ---
Post-Operative Progess Note Surgeon (s)/Duplicating Machine Operator (s) Surgeon RUDI LOPEZ MD Duplicating Machine Operator: N/A Pre-Operative Diagnosis Hematuria Post-Operative Diagnosis SAME Procedure & Operative Findings Date of Procedure 05/12/17 Procedure Performed/Findings CYSTO, UD.NEGATIVE Anesthesia Type LOCAL Estimated Blood Loss Estimated blood loss (mL): N/A Specimens/Packing Specimens Removed N/A Packing: N/A RUDI LOPEZ MD May 12, 2017 9:13 am
--- NOTE | 2017-05-12 09:34 | Progress Note (SOAP) ---
Subjective Date Seen by Provider: May 12, 2017 Time Seen by Provider: 08:00 Subjective/Events-last exam PT REPORTS THAT SHE IS FEELING QUITE FATIGUED. SHE REPORTS THAT SHE HAD ABDOMINAL DISCOMFORT, WITH SOME CRAMPING OF HER ABDOMEN. Review of Systems General: Fatigue, Malaise HEENT: No Head Aches Pulmonary: No Dyspnea, No Cough Cardiovascular: No: Chest Pain, Palpitations Gastrointestinal: Abdominal Pain, No: Nausea Neurological: Weakness, No: Confusion Objective Exam Vital Signs Date Time Temp Pulse Resp B/P (MAP) Pulse Ox O2 Delivery O2 Flow Rate FiO2 05/12/17 07:05 Nasal Cannula 3.00 05/12/17 07:00 Nasal Cannula 3.00 05/12/17 07:00 97 Nasal Cannula 3.00 05/12/17 05:05 98.0 76 20 158/78 98 Nasal Cannula 3.00 05/12/17 02:21 98 Nasal Cannula 3.00 05/11/17 23:35 Nasal Cannula 3.00 05/11/17 22:26 98 Nasal Cannula 3.00 05/11/17 20:00 Nasal Cannula 3.00 05/11/17 18:33 Nasal Cannula 3.00 05/11/17 18:31 99 Nasal Cannula 3.00 05/11/17 17:53 98.0 71 20 168/68 100 Nasal Cannula 3.00 05/11/17 14:17 97 Nasal Cannula 3.00 05/11/17 10:27 98 Nasal Cannula 3.00 I & O 05/12/17 07:00 Intake Total 2100 ml Output Total 2100 ml Balance 0 ml Capillary Refill : General Appearance: No Apparent Distress, WD/WN HEENT: PERRL/EOMI, Pharynx Normal Neck: Full Range of Motion, Supple Respiratory: Chest Non Tender, Decreased Breath Sounds Cardiovascular: Regular Rate, Rhythm Gastrointestinal: normal bowel sounds, non tender, soft Extremity: Normal Capillary Refill, No Pedal Edema Neurologic/Psychiatric: Alert, Oriented x3, No Motor/Sensory Deficits, Normal Mood/Affect Skin: Warm/Dry Lymphatic: No Adenopathy Results Lab Laboratory Tests 05/12/17 04:29: White Blood Count 8.9, Red Blood Count 3.15L, Hemoglobin 9.5L, Hematocrit 29L, Mean Corpuscular Volume 93, Mean Corpuscular Hemoglobin 30, Mean Corpuscular Hemoglobin Concent 32, Red Cell Distribution Width 11.6, Platelet Count 305, Mean Platelet Volume 9.2, Sodium Level 137, Potassium Level 4.0, Chloride Level 92L, Carbon Dioxide Level 37H, Anion Gap 8, Blood Urea Nitrogen 37H, Creatinine 0.96, Estimat Glomerular Filtration Rate 56, BUN/Creatinine Ratio 39, Glucose Level 114H, Calcium Level 8.6 Assessment/Plan Assessment/Plan Assess & Plan/Chief Complaint PNEUMONIA HEMATURIA ANEMIA FACTOR V LEIDEN COPD WITH ACUTE EXACERBATION ACUTE DIASTOLIC CONGESTIVE HEART FAILURE PNEUMONIA - IMPROVED -PT IS DONE WITH IV ANTIBIOTICS - JUST ON DIFLUCAN AT THIS TIME. HEMATURIA WITH ANEMIA - DR. LOPEZ TO TAKE PATIENT TO CYSTOSCOPY TODAY - IT WAS NEGATIVE PER HIS REPORT FACTOR V LEIDEN - SUPPORTIVE CARE. COPD WITH ACUTE EXACERBATION - PT ON DEXAMETHASONE - CONTINUE WITH STEROID, TAPER ABLE. ACUTE DIASTOLIC CONGESTIVE HEART FAILURE - STABLE, MINIMAL EDEMA OF LOWER LEGS. CONSTIPATION - CHRONIC - IMPROVED AFTER TREATMENT YESTERDAY - PT IS NOT YET STRONG ENOUGH TO GO HOME AT THIS TIME - RECOMMENDED PATIENT TO HAVE IRF EVALUATION, IF SHE DOES NOT QUALIFY SHE WILL BE SENT TO HALFWAY FOR THERAPY CHANDAN ALEMAN MD May 12, 2017 09:34
[2017-05-12] MEDS ORDERED: MECLIZINE 25 MG (ANTIVERT) TAB PO PRN (09:45)
[2017-05-12] MEDS ORDERED: MECLIZINE 25 MG (ANTIVERT) TAB PO NR (10:09)
[2017-05-12] MEDS: LOSARTAN 50 MG (COZAAR) TAB PO SCH ×2 (10:10→20:19)
[2017-05-12] MEDS: DOCUSATE SODIUM 100 MG (COLACE) CAP PO SCH ×2 (10:10→20:19)
[2017-05-12] MEDS: DEXAMETHASONE 4 MG TAB (DECADRON) PO SCH ×2 (10:10→20:19)
[2017-05-12] MEDS: ARTIFICAL TEARS 0.4 ML UNIT DOSE (REFRESH PLUS) OU SCH ×3 (10:10→20:19)
[2017-05-12] MEDS: FAMOTIDINE 20 MG (PEPCID) TABLET PO SCH (10:11)
[2017-05-12] MEDS: ONDANSETRON 4 MG/2 ML (SDV) Z0FRAN IVP PRN (10:11)
[2017-05-12] MEDS: DILTIAZEM 120 MG (CARDIZEM CD) CAP PO SCH (10:12)
[2017-05-12] MEDS: SENNA W/DOCUSATE (SENOKOT S) TABLET PO SCH ×2 (10:19→20:19)
[2017-05-12] MEDS: DIGOXIN 62.5 MCG (LANOXIN) TAB PO SCH (10:20)
[2017-05-12] MEDS: chlordiazePOXIDE 25 MG (LIBRIUM) CAP NON-FORMULARY PO SCH ×2 (10:24→20:26)
--- NOTE | 2017-05-12 12:25 | OPERATIVE REPORT ---
PROCEDURE PHYSICIAN: RUDI LOPEZ DATE OF PROCEDURE: 05/12/2017 PREOPERATIVE DIAGNOSIS: Hematuria. POSTOPERATIVE DIAGNOSES: Hematuria. OPERATION: Cystoscopy, urethral dilatation. SURGEON: Dr. Lopez. ANESTHESIA: Local. COMPLICATIONS: None. PROCEDURE: The patient was put in lithotomy position, the genitalia were prepped and draped in usual sterile fashion. The urethra was infiltrated with lidocaine jelly and gauze was applied. This was then removed and cystoscopy was performed with both lenses. There were completely negative. No cystitis, carcinoma in situ, or bladder tumor. Ureteric orifice is normal with clear effluxes. Mild trabeculation of the bladder. The cystoscope was removed and ____ (s/l passage of a scope was sound) 24-[place]zerbaijani easily. No need for further dilatation. The patient tolerated the procedure and anesthesia well and was sent to recovery room in stable condition. PLAN: We will see her on a p.r.n. basis. I told her if she develops gross hematuria to contact my office otherwise follow up with Dr. Paz. Job ID: [id number] Dictated Date: 05/12/2017 09:15:32 Media Clerk Date: 05/12/2017 12:17:37 / renetta
--- NOTE | 2017-05-12 12:32 | Physical Therapy Daily Note ---
PT Daily Note-Current Subjective Pt is sitting at EOB upon arrival. Pt declines ambulation since pt reportedly just walked with OT staff. Pt reports not being ready to go home although is ready to leave here. Pt agrees to Seated Ex at EOB. Pain Location: No Pain Reported Mental Status Patient Orientation: Person, Place, Situation Attachments: Oxygen Transfers Functional [place] Measure 0=Not Assessed/NA 4=Minimal Assistance 1=Total Assistance 5=Supervision or Setup 2=Maximal Assistance 6=Modified [place] 3=Moderate Assistance 7=Complete IndependenceIRFPAI Quality Coding Scale 6 Independent with activity with or without an assistive device 5 Patient requires set up or clean up by helper. Patient completes activity by themselves 4 Supervision or touching assist (CGA). [place] provide cues , steadying assist 3 The helper provides less than half the effort to complete the activity 2 The helper provides more than half the effort to complete the activity 1 Dependent. The helper does all the effort to complete an activity 7 Patient refused to complete or attempt activity 9 The patient did not perform the activity before the current illness or injury 88 Not attempted due to Medical conditions or safety concerns Scootin Exercises Seated Therapy Exercises: Ankle pumps, Long arc quads, Hip flexion Seated Reps: 15 Treatments Pt scoots farther on EOB so feet can reach floor for Seated Ex. Pt's lunch arrives so pt discontinues Seated Ex. Pt has questions about discharging. PT advised that Therapy didn't feel that pt going to ARU was appropriate so continue to discuss other options (SNF, home w/HH & HT). PT also talked with Timber Treatment Plant Operator to advise of conversation with pt. Pt rests at EOB to eat lunch with all needs met at end of tx. Assessment Current Status: Fair Progress Pt reports feeling fatigued and didn't want to walk again then reports knowing that she needs to walk to get better. Pt wants to get better but isn't sure how. Pt and PT discussed need for continued Therapy. PT Supervisor Plastics Goals Senior Care Goals PT Senior Care Goals Time Frame: May 10, 2017 Transfers (B,C,W/C) (FIM): 5 Sit to Lying (QC): 6 Lying-Sitting on Side/Bed(QC): 6 Sit to Stand (QC): 5 Rollin Gait (FIM): 5 Distance: 150' Walk 50ft with 2 Turns (QC): 4 Walk 150 ft (QC): 4 Gait Level of Assist: 5 Gait Assistive Device: FWW PT Plan Problem List Problem List: Activity Tolerance, Functional Strength, Safety, Balance, Gait, Transfer Treatment/Plan Treatment Plan: Continue Plan of Care Treatment Plan: Bed Mobility, Education, Functional Activity [place], Functional Strength, Gait, Safety, Therapeutic Exercise, Transfers Treatment Duration: May 10, 2017 Visits Per Week: 5-6 Minutes/Day (M-F): 15-30 Minutes/Day (Sat/[place]): 15-30 Safety Risks/Education Patient Education: Correct Positioning, Safety Issues Teaching Recipient: Patient Teaching Methods: Discussion Response to Teaching: Verbalize Understanding Time/GCodes Time In: 1130 Time Out: 1145 Total Billed Treatment Time: 15 Total Billed Treatment visit, FA (15m) NING CHANG PTA May 12, 2017 12:32
--- NOTE | 2017-05-12 13:17 | Occupational Ther Daily Note ---
OT Current Status-Daily Note Subjective "I have gas pains, I don't feel like doing anything." Appearance Pt. in bathroom on her own when OT enters room. Pt. attempts to refuse therapy this date. With encouragement, agrees to work with OT. Mental Status/Objective Patient Orientation: Unable to Assess Functional [place] Measure 0=Not Assessed/NA 4=Minimal Assistance 1=Total Assistance 5=Supervision or Setup 2=Maximal Assistance 6=Modified [place] 3=Moderate Assistance 7=Complete [place] ADL-Treatment Functional [place] Measure 0=Not Assessed/NA 4=Minimal Assistance 1=Total Assistance 5=Supervision or Setup 2=Maximal Assistance 6=Modified [place] 3=Moderate Assistance 7=Complete IndependenceIRFPAI Quality Coding Scale 6 Independent with activity with or without an assistive device 5 Patient requires set up or clean up by helper. Patient completes activity by themselves 4 Supervision or touching assist (CGA). [place] provide cues , steadying assist 3 The helper provides less than half the effort to complete the activity 2 The helper provides more than half the effort to complete the activity 1 Dependent. The helper does all the effort to complete an activity 7 Patient refused to complete or attempt activity 9 The patient did not perform the activity before the current illness or injury 88 Not attempted due to Medical conditions or safety concerns Toileting Hygiene (QC): 6 Transfers (B, C, W/C) (FIM): 6 (See note below) Toilet/Commode Transfer (FIM): 6 Toilet Transfer (QC): 6 Other Treatment Pt. in bathroom. OT encourages her to shower. Pt. adamant that she does not want to. States that she has already spongebathed this morning. OT encourages her to walk to help with gas pains. Pt. is able to demonstrate mod I with walker, but states that she is having "equilibrium" problems. States that she isn't "dizzy," but that she is having trouble staying upright. No LOB noted during ambulation. Pt. ambulated approximately 250 feet in [place] with walker. Pt. somewhat resistive to therapy. States that she wants to get stronger, but does not seem to understand importance of strength training, or participating. Requires constant encouragement to work with therapy. Pt. states that she does not feel ready to go home. OT brought up LONG-TERM to her. Spoke with swing bed coordinator regarding pt's options. Will continue to encourage pt. to increase overall strength and endurance. Education OT Patient Education: Energy conservation, Exercise program, Progress toward Goal/Update tx plan, Purpose of tx/functional activities, Reviewed precautions, Rehab process, Transfer techniques Teaching Recipient: Patient Teaching Methods: Demonstration, Discussion Response to Teaching: Verbalize Understanding, Return Demonstration OT Short Term Goals Short Term Goals 1=Demonstrate adherence to instructed precautions during ADL tasks. 2=Patient will verbalize/demonstrate understanding of assistive devices/ modifications for ADL. 3=Patient will improve strength/tolerance for activity to enable patient to perform ADL's. OT Correction Goals Director Construction Services Goals Time Frame: May 17, 2017 Eating (FIM): 6 Eating (QC): 6 Groomin Oral Hygiene (QC): 6 Bathing(FIM): 6 Upper Body Dressing(FIM): 6 Lower Body Dressing(FIM): 6 Toileting(FIM): 6 Toileting Hygiene (QC): 6 Toilet/Commode Transfer(FIM): 6 Toilet/Commode Transfer (QC): 6 Shower Transfer(FIM): 5 Additional Goals: 1-Demonstrate ADL Tasks, 2-Verbalize Understanding, 3- ImproveStrength/[place] 1=Demonstrate adherence to instructed precautions during ADL tasks. 2=Patient will verbalize/demonstrate understanding of assistive devices/ modifications for ADL. 3=Patient will improve strength/tolerance for activity to enable patient to perform ADL's. OT Education/Plan Problem List/Assessment Assessment: Decreased Activ Tolerance, Impaired I ADL's Pt to benefit from skilled OT intervention for ADL training, transfers, strengthening, and home safety education to maximize level of function and allow safe discharge plan. Discharge Recommendations Plan/Recommendations: Continue POC Therapy D/C Recommendations: Assisted Living Barriers to Progress Pt. is somewhat self limiting. Target Placement Pt. would benefit from assisted living. To continue with strengthening, pt. may benefit from skilled stay first, and then to assisted living facility. Treatment Plan/Plan of Care Treatment,Training & Education: Yes Patient would benefit from OT for education, treatment and training to promote independence in ADL's, mobility, safety and/or upper extremity function for ADL' s. Plan of Care: ADL Retraining, Functional Mobility, UE Funct Exercise/Act Treatment Duration: May 17, 2017 Visits Per Week: 5 Agreement: Yes Rehab Potential: Fair Time/GCodes Start Time: 11:10 Stop Time: 11:25 Total Time Billed (hr/min): 15 Billed Treatment Time 1, CHARITY FINN OT May 12, 2017 13:17
[2017-05-12 17:18] VITALS: BP 166/66
[2017-05-12] MEDS: hydrOXYzine (ATARAX) 10 MG TAB PO SCH (20:19)
[2017-05-12] MEDS: POLYETHYLENE GLYCOL 17 GM (MIRALAX) PACK PO SCH (20:19)
[2017-05-12] MEDS: MIRTAZAPINE 15 MG (REMERON) TAB PO SCH (20:19)
[2017-05-12] MEDS: ROSUVASTATIN 5 MG (CRESTOR) TABLET PO SCH (20:22)
[2017-05-13] MEDS: RT-ALBUTEROL SULF 2.5 MG/3 ML PRE-MIX VIAL INH SCH ×3 (01:56→10:43)
[2017-05-13 06:00] VITALS: BP 152/70
[2017-05-13] MEDS: RT-ADVAIR HFA 115/21 MCG PER PUFF IH SCH (06:38)
[2017-05-13] MEDS: UMECLIDINIUM BROMIDE (INCRUSE ELLIPTA) 7'S IH SCH (06:38)
[2017-05-13] MEDS: DOCUSATE SODIUM 100 MG (COLACE) CAP PO SCH (08:21)
[2017-05-13] MEDS: SENNA W/DOCUSATE (SENOKOT S) TABLET PO SCH (08:22)
--- NOTE | 2017-05-13 09:00 | Physical Therapy Daily Note ---
PT Daily Note-Current Subjective Patient is in bed and states she plans to dismiss to [place] this week for continued care. Pain Numeric Pain Scale: 0-No Pain Location: No Pain Reported Mental Status Patient Orientation: Normal For Age Attachments: Oxygen (3L) Transfers Functional [place] Measure 0=Not Assessed/NA 4=Minimal Assistance 1=Total Assistance 5=Supervision or Setup 2=Maximal Assistance 6=Modified [place] 3=Moderate Assistance 7=Complete IndependenceIRFPAI Quality Coding Scale 6 Independent with activity with or without an assistive device 5 Patient requires set up or clean up by helper. Patient completes activity by themselves 4 Supervision or touching assist (CGA). [place] provide cues , steadying assist 3 The helper provides less than half the effort to complete the activity 2 The helper provides more than half the effort to complete the activity 1 Dependent. The helper does all the effort to complete an activity 7 Patient refused to complete or attempt activity 9 The patient did not perform the activity before the current illness or injury 88 Not attempted due to Medical conditions or safety concerns Transfers (B, C, W/C) (FIM): 6 Scootin Rollin Supine to/from Sit: 6 Sit to/from Stand: 6 Gait Training Gait (FIM): 6 Distance (FIM): 3=150 ft Distance: 500' Gait Level of Assist: 6 Gait Persons Needed: 1 Gait Assistive Device: FWW assist for O2 tank with patient requiring standing recovery periods due to SOA on 4L O2 NC Assessment Increase in distance with ambulation to improve pulmonary function to enable patient to return to PLOF and return to home. Patient progressing. PT Detention Goals Detention Goals PT Lining Brusher Goals Time Frame: May 10, 2017 Transfers (B,C,W/C) (FIM): 5 Gait (FIM): 5 Distance: 150' Gait Level of Assist: 5 Gait Assistive Device: FWW PT Plan Treatment/Plan Treatment Plan: Continue Plan of Care Treatment Plan: Bed Mobility, Education, Functional Activity [place], Functional Strength, Gait, Safety, Therapeutic Exercise, Transfers Treatment Duration: May 10, 2017 Visits Per Week: 5-6 Minutes/Day (M-F): 15-30 Minutes/Day (Sat/[place]): 15-30 Time/GCodes Time In: 830 Time Out: 853 Total Billed Treatment Time: 23 Total Billed Treatment 1 visit FA x 2 23 min JANI WASSERMAN PT May 13, 2017 09:00
[2017-05-13] MEDS: chlordiazePOXIDE 25 MG (LIBRIUM) CAP NON-FORMULARY PO SCH (09:06)
[2017-05-13] MEDS: ARTIFICAL TEARS 0.4 ML UNIT DOSE (REFRESH PLUS) OU SCH (09:06)
[2017-05-13] MEDS: DILTIAZEM 120 MG (CARDIZEM CD) CAP PO SCH (09:06)
[2017-05-13] MEDS: LOSARTAN 50 MG (COZAAR) TAB PO SCH (09:06)
[2017-05-13] MEDS: FUROSEMIDE 20 MG (LASIX) TAB PO SCH (09:07)
[2017-05-13] MEDS: FAMOTIDINE 20 MG (PEPCID) TABLET PO SCH (09:07)
[2017-05-13] MEDS: DEXAMETHASONE 4 MG TAB (DECADRON) PO SCH (09:09)
[2017-05-13] MEDS: DIGOXIN 62.5 MCG (LANOXIN) TAB PO SCH (09:09)
--- NOTE | 2017-05-13 09:52 | Therapy Team Discharge Summary ---
Therapy Discharge Summary Discharge Recommendations Date of Discharge Therapy D/C Recommendations: Assisted Living Physical Therapy Patient has met all functional goals and will dismiss to [place] for continued care before returning to home. Patient is dependent with O2, as PLOF, and will continue. Patient is modified independent with all functional mobility. PT to dismiss patient from services at this time. PT Principle Industrial Hygienist Goals Principle Industrial Hygienist Goals PT Principle Industrial Hygienist Goals Time Frame: May 10, 2017 Transfers (B,C,W/C) (FIM): 5 (met 05/13/17) Sit to Lying (QC): 6 (met 05/13/17) Lying-Sitting on Side/Bed(QC): 6 (met 05/13/17) Sit to Stand (QC): 5 (met 05/13/17) Rollin (met 05/13/17) Gait (FIM): 5 (met 05/13/17) Distance: 150' Walk 50ft with 2 Turns (QC): 4 (met 05/13/17) Walk 150 ft (QC): 4 (met 05/13/17) Gait Level of Assist: 5 Gait Assistive Device: FWW OT Fpc Goals Principle Industrial Hygienist Goals Time Frame: May 17, 2017 Eating (FIM): 6 Eating (QC): 6 Groomin Oral Hygiene (QC): 6 Bathing(FIM): 6 Upper Body Dressing(FIM): 6 Lower Body Dressing(FIM): 6 Toileting(FIM): 6 Toileting Hygiene (QC): 6 Toilet/Commode Transfer(FIM): 6 Toilet/Commode Transfer (QC): 6 Shower Transfer(FIM): 5 Additional Goals: 1-Demonstrate ADL Tasks, 2-Verbalize Understanding, 3- ImproveStrength/[place] 1=Demonstrate adherence to instructed precautions during ADL tasks. 2=Patient will verbalize/demonstrate understanding of assistive devices/ modifications for ADL. 3=Patient will improve strength/tolerance for activity to enable patient to perform ADL's. JANI WASSERMAN PT May 13, 2017 09:52
--- NOTE | 2017-05-13 09:56 | Physical Therapy Daily Note ---
PT Daily Note-Current Subjective Patient is in bed and states she plans to dismiss to [place] this week for continued care. Pain Numeric Pain Scale: 0-No Pain Location: No Pain Reported Mental Status Patient Orientation: Normal For Age Attachments: Oxygen Transfers Functional [place] Measure 0=Not Assessed/NA 4=Minimal Assistance 1=Total Assistance 5=Supervision or Setup 2=Maximal Assistance 6=Modified [place] 3=Moderate Assistance 7=Complete IndependenceIRFPAI Quality Coding Scale 6 Independent with activity with or without an assistive device 5 Patient requires set up or clean up by helper. Patient completes activity by themselves 4 Supervision or touching assist (CGA). [place] provide cues , steadying assist 3 The helper provides less than half the effort to complete the activity 2 The helper provides more than half the effort to complete the activity 1 Dependent. The helper does all the effort to complete an activity 7 Patient refused to complete or attempt activity 9 The patient did not perform the activity before the current illness or injury 88 Not attempted due to Medical conditions or safety concerns Transfers (B, C, W/C) (FIM): 6 Scootin Roll Left to Right (QC): 6 Supine to/from Sit: 6 Sit to/from Stand: 6 Sit to Lying (QC): 6 Sit to Stand (QC): 6 Chair/Jwo-lx-Kobbi Xfer(QC): 6 Bed to/from Chair: 6 Gait Training Does the Patient Walk?: Yes Gait (FIM): 6 Distance (FIM): 3=150 ft Distance: 500' Walk 50 ft with 2 Turns(QC): 6 Walk 150 ft (QC): 6 Gait Level of Assist: 6 Gait Assistive Device: FWW assist for O2 tank with patient requiring standing recovery periods due to SOA on 4L O2 NC Assessment Increase in distance with ambulation to improve pulmonary function to enable patient to return to PLOF and return to home. Patient progressing. PT Paving Stone Installer Goals Paving Stone Installer Goals PT Paving Stone Installer Goals Time Frame: May 10, 2017 Transfers (B,C,W/C) (FIM): 5 (met 05/13/17) Sit to Lying (QC): 6 (met 05/13/17) Lying-Sitting on Side/Bed(QC): 6 (met 05/13/17) Sit to Stand (QC): 5 (met 05/13/17) Rollin (met 05/13/17) Gait (FIM): 5 (met 05/13/17) Distance: 150' Walk 50ft with 2 Turns (QC): 4 (met 05/13/17) Walk 150 ft (QC): 4 (met 05/13/17) Gait Level of Assist: 5 Gait Assistive Device: FWW PT Plan Treatment/Plan Treatment Plan: Discontinue PT, goals met Treatment Plan: Bed Mobility, Education, Functional Activity [place], Functional Strength, Gait, Safety, Therapeutic Exercise, Transfers Treatment Duration: May 10, 2017 Visits Per Week: 5-6 Minutes/Day (M-F): 15-30 Minutes/Day (Sat/[place]): 15-30 Time/GCodes Time In: 830 Time Out: 853 Total Billed Treatment Time: 23 Total Billed Treatment 1 visit FA x 2 23 min JANI WASSERMAN PT May 13, 2017 09:56
[2017-05-13] MEDS ORDERED: DEXA4TAB PO (13:14)
--- NOTE | 2017-05-13 13:16 | Discharge Inst-Skilled Nursing ---
Discharge Inst-Skilled NF Consult/Follow Up/Orders Follow Up Appt.: 2 weeks Skilled NF Admit to: [facility] Certification (SNF) I certify that SNF services are required to be given on an inpatient basis because of the above named patient's need for usp care on a continuing basis for the conditions(s) for which he/she was receiving inpatient hospital services prior to his/her transfer to the SNF. Senior Living Facility Order: Nursing Services, Processing Mgr-Evaluate & Treat, Physical Therapy-Evaluate & Treat Discharge Diet: Low Sodium Diet, Cardiac Diet Daily Activity as Tolerated: Yes New & Resume Previous Orders New & Resume Previous Orders Vestibular exercises with PT CBC, Chem 7 in 1 week Ruthie Paz May 13, 2017 13:15 RUTHIE PAZ DO May 13, 2017 13:16
[2017-05-13 13:51] VITALS: BP 152/70
--- NOTE | 2017-05-14 09:15 | Therapy Team Discharge Summary ---
Therapy Discharge Summary Discharge Recommendations Date of Discharge May 13, 2017 at 13:55 Therapy D/C Recommendations: Assisted Living Occupational Therapy Pt admitted to [facility] secondary to pneumonia. On admission pt required SBA for transfers and basic ADL tasks. Skilled OT intervention focused on ADL training, transfers, strengthening, and education. Pt required encouragement to participated in therapy, but progressed toward goals and by discharge pt is completing toilet transfers and toileting with modified independence. Pt met those goals, but did not meet all OT goals. Pt discharged to [facility] for continued care. D/C [facility] OT at this time. PT Formulation Chemist Goals Formulation Chemist Goals PT Senior Care Goals Time Frame: May 10, 2017 Transfers (B,C,W/C) (FIM): 5 (met 05/13/17) Sit to Lying (QC): 6 (met 05/13/17) Lying-Sitting on Side/Bed(QC): 6 (met 05/13/17) Sit to Stand (QC): 5 (met 05/13/17) Rollin (met 05/13/17) Gait (FIM): 5 (met 05/13/17) Distance: 150' Walk 50ft with 2 Turns (QC): 4 (met 05/13/17) Walk 150 ft (QC): 4 (met 05/13/17) Gait Level of Assist: 5 Gait Assistive Device: FWW OT Senior Care Goals Formulation Chemist Goals Time Frame: May 17, 2017 Eating (FIM): 6 Eating (QC): 6 Groomin Oral Hygiene (QC): 6 Bathing(FIM): 6 Upper Body Dressing(FIM): 6 Lower Body Dressing(FIM): 6 Toileting(FIM): 6 Toileting Hygiene (QC): 6 Toilet/Commode Transfer(FIM): 6 Toilet/Commode Transfer (QC): 6 Shower Transfer(FIM): 5 Additional Goals: 1-Demonstrate ADL Tasks, 2-Verbalize Understanding, 3- ImproveStrength/[place] 1=Demonstrate adherence to instructed precautions during ADL tasks. 2=Patient will verbalize/demonstrate understanding of assistive devices/ modifications for ADL. 3=Patient will improve strength/tolerance for activity to enable patient to perform ADL's. JARAD MARINO OT May 14, 2017 09:15
== END 2017-05-13 13:55 | DRG 190 ==
LOC: 4TH 12:25 → 3RD 05-07 11:25 → 4TH 05-07 11:25
PROVIDERS: ADMIT Family Medicine; ATTEND Family Medicine
PROC: 0TJB8ZZ Inspection of Bladder, Via Natural or Artificial Opening Endoscopic (ICD-10-PCS; principal; 2017-05-12 08:53)
DX: J44.1 Chronic obstructive pulmonary disease with (acute) exacerbation (principal); I50.43 Acute on chronic combined systolic (congestive) and diastolic (congestive) heart failure; D64.9 Anemia, unspecified; R31.29 Other microscopic hematuria; R53.1 Weakness; N17.9 Acute kidney failure, unspecified; D68.2 Hereditary deficiency of other clotting factors; F41.9 Anxiety disorder, unspecified; K21.9 Gastro-esophageal reflux disease without esophagitis; N28.1 Cyst of kidney, acquired; I25.5 Ischemic cardiomyopathy; K59.00 Constipation, unspecified; F43.10 Post-traumatic stress disorder, unspecified; H91.90 Unspecified hearing loss, unspecified ear; M19.91 Primary osteoarthritis, unspecified site; K44.9 Diaphragmatic hernia without obstruction or gangrene; Z87.01 Personal history of pneumonia (recurrent); Z99.81 Dependence on supplemental oxygen; Z87.891 Personal history of nicotine dependence; Z87.19 Personal history of other diseases of the digestive system
CPT/HCPCS: 36415; 71010; 71020; 76770; 80048; 80053; 80069; 80162; 81000; 82728; 83540; 83735; 83880; 85007; 85025; 85027; 86850; 86900; 86901; 86920; 87081; 94640; 94664; 94760

== ENCOUNTER → 2017-07-09 | Outpatient (CLI) | payer MEDICARE ==
[~2017-07-09] MED LIST changes: +DEXA4TAB PO; +L.AC1CAP6 PO; -MAGN250T PO; +MAGN250T2 PO; +SENN-40 PO
--- NOTE | 2017-07-09 11:23 | Diagnostic Imaging Report ---
INDICATION: Sensory loss. Confusion. TECHNIQUE: Routine non contrast-enhanced axial images were obtained from the skull base to the vertex. COMPARISON: 12/18/2016 FINDINGS: The ventricles and cortical sulci are mildly diffusely prominent consistent with age-related parenchymal volume loss. There is no midline shift or mass-effect. No acute intra-axial hemorrhage is seen. There are no abnormal areas of increased or decreased density to suggest acute hemorrhage or edema. No extra-axial masses or collections are present. The bony calvarium is intact. The visualized paranasal sinuses are unremarkable. The mastoid air cells are clear. IMPRESSION: 1. No acute intracranial abnormality. No CT evidence of mass, acute infarct or intracranial hemorrhage. Dictated by: Dictated on workstation # [id number]
--- NOTE | 2017-07-09 14:50 | Diagnostic Imaging Report ---
PROCEDURE: CT chest without contrast. TECHNIQUE: Multiple contiguous axial images were obtained through the chest without the use of intravenous contrast. INDICATION: Pneumonia. Exam compared 03/18/2017 and 10/14/2016. FINDINGS: There have been mixed interval changes when compared to prior. The more mass-like region of density in the far posterior aspect of the left upper lobe subpleural shows an improvement with redemonstration of its central lucent cavitary component measuring 2.3 cm. More posterocaudally, there is some residual tissue-like density but also improved. This suggests resolving or improved focal inflammatory process. Scarring in the left pulmonary apex most notably laterally is an unchanged finding. However, there is a new irregular consolidative process with a mass-like density in the right upper lobe distorting and abutting the top of the major fissure measuring roughly 4.2 x 4.0 cm. Along its posteromedial margin, there is cavitary cyst-like formation and along its anterior aspect it does contain some air-containing internal bronchograms. Its abrupt development from prior and the features of bronchograms favor pneumonia; however, its density is such that mass cannot be excluded on a neoplastic basis and a repeat exam in 3 months' time is necessary. Severe COPD is a chronic finding. There is a tiny pericardial effusion stable with no pleural effusion. While the hilar and mediastinal evaluation is challenged by the absence of contrast media, there are no findings at this study felt suggestive of lymphadenopathy. Mild ectasia of the ascending aorta stable 3.9 cm. There are coronary arterial atherosclerotic calcifications and a chronic tiny hiatal hernia. Mild thickening of the isthmus of the left adrenal gland is a stable finding from priors. Partially visualized unopacified liver unremarkable. Cyst in the spleen stable. IMPRESSION: 1. Left upper lobe subpleural lesion posteriorly shows reduction in its density and overall improvements consistent with resolving or improving regional inflammatory process. 2. However, new mass-like irregular opacity in the right upper lobe has developed and requires followup. The presence of a few air bronchograms as well as peripheral cysts favor pneumonia; however, a repeat exam in 3 months suggested. 3. Additional chronic findings stable. No other adverse development. Dictated by: Dictated on workstation # [id number]
== END ==
LOC: RAD 10:42
PROVIDERS: ATTEND Family Medicine
DX: R91.8 Other nonspecific abnormal finding of lung field (principal); J44.9 Chronic obstructive pulmonary disease, unspecified; I25.10 Atherosclerotic heart disease of native coronary artery without angina pectoris; K44.9 Diaphragmatic hernia without obstruction or gangrene
CPT/HCPCS: 70450; 71250

== ENCOUNTER 2017-09-19 07:35 | Emergency (ER) | payer MEDICARE ==
[~2017-09-19] VITALS: Ht 157.5 cm; Wt 56.7 kg
--- OUTSIDE RECORDS SUMMARY | 2017-09-19 07:52 | XMS REPORT ---
Author Author CATHI LEACH Organization [facility] Address [address] [place] [address] Phone Unavailable Care Team Providers Care Hand Former Name Role Phone CATHI LEACH Unavailable Unavailable PROBLEMS Unknown Problems ALLERGIES Substance Reaction Event Type Date Status PredniSONE Unknown Drug Allergy March, Active Penicillin V Potassium Unknown Drug Allergy March, Active Erythromycin Unknown Drug Allergy March, Active Cephalexin Unknown Drug Allergy March, Active no beta blockers Unknown Non Drug Allergy March, Active SOCIAL HISTORY Never Assessed PLAN OF CARE Activity Details Follow Up deonte Reason:restore VITAL SIGNS Blood pressure systolic 148 mmHg 2017-03-17 Blood pressure diastolic 74 mmHg 2017-03-17 MEDICATIONS Medication Instructions Dosage Frequency Start Date End Date Duration Status Famotidine Active Diltiazem HCl Active HydrOXYzine HCl Active Chlordiazepoxide HCl Active Digoxin Active Spiriva HandiHaler Active Advair HFA Active Losartan Potassium Active Simvastatin Active Furosemide Active Aspirin Active Mirtazapine Active albuterol Active Klor-Con Active RESULTS No Results PROCEDURES Procedure Date Ordered Result Body Site COMP ORAL EVALUATION - NEW/EST PT March 17, 2017 INTRAORL-PERIAPICAL 1 FILM [id number] March 17, 2017 INTRAORL-PERIAPICAL EA ADD FILM March 17, 2017 INTRAORL-PERIAPICAL EA ADD FILM March 17, 2017 PANORAMIC FILM SEE ALSO CODE [id number] March 17, 2017 BITEWINGS - FOUR FILMS March 17, 2017 IMMUNIZATIONS No Known Immunizations MEDICAL (GENERAL) HISTORY Type Description Date Medical History GERD Medical History anxuety Medical History ptsd Medical History HBP Medical History ischemic cardiomyopathy Medical History COPD Medical History high cholesterol Surgical History gallbladder 2007 Surgical History apendix 2008 Surgical History as an infant lower portion of left lung removed Hospitalization History pneunomia
[2017-09-19 09:00] LABS: BILIRUBIN,URINE NEGATIVE (NEGATIVE); KETONES,URINE NEGATIVE (NEGATIVE); LEUKOCYTE ESTERASE ,URINE 1+ (NEGATIVE); NITRITE,URINE NEGATIVE (NEGATIVE); PH,URINE 7 (5-9); PROTEIN,URINE 2+ (NEGATIVE); UROBILINOGEN,URINE NORMAL (NORMAL)
[2017-09-19 09:06] LABS: WBC,URINE 0-2 /HPF
[2017-09-19 09:10] LABS: BASOPHILS % (AUTO) 1 % (0-10); EOSINOPHILS # (AUTO) 0.3 10^3/uL (0.0-0.3); EOSINOPHILS % (AUTO) 4 % (0-10); LYMPHOCYTES # (AUTO) 1.2 X 10^3 (1.0-4.0); LYMPHOCYTES % (AUTO) 15 % (12-44); MEAN CORPUSCULAR HEMOGLOBIN 30 PG (25-34); MEAN CORPUSCULAR HGB CONC 32 G/DL (32-36); MEAN CORPUSCULAR VOLUME 93 FL (80-99); MEAN PLATELET VOLUME 8.5 FL (7.4-10.4); MONOCYTES # (AUTO) 0.9 X 10^3 (0.0-1.0); MONOCYTES % (AUTO) 12 % (0-12); NEUTROPHILS # (AUTO) 5.4 X 10^3 (1.8-7.8); NEUTROPHILS % (AUTO) 69 % (42-75); PLATELET COUNT 253 10^3/uL (130-400); RED BLOOD COUNT 4.03 10^6/uL (4.35-5.85); RED CELL DISTRIBUTION WIDTH 13.3 % (10.0-14.5); WHITE BLOOD COUNT 7.8 10^3/uL (4.3-11.0)
[2017-09-19 09:29] LABS: ALBUMIN 4.2 GM/DL (3.2-4.5); BILIRUBIN,TOTAL 0.3 MG/DL (0.1-1.0); CALCIUM 10.2 MG/DL (8.5-10.1); CREATININE SERUM 1.58 MG/DL (0.60-1.30); POTASSIUM 4.9 MMOL/L (3.6-5.0); TOTAL PROTEIN 7.6 GM/DL (6.4-8.2)
--- NOTE | 2017-09-19 11:10 | ED GI ---
General Chief Complaint: Abdominal/GI Problems Stated Complaint: VOMITING Nursing Triage Note: Pt vomited x 1 at 0650 this morning. She feels much improved and has no complaints currently. States the last time this happened she was septic. Currently on nitrofurantoin for UTI. Sepsis Screen: No Definite Risk Source of Information: Patient Exam Limitations: No Limitations History of Present Illness Time Seen By Provider: 11:02 Initial Comments The patient is a 77-year-old white female who presents this morning after vomiting once at home at approximately 06 50. She reports that she feels fine at this time. She is most concerned however because on April 11 she had been out and about and walking to her home and arm. She vomited without warning and continued to vomit. She was brought to the emergency room and ultimately found to be septic with pneumonia. She had a hospitalization of a week or more and then was discharged only to return. Ultimately she had about 4 weeks of acute care and then inpatient rehabilitation. The patient's vomitus this morning triggered memories of the whole process and brought her here Timing/Duration: 1-3 Hours Severity/Quality: Mild Allergies and Home Medications Allergies Coded Allergies: diphenhydramine HCl (Unverified Allergy, Severe, anaphalaxis, 09/10/14) Pt states this happened several yrs ago and that she had almost forgotten about it because she has avoided t for so long. fentanyl (Unverified Allergy, Mild, 09/10/14) PT DOES NOT WANT TO TAKE--SHE STAES IT MADE HER COPD WORSE midazolam (Unverified Allergy, Mild, PT TAKE LIBRIUM AT HOME, 09/10/14) PT DOESN'T WANT TO TAKE--SHE STATED IT MADE HER COPD OWRSE. Beta-Blockers (Beta-Adrenergic Bloc (Verified Allergy, Unknown, 09/10/14) Cephalosporins (Verified Allergy, Unknown, HAS RECEIVED CEFEPIME IN PAST W /O PROBLEM, 09/14/14) Penicillins (Verified Allergy, Unknown, HAS REC AZACTAM IN PAST WITHOUT PROBLEMS, 09/10/14) risedronic acid (Verified Allergy, Unknown, 09/10/14) prednisone (Unverified Adverse Reaction, Intermediate, Large doses cause SOA, 09/10/14) meperidine (Unverified Adverse Reaction, Mild, NAUSEA, 09/10/14) propofol (Unverified Adverse Reaction, Mild, 09/10/14) PT DOES NOT WANT TO TAKE--SHE STATES IT MADE HER COPD WORSE erythromycin base (Verified Adverse Reaction, Unknown, MAKES PATIENT NAUSEADED, 09/10/14) Home Medications Albuterol Sulfate 2.5 Mg/3 Ml Vial.neb, 2.5 MG NEB Q3H PRN for SHORTNESS OF BREATH, (Reported) Albuterol Sulfate 1 Puff Puff, 2 PUFF IH Q4H PRN for SHORTNESS OF BREATH, ( Reported) 1 PUFF = 90 MCG Aspirin 81 Mg Tabec, 81 MG PO DAILY, (Reported) Carboxymethylcellulos/Glycerin 15 Ml Drops, 1 DROP OU TID, (Reported) Chlordiazepoxide HCl 25 Mg Capsule, 25 MG PO BID, (Reported) Dexamethasone 4 Mg Tablet, 4 MG PO BID for 9 Days BID for 3days then 4mg daily for 3 days then 2mg daily for 3 days then stop Prescribed by: MELODY MCGEE on 05/13/17 1314 Digoxin 125 Mcg Tablet, 62.5 MG PO DAILY, (Reported) TAKES 1/2 OF A (125 MCG) TABLET Diltiazem HCl 120 Mg Cap.er.24h, 120 MG PO DAILY, (Reported) Famotidine 20 Mg Tablet, 20 MG PO BID, (Reported) Fluticasone/Salmeterol 1 Disk Inhp, 1 PUFF IH BID, (Reported) Furosemide 20 Mg Tablet, 20 MG PO DAILY, (Reported) Hydroxyzine HCl 10 Mg Tablet, 10 MG PO HS, (Reported) L.acidoph & Paracasei,B.lactis 1 Each Capsule, 1-2 CAP PO DAILY PRN for DIARRHEA , (Reported) Losartan Potassium 50 Mg Tablet, 50 MG PO BID, (Reported) Mirtazapine 30 Mg Tablet, 30 MG PO HS, (Reported) Josse/Polymyx B Sulf/Dexameth 3.5 Gm Oint...g., OU TWICE WEEKLY, (Reported) Potassium Chloride 10 Meq Tablet.er, 10 MEQ PO DAILY, (Reported) Sennosides/Docusate Sodium 1 Each Tablet, 2 TAB PO DAILY PRN for CONSTIPATION- 6TH LINE, (Reported) Simvastatin 40 Mg Tablet, 40 MG PO HS, (Reported) Tiotropium [place] 1 Inh Aerp, 1 CAP IH DAILY, (Reported) Review of Systems Constitutional: see HPI EENTM: No Symptoms Reported Respiratory: No Symptoms Reported Cardiovascular: No Symptoms Reported Gastrointestinal: Vomiting (once) Genitourinary: No Symptoms Reported Skin: no symptoms reported Psychiatric/Neurological: No Symptoms Reported Endocrine: No Symptoms Reported Hematologic/Lymphatic: No Symptoms Reported Past Xjhyfaf-Cejgeg-Nrrrhc Hx Patient Social History Alcohol Use: Denies Use Recreational Drug Use: No Type Used: Cigarettes Former Smoker, Quit: Apr 12, 2012 2nd Hand Smoke Exposure: No Recent Foreign Travel: No Contact w/Someone Who Travel: No Recent Infectious Disease Expo: No Recent Hopitalizations: No Immunizations Up To Date Tetanus Booster (TDap): More than 5yrs PED Vaccines UTD: Yes Date of Pneumonia Vaccine: Jul 09, 2012 Date of Influenza Vaccine: Aug 04, 2016 Seasonal Allergies Seasonal Allergies: Yes Surgeries History of Surgeries: Yes (thoracotomy) Surgeries: Appendectomy, Gallbladder, Tonsillectomy Respiratory History of Respiratory Disorde: Yes (HOME O2 AT 2L) Respiratory Disorders: Pneumonia, COPD, Emphysema Currently Using CPAP: No Currently Using BIPAP: No Cardiovascular History of Cardiac Disorders: Yes (ISCHEMIC CARDIOMYOPATHY) Neurological History of Neurological Disord: No Reproductive System Hx Reproductive Disorders: No Sexually Transmitted Disease: No HIV/AIDS: No Female Reproductive Disorders: Denies Genitourinary History of Genitourinary Disor: No Gastrointestinal History of Gastrointestinal Di: Yes Gastrointestinal Disorders: Gastroesophageal Reflux, Diverticulosis, Hemorrhoids, Hiatal Hernia, Gall Bladder Disease Musculoskeletal History of Musculoskeletal Dis: Yes Musculoskeletal Disorders: Arthritis Endocrine History of Endocrine Disorders: No HEENT History of HEENT Disorders: Yes (cataract removal) HEENT Disorders: Cataract Loss of Vision: Denies Hearing Impairment: Hard of Hearing Cancer History of Cancer: No Psychosocial History of Psychiatric Problem: Yes Behavioral Health Disorders: Anxiety, PTSD Integumentary History of Skin or Integumenta: No Blood Transfusions History of Blood Disorders: No Adverse Reaction to a Blood Tr: No Family Medical History Significant Family History: No Pertinent Family Hx Family Medial History: Alcoholism SONS Asthma DAUGHTER SONS Cardiovascular disease 19 MOTHER Cataracts 19 MOTHER Deafness or hearing loss G8 SISTER Diabetes mellitus SONS Gastroenteritis SONS Headache disorder SONS Hypertension SONS Myocardial infarction 19 FATHER Psychosocial problem 19 MOTHER No Family History of: AIDS Abdominal aortic aneurysm [place]'s disease Alzheimer's disease Aphasia Arthritis Cancer of mouth Colon cancer Completed stroke Congenital disease Congenital heart disease Coronary thrombosis Cystic fibrosis Dementia Drug abuse Dysphasia Fibrocystic disease of breast Glaucoma Hypercholesterolemia Infertility Kidney disease Neoplasm Not obtainable due to adoption Osteoporosis Parkinson's disease Prostate cancer Respiratory disorder Seizure disorder Severe allergy Thyroid disease Tuberculosis Visual disorder Physical Exam Vital Signs VS - Last 72 Hours, by Label 09/19/17 08:09 Pulse 94 Resp 20 B/P (MAP) 143/58 Pulse Ox 97 O2 Delivery Nasal Cannula O2 Flow Rate 3.00 Capillary Refill : Less Than 3 Seconds General Appearance: other (alert and charming. Very thin) HEENT: normal ENT inspection Neck: full range of motion Respiratory: decreased breath sounds (distant) Cardiovascular: normal peripheral pulses Gastrointestinal: normal bowel sounds, non tender, soft, no organomegaly, no pulsatile mass Extremities: normal range of motion, non-tender, normal inspection, no pedal edema, no calf tenderness, normal capillary refill, pelvis stable Back: normal inspection Neurologic/Psychiatric: machine lacer II-XII nml as tested, no motor/sensory deficits, alert, normal mood/affect, oriented x 3 Skin: normal color, warm/dry Lymphatic: no adenopathy Progress/Results/Core Measures Results/Orders Lab Results Laboratory Tests Test 09/19/17 08:50 09/19/17 09:03 Range/Units Urine Color YELLOW Urine Clarity CLEAR Urine pH 7 5-9 Urine Specific [place] 1.010 L 1.016-1.022 Urine Protein 2+ H NEGATIVE Urine Glucose (UA) NEGATIVE NEGATIVE Urine Ketones NEGATIVE NEGATIVE Urine Nitrite NEGATIVE NEGATIVE Urine Bilirubin NEGATIVE NEGATIVE Urine Urobilinogen NORMAL NORMAL MG/DL Urine Leukocyte Esterase 1+ H NEGATIVE Urine RBC (Auto) 1+ H NEGATIVE Urine RBC RARE /HPF Urine WBC 0-2 /HPF Urine Crystals NONE /LPF Urine Bacteria NEGATIVE /HPF Urine Casts NONE /LPF Urine Mucus NEGATIVE /LPF Urine Culture Indicated NO White Blood Count 7.8 4.3-11.0 10^3/uL Red Blood Count 4.03 L 4.35-5.85 10^6/uL Hemoglobin 12.2 11.5-16.0 G/DL Hematocrit 38 35-52 % Mean Corpuscular Volume 93 80-99 FL Mean Corpuscular Hemoglobin 30 25-34 PG Mean Corpuscular Hemoglobin Concent 32 32-36 G/DL Red Cell Distribution Width 13.3 10.0-14.5 % Platelet Count 253 130-400 10^3/uL Mean Platelet Volume 8.5 7.4-10.4 FL Neutrophils (%) (Auto) 69 42-75 % Lymphocytes (%) (Auto) 15 12-44 % Monocytes (%) (Auto) 12 0-12 % Eosinophils (%) (Auto) 4 0-10 % Basophils (%) (Auto) 1 0-10 % Neutrophils # (Auto) 5.4 1.8-7.8 X 10^3 Lymphocytes # (Auto) 1.2 1.0-4.0 X 10^3 Monocytes # (Auto) 0.9 0.0-1.0 X 10^3 Eosinophils # (Auto) 0.3 0.0-0.3 10^3/uL Basophils # (Auto) 0.0 0.0-0.1 10^3/uL Sodium Level 139 135-145 MMOL/L Potassium Level 4.9 3.6-5.0 MMOL/L Chloride Level 100 98-107 MMOL/L Carbon Dioxide Level 30 21-32 MMOL/L Anion Gap 9 5-14 MMOL/L Blood Urea Nitrogen 34 H 7-18 MG/DL Creatinine 1.58 H 0.60-1.30 MG/DL Estimat Glomerular Filtration Rate 32 BUN/Creatinine Ratio 22 Glucose Level 111 H 70-105 MG/DL Calcium Level 10.2 H 8.5-10.1 MG/DL Total Bilirubin 0.3 0.1-1.0 MG/DL Aspartate Amino Transf (AST/SGOT) 39 H 5-34 U/L Alanine Aminotransferase (ALT/SGPT) 32 0-55 U/L Alkaline Phosphatase 77 40-136 U/L Total Protein 7.6 6.4-8.2 GM/DL Albumin 4.2 3.2-4.5 GM/DL My Orders Orders - JOE POTTER MD Cbc With Automated Diff (09/19/17 08:35) Comprehensive Metabolic Panel (09/19/17 08:35) Ua Culture If Indicated (09/19/17 08:35) Vital Signs/I&O Vital Sign - Last 12Hours 09/19/17 08:09 Pulse 94 Resp 20 B/P (MAP) 143/58 Pulse Ox 97 O2 Delivery Nasal Cannula O2 Flow Rate 3.00 Blood Pressure Mean: 86 Departure Impression Impression: Primary Impression: vomiting 1 Disposition: 01 HOME, SELF-CARE Condition: Improved Departure-Patient Inst. Decision time for Depature: 11:11 Referrals: MELODY MCGEE DO (PCP/Family) Primary Care Physician Patient Instructions: No Instuctions Given Add. Discharge Instructions: All discharge instructions reviewed with patient and/or family. Voiced understanding. Take clear liquid diet at least until supper time. If no further nausea or vomiting you may then take a small feeding and proceed as tolerated. JOE POTTER MD Sep 19, 2017 11:09
[2017-09-19 11:16] VITALS: BP 132/60
== END 2017-09-19 11:16 | disposition home or self-care (01) ==
LOC: EDUNIT# 07:35 → ER 07:36
DX: R11.10 Vomiting, unspecified (principal); J43.9 Emphysema, unspecified; I42.8 Other cardiomyopathies; K21.9 Gastro-esophageal reflux disease without esophagitis; M19.90 Unspecified osteoarthritis, unspecified site; F41.9 Anxiety disorder, unspecified; F43.10 Post-traumatic stress disorder, unspecified; Z82.49 Family history of ischemic heart disease and other diseases of the circulatory system; Z87.19 Personal history of other diseases of the digestive system; Z87.01 Personal history of pneumonia (recurrent); Z79.82 Long term (current) use of aspirin; Z87.891 Personal history of nicotine dependence; Z90.49 Acquired absence of other specified parts of digestive tract; Z90.89 Acquired absence of other organs
CPT/HCPCS: 36415; 80053; 81000; 85025; 99282

== ENCOUNTER → 2017-09-28 | Outpatient (CLI) | payer MEDICARE ==
--- NOTE | 2017-09-28 14:26 | Diagnostic Imaging Report ---
Three views of the lumbar spine. INDICATION: Back pain. FINDINGS: There is grade 1 spondylolisthesis of L4 over L5. There are preserved vertebral body heights. Significant disc height loss at L5-S1 and moderate disc height loss at the L4-L5 levels seen. There are prominent sclerotic degenerative changes in the lower facet joints in the lumbar spine. The SI joints demonstrate degenerative sclerotic changes. Surgical clips in the upper right abdomen seen. IMPRESSION: Grade 1 spondylolisthesis of L4 over L5. Lower lumbar spine prominent sclerotic facet degenerative changes. Dictated by: Dictated on workstation # [id number]
--- NOTE | 2017-09-28 14:30 | Diagnostic Imaging Report ---
Three views of the SI joints. INDICATION: Low back pain. FINDINGS: There is grade 1 spondylolysis of L4 over L5 and degenerative disc and facet changes at L5-S1 seen. There is a slight deformity suggested at S2-S3 level on the lateral projection seen. The patient reports no recent injury. This could be related to an old injury. The SI joints demonstrate prominent sclerotic degenerative changes. No alignment abnormalities of the SI joints. Calcifications in the pelvis are compatible with phleboliths. IMPRESSION: There is a slight deformity seen in the mid sacrum on the lateral projection which could relate to an old injury. Dictated by: Dictated on workstation # [id number]
== END ==
LOC: RAD 09:45
PROVIDERS: ATTEND Family Medicine
DX: M43.16 Spondylolisthesis, lumbar region (principal)
CPT/HCPCS: 72100; 72220

== ENCOUNTER → 2017-11-12 | Outpatient (CLI) | payer MEDICARE ==
--- NOTE | 2017-11-12 12:18 | Diagnostic Imaging Report ---
PROCEDURE: CT chest without contrast. TECHNIQUE: Multiple contiguous axial images were obtained through the chest without the use of intravenous contrast. INDICATION: Followup of densities noted on 07/09/2017 CT scan. FINDINGS: Severe obstructive apical bullous emphysematous disease is again noted. The dense consolidated infiltrate in the lung apices are again noted. The density in the right lung apex has decreased considerably in size now approximately one-third of the original size. The density in the left lung apex is stable. Diffuse bullous cystic changes noted. Chronic appearing interstitial infiltrate noted throughout the peripheral aspect of the right upper lobe which is unchanged. Well-circumscribed nodule laterally in the left lung base measuring approximately 1 cm and stable. No mediastinal or hilar adenopathy of pathologic size has developed. Bone windows show no blastic or lytic lesion. IMPRESSION: 1. Severe obstructive interstitial bullous emphysema. 2. Bilateral apical scarring with recurrent intermittent pneumonia is demonstrated. Overall appearance today has improved. There are no changes noted today that would suggest malignancy. Dictated by: Dictated on workstation # [id number]
== END ==
LOC: RAD 11:23
PROVIDERS: ATTEND Family Medicine
DX: J98.2 Interstitial emphysema (principal); J18.9 Pneumonia, unspecified organism
CPT/HCPCS: 71250

== ENCOUNTER 2018-03-03 16:21 | Emergency (ER) | payer MEDICARE ==
[~2018-03-03] VITALS: Ht 149.9 cm; Wt 48.6 kg
--- NOTE | 2018-03-03 16:37 | Diagnostic Imaging Report ---
Indication: Slurred speech CT HEAD: Multiple contiguous axial CT images of the head were obtained. Comparison is made to study of 07/09/2017. FINDINGS: Ventricles and sulci are within normal limits for size. There is no intracranial hemorrhage identified. There is no abnormal mass effect or shift of midline structures. IMPRESSION: Unremarkable CT of the head. Dictated by: Dictated on workstation # [id number]
[2018-03-03 16:44] LABS: BASOPHILS % (AUTO) 1 % (0-10); EOSINOPHILS # (AUTO) 0.3 10^3/uL (0.0-0.3); EOSINOPHILS % (AUTO) 4 % (0-10); HEMATOCRIT 31 % (35-52); HEMOGLOBIN 10.5 G/DL (11.5-16.0); LYMPHOCYTES # (AUTO) 1.6 X 10^3 (1.0-4.0); LYMPHOCYTES % (AUTO) 22 % (12-44); MEAN CORPUSCULAR HEMOGLOBIN 33 PG (25-34); MEAN CORPUSCULAR HGB CONC 34 G/DL (32-36); MEAN CORPUSCULAR VOLUME 97 FL (80-99); MEAN PLATELET VOLUME 8.6 FL (7.4-10.4); MONOCYTES % (AUTO) 13 % (0-12); NEUTROPHILS # (AUTO) 4.5 X 10^3 (1.8-7.8); NEUTROPHILS % (AUTO) 61 % (42-75); PLATELET COUNT 275 10^3/uL (130-400); RED BLOOD COUNT 3.23 10^6/uL (4.35-5.85); RED CELL DISTRIBUTION WIDTH 12.5 % (10.0-14.5); WHITE BLOOD COUNT 7.4 10^3/uL (4.3-11.0)
--- NOTE | 2018-03-03 16:45 | ED Neurological Problem ---
General Chief Complaint: Neurological Problems Stated Complaint: POSSIBLE STROKE Source: patient Exam Limitations: no limitations History of Present Illness Date Seen by Provider: Mar 03, 2018 Time Seen by Provider: 16:40 Initial Comments The patient is a 77-year-old white female who reports that she was up and about at home today. She had gotten up to go to the kitchen and when she returned she tried to resume reading and was unable to really the words. She denies any loss of motor function or one-sided weakness. The EMS was called and she was brought here. She is alert. She is fully able to move upper and lower extremities and follows commands. She was able to repeat for me. Her stroke scale was 0 Timing/Duration: 1-3 hours Allergies and Home Medications Allergies Coded Allergies: diphenhydramine HCl (Unverified Allergy, Severe, anaphalaxis, 09/10/14) Pt states this happened several yrs ago and that she had almost forgotten about it because she has avoided t for so long. fentanyl (Unverified Allergy, Mild, 09/10/14) PT DOES NOT WANT TO TAKE--SHE STAES IT MADE HER COPD WORSE midazolam (Unverified Allergy, Mild, PT TAKE LIBRIUM AT HOME, 09/10/14) PT DOESN'T WANT TO TAKE--SHE STATED IT MADE HER COPD OWRSE. Beta-Blockers (Beta-Adrenergic Bloc (Verified Allergy, Unknown, 09/10/14) Cephalosporins (Verified Allergy, Unknown, HAS RECEIVED CEFEPIME IN PAST W /O PROBLEM, 09/14/14) Penicillins (Verified Allergy, Unknown, HAS REC AZACTAM IN PAST WITHOUT PROBLEMS, 09/10/14) risedronic acid (Verified Allergy, Unknown, 09/10/14) prednisone (Unverified Adverse Reaction, Intermediate, Large doses cause SOA, 09/10/14) meperidine (Unverified Adverse Reaction, Mild, NAUSEA, 09/10/14) propofol (Unverified Adverse Reaction, Mild, 09/10/14) PT DOES NOT WANT TO TAKE--SHE STATES IT MADE HER COPD WORSE erythromycin base (Verified Adverse Reaction, Unknown, MAKES PATIENT NAUSEADED, 09/10/14) Home Medications Albuterol Sulfate 2.5 Mg/3 Ml Vial.neb, 2.5 MG NEB Q3H PRN for SHORTNESS OF BREATH, (Reported) Albuterol Sulfate 1 Puff Puff, 2 PUFF IH Q4H PRN for SHORTNESS OF BREATH, ( Reported) 1 PUFF = 90 MCG Aspirin 81 Mg Tabec, 81 MG PO DAILY, (Reported) Carboxymethylcellulos/Glycerin 15 Ml Drops, 1 DROP OU TID, (Reported) Chlordiazepoxide HCl 25 Mg Capsule, 25 MG PO BID, (Reported) Dexamethasone 4 Mg Tablet, 4 MG PO BID BID for 3days then 4mg daily for 3 days then 2mg daily for 3 days then stop Prescribed by: MELODY MCGEE on 05/13/17 1314 Digoxin 125 Mcg Tablet, 62.5 MG PO DAILY, (Reported) TAKES 1/2 OF A (125 MCG) TABLET Diltiazem HCl 120 Mg Cap.er.24h, 120 MG PO DAILY, (Reported) Famotidine 20 Mg Tablet, 20 MG PO BID, (Reported) Fluticasone/Salmeterol 1 Disk Inhp, 1 PUFF IH BID, (Reported) Furosemide 20 Mg Tablet, 20 MG PO DAILY, (Reported) Hydroxyzine HCl 10 Mg Tablet, 10 MG PO HS, (Reported) L.acidoph & Paracasei,B.lactis 1 Each Capsule, 1-2 CAP PO DAILY PRN for DIARRHEA , (Reported) Losartan Potassium 50 Mg Tablet, 50 MG PO BID, (Reported) Mirtazapine 30 Mg Tablet, 30 MG PO HS, (Reported) Josse/Polymyx B Sulf/Dexameth 3.5 Gm Oint...g., OU TWICE WEEKLY, (Reported) Potassium Chloride 10 Meq Tablet.er, 10 MEQ PO DAILY, (Reported) Sennosides/Docusate Sodium 1 Each Tablet, 2 TAB PO DAILY PRN for CONSTIPATION- 6TH LINE, (Reported) Simvastatin 40 Mg Tablet, 40 MG PO HS, (Reported) Tiotropium [place] 1 Inh Aerp, 1 CAP IH DAILY, (Reported) Patient Home Medication List Home Medication List Reviewed: Yes Review of Systems Constitutional: see HPI Eyes: Blurred Vision Ears, Nose, Mouth, Throat: no symptoms reported Respiratory: no symptoms reported Cardiovascular: no symptoms reported Gastrointestinal: no symptoms reported Genitourinary: no symptoms reported Musculoskeletal: no symptoms reported Skin: no symptoms reported Psychiatric/Neurological: No Symptoms Reported Endocrine: No Symptoms Reported Hematologic/Lymphatic: No Symptoms Reported Past Gyymfjg-Ghalmz-Cjmeeg Hx Patient Social History Type Used: Cigarettes Former Smoker, Quit: Apr 12, 2012 2nd Hand Smoke Exposure: No Recent Hopitalizations: No Immunizations Up To Date Tetanus Booster (TDap): More than 5yrs PED Vaccines UTD: Yes Date of Pneumonia Vaccine: Jul 09, 2012 Date of Influenza Vaccine: Aug 04, 2016 Seasonal Allergies Seasonal Allergies: Yes Past Medical History Surgeries: Yes (thoracotomy) Appendectomy, Gallbladder, Tonsillectomy Respiratory: Yes (HOME O2 AT 2L) Pneumonia, COPD, Emphysema Currently Using CPAP: No Currently Using BIPAP: No Cardiac: Yes (ISCHEMIC CARDIOMYOPATHY) Neurological: No Reproductive Disorders: No Female Reproductive Disorders: Denies Sexually Transmitted Disease: No HIV/AIDS: No Genitourinary: No Gastrointestinal: Yes Gastroesophageal Reflux, Diverticulosis, Hemorrhoids, Hiatal Hernia, Gall Bladder Disease Musculoskeletal: Yes Arthritis Endocrine: No HEENT: Yes (cataract removal) Cataract Loss of Vision: Denies Hearing Impairment: Hard of Hearing Cancer: No Psychosocial: Yes Anxiety, PTSD Integumentary: No Blood Disorders: No Adverse Reaction/Blood Tranf: No Family Medical History Alcoholism SONS Asthma DAUGHTER SONS Cardiovascular disease 19 MOTHER Cataracts 19 MOTHER Deafness or hearing loss G8 SISTER Diabetes mellitus SONS Gastroenteritis SONS Headache disorder SONS Hypertension SONS Myocardial infarction 19 FATHER Psychosocial problem 19 MOTHER No Family History of: AIDS Abdominal aortic aneurysm [place]'s disease Alzheimer's disease Aphasia Arthritis Cancer of mouth Colon cancer Completed stroke Congenital disease Congenital heart disease Coronary thrombosis Cystic fibrosis Dementia Drug abuse Dysphasia Fibrocystic disease of breast Glaucoma Hypercholesterolemia Infertility Kidney disease Neoplasm Not obtainable due to adoption Osteoporosis Parkinson's disease Prostate cancer Respiratory disorder Seizure disorder Severe allergy Thyroid disease Tuberculosis Visual disorder No Pertinent Family Hx Physical Exam Vital Signs Vital Signs - First Documented 03/03/18 16:32 Temp 96.4 Pulse 77 Resp 18 B/P (MAP) 148/60 (89) Pulse Ox 100 O2 Delivery Nasal Cannula Capillary Refill : General Appearance: WD/WN HEENT: PERRL/EOMI, normal ENT inspection, TMs normal, pharynx normal Neck: non-tender, full range of motion Respiratory: wheezing Cardiovascular: normal peripheral pulses, regular rate, rhythm, no edema, no gallop, no JVD, no murmur Gastrointestinal: normal bowel sounds, non tender, soft, no organomegaly, no pulsatile mass Back: normal inspection Extremities: normal range of motion, non-tender, normal inspection, no pedal edema, no calf tenderness, normal capillary refill, pelvis stable 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, no motor/sensory deficits, alert, normal mood/affect, oriented x 3, abnormal cerebellar tests Crainal Nerves: normal hearing, normal speech, PERRL Coordination/Gait: normal finger to nose, normal gait Motor/Sensory: no motor deficit, no sensory deficit, no pronator drift Skin: normal color, warm/dry Lymphatic: no adenopathy Progress/Results/Core Measures Lab Results Laboratory Tests Test 03/03/18 16:35 03/03/18 17:00 Range/Units White Blood Count 7.4 4.3-11.0 10^3/uL Red Blood Count 3.23 L 4.35-5.85 10^6/uL Hemoglobin 10.5 L 11.5-16.0 G/DL Hematocrit 31 L 35-52 % Mean Corpuscular Volume 97 80-99 FL Mean Corpuscular Hemoglobin 33 25-34 PG Mean Corpuscular Hemoglobin Concent 34 32-36 G/DL Red Cell Distribution Width 12.5 10.0-14.5 % Platelet Count 275 130-400 10^3/uL Mean Platelet Volume 8.6 7.4-10.4 FL Neutrophils (%) (Auto) 61 42-75 % Lymphocytes (%) (Auto) 22 12-44 % Monocytes (%) (Auto) 13 H 0-12 % Eosinophils (%) (Auto) 4 0-10 % Basophils (%) (Auto) 1 0-10 % Neutrophils # (Auto) 4.5 1.8-7.8 X 10^3 Lymphocytes # (Auto) 1.6 1.0-4.0 X 10^3 Monocytes # (Auto) 1.0 0.0-1.0 X 10^3 Eosinophils # (Auto) 0.3 0.0-0.3 10^3/uL Basophils # (Auto) 0.0 0.0-0.1 10^3/uL Prothrombin Time 12.0 L 12.2-14.7 SEC INR Comment 0.9 0.8-1.4 Activated Partial Thromboplast Time 26 24-35 SEC D-Dimer 1.73 H 0.00-0.49 UG/ML Sodium Level 136 135-145 MMOL/L Potassium Level 4.8 3.6-5.0 MMOL/L Chloride Level 96 L 98-107 MMOL/L Carbon Dioxide Level 32 21-32 MMOL/L Anion Gap 8 5-14 MMOL/L Blood Urea Nitrogen 21 H 7-18 MG/DL Creatinine 1.43 H 0.60-1.30 MG/DL Estimat Glomerular Filtration Rate 35 BUN/Creatinine Ratio 15 Glucose Level 110 H 70-105 MG/DL Glucometer 118 H 70-110 MG/DL Calcium Level 9.6 8.5-10.1 MG/DL Total Bilirubin 0.3 0.1-1.0 MG/DL Aspartate Amino Transf (AST/SGOT) 30 5-34 U/L Alanine Aminotransferase (ALT/SGPT) 18 0-55 U/L Alkaline Phosphatase 54 40-136 U/L Troponin I < 0.30 <0.30 NG/ML Total Protein 7.0 6.4-8.2 GM/DL Albumin 4.0 3.2-4.5 GM/DL Urine Color YELLOW Urine Clarity CLEAR Urine pH 7 5-9 Urine Specific [place] 1.005 L 1.016-1.022 Urine Protein NEGATIVE NEGATIVE Urine Glucose (UA) NEGATIVE NEGATIVE Urine Ketones NEGATIVE NEGATIVE Urine Nitrite NEGATIVE NEGATIVE Urine Bilirubin NEGATIVE NEGATIVE Urine Urobilinogen NORMAL NORMAL MG/DL Urine Leukocyte Esterase 2+ H NEGATIVE Urine RBC (Auto) NEGATIVE NEGATIVE Urine RBC 0-2 /HPF Urine WBC 5-10 H /HPF Urine Crystals NONE /LPF Urine Bacteria TRACE /HPF Urine Casts NONE /LPF Urine Mucus NEGATIVE /LPF Urine Culture Indicated YES Vital Signs/I&O 03/03/18 16:32 Temp 96.4 Pulse 77 Resp 18 B/P (MAP) 148/60 (89) Pulse Ox 100 O2 Delivery Nasal Cannula Departure Communication (Admissions) [address] Mcgee. The patient will be restarted on daily aspirin. She should schedule an appointment for next week. Impression Primary Impression: TIA Disposition: HOME, SELF-CARE Condition: Improved Departure-Patient Inst. Decision time for Depature: 17:58 Referrals: MELODY MCGEE DO (PCP/Family) Primary Care Physician Patient Instructions: Transient Ischemic Attack (DC) Add. Discharge Instructions: All discharge instructions reviewed with patient and/or family. Voiced understanding. Beginning tomorrow take 81 mg aspirin 1 daily. Arrange for appointment at Dr. Mcgee's next week. If similar symptoms recur return to ER. JOE POTTER MD Mar 03, 2018 16:45
[2018-03-03 16:57] LABS: INR 0.9 (0.8-1.4)
[2018-03-03 17:01] LABS: ALANINE AMINOTRANSFERASE 18 U/L (0-55); ALKALINE PHOSPHATASE 54 U/L (40-136); BILIRUBIN,TOTAL 0.3 MG/DL (0.1-1.0); BUN/CREATININE RATIO 15; CALCIUM 9.6 MG/DL (8.5-10.1); CARBON DIOXIDE 32 MMOL/L (21-32); CHLORIDE 96 MMOL/L (98-107); CREATININE SERUM 1.43 MG/DL (0.60-1.30); GFR ESTIMATED 35; GLUCOSE 110 MG/DL (70-105); POTASSIUM 4.8 MMOL/L (3.6-5.0); SODIUM 136 MMOL/L (135-145)
[2018-03-03 17:08] LABS: BILIRUBIN,URINE NEGATIVE (NEGATIVE); CLARITY,URINE CLEAR; COLOR,URINE YELLOW; GLUCOSE, URINE (UA) NEGATIVE (NEGATIVE); KETONES,URINE NEGATIVE (NEGATIVE); LEUKOCYTE ESTERASE ,URINE 2+ (NEGATIVE); NITRITE,URINE NEGATIVE (NEGATIVE); PH,URINE 7 (5-9); PROTEIN,URINE NEGATIVE (NEGATIVE); UROBILINOGEN,URINE NORMAL (NORMAL)
[2018-03-03 17:18] LABS: BACTERIA,URINE TRACE /HPF; RBC,URINE 0-2 /HPF
[2018-03-03 17:23] LABS: FIBRIN DEGRADATION PRODUCTS 1.73 UG/ML (0.00-0.49)
--- NOTE | 2018-03-03 17:25 | Diagnostic Imaging Report ---
EXAMINATION: Portable erect AP chest at 05:11 p.m. INDICATION: CVA. FINDINGS: The heart size is within normal limits and stable when compared to 05/10/2017. The left apical scarring seen on the prior study is again evident and no different. There are chronic pulmonary changes involving the right upper lung as well and these seem similar to the prior study. The lung bases are generally clear. The mediastinum is not widened. The osseous structures are intact. IMPRESSION: There is chronic pulmonary disease, primarily involving the lung apices. There is no acute abnormality identified, however. Dictated by: Dictated on workstation # [id number]
[2018-03-03] MEDS: ASPIRIN 325 MG (5 GR) TABLET PO ONE (18:10)
[2018-03-03 18:17] VITALS: BP 164/76
== END 2018-03-03 18:17 | disposition home or self-care (01) ==
LOC: EDUNIT# 16:21 → ER 16:22
DX: G45.9 Transient cerebral ischemic attack, unspecified (principal); J43.9 Emphysema, unspecified; I25.5 Ischemic cardiomyopathy; K21.9 Gastro-esophageal reflux disease without esophagitis; F41.9 Anxiety disorder, unspecified; F43.10 Post-traumatic stress disorder, unspecified; Z82.49 Family history of ischemic heart disease and other diseases of the circulatory system; Z87.19 Personal history of other diseases of the digestive system; Z88.0 Allergy status to penicillin; Z88.8 Allergy status to other drugs, medicaments and biological substances; Z88.5 Allergy status to narcotic agent; Z88.1 Allergy status to other antibiotic agents; Z88.4 Allergy status to anesthetic agent; Z79.82 Long term (current) use of aspirin; Z79.51 Long term (current) use of inhaled steroids; Z87.891 Personal history of nicotine dependence; Z90.49 Acquired absence of other specified parts of digestive tract; Z87.01 Personal history of pneumonia (recurrent); Z90.89 Acquired absence of other organs
CPT/HCPCS: 36415; 70450; 71045; 80053; 81000; 82962; 84484; 85025; 85379; 85610; 85730; 87088; 93005; 93041

== ENCOUNTER 2018-04-16 09:00 | Emergency (ER) | payer MEDICARE ==
[~2018-04-16] VITALS: Ht 152.4 cm; Wt 48.5 kg
[2018-04-16] MEDS ORDERED: NS IV 500 ML 500 ML IV ONE (09:08)
[2018-04-16 09:22] LABS: BASOPHILS % (AUTO) 0 % (0-10); EOSINOPHILS # (AUTO) 0.3 10^3/uL (0.0-0.3); EOSINOPHILS % (AUTO) 3 % (0-10); HEMATOCRIT 30 % (35-52); HEMOGLOBIN 9.9 G/DL (11.5-16.0); LYMPHOCYTES # (AUTO) 1.3 X 10^3 (1.0-4.0); LYMPHOCYTES % (AUTO) 17 % (12-44); MEAN CORPUSCULAR HEMOGLOBIN 31 PG (25-34); MEAN CORPUSCULAR HGB CONC 33 G/DL (32-36); MEAN CORPUSCULAR VOLUME 95 FL (80-99); MEAN PLATELET VOLUME 8.5 FL (7.4-10.4); MONOCYTES # (AUTO) 1.1 X 10^3 (0.0-1.0); MONOCYTES % (AUTO) 14 % (0-12); NEUTROPHILS # (AUTO) 5.1 X 10^3 (1.8-7.8); NEUTROPHILS % (AUTO) 66 % (42-75); PLATELET COUNT 288 10^3/uL (130-400); RED BLOOD COUNT 3.15 10^6/uL (4.35-5.85); WHITE BLOOD COUNT 7.8 10^3/uL (4.3-11.0)
--- NOTE | 2018-04-16 09:26 | ED Cardiac General ---
History of Present Illness General Chief Complaint: Cardiac/General Problems Stated Complaint: CARDIAC ISSUES Source: patient Exam Limitations: no limitations History of Present Illness Date Seen by Provider: Apr 16, 2018 Time Seen by Provider: 09:00 Initial Comments Here with report of heart rate that is not right. Denies chest pain but states that she hasn't felt well over the last 2 weeks and is increasingly weak. Denies nausea, vomiting, diarrhea or breathing problems. Timing/Duration: 1 week, getting worse Severity: moderate Location: central Activities at Onset: none Prior CP/Workup: cardiac cath, echocardiography Modifying Factors: improves with rest NTG SL ONCOLOGY PHYSICIAN: No ASA po ONCOLOGY PHYSICIAN: Yes Associated Systoms: No Fever/Chills, No Nausea/Vomiting, No Shortness of Air, No Weakness Allergies and Home Medications Allergies Coded Allergies: diphenhydramine HCl (Unverified Allergy, Severe, anaphalaxis, 09/10/14) Pt states this happened several yrs ago and that she had almost forgotten about it because she has avoided t for so long. fentanyl (Unverified Allergy, Mild, 09/10/14) PT DOES NOT WANT TO TAKE--SHE STAES IT MADE HER COPD WORSE midazolam (Unverified Allergy, Mild, PT TAKE LIBRIUM AT HOME, 09/10/14) PT DOESN'T WANT TO TAKE--SHE STATED IT MADE HER COPD OWRSE. Beta-Blockers (Beta-Adrenergic Bloc (Verified Allergy, Unknown, 09/10/14) Cephalosporins (Verified Allergy, Unknown, HAS RECEIVED CEFEPIME IN PAST W /O PROBLEM, 09/14/14) Penicillins (Verified Allergy, Unknown, HAS REC AZACTAM IN PAST WITHOUT PROBLEMS, 09/10/14) risedronic acid (Verified Allergy, Unknown, 09/10/14) prednisone (Unverified Adverse Reaction, Intermediate, Large doses cause SOA, 09/10/14) meperidine (Unverified Adverse Reaction, Mild, NAUSEA, 09/10/14) propofol (Unverified Adverse Reaction, Mild, 09/10/14) PT DOES NOT WANT TO TAKE--SHE STATES IT MADE HER COPD WORSE erythromycin base (Verified Adverse Reaction, Unknown, MAKES PATIENT NAUSEADED, 09/10/14) Home Medications Albuterol Sulfate 2.5 Mg/3 Ml Vial.neb, 2.5 MG NEB Q3H PRN for SHORTNESS OF BREATH, (Reported) Albuterol Sulfate 1 Puff Puff, 2 PUFF IH Q4H PRN for SHORTNESS OF BREATH, ( Reported) 1 PUFF = 90 MCG Aspirin 81 Mg Tabec, 81 MG PO DAILY, (Reported) Carboxymethylcellulos/Glycerin 15 Ml Drops, 1 DROP OU TID, (Reported) Chlordiazepoxide HCl 25 Mg Capsule, 25 MG PO BID, (Reported) Dexamethasone 4 Mg Tablet, 4 MG PO BID BID for 3days then 4mg daily for 3 days then 2mg daily for 3 days then stop Prescribed by: MELODY PAZ on 05/13/17 1314 Digoxin 125 Mcg Tablet, 62.5 MG PO DAILY, (Reported) TAKES 1/2 OF A (125 MCG) TABLET Diltiazem HCl 120 Mg Cap.er.24h, 120 MG PO DAILY, (Reported) Famotidine 20 Mg Tablet, 20 MG PO BID, (Reported) Fluticasone/Salmeterol 1 Disk Inhp, 1 PUFF IH BID, (Reported) Furosemide 20 Mg Tablet, 20 MG PO DAILY, (Reported) Hydroxyzine HCl 10 Mg Tablet, 10 MG PO HS, (Reported) L.acidoph & Paracasei,B.lactis 1 Each Capsule, 1-2 CAP PO DAILY PRN for DIARRHEA , (Reported) Losartan Potassium 50 Mg Tablet, 50 MG PO BID, (Reported) Mirtazapine 30 Mg Tablet, 30 MG PO HS, (Reported) Josse/Polymyx B Sulf/Dexameth 3.5 Gm Oint...g., OU TWICE WEEKLY, (Reported) Potassium Chloride 10 Meq Tablet.er, 10 MEQ PO DAILY, (Reported) Sennosides/Docusate Sodium 1 Each Tablet, 2 TAB PO DAILY PRN for CONSTIPATION- 6TH LINE, (Reported) Simvastatin 40 Mg Tablet, 40 MG PO HS, (Reported) Tiotropium [place] 1 Inh Aerp, 1 CAP IH DAILY, (Reported) Patient Home Medication List Home Medication List Reviewed: Yes Review of Systems Constitutional: no symptoms reported EENTM: No Symptoms Reported Respiratory: Denies Cough, Denies Shortness of Air Cardiovascular: Denies Chest Pain, Denies Edema; Palpitations Gastrointestinal: Denies Nausea, Denies Vomiting Genitourinary: No Symptoms Reported Musculoskeletal: no symptoms reported All Other Systems Reviewed Negative Unless Noted: Yes Past Veeesxx-Oxgqcq-Bpyqcg Hx Past Med/Social Hx: Reviewed Nursing Past Med/Soc Hx Patient Social History Alcohol Use: Denies Use Recreational Drug Use: No Smoking Status: Former Smoker Type Used: Cigarettes Former Smoker, Quit: Apr 12, 2006 2nd Hand Smoke Exposure: No Recent Foreign Travel: No Contact w/Someone Who Travel: No Recent Hopitalizations: No Immunizations Up To Date Tetanus Booster (TDap): More than 5yrs PED Vaccines UTD: Yes Date of Pneumonia Vaccine: Jul 09, 2012 Date of Influenza Vaccine: Aug 04, 2016 Seasonal Allergies Seasonal Allergies: Yes Past Medical History Surgeries: Yes (thoracotomy) Appendectomy, Gallbladder, Tonsillectomy Respiratory: Yes (HOME O2 AT 2L) Pneumonia, COPD, Emphysema Currently Using CPAP: No Currently Using BIPAP: No Cardiac: Yes (ISCHEMIC CARDIOMYOPATHY) Hypertension Neurological: No Reproductive Disorders: No Female Reproductive Disorders: Denies Sexually Transmitted Disease: No HIV/AIDS: No Genitourinary: No Gastrointestinal: Yes Gastroesophageal Reflux, Diverticulosis, Hemorrhoids, Hiatal Hernia, Gall Bladder Disease Musculoskeletal: Yes Arthritis Endocrine: No HEENT: Yes (cataract removal) Cataract Loss of Vision: Denies Hearing Impairment: Hard of Hearing Cancer: No Psychosocial: Yes Anxiety, PTSD Integumentary: No Blood Disorders: No Adverse Reaction/Blood Tranf: No Family Medical History Reviewed Nursing Family Hx Alcoholism SONS Asthma DAUGHTER SONS Cardiovascular disease 19 MOTHER Cataracts 19 MOTHER Deafness or hearing loss G8 SISTER Diabetes mellitus SONS Gastroenteritis SONS Headache disorder SONS Hypertension SONS Myocardial infarction 19 FATHER Psychosocial problem 19 MOTHER No Family History of: AIDS Abdominal aortic aneurysm Joey's disease Alzheimer's disease Aphasia Arthritis Cancer of mouth Colon cancer Completed stroke Congenital disease Congenital heart disease Coronary thrombosis Cystic fibrosis Dementia Drug abuse Dysphasia Fibrocystic disease of breast Glaucoma Hypercholesterolemia Infertility Kidney disease Neoplasm Not obtainable due to adoption Osteoporosis Parkinson's disease Prostate cancer Respiratory disorder Seizure disorder Severe allergy Thyroid disease Tuberculosis Visual disorder No Pertinent Family Hx Physical Exam Vital Signs Vital Signs - First Documented 04/16/18 09:19 Temp 98.0 Pulse 91 Resp 18 B/P (MAP) 183/78 (113) Pulse Ox 100 O2 Delivery Nasal Cannula O2 Flow Rate 3.00 Capillary Refill : General Appearance: No Apparent Distress, WD/WN HEENT: PERRL/EOMI, Pharynx Normal Neck: Non Tender, Supple Respiratory: Lungs Clear, Normal Breath Sounds Cardiovascular: Regular Rate, Rhythm, No Murmur Gastrointestinal: Non Tender, Soft Extremity: Normal Range of Motion, Non Tender Neurologic/Psychiatric: Alert, Oriented x3 Skin: Normal Color, Warm/Dry Progress/Results/Core Measures Results/Orders Lab Results Laboratory Tests Test 04/16/18 09:11 04/16/18 09:45 Range/Units White Blood Count 7.8 4.3-11.0 10^3/uL Red Blood Count 3.15 L 4.35-5.85 10^6/uL Hemoglobin 9.9 L 11.5-16.0 G/DL Hematocrit 30 L 35-52 % Mean Corpuscular Volume 95 80-99 FL Mean Corpuscular Hemoglobin 31 25-34 PG Mean Corpuscular Hemoglobin Concent 33 32-36 G/DL Red Cell Distribution Width 12.0 10.0-14.5 % Platelet Count 288 130-400 10^3/uL Mean Platelet Volume 8.5 7.4-10.4 FL Neutrophils (%) (Auto) 66 42-75 % Lymphocytes (%) (Auto) 17 12-44 % Monocytes (%) (Auto) 14 H 0-12 % Eosinophils (%) (Auto) 3 0-10 % Basophils (%) (Auto) 0 0-10 % Neutrophils # (Auto) 5.1 1.8-7.8 X 10^3 Lymphocytes # (Auto) 1.3 1.0-4.0 X 10^3 Monocytes # (Auto) 1.1 H 0.0-1.0 X 10^3 Eosinophils # (Auto) 0.3 0.0-0.3 10^3/uL Basophils # (Auto) 0.0 0.0-0.1 10^3/uL Sodium Level 136 135-145 MMOL/L Potassium Level 4.4 3.6-5.0 MMOL/L Chloride Level 98 98-107 MMOL/L Carbon Dioxide Level 27 21-32 MMOL/L Anion Gap 11 5-14 MMOL/L Blood Urea Nitrogen 16 7-18 MG/DL Creatinine 1.35 H 0.60-1.30 MG/DL Estimat Glomerular Filtration Rate 38 BUN/Creatinine Ratio 12 Glucose Level 109 H 70-105 MG/DL Calcium Level 9.4 8.5-10.1 MG/DL Total Bilirubin 0.3 0.1-1.0 MG/DL Aspartate Amino Transf (AST/SGOT) 26 5-34 U/L Alanine Aminotransferase (ALT/SGPT) 18 0-55 U/L Alkaline Phosphatase 59 40-136 U/L Troponin I < 0.30 <0.30 NG/ML C-Reactive Protein High Sensitivity 1.38 H 0.00-0.50 MG/DL B-Type Natriuretic Peptide 109.6 H <100.0 PG/ML Total Protein 6.7 6.4-8.2 GM/DL Albumin 3.9 3.2-4.5 GM/DL Thyroid Stimulating Hormone (TSH) 5.34 H 0.35-4.94 UIU/ML Urine Color YELLOW Urine Clarity CLEAR Urine pH 8 5-9 Urine Specific [place] 1.010 L 1.016-1.022 Urine Protein 2+ H NEGATIVE Urine Glucose (UA) NEGATIVE NEGATIVE Urine Ketones NEGATIVE NEGATIVE Urine Nitrite NEGATIVE NEGATIVE Urine Bilirubin NEGATIVE NEGATIVE Urine Urobilinogen NORMAL NORMAL MG/DL Urine Leukocyte Esterase 1+ H NEGATIVE Urine RBC (Auto) NEGATIVE NEGATIVE Urine RBC 0-2 /HPF Urine WBC 0-2 /HPF Urine Squamous Epithelial Cells 0-2 /HPF Urine Crystals NONE /LPF Urine Bacteria FEW H /HPF Urine Casts NONE /LPF Urine Mucus NEGATIVE /LPF Urine Culture Indicated NO My Orders Orders - PAUL LEBRON MD Ekg Tracing (04/16/18 09:03) BNP (04/16/18 09:08) Cbc With Automated Diff (04/16/18 09:08) Comprehensive Metabolic Panel (04/16/18 09:08) Hs C Reactive Protein (04/16/18 09:08) Thyroid Stimulating Hormone (04/16/18 09:08) Troponin I (04/16/18 09:08) Ua Culture If Indicated (04/16/18 09:08) Chest 1 View, Ap/Pa Only (04/16/18 09:08) Saline Lock/Iv-Start (04/16/18 09:08) Ns Iv 500 Ml (Sodium Chloride 0.9%) (04/16/18 09:08) O2 (04/16/18 09:08) Monitor-Rhythm Ecg Trace Only (04/16/18 09:08) Medications Given in ED Current Medications Medications Dose Ordered Sig/German Route Start Time Stop Time Status Last Admin Dose Admin Sodium Chloride 500 ml @ 0 mls/hr Q0M ONCE IV 6/9/18 09:08 04/16/18:11 DC 04/16/18 09:47 500 MLS/HR Vital Signs/I&O 04/16/18 04/16/18 09:19 09:19 Temp 98.0 Pulse 91 Resp 18 B/P (MAP) 183/78 (113) Pulse Ox 100 O2 Delivery Nasal Cannula Nasal Cannula O2 Flow Rate 3.00 Progress Progress Note : Progress Note Seen and evaluated. IV, labs, EKG and chest x-ray ordered. Normal saline 500 mL bolus. We will check UA as well. Monitor patient. 1135: No acute findings. Patient ambulated to the bathroom without difficulty. Discharged home with return precautions. Patient verbalize understanding instructions and agreement with plan. She does have appointment with Dr. Soto on Wednesday. I will send a copy of the chart and Dr. Paz and Dr. Soto. Initial ECG Impression Date: Apr 16, 2018 Initial ECG Impression Time: 09:04 Initial ECG Rate: 91 Initial ECG Rhythm: Normal Sinus Comment Sinus rhythm with PAC. No evidence of ST elevation [place]. Similar to previous of 03/03/18. Interpreted by me. Diagnostic Imaging Diagonstic Imaging: Xray Plain Films/CT/US/NM/MRI: chest Comments NAME: [facility] REC#: [id number] PT STATUS: REG ER : 1940 PHYSICIAN: PAUL LEBRON MD ADMIT DATE: 04/16/18/ER Signed Date of Exam: 04/16/18 CHEST 1 VIEW, AP/PA ONLY INDICATION: Heart palpitations. COMPARISON: 03/03/2018. FINDINGS: Chronic architectural distortion in the bilateral upper lobes is unchanged. No new airspace disease. No pleural effusion or pneumothorax. Stable borderline cardiomegaly. IMPRESSION: 1. No acute cardiopulmonary process by portable radiography. 2. Chronic architectural distortion in the lung apices is unchanged. Dictated by: Dictated on workstation # [id number] Dict: 04/16/18948 Trans: 04/16/18957 Interpreted by: CHLOÉ BRITO MD Electronically signed by: CHLOÉ BRITO MD 04/16/18957 Departure Impression Primary Impression: Palpitations Disposition: 01 HOME, SELF-CARE Condition: Improved Departure-Patient Inst. Decision time for Depature: 11:42 Referrals: MELODY PAZ DO (PCP/Family) Primary Care Physician Patient Instructions: Palpitations (DC) Add. Discharge Instructions: All discharge instructions reviewed with patient and/or family. Voiced understanding. Follow-up with Dr. Soto on Wednesday as scheduled. Follow-up with your primary doctor this week for recheck and further evaluation as well. Return for worse pain, fever, vomiting, weakness, breathing problems or other concerns as needed. Copy Copies To 1: MELODY PAZ DO Copies To 2: CASSIE SOTO MD FACP [facility] PAUL LEBRON MD Apr 16, 2018 09:26
[2018-04-16 09:40] LABS: ALANINE AMINOTRANSFERASE 18 U/L (0-55); ALBUMIN 3.9 GM/DL (3.2-4.5); ALKALINE PHOSPHATASE 59 U/L (40-136); BILIRUBIN,TOTAL 0.3 MG/DL (0.1-1.0); BUN/CREATININE RATIO 12; CALCIUM 9.4 MG/DL (8.5-10.1); CARBON DIOXIDE 27 MMOL/L (21-32); CHLORIDE 98 MMOL/L (98-107); CREATININE SERUM 1.35 MG/DL (0.60-1.30); GFR ESTIMATED 38; GLUCOSE 109 MG/DL (70-105); POTASSIUM 4.4 MMOL/L (3.6-5.0); SODIUM 136 MMOL/L (135-145); TOTAL PROTEIN 6.7 GM/DL (6.4-8.2)
[2018-04-16 09:55] LABS: BILIRUBIN,URINE NEGATIVE (NEGATIVE); CLARITY,URINE CLEAR; COLOR,URINE YELLOW; GLUCOSE, URINE (UA) NEGATIVE (NEGATIVE); KETONES,URINE NEGATIVE (NEGATIVE); LEUKOCYTE ESTERASE ,URINE 1+ (NEGATIVE); NITRITE,URINE NEGATIVE (NEGATIVE); PH,URINE 8 (5-9); PROTEIN,URINE 2+ (NEGATIVE); UROBILINOGEN,URINE NORMAL (NORMAL)
--- NOTE | 2018-04-16 09:58 | Diagnostic Imaging Report ---
INDICATION: Heart palpitations. COMPARISON: 03/03/2018. FINDINGS: Chronic architectural distortion in the bilateral upper lobes is unchanged. No new airspace disease. No pleural effusion or pneumothorax. Stable borderline cardiomegaly. IMPRESSION: 1. No acute cardiopulmonary process by portable radiography. 2. Chronic architectural distortion in the lung apices is unchanged. Dictated by: Dictated on workstation # [id number]
[2018-04-16 10:01] LABS: RBC,URINE 0-2 /HPF; WBC,URINE 0-2 /HPF
[2018-04-16 10:02] LABS: BACTERIA,URINE FEW /HPF; SQUAMOUS EPITHELIAL CELL,UR 0-2 /HPF
[2018-04-16 11:48] VITALS: BP 116/51
== END 2018-04-16 11:48 | disposition home or self-care (01) ==
LOC: EDUNIT# 09:00 → ER 09:02
DX: R00.2 Palpitations (principal); J43.9 Emphysema, unspecified; I10 Essential (primary) hypertension; K21.9 Gastro-esophageal reflux disease without esophagitis; F41.9 Anxiety disorder, unspecified; F43.10 Post-traumatic stress disorder, unspecified; Z90.49 Acquired absence of other specified parts of digestive tract; Z90.89 Acquired absence of other organs; Z87.891 Personal history of nicotine dependence; Z79.82 Long term (current) use of aspirin; Z79.51 Long term (current) use of inhaled steroids; Z88.6 Allergy status to analgesic agent; Z88.0 Allergy status to penicillin; Z88.8 Allergy status to other drugs, medicaments and biological substances
CPT/HCPCS: 36415; 71045; 80053; 81000; 83880; 84443; 84484; 85025; 86141; 93005; 93041; 96360

== ENCOUNTER 2018-04-25 08:53 | Emergency (ER) | payer MEDICARE ==
[~2018-04-25] VITALS: Ht 152.4 cm; Wt 47.6 kg
[2018-04-25 09:22] LABS: BILIRUBIN,URINE NEGATIVE (NEGATIVE); CLARITY,URINE CLEAR; COLOR,URINE YELLOW; GLUCOSE, URINE (UA) NEGATIVE (NEGATIVE); KETONES,URINE NEGATIVE (NEGATIVE); LEUKOCYTE ESTERASE ,URINE NEGATIVE (NEGATIVE); NITRITE,URINE NEGATIVE (NEGATIVE); PH,URINE 7 (5-9); PROTEIN,URINE 2+ (NEGATIVE); UROBILINOGEN,URINE NORMAL (NORMAL)
[2018-04-25 09:29] LABS: BACTERIA,URINE NEGATIVE /HPF; RBC,URINE 0-2 /HPF; SQUAMOUS EPITHELIAL CELL,UR RARE /HPF
--- NOTE | 2018-04-25 10:17 | ED General ---
General Chief Complaint: Back Problems Stated Complaint: RIGHT SIDE PAIN Nursing Triage Note: Patient states that she has pain in her right side of her back that radiates to the fron of her stomach. it is worse with movement. She has had this pain since wednesday. Pain is relieved by laying flat in bed. Nursing Sepsis Screen: No Definite Risk Source of Information: Patient Exam Limitations: No Limitations History of Present Illness Date Seen by Provider: Apr 25, 2018 Time Seen by Provider: 09:02 Initial Comments This 77-year-old woman presents to the emergency room with complaints of pain along the right lower back and radiating along the costal margin since April 19. Pain is worse with coughing and deep breathing. She reports starting some thyroid medication on April 20. Since April 20 she has also had some increased shortness of breath. She has a chronic cough related to COPD and is dependent on supplemental oxygen. She denies any fever or worsening of the cough. She denies nausea, vomiting, diarrhea, constipation, or urinary changes. Her gallbladder is surgically absent. On assessment patient was noted to have irregular heart rhythm. She notes a prior history of atrial fibrillation and she is on digoxin. She is not presently anticoagulated. Allergies and Home Medications Allergies Coded Allergies: diphenhydramine HCl (Unverified Allergy, Severe, anaphalaxis, 09/10/14) Pt states this happened several yrs ago and that she had almost forgotten about it because she has avoided t for so long. fentanyl (Unverified Allergy, Mild, 09/10/14) PT DOES NOT WANT TO TAKE--SHE STAES IT MADE HER COPD WORSE midazolam (Unverified Allergy, Mild, PT TAKE LIBRIUM AT HOME, 09/10/14) PT DOESN'T WANT TO TAKE--SHE STATED IT MADE HER COPD OWRSE. Beta-Blockers (Beta-Adrenergic Bloc (Verified Allergy, Unknown, 09/10/14) Cephalosporins (Verified Allergy, Unknown, HAS RECEIVED CEFEPIME IN PAST W /O PROBLEM, 09/14/14) Penicillins (Verified Allergy, Unknown, HAS REC AZACTAM IN PAST WITHOUT PROBLEMS, 09/10/14) risedronic acid (Verified Allergy, Unknown, 09/10/14) prednisone (Unverified Adverse Reaction, Intermediate, Large doses cause SOA, 09/10/14) meperidine (Unverified Adverse Reaction, Mild, NAUSEA, 09/10/14) propofol (Unverified Adverse Reaction, Mild, 09/10/14) PT DOES NOT WANT TO TAKE--SHE STATES IT MADE HER COPD WORSE erythromycin base (Verified Adverse Reaction, Unknown, MAKES PATIENT NAUSEADED, 09/10/14) Home Medications Albuterol Sulfate 2.5 Mg/3 Ml Vial.neb, 2.5 MG NEB Q3H PRN for SHORTNESS OF BREATH, (Reported) Albuterol Sulfate 1 Puff Puff, 2 PUFF IH Q4H PRN for SHORTNESS OF BREATH, ( Reported) 1 PUFF = 90 MCG Aspirin 81 Mg Tabec, 81 MG PO DAILY, (Reported) Carboxymethylcellulos/Glycerin 15 Ml Drops, 1 DROP OU TID, (Reported) Chlordiazepoxide HCl 25 Mg Capsule, 25 MG PO BID, (Reported) Dexamethasone 4 Mg Tablet, 4 MG PO BID BID for 3days then 4mg daily for 3 days then 2mg daily for 3 days then stop Prescribed by: MELODY MCGEE on 05/13/17 1314 Digoxin 125 Mcg Tablet, 62.5 MG PO DAILY, (Reported) TAKES 1/2 OF A (125 MCG) TABLET Diltiazem HCl 120 Mg Cap.er.24h, 120 MG PO DAILY, (Reported) Famotidine 20 Mg Tablet, 20 MG PO BID, (Reported) Fluticasone/Salmeterol 1 Disk Inhp, 1 PUFF IH BID, (Reported) Furosemide 20 Mg Tablet, 20 MG PO DAILY, (Reported) Hydroxyzine HCl 10 Mg Tablet, 10 MG PO HS, (Reported) L.acidoph & Paracasei,B.lactis 1 Each Capsule, 1-2 CAP PO DAILY PRN for DIARRHEA , (Reported) Losartan Potassium 50 Mg Tablet, 50 MG PO BID, (Reported) Methylprednisolone 4 Mg Tab.ds.pk, 4 MG PO UD Prescribed by: JH GARCIA on 04/25/18 1124 Mirtazapine 30 Mg Tablet, 30 MG PO HS, (Reported) Josse/Polymyx B Sulf/Dexameth 3.5 Gm Oint...g., OU TWICE WEEKLY, (Reported) Nystatin 100,000 Unit/1 Ml Oral.susp, 5 ML PO QID Swish and gargle for 30 seconds, then swallow. Prescribed by: JH GARCIA on 04/25/18 1124 Potassium Chloride 10 Meq Tablet.er, 10 MEQ PO DAILY, (Reported) Sennosides/Docusate Sodium 1 Each Tablet, 2 TAB PO DAILY PRN for CONSTIPATION- 6TH LINE, (Reported) Simvastatin 40 Mg Tablet, 40 MG PO HS, (Reported) Tiotropium [place] 1 Inh Aerp, 1 CAP IH DAILY, (Reported) Patient Home Medication List Home Medication List Reviewed: Yes Review of Systems Constitutional: no symptoms reported EENTM: no symptoms reported Respiratory: see HPI Cardiovascular: no symptoms reported Gastrointestinal: see HPI Genitourinary: no symptoms reported : No Musculoskeletal: see HPI Skin: no symptoms reported Psychiatric/Neurological: No Symptoms Reported Hematologic/Lymphatic: No Symptoms Reported Immunological/Allergic: no symptoms reported Past Wmhxupu-Lmjcoc-Mdhgrp Hx Past Med/Social Hx: Reviewed Nursing Past Med/Soc Hx Patient Social History Type Used: Cigarettes Former Smoker, Quit: Apr 12, 2006 2nd Hand Smoke Exposure: No Recent Foreign Travel: No Contact w/Someone Who Travel: No Recent Infectious Disease Expo: No Recent Hopitalizations: No Immunizations Up To Date Tetanus Booster (TDap): More than 5yrs PED Vaccines UTD: Yes Date of Pneumonia Vaccine: Jul 09, 2012 Date of Influenza Vaccine: Aug 04, 2016 Seasonal Allergies Seasonal Allergies: Yes Past Medical History Surgeries: Yes (thoracotomy) Appendectomy, Gallbladder, Tonsillectomy Respiratory: Yes (HOME O2 AT 2L) Pneumonia, COPD, Emphysema Currently Using CPAP: No Currently Using BIPAP: No Cardiac: Yes (ISCHEMIC CARDIOMYOPATHY) Atrial Fibrillation, Hypertension Neurological: No Reproductive Disorders: No Female Reproductive Disorders: Denies Sexually Transmitted Disease: No HIV/AIDS: No Genitourinary: No Gastrointestinal: Yes Gastroesophageal Reflux, Diverticulosis, Hemorrhoids, Hiatal Hernia, Gall Bladder Disease Musculoskeletal: Yes Arthritis Endocrine: No HEENT: Yes (cataract removal) Cataract Loss of Vision: Denies Hearing Impairment: Hard of Hearing Cancer: No Psychosocial: Yes Anxiety, PTSD Integumentary: No Blood Disorders: No Adverse Reaction/Blood Tranf: No Family Medical History Alcoholism SONS Asthma DAUGHTER SONS Cardiovascular disease 19 MOTHER Cataracts 19 MOTHER Deafness or hearing loss G8 SISTER Diabetes mellitus SONS Gastroenteritis SONS Headache disorder SONS Hypertension SONS Myocardial infarction 19 FATHER Psychosocial problem 19 MOTHER No Family History of: AIDS Abdominal aortic aneurysm Joey's disease Alzheimer's disease Aphasia Arthritis Cancer of mouth Colon cancer Completed stroke Congenital disease Congenital heart disease Coronary thrombosis Cystic fibrosis Dementia Drug abuse Dysphasia Fibrocystic disease of breast Glaucoma Hypercholesterolemia Infertility Kidney disease Neoplasm Not obtainable due to adoption Osteoporosis Parkinson's disease Prostate cancer Respiratory disorder Seizure disorder Severe allergy Thyroid disease Tuberculosis Visual disorder No Pertinent Family Hx Physical Exam Vital Signs Vital Signs - First Documented 04/25/18 09:02 Temp 97.7 Pulse 95 Resp 18 B/P (MAP) 138/77 (97) Pulse Ox 96 Capillary Refill : Less Than 3 Seconds General Appearance: WD/WN, Mild Distress HEENT: PERRL/EOMI, Normal ENT Inspection, Pharynx Normal Neck: Normal Inspection Respiratory: Chest Non Tender, Lungs Clear, No Accessory Muscle Use, No Respiratory Distress, Decreased Breath Sounds Cardiovascular: No Edema, No Murmur, Irregularly Irregular Gastrointestinal: Normal Bowel Sounds, Non Tender, Soft Extremity: Normal Capillary Refill, Normal Inspection Neurologic/Psychiatric: Alert, Oriented x3, No Motor/Sensory Deficits, Normal Mood/Affect, business banking sales assistant II-XII Norm as Tested Skin: Normal Color, Warm/Dry Progress/Results/Core Measures Suspected Sepsis Recent Fever Within 48 Hours: No Infection Criteria Present: None New/Unexplained Altered Menta: No Sepsis Screen: No Definite Risk SIRS Temperature:97.7 Pulse: 95 Respiratory Rate: 18 Blood Pressure 138 /77 Mean: 97 Results/Orders Lab Results Laboratory Tests Test 04/25/18 09:15 Range/Units Urine Color YELLOW Urine Clarity CLEAR Urine pH 7 5-9 Urine Specific [place] 1.010 L 1.016-1.022 Urine Protein 2+ H NEGATIVE Urine Glucose (UA) NEGATIVE NEGATIVE Urine Ketones NEGATIVE NEGATIVE Urine Nitrite NEGATIVE NEGATIVE Urine Bilirubin NEGATIVE NEGATIVE Urine Urobilinogen NORMAL NORMAL MG/DL Urine Leukocyte Esterase NEGATIVE NEGATIVE Urine RBC (Auto) 2+ H NEGATIVE Urine RBC 0-2 /HPF Urine WBC NONE /HPF Urine Squamous Epithelial Cells RARE /HPF Urine Crystals NONE /LPF Urine Bacteria NEGATIVE /HPF Urine Casts NONE /LPF Urine Mucus NEGATIVE /LPF Urine Culture Indicated NO My Orders Orders - JH HERMOSILLO MD Ua Culture If Indicated (04/25/18 09:02) Ekg Tracing (04/25/18 10:01) Chest Pa/Lat (2 View) (04/25/18 10:01) Vital Signs/I&O Capillary Refill : Less Than 3 Seconds Blood Pressure Mean: 97 Progress Note : Progress Note Patient has a distant history of A. fib. She is not presently anticoagulated. Irregular rhythm was noted on exam. EKG was obtained and showed sinus rhythm with PVCs. X-ray was obtained. No evidence of pneumonia was present. Pain seems to be pleuritic in nature. Patient was offered steroid therapy and requested nystatin to accompany the steroids. Prescriptions were provided. ECG Initial ECG Impression Date: Apr 25, 2018 Initial ECG Impression Time: 10:19 Initial ECG Rate: 88 Initial ECG Comparisson: Unchanged Comment Sinus rhythm with no ST elevation. Multiple PVCs noted. Subtle ST depression was similar to prior. No axis deviation. Diagnostic Imaging Diagonstic Imaging: Xray Plain Films/CT/US/NM/MRI: chest Comments Chest x-rays viewed by me and compared with prior. Report reviewed. See report below: NAME: [facility] REC#: [id number] PT STATUS: DEP ER : 1940 PHYSICIAN: JH HERMOSILLO MD ADMIT DATE: 04/25/18/ER Signed Date of Exam: 04/25/18 CHEST PA/LAT (2 VIEW) Indication: Pain Comparison: 04/16/2018 Findings: Two views of the chest were obtained. Heart size is normal. The pulmonary vessels appear unremarkable. No pneumothorax, mediastinal widening or pleural fluid suspected. Chronic fibrotic-appearing changes seen within the lung apices bilaterally, appear similar to the prior study. Some chronic blunting of the left costophrenic angle is unchanged. No pleural fluid is suspected. There are chronic findings of COPD. Some scarring at the lung bases is also unchanged. No new pleural or parenchymal abnormality is suspected. Impression: Chronic findings of COPD and coarse fibrotic scarring in the lung apices bilaterally appear similar to the prior study. No new or acute abnormality is suspected. Dictated by: Dictated on workstation # [id number] Dict: 04/25/18 1024 Trans: 04/25/18 1323 Interpreted by: KAELA SWENSON DO Electronically signed by: KAELA SWENSON DO 04/25/18 1323 Departure Impression Primary Impression: Pleuritic chest pain Disposition: 01 HOME, SELF-CARE Condition: Stable Departure-Patient Inst. Decision time for Depature: 11:18 Referrals: MELODY MCGEE DO (PCP/Family) Primary Care Physician Patient Instructions: Chest Pain That Is Not Caused by the Heart (DC) Add. Discharge Instructions: You may continue taking Tylenol (acetaminophen) up to 650 mg every 6 hours as needed for pain. If necessary, fill the methylprednisolone prescription along with the nystatin prescription provided. Return to care if symptoms are worsening or if you develop new symptoms such as fever. Follow-up with your primary care provider if this pain does not resolve in the next couple of days. All discharge instructions reviewed with patient and/or family. Voiced understanding. Scripts Methylprednisolone (Methylprednisolone) 4 Mg Tab.ds.pk 4 MG PO UD, #1 PKG Prov: JH HERMOSILLO MD 04/25/18 Nystatin (Nystatin) 100,000 Unit/1 Ml Oral.susp 5 ML PO QID, #100 ML Swish and gargle for 30 seconds, then swallow. Prov: JH HERMOSILLO MD 04/25/18 Copy Copies To 1: MELODY MCGEE JOSHUA T MD Apr 25, 2018 10:16
--- NOTE | 2018-04-25 10:28 | Diagnostic Imaging Report ---
Indication: Pain Comparison: 04/16/2018 Findings: Two views of the chest were obtained. Heart size is normal. The pulmonary vessels appear unremarkable. No pneumothorax, mediastinal widening or pleural fluid suspected. Chronic fibrotic-appearing changes seen within the lung apices bilaterally, appear similar to the prior study. Some chronic blunting of the left costophrenic angle is unchanged. No pleural fluid is suspected. There are chronic findings of COPD. Some scarring at the lung bases is also unchanged. No new pleural or parenchymal abnormality is suspected. Impression: Chronic findings of COPD and coarse fibrotic scarring in the lung apices bilaterally appear similar to the prior study. No new or acute abnormality is suspected. Dictated by: Dictated on workstation # [id number]
[2018-04-25] MEDS ORDERED: METH4TAB10 PO (11:24)
[2018-04-25] MEDS ORDERED: NYST1000 PO (11:24)
[2018-04-25 11:36] VITALS: BP 138/77
== END 2018-04-25 11:35 | disposition home or self-care (01) ==
LOC: EDUNIT# 08:53 → ER 08:55
DX: R07.81 Pleurodynia (principal); I48.91 Unspecified atrial fibrillation; J43.9 Emphysema, unspecified; I10 Essential (primary) hypertension; K21.9 Gastro-esophageal reflux disease without esophagitis; F41.9 Anxiety disorder, unspecified; F43.10 Post-traumatic stress disorder, unspecified; Z90.49 Acquired absence of other specified parts of digestive tract; Z88.0 Allergy status to penicillin; Z88.5 Allergy status to narcotic agent; Z88.1 Allergy status to other antibiotic agents; Z87.891 Personal history of nicotine dependence; Z87.19 Personal history of other diseases of the digestive system
CPT/HCPCS: 71046; 81000; 93005

== ENCOUNTER → 2018-05-26 | Outpatient (CLI) | payer MEDICARE ==
[~2018-05-26] MED LIST changes: +METH4TAB10 PO; +NYST1000 PO
== END ==
LOC: CARD 08:26
PROVIDERS: ATTEND Internal Medicine Cardiovascular Disease
DX: I42.0 Dilated cardiomyopathy (principal); R00.2 Palpitations; J44.9 Chronic obstructive pulmonary disease, unspecified; I25.10 Atherosclerotic heart disease of native coronary artery without angina pectoris; I77.89 Other specified disorders of arteries and arterioles; N18.9 Chronic kidney disease, unspecified; I47.1 Supraventricular tachycardia
CPT/HCPCS: 93225; 93226

== ENCOUNTER 2018-12-05 16:07 | Inpatient (IN) | payer MEDICARE ==
[2018-12-05] VITALS (8 sets, daily range): BP systolic 93–115; BP diastolic 56–67
[~2018-12-05] VITALS: Ht 152.4 cm; Wt 60.2 kg
[~2018-12-05 16:07] MED LIST changes: -LOSA50TA36 PO; +LOSA50TA63 PO
[2018-12-05] MEDS ORDERED: TETANUS,DIPTH,PERTUSS P/F (BOOSTRIX) 0.5 ML VIAL IM ONE (16:23)
--- NOTE | 2018-12-05 16:35 | ED Fall/Injury ---
General Stated Complaint: FALL Source: patient, EMS Exam Limitations: no limitations History of Present Illness Date Seen by Provider: Dec 05, 2018 Time Seen by Provider: 16:06 Initial Comments Patient presents ER by EMS with chief complaint she was going to her car from the parking [place] of [employer] [place] [facility] [place] her door knocking her down to the ground. She did not strike her head nor lose consciousness but does have some abrasions on both knees and a large hematoma on the left knee. She has a large skin tear on her left forearm that was dressed by EMS. She has some bruising on her right hand. She takes a full dose aspirin but no other blood thinners. She drove herself home from [employer] after the fall but then couldn't get the bleeding to stop in her arm so she called the ambulance. She uses oxygen at baseline 3 L/m. She denies shortness of breath, wheezing. She is having some substernal chest pain and has a history of heart attack. The pain came after the fall. She says it just feels like some tightness mild. She did already take her aspirin today. Allergies and Home Medications Allergies Coded Allergies: diphenhydramine HCl (Unverified Allergy, Severe, anaphalaxis, 09/10/14) Pt states this happened several yrs ago and that she had almost forgotten about it because she has avoided t for so long. fentanyl (Unverified Allergy, Mild, 09/10/14) PT DOES NOT WANT TO TAKE--SHE STAES IT MADE HER COPD WORSE midazolam (Unverified Allergy, Mild, PT TAKE LIBRIUM AT HOME, 09/10/14) PT DOESN'T WANT TO TAKE--SHE STATED IT MADE HER COPD OWRSE. Beta-Blockers (Beta-Adrenergic Bloc (Verified Allergy, Unknown, 09/10/14) Cephalosporins (Verified Allergy, Unknown, HAS RECEIVED CEFEPIME IN PAST W /O PROBLEM, 09/14/14) Penicillins (Verified Allergy, Unknown, HAS REC AZACTAM IN PAST WITHOUT PROBLEMS, 09/10/14) risedronic acid (Verified Allergy, Unknown, 09/10/14) prednisone (Unverified Adverse Reaction, Intermediate, Large doses cause SOA, 09/10/14) meperidine (Unverified Adverse Reaction, Mild, NAUSEA, 09/10/14) propofol (Unverified Adverse Reaction, Mild, 09/10/14) PT DOES NOT WANT TO TAKE--SHE STATES IT MADE HER COPD WORSE erythromycin base (Verified Adverse Reaction, Unknown, MAKES PATIENT NAUSEADED, 09/10/14) Home Medications Albuterol Sulfate 2.5 Mg/3 Ml Vial.neb, 2.5 MG NEB Q3H PRN for SHORTNESS OF BREATH, (Reported) Albuterol Sulfate 1 Puff Puff, 2 PUFF IH Q4H PRN for SHORTNESS OF BREATH, ( Reported) 1 PUFF = 90 MCG Aspirin 81 Mg Tabec, 81 MG PO DAILY, (Reported) Carboxymethylcellulos/Glycerin 15 Ml Drops, 1 DROP OU TID, (Reported) Chlordiazepoxide HCl 25 Mg Capsule, 25 MG PO BID, (Reported) Dexamethasone 4 Mg Tablet, 4 MG PO BID BID for 3days then 4mg daily for 3 days then 2mg daily for 3 days then stop Prescribed by: MELODY PAZ on 05/13/17 1314 Digoxin 125 Mcg Tablet, 62.5 MG PO DAILY, (Reported) TAKES 1/2 OF A (125 MCG) TABLET Diltiazem HCl 120 Mg Cap.er.24h, 120 MG PO DAILY, (Reported) Famotidine 20 Mg Tablet, 20 MG PO BID, (Reported) Fluticasone/Salmeterol 1 Disk Inhp, 1 PUFF IH BID, (Reported) Furosemide 20 Mg Tablet, 20 MG PO DAILY, (Reported) Hydroxyzine HCl 10 Mg Tablet, 10 MG PO HS, (Reported) L.acidoph & Paracasei,B.lactis 1 Each Capsule, 1-2 CAP PO DAILY PRN for DIARRHEA , (Reported) Losartan Potassium 50 Mg Tablet, 50 MG PO BID, (Reported) Methylprednisolone 4 Mg Tab.ds.pk, 4 MG PO UD Prescribed by: JH GARICA on 04/25/18 1124 Mirtazapine 30 Mg Tablet, 30 MG PO HS, (Reported) Josse/Polymyx B Sulf/Dexameth 3.5 Gm Oint...g., OU TWICE WEEKLY, (Reported) Nystatin 100,000 Unit/1 Ml Oral.susp, 5 ML PO QID Swish and gargle for 30 seconds, then swallow. Prescribed by: JH GARCIA on 04/25/18 1124 Potassium Chloride 10 Meq Tablet.er, 10 MEQ PO DAILY, (Reported) Sennosides/Docusate Sodium 1 Each Tablet, 2 TAB PO DAILY PRN for CONSTIPATION- 6TH LINE, (Reported) Simvastatin 40 Mg Tablet, 40 MG PO HS, (Reported) Tiotropium [place] 1 Inh Aerp, 1 CAP IH DAILY, (Reported) Patient Home Medication List Home Medication List Reviewed: Yes Review of Systems Review of Systems Constitutional: No chills, No diaphoresis Eyes: Denies Blindness, Denies Blurred Vision, Denies Pain Ears, Nose, Mouth, Throat: denies ear pain, denies ear discharge Respiratory: No cough, No short of breath Cardiovascular: see HPI, chest pain; No edema Gastrointestinal: No abdominal pain, No constipation, No diarrhea, No nausea Genitourinary: No discharge, No dysuria Musculoskeletal: No back pain, No joint pain Past Hrturbn-Zaudjx-Ubqzwg Hx Patient Social History Alcohol Use: Denies Use Recreational Drug Use: No Smoking Status: Former Smoker Type Used: Cigarettes Former Smoker, Quit: Apr 12, 2006 2nd Hand Smoke Exposure: No Recent Foreign Travel: No Contact w/Someone Who Travel: No Recent Hopitalizations: No Immunizations Up To Date Tetanus Booster (TDap): More than 5yrs PED Vaccines UTD: Yes Date of Pneumonia Vaccine: Jul 09, 2012 Date of Influenza Vaccine: Aug 04, 2016 Seasonal Allergies Seasonal Allergies: Yes Past Medical History Surgeries: Yes (thoracotomy) Appendectomy, Gallbladder, Tonsillectomy Respiratory: Yes (HOME O2 AT 2L) Pneumonia, COPD, Emphysema Currently Using CPAP: No Currently Using BIPAP: No Cardiac: Yes (ISCHEMIC CARDIOMYOPATHY) Atrial Fibrillation, Hypertension Neurological: No Reproductive Disorders: No Female Reproductive Disorders: Denies Sexually Transmitted Disease: No HIV/AIDS: No Genitourinary: No Gastrointestinal: Yes Gastroesophageal Reflux, Diverticulosis, Hemorrhoids, Hiatal Hernia, Gall Bladder Disease Musculoskeletal: Yes Arthritis Endocrine: No HEENT: Yes (cataract removal) Cataract Loss of Vision: Denies Hearing Impairment: Hard of Hearing Cancer: No Psychosocial: Yes Anxiety, PTSD Integumentary: No Blood Disorders: No Adverse Reaction/Blood Tranf: No Family Medical History Alcoholism SONS Asthma DAUGHTER SONS Cardiovascular disease 19 MOTHER Cataracts 19 MOTHER Deafness or hearing loss G8 SISTER Diabetes mellitus SONS Gastroenteritis SONS Headache disorder SONS Hypertension SONS Myocardial infarction 19 FATHER Psychosocial problem 19 MOTHER No Family History of: AIDS Abdominal aortic aneurysm [place]'s disease Alzheimer's disease Aphasia Arthritis Cancer of mouth Colon cancer Completed stroke Congenital disease Congenital heart disease Coronary thrombosis Cystic fibrosis Dementia Drug abuse Dysphasia Fibrocystic disease of breast Glaucoma Hypercholesterolemia Infertility Kidney disease Neoplasm Not obtainable due to adoption Osteoporosis Parkinson's disease Prostate cancer Respiratory disorder Seizure disorder Severe allergy Thyroid disease Tuberculosis Visual disorder No Pertinent Family Hx Physical Exam Vital Signs Vital Signs - First Documented 12/05/18 16:07 Pulse 112 Resp 21 B/P (MAP) 122/98 (106) Pulse Ox 99 O2 Delivery Nasal Cannula O2 Flow Rate 3.00 Capillary Refill : Height, Weight, BMI Height: 5'0" Weight: 105lbs. 0oz. 47.857699bn; 20.9 BMI Method:Stated General Appearance: WD/WN, no apparent distress HEENT: PERRL/EOMI, normal ENT inspection, TMs normal, pharynx normal, other ( atraumatic head, negative for hemotympanum, raccoon eyes or Cooper sign.) Neck: non-tender, full range of motion, supple, normal inspection Cardiovascular: normal peripheral pulses, regular rate, rhythm, no edema, no murmur Respiratory: chest non-tender, lungs clear, normal breath sounds, no respiratory distress, no accessory muscle use Gastrointestinal: normal bowel sounds, non tender, soft Neurologic/Psychiatric: production tester II-XII nml as tested, no motor/sensory deficits, alert, normal mood/affect, oriented x 3, other (normal gait) Skin: normal color, warm/dry [place] Coma Score Best Eye Response: (4) Open Spontaneously Best Verbal Response: (5) Oriented Best Motor Response: (6) Obeys Commands [place] Total: 15 Progress/Results/Core Measures Results/Orders Lab Results Laboratory Tests Test 12/05/18 17:20 12/05/18 17:41 Range/Units White Blood Count 12.4 H 4.3-11.0 10^3/uL Red Blood Count 3.90 L 4.35-5.85 10^6/uL Hemoglobin 12.2 11.5-16.0 G/DL Hematocrit 37 35-52 % Mean Corpuscular Volume 96 80-99 FL Mean Corpuscular Hemoglobin 31 25-34 PG Mean Corpuscular Hemoglobin Concent 33 32-36 G/DL Red Cell Distribution Width 13.3 10.0-14.5 % Platelet Count 353 130-400 10^3/uL Mean Platelet Volume 8.5 7.4-10.4 FL Neutrophils (%) (Auto) 73 42-75 % Lymphocytes (%) (Auto) 14 12-44 % Monocytes (%) (Auto) 10 0-12 % Eosinophils (%) (Auto) 4 0-10 % Basophils (%) (Auto) 0 0-10 % Neutrophils # (Auto) 9.0 H 1.8-7.8 X 10^3 Lymphocytes # (Auto) 1.7 1.0-4.0 X 10^3 Monocytes # (Auto) 1.2 H 0.0-1.0 X 10^3 Eosinophils # (Auto) 0.4 H 0.0-0.3 10^3/uL Basophils # (Auto) 0.1 0.0-0.1 10^3/uL Prothrombin Time 12.4 12.2-14.7 SEC INR Comment 0.9 0.8-1.4 Activated Partial Thromboplast Time 33 24-35 SEC Sodium Level 140 135-145 MMOL/L Potassium Level 4.8 3.6-5.0 MMOL/L Chloride Level 101 98-107 MMOL/L Carbon Dioxide Level 28 21-32 MMOL/L Anion Gap 11 5-14 MMOL/L Blood Urea Nitrogen 27 H 7-18 MG/DL Creatinine 1.53 H 0.60-1.30 MG/DL Estimat Glomerular Filtration Rate 33 BUN/Creatinine Ratio 18 Glucose Level 135 H 70-105 MG/DL Calcium Level 9.9 8.5-10.1 MG/DL Corrected Calcium 9.6 8.5-10.1 MG/DL Total Bilirubin 0.3 0.1-1.0 MG/DL Aspartate Amino Transf (AST/SGOT) 29 5-34 U/L Alanine Aminotransferase (ALT/SGPT) 21 0-55 U/L Alkaline Phosphatase 69 40-136 U/L Myoglobin 447.4 H 10.0-92.0 NG/ML Troponin I 0.529 *H <0.028 NG/ML Total Protein 7.8 6.4-8.2 GM/DL Albumin 4.4 3.2-4.5 GM/DL Urine Color YELLOW Urine Clarity SLIGHTLY CLOUDY Urine pH 6 5-9 Urine Specific [place] 1.015 L 1.016-1.022 Urine Protein 3+ H NEGATIVE Urine Glucose (UA) NEGATIVE NEGATIVE Urine Ketones NEGATIVE NEGATIVE Urine Nitrite NEGATIVE NEGATIVE Urine Bilirubin NEGATIVE NEGATIVE Urine Urobilinogen NORMAL NORMAL MG/DL Urine Leukocyte Esterase 3+ H NEGATIVE Urine RBC (Auto) 2+ H NEGATIVE Urine RBC RARE /HPF Urine WBC 10-25 H /HPF Urine Squamous Epithelial Cells RARE /HPF Urine Crystals NONE /LPF Urine Bacteria TRACE /HPF Urine Casts PRESENT /LPF Urine Hyaline Casts RARE /LPF Urine Mucus NEGATIVE /LPF Urine Culture Indicated YES My Orders Orders - DANNIELLE AGGARWAL Ct Head/Cervical Spine Wo (12/05/18 16:13) Cbc With Automated Diff (12/05/18 16:13) Comprehensive Metabolic Panel (12/05/18 16:13) Ua Culture If Indicated (12/05/18 16:13) Forearm, Left, 2 Views (12/05/18 16:13) Knee, Left, 3 Views (12/05/18 16:13) Dipht,Pertuss(Acell),Tet Adult (Boostrix (12/05/18 16:23) Wrist, Right, 3 Views Or More (12/05/18 16:35) Troponin I (12/05/18 16:37) Saline Lock/Iv-Start (12/05/18 16:40) Ns Iv 500 Ml (Sodium Chloride 0.9%) (12/05/18 16:40) Chest Pa/Lat (2 View) (12/05/18 17:03) Ct Chest Wo (12/05/18 16:37) Urine Culture (12/05/18 17:41) Sulfamethoxazole/Trimet Ds Tab (Bactrim (12/05/18 18:30) Protime With Inr (12/05/18 18:40) Partial Thromboplastin Time (12/05/18 18:40) Myoglobin Serum (12/05/18 18:40) Heparin Drip 36573 Unit/500ml (Heparin (12/05/18 18:40) Heparin (Bolus Per Protocol) (Heparin (B (12/05/18 18:40) Ticagrelor Tablet (Brilinta Tablet) (12/05/18 18:45) Acetaminophen Tablet/Caplet (Tylenol T (12/05/18 19:15) Medications Given in ED Current Medications Medications Dose Ordered Sig/German Route Start Time Stop Time Status Last Admin Dose Admin Diphtheria/ Tetanus/Acell Pertussis 0.5 ml STK-MED ONCE IM 12/05/18 16:23 12/05/18 16:27 DC 12/05/18 16:35 0.5 ML Vital Signs/I&O 12/05/18 16:07 Pulse 112 Resp 21 B/P (MAP) 122/98 (106) Pulse Ox 99 O2 Delivery Nasal Cannula O2 Flow Rate 3.00 Progress Progress Note : Time: 16:59 Progress Note Plan to get a CT of the head and neck and since she's having progressively worsening tightness and chest pain we will obtain a CT with contrast of the chest as well. Her abdomen is soft, benign on clinical exam. She's not having any nausea vomiting or further evidence of concussion. Atraumatic head. She had a large 6 cm curvilinear skin tear that was not bleeding on the left forearm. We tried to stitching with suture unsuccessfully and so ended up using Steri- Strips instead. The rest of the skin tears on her knees bilaterally and right arm and left arm where just dressed and [place] for some compression. Neurologically she is sensory and motor intact all 4 extremities. Her chest wall and ribs are nontender to palpation. Her increasing tightness does not correlate with any wheezing or dyspnea or decreased oxygen saturations. She is about 100% on 3 L by nasal cannula. Other possibilities include a lung contusion , less likely rib fracture, pneumothorax, mediastinal hemorrhage, pericardial contusion Etc. Her blood pressure is okay without narrowing pulse pressure making a tamponade less likely. Echocardiogram [address] Soto EF of 55-60% with grade 1 diastolic dysfunction. Cardiac catheterization [address] Soto demonstrating angiographically mild coronary artery disease with a left ventricular ejection fraction of 30% and diaphragmatic and anterolateral akinesis. Moderate elevation of left ventricular end-diastolic pressure indicative of diastolic dysfunction of the left ventricle. Initial ECG Impression Date: Dec 05, 2018 Initial ECG Impression Time: 16:11 Initial ECG Rate: 112 Initial ECG Rhythm: Normal Sinus Initial ECG Intervals: Normal Initial ECG Impression: Normal Comment No significant ST wave elevation or depression. Diagnostic Imaging Diagonstic Imaging: Xray Plain Films/CT/US/NM/MRI: chest (2v) Comments No acute osseous fracture. Chronic scarring seen 7 months ago on chest x-ray with no other acute cardiopulmonary process noted. [facility] [place] [place] NAME: HAI HARGROVE [facility] REC#: [id number] PT STATUS: REG ER : 1940 PHYSICIAN: DANNIELLE AGGARWAL MD ADMIT DATE: 12/05/18/ER Draft Date of Exam:12/05/18 CHEST PA/LAT (2 VIEW) INDICATION: Fall with chest pain PA and lateral chest obtained at 4:48 p.m. and compared with 04/25/2018. There is marked COPD change with hyperinflation. There is parenchymal scarring in both apices, left greater than right, which appears similar to 04/25/2018. There are increased markings in the right medial base which are also unchanged. There is no pneumothorax or pleural fluid. There is chronic blunting of the left costophrenic angle. IMPRESSION: COPD changes and chronic scarring, with findings appearing similar to the previous study of 04/25/2018. No definite acute finding. Dictated on workstation # [id number] Dict: 12/05/18 1707 Trans: 12/05/18 1718 [id number] Interpreted by: AMINA CORONADO MD Electronically signed by: Reviewed: Reviewed by Me Diagonstic Imaging: Xray Plain Films/CT/US/NM/MRI: forearm (l) Comments No acute osseous abnormality's. NAME: HAI HARGROVE [facility] REC#: [id number] PHYSICIAN: DANNIELLE AGGARWAL MD CC: AMINA CORONADO MD; DANNIELLE AGGARWAL Page 1 of 1 RADIOLOGY REPORT [facility] [place] CC: AMINA CORONADO MD; DANNIELLE AGGARWAL Page 1 of 1 RADIOLOGY REPORT NAME: HAI HARGROVE [facility] REC#: [id number] PT STATUS: REG ER : 1940 PHYSICIAN: DANNIELLE AGGARWAL MD ADMIT DATE: 12/05/18/ER Signed Date of Exam: 12/05/18 FOREARM, LEFT, 2 VIEWS EXAMINATION: Left forearm. INDICATION: AP and lateral views of the left forearm are obtained. No fracture or acute bony abnormality is seen. IMPRESSION: Negative left forearm. Report faxed to Dr. Aggarwal at 5:13 p.m. 12/05/2018/cb Dictated by: Dictated on workstation # [id number] Dict: 12/05/181703 Trans: 12/05/181715 Interpreted by: AMINA CORONADO MD Electronically signed by: AMINA CORONADO MD 12/05/181715 Reviewed: Reviewed by Me Diagonstic Imaging: Xray Plain Films/CT/US/NM/MRI: hand (right wrist) Comments No acute osseous abnormalities. NAME: HAI HARGROVE [facility] REC#: [id number] PHYSICIAN: DANNIELLE AGGARWAL MD CC: AMINA CORONADO MD; DANNIELLE AGGARWAL Page 1 of 1 RADIOLOGY REPORT [facility] [place] [place] CC: AMINA CORONADO MD; DANNIELLE AGGARWAL Page 1 of 1 RADIOLOGY REPORT NAME: HAI HARGROVE [facility] REC#: [id number] PT STATUS: REG ER : 1940 PHYSICIAN: DANNIELLE AGGARWAL MD ADMIT DATE: 12/05/18/ER Signed Date of Exam: 12/05/18 WRIST, RIGHT, 3 VIEWS OR MORE INDICATION: Fall with right wrist pain. AP, oblique, and lateral views of the right wrist are obtained. No fracture or acute bony abnormality is seen. There is marked degenerative change of the first carpometacarpal joint. IMPRESSION: No acute fracture or acute bony abnormality. Marked degenerative change of the first carpometacarpal joint is noted. Dictated by: Dictated on workstation # [id number] Dict: 12/05/181704 Trans: 12/05/181715 Interpreted by: AMINA CORONADO MD Electronically signed by: AMINA CORONADO MD 12/05/181715 Reviewed: Reviewed by Me Diagonstic Imaging: Xray Plain Films/CT/US/NM/MRI: knee Comments Medial hematoma seen. No acute osseous abnormalities noted. NAME: HAI HARGROVE [facility] REC#: [id number] PHYSICIAN: DANNIELLE AGGARWAL MD CC: AMINA CORONADO MD; DANNIELLE AGGARWAL Page 1 of 1 RADIOLOGY REPORT [facility] [place] [place] CC: AMINA CORONADO MD; DANNIELLE AGGARWAL Page 1 of 1 RADIOLOGY REPORT NAME: HAI HARGROVE [facility] REC#: [id number] PT STATUS: REG ER : 1940 PHYSICIAN: DANNIELLE AGGARWAL MD ADMIT DATE: 12/05/18/ER Signed Date of Exam: 12/05/18 KNEE, LEFT, 3 VIEWS INDICATION: Fall with injury to left knee. AP, oblique, and lateral views of the left knee are obtained. Soft tissue irregularity is noted above the knee joint level anteriorly. There is no acute fracture or acute bony abnormality. IMPRESSION: No acute fracture or acute bony abnormality of left knee. Soft tissue irregularity noted above the knee joint level anteriorly. Dictated by: Dictated on workstation # [id number] Dict: 12/05/181704 Trans: 12/05/181715 Interpreted by: AMINA CORONADO MD Electronically signed by: AMINA CORONADO MD 12/05/181715 Reviewed: Reviewed by [place] Diagonstic Imaging: CT (without contrast) Plain Films/CT/US/NM/MRI: c-spine, head Comments [facility], [place], [place] NAME: HAI HARGROVE [facility] REC#: [id number] PT STATUS: REG ER : 1940 PHYSICIAN: DANNIELLE AGGARWAL MD ADMIT DATE: 12/05/18/ER Draft Date of Exam:12/05/18 CT HEAD/CERVICAL SPINE WO PROCEDURE: CT head and CT cervical spine without contrast. TECHNIQUE: Multiple contiguous axial images were obtained through the brain and cervical spine without the use of intravenous contrast. Sagittal and coronal reformations through the cervical spine were then performed. INDICATION: Trauma to the head. Head and neck pain. COMPARISON: 03/03/2018 FINDINGS: CT head: The ventricles and cortical sulci are diffusely prominent, compatible with age-related volume loss. There is no midline shift or mass-effect. No acute intra-axial hemorrhage is seen. There are no abnormal areas of increased or decreased density to suggest acute hemorrhage or edema. No extra-axial masses or collections are present. The bony calvarium is intact. The visualized paranasal sinuses are unremarkable. The mastoid air cells are clear. CT cervical spine: Evaluation of static alignment demonstrates mild grade 1 retrolisthesis at C4-C5 and slight grade 1 anterolisthesis of C5-C6. There is no evidence of jumped facets. There is mild image degradation secondary to motion artifact. Vertebral body heights are maintained. There is no convincing evidence of acute fracture of the cervical spine. No bony fragments are seen within the spinal canal. There are moderate multilevel degenerative changes consisting of intervertebral disc height loss with anterior and posterior disc osteophyte complex formations. These changes appear greatest at the C4-C5 and C6-C7 levels. Pre-and paravertebral soft tissue structures are unremarkable. Note is made of calcified carotid atherosclerosis. Included portions of lung apices show chronic appearing fibrotic changes. IMPRESSION: 1. No acute intracranial abnormality. No CT evidence of mass, acute infarct or intracranial hemorrhage. 2. No acute fracture or dislocation of cervical spine. 3. Moderate multilevel degenerative changes of the cervical spine. Dictated on workstation # [id number] Dict: 12/05/181809 Trans: 12/05/181817 [id number] Interpreted by: BILL KENT MD Electronically signed by: Reviewed: Reviewed by [place] Diagonstic Imaging: CT (with contrast) Plain Films/CT/US/NM/MRI: chest Comments [facility] [place] [place] NAME: HAI HARGROVE [facility] REC#: [id number] PT STATUS: REG ER : 1940 PHYSICIAN: DANNIELLE AGGARWAL MD ADMIT DATE: 12/05/18/ER Draft Date of Exam:12/05/18 CT CHEST WO PROCEDURE: CT chest without contrast. TECHNIQUE: Multiple contiguous axial images were obtained through the chest without the use of intravenous contrast. INDICATION: Chest trauma There is bilateral apical scarring. There is a prior CT from 11/12/2017 used for comparison and the areas of scarring are unchanged from the prior study. There are severe emphysematous changes in the lungs. There is no effusion or pneumothorax. There are no displaced rib fractures seen. IMPRESSION: COPD with apical scarring. No change since 11/12/2017. No acute abnormality seen. Dictated on workstation # [id number] Dict: 12/05/18 1813 Trans: 12/05/18 1822 [facility] [id number] Interpreted by: PAUL PECK MD Electronically signed by: Reviewed: Reviewed by Me Consults : Consulting Physician: DIVYA PEREZ MD Consults Notes Discussed the case lab imaging findings with Dr. Perez, trauma surgeon on- call. He agrees with the plan to admit to medicine and have cardiology workup for an STEMI. He does not feel the patient's been admitted for trauma reason but is available for consult if the primary team wants him. The reason for the patient's admission is for the in STEMI and as far as her trauma goes she could be followed up outpatient if she would like. Departure Communication (Admissions) Time/Spoke to Admitting Phy: 19:14 Discussed case lab imaging EKG with Dr. Paz and she agrees to admit the patient for NSTEMI. Time/Spoke to Consulting Phy: 18:35 Dr Cohn: Patient labs imaging EKG discussed. We discussed the catheterization and echocardiogram most recently. He recommends that we put the patient on Brilinta and a heparin drip since it can be reversed quicker if necessary for bleeding. Put some good pressure dressings on the wounds. Turn her over to Dr. Soto in the morning. Impression Primary Impression: NSTEMI (non-ST elevated myocardial infarction) Additional Impressions: Fall Qualified Codes: W19.XXXA - Unspecified fall, initial encounter Skin tear Traumatic hematoma of left knee Qualified Codes: S80.02XA - Contusion of left knee, initial encounter UTI (urinary tract infection) Qualified Codes: N30.00 - Acute cystitis without hematuria COPD (chronic obstructive pulmonary disease) Qualified Codes: J44.9 - Chronic obstructive pulmonary disease, unspecified Disposition: ADMITTED INPATIENT Condition: Stable Admissions Decision to Admit Reason: Admit from ER (General) Decision to Admit/Date: Dec 05, 2018 Time/Decision to Admit Time: 18:08 Departure-Patient Inst. Referrals: MELODY PAZ DO (PCP/Family) Primary Care Physician DANNIELLE AGGARWAL Dec 05, 2018 16:35
[2018-12-05] MEDS ORDERED: NS IV 500 ML 500 ML IV ONE (16:40)
--- NOTE | 2018-12-05 17:13 | Diagnostic Imaging Report ---
INDICATION: Fall with injury to left knee. AP, oblique, and lateral views of the left knee are obtained. Soft tissue irregularity is noted above the knee joint level anteriorly. There is no acute fracture or acute bony abnormality. IMPRESSION: No acute fracture or acute bony abnormality of left knee. Soft tissue irregularity noted above the knee joint level anteriorly. Dictated by: Dictated on workstation # [id number]
--- NOTE | 2018-12-05 17:14 | Diagnostic Imaging Report ---
EXAMINATION: Left forearm. INDICATION: AP and lateral views of the left forearm are obtained. No fracture or acute bony abnormality is seen. IMPRESSION: Negative left forearm. Report faxed to Dr. Aggarwal at 5:13 p.m. 12/05/2018/cb Dictated by: Dictated on workstation # [id number]
--- NOTE | 2018-12-05 17:15 | Diagnostic Imaging Report ---
INDICATION: Fall with right wrist pain. AP, oblique, and lateral views of the right wrist are obtained. No fracture or acute bony abnormality is seen. There is marked degenerative change of the first carpometacarpal joint. IMPRESSION: No acute fracture or acute bony abnormality. Marked degenerative change of the first carpometacarpal joint is noted. Dictated by: Dictated on workstation # [id number]
--- NOTE | 2018-12-05 17:19 | Diagnostic Imaging Report ---
INDICATION: Fall with chest pain PA and lateral chest obtained at 4:48 p.m. and compared with 04/25/2018. There is marked COPD change with hyperinflation. There is parenchymal scarring in both apices, left greater than right, which appears similar to 04/25/2018. There are increased markings in the right medial base which are also unchanged. There is no pneumothorax or pleural fluid. There is chronic blunting of the left costophrenic angle. IMPRESSION: COPD changes and chronic scarring, with findings appearing similar to the previous study of 04/25/2018. No definite acute finding. Dictated by: Dictated on workstation # [id number]
[2018-12-05 17:28] LABS: BASOPHILS # (AUTO) 0.1 10^3/uL (0.0-0.1); BASOPHILS % (AUTO) 0 % (0-10); EOSINOPHILS # (AUTO) 0.4 10^3/uL (0.0-0.3); EOSINOPHILS % (AUTO) 4 % (0-10); HEMATOCRIT 37 % (35-52); HEMOGLOBIN 12.2 G/DL (11.5-16.0); LYMPHOCYTES # (AUTO) 1.7 X 10^3 (1.0-4.0); LYMPHOCYTES % (AUTO) 14 % (12-44); MEAN CORPUSCULAR HEMOGLOBIN 31 PG (25-34); MEAN CORPUSCULAR HGB CONC 33 G/DL (32-36); MEAN CORPUSCULAR VOLUME 96 FL (80-99); MEAN PLATELET VOLUME 8.5 FL (7.4-10.4); MONOCYTES # (AUTO) 1.2 X 10^3 (0.0-1.0); MONOCYTES % (AUTO) 10 % (0-12); NEUTROPHILS % (AUTO) 73 % (42-75); PLATELET COUNT 353 10^3/uL (130-400); RED CELL DISTRIBUTION WIDTH 13.3 % (10.0-14.5); WHITE BLOOD COUNT 12.4 10^3/uL (4.3-11.0)
[2018-12-05 17:48] LABS: ALBUMIN 4.4 GM/DL (3.2-4.5); BILIRUBIN,TOTAL 0.3 MG/DL (0.1-1.0); CALCIUM 9.9 MG/DL (8.5-10.1); CREATININE SERUM 1.53 MG/DL (0.60-1.30); POTASSIUM 4.8 MMOL/L (3.6-5.0); TOTAL PROTEIN 7.8 GM/DL (6.4-8.2)
[2018-12-05 17:50] LABS: BILIRUBIN,URINE NEGATIVE (NEGATIVE); CLARITY,URINE SLIGHTLY CLOUDY; COLOR,URINE YELLOW; GLUCOSE, URINE (UA) NEGATIVE (NEGATIVE); KETONES,URINE NEGATIVE (NEGATIVE); LEUKOCYTE ESTERASE ,URINE 3+ (NEGATIVE); NITRITE,URINE NEGATIVE (NEGATIVE); PH,URINE 6 (5-9); PROTEIN,URINE 3+ (NEGATIVE); UROBILINOGEN,URINE NORMAL (NORMAL)
[2018-12-05 18:09] LABS: BACTERIA,URINE TRACE /HPF; HYALINE CASTS, URINE RARE /LPF; RBC,URINE RARE /HPF; SQUAMOUS EPITHELIAL CELL,UR RARE /HPF
--- NOTE | 2018-12-05 18:18 | Diagnostic Imaging Report ---
PROCEDURE: CT head and CT cervical spine without contrast. TECHNIQUE: Multiple contiguous axial images were obtained through the brain and cervical spine without the use of intravenous contrast. Sagittal and coronal reformations through the cervical spine were then performed. INDICATION: Trauma to the head. Head and neck pain. COMPARISON: 03/03/2018 FINDINGS: CT head: The ventricles and cortical sulci are diffusely prominent, compatible with age-related volume loss. There is no midline shift or mass-effect. No acute intra-axial hemorrhage is seen. There are no abnormal areas of increased or decreased density to suggest acute hemorrhage or edema. No extra-axial masses or collections are present. The bony calvarium is intact. The visualized paranasal sinuses are unremarkable. The mastoid air cells are clear. CT cervical spine: Evaluation of static alignment demonstrates mild grade 1 retrolisthesis at C4-C5 and slight grade 1 anterolisthesis of C5-C6. There is no evidence of jumped facets. There is mild image degradation secondary to motion artifact. Vertebral body heights are maintained. There is no convincing evidence of acute fracture of the cervical spine. No bony fragments are seen within the spinal canal. There are moderate multilevel degenerative changes consisting of intervertebral disc height loss with anterior and posterior disc osteophyte complex formations. These changes appear greatest at the C4-C5 and C6-C7 levels. Pre-and paravertebral soft tissue structures are unremarkable. Note is made of calcified carotid atherosclerosis. Included portions of lung apices show chronic appearing fibrotic changes. IMPRESSION: 1. No acute intracranial abnormality. No CT evidence of mass, acute infarct or intracranial hemorrhage. 2. No acute fracture or dislocation of cervical spine. 3. Moderate multilevel degenerative changes of the cervical spine. Dictated by: Dictated on workstation # [id number]
--- NOTE | 2018-12-05 18:23 | Diagnostic Imaging Report ---
PROCEDURE: CT chest without contrast. TECHNIQUE: Multiple contiguous axial images were obtained through the chest without the use of intravenous contrast. INDICATION: Chest trauma There is bilateral apical scarring. There is a prior CT from 11/12/2017 used for comparison and the areas of scarring are unchanged from the prior study. There are severe emphysematous changes in the lungs. There is no effusion or pneumothorax. There are no displaced rib fractures seen. IMPRESSION: COPD with apical scarring. No change since 11/12/2017. No acute abnormality seen. Dictated by: Dictated on workstation # [id number]
[2018-12-05] MEDS ORDERED: TRIM/SULFAMETH 160/800 (SEPTRA DS) TAB PO ONE (18:30)
[2018-12-05] MEDS ORDERED: HEParin 1000 UNIT/ML (10ML VIAL) FOR BOLUS IV ONE (18:40)
[2018-12-05] MEDS ORDERED: HEParin DRIP 25000 UNIT/500ML 500 ML IV ONE (18:40)
[2018-12-05] MEDS ORDERED: TICAGRELOR 90 MG TABLET (BRILINTA) PO ONE (18:45)
[2018-12-05 18:54] LABS: INR 0.9 (0.8-1.4); PROTHROMBIN TIME PATIENT 12.4 SEC (12.2-14.7)
[2018-12-05] MEDS ORDERED: ACETAMINOPHEN 325 MG TABLET PO ONE (19:15)
--- OUTSIDE RECORDS SUMMARY | 2018-12-05 19:38 | XMS REPORT ---
Author Author NASRIN MAGALLANES [facility] Address Unknown Care Team Providers Care Curriculum Coordinator Name Role Phone NASRIN MAGALLANES Unavailable PROBLEMS Unknown Problems ALLERGIES Substance Reaction Event Type Date Status PredniSONE Unknown Drug Allergy Feb, Active Penicillin V Potassium Unknown Drug Allergy Feb, Active Erythromycin Unknown Drug Allergy Feb, Active Cephalexin Unknown Drug Allergy Feb, Active no beta blockers Unknown Non Drug Allergy Feb, Active ENCOUNTERS Encounter Location Date Diagnosis [facility] [id number] [place] [address] [id number] Jun, [facility] [address] [id number] [place] [address] [id number] May, Encounter for dental examination Z01.20 [facility] [address] [id number] [place] [address] [id number] Apr, Dental examination Z01.20 [facility] [id number] [place] [address] [id number] Feb, Dental examination Z01.20 [facility] [id number] [place] [address] [phone] March, Dental examination Z01.20 IMMUNIZATIONS No Known Immunizations SOCIAL HISTORY Never Assessed REASON FOR VISIT FILLING PLAN OF CARE Activity Details Follow Up prn Reason:Cleaning VITAL SIGNS Blood pressure systolic 128 mmHg 2018-03-01 Blood pressure diastolic 83 mmHg 2018-03-01 MEDICATIONS Medication Instructions Dosage Frequency Start Date End Date Duration Status Diltiazem HCl Active Aspirin Active Losartan Potassium Active Digoxin Active Spiriva HandiHaler Active Chlordiazepoxide HCl Active Mirtazapine Active Famotidine Active Advair HFA Active albuterol Active Furosemide Active Klor-Con Active HydrOXYzine HCl Active Simvastatin Active RESULTS No Results PROCEDURES Procedure Date Ordered Result Body Site RESIN COMPOS - 2 SURFACES POSTERIOR March 01, 2018 INSTRUCTIONS MEDICATIONS ADMINISTERED No Known Medications MEDICAL (GENERAL) HISTORY Type Description Date Medical History GERD Medical History anxuety Medical History ptsd Medical History HBP Medical History ischemic cardiomyopathy Medical History COPD Medical History high cholesterol Surgical History gallbladder 2007 Surgical History apendix 2008 Surgical History as an lower portion of left lung removed Hospitalization History pneunomia
--- OUTSIDE RECORDS SUMMARY | 2018-12-05 19:38 | XMS REPORT ---
Author Author NASRIN MAGALLANES [facility] Address Unknown Care Team Providers Care Security Sales Consultant Name Role Phone NASRIN MAGALLANES Unavailable PROBLEMS Unknown Problems ALLERGIES Substance Reaction Event Type Date Status PredniSONE Unknown Drug Allergy Jun, Active Penicillin V Potassium Unknown Drug Allergy Jun, Active Erythromycin Unknown Drug Allergy Jun, Active Cephalexin Unknown Drug Allergy Jun, Active no beta blockers Unknown Non Drug Allergy Jun, Active ENCOUNTERS Encounter Location Date Diagnosis [facility] [address] [place] [address] [phone] Aug, [facility] [address] [place] [address] [phone] Jul, Dental examination Z01.20 [facility] [address] [id number] [place] [address] [phone] Jun, Dental examination Z01.20 [facility] [address] [place] [address] [phone] May, Encounter for dental examination Z01.20 [facility] [id number] [place] [address] [id number] Apr, Dental examination Z01.20 [facility] [id number] [place] [address] [phone] Feb, Dental examination Z01.20 [facility] [id number] [place] [address] [phone] March, Dental examination Z01.20 IMMUNIZATIONS No Known Immunizations SOCIAL HISTORY Never Assessed REASON FOR VISIT Restorative 45 minute/twest PLAN OF CARE Activity Details Follow Up prn Reason:filling #29 VITAL SIGNS Blood pressure systolic 120 mmHg 2018-07-08 Blood pressure diastolic 70 mmHg 2018-07-08 MEDICATIONS Medication Instructions Dosage Frequency Start Date End Date Duration Status Mirtazapine Active Magnesium Not-Taking Losartan Potassium Active Chlordiazepoxide HCl Active Famotidine Active Furosemide Active Levothyroxine Sodium Active Klor-Con Active Advair HFA Active Diltiazem HCl Active Simvastatin Active Digoxin Active Vitamin D3 Active albuterol Active iron Active HydrOXYzine HCl Active Aspirin Active Aspir-81 Active Spiriva HandiHaler Active RESULTS No Results PROCEDURES Procedure Date Ordered Result Body Site RESIN COMPOS - 1 SURFACE POSTERIOR Jul 08, 2018 RESIN COMPOS - 2 SURFACES POSTERIOR Jul 08, 2018 INSTRUCTIONS MEDICATIONS ADMINISTERED No Known Medications [...]
--- OUTSIDE RECORDS SUMMARY | 2018-12-05 19:38 | XMS REPORT ---
Author Author NASRIN MAGALLANES [facility] Address Unknown Care Team Providers Care Plane Captain Name Role Phone NASRIN MAGALLANES Unavailable PROBLEMS Unknown Problems ALLERGIES No Information ENCOUNTERS Encounter Location Date Diagnosis [facility] [id number] [place] [address] [phone] Aug, Dental examination Z01.20 [facility] [id number] [place] [address] [phone] Jul, Dental examination Z01.20 [facility] [id number] [place] [address] [id number] Jun, Dental examination Z01.20 [facility] [address] [id number] [place] [address] [id number] May, Encounter for dental examination Z01.20 [facility] [id number] [place] [address] [id number] Apr, Dental examination Z01.20 [facility] [id number] [place] [address] [id number] Feb, Dental examination Z01.20 [facility] [id number] [place] [address] [phone] March, Dental examination Z01.20 IMMUNIZATIONS No Known Immunizations SOCIAL HISTORY Never Assessed REASON FOR VISIT Restorative #29 PLAN OF CARE VITAL SIGNS MEDICATIONS Unknown Medications RESULTS No Results PROCEDURES Procedure Date Ordered Result Body Site Billing Notes on claim Aug 24, 2018 INSTRUCTIONS MEDICATIONS ADMINISTERED No Known Medications [...]
--- OUTSIDE RECORDS SUMMARY | 2018-12-05 19:38 | XMS REPORT ---
Author Author NASRIN MAGALLANES [facility] Address Unknown Care Team Providers Care Wheel Presser Name Role Phone NASRIN MAGALLANES Unavailable PROBLEMS Unknown Problems ALLERGIES Substance Reaction Event Type Date Status PredniSONE Unknown Drug Allergy Jul, Active Penicillin V Potassium Unknown Drug Allergy Jul, Active Erythromycin Unknown Drug Allergy Jul, Active Cephalexin Unknown Drug Allergy Jul, Active no beta blockers Unknown Non Drug Allergy Jul, Active ENCOUNTERS Encounter Location Date Diagnosis [facility] [address] [place] [address] [phone] Aug, [facility] [address] [place] [address] [phone] Jul, Dental examination Z01.20 [facility] [id number] [place] [address] [phone] Jun, Dental examination Z01.20 [facility] [address] [place] [address] [phone] May, Encounter for dental examination Z01.20 [facility] [id number] [place] [address] [id number] Apr, Dental examination Z01.20 [facility] [id number] [place] [address] [phone] Feb, Dental examination Z01.20 [facility] [id number] [place] [address] [phone] March, Dental examination Z01.20 IMMUNIZATIONS No Known Immunizations SOCIAL HISTORY Never Assessed REASON FOR VISIT Restorative #29 PLAN OF CARE Activity Details Follow Up 4 Months Reason:ayo/hygiene VITAL SIGNS Blood pressure systolic 137 mmHg 2018-07-29 Blood pressure diastolic 76 mmHg 2018-07-29 MEDICATIONS Medication Instructions Dosage Frequency Start Date End Date Duration Status HydrOXYzine HCl Active iron Active Digoxin Active Simvastatin Active Furosemide Active Diltiazem HCl Active Famotidine Active Levothyroxine Sodium Active Spiriva HandiHaler Active Aspirin Active Klor-Con Active Losartan Potassium Active Magnesium Not-Taking Advair HFA Active Chlordiazepoxide HCl Active Mirtazapine Active Aspir-81 Active Vitamin D3 Active albuterol Active RESULTS No Results PROCEDURES Procedure Date Ordered Result Body Site RESIN COMPOS - 3 SURFACES POSTERIOR Jul 29, 2018 INSTRUCTIONS MEDICATIONS ADMINISTERED No Known Medications [...]
--- OUTSIDE RECORDS SUMMARY | 2018-12-05 19:38 | XMS REPORT ---
Author Author MILVIA GRIDER Organization [facility] Address [address] [place] [address] Care Team Providers Care Hatchery Attendant Name Role Phone MILVIA GRIDER Unavailable PROBLEMS Unknown Problems ALLERGIES Substance Reaction Event Type Date Status PredniSONE Unknown Drug Allergy May, Active Penicillin V Potassium Unknown Drug Allergy May, Active Erythromycin Unknown Drug Allergy May, Active Cephalexin Unknown Drug Allergy May, Active no beta blockers Unknown Non Drug Allergy May, Active ENCOUNTERS Encounter Location Date Diagnosis [facility] [id number] [place] [address] [phone] Aug, [facility] [address] [phone] Jun, Dental examination Z01.20 [facility] [address] [phone] May, Encounter for dental examination Z01.20 [facility] [id number] [place] [address] [phone] Apr, Dental examination Z01.20 [facility] [id number] [place] [address] [phone] Feb, Dental examination Z01.20 [facility] [address] [phone] March, Dental examination Z01.20 IMMUNIZATIONS No Known Immunizations SOCIAL HISTORY Never Assessed REASON FOR VISIT rosetta/hygiene PLAN OF CARE Activity Details Follow Up First Avaialable Reason:Restorative VITAL SIGNS Blood pressure systolic 122 mmHg 2018-05-19 Blood pressure diastolic 53 mmHg 2018-05-19 MEDICATIONS Medication Instructions Dosage Frequency Start Date End Date Duration Status HydrOXYzine HCl Active Losartan Potassium Active Chlordiazepoxide HCl Active Mirtazapine Active Klor-Con Active iron Active Levothyroxine Sodium Active Spiriva HandiHaler Active Furosemide Active Diltiazem HCl Active Digoxin Active Vitamin D3 Active Aspirin Active Famotidine Active Simvastatin Active Advair HFA Active Magnesium Not-Taking albuterol Active RESULTS No Results PROCEDURES Procedure Date Ordered Result Body Site PERIODIC ORAL EXAMINATION May 19, 2018 BITEWINGS - TWO FILMS May 19, 2018 TOPICAL FLUORIDE VARNISH May 19, 2018 Periodontal maint procedures May 19, 2018 INSTRUCTIONS MEDICATIONS ADMINISTERED No Known Medications [...]
--- OUTSIDE RECORDS SUMMARY | 2018-12-05 19:38 | XMS REPORT ---
Author Author NASRIN MAGALLANES [facility] Address Unknown Care Team Providers Care Principal Examiner Name Role Phone NASRIN MAGALLANES Unavailable PROBLEMS Unknown Problems ALLERGIES Substance Reaction Event Type Date Status PredniSONE Unknown Drug Allergy Apr, Active Penicillin V Potassium Unknown Drug Allergy Apr, Active Erythromycin Unknown Drug Allergy Apr, Active Cephalexin Unknown Drug Allergy Apr, Active no beta blockers Unknown Non Drug Allergy Apr, Active ENCOUNTERS Encounter Location Date Diagnosis [facility] [id number] [place] [address] [phone] Jun, [facility] [address] [id number] [place] [address] [phone] May, Encounter for dental examination Z01.20 [facility] [id number] [place] [address] [phone] Apr, Dental examination Z01.20 [facility] [id number] [place] [address] [phone] Feb, Dental examination Z01.20 [facility] [id number] [phone] March, Dental examination Z01.20 IMMUNIZATIONS No Known Immunizations SOCIAL HISTORY Never Assessed REASON FOR VISIT MITA PLAN OF CARE Activity Details Follow Up prn Reason:ayo/hygiene VITAL SIGNS Blood pressure systolic 141 mmHg 2018-04-15 Blood pressure diastolic 85 mmHg 2018-04-15 MEDICATIONS Medication Instructions Dosage Frequency Start Date End Date Duration Status Famotidine Active Digoxin Active HydrOXYzine HCl Active iron Active Diltiazem HCl Active Spiriva HandiHaler Active Aspirin Active Losartan Potassium Active Furosemide Active Simvastatin Active Vitamin D3 Active albuterol Active Mirtazapine Active Chlordiazepoxide HCl Active Klor-Con Active Magnesium Active Advair HFA Active RESULTS No Results PROCEDURES Procedure Date Ordered Result Body Site LTD ORAL EVALUATION - PROBLEM FOCUS April 15, 2018 INTRAORL-PERIAPICAL 1 FILM [id number] April 15, 2018 SEDATIVE FILLING April 15, 2018 BITEWING - SINGLE FILM April 15, 2018 INSTRUCTIONS MEDICATIONS ADMINISTERED No Known Medications [...]
[2018-12-05] MEDS ORDERED: TRIM/SULFAMETH 160/800 (SEPTRA DS) TAB PO SCH (21:41)
[2018-12-05] MEDS ORDERED: FAMOTIDINE 20 MG (PEPCID) TABLET PO SCH (21:44)
[2018-12-05] MEDS ORDERED: HEParin DRIP 25000 UNIT/500ML 500 ML IV SCH (21:51)
[2018-12-05] MEDS ORDERED: HEParin 1000 UNIT/ML (10ML VIAL) FOR BOLUS IV SCH (22:00)
[2018-12-05] MEDS: LORazepam 1 MG (ATIVAN) TAB PO SCH (22:16)
[2018-12-05] MEDS: ACETAMINOPHEN 325 MG TABLET PO SCH (22:16)
[2018-12-05] MEDS: RT-ALBUTEROL SULF 2.5 MG/3 ML PRE-MIX VIAL INH SCH (23:17)
[2018-12-06] VITALS (24 sets, daily range): BP systolic 83–153; BP diastolic 44–108
[2018-12-06] MEDS ORDERED: RT-ALBUTEROL SULF 2.5 MG/3 ML PRE-MIX VIAL INH PRN
[2018-12-06] MEDS: RT-ALBUTEROL SULF 2.5 MG/3 ML PRE-MIX VIAL INH SCH ×6 (01:40→22:04)
[2018-12-06] MEDS: ONDANSETRON 4 MG/2 ML (SDV) Z0FRAN IV PRN ×3 (02:28→17:06)
[2018-12-06] MEDS: morphine INJ 4 MG/ML 1 ML (VIAL/SYRINGE) IV PRN ×2 (02:31→06:52)
[2018-12-06 03:20] LABS: BASOPHILS # (AUTO) 0.1 10^3/uL (0.0-0.1); BASOPHILS % (AUTO) 0 % (0-10); EOSINOPHILS # (AUTO) 0.2 10^3/uL (0.0-0.3); EOSINOPHILS % (AUTO) 1 % (0-10); HEMATOCRIT 32 % (35-52); HEMOGLOBIN 10.7 G/DL (11.5-16.0); LYMPHOCYTES # (AUTO) 1.8 X 10^3 (1.0-4.0); LYMPHOCYTES % (AUTO) 14 % (12-44); MEAN CORPUSCULAR HEMOGLOBIN 31 PG (25-34); MEAN CORPUSCULAR HGB CONC 33 G/DL (32-36); MEAN CORPUSCULAR VOLUME 95 FL (80-99); MEAN PLATELET VOLUME 8.9 FL (7.4-10.4); MONOCYTES # (AUTO) 1.3 X 10^3 (0.0-1.0); MONOCYTES % (AUTO) 10 % (0-12); NEUTROPHILS # (AUTO) 9.5 X 10^3 (1.8-7.8); NEUTROPHILS % (AUTO) 74 % (42-75); PLATELET COUNT 292 10^3/uL (130-400); RED CELL DISTRIBUTION WIDTH 13.1 % (10.0-14.5); WHITE BLOOD COUNT 12.7 10^3/uL (4.3-11.0)
[2018-12-06 03:35] LABS: CALCIUM 9.3 MG/DL (8.5-10.1); CREATININE SERUM 1.42 MG/DL (0.60-1.30); MAGNESIUM 2.6 MG/DL (1.8-2.4); PHOSPHORUS 3.3 MG/DL (2.3-4.7); POTASSIUM 4.2 MMOL/L (3.6-5.0)
[2018-12-06] MEDS: ACETAMINOPHEN 325 MG TABLET PO SCH ×4 (03:58→20:42)
[2018-12-06] MEDS: MAGNESIUM 1 GM/100 ML IVPB 100 ML IV SCH (03:59)
[2018-12-06] MEDS: POTASSIUM CL 10MEQ/50ML IVPB 50 ML IV SCH (03:59)
[2018-12-06] MEDS: KCL 20 MEQ TAB (K-DUR) PO SCH (04:00)
[2018-12-06] MEDS: FUROSEMIDE 20 MG (LASIX) TAB PO SCH (06:39)
--- NOTE | 2018-12-06 07:57 | Diagnostic Imaging Report ---
Indication: Chest pain. Comparison: 12/05/2018. Findings: New right basilar heterogeneous consolidations. Chronic volume loss and architectural distortion of left upper lobe is similar. No pneumothorax. No pleural effusion. Stable heart size. Impression: New right basilar heterogeneous consolidations may represent a developing pneumonia or aspiration. Dictated by: Dictated on workstation # [id number]
--- NOTE | 2018-12-06 08:03 | Consultation-Cardiology ---
HPI-Cardiology Cardiology Consultation: Date of Consultation 12/06/18 Time Seen by a Provider: 08:25 Date of Admission 12-05-18 Attending Physician Ruthie Paz DO Admitting Physician Ruthie Paz DO Consulting Physician Samy Soto MD HPI: Chief Complaint: NSTEMI Ms. Lynn is a 78 year old female admitted to ICU 8 from the ED. She reports yesterday she went to [facility]. She was getting into her car when the wind caught her car door and knocked her to the ground. She reports she had several cuts and scrapes. She was able to drive herself home. She was unable to get the bleeding from her cuts to stop, so she called EMS. She reports in the ED she was having mid-epigastric discomfort, which was localized, pressure, mild to mod in intensity. It did not radiate. She reports it had resolved while she was in the ED and she has had no further episodes since. She reports chronic mod dyspnea for which she is oxygen dependant. She reports occ cough. She does feel her SOB is somewhat worse over the last few days. No c/o LE swelling, no c/o syncope or near syncope. Review of Systems-Cardiology Review of Systems Constitutional: No chills, No fever; malaise Eyes: No vision change Ears/Nose/Throat: No epistaxis, No recent hearing loss Respiratory: As described under HPI Cardiovascular: As described under HPI Gastrointestinal: No diarrhea, No nausea, No vomiting Genitourinary: No dysuria, No hematuria Musculoskeletal: muscle pain (following fall yesterday) Skin: As described under HPI; No rash, No ulcerations Psychiatric/Neurological: No anxiety, No depression, No seizure, No focal weakness, No syncope Hematologic: easy bleeding OCF-Dzpfug-Ypzdrv Hx Patient Social History Alcohol Use: Denies Use Recreational Drug Use: No Smoking Status: Former Smoker Former smoker/When Quit: Jul 09, 2006 Type Used: Cigarettes 2nd Hand Smoke Exposure: No Recent Foreign Travel: No Recent Infectious Disease Expo: No Hospitalization with Isolation: Denies Immunizations Up To Date Tetanus Booster (TDap): More than 5yrs Date of Pneumonia Vaccine: Jul 09, 2012 Date of Influenza Vaccine: Aug 08, 2019 Past Medical History PMH As described under Assessment. Family Medical History Family Medical History: She reports her father and mother had CAD. Family History: Alcoholism SONS Asthma DAUGHTER SONS Cardiovascular disease 19 MOTHER Cataracts 19 MOTHER Deafness or hearing loss G8 SISTER Diabetes mellitus SONS Gastroenteritis SONS Headache disorder SONS Hypertension SONS Myocardial infarction 19 FATHER Psychosocial problem 19 MOTHER No Family History of: AIDS Abdominal aortic aneurysm [place]'s disease Alzheimer's disease Aphasia Arthritis Cancer of mouth Colon cancer Completed stroke Congenital disease Congenital heart disease Coronary thrombosis Cystic fibrosis Dementia Drug abuse Dysphasia Fibrocystic disease of breast Glaucoma Hypercholesterolemia Infertility Kidney disease Neoplasm Not obtainable due to adoption Osteoporosis Parkinson's disease Prostate cancer Respiratory disorder Seizure disorder Severe allergy Thyroid disease Tuberculosis Visual disorder Allergies and Home Medications Allergies Coded Allergies: diphenhydramine HCl (Unverified Allergy, Severe, anaphalaxis, 09/10/14) Pt states this happened several yrs ago and that she had almost forgotten about it because she has avoided t for so long. fentanyl (Unverified Allergy, Mild, 09/10/14) PT DOES NOT WANT TO TAKE--SHE STAES IT MADE HER COPD WORSE midazolam (Unverified Allergy, Mild, PT TAKE LIBRIUM AT HOME, 09/10/14) PT DOESN'T WANT TO TAKE--SHE STATED IT MADE HER COPD OWRSE. Beta-Blockers (Beta-Adrenergic Bloc (Verified Allergy, Unknown, 09/10/14) Cephalosporins (Verified Allergy, Unknown, HAS RECEIVED CEFEPIME IN PAST W /O PROBLEM, 09/14/14) Penicillins (Verified Allergy, Unknown, HAS REC AZACTAM IN PAST WITHOUT PROBLEMS, 09/10/14) risedronic acid (Verified Allergy, Unknown, 09/10/14) prednisone (Unverified Adverse Reaction, Intermediate, Large doses cause SOA, 09/10/14) meperidine (Unverified Adverse Reaction, Mild, NAUSEA, 09/10/14) propofol (Unverified Adverse Reaction, Mild, 09/10/14) PT DOES NOT WANT TO TAKE--SHE STATES IT MADE HER COPD WORSE erythromycin base (Verified Adverse Reaction, Unknown, MAKES PATIENT NAUSEADED, 09/10/14) Home Medications Albuterol Sulfate 2.5 Mg/3 Ml Vial.neb, 2.5 MG NEB Q3H PRN for SHORTNESS OF BREATH, (Reported) Albuterol Sulfate 18 Gm Hfa.aer.ad, 2 PUFF INH Q4H PRN for SHORTNESS OF BREATH, (Reported) Aspirin 81 Mg Tablet.dr, 81 MG PO DAILY, (Reported) Carboxymethylcellulos/Glycerin 15 Ml Drops, 1 DROP OU TID PRN for DRY EYES, ( Reported) Chlordiazepoxide HCl 25 Mg Capsule, 25 MG PO BID, (Reported) Digoxin 125 Mcg Tablet, 62.5 MG PO DAILY, (Reported) TAKES 1/2 OF A (125 MCG) TABLET Diltiazem HCl 120 Mg Cap.er.24h, 120 MG PO DAILY, (Reported) Famotidine 20 Mg Tablet, 20 MG PO BID PRN for HEARTBURN, (Reported) Fluticasone/Salmeterol 12 Gm Hfa.aer.ad, 2 PUFF INH BID, (Reported) Furosemide 40 Mg Tablet, 20 MG PO DAILY, (Reported) TAKES 1/2 (40MG) TABLET Hydroxyzine HCl 10 Mg Tablet, 10 MG PO HS, (Reported) Losartan Potassium 50 Mg Tablet, 50 MG PO BID, (Reported) Mirtazapine 30 Mg Tablet, 30 MG PO HS, (Reported) Potassium Chloride 10 Meq Tablet.er, 10 MEQ PO DAILY, (Reported) Sennosides/Docusate Sodium 1 Each Tablet, 2 TAB PO DAILY PRN for CONSTIPATION- 6TH LINE, (Reported) Simvastatin 40 Mg Tablet, 40 MG PO HS, (Reported) Tiotropium [place] 1 Inh Aerp, 1 CAP IH DAILY, (Reported) Physical Exam-Cardiology Physical Exam Vital Signs/I&O 12/07/18 12/07/18 12/07/18 12/07/18 03:00 03:32 03:35 03:40 Temp 97.7 Pulse 74 98 93 Resp 28 27 26 B/P (MAP) 111/63 (79) Pulse Ox 95 83 92 O2 Delivery Nasal Cannula Nasal Cannula Nasal Cannula O2 Flow Rate 3.00 4.00 4.00 12/07/18 12/07/18 12/07/18 12/07/18 04:00 04:00 05:00 06:00 Pulse 87 87 85 Resp 26 30 18 B/P (MAP) 127/77 (94) 140/67 (91) 119/53 (75) Pulse Ox 95 95 95 O2 Delivery Nasal Cannula Nasal Cannula Nasal Cannula Nasal Cannula O2 Flow Rate 4.00 3.00 4.00 4.00 12/07/18 12/07/18 12/07/18 12/07/18 06:12 07:00 07:00 08:00 Pulse 95 85 Resp 31 B/P (MAP) 115/52 (73) Pulse Ox 98 94 O2 Delivery Nasal Cannula Nasal Cannula Nasal Cannula O2 Flow Rate 3.00 4.00 4.00 12/07/18 12/07/18 12/07/18 12/07/18 08:00 08:00 09:00 10:00 Temp 97.8 Pulse 95 105 89 Resp 24 55 17 B/P (MAP) 149/70 (96) 140/81 (100) 117/62 (80) Pulse Ox 95 86 95 O2 Delivery Nasal Cannula Nasal Cannula Nasal Cannula O2 Flow Rate 4.00 4.00 4.00 12/07/18 12/07/18 12/07/18 12/07/18 10:01 11:00 12:00 12:00 Temp 97.6 Pulse 84 Resp 14 B/P (MAP) 117/51 (73) Pulse Ox 98 96 O2 Delivery Nasal Cannula Nasal Cannula Nasal Cannula O2 Flow Rate 3.00 4.00 4.00 12/07/18 14:03 Pulse Ox 96 O2 Delivery Nasal Cannula O2 Flow Rate 3.00 12/07/18 00:00 Intake Total 1480 ml Output Total 600 ml Balance 880 ml Capillary Refill : Less Than 3 Seconds Constitutional: AAO x 3, well-developed, well-nourished HEENT: PERRL, hearing is well preserved, oral hygience is good; No ulceration, No xanthelasmas are seen Neck: carotid bruit, carotid pulses are 2 + bilaterally Respiratory: chest expansion is symmetric, chest is bilaterally symmetric, rhonchi (scattered), other (prolonged expiratory phase) Cardiovascular: No JVD; tachycardia, S1 and S2, systolic murmur Gastrointestinal: soft, round, audible bowel sounds (hypoactive) Rectal: deferred Extremities: no lower extremity edema bilateral Neurologic/Psychiatric: grossly intact, power is 5/5 both on sides Skin: No rash, No ulcerations; other (multiple abrasions to knees and arms which are under dressings not removed; multiple bruises to arms and legs bilat) Data Review Labs Laboratory Tests 12/06/18 18:00: Activated Partial Thromboplast Time 32 12/07/18 00:55: Activated Partial Thromboplast Time 36H 12/07/18 03:50: White Blood Count 17.7H, Red Blood Count 3.39L, Hemoglobin 10.5L, Hematocrit 33L , Mean Corpuscular Volume 96, Mean Corpuscular Hemoglobin 31, Mean Corpuscular Hemoglobin Concent 32, Red Cell Distribution Width 13.7, Platelet Count 283, Mean Platelet Volume 9.0, Neutrophils (%) (Auto) 71, Lymphocytes (%) (Auto) 13, Monocytes (%) (Auto) 15H, Eosinophils (%) (Auto) 1, Basophils (%) (Auto) 0, Neutrophils # (Auto) 12.6H, Lymphocytes # (Auto) 2.3, Monocytes # (Auto) 2.7H, Eosinophils # (Auto) 0.1, Basophils # (Auto) 0.0, Neutrophils % (Manual) 76, Lymphocytes % (Manual) 12, Monocytes % (Manual) 10, Band Neutrophils 2, Blood Morphology Comment NORMAL, Sodium Level 136, Potassium Level 4.6, Chloride Level 101, Carbon Dioxide Level 24, Anion Gap 11, Blood Urea Nitrogen 31H, Creatinine 1.70H, Estimat Glomerular Filtration Rate 29, BUN/Creatinine Ratio 18 , Glucose Level 114H, Calcium Level 9.1, Phosphorus Level 3.3, Magnesium Level 2.3, Digoxin Level 0.81 12/07/18 06:44: Activated Partial Thromboplast Time 37H 12/07/18 12:20: Activated Partial Thromboplast Time 33 Microbiology 12/05/18 Urine Culture - Final, Complete See Report Radiology NAME: HAI LYNN [facility] REC#: [id number] PT STATUS: REG ER : 1940 PHYSICIAN: DANNIELLE STRONG MD ADMIT DATE: 12/05/18/ER Draft Date of Exam:12/05/18 CHEST PA/LAT (2 VIEW) INDICATION: Fall with chest pain PA and lateral chest obtained at 4:48 p.m. and compared with 04/25/2018. There is marked COPD change with hyperinflation. There is parenchymal scarring in both apices, left greater than right, which appears similar to 04/25/2018. There are increased markings in the right medial base which are also unchanged. There is no pneumothorax or pleural fluid. There is chronic blunting of the left costophrenic angle. IMPRESSION: COPD changes and chronic scarring, with findings appearing similar to the previous study of 04/25/2018. No definite acute finding. Dictated on workstation # [id number] Dict: 12/05/18 1707 Trans: 12/05/18 1718 [facility] [id number] Interpreted by: AMINA CORONADO MD Electronically signed by: ECG Impression ECG Initial ECG Rhythm: S.Tach A/P-Cardiology Assessment/Admission Diagnosis NSTEMI S/P non-syncopal fall on 12-05-18 resulting in multiple abrasions Chronic kidney disease, stage 3 TIA on Mar 08 2018 for which she was seen in the ED 24 Hour Holter of May 26, 2018 showed NSR with frequent PVC's and PAC's Severe chronic obstructive pulmonary disease due to prior tobaccoism. Tobaccoism that she quit in 2005. H/O cardiomyopathy with an ejection fraction of 30%, both ischemic and non- ischemic per cardiac catheterization from December 2008. Most recent echocardiogram of May 2017 showed LVEF 55-60%. Mild to mod AoR, TR, and MR. Diastolic dysfunction. History of non-ST elevation myocardial infarction. Cardiac catheterizations, including the last one of December 2008, have demonstrated only angiographically mild coronary artery disease. Non-ST elevation myocardial infarction was felt to be due to small-vessel disease. Palpitations, probably related to known paroxysmal supraventricular tachycardia/ atrial fibrillation, currently controlled. The patient is considered intolerant to warfarin for several reasons, including episodes of marked epistaxis and hemoptysis, even without warfarin therapy. Also, she is prone to falls, given her generalized frail status. She refuses any blood thinners other than aspirin. Severe anxiety, currently controlled. Osteoporosis. Gastroesophageal reflux. Degenerative joint disease. H/O intermittent congestive heart failure due to diastolic and systolic dysfunction of the left ventricle, currently controlled. Chronic anemia being followed by Dr. Paz. Hyperlipidemia, well controlled on therapy with simvastatin. H/o left cataract surgery. Mild ascending aortic aneurysm measuring 4.2 cm found incidentally on a CT scan or 07/10/[address] King [place] nodules being followed by Dr King Carotid u/s of 04/19/18: less than 40% ROSY, 50-60% LICA stenoses Diagnosis of hypothryroidism in April 2018, managed by Dr Paz, but she has been noncompliant with thryroid replacement therapy Discussion and Recomendations NSTEMI - we have advised cardiac cath. We have discussed the procedure, risks, benefits and potential complications including the risk of worsening renal function in the presence of already existing CKD stage 3. She verbalizes understanding and wishes to proceed. We will give IVF pre and post procedure to reduce risk of contrast nephropathy. Continue home medications including ASA, ARB and DIG Check Dig level Further recs will be based on her hospital course Clinical Quality Measures DVT/VTE Risk/Contraindication: Risk Factor Score Per Nursin RFS Level Per Nursing on Admit: 3=High KEE DAMON Dec 06, 2018 08:03
--- NOTE | 2018-12-06 08:10 | NUR ---
RENAL DOSING PROTOCOL FOR CRCL LESS THAN 30 CHANGED BACTRIM DS TO 1 TABLET PO DAILY CHANGED FAMOTIDINE TO 20MG PO DAILY
[2018-12-06] MEDS: TRIM/SULFAMETH 160/800 (SEPTRA DS) TAB PO SCH (09:00)
[2018-12-06] MEDS: KCL 10 MEQ TAB (MICRO K) PO SCH (09:00)
[2018-12-06] MEDS ORDERED: FAMOTIDINE 20 MG (PEPCID) TABLET PO SCH (09:00)
[2018-12-06] MEDS: LORazepam 1 MG (ATIVAN) TAB PO SCH ×2 (09:00→20:42)
[2018-12-06] MEDS: ASPIRIN E.C. 81 MG (ECOTRIN) TAB PO SCH (09:00)
[2018-12-06] MEDS: NS IV 1000 ML 1,000 ML IV SCH ×2 (09:21→22:38)
[2018-12-06] MEDS: ARTIFICAL TEARS 0.4 ML UNIT DOSE (REFRESH PLUS) OU SCH ×4 (09:22→20:54)
[2018-12-06] MEDS: DIGOXIN 62.5 MCG (LANOXIN) TAB PO SCH (09:22)
--- NOTE | 2018-12-06 09:22 | Cardiac Procedure Note-CS/ASA ---
Pre-Procedure Note Pre-Op Procedure Note H&P Reviewed The H&P was reviewed, patient examined and no changes noted. Date H&P Reviewed: Dec 06, 2018 Time H&P Reviewed: 09:21 Conscious Sedation Pre-Proced Time 09:21 ASA Score 3 For ASA 3 and 4: Consider anesthesia and medical clearance. Also, for patients with a history of failed moderate sedation consider anesthesia. Airway Lungs Heart ASA score ASA 1: a normal healthy patient ASA 2: a patient with a mild systemic disease (mid diabetes, controlled hypertension, obesity ASA 3: a patient with a severe systemic disease that limits activity (angina , COPD, prior Myocardial infarction) ASA 4: a patient with an incapacitating disease that is a constant threat to life (CHF, renal failure) ASA 5: a moribund patient not expected to survive 24 hrs. (ruptured aneurysm) ASA 6: a declared brain patient whose organs are being harvested. For emergent operations, add the letter E after the classification Mallampati Classification Grade 2 Sedation Plan Analgesia, Amnesia, Plan communicated to team members, Discussed options with patient/fam, Discussed risks with patient/fam The patient is an appropriate candidate to undergo the planned procedure, sedation, and anesthesia. The patient immediately re-assessed prior to indication. CASSIE ARANA MD FACP FAC CCDS Dec 06, 2018 09:22
[2018-12-06] MEDS: LOSARTAN 50 MG (COZAAR) TAB PO SCH ×2 (09:23→20:42)
[2018-12-06] MEDS: DILTIAZEM 120 MG (CARDIZEM CD) CAP PO SCH (09:23)
--- NOTE | 2018-12-06 09:26 | Consultation-Cardiology ---
HPI-Cardiology Cardiology Consultation: Date of Consultation 12/06/18 Time Seen by a Provider: 09:22 Date of Admission 12/05/18 Attending Physician Melody Paz DO Admitting Physician Melody Paz DO Consulting Physician CASSIE ARANA MD, FACP, FACC HPI: Chief Complaint: CC: Fall due to loss of balance Ms. Lynn is a 78 year old female admitted to ICU 8 from the ED. She reports yesterday she went to [facility]. She was getting into her car when the wind caught her car door and knocked her to the ground. She reports she had several cuts and scrapes. She was able to drive herself home. She was unable to get the bleeding from her cuts to stop, so she called EMS. She reports in the ED she was having mid-epigastric discomfort, which was localized, pressure, mild to mod in intensity. It did not radiate. She reports it had resolved while she was in the ED and she has had no further episodes since. She reports chronic mod dyspnea for which she is oxygen dependent. She reports occ cough. She does feel her SOB is somewhat worse over the last few days. No c/o LE swelling, no c/o syncope or near syncope. Review of Systems-Cardiology Review of Systems Constitutional: No chills, No fever; malaise Eyes: No vision change Ears/Nose/Throat: No epistaxis, No recent hearing loss Respiratory: As described under HPI Cardiovascular: As described under HPI Gastrointestinal: No diarrhea, No nausea, No vomiting Genitourinary: No dysuria, No hematuria Musculoskeletal: muscle pain (following fall yesterday) Skin: As described under HPI; No rash, No ulcerations Psychiatric/Neurological: No anxiety, No depression, No seizure, No focal weakness, No syncope Hematologic: easy bleeding QPH-[id number] Hx Patient Social History Alcohol Use: Denies Use Recreational Drug Use: No Smoking Status: Former Smoker Former smoker/When Quit: Jul 09, 2006 Type Used: Cigarettes 2nd Hand Smoke Exposure: No Recent Foreign Travel: No Recent Infectious Disease Expo: No Hospitalization with Isolation: Denies Immunizations Up To Date Tetanus Booster (TDap): More than 5yrs Date of Pneumonia Vaccine: Jul 09, 2012 Date of Influenza Vaccine: Aug 08, 2019 Past Medical History PMH As described under Assessment. Family Medical History Family Medical History: She reports her father and mother had CAD. Family History: Alcoholism SONS Asthma DAUGHTER SONS Cardiovascular disease 19 MOTHER Cataracts 19 MOTHER Deafness or hearing loss G8 SISTER Diabetes mellitus SONS Gastroenteritis SONS Headache disorder SONS Hypertension SONS Myocardial infarction 19 FATHER Psychosocial problem 19 MOTHER No Family History of: AIDS Abdominal aortic aneurysm Joey's disease Alzheimer's disease Aphasia Arthritis Cancer of mouth Colon cancer Completed stroke Congenital disease Congenital heart disease Coronary thrombosis Cystic fibrosis Dementia Drug abuse Dysphasia Fibrocystic disease of breast Glaucoma Hypercholesterolemia Infertility Kidney disease Neoplasm Not obtainable due to adoption Osteoporosis Parkinson's disease Prostate cancer Respiratory disorder Seizure disorder Severe allergy Thyroid disease Tuberculosis Visual disorder Allergies and Home Medications Allergies Coded Allergies: diphenhydramine HCl (Unverified Allergy, Severe, anaphalaxis, 09/10/14) Pt states this happened several yrs ago and that she had almost forgotten about it because she has avoided t for so long. fentanyl (Unverified Allergy, Mild, 09/10/14) PT DOES NOT WANT TO TAKE--SHE STAES IT MADE HER COPD WORSE midazolam (Unverified Allergy, Mild, PT TAKE LIBRIUM AT HOME, 09/10/14) PT DOESN'T WANT TO TAKE--SHE STATED IT MADE HER COPD OWRSE. Beta-Blockers (Beta-Adrenergic Bloc (Verified Allergy, Unknown, 09/10/14) Cephalosporins (Verified Allergy, Unknown, HAS RECEIVED CEFEPIME IN PAST W /O PROBLEM, 09/14/14) Penicillins (Verified Allergy, Unknown, HAS REC AZACTAM IN PAST WITHOUT PROBLEMS, 09/10/14) risedronic acid (Verified Allergy, Unknown, 09/10/14) prednisone (Unverified Adverse Reaction, Intermediate, Large doses cause SOA, 09/10/14) meperidine (Unverified Adverse Reaction, Mild, NAUSEA, 09/10/14) propofol (Unverified Adverse Reaction, Mild, 09/10/14) PT DOES NOT WANT TO TAKE--SHE STATES IT MADE HER COPD WORSE erythromycin base (Verified Adverse Reaction, Unknown, MAKES PATIENT NAUSEADED, 09/10/14) Home Medications Albuterol Sulfate 2.5 Mg/3 Ml Vial.neb, 2.5 MG NEB Q3H PRN for SHORTNESS OF BREATH, (Reported) Albuterol Sulfate 1 Puff Puff, 2 PUFF IH Q4H PRN for SHORTNESS OF BREATH, ( Reported) 1 PUFF = 90 MCG Aspirin 81 Mg Tabec, 81 MG PO DAILY, (Reported) Carboxymethylcellulos/Glycerin 15 Ml Drops, 1 DROP OU TID, (Reported) Chlordiazepoxide HCl 25 Mg Capsule, 25 MG PO BID, (Reported) Dexamethasone 4 Mg Tablet, 4 MG PO BID BID for 3days then 4mg daily for 3 days then 2mg daily for 3 days then stop Prescribed by: MELODY PAZ on 05/13/17 1314 Digoxin 125 Mcg Tablet, 62.5 MG PO DAILY, (Reported) TAKES 1/2 OF A (125 MCG) TABLET Diltiazem HCl 120 Mg Cap.er.24h, 120 MG PO DAILY, (Reported) Famotidine 20 Mg Tablet, 20 MG PO BID, (Reported) Fluticasone/Salmeterol 1 Disk Inhp, 1 PUFF IH BID, (Reported) Furosemide 20 Mg Tablet, 20 MG PO DAILY, (Reported) Hydroxyzine HCl 10 Mg Tablet, 10 MG PO HS, (Reported) L.acidoph & Paracasei,B.lactis 1 Each Capsule, 1-2 CAP PO DAILY PRN for DIARRHEA , (Reported) Losartan Potassium 50 Mg Tablet, 50 MG PO BID, (Reported) Methylprednisolone 4 Mg Tab.ds.pk, 4 MG PO UD Prescribed by: JH GARCIA on 04/25/18 1124 Mirtazapine 30 Mg Tablet, 30 MG PO HS, (Reported) Josse/Polymyx B Sulf/Dexameth 3.5 Gm Oint...g., OU TWICE WEEKLY, (Reported) Nystatin 100,000 Unit/1 Ml Oral.susp, 5 ML PO QID Swish and gargle for 30 seconds, then swallow. Prescribed by: JH GARCIA on 04/25/18 1124 Potassium Chloride 10 Meq Tablet.er, 10 MEQ PO DAILY, (Reported) Sennosides/Docusate Sodium 1 Each Tablet, 2 TAB PO DAILY PRN for CONSTIPATION- 6TH LINE, (Reported) Simvastatin 40 Mg Tablet, 40 MG PO HS, (Reported) Tiotropium Ambrose 1 Inh Aerp, 1 CAP IH DAILY, (Reported) Patient Home Medication List Home Medication List Reviewed: Yes Physical Exam-Cardiology Physical Exam Vital Signs/I&O 12/05/18 12/05/18 12/05/18 12/05/18 21:28 21:29 21:45 22:00 Temp 97.1 Pulse 113 112 112 Resp 22 33 B/P (MAP) 115/66 (82) 101/59 (73) Pulse Ox 98 100 98 O2 Delivery Nasal Cannula Nasal Cannula Nasal Cannula O2 Flow Rate 3.00 3.00 3.00 12/05/18 12/05/18 12/05/18 12/05/18 22:00 22:12 22:15 22:30 Pulse 111 107 110 108 Resp 35 17 16 B/P (MAP) 104/67 (79) 94/59 (71) 99/64 (76) Pulse Ox 99 99 99 99 O2 Delivery Nasal Cannula Nasal Cannula Nasal Cannula O2 Flow Rate 3.00 3.00 3.00 FiO2 40 12/05/18 12/05/18 12/05/18 12/06/18 22:45 23:00 23:23 00:00 Pulse 105 102 Resp 15 19 B/P (MAP) 93/56 (68) 106/65 (79) Pulse Ox 99 99 96 96 O2 Delivery Nasal Cannula Nasal Cannula Nasal Cannula Nasal Cannula O2 Flow Rate 3.00 3.00 5.00 3.00 12/06/18 12/06/18 12/06/18 12/06/18 00:00 00:35 01:00 01:00 Pulse 105 100 100 100 Resp 18 20 27 B/P (MAP) 95/61 (72) 98/66 (77) 88/59 (69) Pulse Ox 97 99 97 O2 Delivery Nasal Cannula Nasal Cannula Nasal Cannula O2 Flow Rate 3.00 3.00 3.00 12/06/18 12/06/18 12/06/18 12/06/18 01:40 02:00 03:00 03:15 Pulse 101 96 94 Resp 22 26 23 B/P (MAP) 103/67 (79) 112/44 (66) Pulse Ox 98 98 96 97 O2 Delivery Nasal Cannula Nasal Cannula Nasal Cannula Nasal Cannula O2 Flow Rate 5.00 3.00 3.00 3.00 12/06/18 12/06/18 12/06/18 12/06/18 03:30 04:00 04:00 04:00 Temp 98.1 Pulse 100 93 Resp 20 18 B/P (MAP) 120/64 (82) 109/68 (82) Pulse Ox 94 97 96 O2 Delivery Nasal Cannula Nasal Cannula Nasal Cannula O2 Flow Rate 3.00 3.00 3.00 12/06/18 12/06/18 12/06/18 12/06/18 05:00 06:00 06:32 08:47 Pulse 97 103 108 Resp 18 25 B/P (MAP) 134/108 (117) 153/91 (111) Pulse Ox 97 97 95 O2 Delivery Nasal Cannula Nasal Cannula Nasal Cannula O2 Flow Rate 3.00 3.00 5.00 Capillary Refill : Less Than 3 Seconds Constitutional: AAO x 3, well-developed, well-nourished HEENT: PERRL, hearing is well preserved, oral hygience is good; No ulceration, No xanthelasmas are seen Neck: carotid bruit, carotid pulses are 2 + bilaterally Respiratory: chest expansion is symmetric, chest is bilaterally symmetric, rhonchi (scattered), other (prolonged expiratory phase) Cardiovascular: No JVD; tachycardia, S1 and S2, systolic murmur Gastrointestinal: soft, round, audible bowel sounds (hypoactive) Rectal: deferred Extremities: no lower extremity edema bilateral Neurologic/Psychiatric: grossly intact, power is 5/5 both on sides Skin: No rash, No ulcerations; other (multiple abrasions to knees and arms which are under dressings not removed; multiple bruises to arms and legs bilat) Data Review Labs Laboratory Tests 12/05/18 17:20: White Blood Count 12.4H, Red Blood Count 3.90L, Hemoglobin 12.2, Hematocrit 37, Mean Corpuscular Volume 96, Mean Corpuscular Hemoglobin 31, Mean Corpuscular Hemoglobin Concent 33, Red Cell Distribution Width 13.3, Platelet Count 353, Mean Platelet Volume 8.5, Neutrophils (%) (Auto) 73, Lymphocytes (%) (Auto) 14, Monocytes (%) (Auto) 10, Eosinophils (%) (Auto) 4, Basophils (%) (Auto) 0, Neutrophils # (Auto) 9.0H, Lymphocytes # (Auto) 1.7, Monocytes # (Auto) 1.2H, Eosinophils # (Auto) 0.4H, Basophils # (Auto) 0.1, Prothrombin Time 12.4, INR Comment 0.9, Activated Partial Thromboplast Time 33, Sodium Level 140, Potassium Level 4.8, Chloride Level 101, Carbon Dioxide Level 28, Anion Gap 11, Blood Urea Nitrogen 27H, Creatinine 1.53H, Estimat Glomerular Filtration Rate 33 , BUN/Creatinine Ratio 18, Glucose Level 135H, Calcium Level 9.9, Corrected Calcium 9.6, Total Bilirubin 0.3, Aspartate Amino Transf (AST/SGOT) 29, Alanine Aminotransferase (ALT/SGPT) 21, Alkaline Phosphatase 69, Myoglobin 447.4H, Troponin I 0.529*H, Total Protein 7.8, Albumin 4.4 12/05/18 17:41: Urine Color YELLOW, Urine Clarity SLIGHTLY CLOUDY, Urine pH 6, Urine Specific [place] 1.015L, Urine Protein 3+H, Urine Glucose (UA) NEGATIVE, Urine Ketones NEGATIVE, Urine Nitrite NEGATIVE, Urine Bilirubin NEGATIVE, Urine Urobilinogen NORMAL, Urine Leukocyte Esterase 3+H, Urine RBC (Auto) 2+H, Urine RBC RARE, Urine WBC 10-25H, Urine Squamous Epithelial Cells RARE, Urine Crystals NONE, Urine Bacteria TRACE, Urine Casts PRESENT, Urine Hyaline Casts RARE, Urine Mucus NEGATIVE, Urine Culture Indicated YES 12/05/18 19:43: Digoxin Level 0.51L 12/06/18 00:45: Activated Partial Thromboplast Time 62H 12/06/18 03:10: White Blood Count 12.7H, Red Blood Count 3.42L, Hemoglobin 10.7L, Hematocrit 32L , Mean Corpuscular Volume 95, Mean Corpuscular Hemoglobin 31, Mean Corpuscular Hemoglobin Concent 33, Red Cell Distribution Width 13.1, Platelet Count 292, Mean Platelet Volume 8.9, Neutrophils (%) (Auto) 74, Lymphocytes (%) (Auto) 14, Monocytes (%) (Auto) 10, Eosinophils (%) (Auto) 1, Basophils (%) (Auto) 0, Neutrophils # (Auto) 9.5H, Lymphocytes # (Auto) 1.8, Monocytes # (Auto) 1.3H, Eosinophils # (Auto) 0.2, Basophils # (Auto) 0.1, Sodium Level 137, Potassium Level 4.2, Chloride Level 101, Carbon Dioxide Level 25, Anion Gap 11, Blood Urea Nitrogen 30H, Creatinine 1.42H, Estimat Glomerular Filtration Rate 36, BUN/ Creatinine Ratio 21, Glucose Level 136H, Calcium Level 9.3, Phosphorus Level 3.3 , Magnesium Level 2.6H, Troponin I 4.049*H, Triglycerides Level 154H, Cholesterol Level 149, LDL Cholesterol Direct 81, VLDL Cholesterol 31, HDL Cholesterol 38L 12/06/18 08:00: Activated Partial Thromboplast Time 41H Laboratory Tests 12/05/18 17:20 12/06/18 03:10 A/P-Cardiology Assessment/Admission Diagnosis Ac NSTEMI S/P non-syncopal fall on 12-05-18 resulting in multiple abrasions Chronic kidney disease, stage 3 TIA on Mar 08 2018 for which she was seen in the ED 24 Hour Holter of May 26, 2018 showed NSR with frequent PVC's and PAC's Severe chronic obstructive pulmonary disease due to prior tobaccoism. Tobaccoism that she quit in 2005. H/O cardiomyopathy with an ejection fraction of 30%, both ischemic and non- ischemic per cardiac catheterization from December 2008. Most recent echocardiogram of May 2017 showed LVEF 55-60%. Mild to mod AoR, TR, and MR. Diastolic dysfunction. History of non-ST elevation myocardial infarction. Cardiac catheterizations, including the last one of December 2008, have demonstrated only angiographically mild coronary artery disease. Non-ST elevation myocardial infarction was felt to be due to small-vessel disease. Palpitations, probably related to known paroxysmal supraventricular tachycardia/ atrial fibrillation, currently controlled. The patient is considered intolerant to warfarin for several reasons, including episodes of marked epistaxis and hemoptysis, even without warfarin therapy. Also, she is prone to falls, given her generalized frail status. She refuses any oral anticoagulants; agrees only to aspirin for stroke prophylaxis Severe anxiety, currently controlled. Osteoporosis. Gastroesophageal reflux. Degenerative joint disease. H/O intermittent congestive heart failure due to diastolic and systolic dysfunction of the left ventricle, currently controlled. Chronic anemia being followed by Dr. Paz. Hyperlipidemia, well controlled on therapy with simvastatin. H/o left cataract surgery. Mild ascending aortic aneurysm measuring 4.2 cm found incidentally on a CT scan or 07/10/[address] King [place] nodules being followed by Dr King Carotid u/s of 04/19/18: less than 40% ROSY, 50-60% LICA stenoses Diagnosis of hypothryroidism in April 2018, managed by Dr Paz, but she has been noncompliant with thryroid replacement therapy Discussion and Recomendations NSTEMI - we have advised cardiac cath. We have discussed the procedure, risks, benefits and potential complications including the risk of worsening renal function in the presence of already existing CKD stage 3. She verbalizes understanding and wishes to proceed. We will give IVF pre and post procedure to reduce risk of contrast nephropathy. Continue home medications including ASA, ARB and DIG Check Dig level Further recs will be based on her hospital course Clinical Quality Measures DVT/VTE Risk/Contraindication: Risk Factor Score Per Nursin RFS Level Per Nursing on Admit: 3=High CASSIE ARANA MD FACP FAC CCDS Dec 06, 2018 09:26
[2018-12-06] MEDS ORDERED: LIDOCAINE 1% INJ 20 ML 20 ML VIAL ONE (09:37)
[2018-12-06] MEDS ORDERED: HEParin (CATH LAB) 2,000 ML IV ONE (09:37)
[2018-12-06] MEDS ORDERED: ALBU18HF2 INH (09:46)
[2018-12-06] MEDS ORDERED: ASPI-983 PO (09:46)
[2018-12-06] MEDS ORDERED: FLUT12AE6 INH (09:46)
[2018-12-06] MEDS ORDERED: FAMO20TA3 PO (09:46)
[2018-12-06] MEDS ORDERED: FURO40TA4 PO (09:46)
--- NOTE | 2018-12-06 09:47 | NUR ---
WENT OVER THE EXT MED HX WITH THE PATIENT. SHE VERIFIED HOW SHE TAKES THEM.
[2018-12-06] MEDS: RT-ADVAIR HFA 115/21 MCG PER PUFF IH SCH ×3 (10:26→19:05)
[2018-12-06] MEDS: UMECLIDINIUM BROMIDE (INCRUSE ELLIPTA) 7'S IH SCH (10:27)
--- NOTE | 2018-12-06 11:34 | OPERATIVE REPORT ---
DATE OF SERVICE: The patient is a 78-year-old lady who was admitted with a non-syncopal fall. She had had some epigastric discomfort. Troponin was elevated, suggestive of acute non-ST elevation myocardial infarction. Cardiac catheterization was carried out after having obtained an informed consent. DESCRIPTION OF PROCEDURE: She was brought to the cardiac catheterization laboratory. Vigorous perioperative hydration was started considerably prior to the procedure, continued throughout the procedure and afterwards. This was to reduce risk of contrast nephropathy, given her baseline renal insufficiency. The right groin was prepped and draped in the usual sterile fashion. Lidocaine 1% was used for local anesthesia. Modified Seldinger technique was used to advance a 5-Ukrainian sheath into the right femoral vein and a 5-Ukrainian sheath in the right femoral artery. We used the arterial sheath to carry out left heart catheterization. We used a 5-Ukrainian JL4 catheter for left coronary angiography, 5-Ukrainian JR4 catheter for right coronary angiography, and 5-Ukrainian pigtail catheter for left heart catheterization. We did not perform left ventricular angiography. This was to conserve contrast, given the patient's renal insufficiency. At the end of procedure, following removal of the catheters, manual pressure was used to achieve hemostasis following sheath removal. She tolerated the procedure well. HEMODYNAMICS: Left ventricular end-diastolic pressure following coronary angiography was 19 mmHg. There is no significant pressure gradient on pullback across the aortic valve. Ascending aortic pressure was 106/57 with a mean of 76 mmHg. LEFT VENTRICULAR ANGIOGRAPHY: Left ventricular angiography was not performed to conserve contrast. CORONARY ANGIOGRAPHY: Minimal coronary calcification is seen. Left main coronary artery, left anterior descending artery, left circumflex artery, right coronary artery do not exhibit any angiographically significant obstructive coronary artery disease. Right coronary artery is dominant. CONCLUSIONS: 1. Angiographically minimal coronary artery disease. 2. Elevated left ventricular end-diastolic pressure. DISCUSSION AND RECOMMENDATIONS: Based on the results of this study, there is no evidence of any significant obstructive epicardial coronary artery disease. Her mild troponin elevation may have been acute non-ST elevation myocardial infarction due to small vessel disease and/or hypoxemia due to advanced chronic obstructive pulmonary disease. Continue risk factor modification and conservative management is pursued. Job ID: [id number] DocumentID: [id number] Dictated Date: 12/06/2018 11:10:07 Vessel Scrapper Helper Date: 12/06/2018 11:33:29 Dictated By: CASSIE ARANA MD, MA, FACP, FACC,
--- NOTE | 2018-12-06 19:14 | History & Physicial ---
History of Present Illness History of Present Illness Reason for visit/HPI This is a 78 year old female who was in the parking lot of a local store getting into her car when the wind caught her car door striking her and causing her to fall. She did not lose consciousness or hit her head so she drove home. However, she was unable to stop the bleeding from her left wrist skin tear so she called EMS. She was brought to the ER where her wounds were bandaged. HOwever, she was complaining of some chest tightness so cardiac enzymes were done which did show an elevated troponin level. Cardiology was consulted and wanted the patient admitted to pursue a cardiac catheterization. Date of Admission Dec 05, 2018 at 19:14 Date Seen by a Provider: Dec 06, 2018 Time Seen by a Provider: 12:45 I consulted on this patient on 12/06/18 19:09 Attending Physician Ruthie Mcgee DO Admitting Physician Ruthie Mcgee DO Consult DIVYA PEREZ MD Allergies and Home Medications Allergies Coded Allergies: diphenhydramine HCl (Unverified Allergy, Severe, anaphalaxis, 09/10/14) Pt states this happened several yrs ago and that she had almost forgotten about it because she has avoided t for so long. fentanyl (Unverified Allergy, Mild, 09/10/14) PT DOES NOT WANT TO TAKE--SHE STAES IT MADE HER COPD WORSE midazolam (Unverified Allergy, Mild, PT TAKE LIBRIUM AT HOME, 09/10/14) PT DOESN'T WANT TO TAKE--SHE STATED IT MADE HER COPD OWRSE. Beta-Blockers (Beta-Adrenergic Bloc (Verified Allergy, Unknown, 09/10/14) Cephalosporins (Verified Allergy, Unknown, HAS RECEIVED CEFEPIME IN PAST W /O PROBLEM, 09/14/14) Penicillins (Verified Allergy, Unknown, HAS REC AZACTAM IN PAST WITHOUT PROBLEMS, 09/10/14) risedronic acid (Verified Allergy, Unknown, 09/10/14) prednisone (Unverified Adverse Reaction, Intermediate, Large doses cause SOA, 09/10/14) meperidine (Unverified Adverse Reaction, Mild, NAUSEA, 09/10/14) propofol (Unverified Adverse Reaction, Mild, 09/10/14) PT DOES NOT WANT TO TAKE--SHE STATES IT MADE HER COPD WORSE erythromycin base (Verified Adverse Reaction, Unknown, MAKES PATIENT NAUSEADED, 09/10/14) Home Medications Albuterol Sulfate 2.5 Mg/3 Ml Vial.neb, 2.5 MG NEB Q3H PRN for SHORTNESS OF BREATH, (Reported) Albuterol Sulfate 18 Gm Hfa.aer.ad, 2 PUFF INH Q4H PRN for SHORTNESS OF BREATH, (Reported) Aspirin 81 Mg Tablet.dr, 81 MG PO DAILY, (Reported) Carboxymethylcellulos/Glycerin 15 Ml Drops, 1 DROP OU TID PRN for DRY EYES, ( Reported) Chlordiazepoxide HCl 25 Mg Capsule, 25 MG PO BID, (Reported) Digoxin 125 Mcg Tablet, 62.5 MG PO DAILY, (Reported) TAKES 1/2 OF A (125 MCG) TABLET Diltiazem HCl 120 Mg Cap.er.24h, 120 MG PO DAILY, (Reported) Famotidine 20 Mg Tablet, 20 MG PO BID PRN for HEARTBURN, (Reported) Fluticasone/Salmeterol 12 Gm Hfa.aer.ad, 2 PUFF INH BID, (Reported) Furosemide 40 Mg Tablet, 20 MG PO DAILY, (Reported) TAKES 1/2 (40MG) TABLET Hydroxyzine HCl 10 Mg Tablet, 10 MG PO HS, (Reported) Losartan Potassium 50 Mg Tablet, 50 MG PO BID, (Reported) Mirtazapine 30 Mg Tablet, 30 MG PO HS, (Reported) Potassium Chloride 10 Meq Tablet.er, 10 MEQ PO DAILY, (Reported) Sennosides/Docusate Sodium 1 Each Tablet, 2 TAB PO DAILY PRN for CONSTIPATION- 6TH LINE, (Reported) Simvastatin 40 Mg Tablet, 40 MG PO HS, (Reported) Tiotropium [place] 1 Inh Aerp, 1 CAP IH DAILY, (Reported) Patient Home Medication List Home Medication List Reviewed: Yes Past [id number]-[id number]-Tmyplg Hx Patient Social History Marrital Status: Alcohol Use: Denies Use Recreational Drug Use: No Smoking Status: Former Smoker Former Smoker, Quit: Apr 12, 2006 Type Used: Cigarettes 2nd Hand Smoke Exposure: No Recent Foreign Travel: No Contact w/other who traveled: No Recent Hopitalizations: No Recent Infectious Disease Expo: No Immunizations Up To Date Tetanus Booster (TDap): More than 5yrs Pediatric: Yes Date of Pneumonia Vaccine: Jul 09, 2012 Date of Influenza Vaccine: Aug 08, 2018 Seasonal Allergies Seasonal Allergies: Yes Surgeries Yes (thoracotomy) Appendectomy, Gallbladder, Tonsillectomy Respiratory Yes (HOME O2 AT 3L) Currently Using CPAP: No Currently Using BIPAP: No Cardiovascular Yes (ISCHEMIC CARDIOMYOPATHY) Atrial Fibrillation, Hypertension Neurological No Reproductive System Hx Reproductive Disorders: No Sexually Transmitted Disease: No HIV/AIDS: No Female Reproductive Disorders: Denies Genitourinary No Gastrointestinal Yes Gastroesophageal Reflux, Diverticulosis, Hemorrhoids, Hiatal Hernia, Gall Bladder Disease Musculoskeletal Yes Arthritis Endocrine History of Endocrine Disorders: No HEENT History of HEENT Disorders: Yes (cataract removal) HEENT Disorders: Cataract Loss of Vision: Denies Hearing Impairment: Hard of Hearing Cancer No Psychosocial History of Psychiatric Problem: Yes Behavioral Health Disorders: Anxiety, PTSD Integumentary History of Skin or Integumenta: No Blood Transfusions History of Blood Disorders: No Adverse Reaction to a Blood Tr: No Family Medical History Significant Family History: No Pertinent Family Hx Family Hx: Alcoholism SONS Asthma DAUGHTER SONS Cardiovascular disease 19 MOTHER Cataracts 19 MOTHER Deafness or hearing loss G8 SISTER Diabetes mellitus SONS Gastroenteritis SONS Headache disorder SONS Hypertension SONS Myocardial infarction 19 FATHER Psychosocial problem 19 MOTHER No Family History of: AIDS Abdominal aortic aneurysm [place]'s disease Alzheimer's disease Aphasia Arthritis Cancer of mouth Colon cancer Completed stroke Congenital disease Congenital heart disease Coronary thrombosis Cystic fibrosis Dementia Drug abuse Dysphasia Fibrocystic disease of breast Glaucoma Hypercholesterolemia Infertility Kidney disease Neoplasm Not obtainable due to adoption Osteoporosis Parkinson's disease Prostate cancer Respiratory disorder Seizure disorder Severe allergy Thyroid disease Tuberculosis Visual disorder Review of Systems Constitutional: weakness Respiratory: short of breath Cardiovascular: chest pain Gastrointestinal: No RUQ, No LUQ, No RLQ, No LLQ, No no symptoms reported, No see HPI, No abdominal pain, No constipation, No diarrhea, No dysphagia, No hematemesis, No heartburn, No jaundice, No loss of appetite, No melena, No nausea, No vomiting, No other Genitourinary: No no symptoms reported, No see HPI, No decreased output, No discharge, No dysuria, No frequency, No hematuria, No hesitancy, No incontinence , No nocturia, No pain, No other Musculoskeletal: joint swelling (left knee) Skin: other (abrasions to both knees and large skin tear to left wrist) Psychiatric/Neurological: Anxiety, Weakness Physical Exam Vital Signs Vital Signs - First Documented 12/05/18 12/05/18 12/05/18 16:07 21:18 22:12 Temp 98.4 Pulse 112 Resp 21 B/P (MAP) 122/98 (106) Pulse Ox 99 O2 Delivery Nasal Cannula O2 Flow Rate 3.00 FiO2 40 Capillary Refill : Less Than 3 Seconds Height, Weight, BMI Height: 5'0.00" Weight: 106lbs. 9.0oz. [id number]; 20.6 BMI Method:Stated General Appearance: No Apparent Distress HEENT: Normal ENT Inspection Neck: Supple Respiratory: Decreased Breath Sounds, Rhonci, Wheezing Cardiovascular: Regular Rate, Rhythm, Systolic Murmur Gastrointestinal: Normal Bowel Sounds, Non Tender, Soft Rectal: Deferred Back: No CVA Tenderness Extremity: Non Tender, No Calf Tenderness, No Pedal Edema Neurologic/Psychiatric: Other (groggy from cardiac cath) Skin: Ecchymosis (left knee), Other (abrasions bilateral knee) Comments Laboratory Tests 12/05/18 19:43: Digoxin Level 0.51L 12/06/18 00:45: Activated Partial Thromboplast Time 62H 12/06/18 03:10: White Blood Count 12.7H, Red Blood Count 3.42L, Hemoglobin 10.7L, Hematocrit 32L , Mean Corpuscular Volume 95, Mean Corpuscular Hemoglobin 31, Mean Corpuscular Hemoglobin Concent 33, Red Cell Distribution Width 13.1, Platelet Count 292, Mean Platelet Volume 8.9, Neutrophils (%) (Auto) 74, Lymphocytes (%) (Auto) 14, Monocytes (%) (Auto) 10, Eosinophils (%) (Auto) 1, Basophils (%) (Auto) 0, Neutrophils # (Auto) 9.5H, Lymphocytes # (Auto) 1.8, Monocytes # (Auto) 1.3H, Eosinophils # (Auto) 0.2, Basophils # (Auto) 0.1, Sodium Level 137, Potassium Level 4.2, Chloride Level 101, Carbon Dioxide Level 25, Anion Gap 11, Blood Urea Nitrogen 30H, Creatinine 1.42H, Estimat Glomerular Filtration Rate 36, BUN/ Creatinine Ratio 21, Glucose Level 136H, Calcium Level 9.3, Phosphorus Level 3.3 , Magnesium Level 2.6H, Troponin I 4.049*H, Triglycerides Level 154H, Cholesterol Level 149, LDL Cholesterol Direct 81, VLDL Cholesterol 31, HDL Cholesterol 38L 12/06/18 08:00: Activated Partial Thromboplast Time 41H 12/06/18 12:49: Activated Partial Thromboplast Time 46H 12/06/18 18:00: Activated Partial Thromboplast Time 32 Microbiology 12/05/18 Urine Culture - Final, Complete See Report Assessment/Plan Assessment and Plan 1. Acute non STEMI--admit to cardiac in ICU on Brilinta and Heparin with cardiac catheterization by cardiology 2. Hypertension--resume home meds 3. COPD--oxygen, nebulizer treatments 4. UTI--started on Bactrim 5. Chronic Anemia--monitor H/H 6. Left wrist skin tear and abrasions from fall--dressed and will monitor for bleeding with blood thinners Admission Diagnosis Admission Status: Inpatient Order (span 2 midnights) Reason for Inpatient Admission: Non STEMI will require workup and then monitoring due to blood thinners and monitoring H/H and wounds for bleeding as well as treatment of UTI Clinical Quality Measures DVT/VTE Risk/Contraindication: Risk Factor Score Per Nursin RFS Level Per Nursing on Admit: 3=High RUTHIE MCGEE DO Dec 06, 2018 19:14
[2018-12-06] MEDS: MIRTAZAPINE 15 MG (REMERON) TAB PO SCH (20:42)
[2018-12-06] MEDS: ATORVASTATIN 40 MG (LIPITOR) TABLET PO SCH (20:42)
[2018-12-06] MEDS: hydrOXYzine (ATARAX) 10 MG TAB PO SCH (21:33)
[2018-12-07] VITALS (28 sets, daily range): BP systolic 101–178; BP diastolic 45–87
[2018-12-07] MEDS: RT-ALBUTEROL SULF 2.5 MG/3 ML PRE-MIX VIAL INH SCH ×5 (02:14→20:29)
[2018-12-07] MEDS: ACETAMINOPHEN 325 MG TABLET PO SCH ×4 (03:25→23:24)
[2018-12-07 04:02] LABS: BASOPHILS % (AUTO) 0 % (0-10); EOSINOPHILS # (AUTO) 0.1 10^3/uL (0.0-0.3); EOSINOPHILS % (AUTO) 1 % (0-10); HEMATOCRIT 33 % (35-52); HEMOGLOBIN 10.5 G/DL (11.5-16.0); LYMPHOCYTES # (AUTO) 2.3 X 10^3 (1.0-4.0); LYMPHOCYTES % (AUTO) 13 % (12-44); MEAN CORPUSCULAR HEMOGLOBIN 31 PG (25-34); MEAN CORPUSCULAR HGB CONC 32 G/DL (32-36); MEAN CORPUSCULAR VOLUME 96 FL (80-99); MONOCYTES # (AUTO) 2.7 X 10^3 (0.0-1.0); MONOCYTES % (AUTO) 15 % (0-12); NEUTROPHILS # (AUTO) 12.6 X 10^3 (1.8-7.8); NEUTROPHILS % (AUTO) 71 % (42-75); PLATELET COUNT 283 10^3/uL (130-400); RED CELL DISTRIBUTION WIDTH 13.7 % (10.0-14.5); WHITE BLOOD COUNT 17.7 10^3/uL (4.3-11.0)
[2018-12-07 04:34] LABS: BAND NEUTROPHILS 2 %; LYMPHOCYTES % (MANUAL) 12 %; MONOCYTES % (MANUAL) 10 %; NEUTROPHILS % (MANUAL) 76 %
[2018-12-07 04:35] LABS: RBC MORPH NORMAL
[2018-12-07 05:05] LABS: CALCIUM 9.1 MG/DL (8.5-10.1); CREATININE SERUM 1.7 MG/DL (0.60-1.30); MAGNESIUM 2.3 MG/DL (1.8-2.4); PHOSPHORUS 3.3 MG/DL (2.3-4.7); POTASSIUM 4.6 MMOL/L (3.6-5.0)
[2018-12-07] MEDS: POTASSIUM CL 10MEQ/50ML IVPB 50 ML IV SCH (05:24)
[2018-12-07] MEDS: MAGNESIUM 1 GM/100 ML IVPB 100 ML IV SCH (05:24)
[2018-12-07] MEDS: KCL 20 MEQ TAB (K-DUR) PO SCH (05:25)
[2018-12-07] MEDS: FUROSEMIDE 20 MG (LASIX) TAB PO SCH (06:09)
--- NOTE | 2018-12-07 08:00 | Progress Note-Cardiology ---
Cardiology SOAP Progress Note Subjective: No cp Chronic shortness of breath Gen body pains after recent fall No palp or syncope Objective: I&O/Vital Signs 12/06/18 12/06/18 12/06/18 12/06/18 20:00 21:00 22:06 22:43 Pulse 83 86 82 Resp B/P (MAP) 95/56 (69) 107/61 (76) 142/54 (83) Pulse Ox 93 93 92 93 O2 Delivery Nasal Cannula Nasal Cannula Nasal Cannula Nasal Cannula O2 Flow Rate 3.00 3.00 4.00 3.00 12/06/18 12/07/18 12/07/18 12/07/18 23:00 00:00 01:00 01:00 Pulse 79 73 77 77 Resp 20 B/P (MAP) 120/58 (78) 123/58 (79) 130/63 (85) Pulse Ox 94 96 100 O2 Delivery Nasal Cannula Nasal Cannula Nasal Cannula O2 Flow Rate 3.00 3.00 3.00 12/07/18 12/07/18 12/07/18 12/07/18 02:00 02:15 03:00 03:32 Temp 97.7 Pulse 74 74 Resp B/P (MAP) 101/45 (63) 111/63 (79) Pulse Ox 97 98 95 O2 Delivery Nasal Cannula Nasal Cannula Nasal Cannula O2 Flow Rate 3.00 4.00 3.00 12/07/18 12/07/18 12/07/18 12/07/18 03:35 03:40 04:00 05:00 Pulse 98 93 87 87 Resp B/P (MAP) 127/77 (94) 140/67 (91) Pulse Ox 83 92 95 95 O2 Delivery Nasal Cannula Nasal Cannula Nasal Cannula Nasal Cannula O2 Flow Rate 4.00 4.00 4.00 4.00 12/07/18 12/07/18 06:00 06:12 Pulse 85 Resp 18 B/P (MAP) 119/53 (75) Pulse Ox 95 98 O2 Delivery Nasal Cannula Nasal Cannula O2 Flow Rate 4.00 3.00 12/07/18 00:00 Intake Total 1480 ml Output Total 600 ml Balance 880 ml Weight (Pounds): 106 Weight (Ounces): 9.0 Weight (Calculated Kilograms): 48.764608 Constitutional: AAO x 3, well-developed, well-nourished Respiratory: chest expansion is symmetric, chest is bilaterally symmetric, rhonchi (scattered), other (prolonged expiratory phase) Cardiovascular: No JVD; tachycardia, S1 and S2, systolic murmur Gastrointestional: soft, round, audible bowel sounds (hypoactive) Extremities: no lower extremity edema bilateral Neurologic/Psychiatric: grossly intact, power is 5/5 both on sides Skin: No rash, No ulcerations; other (multiple abrasions to knees and arms which are under dressings not removed; multiple bruises to arms and legs bilat) Results/Procedures: Labs Laboratory Tests 12/06/18 08:00: Activated Partial Thromboplast Time 41H 12/06/18 12:49: Activated Partial Thromboplast Time 46H 12/06/18 18:00: Activated Partial Thromboplast Time 32 12/07/18 00:55: Activated Partial Thromboplast Time 36H 12/07/18 03:50: White Blood Count 17.7H, Red Blood Count 3.39L, Hemoglobin 10.5L, Hematocrit 33L , Mean Corpuscular Volume 96, Mean Corpuscular Hemoglobin 31, Mean Corpuscular Hemoglobin Concent 32, Red Cell Distribution Width 13.7, Platelet Count 283, Mean Platelet Volume 9.0, Neutrophils (%) (Auto) 71, Lymphocytes (%) (Auto) 13, Monocytes (%) (Auto) 15H, Eosinophils (%) (Auto) 1, Basophils (%) (Auto) 0, Neutrophils # (Auto) 12.6H, Lymphocytes # (Auto) 2.3, Monocytes # (Auto) 2.7H, Eosinophils # (Auto) 0.1, Basophils # (Auto) 0.0, Neutrophils % (Manual) 76, Lymphocytes % (Manual) 12, Monocytes % (Manual) 10, Band Neutrophils 2, Blood Morphology Comment NORMAL, Sodium Level 136, Potassium Level 4.6, Chloride Level 101, Carbon Dioxide Level 24, Anion Gap 11, Blood Urea Nitrogen 31H, Creatinine 1.70H, Estimat Glomerular Filtration Rate 29, BUN/Creatinine Ratio 18 , Glucose Level 114H, Calcium Level 9.1, Phosphorus Level 3.3, Magnesium Level 2.3, Digoxin Level 0.81 12/07/18 06:44: Activated Partial Thromboplast Time 37H Microbiology 12/05/18 Urine Culture - Final, Complete See Report Laboratory Tests 12/05/18 17:20 12/06/18 03:10 12/07/18 03:50 A/P: Assessment: Ac NSTEMI, but card cath of 12/06/18 shows only minimal CAD and elevated LVEDP. Cath in 2008, following NSTEMI, had also not shown any significant CAD S/P non-syncopal fall on 12-05-18 resulting in multiple abrasions Chronic kidney disease, stage 3, with some contrast nephropathy post card cath of 12/06/18 TIA on Mar 08 2018 for which she was seen in the ED Severe chronic obstructive pulmonary disease due to prior tobaccoism. Tobaccoism that she quit in 2005. H/O cardiomyopathy with an ejection fraction of 30%, both ischemic and non- ischemic per cardiac catheterization from December 2008. Most recent echocardiogram of May 2017 showed LVEF 55-60%. Mild to mod AoR, TR, and MR. Diastolic dysfunction. Palpitations, probably related to known paroxysmal supraventricular tachycardia/ atrial fibrillation, currently controlled. The patient is considered intolerant to warfarin for several reasons, including episodes of marked epistaxis and hemoptysis, even without warfarin therapy. Also, she is prone to falls, given her generalized frail status. She refuses any oral anticoagulants; agrees only to aspirin for stroke prophylaxis Severe anxiety, currently controlled. Osteoporosis and degenerative joint disease Gastroesophageal reflux. H/O intermittent congestive heart failure due to diastolic and systolic dysfunction of the left ventricle, currently controlled. Chronic anemia being followed by Dr. Paz. Hyperlipidemia, well controlled on therapy with simvastatin. H/o left cataract surgery. Mild ascending aortic aneurysm measuring 4.2 cm found incidentally on a CT scan or 07/10/[address] King [place] nodules being followed by Dr King Carotid u/s of 04/19/18: less than 40% ROSY, 50-60% LICA stenoses Diagnosis of hypothyroidism in April 2018, managed by Dr Paz, but she has been noncompliant with thyroid replacement therapy Plan: * Multiple issues reviewed and discussed * Continue iv fluids in effort to reduce further contrast-related kidney injury * Reduce ARB * Monitor labs closely * May transfer to floor * I discussed her CV issues with her in detail. I went over the details of cath findings and our plan of treatment CASSIE ARANA MD FACP FAC CCDS Dec 07, 2018 08:00
--- NOTE | 2018-12-07 08:10 | Diagnostic Imaging Report ---
INDICATION: Heart disease. Comparison made with prior examination 12/06/2018. FINDINGS: There is mild cardiomegaly. There is right basilar pneumonia. There is some scarring or atelectasis in left upper lobe. There is no pneumothorax. Mediastinum is unremarkable. IMPRESSION: Right basilar infiltrate suspect for pneumonia. Scarring or atelectasis in the left upper lobe. Dictated by: Dictated on workstation # [id number]
[2018-12-07] MEDS: DILTIAZEM 120 MG (CARDIZEM CD) CAP PO SCH (08:48)
[2018-12-07] MEDS: DIGOXIN 62.5 MCG (LANOXIN) TAB PO SCH (08:48)
[2018-12-07] MEDS: TRIM/SULFAMETH 160/800 (SEPTRA DS) TAB PO SCH (08:48)
[2018-12-07] MEDS: KCL 10 MEQ TAB (MICRO K) PO SCH (08:48)
[2018-12-07] MEDS: ASPIRIN E.C. 81 MG (ECOTRIN) TAB PO SCH (08:49)
[2018-12-07] MEDS: LOSARTAN 25 MG (COZAAR) TAB PO SCH (08:49)
[2018-12-07] MEDS: LORazepam 1 MG (ATIVAN) TAB PO SCH ×2 (08:49→20:52)
[2018-12-07] MEDS: UMECLIDINIUM BROMIDE (INCRUSE ELLIPTA) 7'S IH SCH (09:17)
[2018-12-07] MEDS: RT-ADVAIR HFA 115/21 MCG PER PUFF IH SCH ×2 (09:17→14:18)
--- NOTE | 2018-12-07 11:25 | NUR ---
Attempted visit, pt was asleep.
[2018-12-07] MEDS ORDERED: methylPREDNISolone 125 MG (Solu-MEDROL) VIAL IVP NR ×2 (12:45→17:15)
[2018-12-07] MEDS ORDERED: MEROPENEM 500 MG in NS (IVPB) 100 ML IV SCH (12:47)
[2018-12-07] MEDS: ARTIFICAL TEARS 0.4 ML UNIT DOSE (REFRESH PLUS) OU SCH ×2 (13:43→20:51)
[2018-12-07] MEDS: NS IV 1000 ML 1,000 ML IV SCH (13:52)
[2018-12-07] MEDS: LACTOBACILLUS ACIDOPHILUS (PROBIOTIC) CAPSULE PO SCH ×2 (13:52→17:30)
--- NOTE | 2018-12-07 16:53 | Pulmonary Consultation ---
History of Present Illness History of Present Illness Date of Consultation 12/07/18 17:00 Time Seen by Provider: 17:00 Date of Admission History of Present Illness 78yo admitted to ICU from ED secondary to s/p fall. She did not hit her head and she did not loose consciousness. She drove herself [facility] to home. She normally uses oxygen 3 liters/min at home. She denies SOB, wheezing. SHe does complain of substernal CP. I am consulted for ICU management. Allergies and Home Medications Allergies Coded Allergies: diphenhydramine HCl (Unverified Allergy, Severe, anaphalaxis, 09/10/14) Pt states this happened several yrs ago and that she had almost forgotten about it because she has avoided t for so long. fentanyl (Unverified Allergy, Mild, 09/10/14) PT DOES NOT WANT TO TAKE--SHE STAES IT MADE HER COPD WORSE midazolam (Unverified Allergy, Mild, PT TAKE LIBRIUM AT HOME, 09/10/14) PT DOESN'T WANT TO TAKE--SHE STATED IT MADE HER COPD OWRSE. Beta-Blockers (Beta-Adrenergic Bloc (Verified Allergy, Unknown, 09/10/14) Cephalosporins (Verified Allergy, Unknown, HAS RECEIVED CEFEPIME IN PAST W /O PROBLEM, 09/14/14) Penicillins (Verified Allergy, Unknown, HAS REC AZACTAM IN PAST WITHOUT PROBLEMS, 09/10/14) risedronic acid (Verified Allergy, Unknown, 09/10/14) prednisone (Unverified Adverse Reaction, Intermediate, Large doses cause SOA, 09/10/14) meperidine (Unverified Adverse Reaction, Mild, NAUSEA, 09/10/14) propofol (Unverified Adverse Reaction, Mild, 09/10/14) PT DOES NOT WANT TO TAKE--SHE STATES IT MADE HER COPD WORSE erythromycin base (Verified Adverse Reaction, Unknown, MAKES PATIENT NAUSEADED, 09/10/14) Home Medications Albuterol Sulfate 2.5 Mg/3 Ml Vial.neb, 2.5 MG NEB Q3H PRN for SHORTNESS OF BREATH, (Reported) Albuterol Sulfate 18 Gm Hfa.aer.ad, 2 PUFF INH Q4H PRN for SHORTNESS OF BREATH, (Reported) Aspirin 81 Mg Tablet.dr, 81 MG PO DAILY, (Reported) Carboxymethylcellulos/Glycerin 15 Ml Drops, 1 DROP OU TID PRN for DRY EYES, ( Reported) Chlordiazepoxide HCl 25 Mg Capsule, 25 MG PO BID, (Reported) Digoxin 125 Mcg Tablet, 62.5 MG PO DAILY, (Reported) TAKES 1/2 OF A (125 MCG) TABLET Diltiazem HCl 120 Mg Cap.er.24h, 120 MG PO DAILY, (Reported) Famotidine 20 Mg Tablet, 20 MG PO BID PRN for HEARTBURN, (Reported) Fluticasone/Salmeterol 12 Gm Hfa.aer.ad, 2 PUFF INH BID, (Reported) Furosemide 40 Mg Tablet, 20 MG PO DAILY, (Reported) TAKES 1/2 (40MG) TABLET Hydroxyzine HCl 10 Mg Tablet, 10 MG PO HS, (Reported) Losartan Potassium 50 Mg Tablet, 50 MG PO BID, (Reported) Mirtazapine 30 Mg Tablet, 30 MG PO HS, (Reported) Potassium Chloride 10 Meq Tablet.er, 10 MEQ PO DAILY, (Reported) Sennosides/Docusate Sodium 1 Each Tablet, 2 TAB PO DAILY PRN for CONSTIPATION- 6TH LINE, (Reported) Simvastatin 40 Mg Tablet, 40 MG PO HS, (Reported) Tiotropium [place] 1 Inh Aerp, 1 CAP IH DAILY, (Reported) Past Fjuzsid-Vhqmun-Sqresv Hx Patient Social History Alcohol Use: Denies Use Recreational Drug Use: No Smoking Status: Former Smoker Type Used: Cigarettes Former Smoker, Quit: Apr 12, 2006 2nd Hand Smoke Exposure: No Recent Foreign Travel: No Contact w/Someone Who Travel: No Recent Infectious Disease Expo: No Recent Hopitalizations: No Physical Abuse: No Sexual Abuse: No Mistreated: No Fear: No Immunizations Up To Date Tetanus Booster (TDap): More than 5yrs PED Vaccines UTD: Yes Date of Pneumonia Vaccine: Jul 09, 2012 Date of Influenza Vaccine: Aug 08, 2018 Seasonal Allergies Seasonal Allergies: Yes Past Medical History Surgeries: Yes (thoracotomy) Appendectomy, Gallbladder, Tonsillectomy Respiratory: Yes (HOME O2 AT 3L) Pneumonia, COPD, Emphysema Currently Using CPAP: No Currently Using BIPAP: No Cardiac: Yes (ISCHEMIC CARDIOMYOPATHY) Atrial Fibrillation, Hypertension Neurological: No Reproductive Disorders: No Female Reproductive Disorders: Denies Sexually Transmitted Disease: No HIV/AIDS: No Genitourinary: No Gastrointestinal: Yes Gastroesophageal Reflux, Diverticulosis, Hemorrhoids, Hiatal Hernia, Gall Bladder Disease Musculoskeletal: Yes Arthritis Endocrine: No HEENT: Yes (cataract removal) Cataract Loss of Vision: Denies Hearing Impairment: Hard of Hearing Cancer: No Psychosocial: Yes Anxiety, PTSD Integumentary: No Blood Disorders: No Adverse Reaction/Blood Tranf: No Family Medical History Alcoholism SONS Asthma DAUGHTER SONS Cardiovascular disease 19 MOTHER Cataracts 19 MOTHER Deafness or hearing loss G8 SISTER Diabetes mellitus SONS Gastroenteritis SONS Headache disorder SONS Hypertension SONS Myocardial infarction 19 FATHER Psychosocial problem 19 MOTHER No Family History of: AIDS Abdominal aortic aneurysm [place]'s disease Alzheimer's disease Aphasia Arthritis Cancer of mouth Colon cancer Completed stroke Congenital disease Congenital heart disease Coronary thrombosis Cystic fibrosis Dementia Drug abuse Dysphasia Fibrocystic disease of breast Glaucoma Hypercholesterolemia Infertility Kidney disease Neoplasm Not obtainable due to adoption Osteoporosis Parkinson's disease Prostate cancer Respiratory disorder Seizure disorder Severe allergy Thyroid disease Tuberculosis Visual disorder No Pertinent Family Hx Review of Systems Time Seen by Provider: 13:39 Constitutional: Weakness, Malaise; No: Fever, Chills, Sweats, Other Eyes: No: Pain, Vision change, Conjunctivae inflammation, Eyelid inflammation, Other, Redness ENT: No: Ear pain, Ear discharge, Nose pain, Nose discharge, Nose congestion, Mouth pain, Mouth swelling, Throat pain, Throat swelling, Other Respiratory: Cough, Shortness of breath, Wheezing Cardiovascular: Chest Pain, Paroxysmal Noc. Dyspnea Gastrointestinal: No: Nausea, Vomiting, Abdominal Pain, Diarrhea, Constipation , Melena, Hematochezia, Other Sepsis Event Evaluation Height, Weight, BMI Height: 5'0.00" Weight: 108lbs. 9.0oz. 48.307456dz; 20.6 BMI Method:Stated Exam Exam Vital Signs Date Time Temp Pulse Resp B/P (MAP) Pulse Ox O2 Delivery O2 Flow Rate FiO2 12/07/18 14:03 96 Nasal Cannula 3.00 12/07/18 13:00 87 12/07/18 12:00 97.6 12/07/18 12:00 Nasal Cannula 4.00 12/07/18 11:00 84 14 117/51 (73) 96 Nasal Cannula 4.00 12/07/18 10:01 98 Nasal Cannula 3.00 12/07/18 10:00 89 17 117/62 (80) 95 Nasal Cannula 4.00 12/07/18 09:00 105 55 140/81 (100) 86 Nasal Cannula 4.00 12/07/18 08:00 97.8 12/07/18 08:00 95 24 149/70 (96) 95 Nasal Cannula 4.00 12/07/18 08:00 Nasal Cannula 4.00 12/07/18 07:00 85 31 115/52 (73) 94 Nasal Cannula 4.00 12/07/18 07:00 95 12/07/18 06:12 98 Nasal Cannula 3.00 12/07/18 06:00 85 18 119/53 (75) 95 Nasal Cannula 4.00 12/07/18 05:00 87 30 140/67 (91) 95 Nasal Cannula 4.00 12/07/18 04:00 Nasal Cannula 3.00 12/07/18 04:00 87 26 127/77 (94) 95 Nasal Cannula 4.00 12/07/18 03:40 93 26 92 Nasal Cannula 4.00 12/07/18 03:35 98 27 83 Nasal Cannula 4.00 12/07/18 03:32 97.7 12/07/18 03:00 74 28 111/63 (79) 95 Nasal Cannula 3.00 12/07/18 02:15 98 Nasal Cannula 4.00 12/07/18 02:00 74 26 101/45 (63) 97 Nasal Cannula 3.00 12/07/18 01:00 77 12/07/18 01:00 77 20 130/63 (85) 100 Nasal Cannula 3.00 12/07/18 00:00 Nasal Cannula 3.00 12/07/18 00:00 73 27 123/58 (79) 96 Nasal Cannula 3.00 12/06/18 23:00 79 28 120/58 (78) 94 Nasal Cannula 3.00 12/06/18 22:43 82 28 142/54 (83) 93 Nasal Cannula 3.00 12/06/18 22:06 92 Nasal Cannula 4.00 12/06/18 21:00 86 22 107/61 (76) 93 Nasal Cannula 3.00 12/06/18 20:00 Nasal Cannula 3.00 12/06/18 20:00 83 26 95/56 (69) 93 Nasal Cannula 3.00 12/06/18 19:49 98.4 Nasal Cannula 3.00 12/06/18 19:00 84 21 99/53 (68) 99 Nasal Cannula 3.00 12/06/18 19:00 84 1/29/19 18:56 96 Nasal Cannula 4.00 12/06/18 18:00 87 31 98/47 (64) 96 Nasal Cannula 3.00 12/06/18 17:00 93 26 100/66 (77) 100 Nasal Cannula 3.00 12/06/18 16:53 94 Nasal Cannula 4.00 I & O 12/07/18 07:00 Intake Total 1480 ml Output Total 1000 ml Balance 480 ml Height & Weight Height: 5'0.00" Weight: 108lbs. 9.0oz. 48.834125mm; 20.6 BMI Method:Stated General Appearance: No Apparent Distress HEENT: Normal ENT Inspection Neck: Supple Respiratory: Decreased Breath Sounds, Rhonci, Wheezing Cardiovascular: Regular Rate, Rhythm, Systolic Murmur Capillary Refill: Less Than 3 Seconds Gastrointestinal: normal bowel sounds, non tender, soft Extremity: Non Tender, No Calf Tenderness, No Pedal Edema Neurologic/Psychiatric: Alert, Oriented x3, Other (groggy from cardiac cath) Skin: Normal Color, Warm/Dry, Ecchymosis (left knee), Other (abrasions bilateral knee) Lymphatic: No Adenopathy Results Lab Laboratory Tests 12/05/18 17:20 12/06/18 03:10 12/07/18 03:50 Assessment/Plan Assessment/Plan Acute NSTEMI COPDAE -BiPAP PRN -Check ABG HTN GREGOR JOSEPH DO Dec 07, 2018 16:53
[2018-12-07 16:59] LABS: ABG BASE EXCESS 1.2 MMOL/L (-2.5-2.5); ABG OXYGEN SATURATION 79 % (94-100); ABG PCO2 55 MMHG (35-45); ABG PO2 49 MMHG (79-93); ABG TCO2 28.4 MMOL/L (21.0-31.0)
--- NOTE | 2018-12-07 17:00 | NUR ---
Dr. King consulted per Dr. Cohn for increased SOB. New orders received.
[2018-12-07 17:02] LABS: ABG PH 7.31 (7.37-7.43); ALLENS TEST POSITIVE; INSPIRED O2 4L; PATIENT TEMP 98.5; VENTILATOR NO
[2018-12-07] MEDS ORDERED: FUROSEMIDE 40 MG/4 ML INJ (LASIX) IVP NR (17:15)
--- NOTE | 2018-12-07 17:19 | Diagnostic Imaging Report ---
INDICATION: Shortness of breath. EXAMINATION: Portable chest at 5:11 p.m. FINDINGS: There are emphysematous changes in the lungs. There is some scarring in the upper medial lungs, bilaterally. There is some infiltrate at the right lung base. Left lower lung is clear. IMPRESSION: Apical scarring, bilaterally. Right lower lobe infiltrate suspicious for pneumonia. This appears slightly worse than image from earlier in the day. Dictated by: Dictated on workstation # [id number]
[2018-12-07] MEDS: methylPREDNISolone 40 MG/ML (Solu-MEDROL) VIAL IV SCH ×2 (17:21→23:49)
[2018-12-07] MEDS: NYSTATIN ORAL SUSP 5 ML UDC PO SCH ×2 (17:30→23:49)
--- NOTE | 2018-12-07 17:30 | NUR ---
RT in room to set up Bipap per Dr. King's order
--- NOTE | 2018-12-07 18:48 | Progress Note (SOAP) ---
Subjective Date Seen by a Provider: Dec 07, 2018 Time Seen by a Provider: 12:35 Subjective/Events-last exam Fwup elevated troponin, COPD with acute exacerbation, UTI, fall with left arm skin tear and knee abrasions. Resting in bed but very short of air with labored breathing. CXR shows possible developing infiltrate and WBC count has gone up. Objective Exam Vital Signs Date Time Temp Pulse Resp B/P (MAP) Pulse Ox O2 Delivery O2 Flow Rate FiO2 12/07/18 18:02 95 98 50.00 12/07/18 18:00 96 27 159/78 (105) 99 Nasal Cannula 4.00 12/07/18 17:00 101 36 178/81 (113) 88 Nasal Cannula 4.00 12/07/18 16:00 Nasal Cannula 4.00 12/07/18 16:00 86 18 126/60 (82) 92 Nasal Cannula 4.00 12/07/18 15:00 80 27 122/50 (74) 95 Nasal Cannula 4.00 12/07/18 14:03 96 Nasal Cannula 3.00 12/07/18 14:00 85 28 142/72 (95) 93 Nasal Cannula 4.00 12/07/18 13:00 86 29 142/66 (91) 92 Nasal Cannula 4.00 12/07/18 13:00 87 12/07/18 12:00 97.6 12/07/18 12:00 84 28 132/75 (94) 94 Nasal Cannula 4.00 12/07/18 12:00 Nasal Cannula 4.00 12/07/18 11:00 84 14 117/51 (73) 96 Nasal Cannula 4.00 12/07/18 10:01 98 Nasal Cannula 3.00 12/07/18 10:00 89 17 117/62 (80) 95 Nasal Cannula 4.00 12/07/18 09:00 105 55 140/81 (100) 86 Nasal Cannula 4.00 12/07/18 08:00 97.8 12/07/18 08:00 95 24 149/70 (96) 95 Nasal Cannula 4.00 12/07/18 08:00 Nasal Cannula 4.00 12/07/18 07:00 85 31 115/52 (73) 94 Nasal Cannula 4.00 12/07/18 07:00 95 12/07/18 06:12 98 Nasal Cannula 3.00 12/07/18 06:00 85 18 119/53 (75) 95 Nasal Cannula 4.00 12/07/18 05:00 87 30 140/67 (91) 95 Nasal Cannula 4.00 12/07/18 04:00 Nasal Cannula 3.00 12/07/18 04:00 87 26 127/77 (94) 95 Nasal Cannula 4.00 12/07/18 03:40 93 26 92 Nasal Cannula 4.00 12/07/18 03:35 98 27 83 Nasal Cannula 4.00 12/07/18 03:32 97.7 12/07/18 03:00 74 28 111/63 (79) 95 Nasal Cannula 3.00 12/07/18 02:15 98 Nasal Cannula 4.00 12/07/18 02:00 74 26 101/45 (63) 97 Nasal Cannula 3.00 12/07/18 01:00 77 12/07/18 01:00 77 20 130/63 (85) 100 Nasal Cannula 3.00 12/07/18 00:00 Nasal Cannula 3.00 12/07/18 00:00 73 27 123/58 (79) 96 Nasal Cannula 3.00 12/06/18 23:00 79 28 120/58 (78) 94 Nasal Cannula 3.00 12/06/18 22:43 82 28 142/54 (83) 93 Nasal Cannula 3.00 12/06/18 22:06 92 Nasal Cannula 4.00 12/06/18 21:00 86 22 107/61 (76) 93 Nasal Cannula 3.00 12/06/18 20:00 Nasal Cannula 3.00 12/06/18 20:00 83 26 95/56 (69) 93 Nasal Cannula 3.00 12/06/18 19:49 98.4 Nasal Cannula 3.00 12/06/18 19:00 84 21 99/53 (68) 99 Nasal Cannula 3.00 12/06/18 19:00 84 12/06/18 18:56 96 Nasal Cannula 4.00 I & O 12/07/18 07:00 Intake Total 1480 ml Output Total 1000 ml Balance 480 ml Capillary Refill : Less Than 3 Seconds General Appearance: Moderate Distress (labored breathing) Neck: Supple Respiratory: Crackles, Decreased Breath Sounds, Respiratory Distress, Rhonci, Wheezing Cardiovascular: Regular Rate, Rhythm, Systolic Murmur, Gallop/S4 Gastrointestinal: normal bowel sounds, non tender, soft Extremity: Non Tender, No Calf Tenderness, No Pedal Edema Neurologic/Psychiatric: Alert, Oriented x3 Skin: Warm/Dry, Ecchymosis (left arm, left knee) Results Lab Laboratory Tests 12/07/18 00:55: Activated Partial Thromboplast Time 36H 12/07/18 03:50: White Blood Count 17.7H, Red Blood Count 3.39L, Hemoglobin 10.5L, Hematocrit 33L , Mean Corpuscular Volume 96, Mean Corpuscular Hemoglobin 31, Mean Corpuscular Hemoglobin Concent 32, Red Cell Distribution Width 13.7, Platelet Count 283, Mean Platelet Volume 9.0, Neutrophils (%) (Auto) 71, Lymphocytes (%) (Auto) 13, Monocytes (%) (Auto) 15H, Eosinophils (%) (Auto) 1, Basophils (%) (Auto) 0, Neutrophils # (Auto) 12.6H, Lymphocytes # (Auto) 2.3, Monocytes # (Auto) 2.7H, Eosinophils # (Auto) 0.1, Basophils # (Auto) 0.0, Neutrophils % (Manual) 76, Lymphocytes % (Manual) 12, Monocytes % (Manual) 10, Band Neutrophils 2, Blood Morphology Comment NORMAL, Sodium Level 136, Potassium Level 4.6, Chloride Level 101, Carbon Dioxide Level 24, Anion Gap 11, Blood Urea Nitrogen 31H, Creatinine 1.70H, Estimat Glomerular Filtration Rate 29, BUN/Creatinine Ratio 18 , Glucose Level 114H, Calcium Level 9.1, Phosphorus Level 3.3, Magnesium Level 2.3, Digoxin Level 0.81 12/07/18 06:44: Activated Partial Thromboplast Time 37H 12/07/18 12:20: Activated Partial Thromboplast Time 33 12/07/18 16:50: Blood Gas Puncture Site RIGHT RADIAL, Blood Gas Patient Temperature 98.5, Arterial Blood pH 7.31*L, Arterial Blood Partial Pressure CO2 55H, Arterial Blood Partial Pressure O2 49L, Arterial Blood HCO3 27, Arterial Blood Total CO2 28.4, Arterial Blood Oxygen Saturation 79L, Arterial Blood Base Excess 1.2, Nahid Test POSITIVE, Blood Gas Ventilator Setting NO, Blood Gas Inspired Oxygen 4L 12/07/18 17:20: Activated Partial Thromboplast Time 34, B-Type Natriuretic Peptide 3689.7H Microbiology 1/28/19 Urine Culture - Final, Complete See Report Assessment/Plan Assessment/Plan Assess & Plan/Chief Complaint 1. Elevated Troponin with normal cardiac cath--likely secondary to acute hypoxia 2. Acute Exacerbation of COPD--add solumedrol, on oxygen and SVNS 3. RLL Pneumonia--start Maxipime 4. Fall with left wrist skin tear and left knee contusion--wounds dressed, will start PT once respiratory status more stable 5. Thrush--start nystatin 6. Acute Renal Insufficiency--hydrate and monitor Cr Clinical Quality Measures Admission Status Admission Dx 1. Acute non STEMI--admit to cardiac in ICU on Brilinta and Heparin with cardiac catheterization by cardiology 2. Hypertension--resume home meds 3. COPD--oxygen, nebulizer treatments 4. UTI--started on Bactrim 5. Chronic Anemia--monitor H/H 6. Left wrist skin tear and abrasions from fall--dressed and will monitor for bleeding with blood thinners DVT/VTE Risk/Contraindication: Risk Factor Score Per Nursin RFS Level Per Nursing on Admit: 3=High MELODY MCGEE DO Dec 07, 2018 18:48
[2018-12-07] MEDS: MEROPENEM 500 MG in NS (IVPB) 100 ML IV SCH (20:50)
[2018-12-07] MEDS: MIRTAZAPINE 15 MG (REMERON) TAB PO SCH (20:52)
[2018-12-07] MEDS: hydrOXYzine (ATARAX) 10 MG TAB PO SCH (20:52)
[2018-12-07] MEDS: ATORVASTATIN 40 MG (LIPITOR) TABLET PO SCH (20:52)
[2018-12-07] MEDS ORDERED: FAMOTIDINE 20 MG (PEPCID) TABLET PO SCH (21:00)
[2018-12-08] VITALS (28 sets, daily range): BP systolic 94–173; BP diastolic 51–89
[2018-12-08] MEDS: RT-ALBUTEROL SULF 2.5 MG/3 ML PRE-MIX VIAL INH SCH ×6 (02:00→21:48)
[2018-12-08 03:50] LABS: BASOPHILS % (AUTO) 0 % (0-10); EOSINOPHILS % (AUTO) 0 % (0-10); HEMATOCRIT 31 % (35-52); HEMOGLOBIN 9.9 G/DL (11.5-16.0); LYMPHOCYTES # (AUTO) 0.8 X 10^3 (1.0-4.0); LYMPHOCYTES % (AUTO) 6 % (12-44); MEAN CORPUSCULAR HEMOGLOBIN 31 PG (25-34); MEAN CORPUSCULAR HGB CONC 33 G/DL (32-36); MEAN CORPUSCULAR VOLUME 94 FL (80-99); MEAN PLATELET VOLUME 9.6 FL (7.4-10.4); MONOCYTES # (AUTO) 0.2 X 10^3 (0.0-1.0); MONOCYTES % (AUTO) 1 % (0-12); NEUTROPHILS # (AUTO) 11.2 X 10^3 (1.8-7.8); NEUTROPHILS % (AUTO) 92 % (42-75); PLATELET COUNT 158 10^3/uL (130-400); WHITE BLOOD COUNT 12.2 10^3/uL (4.3-11.0)
[2018-12-08 04:15] LABS: CREATININE SERUM 1.64 MG/DL (0.60-1.30); MAGNESIUM 2.5 MG/DL (1.8-2.4); POTASSIUM 4.7 MMOL/L (3.6-5.0)
[2018-12-08 04:18] LABS: ABG BASE EXCESS -0.8 MMOL/L (-2.5-2.5); ABG OXYGEN SATURATION 99 % (94-100); ABG PCO2 40 MMHG (35-45); ABG PH 7.39 (7.37-7.43); ABG PO2 120 MMHG (79-93)
[2018-12-08 04:20] LABS: ALLENS TEST POSITIVE; INSPIRED O2 30% BIPAP; PATIENT TEMP 97.2; VENTILATOR YES
[2018-12-08] MEDS: ACETAMINOPHEN 325 MG TABLET PO SCH ×4 (04:23→23:54)
[2018-12-08] MEDS: POTASSIUM CL 10MEQ/50ML IVPB 50 ML IV SCH (04:31)
[2018-12-08] MEDS: KCL 20 MEQ TAB (K-DUR) PO SCH (04:31)
[2018-12-08] MEDS: MAGNESIUM 1 GM/100 ML IVPB 100 ML IV SCH (04:31)
[2018-12-08] MEDS ORDERED: DILTIAZEM 125 MG/25 ML IV (CARDIZEM) IV ONE (04:59)
[2018-12-08] MEDS ORDERED: NS (IVPB) 0 ML ONE (04:59)
[2018-12-08] MEDS: RT-ADVAIR HFA 115/21 MCG PER PUFF IH SCH ×2 (06:13→18:37)
[2018-12-08] MEDS: UMECLIDINIUM BROMIDE (INCRUSE ELLIPTA) 7'S IH SCH (06:23)
[2018-12-08] MEDS: LACTOBACILLUS ACIDOPHILUS (PROBIOTIC) CAPSULE PO SCH ×3 (06:39→17:02)
[2018-12-08] MEDS: NYSTATIN ORAL SUSP 5 ML UDC PO SCH ×3 (06:39→17:02)
[2018-12-08] MEDS: FUROSEMIDE 20 MG (LASIX) TAB PO SCH (06:39)
[2018-12-08] MEDS: methylPREDNISolone 40 MG/ML (Solu-MEDROL) VIAL IV SCH ×3 (06:39→17:02)
--- NOTE | 2018-12-08 07:23 | Pulmonary Progress Note ---
Subjective Time Seen by a Provider: 10:06 Subjective/Events-last exam c/o SOB Sepsis Event Evaluation Height, Weight, BMI Height: 5'0.00" Weight: 125lbs. 9.0oz. 56.663403ug; 20.6 BMI Method:Stated Exam Exam Vital Signs Date Time Temp Pulse Resp B/P (MAP) Pulse Ox O2 Delivery O2 Flow Rate FiO2 12/08/18 06:25 96 Vapotherm 15.00 40 12/08/18 05:54 97.2 82 23 120/57 95 40.00 12/08/18 05:00 82 23 120/57 (78) 95 NIV Bilevel 40.00 12/08/18 04:00 87 21 149/79 (102) 96 NIV Bilevel 40.00 12/08/18 04:00 97.2 12/08/18 04:00 89 26 97 30.00 12/08/18 03:00 77 21 141/64 (89) 96 NIV Bilevel 40.00 12/08/18 02:02 71 21 99 40.00 12/08/18 02:00 71 21 108/51 (70) 97 NIV Bilevel 40.00 12/08/18 01:00 76 12/08/18 01:00 74 21 109/56 (73) 97 NIV Bilevel 40.00 12/08/18 00:00 81 24 97/81 (86) 97 NIV Bilevel 40.00 12/07/18 23:57 96.9 12/07/18 23:00 86 23 137/61 (86) 99 NIV Bilevel 40.00 12/07/18 22:54 85 25 97 40.00 12/07/18 22:00 89 25 133/67 (89) 96 NIV Bilevel 40.00 12/07/18 21:27 NIV Bilevel 40.00 12/07/18 21:00 101 23 168/87 (114) 93 Nasal Cannula 4.00 12/07/18 20:29 94 99 50.00 12/07/18 20:00 93 23 147/78 (101) 99 Nasal Cannula 4.00 12/07/18 19:00 95 12/07/18 19:00 96.8 12/07/18 19:00 95 17 153/85 (107) 99 Nasal Cannula 4.00 12/07/18 18:02 95 98 50.00 12/07/18 18:00 96 27 159/78 (105) 99 Nasal Cannula 4.00 12/07/18 17:37 99 33 98 50.00 12/07/18 17:00 101 36 178/81 (113) 88 Nasal Cannula 4.00 12/07/18 16:00 Nasal Cannula 4.00 12/07/18 16:00 86 18 126/60 (82) 92 Nasal Cannula 4.00 12/07/18 15:00 80 27 122/50 (74) 95 Nasal Cannula 4.00 12/07/18 14:03 96 Nasal Cannula 3.00 12/07/18 14:00 85 28 142/72 (95) 93 Nasal Cannula 4.00 12/07/18 13:00 86 29 142/66 (91) 92 Nasal Cannula 4.00 12/07/18 13:00 87 12/07/18 12:00 97.6 12/07/18 12:00 84 28 132/75 (94) 94 Nasal Cannula 4.00 12/07/18 12:00 Nasal Cannula 4.00 12/07/18 11:00 84 14 117/51 (73) 96 Nasal Cannula 4.00 12/07/18 10:01 98 Nasal Cannula 3.00 12/07/18 10:00 89 17 117/62 (80) 95 Nasal Cannula 4.00 12/07/18 09:00 105 55 140/81 (100) 86 Nasal Cannula 4.00 12/07/18 08:00 97.8 12/07/18 08:00 95 24 149/70 (96) 95 Nasal Cannula 4.00 12/07/18 08:00 Nasal Cannula 4.00 I & O 12/08/18 07:00 Intake Total 500 ml Output Total 2275 ml Balance -1775 ml Height & Weight Height: 5'0.00" Weight: 125lbs. 9.0oz. 56.858559db; 20.6 BMI Method:Stated General Appearance: Moderate Distress (labored breathing) HEENT: Normal ENT Inspection Neck: Supple Respiratory: Crackles, Decreased Breath Sounds, Respiratory Distress, Rhonci, Wheezing Cardiovascular: Regular Rate, Rhythm, Systolic Murmur, Gallop/S4 Capillary Refill: Less Than 3 Seconds Gastrointestinal: normal bowel sounds, non tender, soft Extremity: Non Tender, No Calf Tenderness, No Pedal Edema Neurologic/Psychiatric: Alert, Oriented x3 Skin: Warm/Dry, Ecchymosis (left arm, left knee) Results Lab Laboratory Tests 12/07/18 03:50 12/08/18 03:25 Assessment/Plan Assessment/Plan Acute NSTEMI COPDAE -BiPAP PRN -Check ABG HTN GREGOR JOSEPH DO Dec 08, 2018 07:23
--- NOTE | 2018-12-08 08:02 | Diagnostic Imaging Report ---
INDICATION: COPD, coronary artery disease. COMPARISON: 12/07/2018. FINDINGS: Signal view of the chest demonstrates stable cardiac enlargement. There is persistent but decreasing infiltrate in the right base. Small effusions are seen bilaterally and are stable. There is no pneumothorax. Chronic interstitial changes are seen in the upper lung zones. IMPRESSION: 1. Persistent but decreasing infiltrate in the right base. 2. Stable small effusions. 3. No pneumothorax. Dictated by: Dictated on workstation # [id number]
--- NOTE | 2018-12-08 08:31 | Progress Note-Cardiology ---
Cardiology SOAP Progress Note Subjective: Sitting up in bed this morning. States she is feeling better than yesterday. Continues to feel SOB, but improving. No c/o CP, palpitations. Objective: I&O/Vital Signs 12/08/18 12/08/18 12/08/18 12/08/18 05:54 06:25 07:00 07:00 Temp 97.2 Pulse 82 102 95 Resp 23 30 B/P (MAP) 120/57 136/74 (94) Pulse Ox 95 96 96 O2 Delivery Vapotherm Vapotherm O2 Flow Rate 40.00 15.00 40.00 FiO2 40 12/08/18 12/08/18 12/08/18 12/08/18 08:00 08:00 09:00 09:59 Pulse 106 106 Resp 22 28 B/P (MAP) 138/80 (99) 144/82 (102) Pulse Ox 94 94 94 O2 Delivery Vapotherm Vapotherm Vapotherm Vapotherm O2 Flow Rate 40.00 40.00 15.00 FiO2 40 40 12/08/18 12/08/18 12/08/18 12/08/18 10:00 10:26 11:00 12:00 Pulse 109 106 109 Resp 33 33 B/P (MAP) 173/85 (114) 151/80 (103) Pulse Ox 92 94 95 O2 Delivery Vapotherm Vapotherm Vapotherm O2 Flow Rate 40.00 40.00 FiO2 40 40 12/08/18 12/08/18 12/08/18 12/08/18 12:00 13:00 13:00 13:24 Pulse 104 105 105 Resp 32 27 B/P (MAP) 139/86 (103) 141/85 (103) Pulse Ox 95 95 O2 Delivery Vapotherm NIV Bilevel NIV Bilevel O2 Flow Rate 40.00 30.00 30.00 12/08/18 12/08/18 12/08/18 12/08/18 13:33 14:00 15:00 16:00 Pulse 99 94 98 Resp 23 24 24 B/P (MAP) 128/58 (81) 138/77 (97) Pulse Ox 96 96 92 O2 Delivery NIV Bilevel NIV Bilevel Vapotherm O2 Flow Rate 30.00 30.00 30.00 FiO2 40 12/08/18 00:00 Intake Total 350 ml Output Total 1675 ml Balance -1325 ml Weight (Pounds): 125 Weight (Ounces): 9.0 Weight (Calculated Kilograms): 56.226837 Constitutional: AAO x 3, well-developed, well-nourished Respiratory: chest expansion is symmetric, chest is bilaterally symmetric, rhonchi (scattered), other (prolonged expiratory phase) Cardiovascular: No JVD; tachycardia, S1 and S2, systolic murmur Gastrointestional: soft, round, audible bowel sounds (hypoactive) Extremities: no lower extremity edema bilateral Neurologic/Psychiatric: grossly intact, power is 5/5 both on sides Skin: No rash, No ulcerations; other (multiple abrasions to knees and arms which are under dressings not removed; multiple bruises to arms and legs bilat) Results/Procedures: Labs Laboratory Tests 12/07/18 17:20: Activated Partial Thromboplast Time 34, B-Type Natriuretic Peptide 3689.7H 12/07/18 23:40: Activated Partial Thromboplast Time 32 12/08/18 03:25: B-Type Natriuretic Peptide 2793.3H, White Blood Count 12.2H, Red Blood Count 3.25L, Hemoglobin 9.9L, Hematocrit 31L, Mean Corpuscular Volume 94, Mean Corpuscular Hemoglobin 31, Mean Corpuscular Hemoglobin Concent 33, Red Cell Distribution Width 13.0, Platelet Count 158, Mean Platelet Volume 9.6, Neutrophils (%) (Auto) 92H, Lymphocytes (%) (Auto) 6L, Monocytes (%) (Auto) 1, Eosinophils (%) (Auto) 0, Basophils (%) (Auto) 0, Neutrophils # (Auto) 11.2H, Lymphocytes # (Auto) 0.8L, Monocytes # (Auto) 0.2, Eosinophils # (Auto) 0.0, Basophils # (Auto) 0.0, Sodium Level 134L, Potassium Level 4.7, Chloride Level 100, Carbon Dioxide Level 20L, Anion Gap 14, Blood Urea Nitrogen 37H, Creatinine 1.64H, Estimat Glomerular Filtration Rate 30, BUN/Creatinine Ratio 23 , Glucose Level 127H, Calcium Level 9.0, Phosphorus Level 4.0, Magnesium Level 2.5H 12/08/18 03:45: Blood Gas Puncture Site L RADIAL, Blood Gas Patient Temperature 97.2, Arterial Blood pH 7.39, Arterial Blood Partial Pressure CO2 40, Arterial Blood Partial Pressure O2 120H, Arterial Blood HCO3 24, Arterial Blood Total CO2 25.0, Arterial Blood Oxygen Saturation 99, Arterial Blood Base Excess -0.8, Nahid Test POSITIVE, Blood Gas Ventilator Setting YES, Blood Gas Inspired Oxygen 30% BIPAP Microbiology 12/05/18 Urine Culture - Final, Complete See Report Procedures NAME: HAI HARGROVE [facility] REC#: [id number] PT STATUS: ADM IN : 1940 PHYSICIAN: MELODY PAZ DO ADMIT DATE: 12/05/18/ICU Draft Date of Exam:12/08/18 CHEST 1 VIEW, AP/PA ONLY INDICATION: COPD, coronary artery disease. COMPARISON: 12/07/2018. FINDINGS: Signal view of the chest demonstrates stable cardiac enlargement. There is persistent but decreasing infiltrate in the right base. Small effusions are seen bilaterally and are stable. There is no pneumothorax. Chronic interstitial changes are seen in the upper lung zones. IMPRESSION: 1. Persistent but decreasing infiltrate in the right base. 2. Stable small effusions. 3. No pneumothorax. Dictated on workstation # [id number] Dict: 12/08/18 0755 Trans: 12/08/18 0801 [id number] Interpreted by: MARIA ELENA CLOUD Electronically signed by: A/P: Assessment: Ac on chronic resp failure due to ac exac of COPD and ac giron CHF Ac NSTEMI, but card cath of 12/06/18 shows only minimal CAD and elevated LVEDP. Cath in 2008, following NSTEMI, had also not shown any significant CAD S/P non-syncopal fall on 12-05-18 resulting in multiple abrasions Chronic kidney disease, stage 3, with some contrast nephropathy post card cath of 12/06/18 TIA on Mar 08 2018 for which she was seen in the ED Severe chronic obstructive pulmonary disease due to prior tobaccoism. Tobaccoism that she quit in 2005. H/O cardiomyopathy with an ejection fraction of 30%, both ischemic and non- ischemic per cardiac catheterization from December 2008. Most recent echocardiogram of May 2017 showed LVEF 55-60%. Mild to mod AoR, TR, and MR. Diastolic dysfunction. Palpitations, probably related to known paroxysmal supraventricular tachycardia/ atrial fibrillation, currently controlled. The patient is considered intolerant to warfarin for several reasons, including episodes of marked epistaxis and hemoptysis, even without warfarin therapy. Also, she is prone to falls, given her generalized frail status. She refuses any oral anticoagulants; agrees only to aspirin for stroke prophylaxis Severe anxiety, currently controlled. Osteoporosis and degenerative joint disease Gastroesophageal reflux. H/O intermittent congestive heart failure due to diastolic and systolic dysfunction of the left ventricle, currently controlled. Chronic anemia being followed by Dr. Paz. Hyperlipidemia, well controlled on therapy with simvastatin. H/o left cataract surgery. Mild ascending aortic aneurysm measuring 4.2 cm found incidentally on a CT scan or 07/10/[address] King Pulm nodules being followed by Dr King Carotid u/s of 04/19/18: less than 40% ROSY, 50-60% LICA stenoses Diagnosis of hypothyroidism in April 2018, managed by Dr Paz, but she has been noncompliant with thyroid replacement therapy Plan: * Multiple issues reviewed and discussed * Continue iv fluids in effort to reduce further contrast-related kidney injury * Cr gradually improving * Reduce ARB * Monitor labs closely * May transfer to floor * We discussed her CV issues with her in detail. We have went over the details of cath findings and our plan of treatment Physician Assessment Physician Assessment Worsening of breathing yesterday No cp or palp or syncope Lungs: diminished air entry, prolonged exp, exp wheezes Cor: reg Ext: no c/c/e A&R * As documented in our note above that I updated (italics) and as noted below * Keep in ICU * Continue current regimen * Follow labs * I answered her CV-related questions and explained our treatment plan KEE DAMON Dec 08, 2018 08:31 CASSIE ARANA MD FACP [facility] Dec 08, 2018 17:03
[2018-12-08] MEDS ORDERED: FUROSEMIDE 40 MG/4 ML INJ (LASIX) IVP NR (09:13)
[2018-12-08] MEDS: ARTIFICAL TEARS 0.4 ML UNIT DOSE (REFRESH PLUS) OU SCH ×3 (09:50→19:41)
[2018-12-08] MEDS: LORazepam 1 MG (ATIVAN) TAB PO SCH ×2 (09:50→20:16)
[2018-12-08] MEDS: ASPIRIN E.C. 81 MG (ECOTRIN) TAB PO SCH (09:50)
[2018-12-08] MEDS: DILTIAZEM 120 MG (CARDIZEM CD) CAP PO SCH (09:50)
[2018-12-08] MEDS: DIGOXIN 62.5 MCG (LANOXIN) TAB PO SCH (09:50)
[2018-12-08] MEDS: KCL 10 MEQ TAB (MICRO K) PO SCH (09:53)
[2018-12-08] MEDS: LOSARTAN 25 MG (COZAAR) TAB PO SCH (09:53)
[2018-12-08] MEDS: NS IV 1000 ML 1,000 ML IV SCH (09:54)
[2018-12-08] MEDS: MEROPENEM 500 MG in NS (IVPB) 100 ML IV SCH ×2 (09:54→20:17)
--- NOTE | 2018-12-08 18:22 | Progress Note (SOAP) ---
Subjective Date Seen by a Provider: Dec 08, 2018 Time Seen by a Provider: 12:30 Subjective/Events-last exam Fwup elevated troponin, COPD with acute exacerbation, UTI, fall with left arm skin tear and knee abrasions. Had to be put on BIPAP yesterday and through the night and given IV lasix. Doing much better this AM--down to vapotherm and has diuresed well. Appetite is poor and is very weak. Son at bedside. Objective Exam Vital Signs Date Time Temp Pulse Resp B/P (MAP) Pulse Ox O2 Delivery O2 Flow Rate FiO2 12/08/18 18:00 101 25 164/89 (114) 97 Vapotherm 35.00 15.00 12/08/18 17:00 104 27 153/76 (101) 90 Vapotherm 30.00 12/08/18 16:00 Vapotherm 40 12/08/18 16:00 99.2 103 22 159/79 (105) 91 Vapotherm 30.00 12/08/18 15:00 98 24 138/77 (97) 92 NIV Bilevel 30.00 12/08/18 14:00 94 24 128/58 (81) 96 NIV Bilevel 30.00 12/08/18 13:33 99 23 96 30.00 12/08/18 13:24 NIV Bilevel 30.00 12/08/18 13:00 105 12/08/18 13:00 105 27 141/85 (103) 95 NIV Bilevel 30.00 12/08/18 12:00 104 32 139/86 (103) 95 Vapotherm 40.00 12/08/18 12:00 Vapotherm 40 12/08/18 11:00 109 33 151/80 (103) 95 Vapotherm 40.00 12/08/18 10:26 106 94 40 12/08/18 10:00 109 33 173/85 (114) 92 Vapotherm 40.00 12/08/18 09:59 94 Vapotherm 15.00 40 12/08/18 09:00 106 28 144/82 (102) 94 Vapotherm 40.00 12/08/18 08:00 106 22 138/80 (99) 94 Vapotherm 40.00 12/08/18 08:00 Vapotherm 40 12/08/18 07:00 95 12/08/18 07:00 102 30 136/74 (94) 96 Vapotherm 40.00 12/08/18 06:25 96 Vapotherm 15.00 40 12/08/18 05:54 97.2 82 23 120/57 95 40.00 12/08/18 05:00 82 23 120/57 (78) 95 NIV Bilevel 40.00 12/08/18 04:00 Nasal Cannula 4.00 12/08/18 04:00 87 21 149/79 (102) 96 NIV Bilevel 40.00 12/08/18 04:00 97.2 12/08/18 04:00 89 26 97 30.00 12/08/18 03:00 77 21 141/64 (89) 96 NIV Bilevel 40.00 12/08/18 02:02 71 21 99 40.00 12/08/18 02:00 71 21 108/51 (70) 97 NIV Bilevel 40.00 12/08/18 01:00 76 12/08/18 01:00 74 21 109/56 (73) 97 NIV Bilevel 40.00 12/08/18 00:00 81 24 97/81 (86) 97 NIV Bilevel 40.00 12/08/18 00:00 Nasal Cannula 4.00 12/07/18 23:57 96.9 12/07/18 23:00 86 23 137/61 (86) 99 NIV Bilevel 40.00 12/07/18 22:54 85 25 97 40.00 12/07/18 22:00 89 25 133/67 (89) 96 NIV Bilevel 40.00 12/07/18 21:27 NIV Bilevel 40.00 12/07/18 21:00 101 23 168/87 (114) 93 Nasal Cannula 4.00 12/07/18 20:29 94 99 50.00 12/07/18 20:00 93 23 147/78 (101) 99 Nasal Cannula 4.00 12/07/18 20:00 Nasal Cannula 4.00 12/07/18 19:00 95 12/07/18 19:00 96.8 12/07/18 19:00 95 17 153/85 (107) 99 Nasal Cannula 4.00 I & O 12/08/18 07:00 Intake Total 500 ml Output Total 2275 ml Balance -1775 ml Capillary Refill : Less Than 3 Seconds General Appearance: Moderate Distress (labored breathing) Neck: Supple Respiratory: Decreased Breath Sounds, Respiratory Distress, Rhonci Cardiovascular: Regular Rate, Rhythm, Systolic Murmur, Gallop/S4 Gastrointestinal: normal bowel sounds, non tender, soft Extremity: Non Tender, No Calf Tenderness, No Pedal Edema Neurologic/Psychiatric: Alert, Oriented x3 Skin: Warm/Dry, Ecchymosis Results Lab Laboratory Tests 12/07/18 23:40: Activated Partial Thromboplast Time 32 12/08/18 03:25: White Blood Count 12.2H, Red Blood Count 3.25L, Hemoglobin 9.9L, Hematocrit 31L , Mean Corpuscular Volume 94, Mean Corpuscular Hemoglobin 31, Mean Corpuscular Hemoglobin Concent 33, Red Cell Distribution Width 13.0, Platelet Count 158, Mean Platelet Volume 9.6, Neutrophils (%) (Auto) 92H, Lymphocytes (%) (Auto) 6L , Monocytes (%) (Auto) 1, Eosinophils (%) (Auto) 0, Basophils (%) (Auto) 0, Neutrophils # (Auto) 11.2H, Lymphocytes # (Auto) 0.8L, Monocytes # (Auto) 0.2, Eosinophils # (Auto) 0.0, Basophils # (Auto) 0.0, Sodium Level 134L, Potassium Level 4.7, Chloride Level 100, Carbon Dioxide Level 20L, Anion Gap 14, Blood Urea Nitrogen 37H, Creatinine 1.64H, Estimat Glomerular Filtration Rate 30, BUN/ Creatinine Ratio 23, Glucose Level 127H, Calcium Level 9.0, Phosphorus Level 4.0 , Magnesium Level 2.5H, B-Type Natriuretic Peptide 2793.3H 12/08/18 03:45: Blood Gas Puncture Site L RADIAL, Blood Gas Patient Temperature 97.2, Arterial Blood pH 7.39, Arterial Blood Partial Pressure CO2 40, Arterial Blood Partial Pressure O2 120H, Arterial Blood HCO3 24, Arterial Blood Total CO2 25.0, Arterial Blood Oxygen Saturation 99, Arterial Blood Base Excess -0.8, Nahid Test POSITIVE, Blood Gas Ventilator Setting YES, Blood Gas Inspired Oxygen 30% BIPAP Microbiology 12/05/18 Urine Culture - Final, Complete See Report Assessment/Plan Assessment/Plan Assess & Plan/Chief Complaint 1. Elevated Troponin with normal cardiac cath--likely secondary to acute hypoxia 2. Acute Exacerbation of COPD--continue solumedrol, on oxygen and SVNS 3. RLL Pneumonia--cont Maxipime 4. Fall with left wrist skin tear and left knee contusion--wounds dressed, will start PT once respiratory status more stable 5. Thrush--continue nystatin 6. Acute Renal Insufficiency--hydrate and monitor Cr 7. Acute Respiratory Distress due to COPD and CHF--improved after BIPAP and diuresis 8. Acute on Chronic Diastolic CHF--on IV lasix and diuresing well 9. Acute on Chronic Anemia--monitor H/H Clinical Quality Measures Admission Status Admission Dx 1. Acute non STEMI--admit to cardiac in ICU on Brilinta and Heparin with cardiac catheterization by cardiology 2. Hypertension--resume home meds 3. COPD--oxygen, nebulizer treatments 4. UTI--started on Bactrim 5. Chronic Anemia--monitor H/H 6. Left wrist skin tear and abrasions from fall--dressed and will monitor for bleeding with blood thinners DVT/VTE Risk/Contraindication: Risk Factor Score Per Nursin RFS Level Per Nursing on Admit: 3=High MELODY MCGEE DO Dec 08, 2018 18:22
[2018-12-08] MEDS: hydrOXYzine (ATARAX) 10 MG TAB PO SCH (20:16)
[2018-12-08] MEDS: ATORVASTATIN 40 MG (LIPITOR) TABLET PO SCH (20:17)
[2018-12-08] MEDS: MIRTAZAPINE 15 MG (REMERON) TAB PO SCH (20:17)
[2018-12-08] MEDS: FUROSEMIDE 40 MG/4 ML INJ (LASIX) IVP SCH (20:17)
[2018-12-08] MEDS ORDERED: FAMOTIDINE 20 MG (PEPCID) TABLET PO SCH (21:00)
[2018-12-09] VITALS (17 sets, daily range): BP systolic 116–176; BP diastolic 57–82
[2018-12-09] MEDS: RT-ALBUTEROL SULF 2.5 MG/3 ML PRE-MIX VIAL INH SCH ×6 (01:10→22:33)
[2018-12-09] MEDS: methylPREDNISolone 40 MG/ML (Solu-MEDROL) VIAL IV SCH ×5 (02:07→23:26)
[2018-12-09] MEDS: NYSTATIN ORAL SUSP 5 ML UDC PO SCH ×5 (02:07→23:17)
[2018-12-09 03:53] LABS: BASOPHILS % (AUTO) 0 % (0-10); EOSINOPHILS % (AUTO) 0 % (0-10); HEMATOCRIT 26 % (35-52); HEMOGLOBIN 8.5 G/DL (11.5-16.0); LYMPHOCYTES # (AUTO) 0.6 X 10^3 (1.0-4.0); LYMPHOCYTES % (AUTO) 4 % (12-44); MEAN CORPUSCULAR HEMOGLOBIN 31 PG (25-34); MEAN CORPUSCULAR HGB CONC 33 G/DL (32-36); MEAN CORPUSCULAR VOLUME 94 FL (80-99); MEAN PLATELET VOLUME 9.1 FL (7.4-10.4); MONOCYTES # (AUTO) 0.5 X 10^3 (0.0-1.0); MONOCYTES % (AUTO) 4 % (0-12); NEUTROPHILS # (AUTO) 11.9 X 10^3 (1.8-7.8); NEUTROPHILS % (AUTO) 92 % (42-75); PLATELET COUNT 264 10^3/uL (130-400); RED CELL DISTRIBUTION WIDTH 13.3 % (10.0-14.5); WHITE BLOOD COUNT 12.9 10^3/uL (4.3-11.0)
[2018-12-09 03:53] LABS: ABG BASE EXCESS 2.8 MMOL/L (-2.5-2.5); ABG OXYGEN SATURATION 81 % (94-100); ABG PCO2 43 MMHG (35-45); ABG PH 7.41 (7.37-7.43); ABG PO2 45 MMHG (79-93); ABG TCO2 28.6 MMOL/L (21.0-31.0)
[2018-12-09 03:55] LABS: ALLENS TEST YES-POS; VENTILATOR NO
[2018-12-09 03:56] LABS: INSPIRED O2 30% BIPAP
[2018-12-09 04:10] LABS: CALCIUM 8.7 MG/DL (8.5-10.1); CREATININE SERUM 1.59 MG/DL (0.60-1.30); MAGNESIUM 1.9 MG/DL (1.8-2.4); PHOSPHORUS 2.9 MG/DL (2.3-4.7); POTASSIUM 3.4 MMOL/L (3.6-5.0)
--- NOTE | 2018-12-09 06:41 | Pulmonary Progress Note ---
Subjective Time Seen by a Provider: 06:49 Subjective/Events-last exam Complains of right flank pain, neck pain. Sepsis Event Evaluation Height, Weight, BMI Height: 5'0.00" Weight: 125lbs. 9.0oz. 56.287420gu; 20.6 BMI Method:Stated Exam Exam Vital Signs Date Time Temp Pulse Resp B/P (MAP) Pulse Ox O2 Delivery O2 Flow Rate FiO2 12/09/18 06:05 96 12 150/65 (93) 97 Vapotherm 35.00 15.00 12/09/18 05:00 93 21 147/75 (99) 96 Vapotherm 35.00 15.00 12/09/18 04:00 87 23 141/69 (93) 100 Vapotherm 35.00 15.00 12/09/18 03:56 87 20 98 30.00 12/09/18 03:00 95 20 176/82 (113) 97 Vapotherm 35.00 15.00 12/09/18 02:00 84 21 116/57 (76) 97 Vapotherm 35.00 15.00 12/09/18 01:10 86 21 98 30.00 12/09/18 01:00 87 12/09/18 01:00 86 28 133/65 (87) 97 Vapotherm 35.00 15.00 12/09/18 00:00 82 20 123/58 (79) 97 Vapotherm 35.00 15.00 12/08/18 23:53 Vapotherm 40 12/08/18 23:36 97.1 12/08/18 23:24 84 23 98 30.00 12/08/18 23:00 84 24 94/53 (67) 97 Vapotherm 35.00 15.00 12/08/18 22:00 96 25 136/76 (96) 98 Vapotherm 35.00 15.00 12/08/18 21:49 102 30 96 30.00 12/08/18 21:00 97 23 140/69 (92) 95 Vapotherm 35.00 15.00 12/08/18 20:00 Vapotherm 40 12/08/18 20:00 106 23 141/70 (93) 93 Vapotherm 35.00 15.00 12/08/18 19:51 98.3 12/08/18 19:00 106 23 148/78 (101) 96 Vapotherm 35.00 15.00 12/08/18 19:00 106 12/08/18 18:45 Vapotherm 15.00 35 12/08/18 18:37 94 Vapotherm 15.00 35 12/08/18 18:00 101 25 164/89 (114) 97 Vapotherm 35.00 15.00 12/08/18 17:00 104 27 153/76 (101) 90 Vapotherm 30.00 12/08/18 16:00 Vapotherm 40 12/08/18 16:00 99.2 103 22 159/79 (105) 91 Vapotherm 30.00 12/08/18 15:00 98 24 138/77 (97) 92 NIV Bilevel 30.00 12/08/18 14:00 94 24 128/58 (81) 96 NIV Bilevel 30.00 12/08/18 13:33 99 23 96 30.00 12/08/18 13:24 NIV Bilevel 30.00 12/08/18 13:00 105 12/08/18 13:00 105 27 141/85 (103) 95 NIV Bilevel 30.00 12/08/18 12:00 104 32 139/86 (103) 95 Vapotherm 40.00 12/08/18 12:00 Vapotherm 40 12/08/18 11:00 109 33 151/80 (103) 95 Vapotherm 40.00 12/08/18 10:26 106 94 40 12/08/18 10:00 109 33 173/85 (114) 92 Vapotherm 40.00 12/08/18 09:59 94 Vapotherm 15.00 40 12/08/18 09:00 106 28 144/82 (102) 94 Vapotherm 40.00 12/08/18 08:00 106 22 138/80 (99) 94 Vapotherm 40.00 12/08/18 08:00 Vapotherm 40 12/08/18 07:00 95 12/08/18 07:00 102 30 136/74 (94) 96 Vapotherm 40.00 I & O 12/09/18 07:00 Intake Total 675 ml Output Total 1975 ml Balance -1300 ml Height & Weight Height: 5'0.00" Weight: 125lbs. 9.0oz. 56.101981jz; 20.6 BMI Method:Stated General Appearance: Anxious, Mild Distress HEENT: Normal ENT Inspection Neck: Supple Respiratory: Decreased Breath Sounds, Respiratory Distress, Rhonci Cardiovascular: Regular Rate, Rhythm, Systolic Murmur, Gallop/S4 Capillary Refill: Less Than 3 Seconds Gastrointestinal: normal bowel sounds, non tender, soft Extremity: Non Tender, No Calf Tenderness, No Pedal Edema Neurologic/Psychiatric: Alert, Oriented x3 Skin: Warm/Dry, Ecchymosis Results Lab Laboratory Tests 12/08/18 03:25 12/09/18 03:35 Assessment/Plan Assessment/Plan Acute NSTEMI COPDAE -Vapotherm/BiPAP PRN -titrate oxygen- pt is currently on Vapotherm high flow -ABG is improved today -PT is getting lasix 40 BID and IVF at 50cc/hr -D/C IVF ARF -monitor Anxiety HTN GREGOR JOSEPH DO Dec 09, 2018 06:41
[2018-12-09] MEDS: UMECLIDINIUM BROMIDE (INCRUSE ELLIPTA) 7'S IH SCH (06:47)
[2018-12-09] MEDS: RT-ADVAIR HFA 115/21 MCG PER PUFF IH SCH ×2 (06:47→18:55)
[2018-12-09] MEDS: LACTOBACILLUS ACIDOPHILUS (PROBIOTIC) CAPSULE PO SCH ×3 (06:53→15:49)
[2018-12-09] MEDS: POTASSIUM CL 10MEQ/50ML IVPB 50 ML IV SCH ×2 (06:54→08:33)
[2018-12-09] MEDS: NS IV 1000 ML 1,000 ML IV SCH (06:56)
[2018-12-09] MEDS: FUROSEMIDE 40 MG/4 ML INJ (LASIX) IVP SCH ×2 (06:58→15:49)
[2018-12-09] MEDS: ACETAMINOPHEN 325 MG TABLET PO SCH ×4 (06:59→23:17)
--- NOTE | 2018-12-09 08:16 | Diagnostic Imaging Report ---
INDICATION: Myocardial infarction. TECHNIQUE: Single view chest 300 a.m.. CORRELATION STUDY: 12/08/2018 FINDINGS: Heart size baseline. Vascular stable. Calcification of the aortic arch. Chronic change about the lung parenchyma. Likely areas of scarring about the lung apices. More superimposed infiltrate of the right lung base does persist, appears slightly more consolidated. Probable small effusions. IMPRESSION: 1. Slightly more consolidated infiltrate of the right lung base superimposed on chronic lung disease. Trace effusions. Dictated by: Dictated on workstation # [id number]
[2018-12-09] MEDS: ARTIFICAL TEARS 0.4 ML UNIT DOSE (REFRESH PLUS) OU SCH ×3 (09:47→20:30)
[2018-12-09] MEDS: DIGOXIN 62.5 MCG (LANOXIN) TAB PO SCH (09:47)
[2018-12-09] MEDS: DILTIAZEM 120 MG (CARDIZEM CD) CAP PO SCH (09:47)
[2018-12-09] MEDS: MEROPENEM 500 MG in NS (IVPB) 100 ML IV SCH ×2 (09:47→20:30)
[2018-12-09] MEDS: LOSARTAN 25 MG (COZAAR) TAB PO SCH (09:47)
[2018-12-09] MEDS: LORazepam 1 MG (ATIVAN) TAB PO SCH ×2 (09:47→20:31)
[2018-12-09] MEDS: ASPIRIN E.C. 81 MG (ECOTRIN) TAB PO SCH (09:47)
[2018-12-09] MEDS: KCL 10 MEQ TAB (MICRO K) PO SCH (09:51)
[2018-12-09] MEDS ORDERED: SENNA W/DOCUSATE (SENOKOT S) TABLET PO NR (10:15)
[2018-12-09] MEDS ORDERED: FAMOTIDINE 20 MG (PEPCID) TABLET PO NR (10:15)
--- NOTE | 2018-12-09 11:00 | NUR ---
Patient transferred to 421-1 per bed accompanied by staff. Patient and family notified and understand transfer. Personal belongings with patient. Report received from [facility]. This RN to assume patient care.
--- NOTE | 2018-12-09 11:28 | Physical Therapy Evaluation ---
PT Evaluation-General Medical Diagnosis Admission Date Dec 05, 2018 at 19:14 Medical Diagnosis: NSTEMI, Fall, Skin Tear Onset Date: Dec 05, 2018 Therapy Diagnosis Therapy Diagnosis: decreased mobility, decreased activity tolerance Height/Weight Height (Feet): 5 Height (Inches): 0.00 Weight (Pounds): 120 Weight (Ounces): 9.0 Precautions Precautions/Isolations: Fall Prevention, Standard Precautions, Pressure Ulcer Weight Bear Status Right Lower Extremity: Right Full Weight Bearing Left Lower Extremity: Left Full Weight Bearing Referral Physician: Ruthie Paz DO Reason for Referral: Evaluation/Treatment Medical History Pertinent Medical History: Arthritis, COPD, GERD, HTN, ID Current History Pt to ER by EMS due to fall and bleeding on arm that would not stop. Pt then reported chest tightness in ER that came on after the fall. Reviewed History: Yes Social History Home: Single Level Current Living Status: Alone Entry Into Home: Stairs With Railing PT Steps Into Home: 4 Prior/Core FIM Prior Level of Function Therapy Code Descriptions/Definitions Functional [place] Measure: 0=Not Assessed/NA 4=Minimal Assistance 1=Total Assistance 5=Supervision or Setup 2=Maximal Assistance 6=Modified [place] 3=Moderate Assistance 7=Complete [place] Therapy Quality Codes: 6 Independent with activity with or without an assistive device 5 Patient requires set up or clean up by helper. Patient completes activity by themselves 4 Supervision or touching assist (CGA). [place] provide cues , steadying assist 3 The helper provides less than half the effort to complete the activity 2 The helper provides more than half the effort to complete the activity 1 Dependent. The helper does all the effort to complete an activity 7 Patient refused to complete or attempt activity 9 The patient did not perform the activity before the current illness or injury 88 Not attempted due to Medical conditions or safety concerns Functional Abilities and Goals: Independent: Patient completed the activities by him/herself, with or without an assistive device, with no assistance from a helper. Needed Some Help: Patient needed partial assistance from another person to complete activities. Dependent: A helper completed the activities for the patient. Unknown: Not Applicable: Bed Mobility: 7 Transfers (B,C,W/C) (FIM): 7 Gait: 7 Stairs: 7 Indoor Mobility (Ambulation): Independent Stairs: Independent Prior Devices Use: None PT Evaluation-Current Subjective Pt had just been brought to room 421 from [facility]. Pt agreed to PT and reported that she wouldn't be able to do much. Pain Numeric Pain Scale: 0-No Pain Location: No Pain Reported Pt/Family Goals Pt to return home indep. Objective Patient Orientation: Person, Place, Situation, Normal For Age Attachments: Oxygen (8L), Celaya Catheter ROM/Strength ROM Lower Extremities WNL Strength Lower Extremities Bilateral gross motor (4+/5) Integumentary/Posture Bowel Incontinence: No Bladder Incontinence: Celaya Cath Neuromuscular (Tone, Coordination, Reflexes) grossly intact Sensory Vision: Wears Glasses Sensation Right Lower Extremit: Intact Sensation Left Lower Extremity: Intact Transfers Therapy Code Descriptions/Definitions Functional [place] Measure: 0=Not Assessed/NA 4=Minimal Assistance 1=Total Assistance 5=Supervision or Setup 2=Maximal Assistance 6=Modified [place] 3=Moderate Assistance 7=Complete [place] Transfers (B, C, W/C) (FIM): 4 Scootin Supine to/from Sit: 5 Sit to/from Stand: 4 Gait Mode of Locomotion: Walk Anticipated Mode of Locomotion: Walk Gait (FIM): 1 Distance (FIM): 1=up to 49 ft Distance: 10' Gait Level of Assist: 4 Gait Persons Needed: 1 Gait Assistive Device: FWW Balance Sitting Static: Good Sitting Dynamic: Good Standing Static: Good Standing Dynamic: Good Assessment/Needs Pt celaya cath was leaking out of a tube, nurse statistical assistant notified. Pt was able to perform bed mobility with SBA. Pt was able to perform sit<>stand transfer with min A. Pt amb from bed to recliner 10' with FWW and min A on 8L O2. Pt is impulsive and did not use good transfer safety of hand placement. Pt is in recliner with all needs met and stated "it feels good to get out of bed." PT will increase activity as pt is able to tolerate. Rehab Potential: Good Post Rehab Potential-Barriers: Co-morbidities PT Short Term Goals Short Term Goals Time Frame: Dec 16, 2018 Transfers (B,C,W/C) (FIM): 6 Gait (FIM): 2 Distance (FIM): 2=535-72 ft Gait Distance Comment: 100' Gait Level of Assist: 5 Gait Assistive Device: FWW PT Plan Problem List Problem List: Activity Tolerance, Functional Strength, Safety, Balance, Gait, Transfer, Bed Mobility, ROM Treatment/Plan Treatment Plan: Continue Plan of Care Treatment Plan: Bed Mobility, Education, Functional Activity [place], Functional Strength, Gait, Safety, Therapeutic Exercise, Transfers Treatment Duration: Dec 16, 2018 Frequency: 6 times per week Estimated Hrs Per Day: .25 hour per day Patient and/or Family Agrees t: Yes Safety Risks/Education Patient Education: Gait Training, Transfer Techniques, Correct Positioning, Safety Issues Teaching Recipient: Patient Teaching Methods: Demonstration, Discussion Discharge Recommendations Therapy D/C Recommendations: Home w/ Family Support, Home Independently Equpiment Recommendations-D/C: Front Wheeled Walker Time/GCodes Time In: 1050 Time Out: 1105 Total Billed Treatment Time: 15 Total Billed Treatment 1 visit EVlowC 15 min JANI WASSERMAN PT Dec 09, 2018 11:28
--- NOTE | 2018-12-09 12:28 | Progress Note (SOAP) ---
Subjective Date Seen by a Provider: Dec 09, 2018 Time Seen by a Provider: 10:00 Subjective/Events-last exam Fwup elevated troponin, COPD with acute exacerbation, UTI, fall with left arm skin tear and knee abrasions. Did require BIPAP overnight. Back on Vapotherm this morning and feels like breathing is a little bit better. Objective Exam Vital Signs Date Time Temp Pulse Resp B/P (MAP) Pulse Ox O2 Delivery O2 Flow Rate FiO2 12/09/18 10:30 100 Vapotherm 15.00 35 12/09/18 10:00 103 23 147/75 (99) 97 Vapotherm 35.00 15.00 12/09/18 09:00 100 23 131/71 (91) 98 Vapotherm 35.00 15.00 12/09/18 08:00 106 25 153/79 (103) 97 Vapotherm 35.00 15.00 12/09/18 08:00 Vapotherm 15.00 35 12/09/18 07:15 105 12/09/18 07:00 103 20 157/80 (105) 95 Vapotherm 35.00 15.00 12/09/18 06:45 99 Vapotherm 15.00 35 12/09/18 06:05 96 12 150/65 (93) 97 Vapotherm 35.00 15.00 12/09/18 05:00 93 21 147/75 (99) 96 Vapotherm 35.00 15.00 12/09/18 04:00 Vapotherm 40 12/09/18 04:00 97.0 12/09/18 04:00 87 23 141/69 (93) 100 Vapotherm 35.00 15.00 12/09/18 03:56 87 20 98 30.00 12/09/18 03:00 95 20 176/82 (113) 97 Vapotherm 35.00 15.00 12/09/18 02:00 84 21 116/57 (76) 97 Vapotherm 35.00 15.00 12/09/18 01:10 86 21 98 30.00 12/09/18 01:00 87 12/09/18 01:00 86 28 133/65 (87) 97 Vapotherm 35.00 15.00 12/09/18 00:00 82 20 123/58 (79) 97 Vapotherm 35.00 15.00 12/08/18 23:53 Vapotherm 40 12/08/18 23:36 97.1 12/08/18 23:24 84 23 98 30.00 12/08/18 23:00 84 24 94/53 (67) 97 Vapotherm 35.00 15.00 12/08/18 22:00 96 25 136/76 (96) 98 Vapotherm 35.00 15.00 12/08/18 21:49 102 30 96 30.00 12/08/18 21:00 97 23 140/69 (92) 95 Vapotherm 35.00 15.00 12/08/18 20:00 Vapotherm 40 12/08/18 20:00 106 23 141/70 (93) 93 Vapotherm 35.00 15.00 12/08/18 19:51 98.3 12/08/18 19:00 106 23 148/78 (101) 96 Vapotherm 35.00 15.00 12/08/18 19:00 106 12/08/18 18:45 Vapotherm 15.00 35 12/08/18 18:37 94 Vapotherm 15.00 35 12/08/18 18:00 101 25 164/89 (114) 97 Vapotherm 35.00 15.00 12/08/18 17:00 104 27 153/76 (101) 90 Vapotherm 30.00 12/08/18 16:00 Vapotherm 40 12/08/18 16:00 99.2 103 22 159/79 (105) 91 Vapotherm 30.00 12/08/18 15:00 98 24 138/77 (97) 92 NIV Bilevel 30.00 12/08/18 14:00 94 24 128/58 (81) 96 NIV Bilevel 30.00 12/08/18 13:33 99 23 96 30.00 12/08/18 13:24 NIV Bilevel 30.00 12/08/18 13:00 105 12/08/18 13:00 105 27 141/85 (103) 95 NIV Bilevel 30.00 I & O 12/09/18 07:00 Intake Total 1925 ml Output Total 2700 ml Balance -775 ml Capillary Refill : Less Than 3 Seconds General Appearance: Mild Distress (labored breathing) Neck: Supple Respiratory: Decreased Breath Sounds, Respiratory Distress (mild) Cardiovascular: Regular Rate, Rhythm, Systolic Murmur Gastrointestinal: normal bowel sounds, non tender, soft Extremity: Non Tender, No Calf Tenderness, Pedal Edema (feet) Neurologic/Psychiatric: Alert, Oriented x3 Skin: Ecchymosis Results Lab Laboratory Tests 12/09/18 03:35: White Blood Count 12.9H, Red Blood Count 2.72L, Hemoglobin 8.5L, Hematocrit 26L , Mean Corpuscular Volume 94, Mean Corpuscular Hemoglobin 31, Mean Corpuscular Hemoglobin Concent 33, Red Cell Distribution Width 13.3, Platelet Count 264, Mean Platelet Volume 9.1, Neutrophils (%) (Auto) 92H, Lymphocytes (%) (Auto) 4L , Monocytes (%) (Auto) 4, Eosinophils (%) (Auto) 0, Basophils (%) (Auto) 0, Neutrophils # (Auto) 11.9H, Lymphocytes # (Auto) 0.6L, Monocytes # (Auto) 0.5, Eosinophils # (Auto) 0.0, Basophils # (Auto) 0.0, Sodium Level 138, Potassium Level 3.4L, Chloride Level 102, Carbon Dioxide Level 25, Anion Gap 11, Blood Urea Nitrogen 37H, Creatinine 1.59H, Estimat Glomerular Filtration Rate 31, BUN/ Creatinine Ratio 23, Glucose Level 146H, Calcium Level 8.7, Phosphorus Level 2.9 , Magnesium Level 1.9, B-Type Natriuretic Peptide 3337.7H 12/09/18 03:45: Blood Gas Puncture Site RT RADIAL, Blood Gas Patient Temperature 97.0, Arterial Blood pH 7.41, Arterial Blood Partial Pressure CO2 43, Arterial Blood Partial Pressure O2 45L, Arterial Blood HCO3 27, Arterial Blood Total CO2 28.6, Arterial Blood Oxygen Saturation 81L, Arterial Blood Base Excess 2.8H, Nahid Test YES-POS, Blood Gas Ventilator Setting NO, Blood Gas Inspired Oxygen 30% BIPAP 12/09/18 06:49: Activated Partial Thromboplast Time 29 Microbiology 12/05/18 Urine Culture - Final, Complete See Report Assessment/Plan Assessment/Plan Assess & Plan/Chief Complaint 1. Elevated Troponin with normal cardiac cath--likely secondary to acute hypoxia 2. Acute Exacerbation of COPD--continue solumedrol, on oxygen and SVNS 3. RLL Pneumonia--cont Maxipime 4. Fall with left wrist skin tear and left knee contusion--wounds dressed, will start PT once respiratory status more stable 5. Thrush--continue nystatin 6. Acute Renal Insufficiency--hydrate and monitor Cr 7. Acute Respiratory Distress due to COPD and CHF--improved after BIPAP and diuresis, on Vapotherm during day and BiPAP overnight 8. Acute on Chronic Diastolic CHF--on IV lasix and diuresing well 9. Acute on Chronic Anemia--Hgb dropped to 8.5 toady so will monitor H/H 10. Start PT/OT and will need SWING bed Clinical Quality Measures Admission Status Admission Dx 1. Acute non STEMI--admit to cardiac in ICU on Brilinta and Heparin with cardiac catheterization by cardiology 2. Hypertension--resume home meds 3. COPD--oxygen, nebulizer treatments 4. UTI--started on Bactrim 5. Chronic Anemia--monitor H/H 6. Left wrist skin tear and abrasions from fall--dressed and will monitor for bleeding with blood thinners DVT/VTE Risk/Contraindication: Risk Factor Score Per Nursin RFS Level Per Nursing on Admit: 3=High MELODY MCGEE DO Dec 09, 2018 12:28
--- NOTE | 2018-12-09 13:17 | Occupational Therapy Eval ---
OT Evaluation-General/PLF Medical Diagnosis Admission Date Dec 05, 2018 at 19:14 Medical Diagnosis: NSTEMI, Fall, Skin Tear Onset Date: Dec 05, 2018 Therapy Diagnosis Therapy Diagnosis: weakness Height/Weight Height (Feet): 5 Height (Inches): 0.00 Weight (Pounds): 120 Weight (Ounces): 9.0 Precautions Precautions/Isolations: Fall Prevention, Standard Precautions, Pressure Ulcer Safety Interventions: None Referral Physician: Ruthie Paz DO Referral Reason: Activity Tolerance, Self Care, Evaluation/Treatment, Strengthening/ROM Medical History Pertinent Medical History: Arthritis, COPD, GERD, HTN, [place] Current History 78 yrs old w/f , ,was in a parking lot of a local store . was getting into the car when the wind caught her car door striking her & causing her to fall on the ground, sustaining Left hand injury ( wrist ) Reviewed History: No Social History Home: Single Level Current Living Status: Alone Entry Into Home: Stairs With Railing Steps Into Home: 4 ADL-Prior Level of Function Therapy Code Descriptions/Definitions Functional Hendry Measure: 0=Not Assessed/NA 4=Minimal Assistance 1=Total Assistance 5=Supervision or Setup 2=Maximal Assistance 6=Modified Hendry 3=Moderate Assistance 7=Complete [place] Therapy Quality Codes: 6 Independent with activity with or without an assistive device 5 Patient requires set up or clean up by helper. Patient completes activity by themselves 4 Supervision or touching assist (CGA). Dupo provide cues , steadying assist 3 The helper provides less than half the effort to complete the activity 2 The helper provides more than half the effort to complete the activity 1 Dependent. The helper does all the effort to complete an activity 7 Patient refused to complete or attempt activity 9 The patient did not perform the activity before the current illness or injury 88 Not attempted due to Medical conditions or safety concerns Functional Abilities and Goals: Independent: Patient completed the activities by him/herself, with or without an assistive device, with no assistance from a helper. Needed Some Help: Patient needed partial assistance from another person to complete activities. Dependent: A helper completed the activities for the patient. Unknown: Not Applicable: ADL PLOF Comments Pt was living alone in a single loevel house & was Independent in all ADLs, & ambulation & driving & IADLs. Self Care: Independent Functional Cognition: Independent Drive Self: Yes OT Current Status Subjective Pt in bed ,resing. Pt states that , " I am very SOB & tired. ". Pt agree for OT Pain Numeric Pain Scale: 5-Moderate Pain Location: Left Location Body Site: Wrist Pain Description: Ache, Sharp Mental Status/Objective Patient Orientation: Person, Place, Time Attachments: Kelley Catheter, Oxygen Current Glasses/Contacts: Yes Hearing Aids: No Dentures/Partials: Yes Hand Dominance: Right Upper Extremity ROM INTACT Upper Extremity Coordination INTACT Upper Extremity Sensation INTACT Upper Extremity Strength MS in BANNER -02/10 grossly graded. ADL-Treatment ADL-Current Pt needs Min-SBA in supine to sit in bed, sit to stand transfers min A., Pt needs min A in UB & mod A in LB dressing garments as pt fatigue & SOB .. MS in BANNER -02/10 grossly graded. poor endurance. Pt on 8 Litre O2 Therapy Code Descriptions/Definitions Functional Hendry Measure: 0=Not Assessed/NA 4=Minimal Assistance 1=Total Assistance 5=Supervision or Setup 2=Maximal Assistance 6=Modified [place]ry 3=Moderate Assistance 7=Complete [place]ry Therapy Quality Codes: 6 Independent with activity with or without an assistive device 5 Patient requires set up or clean up by helper. Patient completes activity by themselves 4 Supervision or touching assist (CGA). Dupo provide cues , steadying assist 3 The helper provides less than half the effort to complete the activity 2 The helper provides more than half the effort to complete the activity 1 Dependent. The helper does all the effort to complete an activity 7 Patient refused to complete or attempt activity 9 The patient did not perform the activity before the current illness or injury 88 Not attempted due to Medical conditions or safety concerns Eating (FIM): 7 Grooming (FIM): 4 Bathing (FIM): 0 Upper Body Dressing (FIM): 4 Lower Body Dressing (FIM): 3 Transfers (B, C, W/C) (FIM): 4 Education OT Patient Education: Correct positioning, Energy conservation, Safety issues Teaching Recipient: Patient Teaching Methods: Demonstration, Discussion Response to Teaching: Verbalize Understanding, Return Demonstration OT Short Term Goals Short Term Goals Time Frame: Dec 23, 2018 Eating(FIM): 7 Grooming(FIM): 7 Upper Body Dressing(FIM): 6 Lower Body Dressing(FIM): 4 Toileting(FIM): 6 Transfers (B,C,W/C) (FIM): 6 Toilet/Commode Transfer(FIM): 6 Shower Transfer(FIM): 6 Additional Short Term Goals: 1-Demonstrate ADL Tasks, 2-Verbalize Understanding , 3-ImproveStrength/Alma 1=Demonstrate adherence to instructed precautions during ADL tasks. 2=Patient will verbalize/demonstrate understanding of assistive devices/ modifications for ADL. 3=Patient will improve strength/tolerance for activity to enable patient to perform ADL's. OT Shelter Case Manager Goals Shelter Case Manager Goals Time Frame: Jan 06, 2019 Eating (FIM): 7 Grooming(FIM): 7 Bathing(FIM): 7 Bathing Location: L Arm, R Arm, L Upper Leg, R Upper Leg, L Lower Leg ( including foot), R Lower Leg (including foot), Chest, Abdomen, Buttocks, Perineal Area Upper Body Dressing(FIM): 7 Lower Body Dressing(FIM): 7 Toileting(FIM): 7 Transfers (B,C,W/C) (FIM): 7 Toilet/Commode Transfer(FIM): 7 Shower Transfer(FIM): 7 Additional Goals: 1-Demonstrate ADL Tasks, 2-Verbalize Understanding, 3- ImproveStrength/Alma 1=Demonstrate adherence to instructed precautions during ADL tasks. 2=Patient will verbalize/demonstrate understanding of assistive devices/ modifications for ADL. 3=Patient will improve strength/tolerance for activity to enable patient to perform ADL's. OT Education/Plan Problem List/Assessment Assessment: Decreased Activ Tolerance, Decreased Safety Aware, Decreased UE Strength, Dependent Transfers, Impaired Bed Mobility, Impaired Funct Balance, Impaired I ADL's, Impaired Self-Care Skills Discharge Recommendations Plan/Recommendations: Continue POC Therapy D/C Recommendations: Home Independently, Occupational Therapy Home Care Equpiment Recommendations-D/C: Bath Chair, Extended Shower Sprayer, Jewelry Setter Barriers to Progress O2 dependent, Fatigue soon Patient/Family Goals To return home Independently with AD. Treatment Plan/Plan of Care Treatment,Training & Education: Yes Patient would benefit from OT for education, treatment and training to promote independence in ADL's, mobility, safety and/or upper extremity function for ADL' s. Plan of Care: ADL Retraining, Caregiver Training, Functional Mobility, UE Funct Exercise/Act, UE Neuromus Re-Ed/Coord Treatment Duration: Jan 06, 2019 Frequency: 5 times per week Estimated Hrs Per Day: .25 hour per day Agreement: Yes Rehab Potential: Good Time/GCodes Start Time: 12:35 Stop Time: 13:10 Total Time Billed (hr/min): 35 Billed Treatment Time 1, ADLs 20 min , Ex 15 min Total 35 Min. MADELEINE BENNETT OT Dec 09, 2018 13:17
--- NOTE | 2018-12-09 14:28 | Progress Note-Cardiology ---
Cardiology SOAP Progress Note Subjective: Still short of breath No cp or palp or syncope Objective: I&O/Vital Signs 12/09/18 12/09/18 12/09/18 12/09/18 03:00 03:56 04:00 04:00 Temp 97.0 Pulse 95 87 87 Resp 20 20 23 B/P (MAP) 176/82 (113) 141/69 (93) Pulse Ox 97 98 100 O2 Delivery Vapotherm Vapotherm O2 Flow Rate 35.00 30.00 35.00 15.00 15.00 12/09/18 12/09/18 12/09/18 12/09/18 04:00 05:00 06:05 06:45 Pulse 93 96 Resp 21 12 B/P (MAP) 147/75 (99) 150/65 (93) Pulse Ox 96 97 99 O2 Delivery Vapotherm Vapotherm Vapotherm Vapotherm O2 Flow Rate 35.00 35.00 15.00 15.00 15.00 FiO2 40 35 12/09/18 12/09/18 12/09/18 12/09/18 07:00 07:15 08:00 08:00 Pulse 103 105 106 Resp 20 25 B/P (MAP) 157/80 (105) 153/79 (103) Pulse Ox 95 97 O2 Delivery Vapotherm Vapotherm Vapotherm O2 Flow Rate 35.00 15.00 35.00 15.00 15.00 FiO2 35 12/09/18 12/09/18 12/09/18 09:00 10:00 10:30 Pulse 100 103 Resp 23 23 B/P (MAP) 131/71 (91) 147/75 (99) Pulse Ox 98 97 100 O2 Delivery Vapotherm Vapotherm Vapotherm O2 Flow Rate 35.00 35.00 15.00 15.00 15.00 FiO2 35 12/09/18 00:00 Intake Total 500 ml Output Total 1825 ml Balance -1325 ml Weight (Pounds): 120 Weight (Ounces): 9.0 Weight (Calculated Kilograms): [id number] Constitutional: AAO x 3, well-developed, well-nourished Respiratory: chest expansion is symmetric, chest is bilaterally symmetric, rhonchi (scattered), other (prolonged expiratory phase) Cardiovascular: No JVD; tachycardia, S1 and S2, systolic murmur Gastrointestional: soft, round, audible bowel sounds (hypoactive) Extremities: no lower extremity edema bilateral Neurologic/Psychiatric: grossly intact, power is 5/5 both on sides Skin: No rash, No ulcerations; other (multiple abrasions to knees and arms which are under dressings not removed; multiple bruises to arms and legs bilat) Results/Procedures: Labs Laboratory Tests 12/09/18 03:35: White Blood Count 12.9H, Red Blood Count 2.72L, Hemoglobin 8.5L, Hematocrit 26L , Mean Corpuscular Volume 94, Mean Corpuscular Hemoglobin 31, Mean Corpuscular Hemoglobin Concent 33, Red Cell Distribution Width 13.3, Platelet Count 264, Mean Platelet Volume 9.1, Neutrophils (%) (Auto) 92H, Lymphocytes (%) (Auto) 4L , Monocytes (%) (Auto) 4, Eosinophils (%) (Auto) 0, Basophils (%) (Auto) 0, Neutrophils # (Auto) 11.9H, Lymphocytes # (Auto) 0.6L, Monocytes # (Auto) 0.5, Eosinophils # (Auto) 0.0, Basophils # (Auto) 0.0, Sodium Level 138, Potassium Level 3.4L, Chloride Level 102, Carbon Dioxide Level 25, Anion Gap 11, Blood Urea Nitrogen 37H, Creatinine 1.59H, Estimat Glomerular Filtration Rate 31, BUN/ Creatinine Ratio 23, Glucose Level 146H, Calcium Level 8.7, Phosphorus Level 2.9 , Magnesium Level 1.9, B-Type Natriuretic Peptide 3337.7H 12/09/18 03:45: Blood Gas Puncture Site RT RADIAL, Blood Gas Patient Temperature 97.0, Arterial Blood pH 7.41, Arterial Blood Partial Pressure CO2 43, Arterial Blood Partial Pressure O2 45L, Arterial Blood HCO3 27, Arterial Blood Total CO2 28.6, Arterial Blood Oxygen Saturation 81L, Arterial Blood Base Excess 2.8H, Nahid Test YES-POS, Blood Gas Ventilator Setting NO, Blood Gas Inspired Oxygen 30% BIPAP 12/09/18 06:49: Activated Partial Thromboplast Time 29 Microbiology 12/05/18 Urine Culture - Final, Complete See Report Laboratory Tests 12/08/18 03:25 12/09/18 03:35 A/P: Assessment: Ac on chronic resp failure due to ac exac of COPD and ac giron CHF Ac NSTEMI, but card cath of 12/06/18 shows only minimal CAD and elevated LVEDP. Cath in 2008, following NSTEMI, had also not shown any significant CAD S/P non-syncopal fall on 12-05-18 resulting in multiple abrasions Chronic kidney disease, stage 3, with some contrast nephropathy post card cath of 12/06/18 TIA on Mar 08 2018 for which she was seen in the ED Severe chronic obstructive pulmonary disease due to prior tobaccoism. Tobaccoism that she quit in 2005. H/O cardiomyopathy with an ejection fraction of 30%, both ischemic and non- ischemic per cardiac catheterization from December 2008. Most recent echocardiogram of May 2017 showed LVEF 55-60%. Mild to mod AoR, TR, and MR. Diastolic dysfunction. Palpitations, probably related to known paroxysmal supraventricular tachycardia/ atrial fibrillation, currently controlled. The patient is considered intolerant to warfarin for several reasons, including episodes of marked epistaxis and hemoptysis, even without warfarin therapy. Also, she is prone to falls, given her generalized frail status. She refuses any oral anticoagulants; agrees only to aspirin for stroke prophylaxis Severe anxiety, currently controlled. Osteoporosis and degenerative joint disease Gastroesophageal reflux. H/O intermittent congestive heart failure due to diastolic and systolic dysfunction of the left ventricle, currently controlled. Chronic anemia being followed by Dr. Paz. Hyperlipidemia, well controlled on therapy with simvastatin. H/o left cataract surgery. Mild ascending aortic aneurysm measuring 4.2 cm found incidentally on a CT scan or 07/10/[address] King [place] nodules being followed by Dr King Carotid u/s of 04/19/18: less than 40% ROSY, 50-60% LICA stenoses Diagnosis of hypothyroidism in April 2018, managed by Dr Paz, but she has been noncompliant with thyroid replacement therapy Plan: * Multiple issues reviewed and discussed * Monitor labs closely * May transfer to floor * We discussed her CV issues with her in detail. We have went over the details of cath findings and our plan of treatment CASSIE ARANA MD FACP FAC CCDS Dec 09, 2018 14:28
--- NOTE | 2018-12-09 16:30 | NUR ---
ASSUMED CARE OF PT AT THIS TIME.
--- NOTE | 2018-12-09 17:00 | NUR ---
TRANSFERRED TO ROOM 413 PER BED. C/O ROOM 421 TOO COLD.
[2018-12-09] MEDS: SENNA W/DOCUSATE (SENOKOT S) TABLET PO SCH (20:31)
[2018-12-09] MEDS: hydrOXYzine (ATARAX) 10 MG TAB PO SCH (20:31)
[2018-12-09] MEDS: ATORVASTATIN 40 MG (LIPITOR) TABLET PO SCH (20:31)
[2018-12-09] MEDS: MIRTAZAPINE 15 MG (REMERON) TAB PO SCH (20:31)
[2018-12-10] MEDS: RT-ALBUTEROL SULF 2.5 MG/3 ML PRE-MIX VIAL INH SCH ×6 (02:41→22:11)
[2018-12-10 04:00] VITALS: BP 127/63
[2018-12-10] MEDS: ACETAMINOPHEN 325 MG TABLET PO SCH ×4 (04:51→23:01)
[2018-12-10] MEDS: NYSTATIN ORAL SUSP 5 ML UDC PO SCH ×4 (04:52→23:01)
[2018-12-10] MEDS: methylPREDNISolone 40 MG/ML (Solu-MEDROL) VIAL IV SCH ×4 (05:53→23:47)
[2018-12-10] MEDS: LACTOBACILLUS ACIDOPHILUS (PROBIOTIC) CAPSULE PO SCH ×3 (05:53→17:45)
[2018-12-10] MEDS: FUROSEMIDE 40 MG/4 ML INJ (LASIX) IVP SCH ×2 (05:53→17:45)
[2018-12-10 06:05] LABS: BASOPHILS % (AUTO) 0 % (0-10); EOSINOPHILS % (AUTO) 0 % (0-10); HEMATOCRIT 24 % (35-52); HEMOGLOBIN 7.7 G/DL (11.5-16.0); LYMPHOCYTES # (AUTO) 0.6 X 10^3 (1.0-4.0); LYMPHOCYTES % (AUTO) 6 % (12-44); MEAN CORPUSCULAR HEMOGLOBIN 31 PG (25-34); MEAN CORPUSCULAR HGB CONC 33 G/DL (32-36); MEAN CORPUSCULAR VOLUME 96 FL (80-99); MONOCYTES # (AUTO) 0.5 X 10^3 (0.0-1.0); MONOCYTES % (AUTO) 5 % (0-12); NEUTROPHILS # (AUTO) 8.9 X 10^3 (1.8-7.8); NEUTROPHILS % (AUTO) 89 % (42-75); PLATELET COUNT 270 10^3/uL (130-400); RED CELL DISTRIBUTION WIDTH 13.2 % (10.0-14.5); WHITE BLOOD COUNT 9.9 10^3/uL (4.3-11.0)
[2018-12-10 06:19] LABS: CALCIUM 8.6 MG/DL (8.5-10.1); CREATININE SERUM 1.56 MG/DL (0.60-1.30); PHOSPHORUS 2.7 MG/DL (2.3-4.7); POTASSIUM 3.6 MMOL/L (3.6-5.0)
[2018-12-10] MEDS: RT-ADVAIR HFA 115/21 MCG PER PUFF IH SCH ×2 (06:58→18:13)
[2018-12-10] MEDS: UMECLIDINIUM BROMIDE (INCRUSE ELLIPTA) 7'S IH SCH (06:58)
--- NOTE | 2018-12-10 07:31 | Pulmonary Progress Note ---
Subjective Time Seen by a Provider: 07:31 Subjective/Events-last exam No complications noted. Sepsis Event Evaluation Height, Weight, BMI Height: 5'0.00" Weight: 123lbs. 9.0oz. [id number]; 20.6 BMI Method:Stated Exam Exam Vital Signs Date Time Temp Pulse Resp B/P (MAP) Pulse Ox O2 Delivery O2 Flow Rate FiO2 12/10/18 07:11 Nasal Cannula 3.00 12/10/18 07:04 Nasal Cannula 3.00 12/10/18 06:58 95 High Flow N/C 4.00 12/10/18 04:00 97.4 90 23 127/63 (84) 98 High Flow N/C 6.00 12/10/18 02:41 99 High Flow N/C 3.00 12/10/18 01:00 90 12/09/18 23:50 98.2 111 23 138/63 (88) 97 High Flow N/C 6.00 12/09/18 22:33 99 High Flow N/C 4.00 12/09/18 21:00 High Flow N/C 3.00 12/09/18 19:24 98.8 107 24 156/69 (98) 96 High Flow N/C 6.00 12/09/18 19:01 96 12/09/18 18:55 99 High Flow N/C 6.00 12/09/18 16:39 98.2 95 22 123/67 (85) 99 High Flow N/C 6.00 12/09/18 16:30 Nasal Cannula 6.00 12/09/18 14:45 98 Vapotherm 8.00 12/09/18 12:00 High Flow N/C 6.00 12/09/18 11:00 96.3 105 36 129/70 (89) 99 High Flow N/C 6.00 12/09/18 10:30 100 Vapotherm 15.00 35 12/09/18 10:00 103 23 147/75 (99) 97 Vapotherm 35.00 15.00 12/09/18 09:00 100 23 131/71 (91) 98 Vapotherm 35.00 15.00 12/09/18 08:00 106 25 153/79 (103) 97 Vapotherm 35.00 15.00 12/09/18 08:00 Vapotherm 15.00 35 I & O 2/2/19 07:00 Intake Total 2050 ml Output Total 1950 ml Balance 100 ml Height & Weight Height: 5'0.00" Weight: 123lbs. 9.0oz. [id number]; 20.6 BMI Method:Stated General Appearance: No Apparent Distress HEENT: Normal ENT Inspection Neck: Supple Respiratory: Decreased Breath Sounds, Respiratory Distress, Rhonci Cardiovascular: Regular Rate, Rhythm, Systolic Murmur, Gallop/S4 Capillary Refill: Less Than 3 Seconds Gastrointestinal: normal bowel sounds, non tender, soft Extremity: Non Tender, No Calf Tenderness, No Pedal Edema Neurologic/Psychiatric: Alert, Oriented x3 Skin: Warm/Dry, Ecchymosis Results Lab Laboratory Tests 12/09/18 03:35 12/10/18 05:56 Assessment/Plan Assessment/Plan Acute NSTEMI COPDAE -Vapotherm/BiPAP PRN -titrate oxygen- pt is currently on Vapotherm high flow -PT is getting lasix 40 BID Atelectasis with pneumonia -Merrem currently ARF -monitor Anxiety HTN GREGOR JOSEPH DO Dec 10, 2018 07:31
[2018-12-10 07:58] VITALS: BP 129/63
[2018-12-10] MEDS: DIGOXIN 62.5 MCG (LANOXIN) TAB PO SCH (08:36)
[2018-12-10] MEDS: DILTIAZEM 120 MG (CARDIZEM CD) CAP PO SCH (08:37)
[2018-12-10] MEDS: LORazepam 1 MG (ATIVAN) TAB PO SCH ×2 (08:37→20:38)
[2018-12-10] MEDS: LOSARTAN 25 MG (COZAAR) TAB PO SCH (08:37)
[2018-12-10] MEDS: ASPIRIN E.C. 81 MG (ECOTRIN) TAB PO SCH (08:37)
[2018-12-10] MEDS: MEROPENEM 500 MG in NS (IVPB) 100 ML IV SCH ×2 (08:38→20:37)
[2018-12-10] MEDS: SENNA W/DOCUSATE (SENOKOT S) TABLET PO SCH ×2 (08:39→20:37)
[2018-12-10] MEDS ORDERED: FAMOTIDINE 20 MG (PEPCID) TABLET PO SCH (09:00)
[2018-12-10] MEDS: KCL 10 MEQ TAB (MICRO K) PO SCH ×2 (09:08→17:45)
[2018-12-10] MEDS: ARTIFICAL TEARS 0.4 ML UNIT DOSE (REFRESH PLUS) OU SCH ×3 (09:09→20:38)
--- NOTE | 2018-12-10 11:11 | Progress Note-Hospitalist ---
Subjective HPI/CC On Admission Date Seen by Provider: Dec 10, 2018 Time Seen by Provider: 11:30 Subjective/Events-last exam Patient doing well On BiPAP and Vapotherm Therapies are working with her May need SB no pain is reported Needs Pepcid at 430 p.m. Wants catheter out Bowel will move since given Senokot BID Review of Systems General: Fatigue Pulmonary: Dyspnea Gastrointestinal: Constipation Objective Exam Vital Signs Vital Signs Date Time Temp Pulse Resp B/P (MAP) Pulse Ox O2 Delivery O2 Flow Rate FiO2 12/10/18 12:35 97.5 104 24 121/59 (79) 95 Nasal Cannula 3.00 12/09/18 10:30 35 Capillary Refill : Less Than 3 SecondsLess Than 3 Seconds General Appearance: WD/WN, Chronically ill, Mild Distress, Thin Neck: Full Range of Motion, Normal Inspection, Non Tender, Supple, Carotid Bruit Respiratory: Chest Non Tender, No Respiratory Distress, Accessory Muscle Use, Crackles, Wheezing Cardiovascular: Regular Rate, Rhythm, No Edema, No Gallop, No JVD, No Murmur, Normal Peripheral Pulses Neurologic/Psychiatric: Alert, Oriented x3, No Motor/Sensory Deficits, Normal Mood/Affect Results/Procedures Lab Laboratory Tests 12/10/18 05:56 Patient resulted labs reviewed. Assessment/Plan Assessment and Plan Assess & Plan/Chief Complaint Assessment per PCP Dr Paz: 1. Elevated Troponin with normal cardiac cath--likely secondary to acute hypoxia 2. Acute Exacerbation of COPD--continue solumedrol, on oxygen and SVNS 3. RLL Pneumonia--cont Maxipime 4. Fall with left wrist skin tear and left knee contusion--wounds dressed, will start PT once respiratory status more stable 5. Thrush--continue nystatin 6. Acute Renal Insufficiency--hydrate and monitor Cr 7. Acute Respiratory Distress due to COPD and CHF--improved after BIPAP and diuresis, on Vapotherm during day and BiPAP overnight 8. Acute on Chronic Diastolic CHF--on IV lasix and diuresing well 9. Acute on Chronic Anemia--Hgb dropped to 8.5 toady so will monitor H/H 10. Start PT/OT and will need SWING bed 11. GERD change Pepcid to home dosing DC catheter Diagnosis/Problems Diagnosis/Problems (1) Elevated troponin Status: Acute (2) S/P cardiac cath Status: Acute (3) Pneumonia Status: Acute Qualifiers: Pneumonia type: due to unspecified organism (4) Frailty Status: Acute (5) COPD (chronic obstructive pulmonary disease) Status: Chronic Qualifiers: COPD type: unspecified COPD Qualified Codes: J44.9 - Chronic obstructive pulmonary disease, unspecified (6) Fall Status: Acute Qualifiers: Encounter type: initial encounter Qualified Codes: W19.XXXA - Unspecified fall, initial encounter (7) Skin tear Status: Acute Clinical Quality Measures DVT/VTE Risk/Contraindication: Risk Factor Score Per Nursin RFS Level Per Nursing on Admit: 3=High ANGIE MALONE DO Dec 10, 2018 11:11
[2018-12-10 12:35] VITALS: BP 121/59
--- NOTE | 2018-12-10 13:08 | Physical Therapy Daily Note ---
PT Daily Note-Current Subjective Pt sitting up eating upon arrival. Nurse is giving medications & Aide arrives for vitals. Pt agrees to PT. Dr Gomez checks on pt during tx. Pain Numeric Pain Scale: 5-Moderate Pain Location Body Site: Abdomen Mental Status Patient Orientation: Person, Place, Time, Situation Attachments: Oxygen, Kelley Catheter Transfers Therapy Code Descriptions/Definitions Functional Cotton Measure: 0=Not Assessed/NA 4=Minimal Assistance 1=Total Assistance 5=Supervision or Setup 2=Maximal Assistance 6=Modified Cotton 3=Moderate Assistance 7=Complete Cotton Therapy Quality Codes: 6 Independent with activity with or without an assistive device 5 Patient requires set up or clean up by helper. Patient completes activity by themselves 4 Supervision or touching assist (CGA). [place] provide cues , steadying assist 3 The helper provides less than half the effort to complete the activity 2 The helper provides more than half the effort to complete the activity 1 Dependent. The helper does all the effort to complete an activity 7 Patient refused to complete or attempt activity 9 The patient did not perform the activity before the current illness or injury 88 Not attempted due to Medical conditions or safety concerns Weight Bearing Right Lower Extremity: Right Full Weight Bearing Left Lower Extremity: Left Full Weight Bearing Treatments Pt completes vitals & meds then visits with [employer] about medical history and that pt doesn't feel up to PT today. Just really wants Kelley out so she can get up for better movement. Dr Gomez arrives and pt explains situation with wanting Kelley out. [employer] & pt discuss benefits of Therapy and what can be worked on. Nurse arrives to remove Kelley at this time. Pt resting in bed with all needs met. PT will see pt again on Wednesday. Assessment Current Status: Fair Progress Pt needs encouragement for participation in PT and feels everything will improve with removal of Kelley. PT Short Term Goals Short Term Goals Time Frame: Dec 16, 2018 Transfers (B,C,W/C) (FIM): 6 Gait (FIM): 2 Distance (FIM): 9=761-62 ft Gait Distance Comment: 100' Gait Level of Assist: 5 Gait Assistive Device: FWW PT Plan Problem List Problem List: Activity Tolerance, Functional Strength, Safety, Balance, Gait, Transfer Treatment/Plan Treatment Plan: Continue Plan of Care Treatment Plan: Bed Mobility, Education, Functional Activity [place], Functional Strength, Gait, Safety, Therapeutic Exercise, Transfers Treatment Duration: Dec 16, 2018 Frequency: 6 times per week Estimated Hrs Per Day: .25 hour per day Patient and/or Family Agrees t: Yes Safety Risks/Education Patient Education: Gait Training, Transfer Techniques, Correct Positioning, Disease Process, Safety Issues Teaching Recipient: Patient Teaching Methods: Discussion Response to Teaching: Verbalize Understanding Time/GCodes Time In: 1158 Time Out: 1210 Total Billed Treatment Time: 12 Total Billed Treatment 1, FA (12m) G Codes Necessary: NING Mcadams PTA Dec 10, 2018 13:08
[2018-12-10 15:50] VITALS: BP 133/63
[2018-12-10] MEDS: FAMOTIDINE 20 MG (PEPCID) TABLET PO SCH (17:45)
--- NOTE | 2018-12-10 18:40 | Progress Note-Cardiology ---
Cardiology SOAP Progress Note Subjective: Still short of breath Notes some leg swelling No cp or palp or syncope Objective: I&O/Vital Signs 12/10/18 12/10/18 12/10/18 12/10/18 06:58 06:59 07:04 07:11 Pulse 93 Pulse Ox 95 O2 Delivery High Flow N/C Nasal Cannula Nasal Cannula O2 Flow Rate 4.00 3.00 3.00 12/10/18 12/10/18 12/10/18 12/10/18 07:58 09:45 10:33 12:35 Temp 97.3 97.5 Pulse 95 104 Resp 22 24 B/P (MAP) 129/63 (85) 121/59 (79) Pulse Ox 95 95 95 O2 Delivery Nasal Cannula High Flow N/C High Flow N/C Nasal Cannula O2 Flow Rate 3.00 3.00 3.00 3.00 12/10/18 12/10/18 12/10/18 12/10/18 13:01 14:29 15:50 18:15 Temp 98.9 Pulse 97 95 Resp 22 B/P (MAP) 133/63 (86) Pulse Ox 91 95 97 O2 Delivery High Flow N/C High Flow N/C High Flow N/C O2 Flow Rate 3.00 3.00 3.00 12/10/18 18:21 O2 Delivery Nasal Cannula O2 Flow Rate 3.00 12/10/18 00:00 Intake Total 1600 ml Output Total 1200 ml Balance 400 ml Weight (Pounds): 123 Weight (Ounces): 9.0 Weight (Calculated Kilograms): 55.629568 Constitutional: AAO x 3, well-developed, well-nourished Respiratory: chest expansion is symmetric, chest is bilaterally symmetric, rhonchi (scattered), other (prolonged expiratory phase) Cardiovascular: No JVD; tachycardia, S1 and S2, systolic murmur Gastrointestional: soft, round, audible bowel sounds (hypoactive) Extremities: no lower extremity edema bilateral Neurologic/Psychiatric: grossly intact, power is 5/5 both on sides Skin: No rash, No ulcerations; other (multiple abrasions to knees and arms which are under dressings not removed; multiple bruises to arms and legs bilat) Results/Procedures: Labs Laboratory Tests 12/10/18 05:56: White Blood Count 9.9, Red Blood Count 2.48L, Hemoglobin 7.7L, Hematocrit 24L, Mean Corpuscular Volume 96, Mean Corpuscular Hemoglobin 31, Mean Corpuscular Hemoglobin Concent 33, Red Cell Distribution Width 13.2, Platelet Count 270, Mean Platelet Volume 9.0, Neutrophils (%) (Auto) 89H, Lymphocytes (%) (Auto) 6L , Monocytes (%) (Auto) 5, Eosinophils (%) (Auto) 0, Basophils (%) (Auto) 0, Neutrophils # (Auto) 8.9H, Lymphocytes # (Auto) 0.6L, Monocytes # (Auto) 0.5, Eosinophils # (Auto) 0.0, Basophils # (Auto) 0.0, Sodium Level 139, Potassium Level 3.6, Chloride Level 101, Carbon Dioxide Level 29, Anion Gap 9, Blood Urea Nitrogen 39H, Creatinine 1.56H, Estimat Glomerular Filtration Rate 32, BUN/ Creatinine Ratio 25, Glucose Level 139H, Calcium Level 8.6, Phosphorus Level 2.7 , Magnesium Level 2.0, B-Type Natriuretic Peptide 2908.2H Microbiology 12/05/18 Urine Culture - Final, Complete See Report Laboratory Tests 12/09/18 03:35 12/10/18 05:56 A/P: Assessment: Ac on chronic resp failure due to ac exac of COPD and ac giron CHF Worsening anemia of undetermined etiology, followed and treated by the [facility] NSTEMI, but card cath of 12/06/18 shows only minimal CAD and elevated LVEDP. Cath in 2008, following NSTEMI, had also not shown any significant CAD S/P non-syncopal fall on 12-05-18 resulting in multiple abrasions Chronic kidney disease, stage 3, with some contrast nephropathy post card cath of 12/06/18 TIA on Mar 08 2018 for which she was seen in the ED Severe chronic obstructive pulmonary disease due to prior tobaccoism. Tobaccoism that she quit in 2005. H/O cardiomyopathy with an ejection fraction of 30%, both ischemic and non- ischemic per cardiac catheterization from December 2008. Most recent echocardiogram of May 2017 showed LVEF 55-60%. Mild to mod AoR, TR, and MR. Diastolic dysfunction. Palpitations, probably related to known paroxysmal supraventricular tachycardia/ atrial fibrillation, currently controlled. The patient is considered intolerant to warfarin for several reasons, including episodes of marked epistaxis and hemoptysis, even without warfarin therapy. Also, she is prone to falls, given her generalized frail status. She refuses any oral anticoagulants; agrees only to aspirin for stroke prophylaxis Severe anxiety, currently controlled. Osteoporosis and degenerative joint disease Gastroesophageal reflux. H/O intermittent congestive heart failure due to diastolic and systolic dysfunction of the left ventricle, currently controlled. Hyperlipidemia, well controlled on therapy with simvastatin. H/o left cataract surgery. Mild ascending aortic aneurysm measuring 4.2 cm found incidentally on a CT scan or 07/10/[address] Christine Morales nodules being followed by Dr King Carotid u/s of 04/19/18: less than 40% ROSY, 50-60% LICA stenoses Diagnosis of hypothyroidism in April 2018, managed by Dr Paz, but she has been noncompliant with thyroid replacement therapy Plan: * Multiple issues reviewed and discussed * Monitor labs closely * Consider blood transfusion of H/H drops further CASSIE ARANA MD FACP FAC CCDS Dec 10, 2018 18:40
[2018-12-10] MEDS: morphine INJ 4 MG/ML 1 ML (VIAL/SYRINGE) IV PRN (19:01)
[2018-12-10] MEDS: ONDANSETRON 4 MG/2 ML (SDV) Z0FRAN IV PRN (19:02)
--- NOTE | 2018-12-10 19:02 | NUR ---
C/O OF NAUSEA AND ABD. PAIN. MORPHINE AND ZOFRAN GIVEN IV SLOWLY
[2018-12-10] MEDS: hydrOXYzine (ATARAX) 10 MG TAB PO SCH (20:38)
[2018-12-10] MEDS: MIRTAZAPINE 15 MG (REMERON) TAB PO SCH (20:38)
[2018-12-10] MEDS: ATORVASTATIN 40 MG (LIPITOR) TABLET PO SCH (20:39)
--- NOTE | 2018-12-10 20:42 | NUR ---
scanner in room not working
[2018-12-10 22:17] VITALS: BP 133/65
[2018-12-11] VITALS (8 sets, daily range): BP systolic 100–135; BP diastolic 53–62
[2018-12-11] MEDS: RT-ALBUTEROL SULF 2.5 MG/3 ML PRE-MIX VIAL INH SCH ×6 (02:08→22:48)
[2018-12-11] MEDS: ACETAMINOPHEN 325 MG TABLET PO SCH ×4 (04:52→22:08)
[2018-12-11] MEDS: NYSTATIN ORAL SUSP 5 ML UDC PO SCH ×4 (04:52→23:30)
[2018-12-11] MEDS: FUROSEMIDE 40 MG/4 ML INJ (LASIX) IVP SCH ×2 (06:49→17:30)
[2018-12-11] MEDS: methylPREDNISolone 40 MG/ML (Solu-MEDROL) VIAL IV SCH ×3 (06:49→17:30)
[2018-12-11] MEDS: LACTOBACILLUS ACIDOPHILUS (PROBIOTIC) CAPSULE PO SCH ×3 (06:49→17:04)
[2018-12-11] MEDS: RT-ADVAIR HFA 115/21 MCG PER PUFF IH SCH ×2 (07:10→18:58)
[2018-12-11] MEDS: UMECLIDINIUM BROMIDE (INCRUSE ELLIPTA) 7'S IH SCH (07:10)
[2018-12-11 07:55] LABS: BASOPHILS % (AUTO) 0 % (0-10); EOSINOPHILS % (AUTO) 0 % (0-10); HEMATOCRIT 22 % (35-52); LYMPHOCYTES # (AUTO) 1.5 X 10^3 (1.0-4.0); LYMPHOCYTES % (AUTO) 9 % (12-44); MEAN CORPUSCULAR HEMOGLOBIN 31 PG (25-34); MEAN CORPUSCULAR HGB CONC 31 G/DL (32-36); MEAN CORPUSCULAR VOLUME 98 FL (80-99); MEAN PLATELET VOLUME 9.3 FL (7.4-10.4); MONOCYTES # (AUTO) 1.8 X 10^3 (0.0-1.0); MONOCYTES % (AUTO) 11 % (0-12); NEUTROPHILS # (AUTO) 13.5 X 10^3 (1.8-7.8); NEUTROPHILS % (AUTO) 81 % (42-75); PLATELET COUNT 322 10^3/uL (130-400); RED CELL DISTRIBUTION WIDTH 13.8 % (10.0-14.5); WHITE BLOOD COUNT 16.8 10^3/uL (4.3-11.0)
[2018-12-11 07:59] LABS: HEMOGLOBIN 6.8 G/DL (11.5-16.0)
[2018-12-11 08:11] LABS: CALCIUM 8.7 MG/DL (8.5-10.1); CREATININE SERUM 1.53 MG/DL (0.60-1.30); MAGNESIUM 2.5 MG/DL (1.8-2.4); PHOSPHORUS 2.6 MG/DL (2.3-4.7); POTASSIUM 4.9 MMOL/L (3.6-5.0)
[2018-12-11] MEDS ORDERED: NS IV 500 ML 500 ML IV SCH (08:32)
[2018-12-11] MEDS ORDERED: FUROSEMIDE 40 MG/4 ML INJ (LASIX) IVP NR (08:45)
[2018-12-11] MEDS: MEROPENEM 500 MG in NS (IVPB) 100 ML IV SCH ×2 (08:54→20:42)
[2018-12-11] MEDS: KCL 10 MEQ TAB (MICRO K) PO SCH (08:54)
[2018-12-11] MEDS: ARTIFICAL TEARS 0.4 ML UNIT DOSE (REFRESH PLUS) OU SCH ×3 (08:55→20:42)
[2018-12-11] MEDS: LOSARTAN 25 MG (COZAAR) TAB PO SCH (08:55)
[2018-12-11] MEDS: LORazepam 1 MG (ATIVAN) TAB PO SCH ×2 (08:55→20:42)
[2018-12-11] MEDS: DIGOXIN 62.5 MCG (LANOXIN) TAB PO SCH (08:55)
[2018-12-11] MEDS: SENNA W/DOCUSATE (SENOKOT S) TABLET PO SCH ×2 (08:55→20:43)
[2018-12-11] MEDS: DILTIAZEM 120 MG (CARDIZEM CD) CAP PO SCH (08:55)
[2018-12-11] MEDS: ASPIRIN E.C. 81 MG (ECOTRIN) TAB PO SCH (08:55)
[2018-12-11] MEDS ORDERED: BISACODYL 10 MG SUPP (DULCOLAX) PR NR (10:30)
--- NOTE | 2018-12-11 10:35 | Pulmonary Progress Note ---
Subjective Time Seen by a Provider: 06:41 Subjective/Events-last exam No complications noted. Sepsis Event Evaluation Height, Weight, BMI Height: 5'0.00" Weight: 124lbs. 0.0oz. 56.799917ik; 20.6 BMI Method:Stated Exam Exam Vital Signs Date Time Temp Pulse Resp B/P (MAP) Pulse Ox O2 Delivery O2 Flow Rate FiO2 12/11/18 09:00 High Flow N/C 3.00 12/11/18 08:20 96.8 94 22 120/56 (77) 99 Nasal Cannula 3.00 12/11/18 07:17 87 95 32 12/11/18 07:15 95 Nasal Cannula 3.00 12/11/18 07:14 95 High Flow N/C 3.00 12/11/18 07:14 95 Nasal Cannula 3.00 12/11/18 07:00 89 12/11/18 02:10 98 High Flow N/C 3.00 12/11/18 01:00 87 12/11/18 00:00 98.0 95 20 100/60 (73) 94 Nasal Cannula 3.00 12/10/18 22:17 95 18 96 30.00 12/10/18 21:00 High Flow N/C 3.00 12/10/18 19:00 93 12/10/18 18:21 Nasal Cannula 3.00 12/10/18 18:15 97 High Flow N/C 3.00 12/10/18 15:50 98.9 95 22 133/63 (86) 95 High Flow N/C 3.00 12/10/18 14:29 91 High Flow N/C 3.00 12/10/18 13:01 97 12/10/18 12:35 97.5 104 24 121/59 (79) 95 Nasal Cannula 3.00 I & O 12/11/18 07:00 Intake Total 1120 ml Output Total 1300 ml Balance -180 ml Height & Weight Height: 5'0.00" Weight: 124lbs. 0.0oz. 56.494244fa; 20.6 BMI Method:Stated General Appearance: WD/WN, Chronically ill, Mild Distress, Thin HEENT: Normal ENT Inspection Neck: Full Range of Motion, Normal Inspection, Non Tender, Supple, Carotid Bruit Respiratory: Chest Non Tender, No Respiratory Distress, Accessory Muscle Use, Crackles, Wheezing Cardiovascular: Regular Rate, Rhythm, No Edema, No Gallop, No JVD, No Murmur, Normal Peripheral Pulses Capillary Refill: Less Than 3 Seconds Gastrointestinal: normal bowel sounds, non tender, soft Extremity: Non Tender, No Calf Tenderness, No Pedal Edema Neurologic/Psychiatric: Alert, Oriented x3, No Motor/Sensory Deficits, Normal Mood/Affect Skin: Warm/Dry, Ecchymosis Results Lab Laboratory Tests 12/10/18 05:56 12/11/18 07:28 Assessment/Plan Assessment/Plan COPDAE -Vapotherm/BiPAP PRN -titrate oxygen- pt is currently on Vapotherm high flow -PT is getting lasix 40 BID Atelectasis with pneumonia -Merrem currently ARF -monitor Anxiety HTN GREGOR JOSEPH DO Dec 11, 2018 10:35
--- NOTE | 2018-12-11 12:03 | Progress Note-Hospitalist ---
Subjective HPI/CC On Admission Date Seen by Provider: Dec 11, 2018 Time Seen by Provider: 11:00 Subjective/Events-last exam Patient doing about the same Needs 1 unit of transfusion today Shortness of breath continues Elevated BNP noted Patient lives alone and it appears that she has every intention of returning home but I doubt with as frail but she is that that is an option No bowel movement since 12/05 so gave suppository and may need soapsuds enema since she is a little nauseated Could not take potassium and noted it was 4.9 anyway so we'll put that on hold and give Lasix after 1 unit of transfusion Review of Systems General: Fatigue Pulmonary: Dyspnea Gastrointestinal: Constipation Objective Exam Vital Signs Vital Signs Date Time Temp Pulse Resp B/P (MAP) Pulse Ox O2 Delivery O2 Flow Rate FiO2 12/11/18 12:43 98.3 92 20 111/53 100 High Flow N/C 4.00 12/11/18 07:17 32 Capillary Refill : Less Than 3 SecondsLess Than 3 Seconds General Appearance: No Apparent Distress, WD/WN, Chronically ill Respiratory: Chest Non Tender, Accessory Muscle Use, Crackles, Decreased Breath Sounds, Wheezing Cardiovascular: Regular Rate, Rhythm, No Edema, No Gallop, No JVD, No Murmur, Normal Peripheral Pulses Neurologic/Psychiatric: Alert, Oriented x3, No Motor/Sensory Deficits, Normal Mood/Affect Results/Procedures Lab Laboratory Tests 12/11/18 07:28 Patient resulted labs reviewed. Assessment/Plan Assessment and Plan Assess & Plan/Chief Complaint Assessment per PCP Dr Paz: 1. Elevated Troponin with normal cardiac cath--likely secondary to acute hypoxia 2. Acute Exacerbation of COPD--continue solumedrol, on oxygen and SVNS 3. RLL Pneumonia--cont Maxipime 4. Fall with left wrist skin tear and left knee contusion--wounds dressed, will start PT once respiratory status more stable 5. Thrush--continue nystatin 6. Acute Renal Insufficiency--hydrate and monitor Cr 7. Acute Respiratory Distress due to COPD and CHF--improved after BIPAP and diuresis, on Vapotherm during day and BiPAP overnight 8. Acute on Chronic Diastolic CHF--on IV lasix and diuresing well 9. Acute on Chronic Anemia--Hgb dropped to 6.8 so giving 1 unit 10. Start PT/OT and will need SWING bed 11. GERD change Pepcid to home dosing 12. Constipation severe added supp and SSE BM regimen Hold potassium Likely needs NH Diagnosis/Problems Diagnosis/Problems (1) Pneumonia Status: Acute Qualifiers: Pneumonia type: due to unspecified organism (2) Anemia Status: Chronic Qualifiers: Anemia type: unspecified type Qualified Codes: D64.9 - Anemia, unspecified (3) Transfusion of blood during current hospitalization Status: Acute (4) Elevated troponin Status: Acute (5) Frailty Status: Acute (6) COPD (chronic obstructive pulmonary disease) Status: Chronic Qualifiers: COPD type: unspecified COPD Qualified Codes: J44.9 - Chronic obstructive pulmonary disease, unspecified (7) S/P cardiac cath Status: Acute Clinical Quality Measures DVT/VTE Risk/Contraindication: Risk Factor Score Per Nursin RFS Level Per Nursing on Admit: 3=High ANGIE MALONE DO Dec 11, 2018 12:02
--- NOTE | 2018-12-11 14:04 | Progress Note-Cardiology ---
Cardiology SOAP Progress Note Subjective: Shortness of breath persistent No cp or palp or syncope Persistent gen malaise and weakness Objective: I&O/Vital Signs 12/11/18 12/11/18 12/11/18 12/11/18 02:10 07:00 07:14 07:14 Pulse 89 Pulse Ox 98 95 95 O2 Delivery High Flow N/C Nasal Cannula High Flow N/C O2 Flow Rate 3.00 3.00 3.00 12/11/18 12/11/18 12/11/18 12/11/18 07:15 07:17 08:20 09:00 Temp 96.8 Pulse 87 94 Resp 22 B/P (MAP) 120/56 (77) Pulse Ox 95 95 99 O2 Delivery Nasal Cannula Nasal Cannula High Flow N/C O2 Flow Rate 3.00 3.00 3.00 FiO2 32 12/11/18 12/11/18 12/11/18 12/11/18 10:43 11:38 12:20 12:43 Temp 97.0 98.7 98.3 Pulse 93 112 92 Resp 20 18 20 B/P (MAP) 118/62 (80) 111/53 Pulse Ox 98 98 100 O2 Delivery High Flow N/C Nasal Cannula High Flow N/C High Flow N/C O2 Flow Rate 3.00 3.00 4.00 4.00 12/11/18 13:00 Pulse 88 12/11/18 00:00 Intake Total 820 ml Output Total 900 ml Balance -80 ml Weight (Pounds): 124 Weight (Ounces): 0.0 Weight (Calculated Kilograms): 56.105537 Constitutional: AAO x 3, well-developed, well-nourished Respiratory: chest expansion is symmetric, chest is bilaterally symmetric, rhonchi (scattered), other (prolonged expiratory phase) Cardiovascular: No JVD; tachycardia, S1 and S2, systolic murmur Gastrointestional: soft, round, audible bowel sounds (hypoactive) Extremities: no lower extremity edema bilateral Neurologic/Psychiatric: grossly intact, power is 5/5 both on sides Skin: No rash, No ulcerations; other (multiple abrasions to knees and arms which are under dressings not removed; multiple bruises to arms and legs bilat) Results/Procedures: Labs Laboratory Tests 12/11/18 07:28: White Blood Count 16.8H, Red Blood Count 2.22L, Hemoglobin 6.8*L, Hematocrit 22L , Mean Corpuscular Volume 98, Mean Corpuscular Hemoglobin 31, Mean Corpuscular Hemoglobin Concent 31L, Red Cell Distribution Width 13.8, Platelet Count 322, Mean Platelet Volume 9.3, Neutrophils (%) (Auto) 81H, Lymphocytes (%) (Auto) 9L , Monocytes (%) (Auto) 11, Eosinophils (%) (Auto) 0, Basophils (%) (Auto) 0, Neutrophils # (Auto) 13.5H, Lymphocytes # (Auto) 1.5, Monocytes # (Auto) 1.8H, Eosinophils # (Auto) 0.0, Basophils # (Auto) 0.0, Sodium Level 141, Potassium Level 4.9, Chloride Level 103, Carbon Dioxide Level 25, Anion Gap 13, Blood Urea Nitrogen 77H, Creatinine 1.53H, Estimat Glomerular Filtration Rate 33, BUN/ Creatinine Ratio 50, Glucose Level 149H, Calcium Level 8.7, Phosphorus Level 2.6 , Magnesium Level 2.5H, B-Type Natriuretic Peptide 2039.8H 12/11/18 12:50: Stool Occult Blood Immunoassay NEGATIVE Microbiology 12/05/18 Urine Culture - Final, Complete See Report Laboratory Tests 12/10/18 05:56 12/11/18 07:28 A/P: Assessment: Ac on chronic resp failure due to ac exac of COPD and ac giron CHF Worsening anemia of undetermined etiology, followed and treated by the [facility] NSTEMI, but card cath of 12/06/18 shows only minimal CAD and elevated LVEDP. Cath in 2008, following NSTEMI, had also not shown any significant CAD S/P non-syncopal fall on 12-05-18 resulting in multiple abrasions Chronic kidney disease, stage 3, with some contrast nephropathy post card cath of 12/06/18 TIA on Mar 08 2018 for which she was seen in the ED Severe chronic obstructive pulmonary disease due to prior tobaccoism. Tobaccoism that she quit in 2005. H/O cardiomyopathy with an ejection fraction of 30%, both ischemic and non- ischemic per cardiac catheterization from December 2008. Most recent echocardiogram of May 2017 showed LVEF 55-60%. Mild to mod AoR, TR, and MR. Diastolic dysfunction. Palpitations, probably related to known paroxysmal supraventricular tachycardia/ atrial fibrillation, currently controlled. The patient is considered intolerant to warfarin for several reasons, including episodes of marked epistaxis and hemoptysis, even without warfarin therapy. Also, she is prone to falls, given her generalized frail status. She refuses any oral anticoagulants; agrees only to aspirin for stroke prophylaxis Severe anxiety, currently controlled. Osteoporosis and degenerative joint disease Gastroesophageal reflux. H/O intermittent congestive heart failure due to diastolic and systolic dysfunction of the left ventricle, currently controlled. Hyperlipidemia, well controlled on therapy with simvastatin. H/o left cataract surgery. Mild ascending aortic aneurysm measuring 4.2 cm found incidentally on a CT scan or 07/10/[address] Christine Morales nodules being followed by Dr King Carotid u/s of 04/19/18: less than 40% ROSY, 50-60% LICA stenoses Diagnosis of hypothyroidism in April 2018, managed by Dr Paz, but she has been noncompliant with thyroid replacement therapy Plan: * We recommend consideration of blood transfusion and eval and treatment of the source of her anemia. This is being managed by the [facility] * Complex management due to multiple comorbidities * Multiple issues reviewed and discussed * Monitor labs closely CASSIE ARANA MD FACP FACC CCDS Dec 11, 2018 14:04
[2018-12-11] MEDS: FAMOTIDINE 20 MG (PEPCID) TABLET PO SCH (15:44)
[2018-12-11] MEDS: hydrOXYzine (ATARAX) 10 MG TAB PO SCH (20:42)
[2018-12-11] MEDS: MIRTAZAPINE 15 MG (REMERON) TAB PO SCH (20:43)
[2018-12-11] MEDS: ATORVASTATIN 40 MG (LIPITOR) TABLET PO SCH (20:43)
[2018-12-12] VITALS (12 sets, daily range): BP systolic 97–149; BP diastolic 50–72
[2018-12-12] MEDS: methylPREDNISolone 40 MG/ML (Solu-MEDROL) VIAL IV SCH ×4 (00:18→21:46)
[2018-12-12] MEDS: RT-ALBUTEROL SULF 2.5 MG/3 ML PRE-MIX VIAL INH SCH ×6 (02:49→21:31)
[2018-12-12] MEDS: ACETAMINOPHEN 325 MG TABLET PO SCH ×4 (03:43→23:40)
[2018-12-12] MEDS: NYSTATIN ORAL SUSP 5 ML UDC PO SCH ×4 (03:43→23:40)
[2018-12-12 05:03] LABS: BASOPHILS # (AUTO) 0.1 10^3/uL (0.0-0.1); BASOPHILS % (AUTO) 0 % (0-10); EOSINOPHILS % (AUTO) 0 % (0-10); HEMATOCRIT 22 % (35-52); HEMOGLOBIN 7.4 G/DL (11.5-16.0); LYMPHOCYTES # (AUTO) 1.7 X 10^3 (1.0-4.0); LYMPHOCYTES % (AUTO) 9 % (12-44); MEAN CORPUSCULAR HEMOGLOBIN 31 PG (25-34); MEAN CORPUSCULAR HGB CONC 33 G/DL (32-36); MEAN CORPUSCULAR VOLUME 92 FL (80-99); MEAN PLATELET VOLUME 9.3 FL (7.4-10.4); MONOCYTES # (AUTO) 1.2 X 10^3 (0.0-1.0); MONOCYTES % (AUTO) 6 % (0-12); NEUTROPHILS % (AUTO) 85 % (42-75); PLATELET COUNT 236 10^3/uL (130-400); RED CELL DISTRIBUTION WIDTH 15.3 % (10.0-14.5); WHITE BLOOD COUNT 18.9 10^3/uL (4.3-11.0)
[2018-12-12 05:28] LABS: CALCIUM 8.2 MG/DL (8.5-10.1); CREATININE SERUM 1.41 MG/DL (0.60-1.30); PHOSPHORUS 3.3 MG/DL (2.3-4.7)
[2018-12-12] MEDS: LACTOBACILLUS ACIDOPHILUS (PROBIOTIC) CAPSULE PO SCH ×3 (06:24→18:50)
[2018-12-12] MEDS: FUROSEMIDE 40 MG/4 ML INJ (LASIX) IVP SCH ×2 (06:24→18:50)
[2018-12-12] MEDS: UMECLIDINIUM BROMIDE (INCRUSE ELLIPTA) 7'S IH SCH (06:43)
[2018-12-12] MEDS: RT-ADVAIR HFA 115/21 MCG PER PUFF IH SCH ×2 (06:43→21:30)
--- NOTE | 2018-12-12 06:43 | Pulmonary Progress Note ---
Subjective Time Seen by a Provider: 06:42 Subjective/Events-last exam No complications noted. Sepsis Event Evaluation Height, Weight, BMI Height: 5'0.00" Weight: 123lbs. 0.0oz. 55.517989qp; 20.6 BMI Method:Stated Exam Exam Vital Signs Date Time Temp Pulse Resp B/P (MAP) Pulse Ox O2 Delivery O2 Flow Rate FiO2 12/12/18 04:48 93 20 96 30.00 12/12/18 02:50 90 18 95 30.00 12/12/18 01:00 87 12/12/18 00:55 82 21 96 30.00 12/12/18 00:02 98.4 83 16 107/56 (73) 98 High Flow N/C 3.00 12/11/18 22:48 83 16 95 30.00 12/11/18 21:00 High Flow N/C 3.00 12/11/18 20:27 98.4 105 21 135/61 (85) 96 High Flow N/C 4.00 12/11/18 19:59 86 12/11/18 19:08 95 Nasal Cannula 3.00 12/11/18 18:58 98 High Flow N/C 3.00 12/11/18 16:01 98.3 80 18 128/60 (82) 99 High Flow N/C 4.00 4.00 12/11/18 15:28 98.3 80 18 128/60 99 High Flow N/C 4.00 12/11/18 14:08 96 High Flow N/C 3.00 12/11/18 13:00 88 12/11/18 12:43 98.3 92 20 111/53 100 High Flow N/C 4.00 12/11/18 12:20 98.7 112 18 High Flow N/C 4.00 12/11/18 11:38 97.0 93 20 118/62 (80) 98 Nasal Cannula 3.00 12/11/18 10:43 98 High Flow N/C 3.00 12/11/18 09:00 High Flow N/C 3.00 12/11/18 08:20 96.8 94 22 120/56 (77) 99 Nasal Cannula 3.00 12/11/18 07:17 87 95 32 12/11/18 07:15 95 Nasal Cannula 3.00 12/11/18 07:14 95 High Flow N/C 3.00 12/11/18 07:14 95 Nasal Cannula 3.00 12/11/18 07:00 89 I & O 12/12/18 07:00 Intake Total 1910 ml Output Total 2125 ml Balance -215 ml Height & Weight Height: 5'0.00" Weight: 123lbs. 0.0oz. 55.600800bl; 20.6 BMI Method:Stated General Appearance: WD/WN, Chronically ill, Mild Distress, Thin HEENT: Normal ENT Inspection Neck: Full Range of Motion, Normal Inspection, Non Tender, Supple, Carotid Bruit Respiratory: Chest Non Tender, No Respiratory Distress, Accessory Muscle Use, Crackles, Wheezing Cardiovascular: Regular Rate, Rhythm, No Edema, No Gallop, No JVD, No Murmur, Normal Peripheral Pulses Capillary Refill: Less Than 3 Seconds Gastrointestinal: normal bowel sounds, non tender, soft Extremity: Non Tender, No Calf Tenderness, No Pedal Edema Neurologic/Psychiatric: Alert, Oriented x3, No Motor/Sensory Deficits, Normal Mood/Affect Skin: Warm/Dry, Ecchymosis Results Lab Laboratory Tests 12/11/18 07:28 12/12/18 04:35 Assessment/Plan Assessment/Plan COPDAE -Vapotherm/BiPAP PRN -titrate oxygen- pt is currently on Vapotherm high flow -PT is getting lasix 40 BID Atelectasis with pneumonia -Merrem currently ARF -monitor Anxiety HTN GREGOR JOSEPH DO Dec 12, 2018 06:43
[2018-12-12] MEDS: ARTIFICAL TEARS 0.4 ML UNIT DOSE (REFRESH PLUS) OU SCH ×3 (08:20→21:45)
[2018-12-12] MEDS: SENNA W/DOCUSATE (SENOKOT S) TABLET PO SCH ×2 (08:20→21:45)
[2018-12-12] MEDS: DILTIAZEM 120 MG (CARDIZEM CD) CAP PO SCH (08:20)
[2018-12-12] MEDS: LOSARTAN 25 MG (COZAAR) TAB PO SCH (08:20)
[2018-12-12] MEDS: DIGOXIN 62.5 MCG (LANOXIN) TAB PO SCH (08:20)
[2018-12-12] MEDS: ASPIRIN E.C. 81 MG (ECOTRIN) TAB PO SCH (08:20)
[2018-12-12] MEDS: LORazepam 1 MG (ATIVAN) TAB PO SCH ×2 (08:20→21:45)
[2018-12-12] MEDS: MEROPENEM 500 MG in NS (IVPB) 100 ML IV SCH ×2 (08:20→21:45)
--- NOTE | 2018-12-12 09:50 | Diagnostic Imaging Report ---
INDICATION: Followup pneumonia. COMPARISON: 12/09/2018. FINDINGS: Frontal and lateral radiographic views of the chest were obtained and show normal cardiac silhouette and pulmonary vasculature. There is improved aeration of the right base, although infiltrative opacities persist. Left lung is stable. There is no large effusion or pneumothorax on either side. Bony structures show no gross acute abnormalities. IMPRESSION: 1. Persistent, but improved infiltrate in the right lower lung. Dictated by: Dictated on workstation # [id number]
--- NOTE | 2018-12-12 10:14 | Physical Therapy Daily Note ---
PT Daily Note-Current Subjective Pt in bed and agrees to PT but reports that she is feeling really bad today, SOB. Pt asked PT why they aren't turning up her O2 a notch, PT educated pt that she is not getting rid of her CO2 and that increasing it would only make things worse. Pain Numeric Pain Scale: 0-No Pain Location: No Pain Reported Mental Status Patient Orientation: Person, Place, Situation, Normal For Age Attachments: Oxygen (5L), IV Transfers Therapy Code Descriptions/Definitions Functional [place] Measure: 0=Not Assessed/NA 4=Minimal Assistance 1=Total Assistance 5=Supervision or Setup 2=Maximal Assistance 6=Modified [place] 3=Moderate Assistance 7=Complete [place] Therapy Quality Codes: 6 Independent with activity with or without an assistive device 5 Patient requires set up or clean up by helper. Patient completes activity by themselves 4 Supervision or touching assist (CGA). [place] provide cues , steadying assist 3 The helper provides less than half the effort to complete the activity 2 The helper provides more than half the effort to complete the activity 1 Dependent. The helper does all the effort to complete an activity 7 Patient refused to complete or attempt activity 9 The patient did not perform the activity before the current illness or injury 88 Not attempted due to Medical conditions or safety concerns Transfers (B, C, W/C) (FIM): 5 Scootin Supine to/from Sit: 5 Sit to/from Stand: 5 Weight Bearing Right Lower Extremity: Right Full Weight Bearing Left Lower Extremity: Left Full Weight Bearing Gait Training Gait (FIM): 1 Distance (FIM): 1=up to 49 ft Distance: 5' Gait Level of Assist: 5 Gait Persons Needed: 1 Gait Assistive Device: None Assessment Current Status: Poor Progress Pt was able to perform bed mobility SBA. X-ray came to get pt with w/c. Pt was able to sit<>stand from EOB with SBA and amb 5' with no AD to w/c. Pt SaO2 before activity was 98% after transfer to w/c pts SaO2 was 91%. Pt is with x- ray. PT Short Term Goals Short Term Goals Time Frame: Dec 16, 2018 Transfers (B,C,W/C) (FIM): 6 Gait (FIM): 2 Distance (FIM): 5=042-26 ft Gait Distance Comment: 100' Gait Level of Assist: 5 Gait Assistive Device: FWW PT Plan Problem List Problem List: Activity Tolerance, Functional Strength, Safety, Balance, Gait, Transfer, Bed Mobility, ROM Treatment/Plan Treatment Plan: Continue Plan of Care Treatment Plan: Bed Mobility, Education, Functional Activity [place], Functional Strength, Gait, Safety, Therapeutic Exercise, Transfers Treatment Duration: Dec 16, 2018 Frequency: 6 times per week Estimated Hrs Per Day: .25 hour per day Patient and/or Family Agrees t: Yes Time/GCodes Time In: 830 Time Out: 839 Total Billed Treatment Time: 9 Total Billed Treatment 1 visit FA 9 min JANI WASSERMAN PT Dec 12, 2018 10:13
--- NOTE | 2018-12-12 11:03 | Progress Note-Cardiology ---
Cardiology SOAP Progress Note Subjective: No cp Shortness of breath somewhat better after blood transfusion, but it has not resolved No palp or syncope Gen malaise is persistent Objective: I&O/Vital Signs 12/12/18 12/12/18 12/12/18 12/12/18 00:02 00:55 01:00 02:50 Temp 98.4 Pulse 83 82 87 90 Resp 16 21 18 B/P (MAP) 107/56 (73) Pulse Ox 98 96 95 O2 Delivery High Flow N/C O2 Flow Rate 3.00 30.00 30.00 12/12/18 12/12/18 12/12/18 12/12/18 04:48 06:44 06:44 06:44 Pulse 93 Resp 20 Pulse Ox 96 98 95 O2 Delivery Nasal Cannula High Flow N/C Nasal Cannula O2 Flow Rate 30.00 3.00 3.00 3.00 12/12/18 12/12/18 12/12/18 12/12/18 07:00 08:00 09:00 09:50 Temp 98.0 Pulse 95 92 Resp 18 B/P (MAP) 126/57 (80) Pulse Ox 96 98 O2 Delivery High Flow N/C High Flow N/C High Flow N/C O2 Flow Rate 3.00 3.00 3.00 12/12/18 00:00 Intake Total 1810 ml Output Total 1725 ml Balance 85 ml Weight (Pounds): 123 Weight (Ounces): 0.0 Weight (Calculated Kilograms): 55.896058 Constitutional: AAO x 3, well-developed, well-nourished Respiratory: chest expansion is symmetric, chest is bilaterally symmetric, rhonchi (scattered), other (prolonged expiratory phase) Cardiovascular: No JVD; tachycardia, S1 and S2, systolic murmur Gastrointestional: soft, round, audible bowel sounds (hypoactive) Extremities: no lower extremity edema bilateral Neurologic/Psychiatric: grossly intact, power is 5/5 both on sides Skin: No rash, No ulcerations; other (multiple abrasions to knees and arms which are under dressings not removed; multiple bruises to arms and legs bilat) Results/Procedures: Labs Laboratory Tests 12/11/18 12:50: Stool Occult Blood Immunoassay NEGATIVE 12/12/18 04:35: White Blood Count 18.9H, Red Blood Count 2.41L, Hemoglobin 7.4L, Hematocrit 22L , Mean Corpuscular Volume 92, Mean Corpuscular Hemoglobin 31, Mean Corpuscular Hemoglobin Concent 33, Red Cell Distribution Width 15.3H, Platelet Count 236, Mean Platelet Volume 9.3, Neutrophils (%) (Auto) 85H, Lymphocytes (%) (Auto) 9L , Monocytes (%) (Auto) 6, Eosinophils (%) (Auto) 0, Basophils (%) (Auto) 0, Neutrophils # (Auto) 16.0H, Lymphocytes # (Auto) 1.7, Monocytes # (Auto) 1.2H, Eosinophils # (Auto) 0.0, Basophils # (Auto) 0.1, Sodium Level 140, Potassium Level 4.0, Chloride Level 99, Carbon Dioxide Level 30, Anion Gap 11, Blood Urea Nitrogen 87H, Creatinine 1.41H, Estimat Glomerular Filtration Rate 36, BUN/ Creatinine Ratio 62, Glucose Level 138H, Calcium Level 8.2L, Phosphorus Level 3.3, Magnesium Level 2.0, B-Type Natriuretic Peptide 912.5H Microbiology 12/05/18 Urine Culture - Final, Complete See Report Laboratory Tests 12/11/18 07:28 12/12/18 04:35 A/P: Assessment: Ac on chronic resp failure due to ac exac of COPD and ac giron CHF Marked anemia of undetermined etiology, [facility] s/ p transfusion Ac NSTEMI, but card cath of 12/06/18 shows only minimal CAD and elevated LVEDP. Cath in 2008, following NSTEMI, had also not shown any significant CAD S/P non-syncopal fall on 12-05-18 resulting in multiple abrasions Chronic kidney disease, stage 3, with some contrast nephropathy post card cath of 12/06/18 TIA on Mar 08 2018 for which she was seen in the ED Severe chronic obstructive pulmonary disease due to prior tobaccoism. Tobaccoism that she quit in 2005. H/O cardiomyopathy with an ejection fraction of 30%, both ischemic and non- ischemic per cardiac catheterization from December 2008. Most recent echocardiogram of May 2017 showed LVEF 55-60%. Mild to mod AoR, TR, and MR. Diastolic dysfunction. Palpitations, probably related to known paroxysmal supraventricular tachycardia/ atrial fibrillation, currently controlled. The patient is considered intolerant to warfarin for several reasons, including episodes of marked epistaxis and hemoptysis, even without warfarin therapy. Also, she is prone to falls, given her generalized frail status. She refuses any oral anticoagulants; agrees only to aspirin for stroke prophylaxis Severe anxiety, currently controlled. Osteoporosis and degenerative joint disease Gastroesophageal reflux. H/O intermittent congestive heart failure due to diastolic and systolic dysfunction of the left ventricle, currently controlled. Hyperlipidemia, well controlled on therapy with simvastatin. H/o left cataract surgery. Mild ascending aortic aneurysm measuring 4.2 cm found incidentally on a CT scan or 07/10/[address] Christine Morales nodules being followed by Dr King Carotid u/s of 04/19/18: less than 40% ROSY, 50-60% LICA stenoses Diagnosis of hypothyroidism in April 2018, managed by Dr Paz, but she has been noncompliant with thyroid replacement therapy Plan: * Complex management due to multiple comorbidities * Multiple issues reviewed and discussed * Monitor labs closely CASSIE ARANA MD FACP FAC CCDS Dec 12, 2018 11:03
[2018-12-12] MEDS ORDERED: predniSONE 20 MG TAB PO SCH (12:00)
[2018-12-12] MEDS ORDERED: FUROSEMIDE 40 MG/4 ML INJ (LASIX) IVP SCH (12:45)
--- NOTE | 2018-12-12 13:11 | NUR ---
Patient fall. Patient was sitting on bedside commode with staff in room. Patient stated "Oh no! I am going to fall!" Patient fell to knees and proceeded to lie down on floor. Patient helped up by PCT and RN and put in bed. Vital signs obtained and patient assessed for injury.
--- NOTE | 2018-12-12 13:15 | Occupational Ther Daily Note ---
OT Current Status-Daily Note Subjective Pt alert, lying in bed. Pt agrees to therapy. No c/o pain at this time. Mental Status/Objective Patient Orientation: Person, Place, Time, Situation Therapy Code Descriptions/Definitions Functional [place] Measure: 0=Not Assessed/NA 4=Minimal Assistance 1=Total Assistance 5=Supervision or Setup 2=Maximal Assistance 6=Modified [place] 3=Moderate Assistance 7=Complete [place] Attachments: IV, Oxygen Other Treatment Pt given light resistance theraband for UE strengthening, 2 sets 5 reps. Increased SOA with exertion and long recovery breaks. Educated pt on energy conservation techniques for daily tasks. Pt able to verbalize personal strategies and understanding of conservation tech. After therapy, pt lying in bed with call light/phone in reach. All needs met in room. Education OT Patient Education: Energy conservation Teaching Recipient: Patient Teaching Methods: Discussion Response to Teaching: Verbalize Understanding OT Short Term Goals Short Term Goals Time Frame: Dec 23, 2018 Eating(FIM): 7 Grooming(FIM): 7 Upper Body Dressing(FIM): 6 Lower Body Dressing(FIM): 4 Toileting(FIM): 6 Transfers (B,C,W/C) (FIM): 6 Toilet/Commode Transfer(FIM): 6 Shower Transfer(FIM): 6 Additional Short Term Goals: 1-Demonstrate ADL Tasks, 2-Verbalize Understanding , 3-ImproveStrength/[place] 1=Demonstrate adherence to instructed precautions during ADL tasks. 2=Patient will verbalize/demonstrate understanding of assistive devices/ modifications for ADL. 3=Patient will improve strength/tolerance for activity to enable patient to perform ADL's. OT Head Of It Goals Head Of It Goals Time Frame: Jan 06, 2019 Eating (FIM): 7 Grooming(FIM): 7 Bathing(FIM): 7 Bathing Location: L Arm, R Arm, L Upper Leg, R Upper Leg, L Lower Leg ( including foot), R Lower Leg (including foot), Chest, Abdomen, Buttocks, Perineal Area Upper Body Dressing(FIM): 7 Lower Body Dressing(FIM): 7 Toileting(FIM): 7 Transfers (B,C,W/C) (FIM): 7 Toilet/Commode Transfer(FIM): 7 Shower Transfer(FIM): 7 Additional Goals: 1-Demonstrate ADL Tasks, 2-Verbalize Understanding, 3- ImproveStrength/[place] 1=Demonstrate adherence to instructed precautions during ADL tasks. 2=Patient will verbalize/demonstrate understanding of assistive devices/ modifications for ADL. 3=Patient will improve strength/tolerance for activity to enable patient to perform ADL's. OT Education/Plan Discharge Recommendations Plan/Recommendations: Continue POC Treatment Plan/Plan of Care Patient would benefit from OT for education, treatment and training to promote independence in ADL's, mobility, safety and/or upper extremity function for ADL' s. Plan of Care: ADL Retraining, Caregiver Training, Functional Mobility, UE Funct Exercise/Act, UE Neuromus Re-Ed/Coord Treatment Duration: Jan 06, 2019 Frequency: 5 times per week Estimated Hrs Per Day: .25 hour per day Agreement: Yes Rehab Potential: Good Time/GCodes Start Time: 12:14 Stop Time: 12:29 Total Time Billed (hr/min): 15 Billed Treatment Time 1 visit-FA 1 (15 min) JO ANN LUNA Dec 12, 2018 13:15
[2018-12-12] MEDS: ONDANSETRON 4 MG/2 ML (SDV) Z0FRAN IV PRN (15:41)
[2018-12-12] MEDS ORDERED: PANTOPRAZOLE 40 MG (PROTONIX) VIAL IV NR (16:00)
--- NOTE | 2018-12-12 17:30 | Progress Note (SOAP) ---
Subjective Date Seen by a Provider: Dec 12, 2018 Time Seen by a Provider: 12:45 Subjective/Events-last exam Fwup elevated troponin, COPD with acute exacerbation, UTI, fall with left arm skin tear and knee abrasions, anemia, CHF. Had blood transfusion yesterday but hemoglobin still low. Very weak. Objective Exam Vital Signs Date Time Temp Pulse Resp B/P (MAP) Pulse Ox O2 Delivery O2 Flow Rate FiO2 12/12/18 15:29 95 24 107/53 98 High Flow N/C 3.00 12/12/18 15:19 98.4 90 24 105/50 96 High Flow N/C 3.00 12/12/18 15:00 91 24 106/50 100 High Flow N/C 3.00 12/12/18 14:13 98 High Flow N/C 3.00 12/12/18 13:00 99 12/12/18 12:11 98.0 100 18 119/57 (77) 97 High Flow N/C 3.00 12/12/18 09:50 98 High Flow N/C 3.00 12/12/18 09:00 High Flow N/C 3.00 12/12/18 08:00 98.0 92 18 126/57 (80) 96 High Flow N/C 3.00 12/12/18 07:00 95 12/12/18 06:44 95 Nasal Cannula 3.00 12/12/18 06:44 98 High Flow N/C 3.00 12/12/18 06:44 Nasal Cannula 3.00 12/12/18 04:48 93 20 96 30.00 12/12/18 02:50 90 18 95 30.00 12/12/18 01:00 87 12/12/18 00:55 82 21 96 30.00 12/12/18 00:02 98.4 83 16 107/56 (73) 98 High Flow N/C 3.00 12/11/18 22:48 83 16 95 30.00 12/11/18 21:00 High Flow N/C 3.00 12/11/18 20:27 98.4 105 21 135/61 (85) 96 High Flow N/C 4.00 12/11/18 19:59 86 12/11/18 19:08 95 Nasal Cannula 3.00 12/11/18 18:58 98 High Flow N/C 3.00 I & O 12/12/18 07:00 Intake Total 1910 ml Output Total 2125 ml Balance -215 ml Capillary Refill : Less Than 3 SecondsLess Than 3 Seconds General Appearance: Mild Distress (respiratory) Neck: Supple Respiratory: Decreased Breath Sounds, Wheezing Cardiovascular: Regular Rate, Rhythm, Systolic Murmur, Gallop/S4 Gastrointestinal: normal bowel sounds, non tender, soft Extremity: Non Tender, No Calf Tenderness, No Pedal Edema Neurologic/Psychiatric: Alert, Oriented x3 Skin: Ecchymosis (to bilateral arms and bilateral shins), Pallor Results Lab Laboratory Tests 12/12/18 04:35: White Blood Count 18.9H, Red Blood Count 2.41L, Hemoglobin 7.4L, Hematocrit 22L , Mean Corpuscular Volume 92, Mean Corpuscular Hemoglobin 31, Mean Corpuscular Hemoglobin Concent 33, Red Cell Distribution Width 15.3H, Platelet Count 236, Mean Platelet Volume 9.3, Neutrophils (%) (Auto) 85H, Lymphocytes (%) (Auto) 9L , Monocytes (%) (Auto) 6, Eosinophils (%) (Auto) 0, Basophils (%) (Auto) 0, Neutrophils # (Auto) 16.0H, Lymphocytes # (Auto) 1.7, Monocytes # (Auto) 1.2H, Eosinophils # (Auto) 0.0, Basophils # (Auto) 0.1, Sodium Level 140, Potassium Level 4.0, Chloride Level 99, Carbon Dioxide Level 30, Anion Gap 11, Blood Urea Nitrogen 87H, Creatinine 1.41H, Estimat Glomerular Filtration Rate 36, BUN/ Creatinine Ratio 62, Glucose Level 138H, Calcium Level 8.2L, Phosphorus Level 3.3, Magnesium Level 2.0, B-Type Natriuretic Peptide 912.5H 12/12/18 12:32: Lab Scanned Report Transfusion Reaction Form Microbiology 12/05/18 Urine Culture - Final, Complete See Report Assessment/Plan Assessment/Plan Assess & Plan/Chief Complaint 1. Elevated Troponin with normal cardiac cath--likely secondary to acute hypoxia 2. Acute Exacerbation of COPD--continue solumedro but wean dose as patient is unable to take oral prednisone and oral methylprednisilone is not available on pharmacy formulary, on oxygen and SVNS 3. RLL Pneumonia--cont Maxipime 4. Fall with left wrist skin tear and left knee contusion--wounds dressed 5. Thrush--continue nystatin 6. Acute Renal Insufficiency--hydrate and monitor Cr 7. Acute Respiratory Distress due to COPD and CHF--down to NC 8. Acute on Chronic Diastolic CHF--on IV lasix and diuresing well 9. Acute on Chronic Anemia--transfusion this weekend but hemoglobin only 7.4 so will given 2 more units today 10. Continue PT/OT and do SWING bed evaluation Clinical Quality Measures Admission Status Admission Dx 1. Acute non STEMI--admit to cardiac in ICU on Brilinta and Heparin with cardiac catheterization by cardiology 2. Hypertension--resume home meds 3. COPD--oxygen, nebulizer treatments 4. UTI--started on Bactrim 5. Chronic Anemia--monitor H/H 6. Left wrist skin tear and abrasions from fall--dressed and will monitor for bleeding with blood thinners DVT/VTE Risk/Contraindication: Risk Factor Score Per Nursin RFS Level Per Nursing on Admit: 3=High MELODY MCGEE DO Dec 12, 2018 17:30
[2018-12-12] MEDS: FAMOTIDINE 20 MG (PEPCID) TABLET PO SCH (18:50)
[2018-12-12] MEDS: ATORVASTATIN 40 MG (LIPITOR) TABLET PO SCH (21:45)
[2018-12-12] MEDS: hydrOXYzine (ATARAX) 10 MG TAB PO SCH (21:45)
[2018-12-12] MEDS: MIRTAZAPINE 15 MG (REMERON) TAB PO SCH (21:46)
[2018-12-12] MEDS: morphine INJ 4 MG/ML 1 ML (VIAL/SYRINGE) IV PRN (21:47)
[2018-12-13] VITALS (30 sets, daily range): BP systolic 40–125; BP diastolic 21–62
[2018-12-13 03:21] LABS: BASOPHILS # (AUTO) 0.1 10^3/uL (0.0-0.1); BASOPHILS % (AUTO) 0 % (0-10); EOSINOPHILS % (AUTO) 0 % (0-10); HEMATOCRIT 33 % (35-52); HEMOGLOBIN 11.8 G/DL (11.5-16.0); LYMPHOCYTES # (AUTO) 2.5 X 10^3 (1.0-4.0); LYMPHOCYTES % (AUTO) 5 % (12-44); MEAN CORPUSCULAR HEMOGLOBIN 30 PG (25-34); MEAN CORPUSCULAR HGB CONC 35 G/DL (32-36); MEAN CORPUSCULAR VOLUME 86 FL (80-99); MEAN PLATELET VOLUME 9.5 FL (7.4-10.4); MONOCYTES # (AUTO) 2.5 X 10^3 (0.0-1.0); MONOCYTES % (AUTO) 5 % (0-12); NEUTROPHILS # (AUTO) 50.2 X 10^3 (1.8-7.8); NEUTROPHILS % (AUTO) 91 % (42-75); PLATELET COUNT 218 10^3/uL (130-400); RED CELL DISTRIBUTION WIDTH 15.9 % (10.0-14.5)
[2018-12-13 03:24] LABS: WHITE BLOOD COUNT 55.3 10^3/uL (4.3-11.0)
--- NOTE | 2018-12-13 03:24 | NUR ---
0324- This RN received a call from lab informing of critical WBC count of 55.3. 0327- This RN attempted to notify Dr. Paz. No answer, voicemail left requesting return phone call.
[2018-12-13] MEDS: RT-ALBUTEROL SULF 2.5 MG/3 ML PRE-MIX VIAL INH SCH ×6 (03:30→22:38)
--- NOTE | 2018-12-13 03:33 | NUR ---
This RN made second attempt to notify Dr. Paz of critical WBC count. No answer.
--- NOTE | 2018-12-13 03:36 | NUR ---
This RN attempted to notify Dr. Paz of critical WBC count. No answer.
[2018-12-13 03:37] LABS: CALCIUM 8.2 MG/DL (8.5-10.1); CREATININE SERUM 1.59 MG/DL (0.60-1.30); MAGNESIUM 2.8 MG/DL (1.8-2.4); PHOSPHORUS 4.8 MG/DL (2.3-4.7); POTASSIUM 3.5 MMOL/L (3.6-5.0)
--- NOTE | 2018-12-13 03:39 | NUR ---
This RN contacted Dr. Paz r/t increase WBC count. Orders received for 2-view chest x-ray this morning, UA, blood culture x2, et Levaquin 500 mg IV daily to start now.
[2018-12-13] MEDS ORDERED: LEVOFLOXACIN 500 MG/100 ML IV 100 ML ONE (03:43)
[2018-12-13] MEDS ORDERED: LEVOFLOXACIN 500 MG/100 ML IV 100 ML IV SCH (03:45)
[2018-12-13 03:52] LABS: BAND NEUTROPHILS 3 %; LYMPHOCYTES % (MANUAL) 2 %; METAMYELOCYTES % 2 %; MONOCYTES % (MANUAL) 8 %; NEUTROPHILS % (MANUAL) 85 %; SPHEROCYTES MODERATE
[2018-12-13 03:53] LABS: POLYCHROMASIA SLIGHT
[2018-12-13 05:01] LABS: BILIRUBIN,URINE NEGATIVE (NEGATIVE); CLARITY,URINE CLEAR; COLOR,URINE YELLOW; GLUCOSE, URINE (UA) NEGATIVE (NEGATIVE); KETONES,URINE NEGATIVE (NEGATIVE); LEUKOCYTE ESTERASE ,URINE 1+ (NEGATIVE); NITRITE,URINE NEGATIVE (NEGATIVE); PH,URINE 5 (5-9); PROTEIN,URINE NEGATIVE (NEGATIVE); UROBILINOGEN,URINE NORMAL (NORMAL)
[2018-12-13 05:12] LABS: BACTERIA,URINE NEGATIVE /HPF
[2018-12-13] MEDS: methylPREDNISolone 40 MG/ML (Solu-MEDROL) VIAL IV SCH ×2 (05:26→14:51)
[2018-12-13] MEDS: FUROSEMIDE 40 MG/4 ML INJ (LASIX) IVP SCH ×2 (05:27→18:44)
[2018-12-13] MEDS: NYSTATIN ORAL SUSP 5 ML UDC PO SCH ×3 (05:27→18:45)
[2018-12-13] MEDS: LACTOBACILLUS ACIDOPHILUS (PROBIOTIC) CAPSULE PO SCH ×3 (05:28→18:44)
[2018-12-13] MEDS: ACETAMINOPHEN 325 MG TABLET PO SCH ×3 (05:28→18:44)
--- NOTE | 2018-12-13 07:30 | NUR ---
ASSESSED PT AND PT VOICED SLIGHT DISCOMFORT TO ABD -- PT VOICED SHE WAS SLEEPING
--- NOTE | 2018-12-13 07:49 | Diagnostic Imaging Report ---
PATIENT HISTORY: Leukocytosis, fall. TECHNIQUE: Two views of the chest. COMPARISON: 12/12/2018. FINDINGS: Lung volumes are large. Emphysematous changes are noted. No focal consolidation is seen. There is biapical pleural scarring, left greater than right. There is chronic blunting of the left costophrenic angle, thought to be due to scarring as well. The cardiac silhouette is normal in size. There is aortic atherosclerosis. There is diffuse osteopenia. IMPRESSION: Chronic findings in the lungs with no acute pulmonary abnormality seen. Dictated by: Dictated on workstation # [id number]
--- NOTE | 2018-12-13 07:57 | Pulmonary Progress Note ---
Subjective Time Seen by a Provider: 07:57 Subjective/Events-last exam Called to bedside secondary to severe pain. Pt complains of severe abdominal pain. denies nausea. Pt has Worsening Leukocytosis. Sepsis Event Evaluation Height, Weight, BMI Height: 5'0.00" Weight: 121lbs. 8.0oz. 55.401127dt; 20.6 BMI Method:Stated Focused Exam Lactate Level 12/13/18 04:25: Lactic Acid Level 1.67 Lactic Acid Level Laboratory Tests Test 12/13/18 04:25 Lactic Acid Level 1.67 MMOL/L (0.50-2.00) Exam Exam Vital Signs Date Time Temp Pulse Resp B/P (MAP) Pulse Ox O2 Delivery O2 Flow Rate FiO2 12/13/18 06:56 91 High Flow N/C 3.00 12/13/18 04:28 97.4 87 22 119/56 (77) 97 High Flow N/C 3.00 12/13/18 03:33 97 High Flow N/C 3.00 12/13/18 01:00 87 12/13/18 00:00 97.0 89 20 125/58 (80) 95 High Flow N/C 3.00 12/12/18 21:40 97.4 87 20 149/65 Nasal Cannula 3.00 12/12/18 21:20 95 High Flow N/C 3.00 12/12/18 21:00 High Flow N/C 3.00 12/12/18 20:00 98.4 82 18 142/72 (95) 98 High Flow N/C 3.00 12/12/18 19:07 97.4 87 22 115/58 96 High Flow N/C 3.00 12/12/18 19:00 88 12/12/18 18:45 97.2 95 20 97/57 98 High Flow N/C 3.00 12/12/18 18:11 98.4 96 22 145/65 99 High Flow N/C 3.00 12/12/18 16:00 98.2 78 18 136/72 (93) 98 High Flow N/C 3.00 12/12/18 15:29 95 24 107/53 98 High Flow N/C 3.00 12/12/18 15:19 98.4 90 24 105/50 96 High Flow N/C 3.00 12/12/18 15:00 91 24 106/50 100 High Flow N/C 3.00 12/12/18 14:13 98 High Flow N/C 3.00 12/12/18 13:00 99 12/12/18 12:11 98.0 100 18 119/57 (77) 97 High Flow N/C 3.00 12/12/18 09:50 98 High Flow N/C 3.00 12/12/18 09:00 High Flow N/C 3.00 12/12/18 08:00 98.0 92 18 126/57 (80) 96 High Flow N/C 3.00 I & O 12/13/18 07:00 Intake Total 930 ml Output Total 1725 ml Balance -795 ml Height & Weight Height: 5'0.00" Weight: 121lbs. 8.0oz. 55.716130rk; 20.6 BMI Method:Stated General Appearance: Mild Distress (respiratory) HEENT: Normal ENT Inspection Neck: Supple Respiratory: Decreased Breath Sounds, Wheezing Cardiovascular: Regular Rate, Rhythm, Systolic Murmur, Gallop/S4 Capillary Refill: Less Than 3 Seconds Gastrointestinal: normal bowel sounds, non tender, soft Extremity: Non Tender, No Calf Tenderness, No Pedal Edema Neurologic/Psychiatric: Alert, Oriented x3 Skin: Ecchymosis (to bilateral arms and bilateral shins), Pallor Results Lab Laboratory Tests 12/12/18 04:35 12/13/18 03:10 Assessment/Plan Assessment/Plan COPDAE -Vapotherm/BiPAP PRN -titrate oxygen- pt is currently on Vapotherm high flow -PT is getting lasix 40 BID Severe abdominal pain with guarding and rebound tenderness r/o acute abdomen -Check stat CT scan -Consult surgery Hypotension -IVF - will give a 1 liter bolus Atelectasis with pneumonia -Merrem , Levaquin ARF -monitor Anxiety HTN I d/w Brandi, halfwaycal staff, and Dr. Yates. Dr. Yates is going to evaluate patient. I am going to transfer pt to ICU. total time spent with patient is 60min Critical Care: Critically Ill Patient Time spent with patient (mins): 60 GREGOR JOSEPH DO Dec 13, 2018 07:57
--- NOTE | 2018-12-13 08:30 | NUR ---
Swing Bed Note: To room to assess patient for swing bed. She appears to be breathing short shallow breaths et reports that she is in pain. Julian PCT is in the room taking her vital signs. The patients o2 saturation is 65% on 3LPM via NC. Increased o2 to 5LPM et called RT to room to assess if she needs to be changed to Bi-Pap. Susie from RT arrived quickly et o2 sats have now increased to 98% et was decreased back to 3LPM. Susie talked with patient et she reports that she doesn't want the Bi-pap at this time. [facility] taking the patient's bp at this time et it is noted that it is 80's systolic et 40's diastolic. Moved patient up in bed et she cries out in pain. Questioned further where the pain is located et she reports her abdomen. She also reported that her pain has been there for the past 2 days. Updated the primary care nurse BPhrenetta RN on patient condition et concerns for consideration of perforation. She said she thought she was supposed to be scoped today. Notified Dr. Paz et Dr. King of concerns. Dr. King at the hospital et so he came up and saw the patient. He talked with Jael about the possibility of needing emergent surgery. She reports that she is in pain et just wants that to "go away". Dr. King called et spoke with Dr. Paz et then he proceeded to call surgery to notify of possible need. Per Dr. whiteside this nurse called a rapid response. Staff responded quickly et began readying patient to go for a CT of abdomen. From there she will be admitted to the ICU. Dr. King talked with surgery. I f/u with the patients son Dominic #[phone] to notify him of the interventions that were taking place et to ask about further wishes for treatment. He reported that he will do what ever Dr. Paz thinks is appropriate for his mother. We visited at 0922 et he is on his way to the hospital approximately [address] Paz here et we visited. She took Dominic's phone number et will visit with him as well.
[2018-12-13] MEDS: MEROPENEM 500 MG in NS (IVPB) 100 ML IV SCH (08:51)
[2018-12-13] MEDS: ARTIFICAL TEARS 0.4 ML UNIT DOSE (REFRESH PLUS) OU SCH ×2 (08:51→14:25)
[2018-12-13] MEDS: morphine INJ 4 MG/ML 1 ML (VIAL/SYRINGE) IV PRN (08:51)
[2018-12-13] MEDS: LORazepam 1 MG (ATIVAN) TAB PO SCH ×2 (08:52→09:40)
[2018-12-13] MEDS: DIGOXIN 62.5 MCG (LANOXIN) TAB PO SCH ×2 (08:52→09:45)
[2018-12-13] MEDS: SENNA W/DOCUSATE (SENOKOT S) TABLET PO SCH ×2 (08:54→09:45)
--- NOTE | 2018-12-13 08:55 | NUR ---
AFTER REPORT FROM [facility] THIS RN CALLED DR MCGEE AND LEFT MESSAGE -- AND GAVE PT IV MORPHINE PER PRN ORDERS AND GAVE IV ZOFRAN FOR C/O OF NAUSEA -- DR JOSEPH WAS IN AND WAS QUESTIONING PT ABOUT CODE STATUS -- AND DR JOSEPH VOICED HE HAD TALKED TO DR MCGEE AND THE NEED FOR SURGERY -- [facility] VOICED SHE HAD THE PT'S SON NUMBER AND SHE WOULD CALL HIM
--- NOTE | 2018-12-13 09:00 | NUR ---
NOTE THAT DUE TO INCREASED ABD DISCOMFORT AND POSSIBLE SURGERY -- AM MEDS WERE NON ADMIN
[2018-12-13] MEDS: ONDANSETRON 4 MG/2 ML (SDV) Z0FRAN IV PRN (09:02)
[2018-12-13] MEDS: ASPIRIN E.C. 81 MG (ECOTRIN) TAB PO SCH (09:45)
[2018-12-13] MEDS ORDERED: RECEIVED CONTRAST (Hold Metformin) IV SCH (09:45)
[2018-12-13] MEDS: DILTIAZEM 120 MG (CARDIZEM CD) CAP PO SCH (09:45)
[2018-12-13] MEDS: LOSARTAN 25 MG (COZAAR) TAB PO SCH (09:45)
[2018-12-13] MEDS ORDERED: IOHEXOL 350 MG/ML 100 ML (OMNIPAQUE 350) VIAL IV ONE (09:45)
[2018-12-13] MEDS ORDERED: NS 100 ML (IVPB) BAG IV ONE (09:45)
--- NOTE | 2018-12-13 09:56 | Physical Therapy Progress Note ---
Therapy Progress Note No treatment on this date due to patient's decline in medical status. PT will continue to monitor patient status to decide on POC. JANI WASSERMAN PT Dec 13, 2018 09:56
--- NOTE | 2018-12-13 10:00 | NUR ---
NOTE [facility]APID RESPONSE WAS CALLED AND PT TO HAVE CT AND TO ICU -- REPORT TO [facility] WORKER
--- NOTE | 2018-12-13 10:34 | Diagnostic Imaging Report ---
PROCEDURE: CT abdomen and pelvis with contrast. TECHNIQUE: Multiple contiguous axial images were obtained through the abdomen and pelvis after administration of intravenous contrast. DATE: December 13, 2018. COMPARISON: CT abdomen pelvis July 11, 2015. INDICATION: 78-year-old female, abdominal pain. Evaluation for bowel perforation. FINDINGS: There is a noncalcified left lower lobe 9 mm pulmonary nodule on axial image 5. This is unchanged since July 11, 2015 consistent with benign etiology. There are changes of cystic lung disease with likely relating to emphysema which are unchanged since comparison exam. There are predominantly linear opacities in the right lower lobe which are increased since comparison exam and may potentially relate to atelectasis and/or scarring. The heart is not enlarged. There is no identified pericardial effusion. The liver is unremarkable in size and contour. There is differential enhancement of the left and right lobes of the liver which is likely a perfusion related phenomenon. There is no identified concerning focal liver lesion. There is mild left intrahepatic bile duct dilation. The patient is status post cholecystectomy. The common bile duct is mildly prominent in size and measures up to approximately 8 mm in diameter. This is within normal limits for patient age. There is no CT apparent common bile duct stone. The main pancreatic duct is not abnormally dilated. There is a very small low-attenuation lesion in the tail of the pancreas measuring 3 mm in size on axial image 19. This potentially could relate to a very small side branch type albumin, or serous or mucinous pancreatic neoplasm. There are no findings to suggest acute or chronic pancreatitis. The spleen is not enlarged. There is a nonspecific low-attenuation lesion in the spleen measuring 1 cm in size which is grossly unchanged since July 2015 compatible with benign etiology. There is a left adrenal nodule measuring 1.6 cm in size on axial image 15. This previously measured 1.3 cm in size in July 2015 and previously had internal attenuation on prior noncontrast exam of 10 Hounsfield units. This is consistent with an adrenal adenoma. The right adrenal gland is unremarkable in appearance. There is a low-attenuation right renal lesion on axial image 18 which measures 1.6 cm in size with internal attenuation of 8 Hounsfield units consistent with a benign renal cyst. There are additional subcentimeter low-attenuation right renal lesions which are too small to characterize. There is a low-attenuation exophytic left renal lesion measuring 1.3 cm on axial image 24 with internal attenuation consistent with a benign cyst. There is an additional benign left renal cyst on axial image 30 which measures similar in size. The urinary collecting systems are not distended. There is no identified renal or ureteral stone. There are pelvic calcifications compatible with phleboliths. The urinary bladder is grossly unremarkable in appearance. There is prominent abnormal wall thickening of the proximal to mid sigmoid colon which is not in an area of diverticular disease best illustrated on axial image 58 and adjacent sequential images. There is no particularly prominent adjacent inflammatory stranding. There is a very small amount of free pelvic fluid. There is distention of the colon proximal to the site of abnormal wall thickening of the sigmoid colon with large amount of fecal material in the colon proximal to the area of bowel wall thickening. The transverse colon measures 5.8 cm in diameter. There is no pneumatosis. There is no portal venous gas. The cecum is positioned to the right of midline. There is no evidence of cecal volvulus. There is a mildly dilated loop of distal small bowel in the lower aspect of the anterior abdomen on axial image 59. There is a duodenal diverticulum in the region of the second/third portion of the duodenum. There is no free intraperitoneal air. There is no well-demarcated drainable fluid collection. There are atherosclerotic calcifications. There is no identified abnormally enlarged lymph node in the abdomen or pelvis which meets CT size criteria for adenopathy. There is no identified acute bony abnormality. There is grade 1 anterolisthesis of L4 on L5 relating to facet degenerative changes. There is severe disc height loss at L5-S1. There are additional degenerative changes of the spine. IMPRESSION: CT ABDOMEN AND PELVIS. 1. Abnormal wall thickening at the level of the proximal to mid sigmoid colon which is not in an area of diverticular disease. This is concerning for potential colonic malignancy. An infectious or inflammatory colitis would be the primary differential diagnostic consideration. There is distention and large amount of fecal material within the colon proximal to the area of abnormal bowel wall thickening. This is concerning for a distal colonic obstruction at the level of the abnormal bowel wall thickening. 2. No new free intraperitoneal air to suggest bowel perforation. No evidence of intestinal ischemia such as pneumatosis or portal venous gas. 3. Very small volume free pelvic fluid. No drainable fluid collection. 4. A left adrenal adenoma correlating with prior imaging. Dictated by: Dictated on workstation # [id number]
[2018-12-13] MEDS ORDERED: LACTATED RINGERS 1,000 ML IV ONE (10:41)
[2018-12-13] MEDS ORDERED: LACTATED RINGERS 1,000 ML IV NR (10:45)
--- NOTE | 2018-12-13 10:50 | NUR ---
call placed to Dr. King r/t patient hypotensive. Received order for 1 liter bolus of LR. Fluids started at this time.
--- NOTE | 2018-12-13 11:00 | NUR ---
Pastoral care visit, offered support, expressed department availability and services.
[2018-12-13] MEDS: UMECLIDINIUM BROMIDE (INCRUSE ELLIPTA) 7'S IH SCH (11:14)
[2018-12-13] MEDS: RT-ADVAIR HFA 115/21 MCG PER PUFF IH SCH (11:45)
--- NOTE | 2018-12-13 12:02 | Occ Therapy Progress Note ---
Therapy Progress Note Pt transferred to ICU secondary to change in medical status. Will require new orders for continued OT services when indicated. JARAD MARINO OT Dec 13, 2018 12:02
[2018-12-13] MEDS ORDERED: morphine INJ 4 MG/ML 1 ML (VIAL/SYRINGE) IVP PRN ×2 (12:15)
[2018-12-13] MEDS ORDERED: morphine INJ 4 MG/ML 1 ML (VIAL/SYRINGE) ONE (12:43)
[2018-12-13] MEDS ORDERED: PANTOPRAZOLE 40 MG (PROTONIX) VIAL IV NR (12:45)
[2018-12-13 12:53] LABS: BASOPHILS # (AUTO) 0.1 10^3/uL (0.0-0.1); BASOPHILS % (AUTO) 0 % (0-10); EOSINOPHILS % (AUTO) 0 % (0-10); HEMATOCRIT 30 % (35-52); HEMOGLOBIN 10.5 G/DL (11.5-16.0); LYMPHOCYTES # (AUTO) 2.1 X 10^3 (1.0-4.0); LYMPHOCYTES % (AUTO) 5 % (12-44); MEAN CORPUSCULAR HEMOGLOBIN 30 PG (25-34); MEAN CORPUSCULAR HGB CONC 35 G/DL (32-36); MEAN CORPUSCULAR VOLUME 86 FL (80-99); MEAN PLATELET VOLUME 9.7 FL (7.4-10.4); MONOCYTES # (AUTO) 1.2 X 10^3 (0.0-1.0); MONOCYTES % (AUTO) 3 % (0-12); NEUTROPHILS # (AUTO) 42.4 X 10^3 (1.8-7.8); NEUTROPHILS % (AUTO) 93 % (42-75); PLATELET COUNT 190 10^3/uL (130-400); RED CELL DISTRIBUTION WIDTH 16.4 % (10.0-14.5)
[2018-12-13 12:54] LABS: WHITE BLOOD COUNT 45.8 10^3/uL (4.3-11.0)
[2018-12-13 13:12] LABS: ALBUMIN 2.5 GM/DL (3.2-4.5); BILIRUBIN,TOTAL 0.6 MG/DL (0.1-1.0); CALCIUM 7.9 MG/DL (8.5-10.1); CREATININE SERUM 1.54 MG/DL (0.60-1.30); MAGNESIUM 2.6 MG/DL (1.8-2.4); PHOSPHORUS 4.8 MG/DL (2.3-4.7); POTASSIUM 3.5 MMOL/L (3.6-5.0); TOTAL PROTEIN 4.2 GM/DL (6.4-8.2)
[2018-12-13] MEDS ORDERED: DIATRIZOATE MEGLUM/SODIUM 37% 120 ML (GASTROGRAFIN) RC ONE (13:15)
--- NOTE | 2018-12-13 14:28 | Diagnostic Imaging Report ---
Indication: Abnormal CAT scan with bowel distention and questionable area of thickening in the sigmoid colon. The study is performed for further evaluation. Gastrografin contrast was infused into the colon in a retrograde fashion through a rectal tip. Spot films and overhead radiographs of the abdomen were obtained at multiple obliquities. A total of 3 minutes and 29 seconds of fluoroscopy was utilized. Correlation is made with CT study of the abdomen pelvis performed earlier the same day. Occasional diverticuli within the sigmoid colon are noted. The rectum is unremarkable. Descending colon is moderately distended by fecal material. No apple core lesion or mass is identified. Gastrografin did pass easily through the sigmoid colon into the descending colon. There was slow progression of Gastrografin through the splenic flexure into the transverse colon which also shows a large amount of stool. A right colon is limited in evaluation. Transverse colon is also somewhat limited. No intrinsic or extrinsic masses are seen. Impression: There is mild sigmoid diverticulosis. No obstructing lesion is identified. There is moderate distention of the colon by fecal material. Dictated by: Dictated on workstation # [id number]
--- NOTE | 2018-12-13 14:44 | Consultation ---
History of Present Illness History of Present Illness Patient Consulted On(vivian/time) 12/13/18 14:39 Date Seen by Provider: Dec 13, 2018 Time Seen by Provider: 11:20 Reason for Visit: fall at a parking lot leading to laceration and elevated troponin History of Present Illness admitted a week ago following a fall at a parking lot. Found to have elevated troponin. Cardiac catheterization negative for significant elective coronary artery disease. Recurrent exacerbations of COPD. Recent onset of constipation with increased abdominal pain early this morning. I been asked to see her regarding her acute abdomen. CT scan is negative for pneumoperitoneum or ischemic bowel. Polypectomy about 7 years ago. Allergies and Home Medications Allergies Coded Allergies: diphenhydramine HCl (Unverified Allergy, Severe, anaphalaxis, 09/10/14) Pt states this happened several yrs ago and that she had almost forgotten about it because she has avoided t for so long. fentanyl (Unverified Allergy, Mild, 09/10/14) PT DOES NOT WANT TO TAKE--SHE STAES IT MADE HER COPD WORSE midazolam (Unverified Allergy, Mild, PT TAKE LIBRIUM AT HOME, 09/10/14) PT DOESN'T WANT TO TAKE--SHE STATED IT MADE HER COPD OWRSE. Beta-Blockers (Beta-Adrenergic Bloc (Verified Allergy, Unknown, 09/10/14) Cephalosporins (Verified Allergy, Unknown, HAS RECEIVED CEFEPIME IN PAST W /O PROBLEM, 09/14/14) Penicillins (Verified Allergy, Unknown, HAS REC AZACTAM IN PAST WITHOUT PROBLEMS, 09/10/14) risedronic acid (Verified Allergy, Unknown, 09/10/14) prednisone (Unverified Adverse Reaction, Intermediate, Large doses cause SOA, 09/10/14) meperidine (Unverified Adverse Reaction, Mild, NAUSEA, 09/10/14) propofol (Unverified Adverse Reaction, Mild, 09/10/14) PT DOES NOT WANT TO TAKE--SHE STATES IT MADE HER COPD WORSE erythromycin base (Verified Adverse Reaction, Unknown, MAKES PATIENT NAUSEADED, 09/10/14) Home Medications Albuterol Sulfate 2.5 Mg/3 Ml Vial.neb, 2.5 MG NEB Q3H PRN for SHORTNESS OF BREATH, (Reported) Albuterol Sulfate 18 Gm Hfa.aer.ad, 2 PUFF INH Q4H PRN for SHORTNESS OF BREATH, (Reported) Aspirin 81 Mg Tablet.dr, 81 MG PO DAILY, (Reported) Carboxymethylcellulos/Glycerin 15 Ml Drops, 1 DROP OU TID PRN for DRY EYES, ( Reported) Chlordiazepoxide HCl 25 Mg Capsule, 25 MG PO BID, (Reported) Digoxin 125 Mcg Tablet, 62.5 MG PO DAILY, (Reported) TAKES 1/2 OF A (125 MCG) TABLET Diltiazem HCl 120 Mg Cap.er.24h, 120 MG PO DAILY, (Reported) Famotidine 20 Mg Tablet, 20 MG PO BID PRN for HEARTBURN, (Reported) Fluticasone/Salmeterol 12 Gm Hfa.aer.ad, 2 PUFF INH BID, (Reported) Furosemide 40 Mg Tablet, 20 MG PO DAILY, (Reported) TAKES 1/2 (40MG) TABLET Hydroxyzine HCl 10 Mg Tablet, 10 MG PO HS, (Reported) Losartan Potassium 50 Mg Tablet, 50 MG PO BID, (Reported) Mirtazapine 30 Mg Tablet, 30 MG PO HS, (Reported) Potassium Chloride 10 Meq Tablet.er, 10 MEQ PO DAILY, (Reported) Sennosides/Docusate Sodium 1 Each Tablet, 2 TAB PO DAILY PRN for CONSTIPATION- 6TH LINE, (Reported) Simvastatin 40 Mg Tablet, 40 MG PO HS, (Reported) Tiotropium [place] 1 Inh Aerp, 1 CAP IH DAILY, (Reported) Patient Home Medication List Home Medication List Reviewed: Yes Past [id number] Hx Patient Social History Alcohol Use: Denies Use Recreational Drug Use: No Smoking Status: Former Smoker Type Used: Cigarettes Former Smoker, Quit: Apr 12, 2006 2nd Hand Smoke Exposure: No Recent Foreign Travel: No Contact w/Someone Who Travel: No Recent Infectious Disease Expo: No Recent Hopitalizations: No Physical Abuse: No Sexual Abuse: No Mistreated: No Fear: No Immunizations Up To Date Tetanus Booster (TDap): More than 5yrs PED Vaccines UTD: Yes Date of Pneumonia Vaccine: Jul 09, 2012 Date of Influenza Vaccine: Aug 08, 2018 Seasonal Allergies Seasonal Allergies: Yes Past Medical History Surgeries: Yes (thoracotomy) Appendectomy, Gallbladder, Tonsillectomy Respiratory: Yes (HOME O2 AT 3L) Pneumonia, COPD, Emphysema Currently Using CPAP: No Currently Using BIPAP: No Cardiac: Yes (ISCHEMIC CARDIOMYOPATHY) Atrial Fibrillation, Hypertension Neurological: No Reproductive Disorders: No Female Reproductive Disorders: Denies Sexually Transmitted Disease: No HIV/AIDS: No Genitourinary: No Gastrointestinal: Yes Gastroesophageal Reflux, Diverticulosis, Hemorrhoids, Hiatal Hernia, Gall Bladder Disease Musculoskeletal: Yes Arthritis Endocrine: No HEENT: Yes (cataract removal) Cataract Loss of Vision: Denies Hearing Impairment: Hard of Hearing Cancer: No Psychosocial: Yes Anxiety, PTSD Integumentary: No Blood Disorders: No Adverse Reaction/Blood Tranf: No Family Medical History Alcoholism SONS Asthma DAUGHTER SONS Cardiovascular disease 19 MOTHER Cataracts 19 MOTHER Deafness or hearing loss G8 SISTER Diabetes mellitus SONS Gastroenteritis SONS Headache disorder SONS Hypertension SONS Myocardial infarction 19 FATHER Psychosocial problem 19 MOTHER No Family History of: AIDS Abdominal aortic aneurysm [place]'s disease Alzheimer's disease Aphasia Arthritis Cancer of mouth Colon cancer Completed stroke Congenital disease Congenital heart disease Coronary thrombosis Cystic fibrosis Dementia Drug abuse Dysphasia Fibrocystic disease of breast Glaucoma Hypercholesterolemia Infertility Kidney disease Neoplasm Not obtainable due to adoption Osteoporosis Parkinson's disease Prostate cancer Respiratory disorder Seizure disorder Severe allergy Thyroid disease Tuberculosis Visual disorder No Pertinent Family Hx Review of Systems-General Constitutional: weakness Respiratory: cough Cardiovascular: see HPI Gastrointestinal: abdominal pain (LLQ), constipation Musculoskeletal: no symptoms reported Skin: no symptoms reported Psychiatric/Neurological: No Symptoms Reported Physical Exam-General Problems Physical Exam Vital Signs Vital Signs - First Documented 12/07/18 12/08/18 03:32 06:25 Temp 97.7 FiO2 40 Capillary Refill : Less Than 3 SecondsLess Than 3 Seconds General Appearance: severe distress Neck: supple Respiratory: decreased breath sounds Cardiovascular: regular rate, rhythm Gastrointestinal: distended, tenderness Rectal: deferred Neurologic/Psychiatric: alert, oriented x 3 Skin: warm/dry Comments diffuse tenderness of the abdomen. No obvious external hernia. Assessment/Plan Assessment/Plan Admission Diagnosis/Plan Lady with features of acute abdomen. No evidence of perforation of hollow viscus. Mesenteric arteries patent with no evidence of ischemia. CT shows possible narrowing of the descending colon. And therefore a contrast enema obtained ruling out mechanical obstruction. 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 Should it continue unabated, intervention with diagnostic laparoscopy could be considered. Admission Status: Inpatient Order (span 2 midnights) Clinical Quality Measures DVT/VTE Risk/Contraindication: Risk Factor Score Per Nursin RFS Level Per Nursing on Admit: 3=High DIVYA PEREZ MD Dec 13, 2018 14:44
--- NOTE | 2018-12-13 15:00 | NUR ---
call placed to dr. mercado regarding patient hypotensive, received order for 1 liter bolus of ns at this time. Dr. mercado also requested labs be drawn at 1600 et results called.
[2018-12-13] MEDS ORDERED: POTASSIUM CL 10MEQ/50ML IVPB 200 ML IV ONE (15:04)
[2018-12-13] MEDS ORDERED: NS IV 1000 ML 1,000 ML ONE ×2 (15:05→20:08)
--- NOTE | 2018-12-13 15:07 | Progress Note-Cardiology ---
Cardiology SOAP Progress Note Objective: I&O/Vital Signs 12/16/18 12/16/18 12/16/18 12/16/18 03:00 04:00 04:00 04:00 Temp 97.4 Pulse 80 87 Resp 15 16 B/P (MAP) 111/52 (71) 94/44 (61) Pulse Ox 97 98 96 O2 Delivery Mechanical Ventilator Mechanical Ventilator Mechanical Ventilator O2 Flow Rate 25.00 25.00 FiO2 25 12/16/18 12/16/18 12/16/18 12/16/18 04:28 05:00 06:00 06:25 Pulse 92 87 106 Resp 16 16 19 B/P (MAP) 113/49 (70) 143/55 (84) Pulse Ox 98 97 95 92 O2 Delivery Mechanical Ventilator Vapotherm Vapotherm O2 Flow Rate 25.00 30.00 15.00 15.00 FiO2 25 30 12/16/18 12/16/18 12/16/18 12/16/18 07:00 07:00 08:00 08:00 Pulse 100 100 108 Resp 16 19 B/P (MAP) 126/56 (79) 147/65 (92) Pulse Ox 93 93 91 O2 Delivery Vapotherm Vapotherm Vapotherm O2 Flow Rate 30.00 15.00 30.00 15.00 15.00 FiO2 30 12/16/18 12/16/18 12/16/18 12/16/18 08:00 08:54 09:00 10:00 Temp 98.4 Pulse 105 85 Resp 30 33 B/P (MAP) 134/54 (80) 118/62 (80) Pulse Ox 91 92 O2 Delivery Vapotherm Vapotherm O2 Flow Rate 20.00 30.00 30.00 15.00 15.00 FiO2 30 12/16/18 12/16/18 12/16/18 12/16/18 10:00 11:00 11:12 11:37 Temp 98.3 Pulse 118 Resp 33 B/P (MAP) 124/97 (106) Pulse Ox 92 91 92 O2 Delivery Vapotherm Vapotherm Vapotherm O2 Flow Rate 20.00 30.00 20.00 20.00 FiO2 30 30 12/16/18 12/16/18 13:00 13:40 Pulse 82 Pulse Ox 95 O2 Delivery Vapotherm O2 Flow Rate 20.00 FiO2 30 12/16/18 00:00 Intake Total 1050 ml Output Total 700 ml Balance 350 ml Weight (Pounds): 121 Weight (Ounces): 8.0 Weight (Calculated Kilograms): 55.399300 Constitutional: AAO x 3, well-developed, well-nourished Respiratory: chest expansion is symmetric, chest is bilaterally symmetric, rhonchi (scattered), other (prolonged expiratory phase) Cardiovascular: No JVD; tachycardia, S1 and S2, systolic murmur Extremities: no lower extremity edema bilateral Neurologic/Psychiatric: grossly intact, power is 5/5 both on sides Skin: No rash, No ulcerations; other (multiple abrasions to knees and arms which are under dressings not removed; multiple bruises to arms and legs bilat) Results/Procedures: Labs Laboratory Tests 12/15/18 17:47: Blood Gas Puncture Site RIGHT RADIAL, Blood Gas Patient Temperature 100.1, Arterial Blood pH 7.40, Arterial Blood Partial Pressure CO2 36, Arterial Blood Partial Pressure O2 75L, Arterial Blood HCO3 21L, Arterial Blood Total CO2 22.5 , Arterial Blood Oxygen Saturation 96, Arterial Blood Base Excess -2.4, Nahid Test POSITIVE, Blood Gas Ventilator Setting NO, Blood Gas Inspired Oxygen PS 15/ 5 25% 12/15/18 18:08: Glucometer 112H 12/16/18 00:39: Glucometer 111H 12/16/18 03:12: Blood Gas Puncture Site LEFT RADIAL, Blood Gas Patient Temperature 97.4, Arterial Blood pH 7.38, Arterial Blood Partial Pressure CO2 39, Arterial Blood Partial Pressure O2 37*L, Arterial Blood HCO3 22L, Arterial Blood Total CO2 23.6 , Arterial Blood Oxygen Saturation 72L, Arterial Blood Base Excess -2.1, Nahid Test YES-POS, Blood Gas Ventilator Setting YES, Blood Gas Inspired Oxygen 25% 12/16/18 03:25: White Blood Count 29.0H, Red Blood Count 2.84L, Hemoglobin 8.2L, Hematocrit 25L , Mean Corpuscular Volume 87, Mean Corpuscular Hemoglobin 29, Mean Corpuscular Hemoglobin Concent 33, Red Cell Distribution Width 19.0H, Platelet Count 152, Mean Platelet Volume 9.7, Neutrophils (%) (Auto) 95H, Lymphocytes (%) (Auto) 2L , Monocytes (%) (Auto) 3, Eosinophils (%) (Auto) 0, Basophils (%) (Auto) 0, Neutrophils # (Auto) 27.6H, Lymphocytes # (Auto) 0.5L, Monocytes # (Auto) 1.0, Eosinophils # (Auto) 0.0, Basophils # (Auto) 0.0, Sodium Level 148H, Potassium Level 3.9, Chloride Level 116H, Carbon Dioxide Level 21, Anion Gap 11, Blood Urea Nitrogen 63H, Creatinine 1.49H, Estimat Glomerular Filtration Rate 34, BUN/ Creatinine Ratio 42, Glucose Level 105, Calcium Level 8.4L, Phosphorus Level 4.6 , Magnesium Level 2.3 12/16/18 03:47: Blood Gas Puncture Site RIGHT RADIAL, Blood Gas Patient Temperature 97.4, Arterial Blood pH 7.42, Arterial Blood Partial Pressure CO2 33L, Arterial Blood Partial Pressure O2 93, Arterial Blood HCO3 21L, Arterial Blood Total CO2 22.2, Arterial Blood Oxygen Saturation 98, Arterial Blood Base Excess -2.7L, Nahid Test YES-POS, Blood Gas Ventilator Setting YES, Blood Gas Inspired Oxygen 25% 12/16/18 12:13: Glucometer 186H Microbiology 12/13/18 Blood Culture - Preliminary, Resulted No growth 12/05/18 Urine Culture - Final, Complete See Report Procedures NAME: [facility] REC#: [id number] PT STATUS: ADM IN : 1940 PHYSICIAN: GREGOR KING DO ADMIT DATE: 12/05/18/ICU Signed Date of Exam: 12/13/18 CT ABDOMEN/PELVIS W PROCEDURE: CT abdomen and pelvis with contrast. TECHNIQUE: Multiple contiguous axial images were obtained through the abdomen and pelvis after administration of intravenous contrast. DATE: December 13, 2018. COMPARISON: CT abdomen pelvis July 11, 2015. INDICATION: 78-year-old female, abdominal pain. Evaluation for bowel perforation. FINDINGS: There is a noncalcified left lower lobe 9 mm pulmonary nodule on axial image 5. This is unchanged since July 11, 2015 consistent with benign etiology. There are changes of cystic lung disease with likely relating to emphysema which are unchanged since comparison exam. There are predominantly linear opacities in the right lower lobe which are increased since comparison exam and may potentially relate to atelectasis and/or scarring. The heart is not enlarged. There is no identified pericardial effusion. The liver is unremarkable in size and contour. There is differential enhancement of the left and right lobes of the liver which is likely a perfusion related phenomenon. There is no identified concerning focal liver lesion. There is mild left intrahepatic bile duct dilation. The patient is status post cholecystectomy. The common bile duct is mildly prominent in size and measures up to approximately 8 mm in diameter. This is within normal limits for patient age. There is no CT apparent common bile duct stone. The main pancreatic duct is not abnormally dilated. There is a very small low-attenuation lesion in the tail of the pancreas measuring 3 mm in size on axial image 19. This potentially could relate to a very small side branch type albumin, or serous or mucinous pancreatic neoplasm. There are no findings to suggest acute or chronic pancreatitis. The spleen is not enlarged. There is a nonspecific low-attenuation lesion in the spleen measuring 1 cm in size which is grossly unchanged since July 2015 compatible with benign etiology. There is a left adrenal nodule measuring 1.6 cm in size on axial image 15. This previously measured 1.3 cm in size in July 2015 and previously had internal attenuation on prior noncontrast exam of 10 Hounsfield units. This is consistent with an adrenal adenoma. The right adrenal gland is unremarkable in appearance. There is a low-attenuation right renal lesion on axial image 18 which measures 1.6 cm in size with internal attenuation of 8 Hounsfield units consistent with a benign renal cyst. There are additional subcentimeter low-attenuation right renal lesions which are too small to characterize. There is a low-attenuation exophytic left renal lesion measuring 1.3 cm on axial image 24 with internal attenuation consistent with a benign cyst. There is an additional benign left renal cyst on axial image 30 which measures similar in size. The urinary collecting systems are not distended. There is no identified renal or ureteral stone. There are pelvic calcifications compatible with phleboliths. The urinary bladder is grossly unremarkable in appearance. There is prominent abnormal wall thickening of the proximal to mid sigmoid colon which is not in an area of diverticular disease best illustrated on axial image 58 and adjacent sequential images. There is no particularly prominent adjacent inflammatory stranding. There is a very small amount of free pelvic fluid. There is distention of the colon proximal to the site of abnormal wall thickening of the sigmoid colon with large amount of fecal material in the colon proximal to the area of bowel wall thickening. The transverse colon measures 5.8 cm in diameter. There is no pneumatosis. There is no portal venous gas. The cecum is positioned to the right of midline. There is no evidence of cecal volvulus. There is a mildly dilated loop of distal small bowel in the lower aspect of the anterior abdomen on axial image 59. There is a duodenal diverticulum in the region of the second/third portion of the duodenum. There is no free intraperitoneal air. There is no well-demarcated drainable fluid collection. There are atherosclerotic calcifications. There is no identified abnormally enlarged lymph node in the abdomen or pelvis which meets CT size criteria for adenopathy. There is no identified acute bony abnormality. There is grade 1 anterolisthesis of L4 on L5 relating to facet degenerative changes. There is severe disc height loss at L5-S1. There are additional degenerative changes of the spine. IMPRESSION: CT ABDOMEN AND PELVIS. 1. Abnormal wall thickening at the level of the proximal to mid sigmoid colon which is not in an area of diverticular disease. This is concerning for potential colonic malignancy. An infectious or inflammatory colitis would be the primary differential diagnostic consideration. There is distention and large amount of fecal material within the colon proximal to the area of abnormal bowel wall thickening. This is concerning for a distal colonic obstruction at the level of the abnormal bowel wall thickening. 2. No new free intraperitoneal air to suggest bowel perforation. No evidence of intestinal ischemia such as pneumatosis or portal venous gas. 3. Very small volume free pelvic fluid. No drainable fluid collection. 4. A left adrenal adenoma correlating with prior imaging. Dictated by: Dictated on workstation # [id number] Dict: 12/13/18 0957 Trans: 12/13/18 1052 Interpreted by: JUAN BENITEZ MD Electronically signed by: JUAN BENITEZ MD 12/13/18 1052 A/P: Assessment: Gross leukocytosis of undetermined etiology - management per medical/surgical services Adb pain of undetermined etiology Ac on chronic resp failure due to ac exac of COPD and ac giron CHF Marked anemia of undetermined etiology, followed and treated by the Med S[facility], s/ p transfusion Ac NSTEMI, but card cath of 12/06/18 shows only minimal CAD and elevated LVEDP. Cath in 2008, following NSTEMI, had also not shown any significant CAD S/P non-syncopal fall on 12-05-18 resulting in multiple abrasions Chronic kidney disease, stage 3, with some contrast nephropathy post card cath of 12/06/18 TIA on Mar 08 2018 for which she was seen in the ED Severe chronic obstructive pulmonary disease due to prior tobaccoism. Tobaccoism that she quit in 2005. H/O cardiomyopathy with an ejection fraction of 30%, both ischemic and non- ischemic per cardiac catheterization from December 2008. Most recent echocardiogram of May 2017 showed LVEF 55-60%. Mild to mod AoR, TR, and MR. Diastolic dysfunction. Palpitations, probably related to known paroxysmal supraventricular tachycardia/ atrial fibrillation, currently controlled. The patient is considered intolerant to warfarin for several reasons, including episodes of marked epistaxis and hemoptysis, even without warfarin therapy. Also, she is prone to falls, given her generalized frail status. She refuses any oral anticoagulants; agrees only to aspirin for stroke prophylaxis Severe anxiety, currently controlled. Osteoporosis and degenerative joint disease Gastroesophageal reflux. H/O intermittent congestive heart failure due to diastolic and systolic dysfunction of the left ventricle, currently controlled. Hyperlipidemia, well controlled on therapy with simvastatin. H/o left cataract surgery. Mild ascending aortic aneurysm measuring 4.2 cm found incidentally on a CT scan or 07/10/[address] Christine Morales nodules being followed by Dr King Carotid u/s of 04/19/18: less than 40% ROSY, 50-60% LICA stenoses Diagnosis of hypothyroidism in April 2018, managed by Dr Paz, but she has been noncompliant with thyroid replacement therapy Plan: * Complex management due to multiple comorbidities * Elevated WBC of undetermined etiology - medical/surgical services managing * Adb pain of undetermined etiology * Multiple issues reviewed and discussed * Monitor labs closely KEE DAMON Dec 13, 2018 15:07
[2018-12-13] MEDS ORDERED: NEOSTIGMINE 1 MG/ML 5 ML SYRINGE IV NR (15:29)
[2018-12-13] MEDS ORDERED: NEOSTIGMINE 1 MG/ML 5 ML SYRINGE IV ONE (15:30)
--- NOTE | 2018-12-13 15:39 | NUR ---
Senior Sales Compensation Analyst follow up in ICU following her operation. Two sons present, state that they received good news and appreciate prayers. pt resting with eyes closed.
--- NOTE | 2018-12-13 16:40 | NUR ---
contacted dr. yanes regarding patient having bloody stool of 60cc. also notified of midline not working at this time. Received order for central line placement, Dr. Yanes said he would call dr. steele to place central line for patient.
[2018-12-13] MEDS: FAMOTIDINE 20 MG (PEPCID) TABLET PO SCH (16:41)
[2018-12-13 16:54] LABS: BASOPHILS # (AUTO) 0.1 10^3/uL (0.0-0.1); BASOPHILS % (AUTO) 0 % (0-10); EOSINOPHILS % (AUTO) 0 % (0-10); HEMATOCRIT 30 % (35-52); HEMOGLOBIN 10.5 G/DL (11.5-16.0); LYMPHOCYTES # (AUTO) 1.6 X 10^3 (1.0-4.0); LYMPHOCYTES % (AUTO) 4 % (12-44); MEAN CORPUSCULAR HEMOGLOBIN 30 PG (25-34); MEAN CORPUSCULAR HGB CONC 35 G/DL (32-36); MEAN CORPUSCULAR VOLUME 87 FL (80-99); MEAN PLATELET VOLUME 9.6 FL (7.4-10.4); MONOCYTES % (AUTO) 2 % (0-12); NEUTROPHILS # (AUTO) 41.7 X 10^3 (1.8-7.8); NEUTROPHILS % (AUTO) 94 % (42-75); PLATELET COUNT 180 10^3/uL (130-400); RED CELL DISTRIBUTION WIDTH 16.8 % (10.0-14.5)
[2018-12-13 16:57] LABS: WHITE BLOOD COUNT 44.3 10^3/uL (4.3-11.0)
[2018-12-13 17:16] LABS: ALBUMIN 2.5 GM/DL (3.2-4.5); BILIRUBIN,TOTAL 0.8 MG/DL (0.1-1.0); CALCIUM 7.7 MG/DL (8.5-10.1); CREATININE SERUM 1.55 MG/DL (0.60-1.30); MAGNESIUM 2.6 MG/DL (1.8-2.4); PHOSPHORUS 5.2 MG/DL (2.3-4.7); POTASSIUM 3.5 MMOL/L (3.6-5.0); TOTAL PROTEIN 4.3 GM/DL (6.4-8.2)
--- NOTE | 2018-12-13 17:48 | Progress Note (SOAP) ---
Subjective Date Seen by a Provider: Dec 13, 2018 Time Seen by a Provider: 12:00 Subjective/Events-last exam Fwup elevated troponin, COPD with acute exacerbation, UTI, fall with left arm skin tear and knee abrasions, anemia, CHF. Patient now in ICU due to possible small bowel obstruction and hypotensive. Her WBC count spiked to 55,000 this AM. Focused Exam Lactate Level 12/13/18 04:25: Lactic Acid Level 1.67 12/13/18 12:42: Lactic Acid Level 1.41 Objective Exam Vital Signs Date Time Temp Pulse Resp B/P (MAP) Pulse Ox O2 Delivery O2 Flow Rate FiO2 12/13/18 16:00 89 18 106/47 (66) 95 Nasal Cannula 4.00 12/13/18 16:00 High Flow N/C 4.00 12/13/18 15:00 90 22 79/39 (52) 94 Nasal Cannula 4.00 12/13/18 14:49 99 High Flow N/C 3.00 12/13/18 14:30 92 25 84/46 (59) 94 Nasal Cannula 4.00 12/13/18 14:15 96 27 83/47 (59) 96 Nasal Cannula 4.00 12/13/18 13:10 89 12/13/18 13:00 89 30 104/52 (69) 95 Nasal Cannula 4.00 12/13/18 12:25 94 29 110/46 (67) 91 Nasal Cannula 4.00 12/13/18 12:04 High Flow N/C 3.00 12/13/18 11:30 88 29 64/34 (44) 99 Nasal Cannula 3.00 12/13/18 11:15 82 24 116/62 (80) 98 Nasal Cannula 3.00 12/13/18 11:00 82 23 118/54 (75) 99 Nasal Cannula 3.00 12/13/18 10:45 86 29 99/53 (68) 98 Nasal Cannula 3.00 12/13/18 10:15 84 21 59/21 (34) 98 Nasal Cannula 3.00 12/13/18 10:00 86 26 107/62 (77) 99 Nasal Cannula 3.00 12/13/18 10:00 97.5 100 Nasal Cannula 12/13/18 09:51 87 12/13/18 09:21 96.4 12/13/18 09:00 High Flow N/C 3.00 12/13/18 08:00 96.4 90 18 89/47 (61) 98 High Flow N/C 3.00 12/13/18 07:00 85 12/13/18 06:56 91 High Flow N/C 3.00 12/13/18 04:28 97.4 87 22 119/56 (77) 97 High Flow N/C 3.00 12/13/18 03:33 97 High Flow N/C 3.00 12/13/18 01:00 87 12/13/18 00:00 97.0 89 20 125/58 (80) 95 High Flow N/C 3.00 12/12/18 21:40 97.4 87 20 149/65 Nasal Cannula 3.00 12/12/18 21:20 95 High Flow N/C 3.00 12/12/18 21:00 High Flow N/C 3.00 12/12/18 20:00 98.4 82 18 142/72 (95) 98 High Flow N/C 3.00 12/12/18 19:07 97.4 87 22 115/58 96 High Flow N/C 3.00 12/12/18 19:00 88 12/12/18 18:45 97.2 95 20 97/57 98 High Flow N/C 3.00 12/12/18 18:11 98.4 96 22 145/65 99 High Flow N/C 3.00 I & O 12/13/18 07:00 Intake Total 930 ml Output Total 1725 ml Balance -795 ml Capillary Refill : Less Than 3 SecondsLess Than 3 Seconds General Appearance: Moderate Distress (due to pain) Neck: Supple Respiratory: Decreased Breath Sounds, Wheezing Cardiovascular: Regular Rate, Rhythm, Systolic Murmur Gastrointestinal: abnormal bowel sounds, distended, tenderness Extremity: Non Tender, No Calf Tenderness, No Pedal Edema Neurologic/Psychiatric: Alert, Oriented x3 Skin: Ecchymosis (arms and legs), Pallor Results Lab Laboratory Tests 12/13/18 03:10: White Blood Count 55.3*H, Red Blood Count 3.89L, Hemoglobin 11.8#, Hematocrit 33L, Mean Corpuscular Volume 86, Mean Corpuscular Hemoglobin 30, Mean Corpuscular Hemoglobin Concent 35, Red Cell Distribution Width 15.9H, Platelet Count 218, Mean Platelet Volume 9.5, Neutrophils (%) (Auto) 91H, Lymphocytes (% ) (Auto) 5L, Monocytes (%) (Auto) 5, Eosinophils (%) (Auto) 0, Basophils (%) ( Auto) 0, Neutrophils # (Auto) 50.2H, Lymphocytes # (Auto) 2.5, Monocytes # (Auto ) 2.5H, Eosinophils # (Auto) 0.0, Basophils # (Auto) 0.1, Neutrophils % (Manual ) 85, Lymphocytes % (Manual) 2, Monocytes % (Manual) 8, Metamyelocytes % 2, Band Neutrophils 3, Polychromasia SLIGHT, Basophilic Stippling SLIGHT, Spherocytes MODERATE, Sodium Level 141, Potassium Level 3.5L, Chloride Level 100 , Carbon Dioxide Level 25, Anion Gap 16H, Blood Urea Nitrogen 114#*H, Creatinine 1.59H, Estimat Glomerular Filtration Rate 31, BUN/Creatinine Ratio 72 , Glucose Level 179H, Calcium Level 8.2L, Phosphorus Level 4.8H, Magnesium Level 2.8H, B-Type Natriuretic Peptide 809.2H 12/13/18 04:25: Lactic Acid Level 1.67 12/13/18 04:50: Urine Color YELLOW, Urine Clarity CLEAR, Urine pH 5, Urine Specific [place] 1.010L, Urine Protein NEGATIVE, Urine Glucose (UA) NEGATIVE, Urine Ketones NEGATIVE, Urine Nitrite NEGATIVE, Urine Bilirubin NEGATIVE, Urine Urobilinogen NORMAL, Urine Leukocyte Esterase 1+H, Urine RBC (Auto) NEGATIVE, Urine RBC NONE , Urine WBC NONE, Urine Squamous Epithelial Cells 2-5, Urine Crystals NONE, Urine Bacteria NEGATIVE, Urine Casts PRESENT, Urine Hyaline Casts 10-25H, Urine Mucus NEGATIVE, Urine Culture Indicated NO 12/13/18 12:36: Lab Scanned Report Transfusion Reaction Form 12/13/18 12:42: White Blood Count 45.8*H, Red Blood Count 3.48L, Hemoglobin 10.5L, Hematocrit 30L, Mean Corpuscular Volume 86, Mean Corpuscular Hemoglobin 30, Mean Corpuscular Hemoglobin Concent 35, Red Cell Distribution Width 16.4H, Platelet Count 190, Mean Platelet Volume 9.7, Neutrophils (%) (Auto) 93H, Lymphocytes (% ) (Auto) 5L, Monocytes (%) (Auto) 3, Eosinophils (%) (Auto) 0, Basophils (%) ( Auto) 0, Neutrophils # (Auto) 42.4H, Lymphocytes # (Auto) 2.1, Monocytes # (Auto ) 1.2H, Eosinophils # (Auto) 0.0, Basophils # (Auto) 0.1, Sodium Level 141, Potassium Level 3.5L, Chloride Level 101, Carbon Dioxide Level 26, Anion Gap 14 , Blood Urea Nitrogen 107*H, Creatinine 1.54H, Estimat Glomerular Filtration Rate 32, BUN/Creatinine Ratio 69, Glucose Level 139H, Lactic Acid Level 1.41, Calcium Level 7.9L, Corrected Calcium 9.1, Phosphorus Level 4.8H, Magnesium Level 2.6H, Total Bilirubin 0.6, Aspartate Amino Transf (AST/SGOT) 43H, Alanine Aminotransferase (ALT/SGPT) 24, Alkaline Phosphatase 32L, Total Protein 4.2L, Albumin 2.5L 12/13/18 16:40: White Blood Count 44.3*H, Red Blood Count 3.48L, Hemoglobin 10.5L, Hematocrit 30L, Mean Corpuscular Volume 87, Mean Corpuscular Hemoglobin 30, Mean Corpuscular Hemoglobin Concent 35, Red Cell Distribution Width 16.8H, Platelet Count 180, Mean Platelet Volume 9.6, Neutrophils (%) (Auto) 94H, Lymphocytes (% ) (Auto) 4L, Monocytes (%) (Auto) 2, Eosinophils (%) (Auto) 0, Basophils (%) ( Auto) 0, Neutrophils # (Auto) 41.7H, Lymphocytes # (Auto) 1.6, Monocytes # (Auto ) 1.0, Eosinophils # (Auto) 0.0, Basophils # (Auto) 0.1, Sodium Level 143, Potassium Level 3.5L, Chloride Level 104, Carbon Dioxide Level 25, Anion Gap 14 , Blood Urea Nitrogen 102*H, Creatinine 1.55H, Estimat Glomerular Filtration Rate 32, BUN/Creatinine Ratio 66, Glucose Level 123H, Calcium Level 7.7L, Corrected Calcium 8.9, Phosphorus Level 5.2H, Magnesium Level 2.6H, Total Bilirubin 0.8, Aspartate Amino Transf (AST/SGOT) 50H, Alanine Aminotransferase ( ALT/SGPT) 25, Alkaline Phosphatase 40, Total Protein 4.3L, Albumin 2.5L, B-Type Natriuretic Peptide 656.3H Microbiology 1/28/19 Urine Culture - Final, Complete See Report Assessment/Plan Assessment/Plan Assess & Plan/Chief Complaint 1. Elevated Troponin with normal cardiac cath--likely secondary to acute hypoxia 2. Acute Exacerbation of COPD--continue solumedrol but wean dose as patient is unable to take oral prednisone and oral methylprednisilone is not available on pharmacy formulary, on oxygen and SVNS 3. RLL Pneumonia--cont Maxipime 4. Fall with left wrist skin tear and left knee contusion--wounds dressed 5. Thrush--continue nystatin 6. Acute Renal Insufficiency--hydrate and monitor Cr 7. Acute Respiratory Distress due to COPD and CHF--down to NC 8. Acute on Chronic Diastolic CHF--on IV lasix and diuresing well 9. Acute on Chronic Anemia--S/P transfusion 10. Acute Abdominal Pain--completing gastrograffin study to rule out bowel obstruction--family aware of grave prognosis Clinical Quality Measures Admission Status Admission Dx 1. Acute non STEMI--admit to cardiac in ICU on Brilinta and Heparin with cardiac catheterization by cardiology 2. Hypertension--resume home meds 3. COPD--oxygen, nebulizer treatments 4. UTI--started on Bactrim 5. Chronic Anemia--monitor H/H 6. Left wrist skin tear and abrasions from fall--dressed and will monitor for bleeding with blood thinners DVT/VTE Risk/Contraindication: Risk Factor Score Per Nursin RFS Level Per Nursing on Admit: 3=High MELODY MCGEE DO Dec 13, 2018 17:48
[2018-12-13] MEDS ORDERED: 1/2 NS W/KCL 20 MEQ/L 1,000 ML IV SCH (18:00)
--- NOTE | 2018-12-13 18:00 | NUR ---
dr. stanford in room at this time, placing central line to R IJ. Consent verified, time out preformed with this nurse et dr. stanford. Central line placed et stat cxr ordered.
--- NOTE | 2018-12-13 18:48 | Diagnostic Imaging Report ---
EXAMINATION: Portable semi-erect AP chest at 06:33 p.m. INDICATION: Central line placement. FINDINGS: In the interval since the exam performed earlier today at 05:05 a.m., a central venous catheter has been inserted through the internal jugular vein on the right. The tip of the catheter overlies the mid portion of the superior vena cava. There is no sign of pneumothorax and the overall appearance of the chest does not appear to have changed significantly otherwise. There does appear to be a skin fold overlying the lateral aspect of the left mid lung. IMPRESSION: There has been interval insertion of a central venous catheter on the right without apparent complication. The overall appearance of the chest is otherwise stable. Dictated by: Dictated on workstation # [id number]
--- NOTE | 2018-12-13 19:05 | Progress Note-Cardiology ---
Cardiology SOAP Progress Note Subjective: Short of breath at the time of this exam. Does not report symptoms Abd discomfort and distention necessitated transfer to ICU this am Objective: I&O/Vital Signs 12/13/18 12/13/18 12/13/18 12/13/18 08:00 09:00 09:21 09:51 Temp 96.4 96.4 Pulse 90 87 Resp 18 B/P (MAP) 89/47 (61) Pulse Ox 98 O2 Delivery High Flow N/C High Flow N/C O2 Flow Rate 3.00 3.00 12/13/18 12/13/18 12/13/18 12/13/18 10:00 10:00 10:15 10:45 Temp 97.5 Pulse 86 84 86 Resp 26 21 29 B/P (MAP) 107/62 (77) 59/21 (34) 99/53 (68) Pulse Ox 100 99 98 98 O2 Delivery Nasal Cannula Nasal Cannula Nasal Cannula Nasal Cannula O2 Flow Rate 3.00 3.00 3.00 12/13/18 12/13/18 12/13/18 12/13/18 11:00 11:15 11:30 12:04 Pulse 82 82 88 Resp 23 24 29 B/P (MAP) 118/54 (75) 116/62 (80) 64/34 (44) Pulse Ox 99 98 99 O2 Delivery Nasal Cannula Nasal Cannula Nasal Cannula High Flow N/C O2 Flow Rate 3.00 3.00 3.00 3.00 12/13/18 12/13/18 12/13/18 12/13/18 12:25 13:00 13:10 14:15 Pulse 94 89 89 96 Resp 29 30 27 B/P (MAP) 110/46 (67) 104/52 (69) 83/47 (59) Pulse Ox 91 95 96 O2 Delivery Nasal Cannula Nasal Cannula Nasal Cannula O2 Flow Rate 4.00 4.00 4.00 12/13/18 12/13/18 12/13/18 12/13/18 14:30 14:49 15:00 16:00 Pulse 92 90 Resp 25 22 B/P (MAP) 84/46 (59) 79/39 (52) Pulse Ox 94 99 94 O2 Delivery Nasal Cannula High Flow N/C Nasal Cannula High Flow N/C O2 Flow Rate 4.00 3.00 4.00 4.00 2/03/2612/13/18 12/13/18 16:00 17:00 18:00 Pulse 89 90 91 Resp 18 31 36 B/P (MAP) 106/47 (66) 87/54 (65) 99/57 (71) Pulse Ox 95 99 99 O2 Delivery Nasal Cannula Nasal Cannula Nasal Cannula O2 Flow Rate 4.00 4.00 4.00 12/13/18 00:00 Intake Total 780 ml Output Total 1300 ml Balance -520 ml Weight (Pounds): 121 Weight (Ounces): 8.0 Weight (Calculated Kilograms): [id number] Constitutional: AAO x 3, well-developed, well-nourished Respiratory: chest expansion is symmetric, chest is bilaterally symmetric, rhonchi (scattered), other (prolonged expiratory phase) Cardiovascular: No JVD; tachycardia, S1 and S2, systolic murmur Extremities: no lower extremity edema bilateral Neurologic/Psychiatric: grossly intact, power is 5/5 both on sides Skin: No rash, No ulcerations; other (multiple abrasions to knees and arms which are under dressings not removed; multiple bruises to arms and legs bilat) Results/Procedures: Labs Laboratory Tests 12/13/18 03:10: White Blood Count 55.3*H, Red Blood Count 3.89L, Hemoglobin 11.8#, Hematocrit 33L, Mean Corpuscular Volume 86, Mean Corpuscular Hemoglobin 30, Mean Corpuscular Hemoglobin Concent 35, Red Cell Distribution Width 15.9H, Platelet Count 218, Mean Platelet Volume 9.5, Neutrophils (%) (Auto) 91H, Lymphocytes (% ) (Auto) 5L, Monocytes (%) (Auto) 5, Eosinophils (%) (Auto) 0, Basophils (%) ( Auto) 0, Neutrophils # (Auto) 50.2H, Lymphocytes # (Auto) 2.5, Monocytes # (Auto ) 2.5H, Eosinophils # (Auto) 0.0, Basophils # (Auto) 0.1, Neutrophils % (Manual ) 85, Lymphocytes % (Manual) 2, Monocytes % (Manual) 8, Metamyelocytes % 2, Band Neutrophils 3, Polychromasia SLIGHT, Basophilic Stippling SLIGHT, Spherocytes MODERATE, Sodium Level 141, Potassium Level 3.5L, Chloride Level 100 , Carbon Dioxide Level 25, Anion Gap 16H, Blood Urea Nitrogen 114#*H, Creatinine 1.59H, Estimat Glomerular Filtration Rate 31, BUN/Creatinine Ratio 72 , Glucose Level 179H, Calcium Level 8.2L, Phosphorus Level 4.8H, Magnesium Level 2.8H, B-Type Natriuretic Peptide 809.2H 12/13/18 04:25: Lactic Acid Level 1.67 12/13/18 04:50: Urine Color YELLOW, Urine Clarity CLEAR, Urine pH 5, Urine Specific Slemp 1.010L, Urine Protein NEGATIVE, Urine Glucose (UA) NEGATIVE, Urine Ketones NEGATIVE, Urine Nitrite NEGATIVE, Urine Bilirubin NEGATIVE, Urine Urobilinogen NORMAL, Urine Leukocyte Esterase 1+H, Urine RBC (Auto) NEGATIVE, Urine RBC NONE , Urine WBC NONE, Urine Squamous Epithelial Cells 2-5, Urine Crystals NONE, Urine Bacteria NEGATIVE, Urine Casts PRESENT, Urine Hyaline Casts 10-25H, Urine Mucus NEGATIVE, Urine Culture Indicated NO 12/13/18 12:36: Lab Scanned Report Transfusion Reaction Form 12/13/18 12:42: White Blood Count 45.8*H, Red Blood Count 3.48L, Hemoglobin 10.5L, Hematocrit 30L, Mean Corpuscular Volume 86, Mean Corpuscular Hemoglobin 30, Mean Corpuscular Hemoglobin Concent 35, Red Cell Distribution Width 16.4H, Platelet Count 190, Mean Platelet Volume 9.7, Neutrophils (%) (Auto) 93H, Lymphocytes (% ) (Auto) 5L, Monocytes (%) (Auto) 3, Eosinophils (%) (Auto) 0, Basophils (%) ( Auto) 0, Neutrophils # (Auto) 42.4H, Lymphocytes # (Auto) 2.1, Monocytes # (Auto ) 1.2H, Eosinophils # (Auto) 0.0, Basophils # (Auto) 0.1, Sodium Level 141, Potassium Level 3.5L, Chloride Level 101, Carbon Dioxide Level 26, Anion Gap 14 , Blood Urea Nitrogen 107*H, Creatinine 1.54H, Estimat Glomerular Filtration Rate 32, BUN/Creatinine Ratio 69, Glucose Level 139H, Lactic Acid Level 1.41, Calcium Level 7.9L, Corrected Calcium 9.1, Phosphorus Level 4.8H, Magnesium Level 2.6H, Total Bilirubin 0.6, Aspartate Amino Transf (AST/SGOT) 43H, Alanine Aminotransferase (ALT/SGPT) 24, Alkaline Phosphatase 32L, Total Protein 4.2L, Albumin 2.5L 12/13/18 16:40: White Blood Count 44.3*H, Red Blood Count 3.48L, Hemoglobin 10.5L, Hematocrit 30L, Mean Corpuscular Volume 87, Mean Corpuscular Hemoglobin 30, Mean Corpuscular Hemoglobin Concent 35, Red Cell Distribution Width 16.8H, Platelet Count 180, Mean Platelet Volume 9.6, Neutrophils (%) (Auto) 94H, Lymphocytes (% ) (Auto) 4L, Monocytes (%) (Auto) 2, Eosinophils (%) (Auto) 0, Basophils (%) ( Auto) 0, Neutrophils # (Auto) 41.7H, Lymphocytes # (Auto) 1.6, Monocytes # (Auto ) 1.0, Eosinophils # (Auto) 0.0, Basophils # (Auto) 0.1, Sodium Level 143, Potassium Level 3.5L, Chloride Level 104, Carbon Dioxide Level 25, Anion Gap 14 , Blood Urea Nitrogen 102*H, Creatinine 1.55H, Estimat Glomerular Filtration Rate 32, BUN/Creatinine Ratio 66, Glucose Level 123H, Calcium Level 7.7L, Corrected Calcium 8.9, Phosphorus Level 5.2H, Magnesium Level 2.6H, Total Bilirubin 0.8, Aspartate Amino Transf (AST/SGOT) 50H, Alanine Aminotransferase ( ALT/SGPT) 25, Alkaline Phosphatase 40, Total Protein 4.3L, Albumin 2.5L, B-Type Natriuretic Peptide 656.3H Microbiology 12/05/18 Urine Culture - Final, Complete See Report Laboratory Tests 12/12/18 04:35 12/13/18 03:10 12/13/18 12:42 12/13/18 16:40 A/P: Assessment: Acute abdomen/bowel obstruction, managed by [facility] Gross leukocytosis of undetermined etiology - management per medical/surgical services Ac on chronic resp failure due to ac exac of COPD and ac giron CHF Marked anemia of undetermined etiology, followed and treated by the Med S[facility], s/ p transfusion Ac NSTEMI, but card cath of 12/06/18 shows only minimal CAD and elevated LVEDP. Cath in 2008, following NSTEMI, had also not shown any significant CAD S/P non-syncopal fall on 12-05-18 resulting in multiple abrasions Chronic kidney disease, stage 3, with some contrast nephropathy post card cath of 12/06/18 TIA on Mar 08 2018 for which she was seen in the ED Severe chronic obstructive pulmonary disease due to prior tobaccoism. Tobaccoism that she quit in 2005. H/O cardiomyopathy with an ejection fraction of 30%, both ischemic and non- ischemic per cardiac catheterization from December 2008. Most recent echocardiogram of May 2017 showed LVEF 55-60%. Mild to mod AoR, TR, and MR. Diastolic dysfunction. Palpitations, probably related to known paroxysmal supraventricular tachycardia/ atrial fibrillation, currently controlled. The patient is considered intolerant to warfarin for several reasons, including episodes of marked epistaxis and hemoptysis, even without warfarin therapy. Also, she is prone to falls, given her generalized frail status. She refuses any oral anticoagulants; agrees only to aspirin for stroke prophylaxis Severe anxiety, currently controlled. Osteoporosis and degenerative joint disease Gastroesophageal reflux. H/O intermittent congestive heart failure due to diastolic and systolic dysfunction of the left ventricle, currently controlled. Hyperlipidemia, well controlled on therapy with simvastatin. H/o left cataract surgery. Mild ascending aortic aneurysm measuring 4.2 cm found incidentally on a CT scan or 07/10/[address] King [place] nodules being followed by Dr King Carotid u/s of 04/19/18: less than 40% ROSY, 50-60% LICA stenoses Diagnosis of hypothyroidism in April 2018, managed by Dr Pza, but she has been noncompliant with thyroid replacement therapy Plan: * Complex management due to multiple comorbidities * Monitor labs closely * Prognosis guarded CASSIE ARANA MD FACP [facility] Dec 13, 2018 19:05
[2018-12-13] MEDS ORDERED: NS (IVPB) 250 ML ONE (19:35)
[2018-12-13] MEDS ORDERED: NOREPINEPHRINE 4 MG/4 ML (LEVOPHED) AMP IV ONE (19:35)
--- NOTE | 2018-12-13 19:35 | NUR ---
1934- This RN called EICU regarding pt low BP, distended and tender abdomen, and patient pain. Orders received to start Levophed gtt, Albumin 5% 500 mL bolus, and labs to be drawn upon completion of bolus. 2055- Orders received to transfuse 1 unit of PRBC due to drop in Hgb. 2241- Called Dr. Yates to update on pt status, Dr. Yates coming in to perform procedure. 3- Called pt's sons to notify of pt condition, they are on their way to meet with Dr. Yates prior to procedure. 0030- Consent obtained. Pt taken to OR on 12/14/18 at 0034 accompanied by anesthesia.
[2018-12-13] MEDS ORDERED: ALBUMIN 5% 12.5 GM/250 ML 500 ML IV ONE (19:39)
[2018-12-13] MEDS: ALBUMIN 5% 12.5 GM/250 ML 250 ML IV SCH ×3 (19:45→21:15)
[2018-12-13] MEDS: NOREPINEPHRINE 4 MG in NS (IVPB) 250 ML IV SCH (19:46)
--- NOTE | 2018-12-13 19:58 | NUR ---
received order ok to use central line from dr. stanford at this time.
[2018-12-13 20:29] LABS: HEMOGLOBIN 8.9 G/DL (11.5-16.0)
[2018-12-13] MEDS ORDERED: NS IV 1000 ML 1,000 ML IV SCH (20:45)
--- NOTE | 2018-12-13 20:58 | Consultation ---
History of Present Illness History of Present Illness Patient Consulted On(vivian/time) 12/13/18 20:53 Date Seen by Provider: Dec 13, 2018 Time Seen by Provider: 18:30 Reason for Visit: fall at a parking lot leading to laceration and elevated troponin History of Present Illness consult requested by Dr. MCGEE for central line placement due to hypotension. Patient is a 78-year-old female who was transferred to the ICU today do to severe abdominal pain. Patient had CT scan abdomen and pelvis and barium enema which did not demonstrate any significant obstruction and no signs of perforation. She has significant colonic stool load through majority of colon. Patient white count increased to 55,000. Patient having significant abdominal pain which is unchanged from earlier today. Rated at 10 out of 10. Patient has sensation of having a bathroom. Patient systolic blood pressure has decreased and I then asked for central line placement. Patient has had previous central line she states. Allergies and Home Medications Allergies Coded Allergies: diphenhydramine HCl (Unverified Allergy, Severe, anaphalaxis, 09/10/14) Pt states this happened several yrs ago and that she had almost forgotten about it because she has avoided t for so long. fentanyl (Unverified Allergy, Mild, 09/10/14) PT DOES NOT WANT TO TAKE--SHE STAES IT MADE HER COPD WORSE midazolam (Unverified Allergy, Mild, PT TAKE LIBRIUM AT HOME, 09/10/14) PT DOESN'T WANT TO TAKE--SHE STATED IT MADE HER COPD OWRSE. Beta-Blockers (Beta-Adrenergic Bloc (Verified Allergy, Unknown, 09/10/14) Cephalosporins (Verified Allergy, Unknown, HAS RECEIVED CEFEPIME IN PAST W /O PROBLEM, 09/14/14) Penicillins (Verified Allergy, Unknown, HAS REC AZACTAM IN PAST WITHOUT PROBLEMS, 09/10/14) risedronic acid (Verified Allergy, Unknown, 09/10/14) prednisone (Unverified Adverse Reaction, Intermediate, Large doses cause SOA, 09/10/14) meperidine (Unverified Adverse Reaction, Mild, NAUSEA, 09/10/14) propofol (Unverified Adverse Reaction, Mild, 09/10/14) PT DOES NOT WANT TO TAKE--SHE STATES IT MADE HER COPD WORSE erythromycin base (Verified Adverse Reaction, Unknown, MAKES PATIENT NAUSEADED, 09/10/14) Home Medications Albuterol Sulfate 2.5 Mg/3 Ml Vial.neb, 2.5 MG NEB Q3H PRN for SHORTNESS OF BREATH, (Reported) Albuterol Sulfate 18 Gm Hfa.aer.ad, 2 PUFF INH Q4H PRN for SHORTNESS OF BREATH, (Reported) Aspirin 81 Mg Tablet.dr, 81 MG PO DAILY, (Reported) Carboxymethylcellulos/Glycerin 15 Ml Drops, 1 DROP OU TID PRN for DRY EYES, ( Reported) Chlordiazepoxide HCl 25 Mg Capsule, 25 MG PO BID, (Reported) Digoxin 125 Mcg Tablet, 62.5 MG PO DAILY, (Reported) TAKES 1/2 OF A (125 MCG) TABLET Diltiazem HCl 120 Mg Cap.er.24h, 120 MG PO DAILY, (Reported) Famotidine 20 Mg Tablet, 20 MG PO BID PRN for HEARTBURN, (Reported) Fluticasone/Salmeterol 12 Gm Hfa.aer.ad, 2 PUFF INH BID, (Reported) Furosemide 40 Mg Tablet, 20 MG PO DAILY, (Reported) TAKES 1/2 (40MG) TABLET Hydroxyzine HCl 10 Mg Tablet, 10 MG PO HS, (Reported) Losartan Potassium 50 Mg Tablet, 50 MG PO BID, (Reported) Mirtazapine 30 Mg Tablet, 30 MG PO HS, (Reported) Potassium Chloride 10 Meq Tablet.er, 10 MEQ PO DAILY, (Reported) Sennosides/Docusate Sodium 1 Each Tablet, 2 TAB PO DAILY PRN for CONSTIPATION- 6TH LINE, (Reported) Simvastatin 40 Mg Tablet, 40 MG PO HS, (Reported) Tiotropium [place] 1 Inh Aerp, 1 CAP IH DAILY, (Reported) Patient Home Medication List Home Medication List Reviewed: Yes Past Hpqfrnr-Otnsbg-Agzari Hx Patient Social History Alcohol Use: Denies Use Recreational Drug Use: No Smoking Status: Former Smoker Former Smoker, Quit: Apr 12, 2006 Type Used: Cigarettes 2nd Hand Smoke Exposure: No Recent Foreign Travel: No Contact w/Someone Who Travel: No Recent Infectious Disease Expo: No Recent Hopitalizations: No Immunizations Up To Date Tetanus Booster (TDap): More than 5yrs PED Vaccines UTD: Yes Date of Pneumonia Vaccine: Jul 09, 2012 Date of Influenza Vaccine: Aug 08, 2018 Seasonal Allergies Seasonal Allergies: Yes Surgeries History of Surgeries: Yes (thoracotomy) Surgeries: Appendectomy, Gallbladder, Tonsillectomy Respiratory History of Respiratory Disorde: Yes (HOME O2 AT 3L) Respiratory Disorders: Pneumonia, COPD, Emphysema Cardiovascular History of Cardiac Disorders: Yes (ISCHEMIC CARDIOMYOPATHY) Cardiac Disorders: Atrial Fibrillation, Hypertension Neurological History of Neurological Disord: No Reproductive System Hx Reproductive Disorders: No Sexually Transmitted Disease: No HIV/AIDS: No Female Reproductive Disorders: Denies Genitourinary History of Genitourinary Disor: No Gastrointestinal History of Gastrointestinal Di: Yes Gastrointestinal Disorders: Gastroesophageal Reflux, Diverticulosis, Hemorrhoids, Hiatal Hernia, Gall Bladder Disease Musculoskeletal History of Musculoskeletal Dis: Yes Musculoskeletal Disorders: Arthritis Endocrine History of Endocrine Disorders: No HEENT History of HEENT Disorders: Yes (cataract removal) HEENT Disorders: Cataract Loss of Vision: Denies Hearing Impairment: Hard of Hearing Cancer History of Cancer: No Psychosocial History of Psychiatric Problem: Yes Behavioral Health Disorders: Anxiety, PTSD Integumentary History of Skin or Integumenta: No Blood Transfusions History of Blood Disorders: No Adverse Reaction to a Blood Tr: No Family Medical History Significant Family History: No Pertinent Family Hx Family Medial History: Alcoholism SONS Asthma DAUGHTER SONS Cardiovascular disease 19 MOTHER Cataracts 19 MOTHER Deafness or hearing loss G8 SISTER Diabetes mellitus SONS Gastroenteritis SONS Headache disorder SONS Hypertension SONS Myocardial infarction 19 FATHER Psychosocial problem 19 MOTHER No Family History of: AIDS Abdominal aortic aneurysm Joey's disease Alzheimer's disease Aphasia Arthritis Cancer of mouth Colon cancer Completed stroke Congenital disease Congenital heart disease Coronary thrombosis Cystic fibrosis Dementia Drug abuse Dysphasia Fibrocystic disease of breast Glaucoma Hypercholesterolemia Infertility Kidney disease Neoplasm Not obtainable due to adoption Osteoporosis Parkinson's disease Prostate cancer Respiratory disorder Seizure disorder Severe allergy Thyroid disease Tuberculosis Visual disorder Review of Systems-General Constitutional: no symptoms reported EENTM: no symptoms reported Respiratory: no symptoms reported Cardiovascular: no symptoms reported Gastrointestinal: see HPI Genitourinary: no symptoms reported Musculoskeletal: no symptoms reported Skin: change in color (bruising on extremities) Psychiatric/Neurological: No Symptoms Reported Physical Exam-General Problems Physical Exam Vital Signs Vital Signs - First Documented 12/07/18 12/08/18 03:32 06:25 Temp 97.7 FiO2 40 Capillary Refill : Less Than 3 SecondsLess Than 3 Seconds General Appearance: no apparent distress HEENT: PERRL/EOMI Neck: supple Respiratory: no respiratory distress, no accessory muscle use Cardiovascular: regular rate, rhythm Gastrointestinal: tenderness (Diffuse, positive rebound) Rectal: deferred Back: no CVA tenderness Extremities: other (bruising on extremities) Neurologic/Psychiatric: no motor/sensory deficits, alert, normal mood/affect Skin: ecchymosis Lymphatic: no adenopathy Data Review Labs Laboratory Tests 12/13/18 03:10: White Blood Count 55.3*H, Red Blood Count 3.89L, Hemoglobin 11.8#, Hematocrit 33L, Mean Corpuscular Volume 86, Mean Corpuscular Hemoglobin 30, Mean Corpuscular Hemoglobin Concent 35, Red Cell Distribution Width 15.9H, Platelet Count 218, Mean Platelet Volume 9.5, Neutrophils (%) (Auto) 91H, Lymphocytes (% ) (Auto) 5L, Monocytes (%) (Auto) 5, Eosinophils (%) (Auto) 0, Basophils (%) ( Auto) 0, Neutrophils # (Auto) 50.2H, Lymphocytes # (Auto) 2.5, Monocytes # (Auto ) 2.5H, Eosinophils # (Auto) 0.0, Basophils # (Auto) 0.1, Neutrophils % (Manual ) 85, Lymphocytes % (Manual) 2, Monocytes % (Manual) 8, Metamyelocytes % 2, Band Neutrophils 3, Polychromasia SLIGHT, Basophilic Stippling SLIGHT, Spherocytes MODERATE, Sodium Level 141, Potassium Level 3.5L, Chloride Level 100 , Carbon Dioxide Level 25, Anion Gap 16H, Blood Urea Nitrogen 114#*H, Creatinine 1.59H, Estimat Glomerular Filtration Rate 31, BUN/Creatinine Ratio 72 , Glucose Level 179H, Calcium Level 8.2L, Phosphorus Level 4.8H, Magnesium Level 2.8H, B-Type Natriuretic Peptide 809.2H 12/13/18 04:25: Lactic Acid Level 1.67 12/13/18 04:50: Urine Color YELLOW, Urine Clarity CLEAR, Urine pH 5, Urine Specific [place] 1.010L, Urine Protein NEGATIVE, Urine Glucose (UA) NEGATIVE, Urine Ketones NEGATIVE, Urine Nitrite NEGATIVE, Urine Bilirubin NEGATIVE, Urine Urobilinogen NORMAL, Urine Leukocyte Esterase 1+H, Urine RBC (Auto) NEGATIVE, Urine RBC NONE , Urine WBC NONE, Urine Squamous Epithelial Cells 2-5, Urine Crystals NONE, Urine Bacteria NEGATIVE, Urine Casts PRESENT, Urine Hyaline Casts 10-25H, Urine Mucus NEGATIVE, Urine Culture Indicated NO 12/13/18 12:36: Lab Scanned Report Transfusion Reaction Form 12/13/18 12:42: White Blood Count 45.8*H, Red Blood Count 3.48L, Hemoglobin 10.5L, Hematocrit 30L, Mean Corpuscular Volume 86, Mean Corpuscular Hemoglobin 30, Mean Corpuscular Hemoglobin Concent 35, Red Cell Distribution Width 16.4H, Platelet Count 190, Mean Platelet Volume 9.7, Neutrophils (%) (Auto) 93H, Lymphocytes (% ) (Auto) 5L, Monocytes (%) (Auto) 3, Eosinophils (%) (Auto) 0, Basophils (%) ( Auto) 0, Neutrophils # (Auto) 42.4H, Lymphocytes # (Auto) 2.1, Monocytes # (Auto ) 1.2H, Eosinophils # (Auto) 0.0, Basophils # (Auto) 0.1, Sodium Level 141, Potassium Level 3.5L, Chloride Level 101, Carbon Dioxide Level 26, Anion Gap 14 , Blood Urea Nitrogen 107*H, Creatinine 1.54H, Estimat Glomerular Filtration Rate 32, BUN/Creatinine Ratio 69, Glucose Level 139H, Lactic Acid Level 1.41, Calcium Level 7.9L, Corrected Calcium 9.1, Phosphorus Level 4.8H, Magnesium Level 2.6H, Total Bilirubin 0.6, Aspartate Amino Transf (AST/SGOT) 43H, Alanine Aminotransferase (ALT/SGPT) 24, Alkaline Phosphatase 32L, Total Protein 4.2L, Albumin 2.5L 12/13/18 16:40: White Blood Count 44.3*H, Red Blood Count 3.48L, Hemoglobin 10.5L, Hematocrit 30L, Mean Corpuscular Volume 87, Mean Corpuscular Hemoglobin 30, Mean Corpuscular Hemoglobin Concent 35, Red Cell Distribution Width 16.8H, Platelet Count 180, Mean Platelet Volume 9.6, Neutrophils (%) (Auto) 94H, Lymphocytes (% ) (Auto) 4L, Monocytes (%) (Auto) 2, Eosinophils (%) (Auto) 0, Basophils (%) ( Auto) 0, Neutrophils # (Auto) 41.7H, Lymphocytes # (Auto) 1.6, Monocytes # (Auto ) 1.0, Eosinophils # (Auto) 0.0, Basophils # (Auto) 0.1, Sodium Level 143, Potassium Level 3.5L, Chloride Level 104, Carbon Dioxide Level 25, Anion Gap 14 , Blood Urea Nitrogen 102*H, Creatinine 1.55H, Estimat Glomerular Filtration Rate 32, BUN/Creatinine Ratio 66, Glucose Level 123H, Calcium Level 7.7L, Corrected Calcium 8.9, Phosphorus Level 5.2H, Magnesium Level 2.6H, Total Bilirubin 0.8, Aspartate Amino Transf (AST/SGOT) 50H, Alanine Aminotransferase ( ALT/SGPT) 25, Alkaline Phosphatase 40, Total Protein 4.3L, Albumin 2.5L, B-Type Natriuretic Peptide 656.3H 12/13/18 20:20: Hemoglobin 8.9L, Hematocrit 26L, Lactic Acid Level 0.95 Microbiology 12/05/18 Urine Culture - Final, Complete See Report Assessment/Plan Assessment/Plan Assessment/Plan Acute abdominal pain diffuse with no signs of perforation or ischemia. Patient significant tender but has significant stool load through majority of colon. Has already had evaluation by CT and barium enema acute exacerbation COPD RLL pneumonia Hypotension Patient explained risks and benefits of central line placement. Consent signed and on chart. Will place central line and sign off. Call if needed. Clinical Quality Measures DVT/VTE Risk/Contraindication: Risk Factor Score Per Nursin RFS Level Per Nursing on Admit: 3=High AUDI MUKHERJEE DO Dec 13, 2018 20:58
--- NOTE | 2018-12-13 21:09 | Progress Note-Post Operative ---
Post-Operative Progess Note Surgeon (s)/Patient Financial Services Specialist (s) Surgeon AUDI MUKHERJEE DO Patient Financial Services Specialist: na Pre-Operative Diagnosis hyptotension Post-Operative Diagnosis same Procedure & Operative Findings Date of Procedure 12/13/18 Procedure Performed/Findings right IJ u/s guided central line placement. Anesthesia Type local Estimated Blood Loss Estimated blood loss (mL): min Specimens/Packing Specimens Removed AUDI Way DO Dec 13, 2018 21:09
[2018-12-13] MEDS: morphine INJ 4 MG/ML 1 ML (VIAL/SYRINGE) IVP PRN (22:59)
[2018-12-14] VITALS (29 sets, daily range): BP systolic 89–152; BP diastolic 43–70
[2018-12-14] MEDS ORDERED: metroNIDAZOLE 500MG/100ML IVPB 100 ML IV ONE (00:30)
[2018-12-14] MEDS ORDERED: ETOMIDATE IV SOLN 20 MG/10 ML VIAL ONE (00:35)
[2018-12-14] MEDS ORDERED: SUCCINYLCHOLINE INJ 100 MG/5 ML SYR ONE (00:35)
[2018-12-14] MEDS ORDERED: CLINDAMYCIN 600 MG/50 ML IVPB 50 ML IV ONE (00:45)
[2018-12-14 00:47] LABS: INR 1.3 (0.8-1.4); PROTHROMBIN TIME PATIENT 15.8 SEC (12.2-14.7)
[2018-12-14] MEDS ORDERED: NS IV 1000 ML 1,000 ML ONE (00:53)
[2018-12-14] MEDS ORDERED: HYDROCORTISONE 100 MG/2 ML (Solu-CORTEF) VIAL ONE ×2 (00:53→00:57)
[2018-12-14] MEDS ORDERED: ISOFLURANE (FORANE) 15 ML/15 MIN INHALATION ONE ×8 (00:53→02:51)
[2018-12-14 00:54] LABS: MAGNESIUM 2.8 MG/DL (1.8-2.4); POTASSIUM 4.2 MMOL/L (3.6-5.0)
[2018-12-14] MEDS ORDERED: PHENYLEPHRINE 100 MCG/ML 10 ML (ANESTHESIA) SYR ONE (00:55)
[2018-12-14] MEDS ORDERED: CLINDAMYCIN 600 MG/4ML (CLEOCIN) VIAL ONE ×2 (00:55→01:03)
[2018-12-14] MEDS ORDERED: metroNIDAZOLE 500MG/100ML IVPB 100 ML ONE (01:03)
[2018-12-14] MEDS: NS IV 1000 ML 1,000 ML IV PRN ×2 (01:30→02:55)
[2018-12-14] MEDS ORDERED: ONDANSETRON 4 MG/2 ML (SDV) Z0FRAN ONE (02:24)
[2018-12-14] MEDS ORDERED: morphine INJ 10 MG/ML 1ML (SYR OR VIAL) ONE (02:51)
--- NOTE | 2018-12-14 02:53 | Progress Note-Standard ---
Standard Progress Note Progress Notes/Assess & Plan Date Seen by a Provider: Dec 13, 2018 Time Seen by a Provider: 11:50 Progress/Assessment & Plan Called by the nurse regarding increased abdominal distention, very severe tenderness and hypotension requiring vasopressor support. On examination, she had evidence of diffuse peritonitis and therefore expiratory laparotomy was felt to be appropriate. 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 I have reviewed the operative details which may involve total colectomy and ileostomy. I've also highlighted increased morbidity, potential for mortality and postoperative complications of intra-abdominal abscess, bleeding etc. The patient and her sons, who happened to be at the bedside, appeared to comprehend the reality of the situation and express their consented to proceed with surgery, that would be conducted emergently. Final Diagnosis peritonitis. Toxic megacolon Focused Exam Lactate Level 12/13/18 12:42: Lactic Acid Level 1.41 12/13/18 20:20: Lactic Acid Level 0.95 12/14/18 00:15: Lactic Acid Level 0.91 Lactic Acid Level Laboratory Tests Test 12/14/18 00:15 Lactic Acid Level 0.91 MMOL/L (0.50-2.00) DIVYA PEREZ MD Dec 14, 2018 02:53
--- NOTE | 2018-12-14 03:05 | Operative Report ---
Operative Report Date of Procedure/Surgery Dec 14, 2018 Surgeon (s) DIVYA PEREZ MD Aircraft Riveter (s): na Post-Operative Diagnosis toxic megacolon with ischemia Procedure Performed laparotomy/total colectomy/ileostomy Description of Procedure Anesthesia Type: General Estimated blood loss (mL): 25 mL Specimen(s) collected/removed Colon Description of the Procedure Indication for the procedure: This lady with severe COPD, has been managed for an exacerbation following a fall sustained a week ago. During that time, her troponin was elevated, leading to cardiac catheterization. Nonobstructive and insignificant coronary vasculature was discovered with no intervention required. She suffered constipation during the hospital course, culminating in profound distention and severe tenderness. Initial evaluation during the early hours of 12/13/18 was negative for perforation or ischemic bowel. Subsequent contrast enema ruled out mechanical obstruction. 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 Her symptoms improved temporarily. During the late evening hours, she developed more severe tenderness and distention, followed by severe hypotension, requiring vasopressor support. Therefore, toxic megacolon was suspected and immediate intervention was felt to be appropriate. Increased postoperative complications including the potential for mortality and the requirement for temporary ileostomy were discussed with her and her family members. Informed consent was obtained. description of the procedure: She was placed supine on the operating table and general anesthesia induced. 600 mg of clindamycin and 500 mg of Flagyl were administered intravenously as prophylaxis against wound infection. Abdomen was prepared and draped in the usual sterile manner. A midline incision was made and abdomen entered safely. Turbid fluid was found in the peritoneal cavity and suction. Entire colon was dilated, being more pronounced along the transverse colon and the cecum. There were areas of impending gangrene involving the proximal transverse colon, distal descending colon and the cecum. There was no sasha perforation. I began the mobilization involving the ileocecal junction. Terminal ileum was transected using an Endo ANGELA, 2.5 mm stapler. Ascending colon was mobilized using the Harmonic scalpel, continuing around the hepatic flexure to the splenic flexure. Proximal rectum was transected using the same stapling device and the sigmoid colon mobilized along the congenital white line of Toldt, using the Harmonic scalpel. The left ureter was protected. Spleen was also kept out of harm's way. Vascular pedicles were controlled using 0 transfixation sutures. The specimen was then removed and the abdominal cavity irrigated with 5 L of warm saline. an end ileostomy was created over the right lower quadrant, the stoma being brought out through the rectus muscle. It was secured temporarily with 4-0 Vicryl suture, pending closure of the abdomen. Linea alba was closed using #2 Prolene. Subcutaneous tissue and skin were left open, in anticipation of wound infection. A nonadherent dressing was then applied. Conventional Nivia ileostomy was then created after everting the end of the divided ileum. It was secured using 4-0 Vicryl sutures and a stoma bag applied. She tolerated the procedure well and remained stable. She was taken back to the intensive care unit in an intubated state. Findings of the Procedure See op report Allergies and Home Medications Allergies Coded Allergies: diphenhydramine HCl (Unverified Allergy, Severe, anaphalaxis, 09/10/14) Pt states this happened several yrs ago and that she had almost forgotten about it because she has avoided t for so long. fentanyl (Unverified Allergy, Mild, 09/10/14) PT DOES NOT WANT TO TAKE--SHE STAES IT MADE HER COPD WORSE midazolam (Unverified Allergy, Mild, PT TAKE LIBRIUM AT HOME, 09/10/14) PT DOESN'T WANT TO TAKE--SHE STATED IT MADE HER COPD OWRSE. Beta-Blockers (Beta-Adrenergic Bloc (Verified Allergy, Unknown, 09/10/14) Cephalosporins (Verified Allergy, Unknown, HAS RECEIVED CEFEPIME IN PAST W /O PROBLEM, 09/14/14) Penicillins (Verified Allergy, Unknown, HAS REC AZACTAM IN PAST WITHOUT PROBLEMS, 09/10/14) risedronic acid (Verified Allergy, Unknown, 09/10/14) prednisone (Unverified Adverse Reaction, Intermediate, Large doses cause SOA, 09/10/14) meperidine (Unverified Adverse Reaction, Mild, NAUSEA, 09/10/14) propofol (Unverified Adverse Reaction, Mild, 09/10/14) PT DOES NOT WANT TO TAKE--SHE STATES IT MADE HER COPD WORSE erythromycin base (Verified Adverse Reaction, Unknown, MAKES PATIENT NAUSEADED, 09/10/14) Home Medications Albuterol Sulfate 2.5 Mg/3 Ml Vial.neb, 2.5 MG NEB Q3H PRN for SHORTNESS OF BREATH, (Reported) Albuterol Sulfate 18 Gm Hfa.aer.ad, 2 PUFF INH Q4H PRN for SHORTNESS OF BREATH, (Reported) Aspirin 81 Mg Tablet.dr, 81 MG PO DAILY, (Reported) Carboxymethylcellulos/Glycerin 15 Ml Drops, 1 DROP OU TID PRN for DRY EYES, ( Reported) Chlordiazepoxide HCl 25 Mg Capsule, 25 MG PO BID, (Reported) Digoxin 125 Mcg Tablet, 62.5 MG PO DAILY, (Reported) TAKES 1/2 OF A (125 MCG) TABLET Diltiazem HCl 120 Mg Cap.er.24h, 120 MG PO DAILY, (Reported) Famotidine 20 Mg Tablet, 20 MG PO BID PRN for HEARTBURN, (Reported) Fluticasone/Salmeterol 12 Gm Hfa.aer.ad, 2 PUFF INH BID, (Reported) Furosemide 40 Mg Tablet, 20 MG PO DAILY, (Reported) TAKES 1/2 (40MG) TABLET Hydroxyzine HCl 10 Mg Tablet, 10 MG PO HS, (Reported) Losartan Potassium 50 Mg Tablet, 50 MG PO BID, (Reported) Mirtazapine 30 Mg Tablet, 30 MG PO HS, (Reported) Potassium Chloride 10 Meq Tablet.er, 10 MEQ PO DAILY, (Reported) Sennosides/Docusate Sodium 1 Each Tablet, 2 TAB PO DAILY PRN for CONSTIPATION- 6TH LINE, (Reported) Simvastatin 40 Mg Tablet, 40 MG PO HS, (Reported) Tiotropium Jones 1 Inh Aerp, 1 CAP IH DAILY, (Reported) Patient Home Medication List Home Medication List Reviewed: Yes DIVYA PEREZ MD Dec 14, 2018 03:05
[2018-12-14] MEDS: RT-ADVAIR HFA 115/21 MCG PER PUFF IH SCH ×3 (03:28→20:00)
[2018-12-14] MEDS: RT-ALBUTEROL SULF 2.5 MG/3 ML PRE-MIX VIAL INH SCH ×6 (03:36→22:21)
[2018-12-14] MEDS ORDERED: fentaNYL (OMNICELL DRIP KIT ONLY) 250 MCG/5 ML AMP ONE (03:46)
[2018-12-14] MEDS ORDERED: NS (IVPB) 100 ML ONE (03:47)
[2018-12-14] MEDS ORDERED: PROPOFOL DRIP (ICU) 100 ML IV ONE (03:47)
--- NOTE | 2018-12-14 04:07 | NUR ---
This RN pulled fentanyl gtt kit in error. Wasted full amount, witnessed by CHARBEL Gil.
[2018-12-14 05:01] LABS: BASOPHILS # (AUTO) 0.1 10^3/uL (0.0-0.1); BASOPHILS % (AUTO) 0 % (0-10); EOSINOPHILS # (AUTO) 0.1 10^3/uL (0.0-0.3); EOSINOPHILS % (AUTO) 0 % (0-10); HEMATOCRIT 33 % (35-52); HEMOGLOBIN 11.2 G/DL (11.5-16.0); LYMPHOCYTES # (AUTO) 1.2 X 10^3 (1.0-4.0); LYMPHOCYTES % (AUTO) 3 % (12-44); MEAN CORPUSCULAR HEMOGLOBIN 29 PG (25-34); MEAN CORPUSCULAR HGB CONC 34 G/DL (32-36); MEAN CORPUSCULAR VOLUME 85 FL (80-99); MEAN PLATELET VOLUME 10.1 FL (7.4-10.4); MONOCYTES # (AUTO) 1.3 X 10^3 (0.0-1.0); MONOCYTES % (AUTO) 3 % (0-12); NEUTROPHILS # (AUTO) 35.6 X 10^3 (1.8-7.8); NEUTROPHILS % (AUTO) 93 % (42-75); PLATELET COUNT 184 10^3/uL (130-400); RED CELL DISTRIBUTION WIDTH 18.5 % (10.0-14.5)
[2018-12-14 05:03] LABS: WHITE BLOOD COUNT 38.2 10^3/uL (4.3-11.0)
--- NOTE | 2018-12-14 05:03 | Pulmonary Progress Note ---
Subjective Time Seen by a Provider: 05:13 Subjective/Events-last exam Pt continued to worsen yesterday. Dr. Yates took pt to surgery and found intestinal ischemia. Sepsis Event Evaluation Height, Weight, BMI Height: 5'0.00" Weight: 121lbs. 8.0oz. 55.123966tw; 20.6 BMI Method:Stated Focused Exam Lactate Level 12/13/18 20:20: Lactic Acid Level 0.95 12/14/18 00:15: Lactic Acid Level 0.91 12/14/18 04:40: Lactic Acid Level Laboratory Tests Test 12/14/18 04:40 Exam Exam Vital Signs Date Time Temp Pulse Resp B/P (MAP) Pulse Ox O2 Delivery O2 Flow Rate FiO2 12/14/18 04:00 92 14 152/70 (97) 100 Mechanical Ventilator 70.00 12/14/18 04:00 92 12/14/18 03:10 81 14 100 70 12/14/18 00:00 101 23 98 Nasal Cannula 4.00 12/13/18 23:35 97.0 99 28 98/43 99 4.00 12/13/18 23:00 104 23 85/44 (58) 99 Nasal Cannula 4.00 12/13/18 22:38 99 High Flow N/C 4.00 12/13/18 22:03 97.9 105 37 105/30 94 High Flow N/C 4.00 12/13/18 22:00 101 31 105/39 (61) 98 Nasal Cannula 4.00 12/13/18 21:48 97.5 99 29 99/39 99 High Flow N/C 4.00 12/13/18 21:42 97.7 100 30 96/37 98 High Flow N/C 4.00 12/13/18 21:00 101 27 99/36 (57) 97 Nasal Cannula 4.00 12/13/18 20:00 87 28 97/45 (62) 97 Nasal Cannula 4.00 12/13/18 19:46 89 23 50/23 (32) 95 Nasal Cannula 4.00 12/13/18 19:45 90 29 58/40 (46) 96 Nasal Cannula 4.00 12/13/18 19:36 88 32 59/27 (38) 96 Nasal Cannula 4.00 12/13/18 19:35 89 36 61/41 (48) 97 Nasal Cannula 4.00 12/13/18 19:29 89 21 40/25 (30) 96 Nasal Cannula 4.00 12/13/18 19:00 97 22 98 Room Air 12/13/18 19:00 97 12/13/18 18:00 91 36 99/57 (71) 99 Nasal Cannula 4.00 12/13/18 17:00 90 31 87/54 (65) 99 Nasal Cannula 4.00 12/13/18 16:00 89 18 106/47 (66) 95 Nasal Cannula 4.00 12/13/18 16:00 High Flow N/C 4.00 12/13/18 15:00 90 22 79/39 (52) 94 Nasal Cannula 4.00 12/13/18 14:49 99 High Flow N/C 3.00 12/13/18 14:30 92 25 84/46 (59) 94 Nasal Cannula 4.00 12/13/18 14:15 96 27 83/47 (59) 96 Nasal Cannula 4.00 12/13/18 13:10 89 12/13/18 13:00 89 30 104/52 (69) 95 Nasal Cannula 4.00 12/13/18 12:25 94 29 110/46 (67) 91 Nasal Cannula 4.00 12/13/18 12:04 High Flow N/C 3.00 12/13/18 11:30 88 29 64/34 (44) 99 Nasal Cannula 3.00 12/13/18 11:15 82 24 116/62 (80) 98 Nasal Cannula 3.00 12/13/18 11:00 82 23 118/54 (75) 99 Nasal Cannula 3.00 12/13/18 10:45 86 29 99/53 (68) 98 Nasal Cannula 3.00 12/13/18 10:15 84 21 59/21 (34) 98 Nasal Cannula 3.00 12/13/18 10:00 86 26 107/62 (77) 99 Nasal Cannula 3.00 12/13/18 10:00 97.5 100 Nasal Cannula 12/13/18 09:51 87 12/13/18 09:21 96.4 12/13/18 09:00 High Flow N/C 3.00 12/13/18 08:00 96.4 90 18 89/47 (61) 98 High Flow N/C 3.00 12/13/18 07:00 85 12/13/18 06:56 91 High Flow N/C 3.00 I & O 12/14/18 07:00 Intake Total 3560 ml Output Total 1500 ml Balance 2060 ml Height & Weight Height: 5'0.00" Weight: 121lbs. 8.0oz. 55.985299ps; 20.6 BMI Method:Stated General Appearance: Moderate Distress, Other (pt is sedated on vent) HEENT: Normal ENT Inspection Neck: Supple Respiratory: Decreased Breath Sounds, Wheezing Cardiovascular: Regular Rate, Rhythm, Systolic Murmur Capillary Refill: Less Than 3 Seconds Gastrointestinal: tenderness (Diffuse, positive rebound) Extremity: Non Tender, No Calf Tenderness, No Pedal Edema Skin: Ecchymosis (arms and legs), Pallor Results Lab Laboratory Tests 12/13/18 03:10 12/13/18 12:42 12/13/18 16:40 12/13/18 20:20 12/14/18 00:15 Assessment/Plan Assessment/Plan Acute Respiratory failure -Continue ventilator Severe abdominal pain with guarding and rebound tenderness s/p acute abdomen secondary to toxic megacolon and ischemia -Dr. Yates is following Severe sepsis with septic shock -Start severe sepsis protocol -give 2 liter bolus then follow protocol -Repeat ashton culture -Levophed -D/c Levaquin -Continue Merrem COPDAE -Vapotherm/BiPAP PRN -titrate oxygen- pt is currently on Vapotherm high flow Atelectasis with pneumonia -Merrem , Levaquin ARF -monitor Anxiety HTN GREGOR JOSEPH DO Dec 14, 2018 05:03
[2018-12-14] MEDS ORDERED: LACTATED RINGERS 2,000 ML IV ONE (05:05)
[2018-12-14] MEDS: KCL 10 MEQ TAB (MICRO K) PO SCH (05:11)
[2018-12-14] MEDS: ARTIFICAL TEARS 0.4 ML UNIT DOSE (REFRESH PLUS) OU SCH ×4 (05:14→21:35)
[2018-12-14] MEDS ORDERED: LACTATED RINGERS IV PRN (05:15)
[2018-12-14] MEDS: hydrOXYzine (ATARAX) 10 MG TAB PO SCH ×2 (05:17→21:35)
[2018-12-14] MEDS: LORazepam 1 MG (ATIVAN) TAB PO SCH ×3 (05:17→21:35)
[2018-12-14] MEDS: ATORVASTATIN 40 MG (LIPITOR) TABLET PO SCH ×2 (05:17→21:35)
[2018-12-14] MEDS: MIRTAZAPINE 15 MG (REMERON) TAB PO SCH ×2 (05:17→21:35)
[2018-12-14] MEDS: ACETAMINOPHEN 325 MG TABLET PO SCH ×5 (05:18→23:21)
[2018-12-14] MEDS: SENNA W/DOCUSATE (SENOKOT S) TABLET PO SCH ×3 (05:18→20:24)
[2018-12-14] MEDS: NYSTATIN ORAL SUSP 5 ML UDC PO SCH ×5 (05:18→20:30)
[2018-12-14] MEDS: methylPREDNISolone 40 MG/ML (Solu-MEDROL) VIAL IV SCH ×4 (05:18→23:22)
[2018-12-14 05:34] LABS: CALCIUM 6.8 MG/DL (8.5-10.1); CREATININE SERUM 1.6 MG/DL (0.60-1.30); MAGNESIUM 2.5 MG/DL (1.8-2.4); PHOSPHORUS 4.7 MG/DL (2.3-4.7); POTASSIUM 3.7 MMOL/L (3.6-5.0)
[2018-12-14] MEDS: MEROPENEM 500 MG/SWFI 10 ML IV PUSH IV SCH ×6 (05:41→21:33)
[2018-12-14 05:46] LABS: ALBUMIN 2.6 GM/DL (3.2-4.5); BILIRUBIN,TOTAL 0.7 MG/DL (0.1-1.0); CALCIUM 6.9 MG/DL (8.5-10.1); CREATININE SERUM 1.61 MG/DL (0.60-1.30); POTASSIUM 3.7 MMOL/L (3.6-5.0); TOTAL PROTEIN 3.9 GM/DL (6.4-8.2)
[2018-12-14] MEDS ORDERED: LEVOFLOXACIN 500 MG/100 ML IV 100 ML IV SCH (06:00)
[2018-12-14] MEDS ORDERED: LACTATED RINGERS 1,000 ML IV SCH ×2 (06:00→07:00)
[2018-12-14] MEDS: NOREPINEPHRINE 4 MG in NS (IVPB) 250 ML IV SCH ×2 (06:05→15:05)
[2018-12-14] MEDS: LACTOBACILLUS ACIDOPHILUS (PROBIOTIC) CAPSULE PO SCH ×3 (06:07→16:16)
[2018-12-14] MEDS: POTASSIUM CL 10MEQ/50ML IVPB 50 ML IV SCH (06:07)
[2018-12-14] MEDS: MAGNESIUM 1 GM/100 ML IVPB 100 ML IV SCH (06:08)
[2018-12-14] MEDS: KCL 20 MEQ TAB (K-DUR) PO SCH (06:08)
--- NOTE | 2018-12-14 06:44 | OPERATIVE REPORT ---
DATE OF SERVICE: 12/13/2018 PREOPERATIVE DIAGNOSIS: Hypotension. POSTOPERATIVE DIAGNOSIS: Hypotension. PROCEDURE: Right internal jugular ultrasound-guided central line placement. SURGEON: Audi Rivers DO. ANESTHESIA: Local. ESTIMATED BLOOD LOSS: Minimal. COMPLICATIONS: None. INDICATIONS: The patient is a 78-year-old female in the Intensive Care Unit. She has a right midline, but had difficulty with it functioning and the patient becoming slightly hypotensive. It has been requested that a central line be placed. Consent was signed and on the chart. DESCRIPTION OF PROCEDURE: The patient was prepped and draped in a sterile fashion. Using ultrasound, the right internal jugular vein was visualized. Local anesthetic was infiltrated into the area and the right internal jugular vein was accessed on the guidance of the ultrasound. Dark nonpulsatile blood was withdrawn. The guidewire was inserted through the needle and the needle was removed. A #11 blade scalpel was used to make an incision at the insertion point. A dilator was then advanced over the wire and removed. The triple lumen catheter was inserted over the wire and the wire was removed. The triple lumen catheter was then secured at approximately 13 cm using 3-0 nylon. This was sutured in place. All ports were accessed and flushed without difficulty. The area was then washed and dried and sterile bandages were applied. The patient tolerated the procedure well without any complications. Chest x-ray is pending. Job ID: [id number] DocumentID: [id number] Dictated Date: 12/13/2018 21:09:15 Tool And Production Planner Date: 12/14/2018 06:44:30 Dictated By: AUDI RIVERS DO
[2018-12-14] MEDS: UMECLIDINIUM BROMIDE (INCRUSE ELLIPTA) 7'S IH SCH (06:47)
[2018-12-14] MEDS: LACTATED RINGERS 1,000 ML IV SCH ×5 (07:50→21:53)
[2018-12-14] MEDS: fentaNYL INJECTION 100 MCG/2 ML AMP IV PRN ×3 (07:51→21:35)
[2018-12-14 08:20] LABS: ABG BASE EXCESS -2.3 MMOL/L (-2.5-2.5); ABG OXYGEN SATURATION 100 % (94-100); ABG PCO2 44 MMHG (35-45); ABG PO2 188 MMHG (79-93); ABG TCO2 24.2 MMOL/L (21.0-31.0)
--- NOTE | 2018-12-14 08:20 | Diagnostic Imaging Report ---
INDICATION: Ventilator support. TIME OF EXAM: 5:23 AM Correlation is made with prior exam from one day earlier. FINDINGS: The patient has been intubated since prior exam. Endotracheal tube appears to be in good position above the marie. Nasogastric tube has been placed and passes below the hemidiaphragm located in the gastric body. Right IJ central line has tip overlying the SVC. Lungs do show some hyperinflation consistent with COPD. Linear parenchymal densities are identified in the right upper and right lower lobe consistent with scarring. There is no evidence of congestive failure. No effusion or pneumothorax is seen. There is some left apical pleural parenchymal thickening present. IMPRESSION: 1. Chronic changes. No acute cardiopulmonary process is detected. 2. Satisfactory placement of endotracheal and nasogastric tubes. Dictated by: Dictated on workstation # [id number]
[2018-12-14 08:24] LABS: ABG PH 7.33 (7.37-7.43); ALLENS TEST YES-POS; INSPIRED O2 50%; PATIENT TEMP 98.5; VENTILATOR YES
[2018-12-14] MEDS ORDERED: NS IV 1000 ML 1,000 ML IV ONE (08:30)
[2018-12-14] MEDS: ALBUMIN 5% 12.5 GM/250 ML 250 ML IV SCH (08:44)
[2018-12-14] MEDS: DILTIAZEM 120 MG (CARDIZEM CD) CAP PO SCH (08:49)
[2018-12-14] MEDS: LOSARTAN 25 MG (COZAAR) TAB PO SCH (08:49)
[2018-12-14] MEDS: ASPIRIN E.C. 81 MG (ECOTRIN) TAB PO SCH (08:50)
[2018-12-14] MEDS: DIGOXIN 62.5 MCG (LANOXIN) TAB PO SCH (08:51)
[2018-12-14] MEDS: PANTOPRAZOLE 40 MG (PROTONIX) VIAL IV SCH (08:55)
--- NOTE | 2018-12-14 09:41 | Progress Note-Cardiology ---
Cardiology SOAP Progress Note Subjective: Intubated and on mech vent after abd surgery overnight Objective: I&O/Vital Signs 12/13/18 12/13/18 12/13/18 12/13/18 21:42 21:48 22:00 22:03 Temp 97.7 97.5 97.9 Pulse 100 99 101 105 Resp 30 29 31 37 B/P (MAP) 96/37 99/39 105/39 (61) 105/30 Pulse Ox 98 99 98 94 O2 Delivery High Flow N/C High Flow N/C Nasal Cannula High Flow N/C O2 Flow Rate 4.00 4.00 4.00 4.00 12/13/18 12/13/18 12/13/18 12/14/18 22:38 23:00 23:35 00:00 Temp 97.0 Pulse 104 99 101 Resp 23 28 23 B/P (MAP) 85/44 (58) 98/43 Pulse Ox 99 99 99 98 O2 Delivery High Flow N/C Nasal Cannula Nasal Cannula O2 Flow Rate 4.00 4.00 4.00 4.00 12/14/18 12/14/18 12/14/18 12/14/18 00:00 00:00 03:10 03:55 Temp 97.2 97.0 Pulse 81 89 Resp 14 14 B/P (MAP) 115/57 Pulse Ox 100 100 O2 Delivery High Flow N/C Mechanical Ventilator O2 Flow Rate 4.00 70.00 FiO2 70 12/14/18 12/14/18 12/14/18 12/14/18 04:00 04:00 04:00 04:40 Pulse 92 92 89 Resp 14 14 B/P (MAP) 152/70 (97) Pulse Ox 100 100 O2 Delivery Mechanical Ventilator High Flow N/C O2 Flow Rate 70.00 4.00 FiO2 70 12/14/18 12/14/18 12/14/18 12/14/18 05:00 05:42 06:00 06:14 Temp 97.0 97.6 Pulse 91 89 89 Resp 14 14 14 B/P (MAP) 128/61 (83) 115/57 109/49 (69) Pulse Ox 100 100 100 O2 Delivery Mechanical Ventilator Mechanical Ventilator Mechanical Ventilator O2 Flow Rate 70.00 70.00 70.00 12/14/18 12/14/18 12/14/18 06:25 06:48 08:13 Temp 98.5 Pulse 89 91 Resp 14 14 B/P (MAP) 131/56 (81) Pulse Ox 100 100 O2 Delivery Mechanical Ventilator O2 Flow Rate 50.00 FiO2 50 12/14/18 00:00 Intake Total 3010 ml Output Total 1800 ml Balance 1210 ml Weight (Pounds): 120 Weight (Ounces): 6.0 Weight (Calculated Kilograms): 54.691847 Constitutional: other (On mech vent, thin appearing) Respiratory: chest expansion is symmetric, chest is bilaterally symmetric, rhonchi (scattered), other (prolonged expiratory phase) Cardiovascular: No JVD; tachycardia, S1 and S2, systolic murmur Gastrointestional: other (abd is freshly post op; we did not attempt any deep palp; bs absent) Extremities: no lower extremity edema bilateral Neurologic/Psychiatric: grossly intact, power is 5/5 both on sides Skin: No rash, No ulcerations; other (multiple abrasions to knees and arms which are under dressings not removed; multiple bruises to arms and legs bilat) Results/Procedures: Labs Laboratory Tests 12/13/18 12:36: Lab Scanned Report Transfusion Reaction Form 12/13/18 12:42: White Blood Count 45.8*H, Red Blood Count 3.48L, Hemoglobin 10.5L, Hematocrit 30L, Mean Corpuscular Volume 86, Mean Corpuscular Hemoglobin 30, Mean Corpuscular Hemoglobin Concent 35, Red Cell Distribution Width 16.4H, Platelet Count 190, Mean Platelet Volume 9.7, Neutrophils (%) (Auto) 93H, Lymphocytes (% ) (Auto) 5L, Monocytes (%) (Auto) 3, Eosinophils (%) (Auto) 0, Basophils (%) ( Auto) 0, Neutrophils # (Auto) 42.4H, Lymphocytes # (Auto) 2.1, Monocytes # (Auto ) 1.2H, Eosinophils # (Auto) 0.0, Basophils # (Auto) 0.1, Sodium Level 141, Potassium Level 3.5L, Chloride Level 101, Carbon Dioxide Level 26, Anion Gap 14 , Blood Urea Nitrogen 107*H, Creatinine 1.54H, Estimat Glomerular Filtration Rate 32, BUN/Creatinine Ratio 69, Glucose Level 139H, Lactic Acid Level 1.41, Calcium Level 7.9L, Corrected Calcium 9.1, Phosphorus Level 4.8H, Magnesium Level 2.6H, Total Bilirubin 0.6, Aspartate Amino Transf (AST/SGOT) 43H, Alanine Aminotransferase (ALT/SGPT) 24, Alkaline Phosphatase 32L, Total Protein 4.2L, Albumin 2.5L 12/13/18 16:40: White Blood Count 44.3*H, Red Blood Count 3.48L, Hemoglobin 10.5L, Hematocrit 30L, Mean Corpuscular Volume 87, Mean Corpuscular Hemoglobin 30, Mean Corpuscular Hemoglobin Concent 35, Red Cell Distribution Width 16.8H, Platelet Count 180, Mean Platelet Volume 9.6, Neutrophils (%) (Auto) 94H, Lymphocytes (% ) (Auto) 4L, Monocytes (%) (Auto) 2, Eosinophils (%) (Auto) 0, Basophils (%) ( Auto) 0, Neutrophils # (Auto) 41.7H, Lymphocytes # (Auto) 1.6, Monocytes # (Auto ) 1.0, Eosinophils # (Auto) 0.0, Basophils # (Auto) 0.1, Sodium Level 143, Potassium Level 3.5L, Chloride Level 104, Carbon Dioxide Level 25, Anion Gap 14 , Blood Urea Nitrogen 102*H, Creatinine 1.55H, Estimat Glomerular Filtration Rate 32, BUN/Creatinine Ratio 66, Glucose Level 123H, Calcium Level 7.7L, Corrected Calcium 8.9, Phosphorus Level 5.2H, Magnesium Level 2.6H, Total Bilirubin 0.8, Aspartate Amino Transf (AST/SGOT) 50H, Alanine Aminotransferase ( ALT/SGPT) 25, Alkaline Phosphatase 40, Total Protein 4.3L, Albumin 2.5L, B-Type Natriuretic Peptide 656.3H 12/13/18 20:20: Hemoglobin 8.9L, Hematocrit 26L, Lactic Acid Level 0.95, Troponin I 0.368*H 12/14/18 00:15: Hemoglobin 10.9#L, Prothrombin Time 15.8H, INR Comment 1.3, Activated Partial Thromboplast Time 29, Potassium Level 4.2, Lactic Acid Level 0.91, Magnesium Level 2.8H, Lipase 60 12/14/18 04:40: Hemoglobin 11.2L, Potassium Level 3.7, Lactic Acid Level 1.27, Magnesium Level 2.5H, White Blood Count 38.2*H, Red Blood Count 3.90L, Hematocrit 33L, Mean Corpuscular Volume 85, Mean Corpuscular Hemoglobin 29, Mean Corpuscular Hemoglobin Concent 34, Red Cell Distribution Width 18.5H, Platelet Count 184, Mean Platelet Volume 10.1, Neutrophils (%) (Auto) 93H, Lymphocytes (%) (Auto) 3L , Monocytes (%) (Auto) 3, Eosinophils (%) (Auto) 0, Basophils (%) (Auto) 0, Neutrophils # (Auto) 35.6H, Lymphocytes # (Auto) 1.2, Monocytes # (Auto) 1.3H, Eosinophils # (Auto) 0.1, Basophils # (Auto) 0.1, Sodium Level 146H, Chloride Level 114H, Carbon Dioxide Level 20L, Anion Gap 12, Blood Urea Nitrogen 92H, Creatinine 1.61H, Estimat Glomerular Filtration Rate 31, BUN/Creatinine Ratio 57 , Glucose Level 104, Calcium Level 6.9L, Corrected Calcium 8.0L, Phosphorus Level 4.7, Total Bilirubin 0.7, Aspartate Amino Transf (AST/SGOT) 60H, Alanine Aminotransferase (ALT/SGPT) 21, Alkaline Phosphatase 50, Troponin I 0.464*H, B- Type Natriuretic Peptide 906.2H, Total Protein 3.9L, Albumin 2.6L 12/14/18 08:05: Blood Gas Puncture Site RT RAD, Blood Gas Patient Temperature 98.5, Arterial Blood pH 7.33*L, Arterial Blood Partial Pressure CO2 44, Arterial Blood Partial Pressure O2 188H, Arterial Blood HCO3 23, Arterial Blood Total CO2 24.2, Arterial Blood Oxygen Saturation 100, Arterial Blood Base Excess -2.3, Nahid Test YES-POS, Blood Gas Ventilator Setting YES, Blood Gas Inspired Oxygen 50% Microbiology 12/05/18 Urine Culture - Final, Complete See Report Laboratory Tests 12/13/18 03:10 12/13/18 12:42 12/13/18 16:40 12/13/18 20:20 12/14/18 00:15 12/14/18 04:40 A/P: Assessment: Surgery for toxic megacolon and ischemic bowel on 12/14/18 Ac on chronic resp failure due to ac exac of COPD and ac giron CHF Marked anemia of undetermined etiology, followed and treated by the Med S[facility], s/ p transfusion Ac NSTEMI, but card cath of 12/06/18 shows only minimal CAD and elevated LVEDP. Cath in 2008, following NSTEMI, had also not shown any significant CAD S/P non-syncopal fall on 12-05-18 resulting in multiple abrasions Chronic kidney disease, stage 3, with some contrast nephropathy post card cath of 12/06/18 TIA on Mar 08 2018 for which she was seen in the ED Severe chronic obstructive pulmonary disease due to prior tobaccoism. Tobaccoism that she quit in 2005. H/O cardiomyopathy with an ejection fraction of 30%, both ischemic and non- ischemic per cardiac catheterization from December 2008. Most recent echocardiogram of May 2017 showed LVEF 55-60%. Mild to mod AoR, TR, and MR. Diastolic dysfunction. Palpitations, probably related to known paroxysmal supraventricular tachycardia/ atrial fibrillation, currently controlled. The patient is considered intolerant to warfarin for several reasons, including episodes of marked epistaxis and hemoptysis, even without warfarin therapy. Also, she is prone to falls, given her generalized frail status. She refuses any oral anticoagulants; agrees only to aspirin for stroke prophylaxis Severe anxiety, currently controlled. Osteoporosis and degenerative joint disease Gastroesophageal reflux. H/O intermittent congestive heart failure due to diastolic and systolic dysfunction of the left ventricle, currently controlled. Hyperlipidemia, well controlled on therapy with simvastatin. H/o left cataract surgery. Mild ascending aortic aneurysm measuring 4.2 cm found incidentally on a CT scan or 07/10/[address] Christine Morales nodules being followed by Dr King Carotid u/s of 04/19/18: less than 40% ROSY, 50-60% LICA stenoses Diagnosis of hypothyroidism in April 2018, managed by Dr Paz, but she has been noncompliant with thyroid replacement therapy Plan: * Complex management due to multiple comorbidities * Monitor labs closely * Prognosis guarded CASSIE ARANA MD FACP [facility] Dec 14, 2018 09:41
--- NOTE | 2018-12-14 10:06 | Physical Therapy Progress Note ---
Therapy Progress Note Patient intubated and on mechanical vent after surgery. Will await new orders when patient is appropriate to participate with PT. FLY SAAB PT Dec 14, 2018 10:06
[2018-12-14] MEDS: inSUlin ASPART (NovoLOG) 1 UNIT/0.01 ML (CHARGE PER UNIT) SQ SCH ×2 (11:24→18:12)
[2018-12-14] MEDS ORDERED: LACTATED RINGERS 1,000 ML IV ONE (13:15)
--- NOTE | 2018-12-14 13:26 | Progress Note-Standard ---
Standard Progress Note Progress Notes/Assess & Plan Date Seen by a Provider: Dec 14, 2018 Time Seen by a Provider: 13:26 Progress/Assessment & Plan Called by the nurse regarding increased abdominal distention, very severe tenderness and hypotension requiring vasopressor support. On examination, she had evidence of diffuse peritonitis and therefore expiratory laparotomy was felt to be appropriate. 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 I have reviewed the operative details which may involve total colectomy and ileostomy. I've also highlighted increased morbidity, potential for mortality and postoperative complications of intra-abdominal abscess, bleeding etc. The patient and her sons, who happened to be at the bedside, appeared to comprehend the reality of the situation and express their consented to proceed with surgery, that would be conducted emergently. 12/14/18:hemodynamically stable. Levophed being weaned. Urine output satisfactory. White cell count decreasing. Hemoglobin stable. Ileostomy healthy. We'll try early enteral nutrition. Vent weaning to commence in 24-48 hours. Final Diagnosis toxic megacolon with ischemia Focused Exam Lactate Level 12/13/18 20:20: Lactic Acid Level 0.95 12/14/18 00:15: Lactic Acid Level 0.91 12/14/18 04:40: Lactic Acid Level 1.27 DIVYA PEREZ MD Dec 14, 2018 13:26
--- NOTE | 2018-12-14 14:00 | NUR ---
PULMOCARE STARTED AT 10ML/HR PER DR PEREZ.
[2018-12-14] MEDS: FAMOTIDINE 20 MG (PEPCID) TABLET PO SCH (15:39)
--- NOTE | 2018-12-14 17:46 | Progress Note (SOAP) ---
Subjective Date Seen by a Provider: Dec 14, 2018 Time Seen by a Provider: 08:30 Subjective/Events-last exam Fwup pneumonia, COPD with acute exacerbation, UTI, fall with left arm skin tear and knee abrasions, anemia, CHF, abdominal pain/ileus. Had worsening pain last night and had to be taken emergently to surgery. 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 Now sedated on ventilator and on levaphed. Focused Exam Lactate Level 12/13/18 20:20: Lactic Acid Level 0.95 12/14/18 00:15: Lactic Acid Level 0.91 12/14/18 04:40: Lactic Acid Level 1.27 Objective Exam Vital Signs Date Time Temp Pulse Resp B/P (MAP) Pulse Ox O2 Delivery O2 Flow Rate FiO2 12/14/18 16:00 97 16 108/50 (69) 97 Mechanical Ventilator 30.00 12/14/18 15:40 99.0 12/14/18 15:21 Mechanical Ventilator 30 12/14/18 15:08 117/66 12/14/18 15:00 105 16 89/47 (61) 96 Mechanical Ventilator 30.00 12/14/18 14:37 104 16 95 30 12/14/18 14:00 103 16 101/53 (69) 96 Mechanical Ventilator 30.00 12/14/18 13:00 104 12/14/18 13:00 104 15 99/45 (63) 99 Mechanical Ventilator 30.00 12/14/18 12:00 104 15 106/48 (67) 99 Mechanical Ventilator 35.00 12/14/18 11:44 Mechanical Ventilator 35 12/14/18 11:24 98.6 12/14/18 11:00 103 16 102/45 (64) 99 Mechanical Ventilator 35.00 12/14/18 10:52 102 16 99 35 12/14/18 10:00 101 16 100/43 (62) 98 Mechanical Ventilator 35.00 12/14/18 09:00 98 15 104/50 (68) 98 Mechanical Ventilator 35.00 12/14/18 08:30 Mechanical Ventilator 35.00 12/14/18 08:13 98.5 12/14/18 08:00 Mechanical Ventilator 50 12/14/18 08:00 91 14 112/49 (70) 100 Mechanical Ventilator 50.00 12/14/18 07:00 92 2/6/19 07:00 91 13 132/54 (80) 100 Mechanical Ventilator 50.00 12/14/18 06:48 91 14 100 50 12/14/18 06:25 89 14 131/56 (81) 100 Mechanical Ventilator 50.00 12/14/18 06:14 97.6 12/14/18 06:00 89 14 109/49 (69) 100 Mechanical Ventilator 70.00 12/14/18 05:42 97.0 89 14 115/57 100 Mechanical Ventilator 70.00 12/14/18 05:00 91 14 128/61 (83) 100 Mechanical Ventilator 70.00 12/14/18 04:40 89 14 100 70 12/14/18 04:00 High Flow N/C 4.00 12/14/18 04:00 92 14 152/70 (97) 100 Mechanical Ventilator 70.00 12/14/18 04:00 92 12/14/18 03:55 97.0 89 14 115/57 100 Mechanical Ventilator 70.00 12/14/18 03:10 81 14 100 70 12/14/18 00:00 High Flow N/C 4.00 12/14/18 00:00 97.2 12/14/18 00:00 101 23 98 Nasal Cannula 4.00 12/13/18 23:35 97.0 99 28 98/43 99 4.00 12/13/18 23:00 104 23 85/44 (58) 99 Nasal Cannula 4.00 12/13/18 22:38 99 High Flow N/C 4.00 12/13/18 22:03 97.9 105 37 105/30 94 High Flow N/C 4.00 12/13/18 22:00 101 31 105/39 (61) 98 Nasal Cannula 4.00 12/13/18 21:48 97.5 99 29 99/39 99 High Flow N/C 4.00 12/13/18 21:42 97.7 100 30 96/37 98 High Flow N/C 4.00 12/13/18 21:00 101 27 99/36 (57) 97 Nasal Cannula 4.00 12/13/18 20:00 High Flow N/C 4.00 12/13/18 20:00 87 28 97/45 (62) 97 Nasal Cannula 4.00 12/13/18 19:46 89 23 50/23 (32) 95 Nasal Cannula 4.00 12/13/18 19:45 90 29 58/40 (46) 96 Nasal Cannula 4.00 12/13/18 19:36 88 32 59/27 (38) 96 Nasal Cannula 4.00 12/13/18 19:35 89 36 61/41 (48) 97 Nasal Cannula 4.00 12/13/18 19:29 89 21 40/25 (30) 96 Nasal Cannula 4.00 12/13/18 19:00 97.0 12/13/18 19:00 97 22 98 Room Air 12/13/18 19:00 97 12/13/18 18:00 91 36 99/57 (71) 99 Nasal Cannula 4.00 I & O 12/14/18 07:00 Intake Total 6514 ml Output Total 2250 ml Balance 4264 ml Capillary Refill : Less Than 3 SecondsLess Than 3 Seconds General Appearance: Other (sedated on ventilator) Neck: Supple Respiratory: Decreased Breath Sounds, Wheezing Cardiovascular: Regular Rate, Rhythm Gastrointestinal: soft, abnormal bowel sounds, other (dressings dry and in place with ostomy in place ) Extremity: No Pedal Edema Neurologic/Psychiatric: Other (sedated) Skin: Warm/Dry Results Lab Laboratory Tests 12/13/18 20:20: Hemoglobin 8.9L, Hematocrit 26L, Lactic Acid Level 0.95, Troponin I 0.368*H 12/14/18 00:15: Hemoglobin 10.9#L, Lactic Acid Level 0.91, Prothrombin Time 15.8H, INR Comment 1.3, Activated Partial Thromboplast Time 29, Potassium Level 4.2, Magnesium Level 2.8H, Lipase 60 12/14/18 04:40: Hemoglobin 11.2L, Hematocrit 33L, Lactic Acid Level 1.27, Troponin I 0.464*H, Potassium Level 3.7, Magnesium Level 2.5H, White Blood Count 38.2*H, Red Blood Count 3.90L, Mean Corpuscular Volume 85, Mean Corpuscular Hemoglobin 29, Mean Corpuscular Hemoglobin Concent 34, Red Cell Distribution Width 18.5H, Platelet Count 184, Mean Platelet Volume 10.1, Neutrophils (%) (Auto) 93H, Lymphocytes (% ) (Auto) 3L, Monocytes (%) (Auto) 3, Eosinophils (%) (Auto) 0, Basophils (%) ( Auto) 0, Neutrophils # (Auto) 35.6H, Lymphocytes # (Auto) 1.2, Monocytes # (Auto ) 1.3H, Eosinophils # (Auto) 0.1, Basophils # (Auto) 0.1, Sodium Level 146H, Chloride Level 114H, Carbon Dioxide Level 20L, Anion Gap 12, Blood Urea Nitrogen 92H, Creatinine 1.61H, Estimat Glomerular Filtration Rate 31, BUN/ Creatinine Ratio 57, Glucose Level 104, Calcium Level 6.9L, Corrected Calcium 8.0L, Phosphorus Level 4.7, Total Bilirubin 0.7, Aspartate Amino Transf (AST/ SGOT) 60H, Alanine Aminotransferase (ALT/SGPT) 21, Alkaline Phosphatase 50, B- Type Natriuretic Peptide 906.2H, Total Protein 3.9L, Albumin 2.6L 12/14/18 08:05: Blood Gas Puncture Site RT RAD, Blood Gas Patient Temperature 98.5, Arterial Blood pH 7.33*L, Arterial Blood Partial Pressure CO2 44, Arterial Blood Partial Pressure O2 188H, Arterial Blood HCO3 23, Arterial Blood Total CO2 24.2, Arterial Blood Oxygen Saturation 100, Arterial Blood Base Excess -2.3, Nahid Test YES-POS, Blood Gas Ventilator Setting YES, Blood Gas Inspired Oxygen 50% 12/14/18 11:23: Glucometer 94 12/14/18 11:37: Troponin I 0.455*H, Thyroid Stimulating Hormone (TSH) 1.33 12/14/18 14:38: Lab Scanned Report Transfusion Reaction Form 12/14/18 17:17: Glucometer 97 Microbiology 12/13/18 Blood Culture - Preliminary, Resulted No growth 12/05/18 Urine Culture - Final, Complete See Report Assessment/Plan Assessment/Plan Assess & Plan/Chief Complaint 1. 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 Acute Exacerbation of COPD-- 3. RLL Pneumonia--cont Maxipime 4. Fall with left wrist skin tear and left knee contusion--wounds dressed 5. Thrush--add diflucan 6. Acute Renal Insufficiency--hydrate and monitor Cr 7. Acute on Chronic Respiratory Failure--sedated on ventilator 8. Acute on Chronic Diastolic CHF--on IV lasix and diuresing well 9. Acute on Chronic Anemia--S/P transfusion 10. Severe Sepsis--on maxipime and sepsis protocol 11. Condition guarded Clinical Quality Measures Admission Status Admission Dx 1. Acute non STEMI--admit to cardiac in ICU on Brilinta and Heparin with cardiac catheterization by cardiology 2. Hypertension--resume home meds 3. COPD--oxygen, nebulizer treatments 4. UTI--started on Bactrim 5. Chronic Anemia--monitor H/H 6. Left wrist skin tear and abrasions from fall--dressed and will monitor for bleeding with blood thinners DVT/VTE Risk/Contraindication: Risk Factor Score Per Nursin RFS Level Per Nursing on Admit: 3=High MELODY MCGEE DO Dec 14, 2018 17:46
[2018-12-14] MEDS ORDERED: FLUCONAZOLE 200 MG/100 ML 50 ML, SYRINGE-IVPB 1 SYRINGE IV NR ×2 (18:00)
[2018-12-14] MEDS: ENOXAPARIN 30 MG/0.3 ML (LOVENOX) SYR SC SCH (18:40)
[2018-12-14] MEDS ORDERED: ENOXAPARIN 30 MG/0.3 ML (LOVENOX) SYR SC SCH (22:00)
[2018-12-15] VITALS (36 sets, daily range): BP systolic 61–146; BP diastolic 35–67
[2018-12-15] MEDS: inSUlin ASPART (NovoLOG) 1 UNIT/0.01 ML (CHARGE PER UNIT) SQ SCH ×4 (00:43→18:09)
[2018-12-15] MEDS: LACTATED RINGERS 1,000 ML IV SCH ×5 (00:48→18:00)
[2018-12-15] MEDS: RT-ALBUTEROL SULF 2.5 MG/3 ML PRE-MIX VIAL INH SCH ×6 (02:58→22:04)
[2018-12-15 03:33] LABS: ABG BASE EXCESS -3.3 MMOL/L (-2.5-2.5); ABG OXYGEN SATURATION 98 % (94-100); ABG PCO2 38 MMHG (35-45); ABG PH 7.37 (7.37-7.43); ABG PO2 87 MMHG (79-93); ABG TCO2 22.5 MMOL/L (21.0-31.0); ALLENS TEST YES-POS; INSPIRED O2 30%; VENTILATOR YES
[2018-12-15 03:34] LABS: PATIENT TEMP 97.8
[2018-12-15 03:35] LABS: BASOPHILS % (AUTO) 0 % (0-10); EOSINOPHILS % (AUTO) 0 % (0-10); HEMATOCRIT 26 % (35-52); HEMOGLOBIN 8.9 G/DL (11.5-16.0); LYMPHOCYTES # (AUTO) 0.5 X 10^3 (1.0-4.0); LYMPHOCYTES % (AUTO) 2 % (12-44); MEAN CORPUSCULAR HEMOGLOBIN 29 PG (25-34); MEAN CORPUSCULAR HGB CONC 34 G/DL (32-36); MEAN CORPUSCULAR VOLUME 86 FL (80-99); MEAN PLATELET VOLUME 9.9 FL (7.4-10.4); MONOCYTES # (AUTO) 0.9 X 10^3 (0.0-1.0); MONOCYTES % (AUTO) 3 % (0-12); NEUTROPHILS % (AUTO) 95 % (42-75); PLATELET COUNT 168 10^3/uL (130-400); RED CELL DISTRIBUTION WIDTH 19.4 % (10.0-14.5)
[2018-12-15 03:49] LABS: WHITE BLOOD COUNT 30.4 10^3/uL (4.3-11.0)
[2018-12-15 03:50] LABS: CALCIUM 7.8 MG/DL (8.5-10.1); CREATININE SERUM 1.58 MG/DL (0.60-1.30); MAGNESIUM 2.1 MG/DL (1.8-2.4); PHOSPHORUS 4.6 MG/DL (2.3-4.7)
[2018-12-15] MEDS: ACETAMINOPHEN 325 MG TABLET PO SCH ×4 (04:10→23:37)
[2018-12-15] MEDS: LACTOBACILLUS ACIDOPHILUS (PROBIOTIC) CAPSULE PO SCH ×3 (04:11→16:08)
[2018-12-15] MEDS: NYSTATIN ORAL SUSP 5 ML UDC PO SCH ×4 (04:11→23:38)
[2018-12-15] MEDS: KCL 20 MEQ TAB (K-DUR) PO SCH (04:11)
[2018-12-15] MEDS: POTASSIUM CL 10MEQ/50ML IVPB 50 ML IV SCH (04:11)
[2018-12-15] MEDS: MAGNESIUM 1 GM/100 ML IVPB 100 ML IV SCH (04:11)
[2018-12-15] MEDS: methylPREDNISolone 40 MG/ML (Solu-MEDROL) VIAL IV SCH ×3 (05:40→21:16)
[2018-12-15] MEDS: fentaNYL INJECTION 100 MCG/2 ML AMP IV PRN ×4 (05:46→21:16)
--- NOTE | 2018-12-15 06:27 | Pulmonary Progress Note ---
Subjective Time Seen by a Provider: 06:26 Subjective/Events-last exam PT is only on minimal Levophed. Sepsis Event Evaluation Height, Weight, BMI Height: 5'0.00" Weight: 130lbs. 5.0oz. [id number]; 20.6 BMI Method:Stated Focused Exam Lactate Level 12/13/18 20:20: Lactic Acid Level 0.95 12/14/18 00:15: Lactic Acid Level 0.91 12/14/18 04:40: Lactic Acid Level 1.27 Exam Exam Vital Signs Date Time Temp Pulse Resp B/P (MAP) Pulse Ox O2 Delivery O2 Flow Rate FiO2 12/15/18 05:00 106 19 107/50 (69) 98 Mechanical Ventilator 30.00 12/15/18 05:00 105 18 99 30 12/15/18 04:00 98 Mechanical Ventilator 30.00 12/15/18 04:00 97.8 12/15/18 04:00 105 16 98/47 (64) 97 Mechanical Ventilator 30.00 12/15/18 03:00 101 16 105/46 (65) 99 Mechanical Ventilator 30.00 12/15/18 02:59 100 16 99 30 12/15/18 02:00 101 16 97/50 (66) 99 Mechanical Ventilator 30.00 12/15/18 01:20 100 29 100/46 (64) 99 Mechanical Ventilator 30.00 12/15/18 01:00 101 12/15/18 00:27 101 16 98 30 12/15/18 00:00 101 16 98/50 (66) 98 Mechanical Ventilator 30.00 12/15/18 00:00 98.8 12/15/18 00:00 98 Mechanical Ventilator 30.00 12/14/18 23:10 101 15 101/50 (67) 98 Mechanical Ventilator 30.00 12/14/18 23:00 101 16 94/44 (61) 97 Mechanical Ventilator 30.00 12/14/18 22:21 100 16 97 30 12/14/18 22:00 97 15 99/49 (66) 97 Mechanical Ventilator 30.00 12/14/18 21:00 99 15 101/50 (67) 97 Mechanical Ventilator 30.00 12/14/18 20:01 101 16 97 30 12/14/18 20:00 97.0 12/14/18 20:00 98 Mechanical Ventilator 30.00 12/14/18 20:00 101 16 100/48 (65) 97 Mechanical Ventilator 30.00 12/14/18 19:00 105 12/14/18 19:00 105 16 115/67 (83) 97 Mechanical Ventilator 30.00 12/14/18 18:31 98 16 98 30 12/14/18 18:00 96 16 103/50 (67) 98 Mechanical Ventilator 30.00 12/14/18 17:00 96 15 107/56 (73) 97 Mechanical Ventilator 30.00 12/14/18 16:00 97 16 108/50 (69) 97 Mechanical Ventilator 30.00 12/14/18 15:40 99.0 12/14/18 15:21 Mechanical Ventilator 30 12/14/18 15:08 117/66 12/14/18 15:00 105 16 89/47 (61) 96 Mechanical Ventilator 30.00 12/14/18 14:37 104 16 95 30 12/14/18 14:00 103 16 101/53 (69) 96 Mechanical Ventilator 30.00 12/14/18 13:00 104 12/14/18 13:00 104 15 99/45 (63) 99 Mechanical Ventilator 30.00 12/14/18 12:00 104 15 106/48 (67) 99 Mechanical Ventilator 35.00 12/14/18 11:44 Mechanical Ventilator 35 12/14/18 11:24 98.6 12/14/18 11:00 103 16 102/45 (64) 99 Mechanical Ventilator 35.00 12/14/18 10:52 102 16 99 35 12/14/18 10:00 101 16 100/43 (62) 98 Mechanical Ventilator 35.00 12/14/18 09:00 98 15 104/50 (68) 98 Mechanical Ventilator 35.00 12/14/18 08:30 Mechanical Ventilator 35.00 12/14/18 08:13 98.5 12/14/18 08:00 Mechanical Ventilator 50 12/14/18 08:00 91 14 112/49 (70) 100 Mechanical Ventilator 50.00 12/14/18 07:00 92 12/14/18 07:00 91 13 132/54 (80) 100 Mechanical Ventilator 50.00 12/14/18 06:48 91 14 100 50 12/14/18 06:25 89 14 131/56 (81) 100 Mechanical Ventilator 50.00 I & O 12/15/18 07:00 Intake Total 4488 ml Output Total 1680 ml Balance 2808 ml Height & Weight Height: 5'0.00" Weight: 130lbs. 5.0oz. 59.512227tz; 20.6 BMI Method:Stated General Appearance: Other (sedated on ventilator) HEENT: Normal ENT Inspection Neck: Supple Respiratory: Decreased Breath Sounds, Wheezing Cardiovascular: Regular Rate, Rhythm Capillary Refill: Less Than 3 Seconds Gastrointestinal: soft, abnormal bowel sounds, other (dressings dry and in place with ostomy in place ) Extremity: No Pedal Edema Neurologic/Psychiatric: Other (sedated) Skin: Warm/Dry Results Lab Laboratory Tests 12/13/18 12:42 12/13/18 16:40 12/13/18 20:20 12/14/18 00:15 12/14/18 04:40 12/15/18 03:15 Assessment/Plan Assessment/Plan Acute Respiratory failure -Continue ventilator -Will start weaning vent. Pt has a small 6.5 ET tube which my complicate weaning. -D/C propofol start Precedex Severe abdominal pain with guarding and rebound tenderness s/p acute abdomen secondary to toxic megacolon and ischemia -Dr. Yates is following Severe sepsis with septic shock - [place] culture pending -Levophed -Continue Merrem COPDAE -Vapotherm/BiPAP PRN -titrate oxygen- pt is currently on Vapotherm high flow Atelectasis with pneumonia -Merrem , Levaquin ARF -monitor Anxiety HTN GREGOR JOSEPH DO Dec 15, 2018 06:27
[2018-12-15] MEDS: RT-ADVAIR HFA 115/21 MCG PER PUFF IH SCH ×2 (06:40→18:24)
[2018-12-15] MEDS: ARTIFICAL TEARS 0.4 ML UNIT DOSE (REFRESH PLUS) OU SCH ×3 (07:38→21:16)
[2018-12-15] MEDS: PANTOPRAZOLE 40 MG (PROTONIX) VIAL IV SCH (07:38)
--- NOTE | 2018-12-15 07:45 | Diagnostic Imaging Report ---
EXAM: CHEST 1 VIEW, AP/PA ONLY INDICATION: Rapid response. Respiratory failure. COMPARISON: Chest radiograph 12/14/2018. FINDINGS: Normal heart size and central pulmonary vascularity. Stable scattered scarring, greatest in the lung apices. New airspace opacification of the right lung base. Left pleural effusion or thickening. No pneumothorax. ETT tip at the level of clavicles. Calcified aorta. NG tube tip overlying stomach with side port at the GE junction. Right IJ CVC tip upper SVC. IMPRESSION: 1. Support lines in stable position. 2. Small new airspace opacity in the right lung base. Dictated by: Dictated on workstation # [id number]
--- NOTE | 2018-12-15 07:58 | Cardiology Progress Note ---
Subjective Date Seen by Provider: Dec 15, 2018 Time Seen by Provider: 07:54 Subjective/Events-last exam patient is sedated and intubated. Review of Systems General: Other (unable to provide BRYAN) Focused Exam Lactate Level 12/13/18 20:20: Lactic Acid Level 0.95 12/14/18 00:15: Lactic Acid Level 0.91 12/14/18 04:40: Lactic Acid Level 1.27 Objective-Cardiology Exam Last Set of Vital Signs Vital Signs 12/15/18 12/15/18 12/15/18 12/15/18 12/15/18 04:00 06:00 06:40 06:50 07:00 Temp 97.8 Pulse 101 Resp 16 B/P (MAP) 94/48 (63) Pulse Ox 94 O2 Delivery Mechanical Ventilator O2 Flow Rate 25.00 FiO2 25 Capillary Refill : Less Than 3 SecondsLess Than 3 Seconds I&O Intake and Output 12/15/18 00:00 Intake Total 7892 ml Output Total 1525 ml Balance 6367 ml Intake Oral 0 ml IV Total 7818 ml Tube Feeding 74 ml Output Urine Total 1525 ml # Bowel Movements 1 General: Severe Distress, Other (sedated and intubated) HEENT: Atraumatic Neck: No Thyromegaly Lungs: Other (intubated with bilateral rhonchi) Heart: Regular Rate, Normal S1, Normal S2, No Murmurs Abdomen: No Masses, Other (diminished bowel sounds) Extremities: No Clubbing, No Cyanosis, No Tenderness/Swelling, Other (upper and lower extremity edema) Skin: No Rashes Neuro: Other (sedated and intubated) Psych/Mental Status: Other (sedated and intubated) Results Lab Laboratory Tests 12/15/18 03:15 A/P-Cardiology Admission Diagnosis non-ST elevation myocardial infarction infarction Acute respiratory failure Toxic megacolon Acute renal failure Assessment/Plan Status post surgery for toxic megacolon and ischemic bowel on 12/14/18 Ac on chronic resp failure due to ac exac of COPD and ac giron CHF Marked anemia of undetermined etiology, followed and treated by the [facility], s/ p transfusion Ac NSTEMI, but card cath of 12/06/18 shows only minimal CAD and elevated LVEDP. Cath in 2008, following NSTEMI, had also not shown any significant CAD, has been followed by Dr. Soto S/P non-syncopal fall on 12-05-18 resulting in multiple abrasions Chronic kidney disease, stage 3, with some contrast nephropathy post card cath of 12/06/18 TIA on Mar 08 2018 for which she was seen in the ED Severe chronic obstructive pulmonary disease due to prior tobaccoism. Tobaccoism that she quit in 2005. H/O cardiomyopathy with an ejection fraction of 30%, both ischemic and non- ischemic per cardiac catheterization from December 2008. Most recent echocardiogram of May 2017 showed LVEF 55-60%. Mild to mod AoR, TR, and MR. Diastolic dysfunction. Palpitations, probably related to known paroxysmal supraventricular tachycardia/ atrial fibrillation, currently controlled, patient is not receiving anticoagulation at this point Severe anxiety, currently controlled. Osteoporosis and degenerative joint disease Gastroesophageal reflux. H/O intermittent congestive heart failure due to diastolic and systolic dysfunction of the left ventricle, currently controlled. Hyperlipidemia, well controlled on therapy with simvastatin. H/o left cataract surgery. Mild ascending aortic aneurysm measuring 4.2 cm found incidentally on a CT scan or 07/10/[address] Christine Morales nodules being followed by Dr King Carotid u/s of 04/19/18: less than 40% ROSY, 50-60% LICA stenoses Diagnosis of hypothyroidism in April 2018, managed by Dr Paz, but she has been noncompliant with thyroid replacement therapy Clinical Quality Measures DVT/VTE Risk/Contraindication: Risk Factor Score Per Nursin RFS Level Per Nursing on Admit: 3=High CARLOS SMITH MD Dec 15, 2018 07:58
[2018-12-15] MEDS: LORazepam 1 MG (ATIVAN) TAB PO SCH ×3 (08:08→21:17)
[2018-12-15] MEDS: ASPIRIN E.C. 81 MG (ECOTRIN) TAB PO SCH ×2 (08:08→08:41)
[2018-12-15] MEDS: SENNA W/DOCUSATE (SENOKOT S) TABLET PO SCH ×3 (08:08→21:17)
[2018-12-15] MEDS: DILTIAZEM 120 MG (CARDIZEM CD) CAP PO SCH ×2 (08:08→08:41)
[2018-12-15] MEDS: LOSARTAN 25 MG (COZAAR) TAB PO SCH (08:08)
[2018-12-15] MEDS: DIGOXIN 62.5 MCG (LANOXIN) TAB PO SCH ×2 (08:08→08:41)
[2018-12-15] MEDS: DEXMEDETOMIDINE INJECTION 200 MCG in NS (IVPB) 50 ML IV SCH ×2 (08:26→22:14)
[2018-12-15] MEDS: MEROPENEM 500 MG/SWFI 10 ML IV PUSH IV SCH ×4 (08:42→21:16)
[2018-12-15] MEDS: NOREPINEPHRINE 4 MG in NS (IVPB) 250 ML IV SCH (09:32)
--- NOTE | 2018-12-15 10:12 | Anesthesia-General Post-Op ---
General Patient Condition Mental Status/LOC: Same as Preop Cardiovascular: Satisfactory Nausea/Vomiting: Absent Respiratory: Unsatisfactory Pain: Controlled Complications: Absent Post Op Complications Complications None Follow Up Care/Instructions Patient Instructions None needed. Anesthesia/Patient Condition Patient Condition patient on vent and vasopressors. SHERRIE BERNAL CRNA Dec 15, 2018 10:11
--- NOTE | 2018-12-15 10:59 | Progress Note-Standard ---
Standard Progress Note Progress Notes/Assess & Plan Date Seen by a Provider: Dec 15, 2018 Time Seen by a Provider: 09:45 Progress/Assessment & Plan Called by the nurse regarding increased abdominal distention, very severe tenderness and hypotension requiring vasopressor support. On examination, she had evidence of diffuse peritonitis and therefore expiratory laparotomy was felt to be appropriate. 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 I have reviewed the operative details which may involve total colectomy and ileostomy. I've also highlighted increased morbidity, potential for mortality and postoperative complications of intra-abdominal abscess, bleeding etc. The patient and her sons, who happened to be at the bedside, appeared to comprehend the reality of the situation and express their consented to proceed with surgery, that would be conducted emergently. 12/14/18:hemodynamically stable. Levophed being weaned. Urine output satisfactory. White cell count decreasing. Hemoglobin stable. Ileostomy healthy. We'll try early enteral nutrition. Vent weaning to commence in 24-48 hours. continues to improve. Vent weaning expected. Ileostomy pink and healthy. Final Diagnosis toxic megacolon with ischemia. Focused Exam Lactate Level 12/13/18 20:20: Lactic Acid Level 0.95 12/14/18 00:15: Lactic Acid Level 0.91 12/14/18 04:40: Lactic Acid Level 1.27 DIVYA PEREZ MD Dec 15, 2018 10:59
[2018-12-15 11:45] LABS: ABG OXYGEN SATURATION 99 % (94-100); ABG PCO2 36 MMHG (35-45); ABG PH 7.39 (7.37-7.43); ABG PO2 103 MMHG (79-93); ABG TCO2 22.2 MMOL/L (21.0-31.0)
[2018-12-15 11:51] LABS: ALLENS TEST YES-POS; INSPIRED O2 25; PATIENT TEMP 99.7; VENTILATOR YES
--- NOTE | 2018-12-15 12:51 | Progress Note (SOAP) ---
Subjective Date Seen by a Provider: Dec 15, 2018 Time Seen by a Provider: 09:45 Subjective/Events-last exam Fwup Acute on Chronic Respiratory Failure, Severe Sepsis, toxic megacolon--S/P colectomy, pneumonia, COPD with acute exacerbation, UTI, fall with left arm skin tear and knee abrasions, anemia, CHF with ongoing elevation in troponin-I. Still on ventilator but going to start weaning per pulmonology. Focused Exam Lactate Level 12/13/18 20:20: Lactic Acid Level 0.95 12/14/18 00:15: Lactic Acid Level 0.91 12/14/18 04:40: Lactic Acid Level 1.27 Objective Exam Vital Signs Date Time Temp Pulse Resp B/P (MAP) Pulse Ox O2 Delivery O2 Flow Rate FiO2 12/15/18 11:07 95 Mechanical Ventilator 25 12/15/18 11:06 98.4 12/15/18 11:00 112 16 108/53 (71) 94 Mechanical Ventilator 25.00 12/15/18 10:39 110 18 95 25 12/15/18 10:35 110 19 95 25 12/15/18 10:00 109 20 120/57 (78) 96 Mechanical Ventilator 25.00 12/15/18 09:00 108 18 123/59 (80) 95 Mechanical Ventilator 25.00 12/15/18 08:43 108 17 96 25 12/15/18 08:09 98.2 12/15/18 08:00 103 16 98/49 (65) 95 Mechanical Ventilator 25.00 12/15/18 08:00 95 Mechanical Ventilator 25 12/15/18 07:00 99 16 113/52 (72) 94 Mechanical Ventilator 25.00 12/15/18 07:00 101 12/15/18 06:50 94 Mechanical Ventilator 25 12/15/18 06:40 98 16 94 25 12/15/18 06:00 98 16 94/48 (63) 97 Mechanical Ventilator 25.00 12/15/18 05:00 106 19 107/50 (69) 98 Mechanical Ventilator 30.00 12/15/18 05:00 105 18 99 30 12/15/18 04:00 98 Mechanical Ventilator 30.00 12/15/18 04:00 97.8 12/15/18 04:00 105 16 98/47 (64) 97 Mechanical Ventilator 30.00 12/15/18 03:00 101 16 105/46 (65) 99 Mechanical Ventilator 30.00 12/15/18 02:59 100 16 99 30 12/15/18 02:00 101 16 97/50 (66) 99 Mechanical Ventilator 30.00 12/15/18 01:20 100 29 100/46 (64) 99 Mechanical Ventilator 30.00 12/15/18 01:00 101 12/15/18 00:27 101 16 98 30 12/15/18 00:00 101 16 98/50 (66) 98 Mechanical Ventilator 30.00 12/15/18 00:00 98.8 12/15/18 00:00 98 Mechanical Ventilator 30.00 12/14/18 23:10 101 15 101/50 (67) 98 Mechanical Ventilator 30.00 12/14/18 23:00 101 16 94/44 (61) 97 Mechanical Ventilator 30.00 12/14/18 22:21 100 16 97 30 12/14/18 22:00 97 15 99/49 (66) 97 Mechanical Ventilator 30.00 12/14/18 21:00 99 15 101/50 (67) 97 Mechanical Ventilator 30.00 12/14/18 20:01 101 16 97 30 12/14/18 20:00 97.0 12/14/18 20:00 98 Mechanical Ventilator 30.00 12/14/18 20:00 101 16 100/48 (65) 97 Mechanical Ventilator 30.00 12/14/18 19:00 105 12/14/18 19:00 105 16 115/67 (83) 97 Mechanical Ventilator 30.00 12/14/18 18:31 98 16 98 30 12/14/18 18:00 96 16 103/50 (67) 98 Mechanical Ventilator 30.00 12/14/18 17:00 96 15 107/56 (73) 97 Mechanical Ventilator 30.00 12/14/18 16:00 97 16 108/50 (69) 97 Mechanical Ventilator 30.00 12/14/18 15:40 99.0 12/14/18 15:21 Mechanical Ventilator 30 12/14/18 15:08 117/66 12/14/18 15:00 105 16 89/47 (61) 96 Mechanical Ventilator 30.00 12/14/18 14:37 104 16 95 30 12/14/18 14:00 103 16 101/53 (69) 96 Mechanical Ventilator 30.00 12/14/18 13:00 104 12/14/18 13:00 104 15 99/45 (63) 99 Mechanical Ventilator 30.00 I & O 12/15/18 07:00 Intake Total 4488 ml Output Total 1680 ml Balance 2808 ml Capillary Refill : Less Than 3 SecondsLess Than 3 Seconds General Appearance: Other (on vent--will move her head to questions) Respiratory: Lungs Clear, Decreased Breath Sounds Cardiovascular: Regular Rate, Rhythm Gastrointestinal: soft, abnormal bowel sounds, other (dry dressing in place-- ostomy pink but no output in ostomy bag) Extremity: Swelling (with ecchymosis) Neurologic/Psychiatric: Other (on ventilator) Skin: Ecchymosis Results Lab Laboratory Tests 12/14/18 14:38: Lab Scanned Report Transfusion Reaction Form 12/14/18 17:17: Glucometer 97 12/14/18 18:37: Troponin I 0.519*H 12/15/18 00:40: Troponin I 0.587*H 12/15/18 00:42: Glucometer 121H 12/15/18 03:15: White Blood Count 30.4*H, Red Blood Count 3.05L, Hemoglobin 8.9#L, Hematocrit 26L, Mean Corpuscular Volume 86, Mean Corpuscular Hemoglobin 29, Mean Corpuscular Hemoglobin Concent 34, Red Cell Distribution Width 19.4H, Platelet Count 168, Mean Platelet Volume 9.9, Neutrophils (%) (Auto) 95H, Lymphocytes (% ) (Auto) 2L, Monocytes (%) (Auto) 3, Eosinophils (%) (Auto) 0, Basophils (%) ( Auto) 0, Neutrophils # (Auto) 29.0H, Lymphocytes # (Auto) 0.5L, Monocytes # ( Auto) 0.9, Eosinophils # (Auto) 0.0, Basophils # (Auto) 0.0, Sodium Level 146H, Potassium Level 4.0, Chloride Level 114H, Carbon Dioxide Level 21, Anion Gap 11 , Blood Urea Nitrogen 66H, Creatinine 1.58H, Estimat Glomerular Filtration Rate 32, BUN/Creatinine Ratio 42, Glucose Level 111H, Calcium Level 7.8L, Phosphorus Level 4.6, Magnesium Level 2.1 12/15/18 03:20: Blood Gas Puncture Site L RAD, Blood Gas Patient Temperature 97.8, Arterial Blood pH 7.37, Arterial Blood Partial Pressure CO2 38, Arterial Blood Partial Pressure O2 87, Arterial Blood HCO3 21L, Arterial Blood Total CO2 22.5, Arterial Blood Oxygen Saturation 98, Arterial Blood Base Excess -3.3L, Nahid Test YES-POS, Blood Gas Ventilator Setting YES, Blood Gas Inspired Oxygen 30% 12/15/18 11:36: Blood Gas Puncture Site RR, Blood Gas Patient Temperature 99.7, Arterial Blood pH 7.39, Arterial Blood Partial Pressure CO2 36, Arterial Blood Partial Pressure O2 103H, Arterial Blood HCO3 21L, Arterial Blood Total CO2 22.2, Arterial Blood Oxygen Saturation 99, Arterial Blood Base Excess -3.0L, Nahid Test YES-POS, Blood Gas Ventilator Setting YES, Blood Gas Inspired Oxygen 25 12/15/18 11:41: Glucometer 109 Microbiology 12/13/18 Blood Culture - Preliminary, Resulted No growth 12/05/18 Urine Culture - Final, Complete See Report Assessment/Plan Assessment/Plan Assess & Plan/Chief Complaint 1. 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 Acute Exacerbation of COPD--on weaning dose of solumedrol 3. RLL Pneumonia--cont Maxipime 4. Fall with left wrist skin tear and left knee contusion--wounds dressed 5. Thrush--add diflucan 6. Acute Renal Insufficiency--hydrate and monitor Cr 7. Acute on Chronic Respiratory Failure--sedated on ventilator, going to try to start weaning today 8. Acute on Chronic Diastolic CHF--on IV lasix and diuresing well 9. Acute on Chronic Anemia--S/P transfusion, monitor H/H 10. Severe Sepsis--on maxipime and sepsis protocol 11. Condition guarded Clinical Quality Measures Admission Status Admission Dx 1. Acute non STEMI--admit to cardiac in ICU on Brilinta and Heparin with cardiac catheterization by cardiology 2. Hypertension--resume home meds 3. COPD--oxygen, nebulizer treatments 4. UTI--started on Bactrim 5. Chronic Anemia--monitor H/H 6. Left wrist skin tear and abrasions from fall--dressed and will monitor for bleeding with blood thinners DVT/VTE Risk/Contraindication: Risk Factor Score Per Nursin RFS Level Per Nursing on Admit: 3=High MELODY MCGEE DO Dec 15, 2018 12:51
[2018-12-15] MEDS: UMECLIDINIUM BROMIDE (INCRUSE ELLIPTA) 7'S IH SCH (15:00)
[2018-12-15] MEDS: FAMOTIDINE 20 MG (PEPCID) TABLET PO SCH (15:04)
--- NOTE | 2018-12-15 16:05 | NUR ---
Pt resting with eyes closed: offered prayer at bedside for spiritual and physical comfort.
[2018-12-15 17:59] LABS: ABG BASE EXCESS -2.4 MMOL/L (-2.5-2.5); ABG OXYGEN SATURATION 96 % (94-100); ABG PCO2 36 MMHG (35-45); ABG PO2 75 MMHG (79-93); ABG TCO2 22.5 MMOL/L (21.0-31.0)
[2018-12-15] MEDS: ENOXAPARIN 30 MG/0.3 ML (LOVENOX) SYR SC SCH (18:00)
[2018-12-15] MEDS: FLUCONAZOLE IV SCH ×2 (18:00)
[2018-12-15 18:02] LABS: ALLENS TEST POSITIVE; INSPIRED O2 PS 15/5 25%; PATIENT TEMP 100.1; VENTILATOR NO
--- NOTE | 2018-12-15 18:09 | NUR ---
ABG RESULTS GIVEN TO DR JOSEPH. NEW ORDERS RECEIVED TO KEEP SEDATION OFF AND RESUME AC MODE ON VENT W/ PREVIOUS SETTINGS. RT NOTIFIED.
[2018-12-15] MEDS: hydrOXYzine (ATARAX) 10 MG TAB PO SCH (21:16)
[2018-12-15] MEDS: MIRTAZAPINE 15 MG (REMERON) TAB PO SCH (21:17)
[2018-12-15] MEDS: ATORVASTATIN 40 MG (LIPITOR) TABLET PO SCH (21:17)
[2018-12-16] VITALS (29 sets, daily range): BP systolic 94–165; BP diastolic 44–97
[2018-12-16] MEDS: inSUlin ASPART (NovoLOG) 1 UNIT/0.01 ML (CHARGE PER UNIT) SQ SCH ×5 (00:44→23:58)
[2018-12-16] MEDS: ACETAMINOPHEN 325 MG TABLET PO SCH ×4 (01:33→16:08)
[2018-12-16] MEDS: NYSTATIN ORAL SUSP 5 ML UDC PO SCH ×3 (01:34→17:16)
[2018-12-16] MEDS: LACTOBACILLUS ACIDOPHILUS (PROBIOTIC) CAPSULE PO SCH ×3 (01:34→16:06)
[2018-12-16] MEDS: RT-ALBUTEROL SULF 2.5 MG/3 ML PRE-MIX VIAL INH SCH ×6 (02:09→21:35)
[2018-12-16 03:31] LABS: ABG BASE EXCESS -2.1 MMOL/L (-2.5-2.5); ABG OXYGEN SATURATION 72 % (94-100); ABG PCO2 39 MMHG (35-45); ABG PH 7.38 (7.37-7.43); ABG TCO2 23.6 MMOL/L (21.0-31.0)
[2018-12-16 03:33] LABS: ABG PO2 37 MMHG (79-93)
[2018-12-16 03:34] LABS: ALLENS TEST YES-POS; INSPIRED O2 25%; VENTILATOR YES
[2018-12-16 03:34] LABS: BASOPHILS % (AUTO) 0 % (0-10); EOSINOPHILS % (AUTO) 0 % (0-10); HEMATOCRIT 25 % (35-52); HEMOGLOBIN 8.2 G/DL (11.5-16.0); LYMPHOCYTES # (AUTO) 0.5 X 10^3 (1.0-4.0); LYMPHOCYTES % (AUTO) 2 % (12-44); MEAN CORPUSCULAR HEMOGLOBIN 29 PG (25-34); MEAN CORPUSCULAR HGB CONC 33 G/DL (32-36); MEAN CORPUSCULAR VOLUME 87 FL (80-99); MEAN PLATELET VOLUME 9.7 FL (7.4-10.4); MONOCYTES % (AUTO) 3 % (0-12); NEUTROPHILS # (AUTO) 27.6 X 10^3 (1.8-7.8); NEUTROPHILS % (AUTO) 95 % (42-75); PLATELET COUNT 152 10^3/uL (130-400)
[2018-12-16 03:35] LABS: PATIENT TEMP 97.4
[2018-12-16] MEDS: LACTATED RINGERS 1,000 ML IV SCH (03:37)
[2018-12-16] MEDS: fentaNYL INJECTION 100 MCG/2 ML AMP IV PRN (03:37)
[2018-12-16 03:49] LABS: CALCIUM 8.4 MG/DL (8.5-10.1); CREATININE SERUM 1.49 MG/DL (0.60-1.30); MAGNESIUM 2.3 MG/DL (1.8-2.4); PHOSPHORUS 4.6 MG/DL (2.3-4.7); POTASSIUM 3.9 MMOL/L (3.6-5.0)
[2018-12-16 04:01] LABS: ABG BASE EXCESS -2.7 MMOL/L (-2.5-2.5); ABG OXYGEN SATURATION 98 % (94-100); ABG PCO2 33 MMHG (35-45); ABG PH 7.42 (7.37-7.43); ABG PO2 93 MMHG (79-93); ABG TCO2 22.2 MMOL/L (21.0-31.0)
[2018-12-16 04:03] LABS: ALLENS TEST YES-POS; INSPIRED O2 25%; PATIENT TEMP 97.4; VENTILATOR YES
[2018-12-16] MEDS: MAGNESIUM 1 GM/100 ML IVPB 100 ML IV SCH (04:58)
[2018-12-16] MEDS: POTASSIUM CL 10MEQ/50ML IVPB 50 ML IV SCH (04:58)
[2018-12-16] MEDS: KCL 20 MEQ TAB (K-DUR) PO SCH (04:58)
[2018-12-16] MEDS ORDERED: D5 1/2 NS 1000 ML IV SOLUTION 1,000 ML IV ONE (05:21)
--- NOTE | 2018-12-16 05:25 | Pulmonary Progress Note ---
Subjective Time Seen by a Provider: 05:21 Subjective/Events-last exam PT is now awake on vent answering questions. She did well with weaning yesterday however never fully woke up so she stayed on vent. Sepsis Event Evaluation Height, Weight, BMI Height: 5'0.00" Weight: 130lbs. 5.0oz. 59.189299ax; 20.6 BMI Method:Stated Focused Exam Lactate Level 12/13/18 20:20: Lactic Acid Level 0.95 12/14/18 00:15: Lactic Acid Level 0.91 12/14/18 04:40: Lactic Acid Level 1.27 Exam Exam Vital Signs Date Time Temp Pulse Resp B/P (MAP) Pulse Ox O2 Delivery O2 Flow Rate FiO2 12/16/18 04:28 92 16 98 25 12/16/18 04:00 96 Mechanical Ventilator 25 12/16/18 04:00 97.4 12/16/18 03:00 80 15 111/52 (71) 97 Mechanical Ventilator 25.00 12/16/18 02:09 78 16 97 25 12/16/18 02:00 79 15 115/51 (72) 97 Mechanical Ventilator 25.00 12/16/18 01:00 78 12/16/18 01:00 78 16 104/48 (66) 97 Mechanical Ventilator 25.00 12/16/18 00:06 79 16 96 25 12/16/18 00:00 80 16 114/49 (70) 96 Mechanical Ventilator 25.00 12/16/18 00:00 97.9 12/16/18 00:00 96 Mechanical Ventilator 25 12/15/18 23:00 86 16 118/50 (72) 97 Mechanical Ventilator 25.00 12/15/18 22:30 84 16 61/35 (44) 97 Mechanical Ventilator 25.00 12/15/18 22:12 85 16 99 25 12/15/18 22:10 101 22 113/46 (68) 100 Mechanical Ventilator 25.00 12/15/18 22:00 90 14 89/42 (58) 95 Mechanical Ventilator 25.00 12/15/18 21:00 103 16 108/53 (71) 98 Mechanical Ventilator 25.00 12/15/18 20:15 106 19 97 25 12/15/18 20:00 98 Mechanical Ventilator 25 12/15/18 20:00 103 29 117/55 (75) 94 Mechanical Ventilator 25.00 12/15/18 19:49 99.4 12/15/18 19:00 106 12/15/18 19:00 106 14 120/52 (74) 97 Mechanical Ventilator 25.00 12/15/18 18:25 112 19 98 25 12/15/18 18:00 112 18 130/67 (88) 97 Mechanical Ventilator 25.00 12/15/18 17:00 101 13 127/56 (79) 95 Mechanical Ventilator 25.00 12/15/18 16:00 101 15 113/49 (70) 95 Mechanical Ventilator 25.00 12/15/18 15:03 96 Mechanical Ventilator 25 12/15/18 15:02 98.4 12/15/18 15:00 103 15 102/53 (69) 96 Mechanical Ventilator 25.00 12/15/18 15:00 101 15 96 25 12/15/18 14:00 104 14 124/54 (77) 96 Mechanical Ventilator 25.00 12/15/18 13:37 103 17 96 25 12/15/18 13:00 104 12/15/18 13:00 102 16 85/51 (62) 94 Mechanical Ventilator 25.00 12/15/18 12:00 107 17 111/51 (71) 94 Mechanical Ventilator 25.00 12/15/18 11:07 95 Mechanical Ventilator 25 12/15/18 11:06 98.4 12/15/18 11:00 112 16 108/53 (71) 94 Mechanical Ventilator 25.00 12/15/18 10:39 110 18 95 25 12/15/18 10:35 110 19 95 25 12/15/18 10:00 109 20 120/57 (78) 96 Mechanical Ventilator 25.00 12/15/18 09:00 108 18 123/59 (80) 95 Mechanical Ventilator 25.00 12/15/18 08:43 108 17 96 25 12/15/18 08:09 98.2 12/15/18 08:00 103 16 98/49 (65) 95 Mechanical Ventilator 25.00 12/15/18 08:00 95 Mechanical Ventilator 25 12/15/18 07:00 99 16 113/52 (72) 94 Mechanical Ventilator 25.00 12/15/18 07:00 101 12/15/18 06:50 94 Mechanical Ventilator 25 12/15/18 06:40 98 16 94 25 12/15/18 06:00 98 16 94/48 (63) 97 Mechanical Ventilator 25.00 I & O 12/16/18 06:59 Intake Total 2314 ml Output Total 1250 ml Balance 1064 ml Height & Weight Height: 5'0.00" Weight: 130lbs. 5.0oz. 59.794730ls; 20.6 BMI Method:Stated General Appearance: Other (on vent--will move her head to questions) HEENT: Normal ENT Inspection Neck: Supple Respiratory: Lungs Clear, Decreased Breath Sounds Cardiovascular: Regular Rate, Rhythm Capillary Refill: Less Than 3 Seconds Gastrointestinal: soft, abnormal bowel sounds, other (dry dressing in place-- ostomy pink but no output in ostomy bag) Extremity: Swelling (with ecchymosis) Neurologic/Psychiatric: Other (on ventilator) Skin: Ecchymosis Results Lab Laboratory Tests 12/15/18 03:15 12/16/18 03:25 Assessment/Plan Assessment/Plan Acute Respiratory failure -Currently on ventilator -Will Extubate patient this AM Severe abdominal pain with guarding and rebound tenderness s/p acute abdomen secondary to toxic megacolon and ischemia -Dr. Yates is following Severe sepsis with septic shock -Levophed - is off -Continue Merrem Hypernatremia -Change to D51/2 NS COPDAE -SVNS Atelectasis with pneumonia -Merrem ARF -monitor Anxiety HTN Weakness -Consult PT/OT GREGOR JOSEPH DO Dec 16, 2018 05:25
[2018-12-16] MEDS: methylPREDNISolone 40 MG/ML (Solu-MEDROL) VIAL IV SCH ×3 (05:29→23:57)
[2018-12-16] MEDS: D5 1/2 NS 1000 ML IV SOLUTION 1,000 ML IV SCH ×2 (05:30→15:23)
--- NOTE | 2018-12-16 06:11 | Diagnostic Imaging Report ---
INDICATION: Respiratory failure. COMPARISON: Earlier same day. FINDINGS: Single frontal radiographic view of the chest was obtained and demonstrates indwelling endotracheal tube with tip at the clavicular heads. Gastric tube is seen with tip in the stomach and side-port at the GE junction. Right internal jugular central venous catheter is also again identified. Lungs show small bibasilar effusions. There is no pneumothorax. There is persistent superior scarring and retraction of the alicia. Cardiac silhouette and pulmonary vasculature are with normal limits. Bony structures show no gross acute abnormalities. IMPRESSION: 1. Small bibasilar effusions, which may be new in the right base. 2. Lines and tubes as above. Dictated by: Dictated on workstation # [id number]
[2018-12-16] MEDS: RT-ADVAIR HFA 115/21 MCG PER PUFF IH SCH ×2 (06:25→18:18)
[2018-12-16] MEDS: UMECLIDINIUM BROMIDE (INCRUSE ELLIPTA) 7'S IH SCH (06:26)
[2018-12-16] MEDS: MEROPENEM 500 MG/SWFI 10 ML IV PUSH IV SCH ×4 (08:36→23:58)
[2018-12-16] MEDS: DIGOXIN 62.5 MCG (LANOXIN) TAB PO SCH (08:36)
[2018-12-16] MEDS: SENNA W/DOCUSATE (SENOKOT S) TABLET PO SCH (08:36)
[2018-12-16] MEDS: PANTOPRAZOLE 40 MG (PROTONIX) VIAL IV SCH (08:36)
[2018-12-16] MEDS: ARTIFICAL TEARS 0.4 ML UNIT DOSE (REFRESH PLUS) OU SCH ×2 (08:36→12:14)
[2018-12-16] MEDS: LORazepam 1 MG (ATIVAN) TAB PO SCH ×2 (08:36→23:57)
[2018-12-16] MEDS: LOSARTAN 25 MG (COZAAR) TAB PO SCH (08:37)
[2018-12-16] MEDS: DILTIAZEM 120 MG (CARDIZEM CD) CAP PO SCH (08:37)
[2018-12-16] MEDS: ASPIRIN E.C. 81 MG (ECOTRIN) TAB PO SCH (08:37)
--- NOTE | 2018-12-16 08:44 | Progress Note-Cardiology ---
Cardiology SOAP Progress Note Subjective: Extubated this morning. No c/o CP. C/O "nose dripping". No c/o palpitations or dyspnea. Objective: I&O/Vital Signs 12/16/18 12/16/18 12/16/18 12/16/18 01:00 01:00 02:00 02:09 Pulse 78 78 79 78 Resp 16 15 16 B/P (MAP) 104/48 (66) 115/51 (72) Pulse Ox 97 97 97 O2 Delivery Mechanical Ventilator Mechanical Ventilator O2 Flow Rate 25.00 25.00 FiO2 25 12/16/18 12/16/18 12/16/18 12/16/18 03:00 04:00 04:00 04:00 Temp 97.4 Pulse 80 87 Resp 15 16 B/P (MAP) 111/52 (71) 94/44 (61) Pulse Ox 97 98 96 O2 Delivery Mechanical Ventilator Mechanical Ventilator Mechanical Ventilator O2 Flow Rate 25.00 25.00 FiO2 25 12/16/18 12/16/18 12/16/18 12/16/18 04:28 05:00 06:00 06:25 Pulse 92 87 106 Resp 16 16 19 B/P (MAP) 113/49 (70) 143/55 (84) Pulse Ox 98 97 95 92 O2 Delivery Mechanical Ventilator Vapotherm Vapotherm O2 Flow Rate 25.00 30.00 15.00 15.00 FiO2 25 30 12/16/18 12/16/18 12/16/18 12/16/18 07:00 07:00 08:00 08:00 Pulse 100 100 108 Resp 16 19 B/P (MAP) 126/56 (79) 147/65 (92) Pulse Ox 93 93 91 O2 Delivery Vapotherm Vapotherm Vapotherm O2 Flow Rate 30.00 15.00 30.00 15.00 15.00 FiO2 30 12/16/18 12/16/18 12/16/18 12/16/18 08:00 08:54 09:00 10:00 Temp 98.4 Pulse 105 85 Resp 30 33 B/P (MAP) 134/54 (80) 118/62 (80) Pulse Ox 91 92 O2 Delivery Vapotherm Vapotherm O2 Flow Rate 20.00 30.00 30.00 15.00 15.00 FiO2 30 12/16/18 12/16/18 12/16/18 12/16/18 10:00 11:00 11:12 11:37 Temp 98.3 Pulse 118 Resp 33 B/P (MAP) 124/97 (106) Pulse Ox 92 91 92 O2 Delivery Vapotherm Vapotherm Vapotherm O2 Flow Rate 20.00 30.00 20.00 20.00 FiO2 30 30 12/16/18 00:00 Intake Total 1050 ml Output Total 700 ml Balance 350 ml Weight (Pounds): 145 Weight (Ounces): 6.0 Weight (Calculated Kilograms): 65.347189 Constitutional: other (Off vent, appears weak and tired, appropriately responsive) Respiratory: chest expansion is symmetric, chest is bilaterally symmetric, rhonchi (scattered), other (prolonged expiratory phase) Cardiovascular: No JVD; tachycardia, S1 and S2, systolic murmur Gastrointestional: other (post op abdomen, ileostomy; we did not attempt any deep palp; bs absent) Extremities: swelling (generalized edema) Neurologic/Psychiatric: grossly intact, power is 5/5 both on sides Skin: No rash, No ulcerations; other (multiple abrasions to knees and arms which are under dressings not removed; multiple bruises to arms and legs bilat) Results/Procedures: Labs Laboratory Tests 12/15/18 17:47: Blood Gas Puncture Site RIGHT RADIAL, Blood Gas Patient Temperature 100.1, Arterial Blood pH 7.40, Arterial Blood Partial Pressure CO2 36, Arterial Blood Partial Pressure O2 75L, Arterial Blood HCO3 21L, Arterial Blood Total CO2 22.5 , Arterial Blood Oxygen Saturation 96, Arterial Blood Base Excess -2.4, Nahid Test POSITIVE, Blood Gas Ventilator Setting NO, Blood Gas Inspired Oxygen PS 15/ 5 25% 12/15/18 18:08: Glucometer 112H 12/16/18 00:39: Glucometer 111H 12/16/18 03:12: Blood Gas Puncture Site LEFT RADIAL, Blood Gas Patient Temperature 97.4, Arterial Blood pH 7.38, Arterial Blood Partial Pressure CO2 39, Arterial Blood Partial Pressure O2 37*L, Arterial Blood HCO3 22L, Arterial Blood Total CO2 23.6 , Arterial Blood Oxygen Saturation 72L, Arterial Blood Base Excess -2.1, Nahid Test YES-POS, Blood Gas Ventilator Setting YES, Blood Gas Inspired Oxygen 25% 12/16/18 03:25: White Blood Count 29.0H, Red Blood Count 2.84L, Hemoglobin 8.2L, Hematocrit 25L , Mean Corpuscular Volume 87, Mean Corpuscular Hemoglobin 29, Mean Corpuscular Hemoglobin Concent 33, Red Cell Distribution Width 19.0H, Platelet Count 152, Mean Platelet Volume 9.7, Neutrophils (%) (Auto) 95H, Lymphocytes (%) (Auto) 2L , Monocytes (%) (Auto) 3, Eosinophils (%) (Auto) 0, Basophils (%) (Auto) 0, Neutrophils # (Auto) 27.6H, Lymphocytes # (Auto) 0.5L, Monocytes # (Auto) 1.0, Eosinophils # (Auto) 0.0, Basophils # (Auto) 0.0, Sodium Level 148H, Potassium Level 3.9, Chloride Level 116H, Carbon Dioxide Level 21, Anion Gap 11, Blood Urea Nitrogen 63H, Creatinine 1.49H, Estimat Glomerular Filtration Rate 34, BUN/ Creatinine Ratio 42, Glucose Level 105, Calcium Level 8.4L, Phosphorus Level 4.6 , Magnesium Level 2.3 12/16/18 03:47: Blood Gas Puncture Site RIGHT RADIAL, Blood Gas Patient Temperature 97.4, Arterial Blood pH 7.42, Arterial Blood Partial Pressure CO2 33L, Arterial Blood Partial Pressure O2 93, Arterial Blood HCO3 21L, Arterial Blood Total CO2 22.2, Arterial Blood Oxygen Saturation 98, Arterial Blood Base Excess -2.7L, Nahid Test YES-POS, Blood Gas Ventilator Setting YES, Blood Gas Inspired Oxygen 25% 12/16/18 12:13: Glucometer 186H Microbiology 12/13/18 Blood Culture - Preliminary, Resulted No growth 12/05/18 Urine Culture - Final, Complete See Report A/P: Assessment: Surgery for toxic megacolon and ischemic bowel on 12/14/18 - s/p ileostomy Ac on chronic resp failure due to ac exac of COPD and ac giron CHF Marked anemia of undetermined etiology, followed and treated by the [facility], s/ p transfusion Ac NSTEMI, but card cath of 12/06/18 shows only minimal CAD and elevated LVEDP. Cath in 2008, following NSTEMI, had also not shown any significant CAD S/P non-syncopal fall on 12-05-18 resulting in multiple abrasions Chronic kidney disease, stage 3, with some contrast nephropathy post card cath of 12/06/18 TIA on Mar 08 2018 for which she was seen in the ED Severe chronic obstructive pulmonary disease due to prior tobaccoism. Tobaccoism that she quit in 2005. H/O cardiomyopathy with an ejection fraction of 30%, both ischemic and non- ischemic per cardiac catheterization from December 2008. Most recent echocardiogram of May 2017 showed LVEF 55-60%. Mild to mod AoR, TR, and MR. Diastolic dysfunction. Palpitations, probably related to known paroxysmal supraventricular tachycardia/ atrial fibrillation, currently controlled. The patient is considered intolerant to warfarin for several reasons, including episodes of marked epistaxis and hemoptysis, even without warfarin therapy. Also, she is prone to falls, given her generalized frail status. She refuses any oral anticoagulants; agrees only to aspirin for stroke prophylaxis Severe anxiety, currently controlled. Osteoporosis and degenerative joint disease Gastroesophageal reflux. H/O intermittent congestive heart failure due to diastolic and systolic dysfunction of the left ventricle, currently controlled. Hyperlipidemia, well controlled on therapy with simvastatin. H/o left cataract surgery. Mild ascending aortic aneurysm measuring 4.2 cm found incidentally on a CT scan or 07/10/[address] Christine Morales nodules being followed by Dr King Carotid u/s of 04/19/18: less than 40% ROSY, 50-60% LICA stenoses Diagnosis of hypothyroidism in April 2018, managed by Dr Paz, but she has been noncompliant with thyroid replacement therapy Plan: * Complex management due to multiple comorbidities * Monitor labs closely * Give IV Lasix today * Oral medications resumed today including CCB and Dig * Prognosis guarded Physician Assessment Physician Assessment Off vent. No cp or palp or syncope. Persistent gen malaise and weakness Lungs: fair air entry, prolonged exp Cor: reg Ext: no c/c/e A&R * As documented in our note above that I updated (italics) and as noted below * Continue current regimen * Monitor labs closely KEE DAMON Dec 16, 2018 08:44 CASSIE ARANA [facility] Dec 16, 2018 12:27
--- NOTE | 2018-12-16 08:44 | Diagnostic Imaging Report ---
INDICATION: Bowel obstruction. COMPARISON: 12/15/2018. FINDINGS: Single frontal radiographic view of the chest was obtained and demonstrates indwelling endotracheal tube with tip below the clavicular heads and above the marie. Other lines and tubes are stable as well. Cardiac silhouette and pulmonary vasculature is stable. Lungs continue to show biapical scarring with retraction of the alicia. There is hyperinflation and persistent blunting of the left lateral costophrenic angle. Effusion described on prior exam in the right base is not apparent and may have been on the basis of blunting of the costophrenic angle on prior study. There is no pneumothorax. Bony structures show no gross acute abnormalities. IMPRESSION: 1. Lines and tubes as above. 2. Background of emphysematous disease. 3. Small effusion versus blunting of the lateral costophrenic angle. 4. No large effusion is seen in the right base on today's exam. Appearance on prior study may have been on the basis of pleural thickening. Dictated by: Dictated on workstation # [id number]
[2018-12-16] MEDS ORDERED: FUROSEMIDE 40 MG/4 ML INJ (LASIX) IVP NR (08:45)
--- NOTE | 2018-12-16 09:05 | Progress Note-Standard ---
Standard Progress Note Progress Notes/Assess & Plan Date Seen by a Provider: Dec 16, 2018 Time Seen by a Provider: 09:05 Progress/Assessment & Plan Called by the nurse regarding increased abdominal distention, very severe tenderness and hypotension requiring vasopressor support. On examination, she had evidence of diffuse peritonitis and therefore expiratory laparotomy was felt to be appropriate. 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 I have reviewed the operative details which may involve total colectomy and ileostomy. I've also highlighted increased morbidity, potential for mortality and postoperative complications of intra-abdominal abscess, bleeding etc. The patient and her sons, who happened to be at the bedside, appeared to comprehend the reality of the situation and express their consented to proceed with surgery, that would be conducted emergently. 12/14/18:hemodynamically stable. Levophed being weaned. Urine output satisfactory. White cell count decreasing. Hemoglobin stable. Ileostomy healthy. We'll try early enteral nutrition. Vent weaning to commence in 24-48 hours. continues to improve. Vent weaning expected. Ileostomy pink and healthy. extubated this morning. Appears to be comfortable and interactive. Midline wound reasonably healthy. No fascial dehiscence. Wound VAC would be placed today. NG tube would be removed and clear liquids allowed Final Diagnosis toxic megacolon with early ischemia Focused Exam Lactate Level 12/13/18 20:20: Lactic Acid Level 0.95 12/14/18 00:15: Lactic Acid Level 0.91 12/14/18 04:40: Lactic Acid Level 1.27 DIVYA PEREZ MD Dec 16, 2018 09:05
--- NOTE | 2018-12-16 09:18 | Physical Therapy Evaluation ---
PT Evaluation-General Medical Diagnosis Admission Date Dec 05, 2018 at 19:14 Medical Diagnosis: NSTEMI, Fall, Skin Tear Onset Date: Dec 05, 2018 Therapy Diagnosis Therapy Diagnosis: debility Height/Weight Height (Feet): 5 Height (Inches): 0.00 Weight (Pounds): 145 Weight (Ounces): 6.0 Precautions Precautions/Isolations: Fall Prevention, Standard Precautions, Pressure Ulcer Weight Bear Status Right Lower Extremity: Right Full Weight Bearing Left Lower Extremity: Left Full Weight Bearing Referral Physician: Christine Reason for Referral: Evaluation/Treatment Medical History Pertinent Medical History: Arthritis, COPD, GERD, HTN, [place] Current History s/p colon resection with ileostomy Reviewed History: No Social History Home: Single Level Current Living Status: Alone Entry Into Home: Stairs With Railing PT Steps Into Home: 4 Prior/Core FIM Prior Level of Function Therapy Code Descriptions/Definitions Functional [place] Measure: 0=Not Assessed/NA 4=Minimal Assistance 1=Total Assistance 5=Supervision or Setup 2=Maximal Assistance 6=Modified [place] 3=Moderate Assistance 7=Complete [place] Therapy Quality Codes: 6 Independent with activity with or without an assistive device 5 Patient requires set up or clean up by helper. Patient completes activity by themselves 4 Supervision or touching assist (CGA). [place] provide cues , steadying assist 3 The helper provides less than half the effort to complete the activity 2 The helper provides more than half the effort to complete the activity 1 Dependent. The helper does all the effort to complete an activity 7 Patient refused to complete or attempt activity 9 The patient did not perform the activity before the current illness or injury 88 Not attempted due to Medical conditions or safety concerns Functional Abilities and Goals: Independent: Patient completed the activities by him/herself, with or without an assistive device, with no assistance from a helper. Needed Some Help: Patient needed partial assistance from another person to complete activities. Dependent: A helper completed the activities for the patient. Unknown: Not Applicable: Bed Mobility: 6 Transfers (B,C,W/C) (FIM): 6 Gait: 6 Stairs: 6 Indoor Mobility (Ambulation): Independent Stairs: Independent Prior Devices Use: None PT Evaluation-Current Subjective Pt in bed with nurse in room. Pt agrees to PT. Objective Patient Orientation: Person Attachments: Oxygen (vapotherm), Kelley Catheter, IV ROM/Strength ROM Lower Extremities WFL with noted edema Strength Lower Extremities NT on this date Integumentary/Posture Bowel Incontinence: No Bladder Incontinence: Kelley Cath Neuromuscular (Tone, Coordination, Reflexes) severely diminished due to weakness Sensory Vision: Wears Glasses Hand Dominance: Right Sensation Right Lower Extremit: Intact Sensation Left Lower Extremity: Intact Transfers Therapy Code Descriptions/Definitions Functional [place] Measure: 0=Not Assessed/NA 4=Minimal Assistance 1=Total Assistance 5=Supervision or Setup 2=Maximal Assistance 6=Modified [place] 3=Moderate Assistance 7=Complete [place] Assessment/Needs Pt's O2 sat dropped from 92%-81% with passive movements of getting pillows out from under her. RT stated to PT to not get pt up or move her due to her saturation dropping with very minimal movements. Pt has all needs met and is in bed. Nurse notified. Rehab Potential: Poor PT Short Term Goals Short Term Goals Time Frame: Dec 31, 2018 Transfers (B,C,W/C) (FIM): 4 Gait (FIM): 1 Distance (FIM): 1=308-35 ft Gait Distance Comment: 25' Gait Level of Assist: 5 Gait Assistive Device: FWW PT Plan Problem List Problem List: Activity Tolerance, Functional Strength, Safety, Balance, Gait, Transfer, Bed Mobility, ROM Treatment/Plan Treatment Plan: Continue Plan of Care Treatment Plan: Bed Mobility, Education, Functional Activity [place], Functional Strength, Gait, Safety, Therapeutic Exercise, Transfers Treatment Duration: Dec 31, 2018 Frequency: 5 times per week (increase to 6/wk when medically stable) Estimated Hrs Per Day: .25 hour per day Patient and/or Family Agrees t: Yes Discharge Recommendations Therapy D/C Recommendations: Skilled Nursing Placement, Care Home (TCU/NH) Time/GCodes Time In: 849 Time Out: 857 Total Billed Treatment Time: 8 Total Billed Treatment 1 visit EVL 8 min JANI WASSERMAN PT Dec 16, 2018 09:18
--- NOTE | 2018-12-16 09:45 | NUR ---
NG D/C'D PER DR PEREZ. PT TOLERATED WELL.
--- NOTE | 2018-12-16 09:49 | Progress Note (SOAP) ---
Subjective Date Seen by a Provider: Dec 16, 2018 Time Seen by a Provider: 09:47 Subjective/Events-last exam Fwup Acute on Chronic Respiratory Failure, Severe Sepsis, toxic megacolon--S/P colectomy, pneumonia, COPD with acute exacerbation, UTI, fall with left arm skin tear and knee abrasions, anemia, CHF with ongoing elevation in troponin-I. Off ventilator and nurse just pulled NG tube. C/O dry mouth and feels very weak. Denies pain. Focused Exam Lactate Level 12/13/18 20:20: Lactic Acid Level 0.95 12/14/18 00:15: Lactic Acid Level 0.91 12/14/18 04:40: Lactic Acid Level 1.27 Objective Exam Vital Signs Date Time Temp Pulse Resp B/P (MAP) Pulse Ox O2 Delivery O2 Flow Rate FiO2 12/16/18 08:54 20.00 30 12/16/18 08:00 108 19 147/65 (92) 91 Vapotherm 30.00 15.00 12/16/18 07:00 100 12/16/18 07:00 100 16 126/56 (79) 93 Vapotherm 30.00 15.00 12/16/18 06:25 92 Vapotherm 15.00 30 12/16/18 06:00 106 19 143/55 (84) 95 Vapotherm 30.00 15.00 12/16/18 05:00 87 16 113/49 (70) 97 Mechanical Ventilator 25.00 12/16/18 04:28 92 16 98 25 12/16/18 04:00 96 Mechanical Ventilator 25 12/16/18 04:00 87 16 94/44 (61) 98 Mechanical Ventilator 25.00 12/16/18 04:00 97.4 12/16/18 03:00 80 15 111/52 (71) 97 Mechanical Ventilator 25.00 12/16/18 02:09 78 16 97 25 12/16/18 02:00 79 15 115/51 (72) 97 Mechanical Ventilator 25.00 12/16/18 01:00 78 12/16/18 01:00 78 16 104/48 (66) 97 Mechanical Ventilator 25.00 12/16/18 00:06 79 16 96 25 12/16/18 00:00 80 16 114/49 (70) 96 Mechanical Ventilator 25.00 12/16/18 00:00 97.9 12/16/18 00:00 96 Mechanical Ventilator 25 12/15/18 23:00 86 16 118/50 (72) 97 Mechanical Ventilator 25.00 12/15/18 22:30 84 16 61/35 (44) 97 Mechanical Ventilator 25.00 12/15/18 22:12 85 16 99 25 12/15/18 22:10 101 22 113/46 (68) 100 Mechanical Ventilator 25.00 12/15/18 22:00 90 14 89/42 (58) 95 Mechanical Ventilator 25.00 12/15/18 21:00 103 16 108/53 (71) 98 Mechanical Ventilator 25.00 12/15/18 20:15 106 19 97 25 12/15/18 20:00 98 Mechanical Ventilator 25 12/15/18 20:00 103 29 117/55 (75) 94 Mechanical Ventilator 25.00 12/15/18 19:49 99.4 12/15/18 19:00 106 12/15/18 19:00 106 14 120/52 (74) 97 Mechanical Ventilator 25.00 12/15/18 18:25 112 19 98 25 12/15/18 18:00 112 18 130/67 (88) 97 Mechanical Ventilator 25.00 12/15/18 17:00 101 13 127/56 (79) 95 Mechanical Ventilator 25.00 12/15/18 16:00 101 15 113/49 (70) 95 Mechanical Ventilator 25.00 12/15/18 15:03 96 Mechanical Ventilator 25 12/15/18 15:02 98.4 12/15/18 15:00 103 15 102/53 (69) 96 Mechanical Ventilator 25.00 12/15/18 15:00 101 15 96 25 12/15/18 14:00 104 14 124/54 (77) 96 Mechanical Ventilator 25.00 12/15/18 13:37 103 17 96 25 12/15/18 13:00 104 12/15/18 13:00 102 16 85/51 (62) 94 Mechanical Ventilator 25.00 12/15/18 12:00 107 17 111/51 (71) 94 Mechanical Ventilator 25.00 12/15/18 11:07 95 Mechanical Ventilator 25 12/15/18 11:06 98.4 12/15/18 11:00 112 16 108/53 (71) 94 Mechanical Ventilator 25.00 2/7/19 10:39 110 18 95 25 12/15/18 10:35 110 19 95 25 12/15/18 10:00 109 20 120/57 (78) 96 Mechanical Ventilator 25.00 I & O 12/16/18 07:00 Intake Total 2314 ml Output Total 1550 ml Balance 764 ml Capillary Refill : Less Than 3 SecondsLess Than 3 Seconds General Appearance: Mild Distress Neck: Supple Respiratory: Crackles, Decreased Breath Sounds Cardiovascular: Regular Rate, Rhythm, Systolic Murmur Gastrointestinal: soft, abnormal bowel sounds, other (ostomy pink with no output in bag/wound bandages dry) Extremity: Pedal Edema Neurologic/Psychiatric: Alert, Oriented x3 Skin: Warm/Dry, Ecchymosis Results Lab Laboratory Tests 12/15/18 11:36: Blood Gas Puncture Site RR, Blood Gas Patient Temperature 99.7, Arterial Blood pH 7.39, Arterial Blood Partial Pressure CO2 36, Arterial Blood Partial Pressure O2 103H, Arterial Blood HCO3 21L, Arterial Blood Total CO2 22.2, Arterial Blood Oxygen Saturation 99, Arterial Blood Base Excess -3.0L, Nahid Test YES-POS, Blood Gas Ventilator Setting YES, Blood Gas Inspired Oxygen 25 12/15/18 11:41: Glucometer 109 12/15/18 17:47: Blood Gas Puncture Site RIGHT RADIAL, Blood Gas Patient Temperature 100.1, Arterial Blood pH 7.40, Arterial Blood Partial Pressure CO2 36, Arterial Blood Partial Pressure O2 75L, Arterial Blood HCO3 21L, Arterial Blood Total CO2 22.5 , Arterial Blood Oxygen Saturation 96, Arterial Blood Base Excess -2.4, Nahid Test POSITIVE, Blood Gas Ventilator Setting NO, Blood Gas Inspired Oxygen PS 15/ 5 25% 12/15/18 18:08: Glucometer 112H 12/16/18 00:39: Glucometer 111H 12/16/18 03:12: Blood Gas Puncture Site LEFT RADIAL, Blood Gas Patient Temperature 97.4, Arterial Blood pH 7.38, Arterial Blood Partial Pressure CO2 39, Arterial Blood Partial Pressure O2 37*L, Arterial Blood HCO3 22L, Arterial Blood Total CO2 23.6 , Arterial Blood Oxygen Saturation 72L, Arterial Blood Base Excess -2.1, Nahid Test YES-POS, Blood Gas Ventilator Setting YES, Blood Gas Inspired Oxygen 25% 12/16/18 03:25: White Blood Count 29.0H, Red Blood Count 2.84L, Hemoglobin 8.2L, Hematocrit 25L , Mean Corpuscular Volume 87, Mean Corpuscular Hemoglobin 29, Mean Corpuscular Hemoglobin Concent 33, Red Cell Distribution Width 19.0H, Platelet Count 152, Mean Platelet Volume 9.7, Neutrophils (%) (Auto) 95H, Lymphocytes (%) (Auto) 2L , Monocytes (%) (Auto) 3, Eosinophils (%) (Auto) 0, Basophils (%) (Auto) 0, Neutrophils # (Auto) 27.6H, Lymphocytes # (Auto) 0.5L, Monocytes # (Auto) 1.0, Eosinophils # (Auto) 0.0, Basophils # (Auto) 0.0, Sodium Level 148H, Potassium Level 3.9, Chloride Level 116H, Carbon Dioxide Level 21, Anion Gap 11, Blood Urea Nitrogen 63H, Creatinine 1.49H, Estimat Glomerular Filtration Rate 34, BUN/ Creatinine Ratio 42, Glucose Level 105, Calcium Level 8.4L, Phosphorus Level 4.6 , Magnesium Level 2.3 12/16/18 03:47: Blood Gas Puncture Site RIGHT RADIAL, Blood Gas Patient Temperature 97.4, Arterial Blood pH 7.42, Arterial Blood Partial Pressure CO2 33L, Arterial Blood Partial Pressure O2 93, Arterial Blood HCO3 21L, Arterial Blood Total CO2 22.2, Arterial Blood Oxygen Saturation 98, Arterial Blood Base Excess -2.7L, Nahid Test YES-POS, Blood Gas Ventilator Setting YES, Blood Gas Inspired Oxygen 25% Microbiology 12/13/18 Blood Culture - Preliminary, Resulted No growth 12/05/18 Urine Culture - Final, Complete See Report Assessment/Plan Assessment/Plan Assess & Plan/Chief Complaint 1. 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 Acute Exacerbation of COPD--on weaning dose of solumedrol 3. RLL Pneumonia--cont Maxipime 4. Fall with left wrist skin tear and left knee contusion--wounds dressed 5. Thrush--on diflucan 6. Acute Renal Insufficiency--hydrate and monitor Cr 7. Acute on Chronic Respiratory Failure--off ventilator 8. Acute on Chronic Diastolic CHF--on IV lasix and diuresing well 9. Acute on Chronic Anemia--S/P transfusion, monitor H/H 10. Severe Sepsis--on maxipime and sepsis protocol 11. Condition guarded Clinical Quality Measures Admission Status Admission Dx 1. Acute non STEMI--admit to cardiac in ICU on Brilinta and Heparin with cardiac catheterization by cardiology 2. Hypertension--resume home meds 3. COPD--oxygen, nebulizer treatments 4. UTI--started on Bactrim 5. Chronic Anemia--monitor H/H 6. Left wrist skin tear and abrasions from fall--dressed and will monitor for bleeding with blood thinners DVT/VTE Risk/Contraindication: Risk Factor Score Per Nursin RFS Level Per Nursing on Admit: 3=High MELODY MCGEE DO Dec 16, 2018 09:49
--- NOTE | 2018-12-16 13:24 | Occupational Therapy Eval ---
OT Evaluation-General/PLF Medical Diagnosis Admission Date Dec 05, 2018 at 19:14 Medical Diagnosis: NSTEMI, Fall, Skin Tear Onset Date: Dec 05, 2018 Therapy Diagnosis Therapy Diagnosis: impaired self care skills Height/Weight Height (Feet): 5 Height (Inches): 0.00 Weight (Pounds): 145 Weight (Ounces): 6.0 Precautions Precautions/Isolations: Fall Prevention, Standard Precautions, Pressure Ulcer Safety Interventions: Bed Exit Alarm, Reorient-Attempt, Reorient-PRN Referral Physician: Christine Referral Reason: Activity Tolerance, Self Care, Evaluation/Treatment, Strengthening/ROM Medical History Pertinent Medical History: Arthritis, COPD, GERD, HTN, [place] Additional Medical History s/p colon resection with ileostomy Social History Home: Single Level Current Living Status: Alone Entry Into Home: Stairs With Railing Steps Into Home: 4 ADL-Prior Level of Function Therapy Code Descriptions/Definitions Functional [place] Measure: 0=Not Assessed/NA 4=Minimal Assistance 1=Total Assistance 5=Supervision or Setup 2=Maximal Assistance 6=Modified [place] 3=Moderate Assistance 7=Complete [place] Therapy Quality Codes: 6 Independent with activity with or without an assistive device 5 Patient requires set up or clean up by helper. Patient completes activity by themselves 4 Supervision or touching assist (CGA). [place] provide cues , steadying assist 3 The helper provides less than half the effort to complete the activity 2 The helper provides more than half the effort to complete the activity 1 Dependent. The helper does all the effort to complete an activity 7 Patient refused to complete or attempt activity 9 The patient did not perform the activity before the current illness or injury 88 Not attempted due to Medical conditions or safety concerns Functional Abilities and Goals: Independent: Patient completed the activities by him/herself, with or without an assistive device, with no assistance from a helper. Needed Some Help: Patient needed partial assistance from another person to complete activities. Dependent: A helper completed the activities for the patient. Unknown: Not Applicable: ADL PLOF Comments Pt reports being independent prior to admission Self Care: Independent Functional Cognition: Independent OT Current Status Subjective Spoke with RN regarding pt status. RN states pt is okay for bed level therapy at this time Pt in bed, agrees to therapy. Pt states she is having little pain at this time. Mental Status/Objective Patient Orientation: Person Attachments: Colostomy/Ileostomy, Kelley Catheter, IV, Oxygen (vapotherm) Current Glasses/Contacts: Yes Hearing Aids: No Dentures/Partials: Yes Hand Dominance: Right Upper Extremity ROM Pt has decreased shoulder ROM. Upper Extremity Coordination decreased Upper Extremity Strength Decreased strength bilaterally. ADL-Treatment ADL-Current Pt participated in UE assessment while in bed. Pt answers questions appropriately, but keeps eyes closed throughout most of session. Pt fatigues quickly with UE activity. O2 sats 90-93% during session. Education provided regarding role of OT and plan of care. Pt states understanding of education and is in agreement with plan. Pt resting in bed with needs met and son present after session. Therapy Code Descriptions/Definitions Functional [place] Measure: 0=Not Assessed/NA 4=Minimal Assistance 1=Total Assistance 5=Supervision or Setup 2=Maximal Assistance 6=Modified [place] 3=Moderate Assistance 7=Complete [place] Therapy Quality Codes: 6 Independent with activity with or without an assistive device 5 Patient requires set up or clean up by helper. Patient completes activity by themselves 4 Supervision or touching assist (CGA). [place] provide cues , steadying assist 3 The helper provides less than half the effort to complete the activity 2 The helper provides more than half the effort to complete the activity 1 Dependent. The helper does all the effort to complete an activity 7 Patient refused to complete or attempt activity 9 The patient did not perform the activity before the current illness or injury 88 Not attempted due to Medical conditions or safety concerns Education OT Patient Education: Rehab process Teaching Recipient: Patient Teaching Methods: Discussion Response to Teaching: Verbalize Understanding, Reinforcement Needed OT Short Term Goals Short Term Goals Additional Short Term Goals: 1-Demonstrate ADL Tasks, 2-Verbalize Understanding , 3-ImproveStrength/[place] 1=Demonstrate adherence to instructed precautions during ADL tasks. 2=Patient will verbalize/demonstrate understanding of assistive devices/ modifications for ADL. 3=Patient will improve strength/tolerance for activity to enable patient to perform ADL's. OT Care Home Goals Care Home Goals Time Frame: Jan 06, 2019 Eating (FIM): 6 Grooming(FIM): 6 Upper Body Dressing(FIM): 5 Lower Body Dressing(FIM): 4 Toileting(FIM): 4 Toilet/Commode Transfer(FIM): 5 Additional Goals: 1-Demonstrate ADL Tasks, 2-Verbalize Understanding, 3- ImproveStrength/[place] 1=Demonstrate adherence to instructed precautions during ADL tasks. 2=Patient will verbalize/demonstrate understanding of assistive devices/ modifications for ADL. 3=Patient will improve strength/tolerance for activity to enable patient to perform ADL's. OT Education/Plan Problem List/Assessment Assessment: Decreased Activ Tolerance, Decreased UE Strength, Dependent Transfers, Impaired Bed Mobility, Impaired Funct Balance, Impaired I ADL's, Impaired Self-Care Skills Pt to benefit from skilled OT intervention for ADL training, transfers, strengthening, and safety education to increase level of independence and allow safe discharge. Will increase activity as tolerated. Discharge Recommendations Plan/Recommendations: Continue POC Treatment Plan/Plan of Care Treatment,Training & Education: Yes Patient would benefit from OT for education, treatment and training to promote independence in ADL's, mobility, safety and/or upper extremity function for ADL' s. Plan of Care: ADL Retraining, Caregiver Training, Functional Mobility, UE Funct Exercise/Act, UE Neuromus Re-Ed/Coord Treatment Duration: Jan 06, 2019 Frequency: 5 times per week Estimated Hrs Per Day: .25 hour per day Agreement: Yes Rehab Potential: Poor Time/GCodes Start Time: 11:45 Stop Time: 11:55 Total Time Billed (hr/min): 10 Billed Treatment Time 1, EVM(10minutes) JARAD MARINO OT Dec 16, 2018 13:24
[2018-12-16] MEDS: FAMOTIDINE 20 MG (PEPCID) TABLET PO SCH (16:06)
[2018-12-16] MEDS: FLUCONAZOLE IV SCH ×2 (17:16)
[2018-12-16] MEDS: ENOXAPARIN 30 MG/0.3 ML (LOVENOX) SYR SC SCH (17:16)
[2018-12-16] MEDS: morphine INJ 4 MG/ML 1 ML (VIAL/SYRINGE) IVP PRN (20:34)
[2018-12-16] MEDS: hydrOXYzine (ATARAX) 10 MG TAB PO SCH (23:57)
[2018-12-16] MEDS: MIRTAZAPINE 15 MG (REMERON) TAB PO SCH (23:57)
[2018-12-16] MEDS: ATORVASTATIN 40 MG (LIPITOR) TABLET PO SCH (23:57)
[2018-12-17] VITALS (30 sets, daily range): BP systolic 112–163; BP diastolic 41–74
[2018-12-17] MEDS: ARTIFICAL TEARS 0.4 ML UNIT DOSE (REFRESH PLUS) OU SCH ×4 (00:01→21:30)
[2018-12-17] MEDS: SENNA W/DOCUSATE (SENOKOT S) TABLET PO SCH ×3 (00:01→21:31)
[2018-12-17] MEDS: DEXMEDETOMIDINE INJECTION 200 MCG in NS (IVPB) 50 ML IV SCH ×2 (00:01→11:48)
[2018-12-17] MEDS: RT-ALBUTEROL SULF 2.5 MG/3 ML PRE-MIX VIAL INH SCH ×6 (01:06→22:00)
[2018-12-17] MEDS: D5 1/2 NS 1000 ML IV SOLUTION 1,000 ML IV SCH (01:40)
[2018-12-17] MEDS: morphine INJ 4 MG/ML 1 ML (VIAL/SYRINGE) IVP PRN ×5 (01:40→23:33)
[2018-12-17 04:05] LABS: BASOPHILS % (AUTO) 0 % (0-10); EOSINOPHILS % (AUTO) 0 % (0-10); HEMATOCRIT 26 % (35-52); HEMOGLOBIN 8.5 G/DL (11.5-16.0); LYMPHOCYTES # (AUTO) 0.4 X 10^3 (1.0-4.0); LYMPHOCYTES % (AUTO) 2 % (12-44); MEAN CORPUSCULAR HEMOGLOBIN 29 PG (25-34); MEAN CORPUSCULAR HGB CONC 33 G/DL (32-36); MEAN CORPUSCULAR VOLUME 89 FL (80-99); MEAN PLATELET VOLUME 9.6 FL (7.4-10.4); MONOCYTES # (AUTO) 1.1 X 10^3 (0.0-1.0); MONOCYTES % (AUTO) 5 % (0-12); NEUTROPHILS # (AUTO) 21.5 X 10^3 (1.8-7.8); NEUTROPHILS % (AUTO) 93 % (42-75); PLATELET COUNT 177 10^3/uL (130-400); WHITE BLOOD COUNT 23.1 10^3/uL (4.3-11.0)
[2018-12-17 04:31] LABS: CALCIUM 8.4 MG/DL (8.5-10.1); CREATININE SERUM 1.33 MG/DL (0.60-1.30); POTASSIUM 3.5 MMOL/L (3.6-5.0)
[2018-12-17] MEDS: ACETAMINOPHEN 325 MG TABLET PO SCH ×5 (05:00→21:31)
[2018-12-17 05:36] LABS: ABG BASE EXCESS 1.8 MMOL/L (-2.5-2.5); ABG OXYGEN SATURATION 99 % (94-100); ABG PCO2 36 MMHG (35-45); ABG PH 7.46 (7.37-7.43); ABG PO2 100 MMHG (79-93); ABG TCO2 26.7 MMOL/L (21.0-31.0); ALLENS TEST YES-POS; INSPIRED O2 30%; VENTILATOR NO
[2018-12-17] MEDS ORDERED: POTASSIUM CL 10MEQ/50ML IVPB 50 ML IV SCH (06:15)
--- NOTE | 2018-12-17 06:24 | Pulmonary Progress Note ---
Subjective Time Seen by a Provider: 06:20 Subjective/Events-last exam PT is doing well off vent Sepsis Event Evaluation Height, Weight, BMI Height: 5'0.00" Weight: 145lbs. 6.0oz. [id number]; 20.6 BMI Method:Stated Exam Exam Vital Signs Date Time Temp Pulse Resp B/P (MAP) Pulse Ox O2 Delivery O2 Flow Rate FiO2 12/17/18 06:00 73 12 128/54 (78) 98 NIV Bilevel 30.00 12/17/18 05:00 76 15 132/59 (83) 97 NIV Bilevel 30.00 12/17/18 04:10 81 16 97 30.00 12/17/18 04:00 93 NIV Bilevel 30 12/17/18 04:00 92 21 157/68 (97) 91 NIV Bilevel 30.00 12/17/18 03:00 81 18 123/59 (80) 98 NIV Bilevel 30.00 12/17/18 02:00 82 17 129/56 (80) 97 NIV Bilevel 30.00 12/17/18 01:06 81 16 98 30.00 12/17/18 01:00 81 16 133/55 (81) 98 NIV Bilevel 30.00 12/17/18 01:00 83 12/17/18 00:00 80 16 144/64 (90) 98 NIV Bilevel 30.00 12/17/18 00:00 93 NIV Bilevel 30 12/16/18 23:26 NIV Bilevel 30.00 12/16/18 23:25 80 15 100 35.00 12/16/18 23:00 84 15 137/64 (88) 100 NIV Bilevel 35.00 12/16/18 22:00 85 19 130/61 (84) 98 NIV Bilevel 35.00 12/16/18 21:50 89 24 99 40.00 12/16/18 21:50 NIV Bilevel 35.00 12/16/18 21:35 94 Vapotherm 20.00 30 12/16/18 21:00 90 24 155/69 (97) 93 Vapotherm 30.00 20.00 12/16/18 20:00 85 22 138/59 (85) 96 Vapotherm 30.00 20.00 12/16/18 20:00 92 Vapotherm 20.00 30 12/16/18 19:00 81 12/16/18 19:00 79 20 120/57 (78) 96 Vapotherm 30.00 20.00 12/16/18 18:31 Vapotherm 20.00 30 12/16/18 18:18 93 Vapotherm 20.00 30 12/16/18 18:00 94 22 165/72 (103) 91 Vapotherm 30.00 20.00 12/16/18 17:00 99 30 134/66 (88) 90 Vapotherm 30.00 20.00 12/16/18 16:09 98.7 12/16/18 16:00 98 25 142/60 (87) 89 Vapotherm 30.00 20.00 12/16/18 15:15 92 Vapotherm 20.00 30 12/16/18 15:00 96 32 134/54 (80) 92 Vapotherm 30.00 20.00 12/16/18 14:00 92 20 127/48 (74) 93 Vapotherm 30.00 20.00 12/16/18 13:40 95 Vapotherm 20.00 30 12/16/18 13:00 87 22 112/74 (87) 94 Vapotherm 30.00 20.00 12/16/18 13:00 82 12/16/18 12:00 115 24 123/55 (77) 88 Vapotherm 30.00 20.00 12/16/18 11:37 98.3 12/16/18 11:12 92 Vapotherm 20.00 30 12/16/18 11:00 118 33 124/97 (106) 91 Vapotherm 30.00 20.00 12/16/18 10:00 92 Vapotherm 20.00 30 12/16/18 10:00 85 33 118/62 (80) 92 Vapotherm 30.00 15.00 12/16/18 09:00 105 30 134/54 (80) 91 Vapotherm 30.00 15.00 12/16/18 08:54 20.00 30 12/16/18 08:00 98.4 12/16/18 08:00 108 19 147/65 (92) 91 Vapotherm 30.00 15.00 12/16/18 08:00 93 Vapotherm 15.00 30 12/16/18 07:00 100 12/16/18 07:00 100 16 126/56 (79) 93 Vapotherm 30.00 15.00 12/16/18 06:25 92 Vapotherm 15.00 30 I & O 12/17/18 07:00 Intake Total 1060 ml Output Total 2250 ml Balance -1190 ml Height & Weight Height: 5'0.00" Weight: 145lbs. 6.0oz. 65.939856ln; 20.6 BMI Method:Stated General Appearance: Mild Distress HEENT: Normal ENT Inspection Neck: Supple Respiratory: Crackles, Decreased Breath Sounds Cardiovascular: Regular Rate, Rhythm, Systolic Murmur Capillary Refill: Less Than 3 Seconds Gastrointestinal: soft, abnormal bowel sounds, other (ostomy pink with no output in bag/wound bandages dry) Extremity: Pedal Edema Neurologic/Psychiatric: Alert, Oriented x3 Skin: Warm/Dry, Ecchymosis Results Lab Laboratory Tests 12/16/18 03:25 12/17/18 03:53 Assessment/Plan Assessment/Plan Acute on chronic Respiratory failure -OXygen -SVNS -Monitor Severe abdominal pain with guarding and rebound tenderness s/p acute abdomen secondary to toxic megacolon and ischemia -Dr. Yates is following Severe sepsis with septic shock - improving -Continue Merrem Hypernatremia -Change to D5W COPDAE with pulmonary edema -SVNS -Solumedrol -Lasix Atelectasis with pneumonia -Merrem ARF -monitor Anxiety HTN Weakness -Consult PT/OT GREGOR JOSEPH DO Dec 17, 2018 06:24
[2018-12-17] MEDS: methylPREDNISolone 40 MG/ML (Solu-MEDROL) VIAL IV SCH ×3 (06:59→21:30)
[2018-12-17] MEDS: inSUlin ASPART (NovoLOG) 1 UNIT/0.01 ML (CHARGE PER UNIT) SQ SCH ×3 (07:01→19:02)
[2018-12-17] MEDS: POTASSIUM CL 10MEQ/50ML IVPB 50 ML IV SCH ×5 (07:01→11:00)
[2018-12-17] MEDS: D5W 1000 ML IV SOLUTION 1,000 ML IV SCH ×2 (07:01→18:51)
[2018-12-17] MEDS: KCL 20 MEQ TAB (K-DUR) PO SCH (08:13)
[2018-12-17] MEDS: MAGNESIUM 1 GM/100 ML IVPB 100 ML IV SCH (08:13)
[2018-12-17] MEDS: LACTOBACILLUS ACIDOPHILUS (PROBIOTIC) CAPSULE PO SCH ×3 (08:13→15:33)
[2018-12-17] MEDS: NYSTATIN ORAL SUSP 5 ML UDC PO SCH ×5 (08:13→23:30)
--- NOTE | 2018-12-17 08:30 | NUR ---
Pt awake and alert to voice. This RN reassessed pt and pt wishes at this time. Pt verbalized to this RN that she did not want CPR nor did she want intubation. This RN assessed pt's orientation and pt was able to tell this RN her name, , year, president and where she was at this time. This RN again explained that if the pt should stop breathing or her heart should stop, that staff would not perform any life saving interventions. Pt agreed and stated "that's what I want". Dr. Gomez notified of pt's wishes. Dr. Gomez agreed that the pt was making the best decision for herself at this time.
[2018-12-17] MEDS ORDERED: FUROSEMIDE 40 MG/4 ML INJ (LASIX) IVP SCH (09:00)
--- NOTE | 2018-12-17 09:13 | Cardiology Progress Note ---
Subjective Date Seen by Provider: Dec 17, 2018 Time Seen by Provider: 09:09 Subjective/Events-last exam patient is laying down in bed, complaining of fatigue and loss of energy. Review of Systems General: No Chills, No Night Sweats; Fatigue, Malaise; No Appetite, No Other HEENT: No Head Aches, No Visual Changes, No Eye Pain, No Ear Pain, No Dysphasia , No Sinus Congestion, No Post Nasal Drip, No Sore Throat, No Other Pulmonary: Dyspnea; No Cough, No Pleuritic Chest Pain, No Other Cardiovascular: No: Chest Pain, Palpitations, Orthopnea, Paroxysmal Noc. Dyspnea, Edema, Lt Headedness, Other Objective-Cardiology Exam Last Set of Vital Signs Vital Signs 12/17/18 12/17/18 04:00 09:00 Temp 97.0 Pulse 79 Resp 10 B/P (MAP) 112/57 (75) Pulse Ox 96 O2 Delivery NIV Bilevel O2 Flow Rate 30.00 Capillary Refill : Less Than 3 SecondsLess Than 3 Seconds I&O Intake and Output 12/17/18 00:00 Intake Total 1060 ml Output Total 2350 ml Balance -1290 ml IV Total 1060 ml Output Urine Total 2300 ml Gastric Drainage Total 50 ml # Bowel Movements 1 General: Alert, Oriented X3, Cooperative, Mild Distress HEENT: Atraumatic Neck: Supple, No Thyromegaly Lungs: Normal Air Movement, Other (Bilateral rhonchi) Heart: Regular Rate, Normal S1, Normal S2, No Murmurs, Other Abdomen: No Masses, Other (diminished bowel sounds) Extremities: No Clubbing, No Cyanosis, No Tenderness/Swelling, Other (upper and lower extremity edema) Skin: No Rashes Neuro: Normal Speech Psych/Mental Status: Other (lethargic) Results Lab Laboratory Tests 12/17/18 03:53 A/P-Cardiology Admission Diagnosis non-ST elevation myocardial infarction infarction Acute respiratory failure Toxic megacolon Acute renal failure Assessment/Plan Status post surgery for toxic megacolon and ischemic bowel on 12/14/18 Status post respiratory failure, extubated, still having some shortness of breath and generalized fatigue and loss of energy Ac NSTEMI, but card cath of 12/06/18 shows only minimal CAD and elevated LVEDP. Cath in 2008, following NSTEMI, had also not shown any significant CAD, has been followed by Dr. Soto S/P non-syncopal fall on 12-05-18 resulting in multiple abrasions Chronic kidney disease, stage 3 with some contrast nephropathy post card cath of 12/06/18, continue to monitor renal function TIA on Mar 08 2018 for which she was seen in the ED Severe chronic obstructive pulmonary disease due to prior tobaccoism. Tobaccoism that she quit in 2005. H/O cardiomyopathy with an ejection fraction of 30%, both ischemic and non- ischemic per cardiac catheterization from December 2008. Most recent echocardiogram of May 2017 showed LVEF 55-60%. Mild to mod AoR, TR, and MR. Diastolic dysfunction. Palpitations, probably related to known paroxysmal supraventricular tachycardia/ atrial fibrillation, currently controlled, patient is not receiving anticoagulation at this point Severe anxiety, currently controlled. Osteoporosis and degenerative joint disease Gastroesophageal reflux. H/O intermittent congestive heart failure due to diastolic and systolic dysfunction of the left ventricle, currently controlled. Hyperlipidemia, well controlled on therapy with simvastatin. H/o left cataract surgery. Mild ascending aortic aneurysm measuring 4.2 cm found incidentally on a CT scan or 07/10/[address] Christine Morales nodules being followed by Dr King Carotid u/s of 04/19/18: less than 40% ROSY, 50-60% LICA stenoses Diagnosis of hypothyroidism in April 2018, managed by Dr Paz, but she has been noncompliant with thyroid replacement therapy Clinical Quality Measures DVT/VTE Risk/Contraindication: Risk Factor Score Per Nursin RFS Level Per Nursing on Admit: 3=High CARLOS SMITH MD Dec 17, 2018 09:13
--- NOTE | 2018-12-17 09:41 | Diagnostic Imaging Report ---
Indication: Bowel obstruction. Time of exam: 3:43 AM Correlation is made with prior study one day earlier. Right-sided line has tip overlying the SVC. ET tube and NG tube have been removed. There is some residual infiltrate or atelectasis in the right base. Trace bilateral effusions are noted. There is some linear atelectasis in the right upper lobe as well. Impression: Extubation chest with residual regions of infiltrate/atelectasis right upper and right lower lobe, as described. Dictated by: Dictated on workstation # [id number]
[2018-12-17] MEDS: LORazepam 1 MG (ATIVAN) TAB PO SCH ×2 (09:52→21:31)
[2018-12-17] MEDS: DIGOXIN 62.5 MCG (LANOXIN) TAB PO SCH (09:52)
[2018-12-17] MEDS: PANTOPRAZOLE 40 MG (PROTONIX) VIAL IV SCH (09:52)
[2018-12-17] MEDS: MEROPENEM 500 MG/SWFI 10 ML IV PUSH IV SCH ×4 (09:52→21:30)
[2018-12-17] MEDS: LOSARTAN 25 MG (COZAAR) TAB PO SCH (09:53)
[2018-12-17] MEDS: ASPIRIN E.C. 81 MG (ECOTRIN) TAB PO SCH (09:53)
[2018-12-17] MEDS: DILTIAZEM 120 MG (CARDIZEM CD) CAP PO SCH (09:53)
[2018-12-17] MEDS: RT-ADVAIR HFA 115/21 MCG PER PUFF IH SCH ×2 (10:17→21:59)
[2018-12-17] MEDS: UMECLIDINIUM BROMIDE (INCRUSE ELLIPTA) 7'S IH SCH (10:18)
--- NOTE | 2018-12-17 12:33 | Progress Note-Hospitalist ---
Subjective HPI/CC On Admission Date Seen by Provider: Dec 17, 2018 Time Seen by Provider: 12:00 Subjective/Events-last exam Patient back on BiPAP Appears to be significantly declined Told the nurse she does not want to be intubated or anything more to be done due to her in case she declines any further Patient sound asleep when I see her Patient appears to be comfortable with pain medication Overall very poor prognosis and I updated Dr. King Review of Systems Pulmonary: Dyspnea Objective Exam Vital Signs Vital Signs Date Time Temp Pulse Resp B/P (MAP) Pulse Ox O2 Delivery O2 Flow Rate FiO2 12/17/18 14:00 82 12 145/58 (87) 96 NIV Bilevel 30.00 12/17/18 13:57 25 12/17/18 04:00 97.0 Capillary Refill : Less Than 3 SecondsLess Than 3 Seconds General Appearance: No Apparent Distress, Chronically ill, Cachetic, Other ( sleeping) HEENT: Other (biPAP maintained) Respiratory: Crackles, Decreased Breath Sounds, Other (on biPAP) Cardiovascular: Regular Rate, Rhythm, Systolic Murmur Gastrointestinal: Normal Bowel Sounds, Non Tender, Soft Rectal: Deferred Back: No CVA Tenderness Extremity: Pedal Edema Neurologic/Psychiatric: Other (sleeping) Skin: Warm/Dry, Ecchymosis Results/Procedures Lab Laboratory Tests 12/17/18 03:53 Patient resulted labs reviewed. Assessment/Plan Assessment and Plan Assess & Plan/Chief Complaint Respiratory failure s/p intubation now on biPAP but wants DNR so that was ordered Assessment per PCP Dr Paz: 1. 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 Acute Exacerbation of COPD--on weaning dose of solumedrol 3. RLL Pneumonia--cont Maxipime 4. Fall with left wrist skin tear and left knee contusion--wounds dressed 5. Thrush--on diflucan 6. Acute Renal Insufficiency--hydrate and monitor Cr 7. Acute on Chronic Respiratory Failure--off ventilator 8. Acute on Chronic Diastolic CHF--on IV lasix and diuresing well 9. Acute on Chronic Anemia--S/P transfusion, monitor H/H 10. Severe Sepsis--on maxipime and sepsis protocol 11. Condition guarded DNR Very declined status Critical Care Critically Ill Patient Diagnosis/Problems Diagnosis/Problems (1) Respiratory failure Status: Acute Qualifiers: Chronicity: acute Respiratory failure complication: hypoxia Qualified Codes: J96.01 - Acute respiratory failure with hypoxia (2) Pneumonia Status: Acute Qualifiers: Pneumonia type: due to unspecified organism (3) Anemia Status: Chronic Qualifiers: Anemia type: unspecified type Qualified Codes: D64.9 - Anemia, unspecified (4) Transfusion of blood during current hospitalization Status: Acute (5) Elevated troponin Status: Acute (6) Frailty Status: Acute (7) COPD (chronic obstructive pulmonary disease) Status: Chronic Qualifiers: COPD type: unspecified COPD Qualified Codes: J44.9 - Chronic obstructive pulmonary disease, unspecified (8) S/P cardiac cath Status: Acute (9) Toxic megacolon Status: Resolved Resolution Date/Time: 12/17/18 @ 14:47 (10) S/P colectomy Status: Acute Clinical Quality Measures DVT/VTE Risk/Contraindication: Risk Factor Score Per Nursin RFS Level Per Nursing on Admit: 3=High ANGIE MALONE DO Dec 17, 2018 12:33
--- NOTE | 2018-12-17 13:34 | Progress Note ---
Subjective Date Seen by a Provider: Dec 17, 2018 Time Seen by a Provider: 13:30 Subjective/Events-last exam patient off the vent. Patient states her pain is under control. No significant output from ileostomy Wound VAC to midline Objective Exam Vital Signs Date Time Temp Pulse Resp B/P (MAP) Pulse Ox O2 Delivery O2 Flow Rate FiO2 12/17/18 12:00 92 Vapotherm 20.00 30 12/17/18 12:00 73 21 124/55 (78) 95 NIV Bilevel 30.00 12/17/18 11:00 78 12 115/51 (72) 96 NIV Bilevel 30.00 12/17/18 10:28 90 21 94 25.00 12/17/18 10:22 89 Vapotherm 20.00 30 12/17/18 10:00 80 14 132/61 (84) 95 NIV Bilevel 30.00 12/17/18 09:00 79 10 112/57 (75) 96 NIV Bilevel 30.00 12/17/18 08:00 90 21 156/74 (101) 93 NIV Bilevel 30.00 12/17/18 08:00 92 Vapotherm 20.00 30 12/17/18 07:00 92 12/17/18 07:00 92 21 152/74 (100) 93 NIV Bilevel 30.00 12/17/18 06:35 79 13 98 30.00 12/17/18 06:00 73 12 128/54 (78) 98 NIV Bilevel 30.00 12/17/18 05:00 76 15 132/59 (83) 97 NIV Bilevel 30.00 12/17/18 04:10 81 16 97 30.00 12/17/18 04:00 93 NIV Bilevel 30 12/17/18 04:00 92 21 157/68 (97) 91 NIV Bilevel 30.00 12/17/18 04:00 97.0 12/17/18 03:00 81 18 123/59 (80) 98 NIV Bilevel 30.00 12/17/18 02:00 82 17 129/56 (80) 97 NIV Bilevel 30.00 12/17/18 01:06 81 16 98 30.00 12/17/18 01:00 81 16 133/55 (81) 98 NIV Bilevel 30.00 12/17/18 01:00 83 2/9/19 00:00 97.2 12/17/18 00:00 80 16 144/64 (90) 98 NIV Bilevel 30.00 12/17/18 00:00 93 NIV Bilevel 30 12/16/18 23:26 NIV Bilevel 30.00 12/16/18 23:25 80 15 100 35.00 12/16/18 23:00 84 15 137/64 (88) 100 NIV Bilevel 35.00 12/16/18 22:00 85 19 130/61 (84) 98 NIV Bilevel 35.00 12/16/18 21:50 89 24 99 40.00 12/16/18 21:50 NIV Bilevel 35.00 12/16/18 21:35 94 Vapotherm 20.00 30 12/16/18 21:00 90 24 155/69 (97) 93 Vapotherm 30.00 20.00 12/16/18 20:00 85 22 138/59 (85) 96 Vapotherm 30.00 20.00 12/16/18 20:00 97.5 12/16/18 20:00 92 Vapotherm 20.00 30 12/16/18 19:00 81 12/16/18 19:00 79 20 120/57 (78) 96 Vapotherm 30.00 20.00 12/16/18 18:31 Vapotherm 20.00 30 12/16/18 18:18 93 Vapotherm 20.00 30 12/16/18 18:00 94 22 165/72 (103) 91 Vapotherm 30.00 20.00 12/16/18 17:00 99 30 134/66 (88) 90 Vapotherm 30.00 20.00 12/16/18 16:09 98.7 12/16/18 16:00 98 25 142/60 (87) 89 Vapotherm 30.00 20.00 12/16/18 15:15 92 Vapotherm 20.00 30 12/16/18 15:00 96 32 134/54 (80) 92 Vapotherm 30.00 20.00 12/16/18 14:00 92 20 127/48 (74) 93 Vapotherm 30.00 20.00 12/16/18 13:40 95 Vapotherm 20.00 30 I & O 12/17/18 07:00 Intake Total 1060 ml Output Total 2400 ml Balance -1340 ml Capillary Refill : Less Than 3 SecondsLess Than 3 Seconds General Appearance: No Apparent Distress HEENT: Normal ENT Inspection Neck: Supple Respiratory: Crackles, Decreased Breath Sounds Cardiovascular: Regular Rate, Rhythm Gastrointestinal: soft, other (ostomy pink with no output in bag/wound bandages dry) Extremity: Pedal Edema Neurologic/Psychiatric: Alert, Oriented x3 Skin: Warm/Dry, Ecchymosis Results Lab Laboratory Tests 12/16/18 17:15: Glucometer 195H 12/16/18 23:50: Glucometer 183H 12/17/18 03:53: White Blood Count 23.1H, Red Blood Count 2.94L, Hemoglobin 8.5L, Hematocrit 26L , Mean Corpuscular Volume 89, Mean Corpuscular Hemoglobin 29, Mean Corpuscular Hemoglobin Concent 33, Red Cell Distribution Width 19.0H, Platelet Count 177, Mean Platelet Volume 9.6, Neutrophils (%) (Auto) 93H, Lymphocytes (%) (Auto) 2L , Monocytes (%) (Auto) 5, Eosinophils (%) (Auto) 0, Basophils (%) (Auto) 0, Neutrophils # (Auto) 21.5H, Lymphocytes # (Auto) 0.4L, Monocytes # (Auto) 1.1H, Eosinophils # (Auto) 0.0, Basophils # (Auto) 0.0, Sodium Level 150H, Potassium Level 3.5L, Chloride Level 114H, Carbon Dioxide Level 25, Anion Gap 11, Blood Urea Nitrogen 51H, Creatinine 1.33H, Estimat Glomerular Filtration Rate 38, BUN/ Creatinine Ratio 38, Glucose Level 182H, Calcium Level 8.4L, Magnesium Level 2.0 12/17/18 05:31: Blood Gas Puncture Site RIGHT RADIAL, Blood Gas Patient Temperature 97.0, Arterial Blood pH 7.46H, Arterial Blood Partial Pressure CO2 36, Arterial Blood Partial Pressure O2 100H, Arterial Blood HCO3 26, Arterial Blood Total CO2 26.7 , Arterial Blood Oxygen Saturation 99, Arterial Blood Base Excess 1.8, Nahid Test YES-POS, Blood Gas Ventilator Setting NO, Blood Gas Inspired Oxygen 30% 12/17/18 11:56: Glucometer 182H Microbiology 12/13/18 Blood Culture - Preliminary, Resulted No growth 12/05/18 Urine Culture - Final, Complete See Report Assessment/Plan Assessment/Plan Assessment/Plan status post total colectomy and ileostomy Patient off the vent. white blood cell count decreasing. No changes from surgical perspective. Clinical Quality Measures DVT/VTE Risk/Contraindication: Risk Factor Score Per Nursin RFS Level Per Nursing on Admit: 3=High AUDI MUKHERJEE DO Dec 17, 2018 13:34
[2018-12-17] MEDS: FAMOTIDINE 20 MG (PEPCID) TABLET PO SCH (15:32)
[2018-12-17] MEDS: ENOXAPARIN 30 MG/0.3 ML (LOVENOX) SYR SC SCH (18:51)
[2018-12-17] MEDS: FLUCONAZOLE IV SCH ×2 (18:52)
[2018-12-17] MEDS: hydrOXYzine (ATARAX) 10 MG TAB PO SCH (21:30)
[2018-12-17] MEDS: MIRTAZAPINE 15 MG (REMERON) TAB PO SCH (21:31)
[2018-12-17] MEDS: ATORVASTATIN 40 MG (LIPITOR) TABLET PO SCH (21:31)
[2018-12-18] VITALS (29 sets, daily range): BP systolic 101–153; BP diastolic 48–87
[2018-12-18] MEDS: RT-ALBUTEROL SULF 2.5 MG/3 ML PRE-MIX VIAL INH SCH ×6 (01:34→21:24)
[2018-12-18] MEDS: inSUlin ASPART (NovoLOG) 1 UNIT/0.01 ML (CHARGE PER UNIT) SQ SCH ×4 (01:41→18:12)
[2018-12-18] MEDS: ACETAMINOPHEN 325 MG TABLET PO SCH ×4 (03:54→23:51)
[2018-12-18] MEDS: D5W 1000 ML IV SOLUTION 1,000 ML IV SCH ×3 (03:54→23:49)
[2018-12-18] MEDS: NYSTATIN ORAL SUSP 5 ML UDC PO SCH ×3 (03:54→13:50)
[2018-12-18] MEDS: LACTOBACILLUS ACIDOPHILUS (PROBIOTIC) CAPSULE PO SCH ×3 (03:54→13:50)
[2018-12-18] MEDS: DEXMEDETOMIDINE INJECTION 200 MCG in NS (IVPB) 50 ML IV SCH ×2 (03:54→23:50)
[2018-12-18] MEDS: morphine INJ 4 MG/ML 1 ML (VIAL/SYRINGE) IVP PRN ×5 (03:55→22:10)
[2018-12-18 04:27] LABS: CALCIUM 8.1 MG/DL (8.5-10.1); CREATININE SERUM 1.25 MG/DL (0.60-1.30); MAGNESIUM 1.9 MG/DL (1.8-2.4); POTASSIUM 3.6 MMOL/L (3.6-5.0)
[2018-12-18] MEDS: POTASSIUM CL 10MEQ/50ML IVPB 50 ML IV SCH ×5 (04:29→11:02)
[2018-12-18] MEDS: MAGNESIUM 1 GM/100 ML IVPB 100 ML IV SCH (04:30)
[2018-12-18] MEDS: KCL 20 MEQ TAB (K-DUR) PO SCH (04:30)
[2018-12-18 04:42] LABS: BASOPHILS % (AUTO) 0 % (0-10); EOSINOPHILS # (AUTO) 0.2 10^3/uL (0.0-0.3); EOSINOPHILS % (AUTO) 1 % (0-10); HEMATOCRIT 26 % (35-52); HEMOGLOBIN 8.2 G/DL (11.5-16.0); LYMPHOCYTES # (AUTO) 0.4 X 10^3 (1.0-4.0); LYMPHOCYTES % (AUTO) 2 % (12-44); MEAN CORPUSCULAR HEMOGLOBIN 28 PG (25-34); MEAN CORPUSCULAR HGB CONC 31 G/DL (32-36); MEAN CORPUSCULAR VOLUME 91 FL (80-99); MEAN PLATELET VOLUME 10.1 FL (7.4-10.4); MONOCYTES # (AUTO) 0.8 X 10^3 (0.0-1.0); MONOCYTES % (AUTO) 5 % (0-12); NEUTROPHILS # (AUTO) 16.4 X 10^3 (1.8-7.8); NEUTROPHILS % (AUTO) 92 % (42-75); PLATELET COUNT 186 10^3/uL (130-400); WHITE BLOOD COUNT 17.8 10^3/uL (4.3-11.0)
[2018-12-18] MEDS: methylPREDNISolone 40 MG/ML (Solu-MEDROL) VIAL IV SCH ×3 (05:09→22:11)
--- NOTE | 2018-12-18 07:59 | Pulmonary Progress Note ---
Subjective Time Seen by a Provider: 07:58 Subjective/Events-last exam Pt is requiring BiPAP and has more respiratory distress. Sepsis Event Evaluation Height, Weight, BMI Height: 5'0.00" Weight: 150lbs. 12.0oz. [id number]; 20.6 BMI Method:Stated Exam Exam Vital Signs Date Time Temp Pulse Resp B/P (MAP) Pulse Ox O2 Delivery O2 Flow Rate FiO2 12/18/18 07:17 64 22 98 30.00 12/18/18 06:00 69 21 142/59 (86) 99 NIV Bilevel 30.00 12/18/18 05:00 73 19 101/48 (65) 98 NIV Bilevel 30.00 12/18/18 04:03 98.0 12/18/18 04:00 82 16 145/66 (92) 99 NIV Bilevel 30.00 12/18/18 04:00 98 NIV Bilevel 30 12/18/18 03:24 72 99 36.00 12/18/18 03:15 NIV Bilevel 30.00 12/18/18 03:00 81 13 130/65 (86) 99 NIV Bilevel 36.00 12/18/18 02:00 87 18 153/67 (95) 100 NIV Bilevel 36.00 12/18/18 01:35 84 25 100 36.00 12/18/18 01:00 76 13 108/56 (73) 99 NIV Bilevel 36.00 12/18/18 01:00 75 12/18/18 00:00 81 10 107/56 (73) 98 NIV Bilevel 36.00 12/18/18 00:00 100 NIV Bilevel 35 12/18/18 00:00 97.5 12/17/18 23:00 90 19 156/73 (100) 99 NIV Bilevel 36.00 12/17/18 22:00 87 15 154/67 (96) 99 NIV Bilevel 36.00 12/17/18 22:00 84 25 99 36.00 12/17/18 21:00 82 12 118/56 (76) 98 NIV Bilevel 36.00 12/17/18 20:00 83 17 131/60 (83) 98 NIV Bilevel 36.00 12/17/18 20:00 99 NIV Bilevel 35 12/17/18 20:00 97.5 12/17/18 19:00 92 12/17/18 19:00 94 17 163/72 (102) 97 NIV Bilevel 36.00 12/17/18 18:50 84 20 96 25.00 12/17/18 18:00 86 19 140/63 (88) 95 NIV Bilevel 30.00 12/17/18 17:03 82 23 96 25.00 12/17/18 17:00 84 19 138/63 (88) 96 NIV Bilevel 30.00 12/17/18 16:00 87 20 149/66 (93) 97 NIV Bilevel 30.00 12/17/18 15:25 94 NIV Bilevel 20.00 30 12/17/18 15:00 87 18 153/70 (97) 97 NIV Bilevel 30.00 12/17/18 14:00 82 12 145/58 (87) 96 NIV Bilevel 30.00 12/17/18 13:57 76 95 25 12/17/18 13:52 76 12 96 25.00 12/17/18 13:00 78 12/17/18 13:00 75 11 117/52 (73) 96 NIV Bilevel 30.00 12/17/18 12:00 92 NIV Bilevel 30 12/17/18 12:00 73 21 124/55 (78) 95 NIV Bilevel 30.00 12/17/18 11:00 78 12 115/51 (72) 96 NIV Bilevel 30.00 12/17/18 10:28 90 21 94 25.00 12/17/18 10:22 89 Vapotherm 20.00 30 12/17/18 10:00 80 14 132/61 (84) 95 NIV Bilevel 30.00 12/17/18 09:00 79 10 112/57 (75) 96 NIV Bilevel 30.00 12/17/18 08:00 90 21 156/74 (101) 93 NIV Bilevel 30.00 12/17/18 08:00 92 Vapotherm 20.00 30 I & O 12/18/18 07:00 Intake Total 75 ml Output Total 1650 ml Balance -1575 ml Height & Weight Height: 5'0.00" Weight: 150lbs. 12.0oz. 68.050040xl; 20.6 BMI Method:Stated General Appearance: No Apparent Distress, Chronically ill, Cachetic, Other ( sleeping) HEENT: Other (biPAP maintained) Respiratory: Crackles, Decreased Breath Sounds, Other (on biPAP) Cardiovascular: Regular Rate, Rhythm, Systolic Murmur Capillary Refill: Less Than 3 Seconds Gastrointestinal: soft, other (ostomy pink with no output in bag/wound bandages dry) Extremity: Pedal Edema Neurologic/Psychiatric: Other (sleeping) Skin: Warm/Dry, Ecchymosis Results Lab Laboratory Tests 12/17/18 03:53 12/18/18 04:00 12/18/18 04:01 Assessment/Plan Assessment/Plan Acute on chronic Respiratory failure -OXygen -SVNS -Monitor -ABG pending -BiPAP currently -Give 2mg of bumex Severe abdominal pain with guarding and rebound tenderness s/p acute abdomen secondary to toxic megacolon and ischemia -Dr. Yates is following Severe sepsis with septic shock - improving -Continue Merrem Hypernatremia -Change to D5W COPDAE with pulmonary edema -SVNS -Solumedrol -Lasix Atelectasis with pneumonia -Merrem ARF -monitor Anxiety HTN Weakness -Consult PT/OT GREGOR JOSEPH DO Dec 18, 2018 07:59
[2018-12-18] MEDS ORDERED: BUMETANIDE 1 MG/4 ML (BUMEX) VIAL IV NR (08:00)
--- NOTE | 2018-12-18 09:41 | Cardiology Progress Note ---
Subjective Date Seen by Provider: Dec 18, 2018 Time Seen by Provider: 09:39 Subjective/Events-last exam patient had worsening respiratory failure, currently on BiPAP, fairly short of breath and lethargic. Worsening edema Review of Systems General: No Chills, No Night Sweats; Fatigue, Malaise; No Appetite, No Other HEENT: No Head Aches, No Visual Changes, No Eye Pain, No Ear Pain, No Dysphasia , No Sinus Congestion, No Post Nasal Drip, No Sore Throat, No Other Pulmonary: Dyspnea; No Cough, No Pleuritic Chest Pain, No Other Cardiovascular: Edema; No: Chest Pain, Palpitations, Orthopnea, Paroxysmal Noc. Dyspnea, Lt Headedness, Other Objective-Cardiology Exam Last Set of Vital Signs Vital Signs 12/18/18 12/18/18 12/18/18 04:00 04:03 09:00 Temp 98.0 Pulse 80 Resp 21 B/P (MAP) 146/63 (90) Pulse Ox 100 O2 Delivery NIV Bilevel O2 Flow Rate 40.00 FiO2 30 Capillary Refill : Less Than 3 SecondsLess Than 3 Seconds I&O Intake and Output 12/18/18 00:00 Intake Total 75 ml Output Total 1850 ml Balance -1775 ml Intake Oral 75 ml Output Urine Total 1850 ml General: Alert, Oriented X3, Cooperative, Mild Distress HEENT: Atraumatic Neck: Supple, No Thyromegaly Lungs: Normal Air Movement, Other (Bilateral rhonchi) Heart: Regular Rate, Normal S1, Normal S2, No Murmurs, Other Abdomen: No Masses, Other (diminished bowel sounds) Extremities: No Clubbing, No Cyanosis, No Tenderness/Swelling, Other (upper and lower extremity edema) Skin: No Rashes Neuro: Normal Speech Psych/Mental Status: Other (lethargic) Results Lab Laboratory Tests 12/18/18 04:00 12/18/18 04:01 A/P-Cardiology Admission Diagnosis non-ST elevation myocardial infarction infarction Acute respiratory failure Toxic megacolon Acute renal failure Assessment/Plan Acute respiratory failure, on BiPAP at this time. Worsening COPD, managed by Dr. King Status post surgery for toxic megacolon and ischemic bowel on 12/14/18 Ac NSTEMI, but card cath of 12/06/18 shows only minimal CAD and elevated LVEDP. Cath in 2008, following NSTEMI, had also not shown any significant CAD, has been followed by Dr. Soto S/P non-syncopal fall on 12-05-18 resulting in multiple abrasions Chronic kidney disease, stage 3 with some contrast nephropathy post card cath of 12/06/18, continue to monitor renal function TIA on Mar 08 2018 for which she was seen in the ED Severe chronic obstructive pulmonary disease due to prior tobaccoism. Tobaccoism that she quit in 2005. H/O cardiomyopathy with an ejection fraction of 30%, both ischemic and non- ischemic per cardiac catheterization from December 2008. Most recent echocardiogram of May 2017 showed LVEF 55-60%. Mild to mod AoR, TR, and MR. Diastolic dysfunction. Palpitations, probably related to known paroxysmal supraventricular tachycardia/ atrial fibrillation, currently controlled, patient is not receiving anticoagulation at this point Severe anxiety, currently controlled. Osteoporosis and degenerative joint disease Gastroesophageal reflux. H/O intermittent congestive heart failure due to diastolic and systolic dysfunction of the left ventricle, currently controlled. Hyperlipidemia, well controlled on therapy with simvastatin. H/o left cataract surgery. Mild ascending aortic aneurysm measuring 4.2 cm found incidentally on a CT scan or 07/10/[address] Christine Morales nodules being followed by Dr King Carotid u/s of 04/19/18: less than 40% ROSY, 50-60% LICA stenoses Diagnosis of hypothyroidism in April 2018, managed by Dr Paz, but she has been noncompliant with thyroid replacement therapy Clinical Quality Measures DVT/VTE Risk/Contraindication: Risk Factor Score Per Nursin RFS Level Per Nursing on Admit: 3=High CARLOS SMITH MD Dec 18, 2018 09:41
[2018-12-18] MEDS: MEROPENEM 500 MG/SWFI 10 ML IV PUSH IV SCH ×4 (09:59→22:11)
[2018-12-18] MEDS: PANTOPRAZOLE 40 MG (PROTONIX) VIAL IV SCH (09:59)
[2018-12-18] MEDS: ARTIFICAL TEARS 0.4 ML UNIT DOSE (REFRESH PLUS) OU SCH ×3 (10:10→22:11)
[2018-12-18] MEDS: ASPIRIN E.C. 81 MG (ECOTRIN) TAB PO SCH (10:11)
[2018-12-18] MEDS: DIGOXIN 62.5 MCG (LANOXIN) TAB PO SCH (10:11)
[2018-12-18] MEDS: SENNA W/DOCUSATE (SENOKOT S) TABLET PO SCH ×2 (10:11→22:04)
[2018-12-18] MEDS: DILTIAZEM 120 MG (CARDIZEM CD) CAP PO SCH (10:11)
[2018-12-18] MEDS: LOSARTAN 25 MG (COZAAR) TAB PO SCH (10:11)
--- NOTE | 2018-12-18 10:12 | NUR ---
Due to pt choking with oral medication, NPO ordered per Dr. King and verbal order to hold oral meds for today and re-evaluate pt in the morning.
[2018-12-18 10:16] LABS: ABG BASE EXCESS 2.5 MMOL/L (-2.5-2.5); ABG OXYGEN SATURATION 99 % (94-100); ABG PCO2 47 MMHG (35-45); ABG PH 7.38 (7.37-7.43); ABG PO2 150 MMHG (79-93); ABG TCO2 28.8 MMOL/L (21.0-31.0)
[2018-12-18 10:17] LABS: ALLENS TEST YES-POS; INSPIRED O2 40%; VENTILATOR NO
[2018-12-18] MEDS: UMECLIDINIUM BROMIDE (INCRUSE ELLIPTA) 7'S IH SCH (10:17)
--- NOTE | 2018-12-18 10:45 | Diagnostic Imaging Report ---
Indication: Bowel obstruction, myocardial infarct. Time of exam: 2:50 AM Correlation is made to prior study one day earlier. Right-sided line has tip overlying the SVC. Some persistent infiltrate in the right base. Left lung is fairly clear. No significant effusion or pneumothorax is seen. Impression: Persistent right basilar infiltrate, similar to examination one day earlier. Dictated by: Dictated on workstation # [id number]
--- NOTE | 2018-12-18 12:38 | Progress Note ---
Subjective Date Seen by a Provider: Dec 18, 2018 Time Seen by a Provider: 10:00 Subjective/Events-last exam patient vigorously respiratory issues. Patient on BiPAP at this time no family at bedside. ileostomy with slight output. Objective Exam Vital Signs Date Time Temp Pulse Resp B/P (MAP) Pulse Ox O2 Delivery O2 Flow Rate FiO2 12/18/18 11:09 92 NIV Bilevel 40 12/18/18 10:18 79 22 99 30.00 12/18/18 10:00 76 20 100 NIV Bilevel 40.00 12/18/18 09:00 80 21 146/63 (90) 100 NIV Bilevel 40.00 12/18/18 08:56 NIV Bilevel 40.00 12/18/18 08:00 95 NIV Bilevel 40 12/18/18 08:00 62 10 104/53 (70) 97 NIV Bilevel 30.00 12/18/18 07:17 64 22 98 30.00 12/18/18 07:00 63 12/18/18 07:00 65 10 110/56 (74) 97 NIV Bilevel 30.00 12/18/18 06:00 69 21 142/59 (86) 99 NIV Bilevel 30.00 12/18/18 05:00 73 19 101/48 (65) 98 NIV Bilevel 30.00 12/18/18 04:03 98.0 12/18/18 04:00 82 16 145/66 (92) 99 NIV Bilevel 30.00 12/18/18 04:00 98 NIV Bilevel 30 12/18/18 03:24 72 99 36.00 12/18/18 03:15 NIV Bilevel 30.00 12/18/18 03:00 81 13 130/65 (86) 99 NIV Bilevel 36.00 12/18/18 02:00 87 18 153/67 (95) 100 NIV Bilevel 36.00 12/18/18 01:35 84 25 100 36.00 12/18/18 01:00 76 13 108/56 (73) 99 NIV Bilevel 36.00 12/18/18 01:00 75 12/18/18 00:00 81 10 107/56 (73) 98 NIV Bilevel 36.00 12/18/18 00:00 100 NIV Bilevel 35 12/18/18 00:00 97.5 12/17/18 23:00 90 19 156/73 (100) 99 NIV Bilevel 36.00 12/17/18 22:00 87 15 154/67 (96) 99 NIV Bilevel 36.00 12/17/18 22:00 84 25 99 36.00 12/17/18 21:00 82 12 118/56 (76) 98 NIV Bilevel 36.00 12/17/18 20:00 83 17 131/60 (83) 98 NIV Bilevel 36.00 12/17/18 20:00 99 NIV Bilevel 35 12/17/18 20:00 97.5 12/17/18 19:00 92 12/17/18 19:00 94 17 163/72 (102) 97 NIV Bilevel 36.00 12/17/18 18:50 84 20 96 25.00 12/17/18 18:00 86 19 140/63 (88) 95 NIV Bilevel 30.00 12/17/18 17:03 82 23 96 25.00 12/17/18 17:00 84 19 138/63 (88) 96 NIV Bilevel 30.00 12/17/18 16:00 87 20 149/66 (93) 97 NIV Bilevel 30.00 12/17/18 15:25 94 NIV Bilevel 20.00 30 12/17/18 15:00 87 18 153/70 (97) 97 NIV Bilevel 30.00 12/17/18 14:00 82 12 145/58 (87) 96 NIV Bilevel 30.00 12/17/18 13:57 76 95 25 12/17/18 13:52 76 12 96 25.00 12/17/18 13:00 78 12/17/18 13:00 75 11 117/52 (73) 96 NIV Bilevel 30.00 I & O 12/18/18 07:00 Intake Total 75 ml Output Total 1650 ml Balance -1575 ml Capillary Refill : Less Than 3 SecondsLess Than 3 Seconds General Appearance: Chronically ill, Cachetic, Mild Distress, Other (sleeping) HEENT: Other (biPAP maintained) Respiratory: Crackles, Decreased Breath Sounds, Other (on biPAP) Cardiovascular: Regular Rate, Rhythm, Systolic Murmur Gastrointestinal: soft, other (ostomy pink withmin output in bag/wound bandages dry, wound VAC midline) Extremity: Pedal Edema Neurologic/Psychiatric: Alert Skin: Warm/Dry, Ecchymosis Results Lab Laboratory Tests 12/17/18 19:01: Glucometer 153H 12/18/18 01:36: Glucometer 213H 12/18/18 04:00: White Blood Count 17.8H, Red Blood Count 2.91L, Hemoglobin 8.2L, Hematocrit 26L , Mean Corpuscular Volume 91, Mean Corpuscular Hemoglobin 28, Mean Corpuscular Hemoglobin Concent 31L, Red Cell Distribution Width 18.0H, Platelet Count 186, Mean Platelet Volume 10.1, Neutrophils (%) (Auto) 92H, Lymphocytes (%) (Auto) 2L , Monocytes (%) (Auto) 5, Eosinophils (%) (Auto) 1, Basophils (%) (Auto) 0, Neutrophils # (Auto) 16.4H, Lymphocytes # (Auto) 0.4L, Monocytes # (Auto) 0.8, Eosinophils # (Auto) 0.2, Basophils # (Auto) 0.0, B-Type Natriuretic Peptide 1693.8H 12/18/18 04:01: Sodium Level 142, Potassium Level 3.6, Chloride Level 108H, Carbon Dioxide Level 26, Anion Gap 8, Blood Urea Nitrogen 46H, Creatinine 1.25, Estimat Glomerular Filtration Rate 41, BUN/Creatinine Ratio 37, Glucose Level 180H, Calcium Level 8.1L, Magnesium Level 1.9 12/18/18 09:50: Blood Gas Puncture Site LT RAD, Blood Gas Patient Temperature 97.0, Arterial Blood pH 7.38, Arterial Blood Partial Pressure CO2 47H, Arterial Blood Partial Pressure O2 150H, Arterial Blood HCO3 27, Arterial Blood Total CO2 28.8, Arterial Blood Oxygen Saturation 99, Arterial Blood Base Excess 2.5, Nahid Test YES-POS, Blood Gas Ventilator Setting NO, Blood Gas Inspired Oxygen 40% 12/18/18 11:59: Glucometer 128H Microbiology 12/13/18 Blood Culture - Preliminary, Resulted No growth 12/05/18 Urine Culture - Final, Complete See Report Assessment/Plan Assessment/Plan Assessment/Plan status post total colectomy and ileostomy Patient refractory status declining patient on BiPAP at this time. white blood cell count decreasing. No changes from surgical perspective. Clinical Quality Measures DVT/VTE Risk/Contraindication: Risk Factor Score Per Nursin RFS Level Per Nursing on Admit: 3=High AUDI MUKHERJEE DO Dec 18, 2018 12:38
[2018-12-18] MEDS: FAMOTIDINE 20 MG (PEPCID) TABLET PO SCH (13:50)
[2018-12-18] MEDS: RT-ADVAIR HFA 115/21 MCG PER PUFF IH SCH ×2 (14:17→19:12)
--- NOTE | 2018-12-18 14:44 | Progress Note-Hospitalist ---
Progress Note Progress Notes/Assess & Plan Date Seen 12/18/18 Time Seen by Provider: 14:39 Assessment & Plan The patient was a 78-year-old white female who had multiple medical problems primarily her respiratory system and severe COPD. On 12/13 she was noted to have considerable abdominal pain. CT scan showed a tremendous amount of feces throughout the colon. There was distention and air-fluid levels in the small bowel. The initial approach was to try to address the constipation conservatively. Later in the day she showed a considerable decline in vital signs and was taken to the OR at high risk because of apparent megacolon. Her vital signs remained stable here in the ICU but her respiratory function is quite marginal. Physical exam: The patient is sedated. Her vital signs look satisfactory. BiPAP is in place. Lungs show distant breath sounds. CV shows a regular rhythm. Blood pressure is satisfactory. Impression: Severe COPD and borderline respiratory failure. 2.status post major abdominal surgery 12/13 Plan continue present modalities. She remains at high risk for mortality. JOE POTTER MD Dec 18, 2018 14:44
[2018-12-18] MEDS: FLUCONAZOLE IV SCH ×2 (18:40)
[2018-12-18] MEDS: ENOXAPARIN 30 MG/0.3 ML (LOVENOX) SYR SC SCH (18:40)
[2018-12-18] MEDS: hydrOXYzine (ATARAX) 10 MG TAB PO SCH (22:03)
[2018-12-18] MEDS: ATORVASTATIN 40 MG (LIPITOR) TABLET PO SCH (22:04)
[2018-12-18] MEDS: MIRTAZAPINE 15 MG (REMERON) TAB PO SCH (22:04)
--- NOTE | 2018-12-18 22:45 | NUR ---
Arm noted below and close to midline IV appears to be swollen. Midline IV removed per this RN for fear of infiltrate. Does have a central line in place.
[2018-12-19] VITALS (30 sets, daily range): BP systolic 123–166; BP diastolic 52–95
[2018-12-19] MEDS: NYSTATIN ORAL SUSP 5 ML UDC PO SCH ×4 (00:17→18:21)
[2018-12-19] MEDS: inSUlin ASPART (NovoLOG) 1 UNIT/0.01 ML (CHARGE PER UNIT) SQ SCH ×4 (00:18→17:12)
[2018-12-19] MEDS: RT-ALBUTEROL SULF 2.5 MG/3 ML PRE-MIX VIAL INH SCH ×2 (01:23→06:31)
[2018-12-19 03:54] LABS: CALCIUM 8.4 MG/DL (8.5-10.1); CREATININE SERUM 1.25 MG/DL (0.60-1.30); MAGNESIUM 2.1 MG/DL (1.8-2.4); POTASSIUM 4.1 MMOL/L (3.6-5.0)
[2018-12-19] MEDS: morphine INJ 4 MG/ML 1 ML (VIAL/SYRINGE) IVP PRN ×4 (03:58→22:29)
[2018-12-19] MEDS: POTASSIUM CL 10MEQ/50ML IVPB 50 ML IV SCH (04:18)
[2018-12-19] MEDS: MAGNESIUM 1 GM/100 ML IVPB 100 ML IV SCH (04:19)
[2018-12-19] MEDS: KCL 20 MEQ TAB (K-DUR) PO SCH (04:19)
[2018-12-19] MEDS: ACETAMINOPHEN 325 MG TABLET PO SCH ×4 (05:52→22:30)
[2018-12-19] MEDS: methylPREDNISolone 40 MG/ML (Solu-MEDROL) VIAL IV SCH ×3 (06:39→22:29)
[2018-12-19] MEDS: UMECLIDINIUM BROMIDE (INCRUSE ELLIPTA) 7'S IH SCH (06:54)
[2018-12-19] MEDS: RT-ADVAIR HFA 115/21 MCG PER PUFF IH SCH ×2 (06:54→18:42)
--- NOTE | 2018-12-19 07:15 | Pulmonary Progress Note ---
Subjective Time Seen by a Provider: 07:21 Subjective/Events-last exam Currently off BiPAP. Still SOB on Vapotherm Sepsis Event Evaluation Height, Weight, BMI Height: 5'0.00" Weight: 153lbs. 12.0oz. 69.260340mn; 20.6 BMI Method:Stated Exam Exam Vital Signs Date Time Temp Pulse Resp B/P (MAP) Pulse Ox O2 Delivery O2 Flow Rate FiO2 12/19/18 06:47 94 Vapotherm 20.00 30 12/19/18 06:32 85 20 97 30.00 12/19/18 06:00 93 14 146/62 (90) 95 NIV Bilevel 30.00 12/19/18 05:00 86 19 132/52 (78) 96 NIV Bilevel 30.00 12/19/18 04:00 94 27 144/64 (90) 99 NIV Bilevel 30.00 12/19/18 03:58 97.4 12/19/18 03:44 82 20 96 30.00 12/19/18 03:00 86 25 123/71 (88) 96 NIV Bilevel 30.00 12/19/18 02:00 90 17 123/57 (79) 96 NIV Bilevel 30.00 12/19/18 01:23 86 20 96 30.00 12/19/18 01:00 92 16 127/58 (81) 95 NIV Bilevel 30.00 12/19/18 01:00 92 12/19/18 00:17 99.3 12/19/18 00:00 89 27 131/59 (83) 96 NIV Bilevel 30.00 12/18/18 23:02 94 21 95 30.00 12/18/18 23:00 95 24 123/58 (79) 95 NIV Bilevel 30.00 12/18/18 22:00 90 19 139/67 (91) 97 NIV Bilevel 30.00 12/18/18 21:24 99 24 96 30.00 12/18/18 21:00 94 29 151/74 (99) 95 NIV Bilevel 30.00 12/18/18 20:30 98.7 96 20 133/58 (83) NIV Bilevel 12/18/18 19:42 98.4 12/18/18 19:12 NIV Bilevel 30 12/18/18 19:09 81 20 97 30.00 12/18/18 19:00 80 12/18/18 19:00 80 20 129/63 (85) 96 NIV Bilevel 30.00 12/18/18 18:00 81 20 140/56 (84) 96 NIV Bilevel 30.00 12/18/18 17:00 78 19 105/51 (69) 96 NIV Bilevel 30.00 12/18/18 16:00 81 19 130/59 (82) 97 NIV Bilevel 30.00 12/18/18 16:00 98.1 12/18/18 15:36 95 NIV Bilevel 30 12/18/18 15:00 79 20 134/57 (82) 96 NIV Bilevel 30.00 12/18/18 14:18 79 22 98 30.00 12/18/18 14:00 80 22 134/59 (84) 97 NIV Bilevel 40.00 12/18/18 13:07 75 12/18/18 13:00 75 19 144/57 (86) 98 NIV Bilevel 40.00 12/18/18 12:00 76 19 122/54 (76) 98 NIV Bilevel 40.00 12/18/18 11:09 92 NIV Bilevel 40 12/18/18 11:00 79 13 121/56 (77) 97 NIV Bilevel 40.00 12/18/18 10:18 79 22 99 30.00 12/18/18 10:00 76 20 100 NIV Bilevel 40.00 12/18/18 09:00 80 21 146/63 (90) 100 NIV Bilevel 40.00 12/18/18 08:56 NIV Bilevel 40.00 12/18/18 08:00 95 NIV Bilevel 40 12/18/18 08:00 62 10 104/53 (70) 97 NIV Bilevel 30.00 12/18/18 07:17 64 22 98 30.00 I & O 12/19/18 07:00 Intake Total 0 ml Output Total 1165 ml Balance -1165 ml Height & Weight Height: 5'0.00" Weight: 153lbs. 12.0oz. 69.191924pw; 20.6 BMI Method:Stated General Appearance: No Apparent Distress, Anxious, Chronically ill, Cachetic, Mild Distress, Thin Respiratory: Crackles, Decreased Breath Sounds Cardiovascular: Regular Rate, Rhythm, Systolic Murmur Capillary Refill: Less Than 3 Seconds Gastrointestinal: soft, other (ostomy pink with no output in bag/wound bandages dry) Extremity: Pedal Edema Neurologic/Psychiatric: Other (sleeping) Skin: Warm/Dry, Ecchymosis Results Lab Laboratory Tests 12/18/18 04:00 12/18/18 04:01 12/19/18 03:20 Assessment/Plan Assessment/Plan Acute on chronic Respiratory failure -OXygen -SVNS -Monitor -Vapotherm currently Severe abdominal pain with guarding and rebound tenderness s/p acute abdomen secondary to toxic megacolon and ischemia -Dr. Yates is following Severe sepsis with septic shock - improving -Continue Merrem CHF hx EF 30% -Continue Lasix Hypernatremia -Change to D5W COPDAE with pulmonary edema -SVNS -Solumedrol -Lasix Atelectasis with pneumonia -Merrem ARF -monitor Anxiety HTN Weakness -Consult PT/OT GREGOR JOSEPH DO Dec 19, 2018 07:15
--- NOTE | 2018-12-19 07:24 | Diagnostic Imaging Report ---
INDICATION: Rapid response. Bowel obstruction. History of myocardial infarction. Fall. COMPARISON: 12/18/2018 FINDINGS: Single frontal radiographic view of the chest was obtained and demonstrates stable cardiac silhouette and pulmonary vasculature. Right internal jugular central venous catheter is in stable position. Lungs show interval improved aeration in the right base. There is persistent hyperinflation with blunting of the bilateral costophrenic angles. No pneumothorax is seen on either side. Bony structures show no acute interval change. IMPRESSION: 1. Interval improved aeration of the right base. 2. Persistent probable background of COPD with potential small bibasilar effusions. Dictated by: Dictated on workstation # [id number]
[2018-12-19] MEDS ORDERED: RT-ALBUTEROL/IPRATROPIUM 3 ML (DUONEB) VIAL INH PRN (07:30)
[2018-12-19] MEDS ORDERED: FUROSEMIDE 40 MG/4 ML INJ (LASIX) IVP NR ×2 (08:45→19:00)
--- NOTE | 2018-12-19 09:26 | Physical Therapy Daily Note ---
PT Daily Note-Current Subjective Pt in bed and reports that today is not a good day. Pt agrees to PT but reports she is not able to move. Mental Status Patient Orientation: Person, Place, Situation, Normal For Age Attachments: Oxygen (vapotherm 20L at 30%), Drains, Kelley Catheter, IV Transfers Therapy Code Descriptions/Definitions Functional [place] Measure: 0=Not Assessed/NA 4=Minimal Assistance 1=Total Assistance 5=Supervision or Setup 2=Maximal Assistance 6=Modified [place] 3=Moderate Assistance 7=Complete [place] Therapy Quality Codes: 6 Independent with activity with or without an assistive device 5 Patient requires set up or clean up by helper. Patient completes activity by themselves 4 Supervision or touching assist (CGA). [place] provide cues , steadying assist 3 The helper provides less than half the effort to complete the activity 2 The helper provides more than half the effort to complete the activity 1 Dependent. The helper does all the effort to complete an activity 7 Patient refused to complete or attempt activity 9 The patient did not perform the activity before the current illness or injury 88 Not attempted due to Medical conditions or safety concerns Transfers (B, C, W/C) (FIM): 1 Scootin Supine to/from Sit: 1 Weight Bearing Right Lower Extremity: Right Full Weight Bearing Left Lower Extremity: Left Full Weight Bearing Exercises Seated Therapy Exercises: Long arc quads Seated Reps: 3 Assessment Current Status: Poor Progress Pt required total assistance x2 for all bed mobility. Pt was able to sit EOB with max A for balance for 10 min. Pt was able to perform bilateral LAQ x3. Pts SaO2 ranged from 94-86%. SaO2 dropped when pt transferred from supine to sitting and pt able to recover within a minute. Pt supine in bed with all needs met and call light in her hand. PT Short Term Goals Short Term Goals Time Frame: Dec 31, 2018 Gait (FIM): 1 Distance (FIM): 7=168-79 ft Gait Distance Comment: 25' Gait Level of Assist: 5 Gait Assistive Device: FWW PT Plan Problem List Problem List: Activity Tolerance, Functional Strength, Safety, Balance, Gait, Transfer, Bed Mobility, ROM Treatment/Plan Treatment Plan: Continue Plan of Care Treatment Plan: Bed Mobility, Education, Functional Activity [place], Functional Strength, Gait, Safety, Therapeutic Exercise, Transfers Treatment Duration: Dec 31, 2018 Frequency: 5 times per week (increase to 6/wk when medically stable) Estimated Hrs Per Day: .25 hour per day Patient and/or Family Agrees t: Yes Time/GCodes Time In: 815 Time Out: 831 Total Billed Treatment Time: 16 Total Billed Treatment 1 visit FA 16 min JANI WASSERMAN PT Dec 19, 2018 09:26
[2018-12-19] MEDS: RT-ALBUTEROL/IPRATROPIUM 3 ML (DUONEB) VIAL INH SCH ×4 (10:53→22:48)
[2018-12-19] MEDS: LACTOBACILLUS ACIDOPHILUS (PROBIOTIC) CAPSULE PO SCH ×3 (10:55→17:06)
[2018-12-19] MEDS: LOSARTAN 25 MG (COZAAR) TAB PO SCH ×2 (10:56→18:23)
[2018-12-19] MEDS: DILTIAZEM 120 MG (CARDIZEM CD) CAP PO SCH ×2 (10:56→12:03)
[2018-12-19] MEDS: DIGOXIN 62.5 MCG (LANOXIN) TAB PO SCH ×2 (10:56→18:22)
[2018-12-19] MEDS: ASPIRIN E.C. 81 MG (ECOTRIN) TAB PO SCH (10:56)
[2018-12-19] MEDS: SENNA W/DOCUSATE (SENOKOT S) TABLET PO SCH ×2 (10:57→22:29)
[2018-12-19] MEDS: PANTOPRAZOLE 40 MG (PROTONIX) VIAL IV SCH (11:08)
[2018-12-19] MEDS: FUROSEMIDE 40 MG/4 ML INJ (LASIX) IVP SCH (11:08)
[2018-12-19] MEDS: MEROPENEM 500 MG/SWFI 10 ML IV PUSH IV SCH ×4 (11:08→18:22)
[2018-12-19] MEDS: D5W 1000 ML IV SOLUTION 1,000 ML IV SCH (11:09)
[2018-12-19] MEDS: DEXMEDETOMIDINE INJECTION 200 MCG in NS (IVPB) 50 ML IV SCH (11:09)
[2018-12-19] MEDS: ARTIFICAL TEARS 0.4 ML UNIT DOSE (REFRESH PLUS) OU SCH ×3 (11:20→22:30)
--- NOTE | 2018-12-19 11:28 | Progress Note-Cardiology ---
Cardiology SOAP Progress Note Subjective: Gen malaise and weakness. Shortness of breath unchanged No cp or palp or syncope Objective: I&O/Vital Signs 12/19/18 12/19/18 12/19/18 12/19/18 00:00 00:17 01:00 01:00 Temp 99.3 Pulse 89 92 92 Resp 27 16 B/P (MAP) 131/59 (83) 127/58 (81) Pulse Ox 96 95 O2 Delivery NIV Bilevel NIV Bilevel O2 Flow Rate 30.00 30.00 12/19/18 12/19/18 12/19/18 12/19/18 01:23 02:00 03:00 03:44 Pulse 86 90 86 82 Resp 20 17 25 20 B/P (MAP) 123/57 (79) 123/71 (88) Pulse Ox 96 96 96 96 O2 Delivery NIV Bilevel NIV Bilevel O2 Flow Rate 30.00 30.00 30.00 30.00 12/19/18 12/19/18 12/19/18 12/19/18 03:58 04:00 05:00 06:00 Temp 97.4 Pulse 94 86 93 Resp 27 19 14 B/P (MAP) 144/64 (90) 132/52 (78) 146/62 (90) Pulse Ox 99 96 95 O2 Delivery NIV Bilevel NIV Bilevel NIV Bilevel O2 Flow Rate 30.00 30.00 30.00 12/19/18 12/19/18 12/19/18 12/19/18 06:32 06:47 07:00 07:00 Pulse 85 99 98 Resp 20 20 B/P (MAP) 135/61 (85) Pulse Ox 97 94 95 O2 Delivery Vapotherm Vapotherm O2 Flow Rate 30.00 20.00 30.00 20.00 FiO2 30 12/19/18 12/19/18 12/19/18 12/19/18 08:00 08:05 09:00 10:00 Temp 98.1 Pulse 93 86 92 Resp 31 21 20 B/P (MAP) 140/63 (88) 147/61 (89) 151/70 (97) Pulse Ox 94 95 95 O2 Delivery Vapotherm Vapotherm Vapotherm O2 Flow Rate 30.00 30.00 30.00 20.00 20.00 20.00 12/19/18 12/19/18 10:53 11:00 Pulse 92 Resp 22 B/P (MAP) 155/74 (101) Pulse Ox 96 94 O2 Delivery Vapotherm Vapotherm O2 Flow Rate 20.00 30.00 20.00 FiO2 30 12/19/18 00:00 Intake Total 0 ml Output Total 980 ml Balance -980 ml Weight (Pounds): 153 Weight (Ounces): 12.0 Weight (Calculated Kilograms): 69.652802 Constitutional: AAO x 3, other (Off vent, appears weak and tired, appropriately responsive) Respiratory: chest expansion is symmetric, chest is bilaterally symmetric, rhonchi (scattered), other (prolonged expiratory phase) Cardiovascular: No JVD; tachycardia, S1 and S2, systolic murmur Gastrointestional: other (post op abdomen, ileostomy; we did not attempt any deep palp; bs absent) Extremities: swelling (generalized edema) Neurologic/Psychiatric: grossly intact, power is 5/5 both on sides Skin: No rash, No ulcerations; other (multiple abrasions to knees and arms which are under dressings not removed; multiple bruises to arms and legs bilat) Results/Procedures: Labs Laboratory Tests 12/18/18 11:59: Glucometer 128H 12/18/18 17:13: Glucometer 126H 12/19/18 00:16: Glucometer 105 12/19/18 03:20: Sodium Level 145, Potassium Level 4.1, Chloride Level 109H, Carbon Dioxide Level 25, Anion Gap 11, Blood Urea Nitrogen 46H, Creatinine 1.25, Estimat Glomerular Filtration Rate 41, BUN/Creatinine Ratio 37, Glucose Level 92, Calcium Level 8.4L, Magnesium Level 2.1 12/19/18 06:49: Glucometer 94 Microbiology 12/13/18 Blood Culture - Final, Complete No growth 12/05/18 Urine Culture - Final, Complete See Report Laboratory Tests 12/18/18 04:00 12/18/18 04:01 12/19/18 03:20 A/P: Assessment: 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 Cath in 2008, following NSTEMI, had also not shown any significant CAD S/P non-syncopal fall on 12-05-18 resulting in multiple abrasions Chronic kidney disease, stage 3, with some contrast nephropathy post card cath of 12/06/18 TIA on Mar 08 2018 for which she was seen in the ED Severe chronic obstructive pulmonary disease due to prior tobaccoism. Tobaccoism that she quit in 2005. H/O cardiomyopathy with an ejection fraction of 30%, both ischemic and non- ischemic per cardiac catheterization from December 2008. Most recent echocardiogram of May 2017 showed LVEF 55-60%. Mild to mod AoR, TR, and MR. Diastolic dysfunction. Palpitations, probably related to known paroxysmal supraventricular tachycardia/ atrial fibrillation, currently controlled. The patient is considered intolerant to warfarin for several reasons, including episodes of marked epistaxis and hemoptysis, even without warfarin therapy. Also, she is prone to falls, given her generalized frail status. She refuses any oral anticoagulants; agrees only to aspirin for stroke prophylaxis Severe anxiety, currently controlled. Osteoporosis and degenerative joint disease Gastroesophageal reflux. H/O intermittent congestive heart failure due to diastolic and systolic dysfunction of the left ventricle, currently controlled. Hyperlipidemia, well controlled on therapy with simvastatin. H/o left cataract surgery. Mild ascending aortic aneurysm measuring 4.2 cm found incidentally on a CT scan or 07/10/[address] Christine Morales nodules being followed by Dr King Carotid u/s of 04/19/18: less than 40% ROSY, 50-60% LICA stenoses Diagnosis of hypothyroidism in April 2018, managed by Dr Paz, but she has been noncompliant with thyroid replacement therapy Plan: * Complex management due to multiple comorbidities * Blood transfusion recommended. Seems to do much better when Hgb greater than 9 * I had a detailed discussion with her regarding her CV issues and our recommendation of blood transfusion (and its pros and cons). She agrees * Prognosis guarded CASSIE ARANA MD FACP FAC CCDS Dec 19, 2018 11:28
[2018-12-19] MEDS ORDERED: PATIENT MAY USE OWN MEDS, ALL MC SCH (12:45)
[2018-12-19] MEDS ORDERED: CALCIUM CARBONATE 500 MG (TUMS) TAB.CHEW PO PRN (13:15)
--- NOTE | 2018-12-19 13:58 | Occupational Ther Daily Note ---
OT Current Status-Daily Note Subjective Pt in bed , alert, oriented & cooperative. Pt agree for OT Treatment.. Pt states that , " I am doing good today." Pain Numeric Pain Scale: 5-Moderate Pain Location: Right, Soft Tissue Location Body Site: Shoulder Pain Description: Ache, Dull, Sharp Mental Status/Objective Patient Orientation: Person, Place, Time, Situation Therapy Code Descriptions/Definitions Functional [place] Measure: 0=Not Assessed/NA 4=Minimal Assistance 1=Total Assistance 5=Supervision or Setup 2=Maximal Assistance 6=Modified [place] 3=Moderate Assistance 7=Complete [place] Attachments: Colostomy/Ileostomy, Kelley Catheter, IV, Oxygen, Polar Pack, Saline Lock ADL-Treatment Patient participated in Gentle passive & AAROM & strengthening ex to BUE to participate in ADL's .Pt performed 15 reps x 2 sets x 2 lb wts with min A of therapist . 20 reps with hand gripper to strengthen Hand message broker developer. & 15 reps x 2 sets with red theraband BUE in all planes of motion , Monitor SpO2 during therapy session , SpO2 maintain 90 % during Therapy sessions. Pt enjoyed Therapy session without fatigue. Therapist assist during therapy session to prevent fatigue. Education OT Patient Education: Correct positioning, Instructions to caregiver, Safety issues Teaching Recipient: Patient Teaching Methods: Demonstration, Discussion Response to Teaching: Verbalize Understanding, Return Demonstration OT Short Term Goals Short Term Goals Additional Short Term Goals: 1-Demonstrate ADL Tasks, 2-Verbalize Understanding , 3-ImproveStrength/[place] 1=Demonstrate adherence to instructed precautions during ADL tasks. 2=Patient will verbalize/demonstrate understanding of assistive devices/ modifications for ADL. 3=Patient will improve strength/tolerance for activity to enable patient to perform ADL's. OT Wrecking Mechanic Goals Penitentiary Goals Time Frame: Jan 06, 2019 Eating (FIM): 6 Grooming(FIM): 6 Upper Body Dressing(FIM): 5 Lower Body Dressing(FIM): 4 Toileting(FIM): 4 Toilet/Commode Transfer(FIM): 5 Additional Goals: 1-Demonstrate ADL Tasks, 2-Verbalize Understanding, 3- ImproveStrength/[place] 1=Demonstrate adherence to instructed precautions during ADL tasks. 2=Patient will verbalize/demonstrate understanding of assistive devices/ modifications for ADL. 3=Patient will improve strength/tolerance for activity to enable patient to perform ADL's. OT Education/Plan Problem List/Assessment Assessment: Decreased Activ Tolerance, Decreased Safety Aware, Decreased UE Strength, Dependent Transfers, Impaired Bed Mobility, Impaired Coordination, Impaired Funct Balance, Impaired I ADL's, Impaired Self-Care Skills Pt to benefit from skilled OT intervention for ADL training, transfers, strengthening, and safety education to increase level of independence and allow safe discharge. Will increase activity as tolerated. Discharge Recommendations Plan/Recommendations: Continue POC Therapy D/C Recommendations: Home Independently Equpiment Recommendations-D/C: Extended Bath Bench, Extended Shower Sprayer, Dog Groomer, Dressing Stick Treatment Plan/Plan of Care Treatment,Training & Education: Yes Patient would benefit from OT for education, treatment and training to promote independence in ADL's, mobility, safety and/or upper extremity function for ADL' s. Plan of Care: ADL Retraining, Caregiver Training, Functional Mobility, UE Funct Exercise/Act, UE Neuromus Re-Ed/Coord Treatment Duration: Jan 06, 2019 Frequency: 5 times per week Estimated Hrs Per Day: .25 hour per day Agreement: Yes Rehab Potential: Poor Time/GCodes Start Time: 13:00 Stop Time: 13:14 Total Time Billed (hr/min): 14 Billed Treatment Time 1, FA 14 min. Total 14 min. MADELEINE BENNETT OT Dec 19, 2018 13:58
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
--- NOTE | 2018-12-19 14:24 | NUR ---
PATIENT STATES SHE IS NOT GOING TO DO THE IS RIGHT NOW SHE DOESN'T FEEL GOOD; IS IN ROOM AND SET TO GOAL OF 1600; RT AND RN BOTH WAS IN THE ROOM; WILL CONTINUE TO GET PATIENT TO DO THE IS
--- NOTE | 2018-12-19 15:00 | NUR ---
I attempted to visit pt, pt was asleep, I offered quiet prayer by bedside.
--- NOTE | 2018-12-19 16:16 | NUR ---
Pastoral care visit with pts son, pts asleep. Son advised things are going well and pts coping well.
[2018-12-19] MEDS: FAMOTIDINE 20 MG (PEPCID) TABLET PO SCH (17:06)
[2018-12-19 17:12] LABS: HEMOGLOBIN 10.6 G/DL (11.5-16.0)
[2018-12-19] MEDS ORDERED: HYDROcodone/APAP 5 MG/325 MG (LORTAB) TAB ONE (17:34)
[2018-12-19] MEDS: HYDROcodone/APAP 5 MG/325 MG (LORTAB) TAB PO PRN ×2 (17:39→22:30)
--- NOTE | 2018-12-19 18:16 | Progress Note-Standard ---
Standard Progress Note Progress Notes/Assess & Plan Date Seen by a Provider: Dec 19, 2018 Time Seen by a Provider: 18:16 Progress/Assessment & Plan Called by the nurse regarding increased abdominal distention, very severe tenderness and hypotension requiring vasopressor support. On examination, she had evidence of diffuse peritonitis and therefore expiratory laparotomy was felt to be appropriate. 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 I have reviewed the operative details which may involve total colectomy and ileostomy. I've also highlighted increased morbidity, potential for mortality and postoperative complications of intra-abdominal abscess, bleeding etc. The patient and her sons, who happened to be at the bedside, appeared to comprehend the reality of the situation and express their consented to proceed with surgery, that would be conducted emergently. 12/14/18:hemodynamically stable. Levophed being weaned. Urine output satisfactory. White cell count decreasing. Hemoglobin stable. Ileostomy healthy. We'll try early enteral nutrition. Vent weaning to commence in 24-48 hours. continues to improve. Vent weaning expected. Ileostomy pink and healthy. extubated this morning. Appears to be comfortable and interactive. Midline wound reasonably healthy. No fascial dehiscence. Wound VAC would be placed today. NG tube would be removed and clear liquids allowed. slow improvement. Skin very fragile. Ileostomy functioning. Diet could be advanced. We will use an air mattress to minimize the risk of bedsores. Final Diagnosis toxic megacolon DIVYA PEREZ MD Dec 19, 2018 18:16
[2018-12-19] MEDS: ENOXAPARIN 30 MG/0.3 ML (LOVENOX) SYR SC SCH (18:21)
[2018-12-19] MEDS: FLUCONAZOLE IV SCH ×2 (18:22)
--- NOTE | 2018-12-19 19:01 | Progress Note (SOAP) ---
Subjective Date Seen by a Provider: Dec 19, 2018 Time Seen by a Provider: 12:30 Subjective/Events-last exam Fwup Acute on Chronic Respiratory Failure, Severe Sepsis, toxic megacolon--S/P colectomy, pneumonia, COPD with acute exacerbation, UTI, fall with left arm skin tear and knee abrasions, anemia, CHF--acute on chronic. Off BIPAP and on Vapotherm. Very weak. Objective Exam Vital Signs Date Time Temp Pulse Resp B/P (MAP) Pulse Ox O2 Delivery O2 Flow Rate FiO2 12/19/18 18:08 99 25 153/71 (98) 93 Vapotherm 30.00 20.00 12/19/18 17:01 94 23 166/73 (104) 95 Vapotherm 30.00 20.00 12/19/18 16:03 86 18 153/59 (90) 96 Vapotherm 30.00 20.00 12/19/18 15:00 96 58 154/78 (103) 93 Vapotherm 30.00 20.00 12/19/18 14:29 98.4 101 28 145/73 95 Vapotherm 30 12/19/18 14:11 94 Vapotherm 20.00 30 12/19/18 14:00 96 24 145/73 (97) 96 Vapotherm 30.00 20.00 12/19/18 13:00 138 12/19/18 13:00 108 22 153/95 (114) 95 Vapotherm 30.00 20.00 12/19/18 12:10 98.8 103 30 130/72 94 Vapotherm 30 12/19/18 12:00 98.2 12/19/18 12:00 98 26 130/72 (91) 95 Vapotherm 30.00 20.00 12/19/18 11:45 97.1 90 29 155/74 94 Vapotherm 30 12/19/18 11:00 92 22 155/74 (101) 94 Vapotherm 30.00 20.00 12/19/18 10:53 96 Vapotherm 20.00 30 12/19/18 10:00 92 20 151/70 (97) 95 Vapotherm 30.00 20.00 12/19/18 09:00 86 21 147/61 (89) 95 Vapotherm 30.00 20.00 12/19/18 08:05 98.1 12/19/18 08:00 93 31 140/63 (88) 94 Vapotherm 30.00 20.00 12/19/18 07:00 98 12/19/18 07:00 99 20 135/61 (85) 95 Vapotherm 30.00 20.00 12/19/18 06:47 94 Vapotherm 20.00 30 12/19/18 06:32 85 20 97 30.00 12/19/18 06:00 93 14 146/62 (90) 95 NIV Bilevel 30.00 12/19/18 05:00 86 19 132/52 (78) 96 NIV Bilevel 30.00 12/19/18 04:00 94 27 144/64 (90) 99 NIV Bilevel 30.00 12/19/18 03:58 97.4 12/19/18 03:44 82 20 96 30.00 12/19/18 03:00 86 25 123/71 (88) 96 NIV Bilevel 30.00 12/19/18 02:00 90 17 123/57 (79) 96 NIV Bilevel 30.00 12/19/18 01:23 86 20 96 30.00 12/19/18 01:00 92 16 127/58 (81) 95 NIV Bilevel 30.00 12/19/18 01:00 92 12/19/18 00:17 99.3 12/19/18 00:00 89 27 131/59 (83) 96 NIV Bilevel 30.00 12/18/18 23:02 94 21 95 30.00 12/18/18 23:00 95 24 123/58 (79) 95 NIV Bilevel 30.00 12/18/18 22:00 90 19 139/67 (91) 97 NIV Bilevel 30.00 12/18/18 21:24 99 24 96 30.00 12/18/18 21:00 94 29 151/74 (99) 95 NIV Bilevel 30.00 12/18/18 20:30 98.7 96 20 133/58 (83) NIV Bilevel 12/18/18 19:42 98.4 12/18/18 19:12 NIV Bilevel 30 12/18/18 19:09 81 20 97 30.00 12/18/18 19:00 80 12/18/18 19:00 80 20 129/63 (85) 96 NIV Bilevel 30.00 I & O 12/19/18 07:00 Intake Total 0 ml Output Total 1315 ml Balance -1315 ml Capillary Refill : Less Than 3 SecondsLess Than 3 Seconds General Appearance: Moderate Distress Neck: Supple Respiratory: Decreased Breath Sounds, Wheezing Cardiovascular: Systolic Murmur, Gallop/S4, Tachycardia Gastrointestinal: normal bowel sounds, non tender, soft, other (output in ostomy) Extremity: Non Tender, No Calf Tenderness, Pedal Edema Neurologic/Psychiatric: Alert Skin: Ecchymosis Results Lab Laboratory Tests 12/19/18 00:16: Glucometer 105 12/19/18 03:20: Sodium Level 145, Potassium Level 4.1, Chloride Level 109H, Carbon Dioxide Level 25, Anion Gap 11, Blood Urea Nitrogen 46H, Creatinine 1.25, Estimat Glomerular Filtration Rate 41, BUN/Creatinine Ratio 37, Glucose Level 92, Calcium Level 8.4L, Magnesium Level 2.1 12/19/18 06:49: Glucometer 94 12/19/18 11:59: Glucometer 101 12/19/18 17:00: Hemoglobin 10.6#L, Hematocrit 33L 12/19/18 17:11: Glucometer 89 Microbiology 12/13/18 Blood Culture - Final, Complete No growth 12/05/18 Urine Culture - Final, Complete See Report Assessment/Plan Assessment/Plan Assess & Plan/Chief Complaint 1. Toxic Megacolon--S/P surgery with colectomy and ileostomy, surgery advancing diet 2. Acute Exacerbation of COPD--on weaning dose of solumedrol 3. RLL Pneumonia--cont Maxipime 4. Fall with left wrist skin tear and left knee contusion--wounds dressed 5. Thrush--on diflucan 6. Acute Renal Insufficiency--hydrate and monitor Cr 7. Acute on Chronic Respiratory Failure--off ventilator, on vapotherm 8. Acute on Chronic Diastolic CHF--on IV lasix and diuresing well 9. Acute on Chronic Anemia--recieving transfusion, monitor H/H 10. Severe Sepsis--on maxipime and sepsis protocol 11. Sever Debility--condition very guarded, I discussed hospice with patient's daughter and grandson Clinical Quality Measures Admission Status Admission Dx 1. Acute non STEMI--admit to cardiac in ICU on Brilinta and Heparin with cardiac catheterization by cardiology 2. Hypertension--resume home meds 3. COPD--oxygen, nebulizer treatments 4. UTI--started on Bactrim 5. Chronic Anemia--monitor H/H 6. Left wrist skin tear and abrasions from fall--dressed and will monitor for bleeding with blood thinners DVT/VTE Risk/Contraindication: Risk Factor Score Per Nursin RFS Level Per Nursing on Admit: 3=High MELODY MCGEE DO Dec 19, 2018 19:01
[2018-12-19] MEDS: MIRTAZAPINE 15 MG (REMERON) TAB PO SCH (22:29)
[2018-12-19] MEDS: ATORVASTATIN 40 MG (LIPITOR) TABLET PO SCH (22:30)
[2018-12-20] VITALS (17 sets, daily range): BP systolic 112–149; BP diastolic 49–77
[2018-12-20] MEDS: RT-ALBUTEROL/IPRATROPIUM 3 ML (DUONEB) VIAL INH SCH ×6 (02:22→22:29)
--- NOTE | 2018-12-20 04:04 | Pulmonary Progress Note ---
Subjective Time Seen by a Provider: 04:03 Subjective/Events-last exam C/o generalized pain, and SOB. Sepsis Event Evaluation Height, Weight, BMI Height: 5'0.00" Weight: 153lbs. 12.0oz. [id number]; 20.6 BMI Method:Stated Exam Exam Vital Signs Date Time Temp Pulse Resp B/P (MAP) Pulse Ox O2 Delivery O2 Flow Rate FiO2 12/20/18 03:00 81 15 119/53 (75) 100 Vapotherm 30.00 20.00 12/20/18 02:22 99 Vapotherm 15.00 30 12/20/18 02:00 81 16 113/52 (72) 100 Vapotherm 30.00 20.00 12/20/18 01:00 80 12/20/18 01:00 84 18 116/58 (77) 100 Vapotherm 30.00 20.00 12/20/18 00:00 86 18 145/76 (99) 100 Vapotherm 30.00 20.00 12/19/18 23:00 97 32 150/87 (108) 100 Vapotherm 30.00 20.00 12/19/18 22:50 95 Vapotherm 15.00 30 12/19/18 22:00 94 26 150/84 (106) 98 Vapotherm 30.00 20.00 12/19/18 21:00 89 26 140/76 (97) 95 Vapotherm 30.00 20.00 12/19/18 20:00 92 21 141/76 (97) 93 Vapotherm 30.00 20.00 12/19/18 19:00 95 12/19/18 19:00 97 26 153/70 (97) 95 Vapotherm 30.00 20.00 12/19/18 18:54 Vapotherm 12/19/18 18:42 93 Vapotherm 15.00 30 12/19/18 18:08 99 25 153/71 (98) 93 Vapotherm 30.00 20.00 12/19/18 17:01 94 23 166/73 (104) 95 Vapotherm 30.00 20.00 12/19/18 16:03 86 18 153/59 (90) 96 Vapotherm 30.00 20.00 12/19/18 15:00 96 58 154/78 (103) 93 Vapotherm 30.00 20.00 12/19/18 14:29 98.4 101 28 145/73 95 Vapotherm 30 12/19/18 14:11 94 Vapotherm 20.00 30 12/19/18 14:00 96 24 145/73 (97) 96 Vapotherm 30.00 20.00 12/19/18 13:00 138 12/19/18 13:00 108 22 153/95 (114) 95 Vapotherm 30.00 20.00 12/19/18 12:10 98.8 103 30 130/72 94 Vapotherm 30 12/19/18 12:00 98.2 12/19/18 12:00 98 26 130/72 (91) 95 Vapotherm 30.00 20.00 12/19/18 11:45 97.1 90 29 155/74 94 Vapotherm 30 12/19/18 11:00 92 22 155/74 (101) 94 Vapotherm 30.00 20.00 12/19/18 10:53 96 Vapotherm 20.00 30 12/19/18 10:00 92 20 151/70 (97) 95 Vapotherm 30.00 20.00 12/19/18 09:00 86 21 147/61 (89) 95 Vapotherm 30.00 20.00 12/19/18 08:05 98.1 12/19/18 08:00 93 31 140/63 (88) 94 Vapotherm 30.00 20.00 12/19/18 07:00 98 12/19/18 07:00 99 20 135/61 (85) 95 Vapotherm 30.00 20.00 12/19/18 06:47 94 Vapotherm 20.00 30 12/19/18 06:32 85 20 97 30.00 12/19/18 06:00 93 14 146/62 (90) 95 NIV Bilevel 30.00 12/19/18 05:00 86 19 132/52 (78) 96 NIV Bilevel 30.00 I & O 12/20/18 07:00 Intake Total 800 ml Output Total 1925 ml Balance -1125 ml Height & Weight Height: 5'0.00" Weight: 153lbs. 12.0oz. [id number]; 20.6 BMI Method:Stated General Appearance: Moderate Distress Neck: Supple Respiratory: Decreased Breath Sounds, Wheezing Cardiovascular: Systolic Murmur, Gallop/S4, Tachycardia Capillary Refill: Less Than 3 Seconds Gastrointestinal: normal bowel sounds, non tender, soft, other (output in ostomy) Extremity: Non Tender, No Calf Tenderness, Pedal Edema Neurologic/Psychiatric: Alert Skin: Ecchymosis Results Lab Laboratory Tests 12/19/18 03:20 12/19/18 17:00 Assessment/Plan Assessment/Plan Acute on chronic Respiratory failure -OXygen -SVNS -Monitor -Vapotherm currently Severe abdominal pain with guarding and rebound tenderness s/p acute abdomen secondary to toxic megacolon and ischemia -Dr. Yates is following Severe sepsis with septic shock - improving -Continue Merrem CHF hx EF 30% -Continue Lasix Hypernatremia -Change to D5W COPDAE with pulmonary edema -SVNS -Solumedrol -Lasix Atelectasis with pneumonia -Merrem ARF -monitor Anxiety HTN Weakness -Consult PT/OT GREGOR JOSEPH DO Dec 20, 2018 04:04
[2018-12-20] MEDS: ACETAMINOPHEN 325 MG TABLET PO SCH ×4 (04:22→23:07)
[2018-12-20] MEDS: morphine INJ 4 MG/ML 1 ML (VIAL/SYRINGE) IVP PRN ×2 (04:22→12:10)
[2018-12-20] MEDS: inSUlin ASPART (NovoLOG) 1 UNIT/0.01 ML (CHARGE PER UNIT) SQ SCH ×4 (04:23→18:18)
[2018-12-20] MEDS: NYSTATIN ORAL SUSP 5 ML UDC PO SCH ×5 (04:23→23:07)
[2018-12-20] MEDS: MEROPENEM 500 MG/SWFI 10 ML IV PUSH IV SCH ×6 (04:23→21:01)
[2018-12-20] MEDS: DEXMEDETOMIDINE INJECTION 200 MCG in NS (IVPB) 50 ML IV SCH ×2 (04:23→18:31)
[2018-12-20 05:00] LABS: HEMOGLOBIN 10.3 G/DL (11.5-16.0); MEAN PLATELET VOLUME 9.9 FL (7.4-10.4); RED CELL DISTRIBUTION WIDTH 16.9 % (10.0-14.5); WHITE BLOOD COUNT 14.6 10^3/uL (4.3-11.0)
[2018-12-20 05:10] LABS: CALCIUM 8.3 MG/DL (8.5-10.1); CREATININE SERUM 1.23 MG/DL (0.60-1.30); MAGNESIUM 1.9 MG/DL (1.8-2.4); POTASSIUM 3.7 MMOL/L (3.6-5.0)
[2018-12-20] MEDS: RT-ADVAIR HFA 115/21 MCG PER PUFF IH SCH ×2 (06:19→20:57)
[2018-12-20] MEDS: UMECLIDINIUM BROMIDE (INCRUSE ELLIPTA) 7'S IH SCH (06:19)
[2018-12-20] MEDS: methylPREDNISolone 40 MG/ML (Solu-MEDROL) VIAL IV SCH ×2 (06:36→13:51)
[2018-12-20] MEDS: KCL 20 MEQ TAB (K-DUR) PO SCH (06:36)
[2018-12-20] MEDS: MAGNESIUM 1 GM/100 ML IVPB 100 ML IV SCH (06:38)
[2018-12-20] MEDS: POTASSIUM CL 10MEQ/50ML IVPB 50 ML IV SCH (06:38)
--- NOTE | 2018-12-20 08:45 | Progress Note-Cardiology ---
Cardiology SOAP Progress Note Subjective: Sitting up in bed. Feels her breathing is better today. No c/o CP or palpitations. C/O gen weakness. Objective: I&O/Vital Signs 12/20/18 12/20/18 12/20/18 12/20/18 01:00 01:00 02:00 02:22 Pulse 84 80 81 Resp 18 16 B/P (MAP) 116/58 (77) 113/52 (72) Pulse Ox 100 100 99 O2 Delivery Vapotherm Vapotherm Vapotherm O2 Flow Rate 30.00 30.00 15.00 20.00 20.00 FiO2 30 12/20/18 12/20/18 12/20/18 12/20/18 03:00 04:00 04:00 05:00 Temp 97.5 Pulse 81 80 99 Resp 15 17 10 B/P (MAP) 119/53 (75) 112/51 (71) 149/68 (95) Pulse Ox 100 98 94 O2 Delivery Vapotherm Vapotherm Vapotherm O2 Flow Rate 30.00 30.00 30.00 20.00 20.00 20.00 12/20/18 12/20/18 12/20/18 12/20/18 06:00 06:14 06:14 06:22 Pulse 90 Resp 23 B/P (MAP) 130/69 (89) Pulse Ox 94 97 100 O2 Delivery Vapotherm Vapotherm High Flow N/C High Flow N/C O2 Flow Rate 30.00 15.00 6.00 6.00 20.00 FiO2 30 12/20/18 12/20/18 12/20/18 12/20/18 07:00 07:00 08:00 09:00 Pulse 90 90 80 90 Resp 20 12 18 B/P (MAP) 134/68 (90) 112/49 (70) 146/56 (86) Pulse Ox 98 100 100 O2 Delivery High Flow N/C High Flow N/C High Flow N/C O2 Flow Rate 6.00 6.00 6.00 12/20/18 10:00 Pulse 95 Resp 25 B/P (MAP) 121/77 (92) Pulse Ox 100 O2 Delivery High Flow N/C O2 Flow Rate 6.00 12/20/18 00:00 Intake Total 1000 ml Output Total 2100 ml Balance -1100 ml Weight (Pounds): 152 Weight (Ounces): 12.0 Weight (Calculated Kilograms): 68.888807 Constitutional: AAO x 3, other (Off vent, appears weak and tired, appropriately responsive) Respiratory: chest expansion is symmetric, chest is bilaterally symmetric, rhonchi (scattered), other (prolonged expiratory phase) Cardiovascular: No JVD; tachycardia, S1 and S2, systolic murmur Gastrointestional: other (post op abdomen, ileostomy) Extremities: swelling (generalized edema) Neurologic/Psychiatric: grossly intact, power is 5/5 both on sides Skin: No rash, No ulcerations; other (multiple abrasions to knees and arms which are under dressings not removed; multiple bruises to arms and legs bilat) Results/Procedures: Labs Laboratory Tests 12/19/18 17:00: Hemoglobin 10.6#L, Hematocrit 33L 12/19/18 17:11: Glucometer 89 12/20/18 01:21: Glucometer 88 12/20/18 04:32: Hemoglobin 10.3L, Hematocrit 32L, White Blood Count 14.6H, Red Blood Count 3.62L , Mean Corpuscular Volume 88, Mean Corpuscular Hemoglobin 29, Mean Corpuscular Hemoglobin Concent 33, Red Cell Distribution Width 16.9H, Platelet Count 236, Mean Platelet Volume 9.9, Sodium Level 144, Potassium Level 3.7, Chloride Level 104, Carbon Dioxide Level 29, Anion Gap 11, Blood Urea Nitrogen 51H, Creatinine 1.23, Estimat Glomerular Filtration Rate 42, BUN/Creatinine Ratio 41, Glucose Level 100, Calcium Level 8.3L, Magnesium Level 1.9 Microbiology 12/13/18 Blood Culture - Final, Complete No growth 12/05/18 Urine Culture - Final, Complete See Report A/P: Assessment: Surgery for toxic megacolon and ischemic bowel on 12/14/18 - s/p ileostomy Ac on chronic resp failure due to ac exac of COPD and ac giron CHF Marked anemia of undetermined etiology, followed and treated by the [facility], s/ p transfusion Ac NSTEMI, but card cath of 12/06/18 shows only minimal CAD and elevated LVEDP. Cath in 2008, following NSTEMI, had also not shown any significant CAD S/P non-syncopal fall on 12-05-18 resulting in multiple abrasions Chronic kidney disease, stage 3, with some contrast nephropathy post card cath of 12/06/18 TIA on Mar 08 2018 for which she was seen in the ED Severe chronic obstructive pulmonary disease due to prior tobaccoism. Tobaccoism that she quit in 2005. H/O cardiomyopathy with an ejection fraction of 30%, both ischemic and non- ischemic per cardiac catheterization from December 2008. Most recent echocardiogram of May 2017 showed LVEF 55-60%. Mild to mod AoR, TR, and MR. Diastolic dysfunction. Palpitations, probably related to known paroxysmal supraventricular tachycardia/ atrial fibrillation, currently controlled. The patient is considered intolerant to warfarin for several reasons, including episodes of marked epistaxis and hemoptysis, even without warfarin therapy. Also, she is prone to falls, given her generalized frail status. She refuses any oral anticoagulants; agrees only to aspirin for stroke prophylaxis Severe anxiety, currently controlled. Osteoporosis and degenerative joint disease Gastroesophageal reflux. H/O intermittent congestive heart failure due to diastolic and systolic dysfunction of the left ventricle, currently controlled. Hyperlipidemia, well controlled on therapy with simvastatin. H/o left cataract surgery. Mild ascending aortic aneurysm measuring 4.2 cm found incidentally on a CT scan or 07/10/[address] Christine Morales nodules being followed by Dr King Carotid u/s of 04/19/18: less than 40% ROSY, 50-60% LICA stenoses Diagnosis of hypothyroidism in April 2018, managed by Dr Paz, but she has been noncompliant with thyroid replacement therapy Plan: * Complex management due to multiple comorbidities * H/H improved following transfusion * Gen weakness - continue PT * Monitor lab closely * Prognosis guarded Physician Assessment Physician Assessment Gen malaise and weakness. Shortness of breath as before. No cp or palp or syncope Lungs: fair air entry, diminished at bases Cor: reg Ext: mod bilat leg edema A&R * As documented in our note above that I updated (italics) and as noted below * Monitor labs * I spoke with her and her daughter from [place] (who was by her bedside) and discussed her CV issues KEE DAMON Dec 20, 2018 08:45 CASSIE ARANA MD [facility] Dec 20, 2018 12:52
[2018-12-20] MEDS: FUROSEMIDE 40 MG/4 ML INJ (LASIX) IVP SCH (09:17)
[2018-12-20] MEDS: SENNA W/DOCUSATE (SENOKOT S) TABLET PO SCH ×2 (09:17→21:01)
[2018-12-20] MEDS: DIGOXIN 62.5 MCG (LANOXIN) TAB PO SCH (09:17)
[2018-12-20] MEDS: ARTIFICAL TEARS 0.4 ML UNIT DOSE (REFRESH PLUS) OU SCH ×3 (09:17→21:02)
[2018-12-20] MEDS: PANTOPRAZOLE 40 MG (PROTONIX) VIAL IV SCH (09:17)
[2018-12-20] MEDS: LACTOBACILLUS ACIDOPHILUS (PROBIOTIC) CAPSULE PO SCH ×3 (09:18→17:08)
[2018-12-20] MEDS: LOSARTAN 25 MG (COZAAR) TAB PO SCH (09:18)
[2018-12-20] MEDS: ASPIRIN E.C. 81 MG (ECOTRIN) TAB PO SCH (09:18)
[2018-12-20] MEDS: DILTIAZEM 120 MG (CARDIZEM CD) CAP PO SCH (09:21)
--- NOTE | 2018-12-20 09:30 | NUR ---
Report given to CHARBEL Catalan
--- NOTE | 2018-12-20 10:26 | Occupational Ther Daily Note ---
OT Current Status-Daily Note Subjective Pt alert, lying in bed. Pt agrees to therapy. Pt to move to 4th floor. Family present in room. Mental Status/Objective Patient Orientation: Person, Place, Time, Situation Therapy Code Descriptions/Definitions Functional Jay Measure: 0=Not Assessed/NA 4=Minimal Assistance 1=Total Assistance 5=Supervision or Setup 2=Maximal Assistance 6=Modified Jay 3=Moderate Assistance 7=Complete Jay Attachments: Drains, Kelley Catheter, IV (midline), Oxygen, Telemetry Other Treatment Medium resistance theraband exercises to increase strength and activity tolerance. Pt able to complete tricep exercises slowly and reminders to breath not hold breath, 3 sets 5 reps with recovery time between sets, O2 stayed above 90. 2nd exercise B UE, pt able to tense arms and extend/abd minimally, 3 sets 5 reps with recovery breaks. Pt unable to complete shldr flexion and abd/add with AROM. Pt was able to complete with AAROM without pain. Pt completed 4 bicep curls with assist, O2 fell below 90, immediately stopped and cued pt deep breathing, increased slowly to above 90. After therapy, pt lying in bed with call light/phone in reach. All needs met in room. OT Short Term Goals Short Term Goals Additional Short Term Goals: 1-Demonstrate ADL Tasks, 2-Verbalize Understanding , 3-ImproveStrength/[place] 1=Demonstrate adherence to instructed precautions during ADL tasks. 2=Patient will verbalize/demonstrate understanding of assistive devices/ modifications for ADL. 3=Patient will improve strength/tolerance for activity to enable patient to perform ADL's. OT Prison Goals Prison Goals Time Frame: Jan 06, 2019 Eating (FIM): 6 Grooming(FIM): 6 Upper Body Dressing(FIM): 5 Lower Body Dressing(FIM): 4 Toileting(FIM): 4 Toilet/Commode Transfer(FIM): 5 Additional Goals: 1-Demonstrate ADL Tasks, 2-Verbalize Understanding, 3- ImproveStrength/[place] 1=Demonstrate adherence to instructed precautions during ADL tasks. 2=Patient will verbalize/demonstrate understanding of assistive devices/ modifications for ADL. 3=Patient will improve strength/tolerance for activity to enable patient to perform ADL's. OT Education/Plan Problem List/Assessment Pt to benefit from skilled OT intervention for ADL training, transfers, strengthening, and safety education to increase level of independence and allow safe discharge. Will increase activity as tolerated. Discharge Recommendations Plan/Recommendations: Continue POC Treatment Plan/Plan of Care Patient would benefit from OT for education, treatment and training to promote independence in ADL's, mobility, safety and/or upper extremity function for ADL' s. Plan of Care: ADL Retraining, Caregiver Training, Functional Mobility, UE Funct Exercise/Act, UE Neuromus Re-Ed/Coord Treatment Duration: Jan 06, 2019 Frequency: 5 times per week Estimated Hrs Per Day: .25 hour per day Agreement: Yes Rehab Potential: Fair Time/GCodes Start Time: 09:50 Stop Time: 10:10 Total Time Billed (hr/min): 20 Billed Treatment Time 1 visit-EX 1 (20 min) JO ANN LUNA Dec 20, 2018 10:26
--- NOTE | 2018-12-20 10:55 | Diagnostic Imaging Report ---
INDICATION: ] Rapid response. Non-ST elevated myocardial infarction. Fall. TECHNIQUE: Single view chest 3:28 AM. CORRELATION STUDY: 12/19/2018 FINDINGS: Increasing density right lung base may be reflective of atelectasis, infiltrate or perhaps aspiration. The right pleural effusion. Additional emphysematous change about the lung parenchyma. Areas of fibrosis about the lung apices. Heart size and mediastinum are unremarkable. Right IJ central line stable. IMPRESSION: 1. Increasing density right lung base could be reflective of underlying infiltrate, aspiration and/or effusion. Dictated by: Dictated on workstation # [id number]
--- NOTE | 2018-12-20 11:06 | NUR ---
PT C/O OF FEELING LIKE HER HEART WAS BOUNDING. PT HAD JUST FINISHED WITH PHYSICAL THERAPY. PT DENIES DIZZINESS OR SOB. AUSCULTATED PT HEART AND IT IS IRREGULAR. ADVISED HER THAT PT IS WHY HER HEART RATE IS UP. ENCOURAGED HER TO RELAX AND REST AT THIS TIME AND IF PT STARTS TO FEEL CHEST PAIN, SOB, NAUSEA OR DIZZY TO CALL FOR NURSE. FAMILY AT BEDSIDE. ADVISED BRAD PT PRIMARY NURSE.
--- NOTE | 2018-12-20 11:12 | Speech Therapy Daily Note ---
Speech Daily Progress Note Subjective Date Seen by Provider: Dec 20, 2018 Time Seen by Provider: 15:00 Patient was alert and able to answer my questions appropriately. Objective Patient was able to follow directions for safe oral intake at 75% with moderate verbal cues. Treatment Plan Continue Plan of Care Speech Short Term Goals Short Term Goals Short Term Goals 1) Patient will tolerate the least restrictive diet level without s/s of aspiration at 90% or greater. 2) Patient will follow compensatory strategies as trained for safe oral intake at 90% or greater. Speech Modeling Instructor Goals Modeling Instructor Goals Patient will maintain adequate nutrition and hydration via safe effective swallow function. Speech-Plan Patient/Family Goals Patient/Family Goals: Patient plans to return home with family support upon discharge from the hospital. Treatment Plan Speech Therapy Treatment Plan: Continue Plan of Care Patient is progressing. Treatment Duration: Dec 23, 2018 Frequency: 5 times per week Estimated Hrs Per Day: .25 hour per day Rehab Potential: Fair Barriers to Learning: Patient is medically complex. Pt/Family Agrees to Plan: Yes Safety Risks/Education Teaching Recipient: Patient, Family Teaching Methods: Discussion Response to Teaching: Verbalize Understanding Education Topics Provided: Safety of oral intake. Time Speech Therapy Time In: 10:10 Speech Therapy Time Out: 10:25 Total Billed Time: 15 Billed Treatment Time [address] Dec 20, 2018 11:12
--- NOTE | 2018-12-20 11:37 | Physical Therapy Daily Note ---
PT Daily Note-Current Subjective Pt in bed with family in room and agrees to PT. Pain Numeric Pain Scale: 0-No Pain Location: No Pain Reported Mental Status Patient Orientation: Person, Place, Situation, Normal For Age Attachments: Oxygen (5L), Drains, Kelley Catheter Transfers Therapy Code Descriptions/Definitions Functional [place] Measure: 0=Not Assessed/NA 4=Minimal Assistance 1=Total Assistance 5=Supervision or Setup 2=Maximal Assistance 6=Modified [place] 3=Moderate Assistance 7=Complete [place] Therapy Quality Codes: 6 Independent with activity with or without an assistive device 5 Patient requires set up or clean up by helper. Patient completes activity by themselves 4 Supervision or touching assist (CGA). Umbarger provide cues , steadying assist 3 The helper provides less than half the effort to complete the activity 2 The helper provides more than half the effort to complete the activity 1 Dependent. The helper does all the effort to complete an activity 7 Patient refused to complete or attempt activity 9 The patient did not perform the activity before the current illness or injury 88 Not attempted due to Medical conditions or safety concerns Transfers (B, C, W/C) (FIM): 1 Scootin Supine to/from Sit: 1 Weight Bearing Right Lower Extremity: Right Full Weight Bearing Left Lower Extremity: Left Full Weight Bearing Exercises Supine Ex: Ankle pumps, Heel Slides, Hip abd/add Supine Reps: 10 Seated Therapy Exercises: Long arc quads Seated Reps: 5 Assessment Current Status: Fair Progress Pt was able to perform AAROM with use of PT of ankle pumps, heel slides, and hip abd. Pt required dependent A x2 to transfer from supine to sitting EOB. Pt remained sitting for 10 min with on and off CGA. Pt was able to perform LAQ bilateral x5 reps. Pt was fatigued by tx and requested to return to laying down. Pt is positioned on R side with pillow behind back and between knees. Pt has all needs met with family in room. PT Short Term Goals Short Term Goals Time Frame: Dec 31, 2018 Gait (FIM): 1 Distance (FIM): 0=081-53 ft Gait Distance Comment: 25' Gait Level of Assist: 5 Gait Assistive Device: FWW PT Plan Problem List Problem List: Activity Tolerance, Functional Strength, Safety, Balance, Gait, Transfer, Bed Mobility, ROM Treatment/Plan Treatment Plan: Continue Plan of Care Treatment Plan: Bed Mobility, Education, Functional Activity [place], Functional Strength, Gait, Safety, Therapeutic Exercise, Transfers Treatment Duration: Dec 31, 2018 Frequency: 5 times per week (increase to 6/wk when medically stable) Estimated Hrs Per Day: .25 hour per day Patient and/or Family Agrees t: Yes Time/GCodes Time In: 1100 Time Out: 1124 Total Billed Treatment Time: 24 Total Billed Treatment 1 visit EX 12 min FA 12 min JANI WASSERMAN PT Dec 20, 2018 11:37
[2018-12-20] MEDS: HYDROcodone/APAP 5 MG/325 MG (LORTAB) TAB PO PRN (12:11)
--- NOTE | 2018-12-20 12:13 | Progress Note-Standard ---
Standard Progress Note Progress Notes/Assess & Plan Date Seen by a Provider: Dec 20, 2018 Time Seen by a Provider: 12:13 Progress/Assessment & Plan Called by the nurse regarding increased abdominal distention, very severe tenderness and hypotension requiring vasopressor support. On examination, she had evidence of diffuse peritonitis and therefore expiratory laparotomy was felt to be appropriate. 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 I have reviewed the operative details which may involve total colectomy and ileostomy. I've also highlighted increased morbidity, potential for mortality and postoperative complications of intra-abdominal abscess, bleeding etc. The patient and her sons, who happened to be at the bedside, appeared to comprehend the reality of the situation and express their consented to proceed with surgery, that would be conducted emergently. 12/14/18:hemodynamically stable. Levophed being weaned. Urine output satisfactory. White cell count decreasing. Hemoglobin stable. Ileostomy healthy. We'll try early enteral nutrition. Vent weaning to commence in 24-48 hours. continues to improve. Vent weaning expected. Ileostomy pink and healthy. extubated this morning. Appears to be comfortable and interactive. Midline wound reasonably healthy. No fascial dehiscence. Wound VAC would be placed today. NG tube would be removed and clear liquids allowed. slow improvement. Skin very fragile. Ileostomy functioning. Diet could be advanced. We will use an air mattress to minimize the risk of bedsores. Continues to improve. Oral intake better Final Diagnosis Toxic megacolon DIVYA PEREZ MD Dec 20, 2018 12:13
[2018-12-20] MEDS ORDERED: PATIENT MAY USE OWN MEDS, ALL MC SCH (13:15)
--- NOTE | 2018-12-20 13:21 | NUR ---
1030 PT TRANSFERRED TO ROOM 417 VIA BED ACCOMPANIED BY THIS RN AND THERAPY SITE COORDINATOR. PT TRANSFERRED ON 02 AT 6L NC, ALL PERSONAL BELONGINGS SENT DOWN WITH PT. REPORT RECEIVED FROM Glory ANDERSON RN PRIOR TO TRANSFER. PT POSITIONED PER COMFORT, FAMILY MEMBERS AT BEDSIDE,CALL LIGHT AND OTHER PERSONAL ITEMS WITHIN REACH, NO NEEDS NOTED AT THIS TIME, WILL CONTINUE TO MONITOR.
[2018-12-20] MEDS: chlordiazePOXIDE 25 MG (LIBRIUM) CAP NON-FORMULARY PO SCH ×2 (13:51→21:07)
--- NOTE | 2018-12-20 14:02 | NUR ---
Spoke with pt and family reference ostomy care and supplies. Explained to pt and family that I would talk to them a couple times during there stay so as not to overwhelm them with to much information at one time. Pt and family very receptive to teaching.
--- NOTE | 2018-12-20 14:27 | NUR ---
PT STARTING TO EAT AGAIN. WILL BEGIN SUPPLEMENTS TO INCREASE PO INTAKE. CONT TO FOLLOW.
[2018-12-20] MEDS: FAMOTIDINE 20 MG (PEPCID) TABLET PO SCH (17:08)
[2018-12-20] MEDS: ENOXAPARIN 30 MG/0.3 ML (LOVENOX) SYR SC SCH (17:08)
--- NOTE | 2018-12-20 17:20 | Progress Note (SOAP) ---
Subjective Date Seen by a Provider: Dec 20, 2018 Time Seen by a Provider: 12:30 Subjective/Events-last exam Fwup Acute on Chronic Respiratory Failure, Severe Sepsis, toxic megacolon--S/P colectomy, pneumonia, COPD with acute exacerbation, UTI, fall with left arm skin tear and knee abrasions, anemia, CHF--acute on chronic. Has been transferred to the medical floor and is in process of getting wound vac and ostomy changed. Wound and ostomy look good with no erythema and no drainage. Did sit up on the side of the bed with PT this morning. Objective Exam Vital Signs Date Time Temp Pulse Resp B/P (MAP) Pulse Ox O2 Delivery O2 Flow Rate FiO2 12/20/18 13:00 91 12/20/18 11:30 97.0 92 18 115/60 (78) 100 Nasal Cannula 5.00 12/20/18 11:00 97.0 92 18 115/60 (78) 100 Nasal Cannula 5.00 12/20/18 10:00 95 25 121/77 (92) 100 High Flow N/C 6.00 12/20/18 09:00 90 18 146/56 (86) 100 High Flow N/C 6.00 12/20/18 08:00 80 12 112/49 (70) 100 High Flow N/C 6.00 12/20/18 07:00 90 20 134/68 (90) 98 High Flow N/C 6.00 12/20/18 07:00 90 12/20/18 06:22 100 High Flow N/C 6.00 12/20/18 06:14 High Flow N/C 6.00 12/20/18 06:14 97 Vapotherm 15.00 30 12/20/18 06:00 90 23 130/69 (89) 94 Vapotherm 30.00 20.00 12/20/18 05:00 99 10 149/68 (95) 94 Vapotherm 30.00 20.00 12/20/18 04:00 80 17 112/51 (71) 98 Vapotherm 30.00 20.00 12/20/18 04:00 97.5 12/20/18 03:00 81 15 119/53 (75) 100 Vapotherm 30.00 20.00 12/20/18 02:22 99 Vapotherm 15.00 30 12/20/18 02:00 81 16 113/52 (72) 100 Vapotherm 30.00 20.00 12/20/18 01:00 80 12/20/18 01:00 84 18 116/58 (77) 100 Vapotherm 30.00 20.00 12/20/18 00:00 98.1 12/20/18 00:00 86 18 145/76 (99) 100 Vapotherm 30.00 20.00 12/19/18 23:00 97 32 150/87 (108) 100 Vapotherm 30.00 20.00 12/19/18 22:50 95 Vapotherm 15.00 30 12/19/18 22:00 94 26 150/84 (106) 98 Vapotherm 30.00 20.00 12/19/18 21:00 89 26 140/76 (97) 95 Vapotherm 30.00 20.00 12/19/18 20:00 92 21 141/76 (97) 93 Vapotherm 30.00 20.00 12/19/18 20:00 98.6 12/19/18 19:00 95 12/19/18 19:00 97 26 153/70 (97) 95 Vapotherm 30.00 20.00 12/19/18 18:54 Vapotherm 12/19/18 18:42 93 Vapotherm 15.00 30 12/19/18 18:08 99 25 153/71 (98) 93 Vapotherm 30.00 20.00 I & O 12/20/18 07:00 Intake Total 1300 ml Output Total 2775 ml Balance -1475 ml Capillary Refill : Less Than 3 SecondsLess Than 3 Seconds General Appearance: No Apparent Distress Neck: Supple Respiratory: Decreased Breath Sounds Cardiovascular: Regular Rate, Rhythm, Systolic Murmur Gastrointestinal: normal bowel sounds, other (ostomy pink, wound without erythema or drainage) Extremity: Pedal Edema Neurologic/Psychiatric: Alert Skin: Ecchymosis Results Lab Laboratory Tests 12/20/18 01:21: Glucometer 88 12/20/18 04:32: White Blood Count 14.6H, Red Blood Count 3.62L, Hemoglobin 10.3L, Hematocrit 32L , Mean Corpuscular Volume 88, Mean Corpuscular Hemoglobin 29, Mean Corpuscular Hemoglobin Concent 33, Red Cell Distribution Width 16.9H, Platelet Count 236, Mean Platelet Volume 9.9, Sodium Level 144, Potassium Level 3.7, Chloride Level 104, Carbon Dioxide Level 29, Anion Gap 11, Blood Urea Nitrogen 51H, Creatinine 1.23, Estimat Glomerular Filtration Rate 42, BUN/Creatinine Ratio 41, Glucose Level 100, Calcium Level 8.3L, Magnesium Level 1.9 12/20/18 13:47: Glucometer 168H Microbiology 12/13/18 Blood Culture - Final, Complete No growth 12/05/18 Urine Culture - Final, Complete See Report Assessment/Plan Assessment/Plan Assess & Plan/Chief Complaint 1. Toxic Megacolon--S/P surgery with colectomy and ileostomy, surgery advancing diet 2. Acute Exacerbation of COPD--on weaning dose of solumedrol 3. RLL Pneumonia--DC maxipime 4. Fall with left wrist skin tear and left knee contusion--wounds dressed 5. Thrush--DC diflucan and restart nystatin 6. Acute Renal Insufficiency--hydrate and monitor Cr 7. Acute on Chronic Respiratory Failure--down to NC 8. Acute on Chronic Diastolic CHF--on IV lasix and diuresing well 9. Acute on Chronic Anemia--H/H improved S/P transfusion 10. Severe Sepsis--improved 11. Severe Debility--condition still guarded, I discussed hospice with patient' s daughter and grandson but looks better today so will see how she does with PT and OT Clinical Quality Measures Admission Status Admission Dx 1. Acute non STEMI--admit to cardiac in ICU on Brilinta and Heparin with cardiac catheterization by cardiology 2. Hypertension--resume home meds 3. COPD--oxygen, nebulizer treatments 4. UTI--started on Bactrim 5. Chronic Anemia--monitor H/H 6. Left wrist skin tear and abrasions from fall--dressed and will monitor for bleeding with blood thinners DVT/VTE Risk/Contraindication: Risk Factor Score Per Nursin RFS Level Per Nursing on Admit: 3=High MELODY MCGEE DO Dec 20, 2018 17:20
[2018-12-20] MEDS ORDERED: methylPREDNISolone 40 MG/ML (Solu-MEDROL) VIAL IV SCH (21:00)
[2018-12-20] MEDS: ATORVASTATIN 40 MG (LIPITOR) TABLET PO SCH (21:01)
[2018-12-20] MEDS: MIRTAZAPINE 15 MG (REMERON) TAB PO SCH (21:01)
--- NOTE | 2018-12-21 00:24 | NUR ---
PT CRYING AND STATING PAIN /. THIS RN SUGGESTED MORPHINE, LORTAB, OR TYLENOL. PT REFUSES TO TAKE ANY PAIN MEDICATION. PT ASKED WHAT WOULD HELP THE PAIN THAT I CAN DO. PT STATES NOTHING. PT REPOSITIONED AND FAN TURNED ON. PT CONTINUES TO REFUSE PAIN MEDICATION.
[2018-12-21] MEDS: ONDANSETRON 4 MG/2 ML (SDV) Z0FRAN IV PRN ×2 (00:35→13:31)
--- NOTE | 2018-12-21 01:04 | NUR ---
DR. MCGEE PAGED AT THIS TIME REGARDING PAIN CONTROL. AWAITING RETURN CALL.
--- NOTE | 2018-12-21 01:20 | NUR ---
DR. MCGEE CALLED AND INFORMED OF PT C/O PAIN 08/17 BUT REFUSED TO TAKE PAIN MEDICATIONS ORDERED. INFORMED PT VITAL SIGNS ARE STABLE, ABD HAS NOT CHANGED FROM INITIAL ASSESSMENT. WOUND VAC IS DRY AND INTACT. SMALL AMOUNT OF BM IN COLOSTOMY BAG. DR ORDERED FENTANYL 50MCG IV Q4HR PRN PAIN.
[2018-12-21] MEDS: fentaNYL INJECTION 100 MCG/2 ML AMP IVP PRN (01:39)
[2018-12-21] MEDS: RT-ALBUTEROL/IPRATROPIUM 3 ML (DUONEB) VIAL INH SCH ×6 (02:36→23:28)
[2018-12-21 04:00] VITALS: BP 114/56
[2018-12-21] MEDS: MEROPENEM 500 MG/SWFI 10 ML IV PUSH IV SCH ×2 (04:00)
[2018-12-21] MEDS: ACETAMINOPHEN 325 MG TABLET PO SCH ×4 (04:10→23:28)
[2018-12-21] MEDS: NYSTATIN ORAL SUSP 5 ML UDC PO SCH ×4 (04:10→23:28)
[2018-12-21] MEDS: LACTOBACILLUS ACIDOPHILUS (PROBIOTIC) CAPSULE PO SCH ×3 (05:27→17:23)
[2018-12-21] MEDS: RT-ADVAIR HFA 115/21 MCG PER PUFF IH SCH ×3 (06:44→19:41)
[2018-12-21] MEDS: UMECLIDINIUM BROMIDE (INCRUSE ELLIPTA) 7'S IH SCH (06:44)
[2018-12-21 06:53] LABS: BASOPHILS % (AUTO) 0 % (0-10); EOSINOPHILS % (AUTO) 0 % (0-10); HEMATOCRIT 33 % (35-52); HEMOGLOBIN 10.6 G/DL (11.5-16.0); LYMPHOCYTES # (AUTO) 0.3 X 10^3 (1.0-4.0); LYMPHOCYTES % (AUTO) 2 % (12-44); MEAN CORPUSCULAR HEMOGLOBIN 29 PG (25-34); MEAN CORPUSCULAR HGB CONC 32 G/DL (32-36); MEAN CORPUSCULAR VOLUME 89 FL (80-99); MEAN PLATELET VOLUME 10.1 FL (7.4-10.4); MONOCYTES # (AUTO) 0.5 X 10^3 (0.0-1.0); MONOCYTES % (AUTO) 3 % (0-12); NEUTROPHILS % (AUTO) 96 % (42-75); PLATELET COUNT 272 10^3/uL (130-400); RED CELL DISTRIBUTION WIDTH 16.3 % (10.0-14.5); WHITE BLOOD COUNT 17.8 10^3/uL (4.3-11.0)
[2018-12-21 07:09] LABS: CALCIUM 8.3 MG/DL (8.5-10.1); CREATININE SERUM 1.12 MG/DL (0.60-1.30); MAGNESIUM 1.8 MG/DL (1.8-2.4); POTASSIUM 3.4 MMOL/L (3.6-5.0)
[2018-12-21 07:36] LABS: BAND NEUTROPHILS 7 %; BASOPHILS % (MANUAL) 0 %; EOSINOPHILS % (MANUAL) 0 %; LYMPHOCYTES % (MANUAL) 1 %; METAMYELOCYTES % 1 %; MONOCYTES % (MANUAL) 2 %; NEUTROPHILS % (MANUAL) 89 %
[2018-12-21 07:37] LABS: ANISOCYTOSIS SLIGHT
--- NOTE | 2018-12-21 07:53 | Pulmonary Progress Note ---
Subjective Time Seen by a Provider: 09:06 Subjective/Events-last exam PT complains of dysphagia and SOB. Sepsis Event Evaluation Height, Weight, BMI Height: 5'0.00" Weight: 135lbs. 0.0oz. 61.425740jj; 20.6 BMI Method:Stated Exam Exam Vital Signs Date Time Temp Pulse Resp B/P (MAP) Pulse Ox O2 Delivery O2 Flow Rate FiO2 12/21/18 06:45 98 High Flow N/C 3.00 12/21/18 04:00 97.9 91 22 114/56 (75) 100 High Flow N/C 3.00 12/21/18 02:38 100 High Flow N/C 3.00 12/21/18 01:00 99 12/20/18 23:28 97.9 91 26 124/70 (88) 100 Nasal Cannula 3.00 12/20/18 22:33 100 High Flow N/C 5.00 12/20/18 21:34 91 100 12/20/18 20:07 97.9 91 22 123/60 (81) 100 Nasal Cannula 5.00 12/20/18 20:00 High Flow N/C 6.00 12/20/18 19:00 91 12/20/18 16:00 97.4 93 24 137/73 (94) 100 Nasal Cannula 5.00 12/20/18 13:00 91 12/20/18 11:30 97.0 92 18 115/60 (78) 100 Nasal Cannula 5.00 12/20/18 11:00 97.0 92 18 115/60 (78) 100 Nasal Cannula 5.00 12/20/18 10:00 95 25 121/77 (92) 100 High Flow N/C 6.00 12/20/18 09:00 90 18 146/56 (86) 100 High Flow N/C 6.00 12/20/18 08:00 80 12 112/49 (70) 100 High Flow N/C 6.00 I & O 12/21/18 07:00 Intake Total 500 ml Output Total 2260 ml Balance -1760 ml Height & Weight Height: 5'0.00" Weight: 135lbs. 0.0oz. 61.769885kq; 20.6 BMI Method:Stated General Appearance: Anxious, Chronically ill, Mild Distress Neck: Supple Respiratory: Decreased Breath Sounds Cardiovascular: Regular Rate, Rhythm, Systolic Murmur Capillary Refill: Less Than 3 Seconds Gastrointestinal: normal bowel sounds, other (ostomy pink, wound without erythema or drainage) Extremity: Pedal Edema Neurologic/Psychiatric: Alert Skin: Ecchymosis Results Lab Laboratory Tests 12/19/18 17:00 12/20/18 04:32 12/21/18 05:30 Assessment/Plan Assessment/Plan Acute on chronic Respiratory failure -OXygen -SVNS -Monitor s/p acute abdomen secondary to toxic megacolon and ischemia s/p surgery -Dr. Yates is following Severe sepsis with septic shock - improving -Continue Merrem CHF hx EF 30% -Hold Lasix Hypernatremia -Change to D5W COPDAE -SVNS -D/c Solumedrol Atelectasis with pneumonia -Merrem ARF -monitor Anxiety HTN Weakness -Consult PT/OT GREGOR JOSEPH DO Dec 21, 2018 07:53
[2018-12-21 08:00] VITALS: BP 105/54
[2018-12-21] MEDS ORDERED: POTASSIUM CL 10MEQ/50ML IVPB 50 ML IV ONE (08:30)
[2018-12-21] MEDS: POTASSIUM CL 10MEQ/50ML IVPB 50 ML IV SCH ×4 (08:38→14:46)
[2018-12-21] MEDS: DEXMEDETOMIDINE INJECTION 200 MCG in NS (IVPB) 50 ML IV SCH (08:49)
--- NOTE | 2018-12-21 09:32 | Diagnostic Imaging Report ---
Indication: Bowel obstruction and fall. Time of exam 3:53 AM Correlation is made with prior study one day earlier. Right IJ line has tip overlying the SVC. Heart size is stable. Infiltrate or atelectasis in the right base persists. Left lung appears fairly clear. No significant effusion is seen. There is no pneumothorax. Impression: Stable chest since exam one day earlier. Dictated by: Dictated on workstation # [id number]
--- NOTE | 2018-12-21 09:35 | Progress Note-Cardiology ---
Cardiology SOAP Progress Note Subjective: Gen malaise and weakness Not able to eat well: swallowing difficulty, poor appetite No cp or palp or syncope Shortness of breath as before Objective: I&O/Vital Signs 12/20/18 12/20/18 12/20/18 12/21/18 21:34 22:33 23:28 01:00 Temp 97.9 Pulse 91 91 99 Resp 26 B/P (MAP) 124/70 (88) Pulse Ox 100 100 100 O2 Delivery High Flow N/C Nasal Cannula O2 Flow Rate 5.00 3.00 12/21/18 12/21/18 12/21/18 12/21/18 02:38 04:00 06:45 07:00 Temp 97.9 Pulse 91 89 Resp 22 B/P (MAP) 114/56 (75) Pulse Ox 100 100 98 O2 Delivery High Flow N/C High Flow N/C High Flow N/C O2 Flow Rate 3.00 3.00 3.00 12/21/18 08:00 Temp 97.8 Pulse 98 Resp 20 B/P (MAP) 105/54 (71) Pulse Ox 98 O2 Delivery High Flow N/C O2 Flow Rate 3.00 12/21/18 00:00 Intake Total 300 ml Output Total 1700 ml Balance -1400 ml Weight (Pounds): 135 Weight (Ounces): 0.0 Weight (Calculated Kilograms): 61.710173 Constitutional: AAO x 3, other (appears weak and tired, appropriately responsive) Respiratory: chest expansion is symmetric, chest is bilaterally symmetric, rhonchi (scattered), other (prolonged expiratory phase) Cardiovascular: No JVD; tachycardia, S1 and S2, systolic murmur Gastrointestional: other (post op abdomen, ileostomy) Extremities: swelling (generalized edema) Neurologic/Psychiatric: grossly intact, power is 5/5 both on sides Skin: No rash, No ulcerations; other (multiple bruises to arms and legs bilat) Results/Procedures: Labs Laboratory Tests 12/20/18 13:47: Glucometer 168H 12/20/18 17:40: Glucometer 177H 12/21/18 05:30: White Blood Count 17.8H, Red Blood Count 3.70L, Hemoglobin 10.6L, Hematocrit 33L , Mean Corpuscular Volume 89, Mean Corpuscular Hemoglobin 29, Mean Corpuscular Hemoglobin Concent 32, Red Cell Distribution Width 16.3H, Platelet Count 272, Mean Platelet Volume 10.1, Neutrophils (%) (Auto) 96H, Lymphocytes (%) (Auto) 2L , Monocytes (%) (Auto) 3, Eosinophils (%) (Auto) 0, Basophils (%) (Auto) 0, Neutrophils # (Auto) 17.0H, Lymphocytes # (Auto) 0.3L, Monocytes # (Auto) 0.5, Eosinophils # (Auto) 0.0, Basophils # (Auto) 0.0, Neutrophils % (Manual) 89, Lymphocytes % (Manual) 1, Monocytes % (Manual) 2, Eosinophils % (Manual) 0, Basophils % (Manual) 0, Metamyelocytes % 1, Band Neutrophils 7, Anisocytosis SLIGHT, Sodium Level 144, Potassium Level 3.4L, Chloride Level 101, Carbon Dioxide Level 32, Anion Gap 11, Blood Urea Nitrogen 52H, Creatinine 1.12, Estimat Glomerular Filtration Rate 47, BUN/Creatinine Ratio 46, Glucose Level 113H, Calcium Level 8.3L, Magnesium Level 1.8 Microbiology 12/13/18 Blood Culture - Final, Complete No growth 12/05/18 Urine Culture - Final, Complete See Report A/P: Assessment: Surgery for toxic megacolon and ischemic bowel on 12/14/18 - s/p ileostomy Ac on chronic resp failure due to ac exac of COPD and ac giron CHF Marked anemia of undetermined etiology, followed and treated by the [facility], s/ p transfusion Ac NSTEMI, but card cath of 12/06/18 shows only minimal CAD and elevated LVEDP. Cath in 2008, following NSTEMI, had also not shown any significant CAD S/P non-syncopal fall on 12-05-18 resulting in multiple abrasions Chronic kidney disease, stage 3, with some contrast nephropathy post card cath of 12/06/18 TIA on Mar 08 2018 for which she was seen in the ED Severe chronic obstructive pulmonary disease due to prior tobaccoism. Tobaccoism that she quit in 2005. H/O cardiomyopathy with an ejection fraction of 30%, both ischemic and non- ischemic per cardiac catheterization from December 2008. Most recent echocardiogram of May 2017 showed LVEF 55-60%. Mild to mod AoR, TR, and MR. Diastolic dysfunction. Palpitations, probably related to known paroxysmal supraventricular tachycardia/ atrial fibrillation, currently controlled. The patient is considered intolerant to warfarin for several reasons, including episodes of marked epistaxis and hemoptysis, even without warfarin therapy. Also, she is prone to falls, given her generalized frail status. She refuses any oral anticoagulants; agrees only to aspirin for stroke prophylaxis Severe anxiety, currently controlled. Osteoporosis and degenerative joint disease Gastroesophageal reflux. H/O intermittent congestive heart failure due to diastolic and systolic dysfunction of the left ventricle, currently controlled. Hyperlipidemia, well controlled on therapy with simvastatin. H/o left cataract surgery. Mild ascending aortic aneurysm measuring 4.2 cm found incidentally on a CT scan or 07/10/[address] Christine Morales nodules being followed by Dr King Carotid u/s of 04/19/18: less than 40% ROSY, 50-60% LICA stenoses Diagnosis of hypothyroidism in April 2018, managed by Dr Paz, but she has been noncompliant with thyroid replacement therapy Plan: * Complex management due to multiple comorbidities * H/H improved following transfusion * Gen weakness - continue PT * [facility] managing poor oral intake * Monitor lab closely * Prognosis guarded CASSIE ARANA MD FACP FACC CCDS Dec 21, 2018 09:35
[2018-12-21] MEDS: PANTOPRAZOLE 40 MG (PROTONIX) VIAL IV SCH (09:54)
[2018-12-21] MEDS: SENNA W/DOCUSATE (SENOKOT S) TABLET PO SCH ×2 (09:54→20:09)
[2018-12-21] MEDS: ASPIRIN E.C. 81 MG (ECOTRIN) TAB PO SCH (09:54)
[2018-12-21] MEDS: DIGOXIN 62.5 MCG (LANOXIN) TAB PO SCH (09:55)
[2018-12-21] MEDS: ARTIFICAL TEARS 0.4 ML UNIT DOSE (REFRESH PLUS) OU SCH ×3 (09:55→20:09)
[2018-12-21] MEDS: chlordiazePOXIDE 25 MG (LIBRIUM) CAP NON-FORMULARY PO SCH ×2 (09:56→20:15)
[2018-12-21] MEDS: LOSARTAN 25 MG (COZAAR) TAB PO SCH (10:04)
[2018-12-21] MEDS: DILTIAZEM 120 MG (CARDIZEM CD) CAP PO SCH (10:04)
--- NOTE | 2018-12-21 10:48 | Occupational Ther Daily Note ---
OT Current Status-Daily Note Subjective Pt sleeping in bed, woke to name. Pt groggy at first. Nrsg present in room. Pt agrees to therapy. Mental Status/Objective Patient Orientation: Person, Place, Time, Situation Therapy Code Descriptions/Definitions Functional [place] Measure: 0=Not Assessed/NA 4=Minimal Assistance 1=Total Assistance 5=Supervision or Setup 2=Maximal Assistance 6=Modified [place] 3=Moderate Assistance 7=Complete [place] Attachments: Colostomy/Ileostomy, Drains, Kelley Catheter, IV (midline), Oxygen , Telemetry ADL-Treatment Pt required assist x2 for supine to sitting and SPT from bed to recliner with dancing transfer. Pt able to sit EOB with close supervision. Pt took increased time to complete all tasks due to pain, decreased activity tolerance and IV tubing, drains, oxygen, IV. Assist to stand while nrsg cleansed buttocks. After therapy, nrsg, physician and family in room. Call light/phone in reach. All needs met in room. OT Short Term Goals Short Term Goals Additional Short Term Goals: 1-Demonstrate ADL Tasks, 2-Verbalize Understanding , 3-ImproveStrength/[place] 1=Demonstrate adherence to instructed precautions during ADL tasks. 2=Patient will verbalize/demonstrate understanding of assistive devices/ modifications for ADL. 3=Patient will improve strength/tolerance for activity to enable patient to perform ADL's. OT Plastic Mould Maker Goals Plastic Mould Maker Goals Time Frame: Jan 06, 2019 Eating (FIM): 6 Grooming(FIM): 6 Upper Body Dressing(FIM): 5 Lower Body Dressing(FIM): 4 Toileting(FIM): 4 Toilet/Commode Transfer(FIM): 5 Additional Goals: 1-Demonstrate ADL Tasks, 2-Verbalize Understanding, 3- ImproveStrength/[place] 1=Demonstrate adherence to instructed precautions during ADL tasks. 2=Patient will verbalize/demonstrate understanding of assistive devices/ modifications for ADL. 3=Patient will improve strength/tolerance for activity to enable patient to perform ADL's. OT Education/Plan Problem List/Assessment Pt to benefit from skilled OT intervention for ADL training, transfers, strengthening, and safety education to increase level of independence and allow safe discharge. Will increase activity as tolerated. Discharge Recommendations Plan/Recommendations: Continue POC Treatment Plan/Plan of Care Patient would benefit from OT for education, treatment and training to promote independence in ADL's, mobility, safety and/or upper extremity function for ADL' s. Plan of Care: ADL Retraining, Caregiver Training, Functional Mobility, UE Funct Exercise/Act, UE Neuromus Re-Ed/Coord Treatment Duration: Jan 06, 2019 Frequency: 5 times per week Estimated Hrs Per Day: .25 hour per day Agreement: Yes Rehab Potential: Fair Time/GCodes Start Time: 09:45 Stop Time: 10:26 Total Time Billed (hr/min): 41 Billed Treatment Time 1 visit-FA 3 (41 min) JO ANN LUNA Dec 21, 2018 10:48
--- NOTE | 2018-12-21 10:48 | Progress Note-Standard ---
Standard Progress Note Progress Notes/Assess & Plan Date Seen by a Provider: Dec 21, 2018 Time Seen by a Provider: 10:47 Progress/Assessment & Plan Called by the nurse regarding increased abdominal distention, very severe tenderness and hypotension requiring vasopressor support. On examination, she had evidence of diffuse peritonitis and therefore expiratory laparotomy was felt to be appropriate. 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 I have reviewed the operative details which may involve total colectomy and ileostomy. I've also highlighted increased morbidity, potential for mortality and postoperative complications of intra-abdominal abscess, bleeding etc. The patient and her sons, who happened to be at the bedside, appeared to comprehend the reality of the situation and express their consented to proceed with surgery, that would be conducted emergently. 12/14/18:hemodynamically stable. Levophed being weaned. Urine output satisfactory. White cell count decreasing. Hemoglobin stable. Ileostomy healthy. We'll try early enteral nutrition. Vent weaning to commence in 24-48 hours. continues to improve. Vent weaning expected. Ileostomy pink and healthy. extubated this morning. Appears to be comfortable and interactive. Midline wound reasonably healthy. No fascial dehiscence. Wound VAC would be placed today. NG tube would be removed and clear liquids allowed. slow improvement. Skin very fragile. Ileostomy functioning. Diet could be advanced. We will use an air mattress to minimize the risk of bedsores. Continues to improve. Oral intake better. poor appetite and reports insomnia. White cell count 17,000. Hypokalemia, being corrected. Suprapubic abdominal pain slightly better . physical therapy in progress. Final Diagnosis toxic megacolon. DIVYA PEREZ MD Dec 21, 2018 10:48
[2018-12-21 12:00] VITALS: BP 99/52
[2018-12-21] MEDS ORDERED: SIMETHICONE 80 MG (MYLICON) CHEW PO NR (13:30)
--- NOTE | 2018-12-21 14:34 | Physical Therapy Daily Note ---
PT Daily Note-Current Subjective Pt in bed and reports that she has bad abdomen pain. Pt agrees to bed ex with PT. Pain Numeric Pain Scale: 10-Worst Possible Pain Location Body Site: Abdomen Mental Status Patient Orientation: Person, Place, Situation Transfers Therapy Code Descriptions/Definitions Functional [place] Measure: 0=Not Assessed/NA 4=Minimal Assistance 1=Total Assistance 5=Supervision or Setup 2=Maximal Assistance 6=Modified [place] 3=Moderate Assistance 7=Complete [place] Therapy Quality Codes: 6 Independent with activity with or without an assistive device 5 Patient requires set up or clean up by helper. Patient completes activity by themselves 4 Supervision or touching assist (CGA). [place] provide cues , steadying assist 3 The helper provides less than half the effort to complete the activity 2 The helper provides more than half the effort to complete the activity 1 Dependent. The helper does all the effort to complete an activity 7 Patient refused to complete or attempt activity 9 The patient did not perform the activity before the current illness or injury 88 Not attempted due to Medical conditions or safety concerns Weight Bearing Right Lower Extremity: Right Full Weight Bearing Left Lower Extremity: Left Full Weight Bearing Exercises Supine Ex: Ankle pumps, Heel Slides Supine Reps: 10 Assessment Current Status: Poor Progress Pt was only able to tolerate supine LE ex of AP and HS x10 reps due to pain in abdomen. Pt required min A of BLE during ex. Pt required recovery periods during ex. Pt is side lying in bed with pillow behind back and between legs. Pt has all needs met. PT Short Term Goals Short Term Goals Time Frame: Dec 31, 2018 Gait (FIM): 1 Distance (FIM): 1=021-39 ft Gait Distance Comment: 25' Gait Level of Assist: 5 Gait Assistive Device: FWW PT Plan Problem List Problem List: Activity Tolerance, Functional Strength, Safety, Balance, Gait, Transfer, Bed Mobility, ROM Treatment/Plan Treatment Plan: Continue Plan of Care Treatment Plan: Bed Mobility, Education, Functional Activity [place], Functional Strength, Gait, Safety, Therapeutic Exercise, Transfers Treatment Duration: Dec 31, 2018 Frequency: 5 times per week (increase to 6/wk when medically stable) Estimated Hrs Per Day: .25 hour per day Patient and/or Family Agrees t: Yes Time/GCodes Time In: 1315 Time Out: 1328 Total Billed Treatment Time: 13 Total Billed Treatment 1 visit EX 13 min FLY SAAB PT Dec 21, 2018 14:33
--- NOTE | 2018-12-21 14:45 | NUR ---
Asked Dr. Paz about swing bed this a.m. We then talked about continued care plans for Jael. Dr. Paz would like for [facility] to evaluate for admission. Jael currently has a wound vac et will need this for an extended amount of time for wound healing. She also continues to need Physical et Occupational therapies. [facility] has come and spoken to the patient et have taken clinical information to determine acceptance/denial. Anticipate that [facility] will be able to accept the patient with admission to them tomorrow 12/22/18.
[2018-12-21] MEDS: MEROPENEM 500 MG in WATER (STERILE) FOR INJECTION 10 ML IV SCH ×2 (15:50→22:20)
[2018-12-21 16:41] VITALS: BP 106/62
[2018-12-21] MEDS: FAMOTIDINE 20 MG (PEPCID) TABLET PO SCH (17:23)
[2018-12-21 18:00] VITALS: BP 98/57
--- NOTE | 2018-12-21 18:02 | Progress Note (SOAP) ---
Subjective Date Seen by a Provider: Dec 21, 2018 Time Seen by a Provider: 12:45 Subjective/Events-last exam Fwup Acute on Chronic Respiratory Failure, Severe Sepsis, toxic megacolon--S/P colectomy, pneumonia, COPD with acute exacerbation, UTI, fall with left arm skin tear and knee abrasions, anemia, CHF--acute on chronic. Had abdominal pain last night and refused morphine. Was given fentanyl which helped pain but caused hallucinations. However, she feels the fentanyl is better than the morphine as far as side effects go. Objective Exam Vital Signs Date Time Temp Pulse Resp B/P (MAP) Pulse Ox O2 Delivery O2 Flow Rate FiO2 12/21/18 16:41 96.4 79 20 106/62 (77) 100 High Flow N/C 3.00 12/21/18 15:09 High Flow N/C 3.00 12/21/18 13:00 80 12/21/18 12:00 97.6 83 18 99/52 (68) 100 High Flow N/C 3.00 12/21/18 08:00 97.8 98 20 105/54 (71) 98 High Flow N/C 3.00 12/21/18 08:00 High Flow N/C 6.00 12/21/18 07:00 89 12/21/18 06:45 98 High Flow N/C 3.00 12/21/18 04:00 97.9 91 22 114/56 (75) 100 High Flow N/C 3.00 12/21/18 02:38 100 High Flow N/C 3.00 12/21/18 01:00 99 12/20/18 23:28 97.9 91 26 124/70 (88) 100 Nasal Cannula 3.00 12/20/18 22:33 100 High Flow N/C 5.00 12/20/18 21:34 91 100 12/20/18 20:07 97.9 91 22 123/60 (81) 100 Nasal Cannula 5.00 12/20/18 20:00 High Flow N/C 6.00 12/20/18 19:00 91 I & O 12/21/18 07:00 Intake Total 500 ml Output Total 2260 ml Balance -1760 ml Capillary Refill : Less Than 3 SecondsLess Than 3 Seconds General Appearance: Moderate Distress Neck: Supple Respiratory: Decreased Breath Sounds, Respiratory Distress (mild) Cardiovascular: Regular Rate, Rhythm, Systolic Murmur Gastrointestinal: normal bowel sounds, non tender, soft Extremity: Pedal Edema Neurologic/Psychiatric: Alert, Oriented x3 Skin: Ecchymosis Results Lab Laboratory Tests 12/21/18 05:30: White Blood Count 17.8H, Red Blood Count 3.70L, Hemoglobin 10.6L, Hematocrit 33L , Mean Corpuscular Volume 89, Mean Corpuscular Hemoglobin 29, Mean Corpuscular Hemoglobin Concent 32, Red Cell Distribution Width 16.3H, Platelet Count 272, Mean Platelet Volume 10.1, Neutrophils (%) (Auto) 96H, Lymphocytes (%) (Auto) 2L , Monocytes (%) (Auto) 3, Eosinophils (%) (Auto) 0, Basophils (%) (Auto) 0, Neutrophils # (Auto) 17.0H, Lymphocytes # (Auto) 0.3L, Monocytes # (Auto) 0.5, Eosinophils # (Auto) 0.0, Basophils # (Auto) 0.0, Neutrophils % (Manual) 89, Lymphocytes % (Manual) 1, Monocytes % (Manual) 2, Eosinophils % (Manual) 0, Basophils % (Manual) 0, Metamyelocytes % 1, Band Neutrophils 7, Anisocytosis SLIGHT, Sodium Level 144, Potassium Level 3.4L, Chloride Level 101, Carbon Dioxide Level 32, Anion Gap 11, Blood Urea Nitrogen 52H, Creatinine 1.12, Estimat Glomerular Filtration Rate 47, BUN/Creatinine Ratio 46, Glucose Level 113H, Calcium Level 8.3L, Magnesium Level 1.8 Microbiology 12/13/18 Blood Culture - Final, Complete No growth 12/05/18 Urine Culture - Final, Complete See Report Assessment/Plan Assessment/Plan Assess & Plan/Chief Complaint 1. Toxic Megacolon--S/P surgery with colectomy and ileostomy, long discussion with family and patient about LTAC placement due to severe debility and new ostomy as well as ongoing need for wound vac 2. Acute Exacerbation of COPD--on weaning dose of solumedrol 3. RLL Pneumonia--recheck CXR 4. Fall with left wrist skin tear and left knee contusion--wounds dressed 5. Thrush--on nystatin 6. Acute Renal Insufficiency--hydrate and monitor Cr 7. Acute on Chronic Respiratory Failure--down to NC 8. Acute on Chronic Diastolic CHF--on IV lasix and diuresing well 9. Acute on Chronic Anemia--H/H improved S/P transfusion 10. Severe Sepsis--WBC count back up so will restart maxipime 11. Severe Debility--condition still guarded Clinical Quality Measures Admission Status Admission Dx 1. Acute non STEMI--admit to cardiac in ICU on Brilinta and Heparin with cardiac catheterization by cardiology 2. Hypertension--resume home meds 3. COPD--oxygen, nebulizer treatments 4. UTI--started on Bactrim 5. Chronic Anemia--monitor H/H 6. Left wrist skin tear and abrasions from fall--dressed and will monitor for bleeding with blood thinners DVT/VTE Risk/Contraindication: Risk Factor Score Per Nursin RFS Level Per Nursing on Admit: 3=High MELODY MCGEE DO Dec 21, 2018 18:02
[2018-12-21] MEDS: SIMETHICONE 80 MG (MYLICON) CHEW PO SCH ×2 (18:46→20:09)
[2018-12-21] MEDS: ENOXAPARIN 30 MG/0.3 ML (LOVENOX) SYR SC SCH (18:47)
[2018-12-21 20:00] VITALS: BP 98/57
[2018-12-21] MEDS: DIAZEPAM 5 MG (VALIUM) TABLET PO SCH (20:09)
[2018-12-21] MEDS: MIRTAZAPINE 15 MG (REMERON) TAB PO SCH (20:09)
[2018-12-21] MEDS: ATORVASTATIN 40 MG (LIPITOR) TABLET PO SCH (20:09)
[2018-12-22] VITALS (7 sets, daily range): BP systolic 90–118; BP diastolic 47–78
[2018-12-22] MEDS ORDERED: D5 NS W/KCL 20 MEQ/L 1,000 ML IV ONE (00:01)
[2018-12-22] MEDS ORDERED: POTASSIUM CHLORIDE INJ 20 MEQ in D5 NS 1000 ML IV SOLUTION 1,000 ML IV SCH ×4 (00:15)
[2018-12-22] MEDS: D5 NS W/KCL 20 MEQ/L 1,000 ML IV SCH ×3 (00:33→18:29)
[2018-12-22] MEDS: RT-ALBUTEROL/IPRATROPIUM 3 ML (DUONEB) VIAL INH SCH ×6 (03:27→21:27)
[2018-12-22] MEDS: ACETAMINOPHEN 325 MG TABLET PO SCH ×4 (04:25→23:06)
[2018-12-22] MEDS: LACTOBACILLUS ACIDOPHILUS (PROBIOTIC) CAPSULE PO SCH ×3 (06:03→16:48)
[2018-12-22] MEDS: NYSTATIN ORAL SUSP 5 ML UDC PO SCH ×4 (06:03→23:06)
[2018-12-22] MEDS: MEROPENEM 500 MG in WATER (STERILE) FOR INJECTION 10 ML IV SCH ×2 (06:03→18:23)
[2018-12-22 06:29] LABS: BASOPHILS % (AUTO) 0 % (0-10); EOSINOPHILS % (AUTO) 0 % (0-10); HEMATOCRIT 34 % (35-52); HEMOGLOBIN 10.8 G/DL (11.5-16.0); LYMPHOCYTES # (AUTO) 0.4 X 10^3 (1.0-4.0); LYMPHOCYTES % (AUTO) 1 % (12-44); MEAN CORPUSCULAR HEMOGLOBIN 29 PG (25-34); MEAN CORPUSCULAR HGB CONC 32 G/DL (32-36); MEAN CORPUSCULAR VOLUME 90 FL (80-99); MEAN PLATELET VOLUME 10.2 FL (7.4-10.4); MONOCYTES # (AUTO) 0.3 X 10^3 (0.0-1.0); MONOCYTES % (AUTO) 1 % (0-12); NEUTROPHILS # (AUTO) 27.3 X 10^3 (1.8-7.8); NEUTROPHILS % (AUTO) 97 % (42-75); PLATELET COUNT 236 10^3/uL (130-400); RED CELL DISTRIBUTION WIDTH 16.4 % (10.0-14.5)
[2018-12-22 06:53] LABS: CALCIUM 8.1 MG/DL (8.5-10.1); CREATININE SERUM 1.67 MG/DL (0.60-1.30); MAGNESIUM 1.8 MG/DL (1.8-2.4); POTASSIUM 4.5 MMOL/L (3.6-5.0)
[2018-12-22] MEDS: RT-ADVAIR HFA 115/21 MCG PER PUFF IH SCH ×2 (07:27→21:28)
[2018-12-22] MEDS: UMECLIDINIUM BROMIDE (INCRUSE ELLIPTA) 7'S IH SCH (07:29)
--- NOTE | 2018-12-22 09:31 | Pulmonary Progress Note ---
Subjective Time Seen by a Provider: 09:25 Subjective/Events-last exam pt appears very weak. Sepsis Event Evaluation Height, Weight, BMI Height: 5'0.00" Weight: 125lbs. 0.0oz. 56.547726ho; 20.6 BMI Method:Stated Exam Exam Vital Signs Date Time Temp Pulse Resp B/P (MAP) Pulse Ox O2 Delivery O2 Flow Rate FiO2 12/22/18 07:29 High Flow N/C 3.00 12/22/18 07:27 98 High Flow N/C 3.00 12/22/18 07:19 98 High Flow N/C 3.00 12/22/18 04:38 97.6 88 14 115/54 (74) 100 High Flow N/C 3.00 12/22/18 03:27 97 High Flow N/C 3.00 12/22/18 01:00 85 12/22/18 00:00 98.2 84 14 91/47 (62) 99 High Flow N/C 3.00 12/21/18 23:28 94 High Flow N/C 3.00 12/21/18 20:00 96.9 81 19 98/57 (71) 100 High Flow N/C 3.00 12/21/18 20:00 High Flow N/C 6.00 12/21/18 19:45 96 High Flow N/C 3.00 12/21/18 19:42 95 High Flow N/C 3.00 12/21/18 19:00 82 12/21/18 18:00 96.9 81 19 98/57 (71) 100 High Flow N/C 3.00 12/21/18 16:41 96.4 79 20 106/62 (77) 100 High Flow N/C 3.00 12/21/18 15:09 High Flow N/C 3.00 12/21/18 13:00 80 12/21/18 12:00 97.6 83 18 99/52 (68) 100 High Flow N/C 3.00 I & O 12/22/18 06:59 Intake Total 325 ml Output Total 360 ml Balance -35 ml Height & Weight Height: 5'0.00" Weight: 125lbs. 0.0oz. 56.228223ys; 20.6 BMI Method:Stated General Appearance: Anxious, Moderate Distress HEENT: Normal ENT Inspection Neck: Supple Respiratory: Decreased Breath Sounds, Respiratory Distress (mild) Cardiovascular: Regular Rate, Rhythm, Systolic Murmur Capillary Refill: Less Than 3 Seconds Gastrointestinal: normal bowel sounds, non tender, soft Extremity: Pedal Edema Neurologic/Psychiatric: Alert, Oriented x3 Skin: Normal Color, Warm/Dry, Ecchymosis Results Lab Laboratory Tests 12/21/18 05:30 12/22/18 06:20 Assessment/Plan Assessment/Plan Acute on chronic Respiratory failure -OXygen -SVNS -Monitor s/p acute abdomen secondary to toxic megacolon and ischemia s/p surgery -Dr. Yates is following Severe sepsis with septic shock - improving -Continue Merrem Worsening Leukocytosis -repan culture -CHeck MRSA swab ARF -Lasix stopped yesterday -Hold ARB -IVF started CHF hx EF 30% -Hold Lasix COPDAE -SVNS Atelectasis with pneumonia -Merrem ARF -monitor Anxiety HTN Weakness -Consult PT/OT GREGOR JOSEPH DO Dec 22, 2018 09:31
--- NOTE | 2018-12-22 09:31 | Progress Note-Cardiology ---
Cardiology SOAP Progress Note Subjective: Sitting up in bed. Lethargic. Opens eyes to verbal stimuli. Nods head no when asked if she if having pain. Unable to obtain any other information. Objective: I&O/Vital Signs 12/22/18 12/22/18 12/22/18 12/22/18 03:27 04:38 07:19 07:27 Temp 97.6 Pulse 88 Resp 14 B/P (MAP) 115/54 (74) Pulse Ox 97 100 98 98 O2 Delivery High Flow N/C High Flow N/C High Flow N/C High Flow N/C O2 Flow Rate 3.00 3.00 3.00 3.00 12/22/18 12/22/18 12/22/18 12/22/18 07:29 07:39 08:00 10:42 Temp 97.4 Pulse 87 87 Resp 19 B/P (MAP) 102/58 (73) Pulse Ox 100 95 O2 Delivery High Flow N/C High Flow N/C High Flow N/C O2 Flow Rate 3.00 3.00 3.00 12/22/18 12/22/18 12:00 14:10 Temp 98.2 Pulse 89 Resp 19 B/P (MAP) 96/50 (65) Pulse Ox 98 97 O2 Delivery High Flow N/C High Flow N/C O2 Flow Rate 3.00 3.00 12/22/18 00:00 Intake Total 325 ml Output Total 250 ml Balance 75 ml Weight (Pounds): 125 Weight (Ounces): 0.0 Weight (Calculated Kilograms): 56.207061 Constitutional: AAO x 3, other (appears weak and tired, appropriately responsive) Respiratory: chest expansion is symmetric, chest is bilaterally symmetric, rhonchi (scattered), other (prolonged expiratory phase) Cardiovascular: No JVD; tachycardia, S1 and S2, systolic murmur Gastrointestional: other (post op abdomen, ileostomy; wound vac in place) Extremities: swelling (generalized edema) Neurologic/Psychiatric: grossly intact, power is 5/5 both on sides Skin: No rash, No ulcerations; other (multiple bruises to arms and legs bilat) Results/Procedures: Labs Laboratory Tests 12/22/18 06:20: White Blood Count 28.0H, Red Blood Count 3.78L, Hemoglobin 10.8L, Hematocrit 34L , Mean Corpuscular Volume 90, Mean Corpuscular Hemoglobin 29, Mean Corpuscular Hemoglobin Concent 32, Red Cell Distribution Width 16.4H, Platelet Count 236, Mean Platelet Volume 10.2, Neutrophils (%) (Auto) 97H, Lymphocytes (%) (Auto) 1L , Monocytes (%) (Auto) 1, Eosinophils (%) (Auto) 0, Basophils (%) (Auto) 0, Neutrophils # (Auto) 27.3H, Lymphocytes # (Auto) 0.4L, Monocytes # (Auto) 0.3, Eosinophils # (Auto) 0.0, Basophils # (Auto) 0.0, Sodium Level 139, Potassium Level 4.5, Chloride Level 101, Carbon Dioxide Level 31, Anion Gap 7, Blood Urea Nitrogen 61H, Creatinine 1.67H, Estimat Glomerular Filtration Rate 30, BUN/ Creatinine Ratio 37, Glucose Level 140H, Calcium Level 8.1L, Magnesium Level 1.8 12/22/18 10:05: Lactic Acid Level 0.71, Digoxin Level 0.96 12/22/18 13:25: Lactic Acid Level 0.87 12/22/18 14:05: Microbiology 12/13/18 Blood Culture - Final, Complete No growth 12/05/18 Urine Culture - Final, Complete See Report A/P: Assessment: 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 Cath in 2008, following NSTEMI, had also not shown any significant CAD Worsening leukocytosis S/P non-syncopal fall on 12-05-18 resulting in multiple abrasions Chronic kidney disease, stage 3, with some contrast nephropathy post card cath of 12/06/18 TIA on Mar 08 2018 for which she was seen in the ED Severe chronic obstructive pulmonary disease due to prior tobaccoism. Tobaccoism that she quit in 2005. H/O cardiomyopathy with an ejection fraction of 30%, both ischemic and non- ischemic per cardiac catheterization from December 2008. Most recent echocardiogram of May 2017 showed LVEF 55-60%. Mild to mod AoR, TR, and MR. Diastolic dysfunction. Palpitations, probably related to known paroxysmal supraventricular tachycardia/ atrial fibrillation, currently controlled. The patient is considered intolerant to warfarin for several reasons, including episodes of marked epistaxis and hemoptysis, even without warfarin therapy. Also, she is prone to falls, given her generalized frail status. She refuses any oral anticoagulants; agrees only to aspirin for stroke prophylaxis Severe anxiety, currently controlled. Osteoporosis and degenerative joint disease Gastroesophageal reflux. H/O intermittent congestive heart failure due to diastolic and systolic dysfunction of the left ventricle, currently controlled. Hyperlipidemia, well controlled on therapy with simvastatin. H/o left cataract surgery. Mild ascending aortic aneurysm measuring 4.2 cm found incidentally on a CT scan or 07/10/[address] Christine Morales nodules being followed by Dr King Carotid u/s of 04/19/18: less than 40% ROSY, 50-60% LICA stenoses Diagnosis of hypothyroidism in April 2018, managed by Dr Paz, but she has been noncompliant with thyroid replacement therapy Plan: * Complex management due to multiple comorbidities * H/H improved following transfusion * Gen weakness - continue PT * Surgical and Medical [facility] managing poor oral intake * Monitor lab closely * She is being evaluated for admission to [facility] in [place], [place] * Worsening leukocytosis - management per medical/surgical services * Prognosis guarded Physician Assessment Physician Assessment Minimally responsive. No cp or palp or syncope. Gen weakness Lungs: fair to good bilat air entry, diminished at the bases Cor: reg Ext: mod bilat limb swelling A&R * As documented in our note above that I updated (italics) and as noted below * Monitor labs * Prognosis guarded/poor KEE DAMON Dec 22, 2018 09:31 CASSIE ARANA MD FACP [facility] Dec 22, 2018 14:25
--- NOTE | 2018-12-22 10:29 | NUR ---
RENAL DOSED MEROPENEM TO 500MG IV Q 12 HOURS DUE TO CRCL LESS THAN 20 AND SCT 1.67 TODAY
[2018-12-22] MEDS: PANTOPRAZOLE 40 MG (PROTONIX) VIAL IV SCH (10:40)
[2018-12-22] MEDS: DIGOXIN 62.5 MCG (LANOXIN) TAB PO SCH (10:40)
[2018-12-22] MEDS: SENNA W/DOCUSATE (SENOKOT S) TABLET PO SCH ×2 (10:43→20:52)
[2018-12-22] MEDS: HYDROcodone/APAP 5 MG/325 MG (LORTAB) TAB PO PRN (10:43)
[2018-12-22] MEDS: ARTIFICAL TEARS 0.4 ML UNIT DOSE (REFRESH PLUS) OU SCH ×3 (10:44→20:53)
[2018-12-22] MEDS: DIAZEPAM 5 MG (VALIUM) TABLET PO SCH (10:44)
[2018-12-22] MEDS: ASPIRIN E.C. 81 MG (ECOTRIN) TAB PO SCH (10:44)
[2018-12-22] MEDS: DILTIAZEM 120 MG (CARDIZEM CD) CAP PO SCH (11:00)
--- NOTE | 2018-12-22 11:23 | Physical Therapy Progress Note ---
Therapy Progress Note 10:59 PT assisted nursing with placing pressure pad under pt and positioning in bed. Pt refused to perform any LE ex today. Pt and family report pt will be dismissed to LTAC. JANI WASSERMAN PT Dec 22, 2018 11:23
--- NOTE | 2018-12-22 11:52 | NUR ---
CM/SS. Patient has been accepted for admission to [facility]. Patient's daughter Adela Galloway and another family member at bedside, all in agreement for this next step in her care plan. Updated [facility] with current clinical information and he is completing the assessment for her admission. Left message for Dr. Paz on her cell phone and requested acknowledgment of receipt. Chinedu provided number to call report: [phone] King to update and he verbalized approval for her to transfer today. Patient will transport via EMS. Assist as appropriate. Unit RN updated. Addendum: 12/22/18 at 1202 by KEITH RENEE Patient has 4 children, Clifford in [place], Dominic and Andre locally. Her daughter Adela Galloway is here from [place]: Adela Galloway [address] [place] [address] PH: [phone]
[2018-12-22] MEDS: ONDANSETRON 4 MG/2 ML (SDV) Z0FRAN IV PRN (12:30)
[2018-12-22] MEDS ORDERED: FUROSEMIDE 40 MG/4 ML INJ (LASIX) IVP NR (13:00)
--- NOTE | 2018-12-22 13:18 | NUR ---
CM/SS. Dr. Paz rounded on patient and indicates she is too acute for transfer to LTAC today. [place]/Chinedu updated. Care Management team will continue to follow patient to assist with any next steps as appropriate.
--- NOTE | 2018-12-22 14:18 | Diagnostic Imaging Report ---
PROCEDURE: CT abdomen and pelvis without contrast. TECHNIQUE: Multiple contiguous axial images were obtained through the abdomen and pelvis without the use of intravenous contrast. INDICATION: Status post colectomy. The patient has elevated white blood cell count. Correlation is made with prior exam from 12/13/2018. There is a moderate sized right pleural effusion with some associated atelectasis or infiltrate in the right lower lobe. No discrete liver mass is seen. The gallbladder is surgically absent. No biliary ductal dilatation is seen. The pancreas is atrophic. Spleen contains a small low-density, stable when compared with prior exam. The adrenal glands are stable. Left adrenal nodule appears stable. Kidneys contain cortical low densities which appear stable. No calculi or hydronephrosis is seen. Aorta is calcified but nonaneurysmal. Postsurgical changes of total colectomy are identified. Patient has an ostomy in the right para midline abdomen. There does appear to be diffuse fluid-filled distention to the stomach. In addition, there is diffuse fluid-filled distention of small bowel loops throughout the abdomen. No focal intra-abdominal transition is seen. There does appear to be a very small caliber bowel loop at the level of the ostomy in the anterior abdominal wall. The bowel loop could be pinched at this location producing obstruction. No bowel wall thickening is seen. No pneumatosis is identified. There is some free fluid in the perihepatic region. There is also a small amount of free fluid in the pelvis. No well-formed fluid collection is identified at this time. Patient appears to have a rectosigmoid stump. The bladder is decompressed by a Kelley catheter. Uterus is unremarkable. Generalized subcutaneous edema is identified suggestive of anasarca. Impression: 1. Moderate right pleural effusion with associated right basilar infiltrate or atelectasis. 2. Status post total colectomy. Patient does have a right para midline ileostomy. There is diffuse gastric as well as small bowel fluid-filled distention to the level of the ostomy where there is a small caliber bowel loop present. The possibility of focal obstruction at the ostomy site is suspected. 3. There is some free fluid in the abdomen and pelvis but no well-formed fluid collection or abscess is identified. Results were discussed with Dr. Yates prior to this dictation. Dictated by: Dictated on workstation # [id number]
[2018-12-22 14:22] LABS: BILIRUBIN,URINE NEGATIVE (NEGATIVE); CLARITY,URINE CLEAR; COLOR,URINE YELLOW; GLUCOSE, URINE (UA) NEGATIVE (NEGATIVE); KETONES,URINE 1+ (NEGATIVE); LEUKOCYTE ESTERASE ,URINE 1+ (NEGATIVE); NITRITE,URINE NEGATIVE (NEGATIVE); PH,URINE 5 (5-9); PROTEIN,URINE 2+ (NEGATIVE); UROBILINOGEN,URINE NORMAL (NORMAL)
[2018-12-22 14:45] LABS: AMORPHOUS SEDIMENT,UR FEW AMOR URATES /LPF; BACTERIA,URINE MODERATE /HPF; RENAL EPITHELIAL CELLS,URINE RARE /HPF; SQUAMOUS EPITHELIAL CELL,UR RARE /HPF
[2018-12-22] MEDS ORDERED: TPN IV SCH (14:45)
--- NOTE | 2018-12-22 14:53 | NUR ---
NG # [id number] INSERTED PER LEFT NARE EPIFANIO. WELL. 1400 CC DARK GREEN SUBSTANCE RETURNED. PT. VOMITED MOD. AMT. GREEN LIQ WHILE PUTTING NG TUBE IN.
--- NOTE | 2018-12-22 15:03 | Occupational Ther Daily Note ---
OT Current Status-Daily Note Subjective Pt had just gotten back from CT scan. Pt states she is nauseous and exhausted. Mental Status/Objective Patient Orientation: Person, Place, Time, Situation Therapy Code Descriptions/Definitions Functional [place] Measure: 0=Not Assessed/NA 4=Minimal Assistance 1=Total Assistance 5=Supervision or Setup 2=Maximal Assistance 6=Modified [place] 3=Moderate Assistance 7=Complete [place] ADL-Treatment Declines to do exercises or grooming, exercises. Pt requires assist x2 for bed mobility. Pt able to grasp and hold onto water pitcher and bring to mouth. Pt kept eyes closed throughout. Nrsg present in room. Call light/phone in reach. All needs met in room. OT Short Term Goals Short Term Goals Additional Short Term Goals: 1-Demonstrate ADL Tasks, 2-Verbalize Understanding , 3-ImproveStrength/[place] 1=Demonstrate adherence to instructed precautions during ADL tasks. 2=Patient will verbalize/demonstrate understanding of assistive devices/ modifications for ADL. 3=Patient will improve strength/tolerance for activity to enable patient to perform ADL's. OT Mint Machine Operator Goals Senior Living Goals Time Frame: Jan 06, 2019 Eating (FIM): 6 Grooming(FIM): 6 Upper Body Dressing(FIM): 5 Lower Body Dressing(FIM): 4 Toileting(FIM): 4 Toilet/Commode Transfer(FIM): 5 Additional Goals: 1-Demonstrate ADL Tasks, 2-Verbalize Understanding, 3- ImproveStrength/[place] 1=Demonstrate adherence to instructed precautions during ADL tasks. 2=Patient will verbalize/demonstrate understanding of assistive devices/ modifications for ADL. 3=Patient will improve strength/tolerance for activity to enable patient to perform ADL's. OT Education/Plan Problem List/Assessment Pt to benefit from skilled OT intervention for ADL training, transfers, strengthening, and safety education to increase level of independence and allow safe discharge. Will increase activity as tolerated. Discharge Recommendations Plan/Recommendations: Continue POC Treatment Plan/Plan of Care Patient would benefit from OT for education, treatment and training to promote independence in ADL's, mobility, safety and/or upper extremity function for ADL' s. Plan of Care: ADL Retraining, Caregiver Training, Functional Mobility, UE Funct Exercise/Act, UE Neuromus Re-Ed/Coord Treatment Duration: Jan 06, 2019 Frequency: 5 times per week Estimated Hrs Per Day: .25 hour per day Agreement: Yes Rehab Potential: Fair Time/GCodes Start Time: 14:00 Stop Time: 14:10 Total Time Billed (hr/min): 10 Billed Treatment Time 1 visit-FA 1 (10 min) JO ANN LUNA Dec 22, 2018 15:03
[2018-12-22] MEDS: SIMETHICONE 80 MG (MYLICON) CHEW PO SCH ×4 (15:12→20:52)
[2018-12-22] MEDS: chlordiazePOXIDE 25 MG (LIBRIUM) CAP NON-FORMULARY PO SCH ×2 (15:12→20:52)
[2018-12-22] MEDS: LOSARTAN 25 MG (COZAAR) TAB PO SCH (15:17)
--- NOTE | 2018-12-22 15:39 | Speech Therapy Progress Note ---
Therapy Progress Note ST attempted 2x to see patient for dysphagia therapy. Patient is unable to participate. GRAEME MENENDEZ Dec 22, 2018 15:39
[2018-12-22 16:09] LABS: HEMOGLOBIN 10.1 G/DL (11.5-16.0); RED CELL DISTRIBUTION WIDTH 16.3 % (10.0-14.5)
[2018-12-22 16:25] LABS: PROTHROMBIN TIME PATIENT 13.2 SEC (12.2-14.7)
[2018-12-22 16:31] LABS: ALBUMIN 1.9 GM/DL (3.2-4.5); BILIRUBIN,TOTAL 0.3 MG/DL (0.1-1.0); CALCIUM 7.9 MG/DL (8.5-10.1); CREATININE SERUM 1.81 MG/DL (0.60-1.30); MAGNESIUM 1.7 MG/DL (1.8-2.4); PHOSPHORUS 5.9 MG/DL (2.3-4.7); TOTAL PROTEIN 4.1 GM/DL (6.4-8.2)
[2018-12-22] MEDS: FAMOTIDINE 20 MG (PEPCID) TABLET PO SCH (16:48)
[2018-12-22] MEDS: ENOXAPARIN 30 MG/0.3 ML (LOVENOX) SYR SC SCH (18:23)
--- NOTE | 2018-12-22 18:27 | Progress Note (SOAP) ---
Subjective Date Seen by a Provider: Dec 22, 2018 Time Seen by a Provider: 12:35 Subjective/Events-last exam Fwup Acute on Chronic Respiratory Failure, Severe Sepsis, toxic megacolon--S/P colectomy, pneumonia, COPD with acute exacerbation, UTI, fall with left arm skin tear and knee abrasions, anemia, CHF--acute on chronic. Drowsy today and WBC count has went back up and abdomen more distended. Focused Exam Lactate Level 12/22/18 10:05: Lactic Acid Level 0.71 12/22/18 13:25: Lactic Acid Level 0.87 Objective Exam Vital Signs Date Time Temp Pulse Resp B/P (MAP) Pulse Ox O2 Delivery O2 Flow Rate FiO2 12/22/18 16:17 96.5 83 14 118/78 (91) 100 12/22/18 14:10 97 High Flow N/C 3.00 12/22/18 13:50 91 12/22/18 12:00 98.2 89 19 96/50 (65) 98 High Flow N/C 3.00 12/22/18 10:42 95 High Flow N/C 3.00 12/22/18 08:00 97.4 87 19 102/58 (73) 100 High Flow N/C 3.00 12/22/18 07:39 87 12/22/18 07:29 High Flow N/C 3.00 12/22/18 07:27 98 High Flow N/C 3.00 12/22/18 07:19 98 High Flow N/C 3.00 12/22/18 04:38 97.6 88 14 115/54 (74) 100 High Flow N/C 3.00 12/22/18 03:27 97 High Flow N/C 3.00 12/22/18 01:00 85 12/22/18 00:00 98.2 84 14 91/47 (62) 99 High Flow N/C 3.00 12/21/18 23:28 94 High Flow N/C 3.00 12/21/18 20:00 96.9 81 19 98/57 (71) 100 High Flow N/C 3.00 12/21/18 20:00 High Flow N/C 6.00 12/21/18 19:45 96 High Flow N/C 3.00 12/21/18 19:42 95 High Flow N/C 3.00 12/21/18 19:00 82 I & O 12/22/18 07:00 Intake Total 325 ml Output Total 360 ml Balance -35 ml Capillary Refill : Less Than 3 SecondsLess Than 3 Seconds General Appearance: Other (drowsy) Respiratory: Lungs Clear, Decreased Breath Sounds Cardiovascular: Regular Rate, Rhythm Gastrointestinal: abnormal bowel sounds, distended, tenderness (generalized) Extremity: Pedal Edema Neurologic/Psychiatric: Other (drowsy) Results Lab Laboratory Tests 12/22/18 06:20: White Blood Count 28.0H, Red Blood Count 3.78L, Hemoglobin 10.8L, Hematocrit 34L , Mean Corpuscular Volume 90, Mean Corpuscular Hemoglobin 29, Mean Corpuscular Hemoglobin Concent 32, Red Cell Distribution Width 16.4H, Platelet Count 236, Mean Platelet Volume 10.2, Neutrophils (%) (Auto) 97H, Lymphocytes (%) (Auto) 1L , Monocytes (%) (Auto) 1, Eosinophils (%) (Auto) 0, Basophils (%) (Auto) 0, Neutrophils # (Auto) 27.3H, Lymphocytes # (Auto) 0.4L, Monocytes # (Auto) 0.3, Eosinophils # (Auto) 0.0, Basophils # (Auto) 0.0, Sodium Level 139, Potassium Level 4.5, Chloride Level 101, Carbon Dioxide Level 31, Anion Gap 7, Blood Urea Nitrogen 61H, Creatinine 1.67H, Estimat Glomerular Filtration Rate 30, BUN/ Creatinine Ratio 37, Glucose Level 140H, Calcium Level 8.1L, Magnesium Level 1.8 12/22/18 10:05: Lactic Acid Level 0.71, Digoxin Level 0.96 12/22/18 13:25: Lactic Acid Level 0.87 12/22/18 14:05: Urine Color YELLOW, Urine Clarity CLEAR, Urine pH 5, Urine Specific [place] 1.020, Urine Protein 2+H, Urine Glucose (UA) NEGATIVE, Urine Ketones 1+H, Urine Nitrite NEGATIVE, Urine Bilirubin NEGATIVE, Urine Urobilinogen NORMAL, Urine Leukocyte Esterase 1+H, Urine RBC (Auto) 3+H, Urine RBC 10-25H, Urine WBC 10-25H , Urine Squamous Epithelial Cells RARE, Urine Renal Epithelial Cells RARE, Urine Crystals PRESENTH, Urine Amorphous Sediment FEW LORNE URATESH, Urine Bacteria MODERATEH, Urine Casts PRESENT, Urine Hyaline Casts 2-5H, Urine Granular Casts 2-5H, Urine Mucus NEGATIVE, Urine Culture Indicated YES 12/22/18 15:55: White Blood Count 27.0H, Red Blood Count 3.59L, Hemoglobin 10.1L, Hematocrit 33L , Mean Corpuscular Volume 91, Mean Corpuscular Hemoglobin 28, Mean Corpuscular Hemoglobin Concent 31L, Red Cell Distribution Width 16.3H, Platelet Count 213, Mean Platelet Volume 10.0, Prothrombin Time 13.2, INR Comment 1.0, Sodium Level 139, Potassium Level 5.0, Chloride Level 105, Carbon Dioxide Level 31, Anion Gap 3L, Blood Urea Nitrogen 61H, Creatinine 1.81H, Estimat Glomerular Filtration Rate 27, BUN/Creatinine Ratio 34, Glucose Level 186H, Calcium Level 7.9L, Corrected Calcium 9.6, Phosphorus Level 5.9H, Magnesium Level 1.7L, Total Bilirubin 0.3, Aspartate Amino Transf (AST/SGOT) 44H, Alanine Aminotransferase ( ALT/SGPT) 16, Alkaline Phosphatase 55, Total Protein 4.1L, Albumin 1.9L, Triglycerides Level 188H Microbiology 12/13/18 Blood Culture - Final, Complete No growth 12/05/18 Urine Culture - Final, Complete See Report Assessment/Plan Assessment/Plan Assess & Plan/Chief Complaint 1. 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 Acute Exacerbation of COPD--on weaning dose of solumedrol 3. RLL Pneumonia--repeat CXR stable 4. Fall with left wrist skin tear and left knee contusion--wounds dressed 5. Thrush--on nystatin 6. Acute Renal Insufficiency--hydrate and monitor Cr 7. Acute on Chronic Respiratory Failure--down to NC 8. Acute on Chronic Diastolic CHF--on IV lasix and diuresing well 9. Acute on Chronic Anemia--H/H improved S/P transfusion 10. Severe Sepsis--WBC count back up so will check UA, blood cultures 11. Severe Debility--condition still guarded, does qualify for LTAC but with worsening condition will hold on transfer Clinical Quality Measures Admission Status Admission Dx 1. Acute non STEMI--admit to cardiac in ICU on Brilinta and Heparin with cardiac catheterization by cardiology 2. Hypertension--resume home meds 3. COPD--oxygen, nebulizer treatments 4. UTI--started on Bactrim 5. Chronic Anemia--monitor H/H 6. Left wrist skin tear and abrasions from fall--dressed and will monitor for bleeding with blood thinners DVT/VTE Risk/Contraindication: Risk Factor Score Per Nursin RFS Level Per Nursing on Admit: 3=High MELODY MCGEE DO Dec 22, 2018 18:27
[2018-12-22] MEDS: ATORVASTATIN 40 MG (LIPITOR) TABLET PO SCH (20:52)
[2018-12-22] MEDS: MIRTAZAPINE 15 MG (REMERON) TAB PO SCH (20:52)
[2018-12-23] MEDS: D5 NS W/KCL 20 MEQ/L 1,000 ML IV SCH (02:16)
[2018-12-23] MEDS: RT-ALBUTEROL/IPRATROPIUM 3 ML (DUONEB) VIAL INH SCH ×6 (02:18→22:52)
[2018-12-23 04:00] VITALS: BP 106/80
[2018-12-23] MEDS: NYSTATIN ORAL SUSP 5 ML UDC PO SCH ×4 (05:00→23:01)
[2018-12-23] MEDS: ACETAMINOPHEN 325 MG TABLET PO SCH ×4 (05:00→23:01)
[2018-12-23] MEDS: LACTOBACILLUS ACIDOPHILUS (PROBIOTIC) CAPSULE PO SCH ×3 (05:01→16:55)
[2018-12-23] MEDS: MEROPENEM 500 MG in WATER (STERILE) FOR INJECTION 10 ML IV SCH ×2 (06:07→17:41)
[2018-12-23 06:45] LABS: ALBUMIN 1.7 GM/DL (3.2-4.5); BILIRUBIN,TOTAL 0.2 MG/DL (0.1-1.0); CALCIUM 7.7 MG/DL (8.5-10.1); CREATININE SERUM 1.59 MG/DL (0.60-1.30); MAGNESIUM 1.8 MG/DL (1.8-2.4); POTASSIUM 5.4 MMOL/L (3.6-5.0); TOTAL PROTEIN 4.1 GM/DL (6.4-8.2)
[2018-12-23] MEDS: RT-ADVAIR HFA 115/21 MCG PER PUFF IH SCH ×2 (07:27→19:28)
[2018-12-23] MEDS: UMECLIDINIUM BROMIDE (INCRUSE ELLIPTA) 7'S IH SCH (07:28)
[2018-12-23 08:00] VITALS: BP 96/53
[2018-12-23] MEDS: ASPIRIN E.C. 81 MG (ECOTRIN) TAB PO SCH (09:00)
[2018-12-23] MEDS ORDERED: D5 1/2 NS 1000 ML IV SOLUTION 1,000 ML IV SCH (09:00)
[2018-12-23] MEDS: DIGOXIN 62.5 MCG (LANOXIN) TAB PO SCH (09:00)
[2018-12-23] MEDS: DIAZEPAM 5 MG (VALIUM) TABLET PO SCH (09:00)
[2018-12-23] MEDS: PANTOPRAZOLE 40 MG (PROTONIX) VIAL IV SCH (09:01)
[2018-12-23 09:08] LABS: BASOPHILS % (AUTO) 0 % (0-10); EOSINOPHILS # (AUTO) 0.1 10^3/uL (0.0-0.3); EOSINOPHILS % (AUTO) 0 % (0-10); HEMATOCRIT 32 % (35-52); HEMOGLOBIN 9.8 G/DL (11.5-16.0); LYMPHOCYTES # (AUTO) 0.3 X 10^3 (1.0-4.0); LYMPHOCYTES % (AUTO) 1 % (12-44); MEAN CORPUSCULAR HEMOGLOBIN 29 PG (25-34); MEAN CORPUSCULAR HGB CONC 31 G/DL (32-36); MEAN CORPUSCULAR VOLUME 93 FL (80-99); MEAN PLATELET VOLUME 10.1 FL (7.4-10.4); MONOCYTES # (AUTO) 0.3 X 10^3 (0.0-1.0); MONOCYTES % (AUTO) 1 % (0-12); NEUTROPHILS # (AUTO) 22.9 X 10^3 (1.8-7.8); NEUTROPHILS % (AUTO) 97 % (42-75); PLATELET COUNT 206 10^3/uL (130-400); RED CELL DISTRIBUTION WIDTH 16.4 % (10.0-14.5); WHITE BLOOD COUNT 23.7 10^3/uL (4.3-11.0)
--- NOTE | 2018-12-23 09:21 | Progress Note-Cardiology ---
Cardiology SOAP Progress Note Subjective: Sitting up in bed. More alert and conversive today. States "I'm in bad shape" . No c/o CP, palpitations. Feels abdominal discomfort is better. NG tube reinserted yesterday. Objective: I&O/Vital Signs 12/22/18 12/23/18 12/23/18 12/23/18 23:52 01:16 02:18 04:00 Temp 96.9 97.2 Pulse 82 79 80 Resp 16 18 B/P (MAP) 97/64 (75) 106/80 (89) Pulse Ox 100 99 94 O2 Delivery Nasal Cannula High Flow N/C O2 Flow Rate 5.00 5.00 3.00 12/23/18 12/23/18 12/23/18 12/23/18 07:00 07:29 07:32 07:32 Pulse 80 Pulse Ox 95 95 O2 Delivery High Flow N/C High Flow N/C High Flow N/C O2 Flow Rate 3.00 3.00 3.00 12/23/18 00:00 Intake Total 200 ml Output Total 2010 ml Balance -1810 ml Weight (Pounds): 16 Weight (Ounces): 0.7 Weight (Calculated Kilograms): 7.322850 Constitutional: AAO x 3, other (appears weak and tired, appropriately responsive) Respiratory: chest expansion is symmetric, chest is bilaterally symmetric, rhonchi (scattered), other (prolonged expiratory phase) Cardiovascular: No JVD; tachycardia, S1 and S2, systolic murmur Gastrointestional: other (post op abdomen, ileostomy; wound vac in place; NG tube in place to left nare) Extremities: swelling (generalized edema) Neurologic/Psychiatric: grossly intact, power is 5/5 both on sides Skin: No rash, No ulcerations; other (multiple bruises to arms and legs bilat) Results/Procedures: Labs Laboratory Tests 12/22/18 13:25: Lactic Acid Level 0.87 12/22/18 14:05: Urine Color YELLOW, Urine Clarity CLEAR, Urine pH 5, Urine Specific [place] 1.020, Urine Protein 2+H, Urine Glucose (UA) NEGATIVE, Urine Ketones 1+H, Urine Nitrite NEGATIVE, Urine Bilirubin NEGATIVE, Urine Urobilinogen NORMAL, Urine Leukocyte Esterase 1+H, Urine RBC (Auto) 3+H, Urine RBC 10-25H, Urine WBC 10-25H , Urine Squamous Epithelial Cells RARE, Urine Renal Epithelial Cells RARE, Urine Crystals PRESENTH, Urine Amorphous Sediment FEW LORNE URATESH, Urine Bacteria MODERATEH, Urine Casts PRESENT, Urine Hyaline Casts 2-5H, Urine Granular Casts 2-5H, Urine Mucus NEGATIVE, Urine Culture Indicated YES 12/22/18 15:55: White Blood Count 27.0H, Red Blood Count 3.59L, Hemoglobin 10.1L, Hematocrit 33L , Mean Corpuscular Volume 91, Mean Corpuscular Hemoglobin 28, Mean Corpuscular Hemoglobin Concent 31L, Red Cell Distribution Width 16.3H, Platelet Count 213, Mean Platelet Volume 10.0, Prothrombin Time 13.2, INR Comment 1.0, Sodium Level 139, Potassium Level 5.0, Chloride Level 105, Carbon Dioxide Level 31, Anion Gap 3L, Blood Urea Nitrogen 61H, Creatinine 1.81H, Estimat Glomerular Filtration Rate 27, BUN/Creatinine Ratio 34, Glucose Level 186H, Calcium Level 7.9L, Corrected Calcium 9.6, Phosphorus Level 5.9H, Magnesium Level 1.7L, Total Bilirubin 0.3, Aspartate Amino Transf (AST/SGOT) 44H, Alanine Aminotransferase ( ALT/SGPT) 16, Alkaline Phosphatase 55, Total Protein 4.1L, Albumin 1.9L, Triglycerides Level 188H 12/23/18 06:10: Sodium Level 142, Potassium Level 5.4H, Chloride Level 112H, Carbon Dioxide Level 26, Anion Gap 4L, Blood Urea Nitrogen 57H, Creatinine 1.59H, Estimat Glomerular Filtration Rate 31, BUN/Creatinine Ratio 36, Glucose Level 156H, Calcium Level 7.7L, Corrected Calcium 9.5, Phosphorus Level 5.0H, Magnesium Level 1.8, Total Bilirubin 0.2, Aspartate Amino Transf (AST/SGOT) 36H, Alanine Aminotransferase (ALT/SGPT) 12, Alkaline Phosphatase 63, Total Protein 4.1L, Albumin 1.7L 12/23/18 09:00: White Blood Count 23.7H, Red Blood Count 3.43L, Hemoglobin 9.8L, Hematocrit 32L , Mean Corpuscular Volume 93, Mean Corpuscular Hemoglobin 29, Mean Corpuscular Hemoglobin Concent 31L, Red Cell Distribution Width 16.4H, Platelet Count 206, Mean Platelet Volume 10.1, Neutrophils (%) (Auto) 97H, Lymphocytes (%) (Auto) 1L , Monocytes (%) (Auto) 1, Eosinophils (%) (Auto) 0, Basophils (%) (Auto) 0, Neutrophils # (Auto) 22.9H, Lymphocytes # (Auto) 0.3L, Monocytes # (Auto) 0.3, Eosinophils # (Auto) 0.1, Basophils # (Auto) 0.0, Neutrophils % (Manual) 97, Lymphocytes % (Manual) 1, Monocytes % (Manual) 1, Eosinophils % (Manual) 1, Blood Morphology Comment NORMAL Microbiology 12/13/18 Blood Culture - Final, Complete No growth 12/05/18 Urine Culture - Final, Complete See Report Procedures NAME: HAI [facility]GROVE [facility] REC#: [id number] PT STATUS: ADM IN : 1940 PHYSICIAN: MELODY PAZ DO ADMIT DATE: 12/05/18 Signed Date of Exam: 12/22/18 CT ABDOMEN/PELVIS WO PROCEDURE: CT abdomen and pelvis without contrast. TECHNIQUE: Multiple contiguous axial images were obtained through the abdomen and pelvis without the use of intravenous contrast. INDICATION: Status post colectomy. The patient has elevated white blood cell count. Correlation is made with prior exam from 12/13/2018. There is a moderate sized right pleural effusion with some associated atelectasis or infiltrate in the right lower lobe. No discrete liver mass is seen. The gallbladder is surgically absent. No biliary ductal dilatation is seen. The pancreas is atrophic. Spleen contains a small low-density, stable when compared with prior exam. The adrenal glands are stable. Left adrenal nodule appears stable. Kidneys contain cortical low densities which appear stable. No calculi or hydronephrosis is seen. Aorta is calcified but nonaneurysmal. Postsurgical changes of total colectomy are identified. Patient has an ostomy in the right para midline abdomen. There does appear to be diffuse fluid-filled distention to the stomach. In addition, there is diffuse fluid-filled distention of small bowel loops throughout the abdomen. No focal intra-abdominal transition is seen. There does appear to be a very small caliber bowel loop at the level of the ostomy in the anterior abdominal wall. The bowel loop could be pinched at this location producing obstruction. No bowel wall thickening is seen. No pneumatosis is identified. There is some free fluid in the perihepatic region. There is also a small amount of free fluid in the pelvis. No well-formed fluid collection is identified at this time. Patient appears to have a rectosigmoid stump. The bladder is decompressed by a Kelley catheter. Uterus is unremarkable. Generalized subcutaneous edema is identified suggestive of anasarca. Impression: 1. Moderate right pleural effusion with associated right basilar infiltrate or atelectasis. 2. Status post total colectomy. Patient does have a right para midline ileostomy. There is diffuse gastric as well as small bowel fluid-filled distention to the level of the ostomy where there is a small caliber bowel loop present. The possibility of focal obstruction at the ostomy site is suspected. 3. There is some free fluid in the abdomen and pelvis but no well-formed fluid collection or abscess is identified. Results were discussed with Dr. Yates prior to this dictation. Dictated by: Dictated on workstation # [id number] Dict: 12/22/18 1401 Trans: 12/22/18 1536 Interpreted by: KIRSTEN MEIER MD Electronically signed by: KIRSTEN MEIER MD 12/22/18 1536 A/P: Assessment: Surgery for toxic megacolon and ischemic bowel on 12/14/18 - s/p ileostomy - CT of 12-22-18 - probable ileus Ac on chronic resp failure due to ac exac of COPD and ac giron CHF Marked anemia of undetermined etiology, [facility]/ p transfusion Ac NSTEMI, but card cath of 12/06/18 shows only minimal CAD and elevated LVEDP. Cath in 2008, following NSTEMI, had also not shown any significant CAD Worsening leukocytosis - management per medical/surgical services S/P non-syncopal fall on 12-05-18 resulting in multiple abrasions Chronic kidney disease, stage 3, with some contrast nephropathy post card cath of 12/06/18 TIA on Mar 08 2018 for which she was seen in the ED Severe chronic obstructive pulmonary disease due to prior tobaccoism. Tobaccoism that she quit in 2005. H/O cardiomyopathy with an ejection fraction of 30%, both ischemic and non- ischemic per cardiac catheterization from December 2008. Most recent echocardiogram of May 2017 showed LVEF 55-60%. Mild to mod AoR, TR, and MR. Diastolic dysfunction. Palpitations, probably related to known paroxysmal supraventricular tachycardia/ atrial fibrillation, currently controlled. The patient is considered intolerant to warfarin for several reasons, including episodes of marked epistaxis and hemoptysis, even without warfarin therapy. Also, she is prone to falls, given her generalized frail status. She refuses any oral anticoagulants; agrees only to aspirin for stroke prophylaxis Severe anxiety, currently controlled. Osteoporosis and degenerative joint disease Gastroesophageal reflux. H/O intermittent congestive heart failure due to diastolic and systolic dysfunction of the left ventricle, currently controlled. Hyperlipidemia, well controlled on therapy with simvastatin. H/o left cataract surgery. Mild ascending aortic aneurysm measuring 4.2 cm found incidentally on a CT scan or 07/10/[address] Christine Morales nodules being followed by Dr King Carotid u/s of 04/19/18: less than 40% ROSY, 50-60% LICA stenoses Diagnosis of hypothyroidism in April 2018, managed by Dr Paz, but she had been noncompliant with thyroid replacement therapy Plan: * Complex management due to multiple comorbidities * H/H improved following transfusion * Gen weakness - continue PT * Hyperkalemia - IVF being started * Monitor lab closely * She is being evaluated for admission to [facility] in [place], [place] - currently on hold d/t change in status necessitating reinsertion of NG tube - probable ileus * Worsening leukocytosis - management per medical/surgical services * Prognosis guarded Physician Assessment Physician Assessment Reports gen malaise and weakness (profound). No cp or palp or syncope. Chronic shortness of breath Weak-appearing Cor: reg Lungs: diminished air entry at the bases Ext: mild to mod limb edema A&R * As documented in our note above that I updated (italics) and as noted below * Guarded/poor prognosis, given multiple comorbidities and unstable clinical status * Continue current regimen * Monitor labs KEE DAMON Dec 23, 2018 09:21 CASSIE ARANA MD [facility] Dec 23, 2018 10:16
[2018-12-23 09:55] LABS: EOSINOPHILS % (MANUAL) 1 %; LYMPHOCYTES % (MANUAL) 1 %; MONOCYTES % (MANUAL) 1 %; NEUTROPHILS % (MANUAL) 97 %; RBC MORPH NORMAL
--- NOTE | 2018-12-23 10:20 | Physical Therapy Progress Note ---
Therapy Progress Note 9:46 Pt in bed and refusing PT services today. Reassess pt on Wednesday. JANI WASSERMAN PT Dec 23, 2018 10:20
--- NOTE | 2018-12-23 10:50 | NUR ---
PT HAD NG PLACED TO SUCTION YESTERDAY DUE TO SUSPECTED ILEUS. PT INTAKE HAS BEEN POOR ENTIRE STAY. RECOMMEND IV NUTRITION SUPPORT TO INCREASE NUTRITIONAL STATUS WHILE GI SYSTEM IS UNABLE TO BE USED.
[2018-12-23] MEDS: SIMETHICONE 80 MG (MYLICON) CHEW PO SCH ×4 (11:00→21:03)
[2018-12-23] MEDS: SENNA W/DOCUSATE (SENOKOT S) TABLET PO SCH ×2 (11:01→21:03)
[2018-12-23] MEDS: ARTIFICAL TEARS 0.4 ML UNIT DOSE (REFRESH PLUS) OU SCH ×3 (11:01→21:02)
[2018-12-23] MEDS: DILTIAZEM 120 MG (CARDIZEM CD) CAP PO SCH (11:01)
[2018-12-23] MEDS: chlordiazePOXIDE 25 MG (LIBRIUM) CAP NON-FORMULARY PO SCH ×2 (11:02→21:02)
--- NOTE | 2018-12-23 11:17 | Pulmonary Progress Note ---
Sepsis Event Evaluation Height, Weight, BMI Height: 5'0.00" Weight: 127lbs. 0.7oz. 57.149960vr; 20.6 BMI Method:Stated Focused Exam Lactate Level 12/22/18 10:05: Lactic Acid Level 0.71 12/22/18 13:25: Lactic Acid Level 0.87 Exam Exam Vital Signs Date Time Temp Pulse Resp B/P (MAP) Pulse Ox O2 Delivery O2 Flow Rate FiO2 12/23/18 10:18 95 High Flow N/C 3.00 12/23/18 08:00 97.7 95 20 96/53 (67) 100 Nasal Cannula 5.00 12/23/18 07:32 High Flow N/C 3.00 12/23/18 07:32 95 High Flow N/C 3.00 12/23/18 07:29 95 High Flow N/C 3.00 12/23/18 07:00 80 12/23/18 04:00 97.2 80 18 106/80 (89) 94 3.00 12/23/18 02:18 99 High Flow N/C 5.00 12/23/18 01:16 79 12/22/18 23:52 96.9 82 16 97/64 (75) 100 Nasal Cannula 5.00 12/22/18 21:35 High Flow N/C 5.00 12/22/18 21:28 98 High Flow N/C 7.00 12/22/18 20:02 96.0 86 14 90/58 (69) 94 Nasal Cannula 6.00 12/22/18 19:35 Nasal Cannula 6.00 12/22/18 19:00 79 12/22/18 16:17 96.5 83 14 118/78 (91) 100 12/22/18 14:10 97 High Flow N/C 3.00 12/22/18 13:50 91 12/22/18 12:00 98.2 89 19 96/50 (65) 98 High Flow N/C 3.00 I & O 12/23/18 07:00 Intake Total 1210 ml Output Total 2220 ml Balance -1010 ml Height & Weight Height: 5'0.00" Weight: 127lbs. 0.7oz. 57.029941av; 20.6 BMI Method:Stated General Appearance: Other (drowsy) HEENT: Normal ENT Inspection Neck: Supple Respiratory: Lungs Clear, Decreased Breath Sounds Cardiovascular: Regular Rate, Rhythm Capillary Refill: Less Than 3 Seconds Gastrointestinal: abnormal bowel sounds, distended, tenderness (generalized) Extremity: Pedal Edema Neurologic/Psychiatric: Other (drowsy) Skin: Normal Color, Warm/Dry, Ecchymosis Results Lab Laboratory Tests 12/22/18 06:20 12/22/18 15:55 12/23/18 06:10 12/23/18 09:00 Assessment/Plan Assessment/Plan Acute on chronic Respiratory failure -OXygen -SVNS -Monitor s/p acute abdomen secondary to toxic megacolon and ischemia s/p surgery -Dr. Yates is following Severe sepsis with septic shock - improving -Continue Merrem Worsening Leukocytosis -repan culture -MRSA swab ARF -Lasix stopped yesterday -Hold ARB -IVF started CHF hx EF 30% -Hold Lasix COPDAE -SVNS Atelectasis with pneumonia -Merrem ARF -monitor Anxiety HTN Weakness -Consult PT/OT GREGOR JOSEPH DO Dec 23, 2018 11:17
[2018-12-23 12:00] VITALS: BP 106/51
[2018-12-23] MEDS ORDERED: BISACODYL 10 MG SUPP (DULCOLAX) PR NR (12:24)
--- NOTE | 2018-12-23 12:30 | NUR ---
DR. PEREZ AND GAVE PT. X 2 DULCOLAX SUPP PER RIGHT OSTOMY. TOL. BORDEN. PAIN MED. GIVEN PER PT REQUEST. Addendum: 12/23/18 at 1336 by KATHERIN ARMENDARIZ RN DR. PEREZ HERE.
[2018-12-23] MEDS: fentaNYL INJECTION 100 MCG/2 ML AMP IVP PRN ×2 (12:37→16:12)
--- NOTE | 2018-12-23 13:28 | Progress Note-Standard ---
Standard Progress Note Progress Notes/Assess & Plan Date Seen by a Provider: Dec 23, 2018 Time Seen by a Provider: 12:15 Progress/Assessment & Plan Called by the nurse regarding increased abdominal distention, very severe tenderness and hypotension requiring vasopressor support. On examination, she had evidence of diffuse peritonitis and therefore expiratory laparotomy was felt to be appropriate. 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 I have reviewed the operative details which may involve total colectomy and ileostomy. I've also highlighted increased morbidity, potential for mortality and postoperative complications of intra-abdominal abscess, bleeding etc. The patient and her sons, who happened to be at the bedside, appeared to comprehend the reality of the situation and express their consented to proceed with surgery, that would be conducted emergently. 12/14/18:hemodynamically stable. Levophed being weaned. Urine output satisfactory. White cell count decreasing. Hemoglobin stable. Ileostomy healthy. We'll try early enteral nutrition. Vent weaning to commence in 24-48 hours. continues to improve. Vent weaning expected. Ileostomy pink and healthy. extubated this morning. Appears to be comfortable and interactive. Midline wound reasonably healthy. No fascial dehiscence. Wound VAC would be placed today. NG tube would be removed and clear liquids allowed. slow improvement. Skin very fragile. Ileostomy functioning. Diet could be advanced. We will use an air mattress to minimize the risk of bedsores. Continues to improve. Oral intake better. poor appetite and reports insomnia. White cell count 17,000. Hypokalemia, being corrected. Suprapubic abdominal pain slightly better . physical therapy in progress. abdominal distention with dilated small bowel loops and stomach on CT scan. No intra-abdominal abscess. Good improvement with nasogastric decompression. Edema of the ileostomy. Digital exploration performed and the opening around the fascia gently dilated. Midline fascia intact. Final Diagnosis toxic megacolon. Postoperative ileus Focused Exam Lactate Level 12/22/18 10:05: Lactic Acid Level 0.71 12/22/18 13:25: Lactic Acid Level 0.87 DIVYA PEREZ MD Dec 23, 2018 13:28
[2018-12-23] MEDS ORDERED: TPN IV SCH (13:45)
--- NOTE | 2018-12-23 13:49 | Progress Note (SOAP) ---
Subjective Date Seen by a Provider: Dec 23, 2018 Time Seen by a Provider: 13:46 Subjective/Events-last exam Fwup Acute on Chronic Respiratory Failure, Severe Sepsis, toxic megacolon--S/P colectomy, post-op ileus, pneumonia, COPD with acute exacerbation, UTI, fall with left arm skin tear and knee abrasions, anemia, CHF--acute on chronic. NG tube in place. Resting comfortably. Focused Exam Lactate Level 12/22/18 10:05: Lactic Acid Level 0.71 12/22/18 13:25: Lactic Acid Level 0.87 Objective Exam Vital Signs Date Time Temp Pulse Resp B/P (MAP) Pulse Ox O2 Delivery O2 Flow Rate FiO2 12/23/18 13:02 86 12/23/18 10:18 95 High Flow N/C 3.00 12/23/18 08:00 97.7 95 20 96/53 (67) 100 Nasal Cannula 5.00 12/23/18 08:00 High Flow N/C 6.00 12/23/18 07:32 High Flow N/C 3.00 12/23/18 07:32 95 High Flow N/C 3.00 12/23/18 07:29 95 High Flow N/C 3.00 12/23/18 07:00 80 12/23/18 04:00 97.2 80 18 106/80 (89) 94 3.00 12/23/18 02:18 99 High Flow N/C 5.00 12/23/18 01:16 79 12/22/18 23:52 96.9 82 16 97/64 (75) 100 Nasal Cannula 5.00 12/22/18 21:35 High Flow N/C 5.00 12/22/18 21:28 98 High Flow N/C 7.00 12/22/18 20:02 96.0 86 14 90/58 (69) 94 Nasal Cannula 6.00 12/22/18 19:35 Nasal Cannula 6.00 12/22/18 19:00 79 12/22/18 16:17 96.5 83 14 118/78 (91) 100 12/22/18 14:10 97 High Flow N/C 3.00 12/22/18 13:50 91 I & O 12/23/18 07:00 Intake Total 1210 ml Output Total 2220 ml Balance -1010 ml Capillary Refill : Less Than 3 SecondsLess Than 3 Seconds General Appearance: No Apparent Distress Neck: Supple Respiratory: Lungs Clear Cardiovascular: Regular Rate, Rhythm, Systolic Murmur Gastrointestinal: soft, abnormal bowel sounds, other (ostomy pink, wound vac in place) Extremity: Pedal Edema Neurologic/Psychiatric: Other (resting comfortably) Results Lab Laboratory Tests 12/22/18 14:05: Urine Color YELLOW, Urine Clarity CLEAR, Urine pH 5, Urine Specific Stovall 1.020, Urine Protein 2+H, Urine Glucose (UA) NEGATIVE, Urine Ketones 1+H, Urine Nitrite NEGATIVE, Urine Bilirubin NEGATIVE, Urine Urobilinogen NORMAL, Urine Leukocyte Esterase 1+H, Urine RBC (Auto) 3+H, Urine RBC 10-25H, Urine WBC 10-25H , Urine Squamous Epithelial Cells RARE, Urine Renal Epithelial Cells RARE, Urine Crystals PRESENTH, Urine Amorphous Sediment FEW LORNE URATESH, Urine Bacteria MODERATEH, Urine Casts PRESENT, Urine Hyaline Casts 2-5H, Urine Granular Casts 2-5H, Urine Mucus NEGATIVE, Urine Culture Indicated YES 12/22/18 15:55: White Blood Count 27.0H, Red Blood Count 3.59L, Hemoglobin 10.1L, Hematocrit 33L , Mean Corpuscular Volume 91, Mean Corpuscular Hemoglobin 28, Mean Corpuscular Hemoglobin Concent 31L, Red Cell Distribution Width 16.3H, Platelet Count 213, Mean Platelet Volume 10.0, Prothrombin Time 13.2, INR Comment 1.0, Sodium Level 139, Potassium Level 5.0, Chloride Level 105, Carbon Dioxide Level 31, Anion Gap 3L, Blood Urea Nitrogen 61H, Creatinine 1.81H, Estimat Glomerular Filtration Rate 27, BUN/Creatinine Ratio 34, Glucose Level 186H, Calcium Level 7.9L, Corrected Calcium 9.6, Phosphorus Level 5.9H, Magnesium Level 1.7L, Total Bilirubin 0.3, Aspartate Amino Transf (AST/SGOT) 44H, Alanine Aminotransferase ( ALT/SGPT) 16, Alkaline Phosphatase 55, Total Protein 4.1L, Albumin 1.9L, Triglycerides Level 188H 12/23/18 06:10: Sodium Level 142, Potassium Level 5.4H, Chloride Level 112H, Carbon Dioxide Level 26, Anion Gap 4L, Blood Urea Nitrogen 57H, Creatinine 1.59H, Estimat Glomerular Filtration Rate 31, BUN/Creatinine Ratio 36, Glucose Level 156H, Calcium Level 7.7L, Corrected Calcium 9.5, Phosphorus Level 5.0H, Magnesium Level 1.8, Total Bilirubin 0.2, Aspartate Amino Transf (AST/SGOT) 36H, Alanine Aminotransferase (ALT/SGPT) 12, Alkaline Phosphatase 63, Total Protein 4.1L, Albumin 1.7L 12/23/18 09:00: White Blood Count 23.7H, Red Blood Count 3.43L, Hemoglobin 9.8L, Hematocrit 32L , Mean Corpuscular Volume 93, Mean Corpuscular Hemoglobin 29, Mean Corpuscular Hemoglobin Concent 31L, Red Cell Distribution Width 16.4H, Platelet Count 206, Mean Platelet Volume 10.1, Neutrophils (%) (Auto) 97H, Lymphocytes (%) (Auto) 1L , Monocytes (%) (Auto) 1, Eosinophils (%) (Auto) 0, Basophils (%) (Auto) 0, Neutrophils # (Auto) 22.9H, Lymphocytes # (Auto) 0.3L, Monocytes # (Auto) 0.3, Eosinophils # (Auto) 0.1, Basophils # (Auto) 0.0, Neutrophils % (Manual) 97, Lymphocytes % (Manual) 1, Monocytes % (Manual) 1, Eosinophils % (Manual) 1, Blood Morphology Comment NORMAL Microbiology 12/13/18 Blood Culture - Final, Complete No growth 12/05/18 Urine Culture - Final, Complete See Report Assessment/Plan Assessment/Plan Assess & Plan/Chief Complaint 1. 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 Acute Exacerbation of COPD--on weaning dose of solumedrol 3. RLL Pneumonia--repeat CXR stable 4. Fall with left wrist skin tear and left knee contusion--wounds dressed 5. Thrush--on nystatin 6. Acute Renal Insufficiency--hydrate and monitor Cr 7. Acute on Chronic Respiratory Failure--down to NC 8. Acute on Chronic Diastolic CHF--lasix on hold 9. Acute on Chronic Anemia--H/H improved S/P transfusion 10. Severe Sepsis--WBC count down little today, on merrem, repeat CBC in AM 11. Severe Debility--condition still guarded, does qualify for LTAC but with worsening condition will hold on transfer Clinical Quality Measures Admission Status Admission Dx 1. Acute non STEMI--admit to cardiac in ICU on Brilinta and Heparin with cardiac catheterization by cardiology 2. Hypertension--resume home meds 3. COPD--oxygen, nebulizer treatments 4. UTI--started on Bactrim 5. Chronic Anemia--monitor H/H 6. Left wrist skin tear and abrasions from fall--dressed and will monitor for bleeding with blood thinners DVT/VTE Risk/Contraindication: Risk Factor Score Per Nursin RFS Level Per Nursing on Admit: 3=High MELODY MCGEE DO Dec 23, 2018 13:49
[2018-12-23] MEDS ORDERED: metroNIDAZOLE 500MG/100ML IVPB 100 ML IV SCH (14:00)
[2018-12-23 15:09] LABS: INR 0.9 (0.8-1.4); PROTHROMBIN TIME PATIENT 12.6 SEC (12.2-14.7)
[2018-12-23 15:12] LABS: MAGNESIUM 1.7 MG/DL (1.8-2.4); PHOSPHORUS 4.5 MG/DL (2.3-4.7)
[2018-12-23 15:42] VITALS: BP 109/56
[2018-12-23] MEDS: ENOXAPARIN 30 MG/0.3 ML (LOVENOX) SYR SC SCH (16:19)
--- NOTE | 2018-12-23 16:20 | NUR ---
DR. PEREZ NOTIFIED OF MIN. BLEEDING FROM NG TUBE AND RIGHT LOWER OSTOMY TO ABD. V/S=102/55 P=98 RESP=20 O2 SAT=98 % WITH O2 AT [address] PEREZ STATED TO HOLD LOVENOX TODAY.
[2018-12-23] MEDS: 1/2 NS IV SOLUTION 1,000 ML IV SCH (16:36)
[2018-12-23] MEDS: metroNIDAZOLE 500MG/100ML IVPB 100 ML IV SCH ×2 (16:46→23:49)
[2018-12-23] MEDS: FAMOTIDINE 20 MG (PEPCID) TABLET PO SCH (16:51)
[2018-12-23] MEDS ORDERED: SODIUM ACETATE IV SCH ×9 (17:00)
[2018-12-23] MEDS ORDERED: [UNRECOGNIZED DRUG - OTHER] IV SCH ×9 (17:00)
[2018-12-23] MEDS ORDERED: SODIUM CHLORIDE IV SCH ×9 (17:00)
--- NOTE | 2018-12-23 17:42 | NUR ---
AIR BED NOT WORKING. SMALL STAGE 2 AREA TO COCCYX WITH MUCH REDNESS AROUND AREA. TURNED Q 2 HR. CHANGED AIR BED WITH ICU AIR BED. IN HOUSE CRA NOTIFIED OF PT. WOUND AND AIR BED NOT WORKING. ALLEVYN GENTLE BORDER APPLIED TO AREA.
[2018-12-23 19:43] VITALS: BP 104/53
[2018-12-23] MEDS: ATORVASTATIN 40 MG (LIPITOR) TABLET PO SCH (21:02)
[2018-12-23] MEDS: MIRTAZAPINE 15 MG (REMERON) TAB PO SCH (21:03)
[2018-12-24] VITALS (10 sets, daily range): BP systolic 104–134; BP diastolic 52–62
[2018-12-24] MEDS: RT-ALBUTEROL/IPRATROPIUM 3 ML (DUONEB) VIAL INH SCH ×5 (02:21→18:48)
[2018-12-24] MEDS: NYSTATIN ORAL SUSP 5 ML UDC PO SCH ×3 (04:12→18:11)
[2018-12-24] MEDS: 1/2 NS IV SOLUTION 1,000 ML IV SCH ×3 (04:12→17:00)
[2018-12-24] MEDS: ACETAMINOPHEN 325 MG TABLET PO SCH ×4 (04:12→23:00)
[2018-12-24] MEDS: LACTOBACILLUS ACIDOPHILUS (PROBIOTIC) CAPSULE PO SCH ×3 (04:26→17:29)
[2018-12-24] MEDS: MEROPENEM 500 MG in WATER (STERILE) FOR INJECTION 10 ML IV SCH ×2 (05:37→18:03)
[2018-12-24 05:57] LABS: BASOPHILS % (AUTO) 0 % (0-10); EOSINOPHILS # (AUTO) 0.2 10^3/uL (0.0-0.3); EOSINOPHILS % (AUTO) 1 % (0-10); HEMATOCRIT 30 % (35-52); HEMOGLOBIN 8.9 G/DL (11.5-16.0); LYMPHOCYTES # (AUTO) 0.3 X 10^3 (1.0-4.0); LYMPHOCYTES % (AUTO) 2 % (12-44); MEAN CORPUSCULAR HEMOGLOBIN 28 PG (25-34); MEAN CORPUSCULAR HGB CONC 30 G/DL (32-36); MEAN CORPUSCULAR VOLUME 93 FL (80-99); MEAN PLATELET VOLUME 9.9 FL (7.4-10.4); MONOCYTES # (AUTO) 0.4 X 10^3 (0.0-1.0); MONOCYTES % (AUTO) 2 % (0-12); NEUTROPHILS # (AUTO) 18.9 X 10^3 (1.8-7.8); NEUTROPHILS % (AUTO) 96 % (42-75); PLATELET COUNT 193 10^3/uL (130-400); RED CELL DISTRIBUTION WIDTH 16.4 % (10.0-14.5); WHITE BLOOD COUNT 19.8 10^3/uL (4.3-11.0)
[2018-12-24 06:08] LABS: INR 0.9 (0.8-1.4); PROTHROMBIN TIME PATIENT 12.4 SEC (12.2-14.7)
[2018-12-24 06:23] LABS: ALBUMIN 1.6 GM/DL (3.2-4.5); BILIRUBIN,TOTAL 0.2 MG/DL (0.1-1.0); CALCIUM 7.9 MG/DL (8.5-10.1); CREATININE SERUM 1.17 MG/DL (0.60-1.30); MAGNESIUM 1.7 MG/DL (1.8-2.4); PHOSPHORUS 4.1 MG/DL (2.3-4.7)
--- NOTE | 2018-12-24 08:44 | Pulmonary Progress Note ---
Subjective Time Seen by a Provider: 08:46 Subjective/Events-last exam Pt is very fragile with guarded prognosis. Sepsis Event Evaluation Height, Weight, BMI Height: 5'0.00" Weight: 129lbs. 0.0oz. 58.380704sg; 20.6 BMI Method:Stated Focused Exam Lactate Level 12/22/18 10:05: Lactic Acid Level 0.71 12/22/18 13:25: Lactic Acid Level 0.87 Exam Exam Vital Signs Date Time Temp Pulse Resp B/P (MAP) Pulse Ox O2 Delivery O2 Flow Rate FiO2 12/24/18 07:46 101 12/24/18 04:02 97.4 106 18 119/57 (77) 96 Nasal Cannula 3.00 12/24/18 02:23 96 High Flow N/C 3.00 12/24/18 01:00 93 12/24/18 00:00 97.4 95 18 107/53 (71) 99 Nasal Cannula 3.00 12/23/18 22:57 92 High Flow N/C 3.00 12/23/18 19:43 97.4 88 18 104/53 (70) 100 Nasal Cannula 5.00 12/23/18 19:40 Nasal Cannula 3.00 12/23/18 19:34 High Flow N/C 12/23/18 19:31 96 High Flow N/C 3.00 12/23/18 19:00 89 12/23/18 15:42 97.4 88 16 109/56 (73) 96 Nasal Cannula 5.00 12/23/18 15:42 88 95 32 12/23/18 14:40 96 High Flow N/C 3.00 12/23/18 13:02 86 12/23/18 12:00 97.2 85 16 106/51 (69) 100 Nasal Cannula 5.00 12/23/18 10:18 95 High Flow N/C 3.00 I & O 12/24/18 07:00 Intake Total 1100 ml Output Total 1435 ml Balance -335 ml Height & Weight Height: 5'0.00" Weight: 129lbs. 0.0oz. 58.421862pn; 20.6 BMI Method:Stated General Appearance: Chronically ill, Mild Distress, Thin HEENT: Normal ENT Inspection Neck: Supple Respiratory: Lungs Clear Cardiovascular: Regular Rate, Rhythm, Systolic Murmur Capillary Refill: Less Than 3 Seconds Gastrointestinal: soft, abnormal bowel sounds, other (ostomy pink, wound vac in place) Extremity: Pedal Edema Neurologic/Psychiatric: Other (resting comfortably) Skin: Normal Color, Warm/Dry, Ecchymosis Results Lab Laboratory Tests 12/22/18 15:55 12/23/18 06:10 12/23/18 09:00 12/24/18 05:45 Assessment/Plan Assessment/Plan Acute on chronic Respiratory failure -OXygen -SVNS -Monitor s/p acute abdomen secondary to toxic megacolon and ischemia s/p surgery -Dr. Yates is following -Repeat CT of abd/pelvis - shows mod r effusion. free fluid in abd, and possible bowl obstruction -Dr. Yates is following Moderate right pleural effusion -Monitor for now Severe sepsis with septic shock - improving -Continue Merrem/flagyl Worsening Leukocytosis -repan culture -MRSA swab ARF-- improving -Lasix stopped yesterday -Hold ARB -IVF started CHF hx EF 30% -Hold Lasix COPDAE -SVNS Atelectasis with pneumonia -Merrem ARF -monitor Anxiety HTN Weakness -Consult PT/OT Pt is very fragile with guarded prognosis. GREGOR JOSEPH DO Dec 24, 2018 08:44
[2018-12-24] MEDS: RT-ADVAIR HFA 115/21 MCG PER PUFF IH SCH ×2 (08:45→18:50)
[2018-12-24] MEDS: UMECLIDINIUM BROMIDE (INCRUSE ELLIPTA) 7'S IH SCH (08:45)
[2018-12-24] MEDS: PANTOPRAZOLE 40 MG (PROTONIX) VIAL IV SCH (09:17)
[2018-12-24] MEDS: DIGOXIN 62.5 MCG (LANOXIN) TAB PO SCH (09:17)
[2018-12-24] MEDS: DIAZEPAM 5 MG (VALIUM) TABLET PO SCH (09:17)
[2018-12-24] MEDS: ONDANSETRON 4 MG/2 ML (SDV) Z0FRAN IV PRN (09:17)
[2018-12-24] MEDS: SIMETHICONE 80 MG (MYLICON) CHEW PO SCH ×4 (09:19→21:13)
[2018-12-24] MEDS: ASPIRIN E.C. 81 MG (ECOTRIN) TAB PO SCH (09:19)
[2018-12-24] MEDS: DILTIAZEM 120 MG (CARDIZEM CD) CAP PO SCH (09:19)
[2018-12-24] MEDS: ARTIFICAL TEARS 0.4 ML UNIT DOSE (REFRESH PLUS) OU SCH ×3 (09:19→21:12)
--- NOTE | 2018-12-24 09:19 | NUR ---
TPN: ADVANCE TPN TO 52 ML/HR, TO PROVIDE 1280 KCAL AND 50 GM PROTEIN, NO POTASSIUM OR PHOSPHATE IN TPN AT THIS TIME. GOAL; [id number] KCAL AND 60-75 GM PROTEIN, ADD POTASSIUM AND PHOSPHATE PENDING LABS. TRANSITION OFF TPN WHEN ORAL INTAKE PROVIDES 60-75% METABOLIC NEEDS.
[2018-12-24] MEDS: chlordiazePOXIDE 25 MG (LIBRIUM) CAP NON-FORMULARY PO SCH ×2 (09:20→21:12)
[2018-12-24] MEDS: SENNA W/DOCUSATE (SENOKOT S) TABLET PO SCH ×2 (09:20→21:13)
[2018-12-24] MEDS: metroNIDAZOLE 500MG/100ML IVPB 100 ML IV SCH ×2 (09:23→16:11)
[2018-12-24] MEDS: MAGNESIUM 1 GM/100 ML IVPB 100 ML IV SCH ×2 (09:23→12:11)
--- NOTE | 2018-12-24 11:04 | Progress Note-Hospitalist ---
Subjective HPI/CC On Admission Date Seen by Provider: Dec 24, 2018 Time Seen by Provider: 11:30 Subjective/Events-last exam Patient required NGT placement and removed 1400cc of liquid Enterococcus on BCx so added Vancomycin this morning after micro called me Roff transfer pending at this time Very fragile status and appears to have poor prognosis Patient denies pain Overall very complicated case Review of Systems General: Fatigue Focused Exam Lactate Level 12/22/18 10:05: Lactic Acid Level 0.71 12/22/18 13:25: Lactic Acid Level 0.87 Objective Exam Vital Signs Vital Signs Date Time Temp Pulse Resp B/P (MAP) Pulse Ox O2 Delivery O2 Flow Rate FiO2 12/24/18 18:52 97 High Flow N/C 3.00 12/24/18 18:00 97.4 84 24 113/56 (75) 12/23/18 15:42 32 Capillary Refill : Less Than 3 SecondsLess Than 3 Seconds General Appearance: Anxious, Chronically ill, Mild Distress, Thin HEENT: Normal ENT Inspection Neck: Supple Respiratory: Lungs Clear, Normal Breath Sounds, No Accessory Muscle Use, No Respiratory Distress Cardiovascular: Regular Rate, Rhythm, Systolic Murmur Gastrointestinal: Normal Bowel Sounds Rectal: Deferred Back: No CVA Tenderness Extremity: Pedal Edema Neurologic/Psychiatric: Other (resting comfortably) Skin: Normal Color, Warm/Dry, Ecchymosis Results/Procedures Lab Laboratory Tests 12/24/18 05:45 Patient resulted labs reviewed. Assessment/Plan Assessment and Plan Assess & Plan/Chief Complaint Respiratory failure s/p intubation Ileus with NGT placement Enterococcus on Bcx added [place] this morning Assessment per PCP Dr Paz: 1. 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 Acute Exacerbation of COPD--on weaning dose of solumedrol 3. RLL Pneumonia--cont Maxipime 4. Fall with left wrist skin tear and left knee contusion--wounds dressed 5. Thrush--on diflucan 6. Acute Renal Insufficiency--hydrate and monitor Cr 7. Acute on Chronic Respiratory Failure--off ventilator 8. Acute on Chronic Diastolic CHF--on IV lasix and diuresing well 9. Acute on Chronic Anemia--S/P transfusion, monitor H/H 10. Severe Sepsis--on maxipime and sepsis protocol 11. Condition guarded DNR Very declined status Roff transfer on hold NHT placement Very guarded status Critical Care Critically Ill Patient Diagnosis/Problems Diagnosis/Problems (1) Ileus Status: Acute (2) Bacteremia due to Enterococcus Status: Acute (3) Nasogastric tube present Status: Acute (4) Respiratory failure Status: Resolved Qualifiers: Chronicity: acute Respiratory failure complication: hypoxia Qualified Codes: J96.01 - Acute respiratory failure with hypoxia Resolution Date/Time: 12/24/18 @ 19:57 (5) Pneumonia Status: Resolved Qualifiers: Pneumonia type: due to unspecified organism Resolution Date/Time: 12/24/18 @ 19:57 (6) Anemia Status: Chronic Qualifiers: Anemia type: unspecified type Qualified Codes: D64.9 - Anemia, unspecified (7) Transfusion of blood during current hospitalization Status: Resolved Resolution Date/Time: 12/24/18 @ 19:57 (8) Elevated troponin Status: Resolved Resolution Date/Time: 12/24/18 @ 19:57 (9) Frailty Status: Acute (10) COPD (chronic obstructive pulmonary disease) Status: Chronic Qualifiers: COPD type: unspecified COPD Qualified Codes: J44.9 - Chronic obstructive pulmonary disease, unspecified (11) S/P cardiac cath Status: Acute (12) Toxic megacolon Status: Resolved Resolution Date/Time: 12/17/18 @ 14:47 (13) S/P colectomy Status: Acute Clinical Quality Measures DVT/VTE Risk/Contraindication: Risk Factor Score Per Nursin RFS Level Per Nursing on Admit: 3=High ANGIE MALONE DO Dec 24, 2018 11:04
[2018-12-24] MEDS ORDERED: VANCOMYCIN 1250 MG/NS 250 ML IVPB IV NR ×2 (12:33)
[2018-12-24] MEDS: fentaNYL INJECTION 100 MCG/2 ML AMP IVP PRN ×2 (12:35→21:05)
--- NOTE | 2018-12-24 13:03 | Progress Note (SOAP) ---
Subjective Date Seen by a Provider: Dec 24, 2018 Time Seen by a Provider: 12:00 Subjective/Events-last exam sleeping. no apparent pain or distress. decreased NGT output. ileostomy output mild-minimal however functional. Focused Exam Lactate Level 12/22/18 10:05: Lactic Acid Level 0.71 12/22/18 13:25: Lactic Acid Level 0.87 Objective Exam Vital Signs Date Time Temp Pulse Resp B/P (MAP) Pulse Ox O2 Delivery O2 Flow Rate FiO2 12/24/18 12:46 86 12/24/18 11:51 98.5 94 20 104/52 (69) 99 Nasal Cannula 3.00 12/24/18 11:15 95 High Flow N/C 3.00 12/24/18 08:46 96 High Flow N/C 3.00 12/24/18 08:00 96.6 93 20 104/52 (69) 98 Nasal Cannula 3.00 12/24/18 08:00 High Flow N/C 6.00 12/24/18 07:46 101 12/24/18 04:02 97.4 106 18 119/57 (77) 96 Nasal Cannula 3.00 12/24/18 02:23 96 High Flow N/C 3.00 12/24/18 01:00 93 12/24/18 00:00 97.4 95 18 107/53 (71) 99 Nasal Cannula 3.00 12/23/18 22:57 92 High Flow N/C 3.00 12/23/18 19:43 97.4 88 18 104/53 (70) 100 Nasal Cannula 5.00 12/23/18 19:40 Nasal Cannula 3.00 12/23/18 19:34 High Flow N/C 12/23/18 19:31 96 High Flow N/C 3.00 12/23/18 19:00 89 12/23/18 15:42 97.4 88 16 109/56 (73) 96 Nasal Cannula 5.00 12/23/18 15:42 88 95 32 12/23/18 14:40 96 High Flow N/C 3.00 12/23/18 13:02 86 I & O 12/24/18 07:00 Intake Total 1100 ml Output Total 1435 ml Balance -335 ml Capillary Refill : Less Than 3 SecondsLess Than 3 Seconds General Appearance: No Apparent Distress HEENT: PERRL/EOMI Neck: Full Range of Motion Respiratory: Chest Non Tender, Normal Breath Sounds Cardiovascular: Regular Rate, Rhythm Gastrointestinal: soft, other (wound vac intact) Extremity: Normal Capillary Refill Neurologic/Psychiatric: Alert, Oriented x3 Skin: Normal Color Lymphatic: No Adenopathy Results Lab Laboratory Tests 12/23/18 14:45: Prothrombin Time 12.6, INR Comment 0.9, Phosphorus Level 4.5, Magnesium Level 1.7L, Triglycerides Level 185H 12/23/18 23:54: Glucometer 102 12/24/18 05:45: Prothrombin Time 12.4, INR Comment 0.9, Phosphorus Level 4.1, Magnesium Level 1.7L, Triglycerides Level 206H, White Blood Count 19.8H, Red Blood Count 3.17L, Hemoglobin 8.9L, Hematocrit 30L, Mean Corpuscular Volume 93, Mean Corpuscular Hemoglobin 28, Mean Corpuscular Hemoglobin Concent 30L, Red Cell Distribution Width 16.4H, Platelet Count 193, Mean Platelet Volume 9.9, Neutrophils (%) (Auto ) 96H, Lymphocytes (%) (Auto) 2L, Monocytes (%) (Auto) 2, Eosinophils (%) (Auto ) 1, Basophils (%) (Auto) 0, Neutrophils # (Auto) 18.9H, Lymphocytes # (Auto) 0.3L, Monocytes # (Auto) 0.4, Eosinophils # (Auto) 0.2, Basophils # (Auto) 0.0, Sodium Level 140, Potassium Level 5.0, Chloride Level 112H, Carbon Dioxide Level 25, Anion Gap 3L, Blood Urea Nitrogen 50H, Creatinine 1.17, Estimat Glomerular Filtration Rate 45, BUN/Creatinine Ratio 43, Glucose Level 98, Calcium Level 7.9L, Corrected Calcium 9.8, Total Bilirubin 0.2, Aspartate Amino Transf (AST/SGOT) 35H, Alanine Aminotransferase (ALT/SGPT) 12, Alkaline Phosphatase 58, Total Protein 4.0L, Albumin 1.6L 12/24/18 05:46: Glucometer 96 Microbiology 12/22/18 Blood Culture - Preliminary, Resulted No growth 12/22/18 Urine Culture - Final, Complete NO GROWTH Assessment/Plan Assessment/Plan Assess & Plan/Chief Complaint s/p total colectomy for toxic megacolon. continue NGT for now and await ileostomy output. Clinical Quality Measures DVT/VTE Risk/Contraindication: Risk Factor Score Per Nursin RFS Level Per Nursing on Admit: 3=High AVE SAUER MD Dec 24, 2018 13:03
[2018-12-24] MEDS: FAMOTIDINE 20 MG (PEPCID) TABLET PO SCH (16:00)
[2018-12-24] MEDS: SODIUM ACETATE IV SCH ×9 (17:53)
[2018-12-24] MEDS: [UNRECOGNIZED DRUG - OTHER] IV SCH ×9 (17:53)
[2018-12-24] MEDS: SODIUM CHLORIDE IV SCH ×9 (17:53)
--- NOTE | 2018-12-24 18:07 | Progress Note-Cardiology ---
Cardiology SOAP Progress Note Subjective: Does not report symptoms Appear weak and tired and lethargic Objective: I&O/Vital Signs 12/24/18 12/24/18 12/24/18 12/24/18 07:46 08:00 08:00 08:46 Temp 96.6 Pulse 101 93 Resp 20 B/P (MAP) 104/52 (69) Pulse Ox 98 96 O2 Delivery High Flow N/C Nasal Cannula High Flow N/C O2 Flow Rate 6.00 3.00 3.00 12/24/18 12/24/18 12/24/18 12/24/18 11:15 11:51 12:46 15:17 Temp 98.5 Pulse 94 86 Resp 20 B/P (MAP) 104/52 (69) Pulse Ox 95 99 94 O2 Delivery High Flow N/C Nasal Cannula High Flow N/C O2 Flow Rate 3.00 3.00 3.00 12/24/18 12/24/18 16:00 17:00 Temp 97.9 98.7 Pulse 87 82 Resp 26 22 B/P (MAP) 134/62 (86) 121/58 (79) Pulse Ox 97 93 O2 Delivery High Flow N/C High Flow N/C O2 Flow Rate 3.00 3.00 12/24/18 00:00 Intake Total 0 ml Output Total 975 ml Balance -975 ml Weight (Pounds): 129 Weight (Ounces): 0.0 Weight (Calculated Kilograms): 58.611132 Constitutional: AAO x 3, other (appears weak and tired, appropriately responsive) Respiratory: chest expansion is symmetric, chest is bilaterally symmetric, rhonchi (scattered), other (prolonged expiratory phase) Cardiovascular: No JVD; tachycardia, S1 and S2, systolic murmur Gastrointestional: other (post op abdomen, ileostomy; wound vac in place; NG tube in place to left nare) Extremities: swelling (generalized edema) Neurologic/Psychiatric: grossly intact, power is 5/5 both on sides Skin: No rash, No ulcerations; other (multiple bruises to arms and legs bilat) Results/Procedures: Labs Laboratory Tests 12/23/18 23:54: Glucometer 102 12/24/18 05:45: White Blood Count 19.8H, Red Blood Count 3.17L, Hemoglobin 8.9L, Hematocrit 30L , Mean Corpuscular Volume 93, Mean Corpuscular Hemoglobin 28, Mean Corpuscular Hemoglobin Concent 30L, Red Cell Distribution Width 16.4H, Platelet Count 193, Mean Platelet Volume 9.9, Neutrophils (%) (Auto) 96H, Lymphocytes (%) (Auto) 2L , Monocytes (%) (Auto) 2, Eosinophils (%) (Auto) 1, Basophils (%) (Auto) 0, Neutrophils # (Auto) 18.9H, Lymphocytes # (Auto) 0.3L, Monocytes # (Auto) 0.4, Eosinophils # (Auto) 0.2, Basophils # (Auto) 0.0, Prothrombin Time 12.4, INR Comment 0.9, Sodium Level 140, Potassium Level 5.0, Chloride Level 112H, Carbon Dioxide Level 25, Anion Gap 3L, Blood Urea Nitrogen 50H, Creatinine 1.17, Estimat Glomerular Filtration Rate 45, BUN/Creatinine Ratio 43, Glucose Level 98 , Calcium Level 7.9L, Corrected Calcium 9.8, Phosphorus Level 4.1, Magnesium Level 1.7L, Total Bilirubin 0.2, Aspartate Amino Transf (AST/SGOT) 35H, Alanine Aminotransferase (ALT/SGPT) 12, Alkaline Phosphatase 58, Total Protein 4.0L, Albumin 1.6L, Triglycerides Level 206H 12/24/18 05:46: Glucometer 96 Microbiology 12/22/18 Blood Culture - Preliminary, Resulted No growth 12/22/18 Urine Culture - Final, Complete NO GROWTH Laboratory Tests 12/23/18 06:10 12/23/18 09:00 12/24/18 05:45 A/P: Assessment: Surgery for toxic megacolon and ischemic bowel on 12/14/18 - s/p ileostomy - CT of 12-22-18 - probable ileus Ac on chronic resp failure due to ac exac of COPD and ac giron CHF Marked anemia of undetermined etiology, followed and treated by the Med S[facility], s/ p transfusion Ac NSTEMI, but card cath of 12/06/18 shows only minimal CAD and elevated LVEDP. Cath in 2008, following NSTEMI, had also not shown any significant CAD Worsening leukocytosis - management per medical/surgical services S/P non-syncopal fall on 12-05-18 resulting in multiple abrasions Chronic kidney disease, stage 3, with some contrast nephropathy post card cath of 12/06/18 TIA on Mar 08 2018 for which she was seen in the ED Severe chronic obstructive pulmonary disease due to prior tobaccoism. Tobaccoism that she quit in 2005. H/O cardiomyopathy with an ejection fraction of 30%, both ischemic and non- ischemic per cardiac catheterization from December 2008. Most recent echocardiogram of May 2017 showed LVEF 55-60%. Mild to mod AoR, TR, and MR. Diastolic dysfunction. Palpitations, probably related to known paroxysmal supraventricular tachycardia/ atrial fibrillation, currently controlled. The patient is considered intolerant to warfarin for several reasons, including episodes of marked epistaxis and hemoptysis, even without warfarin therapy. Also, she is prone to falls, given her generalized frail status. She refuses any oral anticoagulants; agrees only to aspirin for stroke prophylaxis Severe anxiety, currently controlled. Osteoporosis and degenerative joint disease Gastroesophageal reflux. H/O intermittent congestive heart failure due to diastolic and systolic dysfunction of the left ventricle, currently controlled. Hyperlipidemia, well controlled on therapy with simvastatin. H/o left cataract surgery. Mild ascending aortic aneurysm measuring 4.2 cm found incidentally on a CT scan or 07/10/[address] Christine Morales nodules being followed by Dr King Carotid u/s of 04/19/18: less than 40% ROSY, 50-60% LICA stenoses Diagnosis of hypothyroidism in April 2018, managed by Dr Paz, but she had been noncompliant with thyroid replacement therapy Plan: * Complex management due to multiple comorbidities * Prognosis guarded to poor * Monitor lab closely * Prognosis guarded CASSIE ARANA MD FACP FAC CCDS Dec 24, 2018 18:07
[2018-12-24] MEDS: ENOXAPARIN 30 MG/0.3 ML (LOVENOX) SYR SC SCH (18:27)
[2018-12-24] MEDS: MIRTAZAPINE 15 MG (REMERON) TAB PO SCH (21:13)
[2018-12-24] MEDS: ATORVASTATIN 40 MG (LIPITOR) TABLET PO SCH (21:13)
[2018-12-25] MEDS: metroNIDAZOLE 500MG/100ML IVPB 100 ML IV SCH ×3 (01:21→18:04)
[2018-12-25] MEDS: fentaNYL INJECTION 100 MCG/2 ML AMP IVP PRN ×2 (01:40→13:27)
[2018-12-25] MEDS: RT-ALBUTEROL/IPRATROPIUM 3 ML (DUONEB) VIAL INH SCH ×7 (02:27→23:23)
[2018-12-25 04:00] VITALS: BP 110/53
[2018-12-25 04:57] LABS: BASOPHILS % (AUTO) 0 % (0-10); EOSINOPHILS # (AUTO) 0.2 10^3/uL (0.0-0.3); EOSINOPHILS % (AUTO) 1 % (0-10); HEMATOCRIT 28 % (35-52); HEMOGLOBIN 8.9 G/DL (11.5-16.0); LYMPHOCYTES # (AUTO) 0.4 X 10^3 (1.0-4.0); LYMPHOCYTES % (AUTO) 3 % (12-44); MEAN CORPUSCULAR HEMOGLOBIN 29 PG (25-34); MEAN CORPUSCULAR HGB CONC 31 G/DL (32-36); MEAN CORPUSCULAR VOLUME 94 FL (80-99); MEAN PLATELET VOLUME 10.1 FL (7.4-10.4); MONOCYTES # (AUTO) 0.6 X 10^3 (0.0-1.0); MONOCYTES % (AUTO) 4 % (0-12); NEUTROPHILS # (AUTO) 13.8 X 10^3 (1.8-7.8); NEUTROPHILS % (AUTO) 93 % (42-75); PLATELET COUNT 163 10^3/uL (130-400); WHITE BLOOD COUNT 14.9 10^3/uL (4.3-11.0)
[2018-12-25 05:29] LABS: ALBUMIN 1.6 GM/DL (3.2-4.5); BILIRUBIN,TOTAL 0.2 MG/DL (0.1-1.0); CREATININE SERUM 1.15 MG/DL (0.60-1.30); MAGNESIUM 2.3 MG/DL (1.8-2.4); PHOSPHORUS 4.3 MG/DL (2.3-4.7); POTASSIUM 4.7 MMOL/L (3.6-5.0); TOTAL PROTEIN 3.9 GM/DL (6.4-8.2)
[2018-12-25] MEDS: ACETAMINOPHEN 325 MG TABLET PO SCH ×3 (05:34→18:06)
[2018-12-25] MEDS: MEROPENEM 500 MG in WATER (STERILE) FOR INJECTION 10 ML IV SCH ×2 (05:34→20:08)
[2018-12-25] MEDS: NYSTATIN ORAL SUSP 5 ML UDC PO SCH ×4 (05:34→18:08)
[2018-12-25 05:57] LABS: INR 1.1 (0.8-1.4); PROTHROMBIN TIME PATIENT 13.8 SEC (12.2-14.7)
[2018-12-25] MEDS: RT-ADVAIR HFA 115/21 MCG PER PUFF IH SCH ×2 (06:33→19:54)
[2018-12-25] MEDS: UMECLIDINIUM BROMIDE (INCRUSE ELLIPTA) 7'S IH SCH (06:34)
[2018-12-25] MEDS: LACTOBACILLUS ACIDOPHILUS (PROBIOTIC) CAPSULE PO SCH ×3 (07:00→18:07)
[2018-12-25 08:00] VITALS: BP 96/60
[2018-12-25] MEDS: 1/2 NS IV SOLUTION 1,000 ML IV SCH (08:15)
[2018-12-25] MEDS: SIMETHICONE 80 MG (MYLICON) CHEW PO SCH ×3 (08:51→18:08)
[2018-12-25] MEDS: ASPIRIN E.C. 81 MG (ECOTRIN) TAB PO SCH (08:51)
[2018-12-25] MEDS: DIGOXIN 62.5 MCG (LANOXIN) TAB PO SCH (08:51)
[2018-12-25] MEDS: PANTOPRAZOLE 40 MG (PROTONIX) VIAL IV SCH (08:51)
[2018-12-25] MEDS: SENNA W/DOCUSATE (SENOKOT S) TABLET PO SCH (08:51)
[2018-12-25] MEDS: DIAZEPAM 5 MG (VALIUM) TABLET PO SCH (08:52)
[2018-12-25] MEDS: chlordiazePOXIDE 25 MG (LIBRIUM) CAP NON-FORMULARY PO SCH (09:07)
[2018-12-25] MEDS: DILTIAZEM 120 MG (CARDIZEM CD) CAP PO SCH (09:08)
[2018-12-25] MEDS: ARTIFICAL TEARS 0.4 ML UNIT DOSE (REFRESH PLUS) OU SCH ×2 (09:08→13:08)
--- NOTE | 2018-12-25 11:39 | Progress Note (SOAP) ---
Subjective Date Seen by a Provider: Dec 25, 2018 Time Seen by a Provider: 10:35 Subjective/Events-last exam Patient seen with Dr. Dutta. Patient more awake and alert today but still drowsy. Does state she is having abdominal pain as well as nausea. Focused Exam Lactate Level 12/22/18 13:25: Lactic Acid Level 0.87 Objective Exam Vital Signs Date Time Temp Pulse Resp B/P (MAP) Pulse Ox O2 Delivery O2 Flow Rate FiO2 12/25/18 10:24 97 High Flow N/C 3.00 12/25/18 08:00 97.6 91 20 96/60 (72) 96 High Flow N/C 3.00 12/25/18 07:03 93 12/25/18 06:30 96 High Flow N/C 3.00 12/25/18 04:00 97.6 90 16 110/53 (72) 98 High Flow N/C 3.00 12/25/18 02:31 High Flow N/C 3.00 12/25/18 01:00 84 12/24/18 23:46 98.7 92 20 108/53 (71) 99 High Flow N/C 3.00 12/24/18 20:00 High Flow N/C 6.00 12/24/18 20:00 98.1 86 21 129/60 (83) 97 High Flow N/C 3.00 12/24/18 19:00 79 12/24/18 18:52 97 High Flow N/C 3.00 12/24/18 18:00 97.4 84 24 113/56 (75) 98 High Flow N/C 3.00 12/24/18 17:00 98.7 82 22 121/58 (79) 93 High Flow N/C 3.00 12/24/18 16:00 97.9 87 26 134/62 (86) 97 High Flow N/C 3.00 12/24/18 15:17 94 High Flow N/C 3.00 12/24/18 12:46 86 12/24/18 11:51 98.5 94 20 104/52 (69) 99 Nasal Cannula 3.00 I & O 12/25/18 07:00 Intake Total 210 ml Output Total 1805 ml Balance -1595 ml Capillary Refill : Less Than 3 SecondsLess Than 3 Seconds General Appearance: No Apparent Distress Neck: Normal Inspection, Non Tender, Supple Respiratory: Lungs Clear, Normal Breath Sounds, No Accessory Muscle Use, No Respiratory Distress Cardiovascular: Regular Rate, Rhythm, No Murmur Gastrointestinal: soft, tenderness, other (Ileostomy functioning) Extremity: Pedal Edema, Swelling (3+) Neurologic/Psychiatric: Alert, Oriented x3 Skin: Warm/Dry, Ecchymosis (right upper extremity) Results Lab Laboratory Tests 12/25/18 04:45: White Blood Count 14.9H, Red Blood Count 3.03L, Hemoglobin 8.9L, Hematocrit 28L , Mean Corpuscular Volume 94, Mean Corpuscular Hemoglobin 29, Mean Corpuscular Hemoglobin Concent 31L, Red Cell Distribution Width 16.0H, Platelet Count 163, Mean Platelet Volume 10.1, Neutrophils (%) (Auto) 93H, Lymphocytes (%) (Auto) 3L , Monocytes (%) (Auto) 4, Eosinophils (%) (Auto) 1, Basophils (%) (Auto) 0, Neutrophils # (Auto) 13.8H, Lymphocytes # (Auto) 0.4L, Monocytes # (Auto) 0.6, Eosinophils # (Auto) 0.2, Basophils # (Auto) 0.0, Prothrombin Time 13.8, INR Comment 1.1, Sodium Level 140, Potassium Level 4.7, Chloride Level 110H, Carbon Dioxide Level 24, Anion Gap 6, Blood Urea Nitrogen 49H, Creatinine 1.15, Estimat Glomerular Filtration Rate 46, BUN/Creatinine Ratio 43, Glucose Level 117H, Calcium Level 8.0L, Corrected Calcium 9.9, Phosphorus Level 4.3, Magnesium Level 2.3, Total Bilirubin 0.2, Aspartate Amino Transf (AST/SGOT) 32, Alanine Aminotransferase (ALT/SGPT) 10, Alkaline Phosphatase 62, Total Protein 3.9L, Albumin 1.6L, Triglycerides Level 92 12/25/18 05:14: Glucometer 127H Microbiology 12/22/18 Blood Culture - Preliminary, Resulted No growth 12/22/18 Urine Culture - Final, Complete NO GROWTH Assessment/Plan Assessment/Plan Assess & Plan/Chief Complaint s/p total colectomy for toxic megacolon. WBC improving. Ileostomy functioning and will DC NGT. Start Clear liquids. Clinical Quality Measures DVT/VTE Risk/Contraindication: Risk Factor Score Per Nursin RFS Level Per Nursing on Admit: 3=[facility] APRN Dec 25, 2018 11:39
--- NOTE | 2018-12-25 11:59 | Progress Note-Hospitalist ---
Subjective HPI/CC On Admission Date Seen by Provider: Dec 25, 2018 Time Seen by Provider: 10:45 Subjective/Events-last exam Patient sleeping soundly Appears very fragile and declined while sleeping Very fragile medical issues Vanc maintained Reviewed vitals and labs and meds Review of Systems General: Fatigue Focused Exam Lactate Level 12/22/18 13:25: Lactic Acid Level 0.87 Objective Exam Vital Signs Vital Signs Date Time Temp Pulse Resp B/P (MAP) Pulse Ox O2 Delivery O2 Flow Rate FiO2 12/25/18 10:24 97 High Flow N/C 3.00 12/25/18 08:00 97.6 91 20 96/60 (72) 12/23/18 15:42 32 Capillary Refill : Less Than 3 SecondsLess Than 3 Seconds General Appearance: No Apparent Distress, Chronically ill, Cachetic, Other ( declined, thin, sleepy) HEENT: Normal ENT Inspection Neck: Normal Inspection, Non Tender, Supple Respiratory: Lungs Clear, Normal Breath Sounds, No Accessory Muscle Use, No Respiratory Distress Cardiovascular: Regular Rate, Rhythm, No Murmur Gastrointestinal: Normal Bowel Sounds Rectal: Deferred Back: No CVA Tenderness Extremity: Pedal Edema, Swelling (3+) Neurologic/Psychiatric: Alert, Oriented x3 Skin: Warm/Dry, Ecchymosis (right upper extremity) Lymphatic: No Adenopathy Results/Procedures Lab Laboratory Tests 12/25/18 04:45 Patient resulted labs reviewed. Assessment/Plan Assessment and Plan Assess & Plan/Chief Complaint Respiratory failure s/p intubation Ileus with NGT placement Enterococcus on Bcx added Vanc yesterday morning Assessment per PCP Dr Paz: 1. 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 Acute Exacerbation of COPD--on weaning dose of solumedrol 3. RLL Pneumonia--cont Maxipime 4. Fall with left wrist skin tear and left knee contusion--wounds dressed 5. Thrush--on diflucan 6. Acute Renal Insufficiency--hydrate and monitor Cr 7. Acute on Chronic Respiratory Failure--off ventilator 8. Acute on Chronic Diastolic CHF--on IV lasix and diuresing well 9. Acute on Chronic Anemia--S/P transfusion, monitor H/H 10. Severe Sepsis--on maxipime and sepsis protocol 11. Condition guarded DNR Very declined status [place] transfer on hold NHT placement Very guarded status Critical Care Critically Ill Patient Diagnosis/Problems Diagnosis/Problems (1) Ileus Status: Acute (2) Bacteremia due to Enterococcus Status: Acute (3) Nasogastric tube present Status: Acute (4) Respiratory failure Status: Resolved Qualifiers: Chronicity: acute Respiratory failure complication: hypoxia Qualified Codes: J96.01 - Acute respiratory failure with hypoxia Resolution Date/Time: 12/24/18 @ 19:57 (5) Pneumonia Status: Resolved Qualifiers: Pneumonia type: due to unspecified organism Resolution Date/Time: 12/24/18 @ 19:57 (6) Anemia Status: Chronic Qualifiers: Anemia type: unspecified type Qualified Codes: D64.9 - Anemia, unspecified (7) Transfusion of blood during current hospitalization Status: Resolved Resolution Date/Time: 12/24/18 @ 19:57 (8) Elevated troponin Status: Resolved Resolution Date/Time: 12/24/18 @ 19:57 (9) Frailty Status: Acute (10) COPD (chronic obstructive pulmonary disease) Status: Chronic Qualifiers: COPD type: unspecified COPD Qualified Codes: J44.9 - Chronic obstructive pulmonary disease, unspecified (11) S/P cardiac cath Status: Acute (12) Toxic megacolon Status: Resolved Resolution Date/Time: 12/17/18 @ 14:47 (13) S/P colectomy Status: Acute Clinical Quality Measures DVT/VTE Risk/Contraindication: Risk Factor Score Per Nursin RFS Level Per Nursing on Admit: 3=High ANGIE MALONE DO Dec 25, 2018 11:59
--- NOTE | 2018-12-25 12:46 | Pulmonary Progress Note ---
Subjective Time Seen by a Provider: 12:45 Subjective/Events-last exam PT appears very weak. Sepsis Event Evaluation Height, Weight, BMI Height: 5'0.00" Weight: 132lbs. 12.8oz. 60.503761tv; 20.6 BMI Method:Stated Focused Exam Lactate Level 12/22/18 13:25: Lactic Acid Level 0.87 Exam Exam Vital Signs Date Time Temp Pulse Resp B/P (MAP) Pulse Ox O2 Delivery O2 Flow Rate FiO2 12/25/18 10:24 97 High Flow N/C 3.00 12/25/18 08:00 97.6 91 20 96/60 (72) 96 High Flow N/C 3.00 12/25/18 07:03 93 12/25/18 06:30 96 High Flow N/C 3.00 12/25/18 04:00 97.6 90 16 110/53 (72) 98 High Flow N/C 3.00 12/25/18 02:31 High Flow N/C 3.00 12/25/18 01:00 84 12/24/18 23:46 98.7 92 20 108/53 (71) 99 High Flow N/C 3.00 12/24/18 20:00 High Flow N/C 6.00 12/24/18 20:00 98.1 86 21 129/60 (83) 97 High Flow N/C 3.00 12/24/18 19:00 79 12/24/18 18:52 97 High Flow N/C 3.00 12/24/18 18:00 97.4 84 24 113/56 (75) 98 High Flow N/C 3.00 12/24/18 17:00 98.7 82 22 121/58 (79) 93 High Flow N/C 3.00 12/24/18 16:00 97.9 87 26 134/62 (86) 97 High Flow N/C 3.00 12/24/18 15:17 94 High Flow N/C 3.00 12/24/18 12:46 86 I & O 12/25/18 07:00 Intake Total 210 ml Output Total 1805 ml Balance -1595 ml Height & Weight Height: 5'0.00" Weight: 132lbs. 12.8oz. 60.513064jo; 20.6 BMI Method:Stated General Appearance: No Apparent Distress HEENT: Normal ENT Inspection Neck: Normal Inspection, Non Tender, Supple Respiratory: Lungs Clear, Normal Breath Sounds, No Accessory Muscle Use, No Respiratory Distress Cardiovascular: Regular Rate, Rhythm, No Murmur Capillary Refill: Less Than 3 Seconds Gastrointestinal: soft, tenderness, other (Ileostomy functioning) Extremity: Pedal Edema, Swelling (3+) Neurologic/Psychiatric: Alert, Oriented x3 Skin: Warm/Dry, Ecchymosis (right upper extremity) Lymphatic: No Adenopathy Results Lab Laboratory Tests 12/24/18 05:45 12/25/18 04:45 Assessment/Plan Assessment/Plan Acute on chronic Respiratory failure -OXygen -SVNS -Monitor s/p acute abdomen secondary to toxic megacolon and ischemia s/p surgery -Dr. Yates is following -Repeat CT of abd/pelvis - shows mod r effusion. free fluid in abd, and possible bowl obstruction -Dr. Yates is following Moderate right pleural effusion -Monitor for now Severe sepsis with septic shock - improving -Continue Merrem/flagyl Worsening Leukocytosis -repan culture -MRSA swab ARF-- improving -Lasix stopped yesterday -Hold ARB -IVF started CHF hx EF 30% -Hold Lasix COPDAE -SVNS Atelectasis with pneumonia -Merrem ARF -monitor Anxiety HTN Weakness -Consult PT/OT Pt is very fragile with guarded prognosis. Consider hospice. GREGOR JOSEPH DO Dec 25, 2018 12:46
[2018-12-25] MEDS ORDERED: VANCOMYCIN INJECTION 750 MG in NS (IVPB) 250 ML IV SCH (13:00)
--- NOTE | 2018-12-25 14:41 | Progress Note-Cardiology ---
Cardiology SOAP Progress Note Subjective: Barely responsive Doesn't talk or relate symptoms Does acknowledge my presence by nodding Objective: I&O/Vital Signs 12/25/18 12/25/18 12/25/18 12/25/18 04:00 06:30 07:03 08:00 Temp 97.6 97.6 Pulse 90 93 91 Resp 16 20 B/P (MAP) 110/53 (72) 96/60 (72) Pulse Ox 98 96 96 O2 Delivery High Flow N/C High Flow N/C High Flow N/C O2 Flow Rate 3.00 3.00 3.00 12/25/18 12/25/18 10:24 13:57 Pulse Ox 97 92 O2 Delivery High Flow N/C High Flow N/C O2 Flow Rate 3.00 3.00 12/25/18 00:00 Intake Total 100 ml Output Total 1430 ml Balance -1330 ml Weight (Pounds): 132 Weight (Ounces): 12.8 Weight (Calculated Kilograms): 60.624405 Constitutional: other (appears weak and tired, barely responsive) Respiratory: chest expansion is symmetric, chest is bilaterally symmetric, rhonchi (scattered), other (prolonged expiratory phase) Cardiovascular: No JVD; tachycardia, S1 and S2, systolic murmur Gastrointestional: other (post op abdomen, ileostomy; wound vac in place; NG tube in place to left nare) Extremities: swelling (generalized edema) Neurologic/Psychiatric: other (cannot cooperate with a neuro exam; appears very weak; barely responds to commands) Skin: cool; No diaphoresis, No rash, No ulcerations; other (multiple bruises to arms and legs bilat) Results/Procedures: Labs Laboratory Tests 12/25/18 04:45: White Blood Count 14.9H, Red Blood Count 3.03L, Hemoglobin 8.9L, Hematocrit 28L , Mean Corpuscular Volume 94, Mean Corpuscular Hemoglobin 29, Mean Corpuscular Hemoglobin Concent 31L, Red Cell Distribution Width 16.0H, Platelet Count 163, Mean Platelet Volume 10.1, Neutrophils (%) (Auto) 93H, Lymphocytes (%) (Auto) 3L , Monocytes (%) (Auto) 4, Eosinophils (%) (Auto) 1, Basophils (%) (Auto) 0, Neutrophils # (Auto) 13.8H, Lymphocytes # (Auto) 0.4L, Monocytes # (Auto) 0.6, Eosinophils # (Auto) 0.2, Basophils # (Auto) 0.0, Prothrombin Time 13.8, INR Comment 1.1, Sodium Level 140, Potassium Level 4.7, Chloride Level 110H, Carbon Dioxide Level 24, Anion Gap 6, Blood Urea Nitrogen 49H, Creatinine 1.15, Estimat Glomerular Filtration Rate 46, BUN/Creatinine Ratio 43, Glucose Level 117H, Calcium Level 8.0L, Corrected Calcium 9.9, Phosphorus Level 4.3, Magnesium Level 2.3, Total Bilirubin 0.2, Aspartate Amino Transf (AST/SGOT) 32, Alanine Aminotransferase (ALT/SGPT) 10, Alkaline Phosphatase 62, Total Protein 3.9L, Albumin 1.6L, Triglycerides Level 92 12/25/18 05:14: Glucometer 127H Microbiology 12/22/18 Blood Culture - Preliminary, Resulted No growth 12/22/18 Urine Culture - Final, Complete NO GROWTH Laboratory Tests 12/24/18 05:45 12/25/18 04:45 A/P: Assessment: Surgery for toxic megacolon and ischemic bowel on 12/14/18 - s/p ileostomy - CT of 12-22-18 - probable ileus Ac on chronic resp failure due to ac exac of COPD and ac giron CHF Marked anemia of undetermined etiology, followed and treated by the [facility], s/ p transfusion Ac NSTEMI, but card cath of 12/06/18 shows only minimal CAD and elevated LVEDP. Cath in 2008, following NSTEMI, had also not shown any significant CAD Worsening leukocytosis - management per medical/surgical services S/P non-syncopal fall on 12-05-18 resulting in multiple abrasions Chronic kidney disease, stage 3, with some contrast nephropathy post card cath of 12/06/18 TIA on Mar 08 2018 for which she was seen in the ED Severe chronic obstructive pulmonary disease due to prior tobaccoism. Tobaccoism that she quit in 2005. H/O cardiomyopathy with an ejection fraction of 30%, both ischemic and non- ischemic per cardiac catheterization from December 2008. Most recent echocardiogram of May 2017 showed LVEF 55-60%. Mild to mod AoR, TR, and MR. Diastolic dysfunction. Palpitations, probably related to known paroxysmal supraventricular tachycardia/ atrial fibrillation, currently controlled. The patient is considered intolerant to warfarin for several reasons, including episodes of marked epistaxis and hemoptysis, even without warfarin therapy. Also, she is prone to falls, given her generalized frail status. She refuses any oral anticoagulants; agrees only to aspirin for stroke prophylaxis Severe anxiety, currently controlled. Osteoporosis and degenerative joint disease Gastroesophageal reflux. H/O intermittent congestive heart failure due to diastolic and systolic dysfunction of the left ventricle, currently controlled. Hyperlipidemia, well controlled on therapy with simvastatin. H/o left cataract surgery. Mild ascending aortic aneurysm measuring 4.2 cm found incidentally on a CT scan or 07/10/[address] King [place] nodules being followed by Dr King Carotid u/s of 04/19/18: less than 40% ROSY, 50-60% LICA stenoses Diagnosis of hypothyroidism in April 2018, managed by Dr Paz, but she had been noncompliant with thyroid replacement therapy Plan: * Complex management due to multiple comorbidities * Prognosis guarded to poor * Monitor lab closely CASSIE ARANA MD FACP FACC CCDS Dec 25, 2018 14:41
[2018-12-25 16:33] VITALS: BP 95/60
--- NOTE | 2018-12-25 17:45 | NUR ---
pt diet changed to clear liquid. dr horta gave the okay to continue to give po medicine with applesauce due to pt tolerating it really well.
[2018-12-25] MEDS: FAMOTIDINE 20 MG (PEPCID) TABLET PO SCH (18:06)
[2018-12-25] MEDS: SODIUM ACETATE IV SCH ×9 (18:10)
[2018-12-25] MEDS: ENOXAPARIN 30 MG/0.3 ML (LOVENOX) SYR SC SCH (18:10)
[2018-12-25] MEDS: SODIUM CHLORIDE IV SCH ×9 (18:10)
[2018-12-25] MEDS: [UNRECOGNIZED DRUG - OTHER] IV SCH ×9 (18:10)
--- NOTE | 2018-12-25 21:25 | NUR ---
ENTERED PATIENT'S ROOM TO ADMINISTER MEDICATION. PATIENT WAS UNRESPONSIVE. SIGNS OF LIFE WERE ABSENT. CHARBEL HILLIARD VERIFIED NO HEARTBEAT NO BREATH SOUNDS FOR PATIENT. C ENGINEER/FAMILY/[facility] CONTACTED. Addendum: 12/25/18 at 2152 by KALEIGH HARMON RN DR MALONE WAS ALSO CONTACTED AT THIS TIME Addendum: 12/26/18 at 0054 by KALEIGH HARMON RN PATIENTS IJ AND LOPEZ REMOVED. COLOSTOMY BAG REMAINS INTACT, WOUND VAC REMOVED- DRESSING INTACT.
--- NOTE | 2018-12-25 22:00 | NUR ---
DR MCGEE AND FAMILY AT BEDSIDE. FAMILY TOOK PATIENT BELONGINGS HOME WITH THEM.
--- NOTE | 2018-12-26 00:13 | NUR ---
PATIENT PICKED UP BY HOME, AND TRANSPORTED FROM BUILDING/
[2018-12-26] MEDS ORDERED: TROUGH ORDER-PHARMACY XX NR (12:00)
--- NOTE | 2018-12-27 22:10 | Physician Query-General Query ---
Physician Query-General Query to Physician: Please document cause of . PHYSICIAN RESPONSE: Based on the clinical findings in the record, please respond to the query above on this document as an addendum. Possible, probable, or questionable diagnosis can be coded for INPATIENTS ONLY. Physician Response: Physician Response Respiratory failure If you have questions please contact: Resident Care Supervisor: Ext: Thank you for your time and cooperation. Clinical Directory Operator/Resident Care Supervisor This is a permanent part of the medical record CHEPE HOOD Dec 27, 2018 22:10 ANGIE MALONE DO Dec 28, 2018 08:36
--- NOTE | 2019-01-03 20:12 | Discharge Summary ---
Diagnosis/Chief Complaint Date of Admission Dec 05, 2018 at 19:14 Date of Discharge Dec 25, 2018 at 21:25 Discharge Diagnosis 1. Severe Sepsis 2. Toxic Megacolon--S/P total colectomy with ileostomy 3. Post-op Ileus 4. Acute Respiratory Failure 5. End Stage COPD 6. Anasarca 7. NonSTEMI 8. Worsening Debility 9. Acute on Chronic Combined Diastolic/Systolic CHF 10 Acute on Chronic Anemia 11. Fall with skin tears 12. GERD Reason Hospital Visit This is a 78 year old female who was in the parking lot of a local store getting into her car when the wind caught her car door striking her and causing her to fall. She did not lose consciousness or hit her head so she drove home. However, she was unable to stop the bleeding from her left wrist skin tear so she called EMS. She was brought to the ER where her wounds were bandaged. HOwever, she was complaining of some chest tightness so cardiac enzymes were done which did show an elevated troponin level. Cardiology was consulted and wanted the patient admitted to pursue a cardiac catheterization. Discharge Summary Hospital Course Hospital Course This is a 78 year old female who was in the parking lot of a local store getting into her car when the wind caught her car door striking her and causing her to fall. She did not lose consciousness or hit her head so she drove home. However, she was unable to stop the bleeding from her left wrist skin tear so she called EMS. She was brought to the ER where her wounds were bandaged. However, she was complaining of some chest tightness so cardiac enzymes were done which did show an elevated troponin level. Cardiology was consulted and wanted the patient admitted to pursue a cardiac catheterization. She was taken to the cardiac catheterization lab but no blockages were found to warrant angioplasty or stent placement so medical management was pursued. However, she had worsening respiratory status with pneumonia as well as exacerbation of COPD. She was given IV meropenem as well as IV solumedrol and SVNs with albuterol. She was improving from a pulmonary standpoint but was very weak and debilitated when she developed abdominal distention with severe abdominal pain and a significant elevation in her WBC count. She was taken for a stat CT scan and transferred to the ICU. There was no bowel obstruction but the patient's condition worsened and she had to be taken emergently to surgery where she was found to have toxic megacolon and underwent a total colectomy with ileostomy. Following this procedure, a wound vac was placed to her incision and she was continued on meropenem and her WBC count continued to decrease. However, she remained very debilitated and so evaluation for [place] was obtained. On the day of transfer to [place], the patient's WBC count spiked again and so the discharge was postponed and another stat CT scan of the abdomen was ordered. This showed no evidence of abscess but did confirm a post-op ileus so an NG tube was placed and Dr. Yates performed gentle manipulation of her ileostomy. Her CXR showed clearing of her pneumonia and her respiratory status was much improved but she remained in a very weakened and debilitated state. She was found without respirations on evening of 12/25/18. Her family was notified and her body was released to the home of their choice. Procedures Total Colectomy with ileostomy Consultations Dr. Milan Soto Discharge Physical Examination Allergies: Coded Allergies: diphenhydramine HCl (Unverified Allergy, Severe, anaphalaxis, 09/10/14) Pt states this happened several yrs ago and that she had almost forgotten about it because she has avoided t for so long. fentanyl (Unverified Allergy, Mild, 09/10/14) PT DOES NOT WANT TO TAKE--SHE STAES IT MADE HER COPD WORSE midazolam (Unverified Allergy, Mild, PT TAKE LIBRIUM AT HOME, 09/10/14) PT DOESN'T WANT TO TAKE--SHE STATED IT MADE HER COPD OWRSE. Beta-Blockers (Beta-Adrenergic Bloc (Verified Allergy, Unknown, 09/10/14) Cephalosporins (Verified Allergy, Unknown, HAS RECEIVED CEFEPIME IN PAST W /O PROBLEM, 09/14/14) Penicillins (Verified Allergy, Unknown, HAS REC AZACTAM IN PAST WITHOUT PROBLEMS, 09/10/14) risedronic acid (Verified Allergy, Unknown, 09/10/14) prednisone (Unverified Adverse Reaction, Intermediate, Large doses cause SOA, 09/10/14) meperidine (Unverified Adverse Reaction, Mild, NAUSEA, 09/10/14) propofol (Unverified Adverse Reaction, Mild, 09/10/14) PT DOES NOT WANT TO TAKE--SHE STATES IT MADE HER COPD WORSE erythromycin base (Verified Adverse Reaction, Unknown, MAKES PATIENT NAUSEADED, 09/10/14) General Appearance: Other (resting) Respiratory: Clear to Auscultation Cardiovascular: Regular Rate Abdominal: Other (ostomy and wound vac) Extremities: Other (anasarca) Skin: Other (ecchymosis and skin tears) Neuro: Other (debilitation) Discharge Home Medications Reviewed and agree with Discharge Medication list on patient's Discharge Instruction sheet Instructions to Patient/Family Please see electronic discharge instructions given to patient. Clinical Quality Measures DVT/VTE Risk/Contraindication: Risk Factor Score Per Nursin RFS Level Per Nursing on Admit: 3=High MELODY MCGEE DO Jan 03, 2019 20:12
== END 2018-12-25 21:25 | disposition expired | DRG 264 ==
LOC: EDUNIT# 16:07 → ER 16:08 → ICU 19:14 → 4TH 12-09 10:55 → ICU 12-13 09:30 → 4TH 12-20 10:42
PROVIDERS: ADMIT Family Medicine; ATTEND Family Medicine
PROC: 4A023N7 Measurement of Cardiac Sampling and Pressure, Left Heart, Percutaneous Approach (ICD-10-PCS; principal; 2018-12-06)
PROC: B2111ZZ Fluoroscopy of Multiple Coronary Arteries using Low Osmolar Contrast (ICD-10-PCS; 2018-12-06)
PROC: B2151ZZ Fluoroscopy of Left Heart using Low Osmolar Contrast (ICD-10-PCS; 2018-12-06)
PROC: 0DTE0ZZ Resection of Large Intestine, Open Approach (ICD-10-PCS; 2018-12-14)
PROC: 0D1B0Z4 Bypass Ileum to Cutaneous, Open Approach (ICD-10-PCS; 2018-12-14)
DX: I21.4 Non-ST elevation (NSTEMI) myocardial infarction (principal); I13.0 Hypertensive heart and chronic kidney disease with heart failure and stage 1 through stage 4 chronic kidney disease, or unspecified chronic kidney disease; I50.43 Acute on chronic combined systolic (congestive) and diastolic (congestive) heart failure; J18.1 Lobar pneumonia, unspecified organism; I47.1 Supraventricular tachycardia; K59.31 Toxic megacolon; B37.0 Candidal stomatitis; N39.0 Urinary tract infection, site not specified; Z66 Do not resuscitate; J96.21 Acute and chronic respiratory failure with hypoxia; N17.9 Acute kidney failure, unspecified; E87.0 Hyperosmolality and hypernatremia; A41.9 Sepsis, unspecified organism; R65.21 Severe sepsis with septic shock; K91.89 Other postprocedural complications and disorders of digestive system; N18.3 Chronic kidney disease, stage 3 (moderate); J43.9 Emphysema, unspecified; I25.10 Atherosclerotic heart disease of native coronary artery without angina pectoris; I48.91 Unspecified atrial fibrillation; F43.10 Post-traumatic stress disorder, unspecified; M81.0 Age-related osteoporosis without current pathological fracture; D64.9 Anemia, unspecified; S80.02XA Contusion of left knee, initial encounter; S51.812A Laceration without foreign body of left forearm, initial encounter; S60.221A Contusion of right hand, initial encounter; S80.211A Abrasion, right knee, initial encounter; Z87.891 Personal history of nicotine dependence; Z99.81 Dependence on supplemental oxygen; V03.00XA Pedestrian on foot injured in collision with car, pick-up truck or van in nontraffic accident, initial encounter; Y92.59 Other trade areas as the place of occurrence of the external cause
CPT/HCPCS: 36415; 36600; 70450; 71045; 71046; 71250; 72125; 73090; 73110; 73562; 74176; 74177; 74270; 76937; 80048; 80053; 80061; 80162; 81000; 82274; 82330; 82805; 82962; 83605; 83690; 83735; 83874; 83880; 84100; 84132; 84134; 84443; 84478; 84484; 85007; 85014; 85018; 85025; 85027; 85347; 85610; 85730; 86850; 86900; 86901; 86920; 87040; 87077; 87088; 87186; 88307; 90471; 90715; 93005; 93458; 94002; 94003; 94640; 94660; 94760; 94799; 96365